=== PATIENT | male | born 1960 | race Caucasian/White ===

== ENCOUNTER → 2020-06-09 09:30 | Outpatient (BNV) | payer MEDICARE, OTHER, MEDICAID, SELFPAY | PROVIDERS: PCP Internal Medicine; Visit Provider Internal Medicine | DX: C18.0 Malignant neoplasm of cecum (principal); C78.7 Secondary malignant neoplasm of liver and intrahepatic bile duct; N17.9 Acute kidney failure, unspecified; E87.5 Hyperkalemia | CPT/HCPCS: 99212; 99213; 99214; 99215; G2211 ==

== ENCOUNTER → 2020-08-10 13:47 | Outpatient (BNVA) | payer OTHER, SELFPAY | PROVIDERS: PCP Internal Medicine; Visit Provider Hospitalist | DX: Z76.89 Persons encountering health services in other specified circumstances (principal) ==

== ENCOUNTER → 2020-11-08 13:27 | Outpatient (BNVA) | payer OTHER, SELFPAY | PROVIDERS: PCP Internal Medicine; Visit Provider Hospitalist | DX: J84.10 Pulmonary fibrosis, unspecified (principal); J84.9 Interstitial pulmonary disease, unspecified; J96.11 Chronic respiratory failure with hypoxia; C18.9 Malignant neoplasm of colon, unspecified; C78.7 Secondary malignant neoplasm of liver and intrahepatic bile duct; Z79.899 Other long term (current) drug therapy; Z87.891 Personal history of nicotine dependence | CPT/HCPCS: 99212 ==

== ENCOUNTER 2020-12-08 07:50 | Outpatient (REF) | payer OTHER, SELFPAY ==
--- NOTE | ~2020-12-08 | CT_ITS ---
EXAMINATION: CT CHEST WITHOUT IV CONTRAST AND ABDOMEN AND PELVIS WITH AND WITHOUT IV CONTRAST CLINICAL INFORMATION: Colon cancer. Worsening liver function tests. COMPARISON: Previous chest x-rays most recent April 2020, chest CT June [address] of the abdomen and pelvis September 2019 TECHNIQUE: Axial images through the chest without contrast. Axial images through the abdomen and pelvis with and without contrast. Sagittal and coronal reconstructions on the technologist workstation were performed. Patient dose 172+800 mg/cm. This CT examination was performed using dose optimization techniques as appropriate, variously including the following: *Automated exposure control *Adjustment of mA and/or kV according to patient size (this includes techniques or standardized protocols for targeted exams where dose is matched to indication/reason for exam; i.e. extremities or head) *Use of iterative reconstruction technique FINDINGS: Chest: There are increased peripheral interstitial markings with increased peripheral reticulation, traction bronchiolectasis and question of some honeycombing. This is seen diffusely throughout the lungs. This does not appear appreciably changed from June 2019 exam. There is a 5 mm peripheral or subpleural right upper lobe nodule adjacent to the mediastinal surface axial image 104 series 7 that is stable. There is a 3 mm peripheral or subpleural left upper lobe nodule adjacent to the central mediastinal surface axial image 98 series 7 that is stable. There is a new 7 mm left upper lobe nodule axial image 235 series 7. There is a new 4 mm left upper lobe nodule axial image 268 series 7. There is a new 4 mm left lower lobe nodule axial image 3/7. There is a new 4 mm left lower lobe nodule axial image 316 series 7. There is a new 4 x 5 mm left lower lobe nodule axial image 417 series 7. There is question of a a new peripheral or subpleural right lower lobe nodule that measures 7 x 8 mm axial image 275 series 7. There is a right jugular port with tip projecting over the SVC. The heart does not appear enlarged. There is mild coronary artery calcification. There is no pericardial effusion. The thoracic aorta is normal in caliber. There are no enlarged hilar or mediastinal lymph nodes. No chest wall mass or enlarged axillary lymph nodes are seen. There is no pleural or pericardial effusion. Review of bone windows demonstrates degenerative changes of the spine. ABDOMEN: The liver is low in attenuation suggestive of fatty infiltration. There are multiple slightly high attenuation liver lesions seen in both lobes of the liver. These do not demonstrate appreciable enhancement post contrast and appear decreased in size from prior CT September 2019. These may represent treated lesions. The largest lesion measures 1.5 x 2.5 cm in the left lobe axial image 19 compared to 2.3 x 2.8 cm axial image 17 series 09/15/2019 and 2.2 cm in the right lobe axial image 21 compared to 2.6 x 3.2 cm axial image 13 series 09/15/2019. No new liver lesion is seen. The gallbladder is unremarkable. There is no biliary duct dilatation. The spleen is unremarkable. The pancreas is unremarkable. The adrenal glands are unremarkable. There are small lateral renal cysts. The kidneys are otherwise unremarkable. The bladder is unremarkable. Prostate gland is upper normal in size. There is diverticulosis of the colon. There is diffuse wall thickening and low attenuation suggestive of a edema in the colon from the right colon and transverse colon and left colon and proximal sigmoid colon. Findings are questionable for colitis. Air is a left lower quadrant ileostomy. The appendix is unremarkable. The stomach is unremarkable. Definite colon mass is not appreciated. There is a stranding of the fat seen in the root of the small bowel mesentery. This does not appear appreciably changed. No adenopathy is seen. No evidence of peritoneal disease is seen. There is no ascites. No significant hernia is seen. There is evidence of atherosclerotic disease. No aneurysm is seen. The prostate gland is slightly enlarged. There are degenerative changes of the spine. No bone lesion is seen. CT/CT abdomen pelvis wo/w con IMPRESSION: Chest: Peripheral interstitial lung disease not appreciably changed from previous exam from 2019. New lobe pulmonary nodules, largest measuring 7 mm in the left upper lobe and question 7 x 8 mm in the right lower lobe. Abdomen and pelvis: Low-attenuation liver suggestive of fatty infiltration. Multiple partially calcified liver lesions that do not demonstrate evidence of enhancement and appear decreased in size compared to prior exams. This may represent a treated liver lesions. No new liver lesion seen. Diverticulosis of the colon. Wall thickening and edema of the right transverse and left colon questionable for mild colitis. Left lower quadrant ileostomy. No colon mass appreciated.
[2020-12-08] MEDS: iohexoL 350 MG/ML 100 ML INFUS..BTL IV (11:04)
== END 2020-12-08 07:51 | disposition home or self-care (01) ==
LOC: HO.CT 07:50
PROVIDERS: PCP Internal Medicine; Referring Provider Hospitalist; Visit Provider Internal Medicine
DX: C18.9 Malignant neoplasm of colon, unspecified (principal); C78.7 Secondary malignant neoplasm of liver and intrahepatic bile duct; J84.9 Interstitial pulmonary disease, unspecified; J84.10 Pulmonary fibrosis, unspecified
CPT/HCPCS: 71250; 74178; Q9967

== ENCOUNTER → 2021-02-04 13:30 | Outpatient (BNVA) | payer OTHER, SELFPAY | PROVIDERS: PCP Internal Medicine; Visit Provider Hospitalist | DX: R91.1 Solitary pulmonary nodule (principal); C18.9 Malignant neoplasm of colon, unspecified; C78.7 Secondary malignant neoplasm of liver and intrahepatic bile duct; J84.10 Pulmonary fibrosis, unspecified; J84.9 Interstitial pulmonary disease, unspecified; J96.11 Chronic respiratory failure with hypoxia | CPT/HCPCS: 99212 ==

== ENCOUNTER 2021-02-11 14:03 | Outpatient (REF) | payer OTHER, SELFPAY ==
--- NOTE | ~2021-02-11 | CT_ITS ---
EXAMINATION: CT CHEST WITHOUT CONTRAST CLINICAL INFORMATION: Follow-up pulmonary nodule COMPARISON: Previous chest CT most recent November 2020 TECHNIQUE: Multidetector volumetric CT imaging of the chest was done. Axial MIP volume rendering provided. Sagittal and coronal reformatted images were obtained. This CT examination was performed using dose optimization techniques as appropriate, variously including the following: *Automated exposure control *Adjustment of mA and/or kV according to patient size (this includes techniques or standardized protocols for targeted exams where dose is matched to indication/reason for exam; i.e. extremities or head) *Use of iterative reconstruction technique DLP: 156 mGy-cm FINDINGS: LUNGS: There are increased peripheral interstitial markings with increased peripheral reticulation and traction bronchiolectasis and question some honeycombing. This is seen diffusely throughout the lungs. Appearances are suggestive of interstitial lung disease. This does not appear appreciably changed from previous exams. There is a 5 mm peripheral right upper lobe nodule near the mediastinal surface, axial 120 series 7, that is stable. There is a 3 mm peripheral left upper lobe nodule near the mediastinal surface, axial image 115 series 7, that is stable. The previously identified new peripheral left upper lobe nodule measuring 7 mm, axial image 251 series 7, is unchanged. The previously identified 4 mm left upper lobe nodule, axial image 287 series 7, is stable. The questioned new peripheral or subpleural 7 mm right lower lobe nodule, axial image 292 series 7, is stable. The new 4 mm left lower lobe nodule, axial image 329 series 4, is stable. The 4 mm peripheral left lower lobe nodule, axial image 436 series 7, is stable. Some of these nodules may be related to progression of interstitial lung disease. MEDIASTINUM: There is a right jugular port tip projecting over the SVC. The visualized thyroid gland is unremarkable. The heart does not appear enlarged. There is mild coronary artery and aortic valve calcification. There is no pericardial effusion. The thoracic aorta is normal in caliber. PLEURA: There is no pleural effusion. No pleural mass or thickening. AXILLA: No lymphadenopathy. UPPER ABDOMEN: There are multiple high attenuation lesions seen throughout the liver. These do not appear appreciably changed and may represent treated lesions. Images through the upper abdomen are otherwise unremarkable. OSSEOUS STRUCTURES: There are degenerative changes of the spine. CT/CT chest wo con IMPRESSION: Interstitial lung disease. Stable pulmonary nodules. Coronary artery and aortic valve calcification. Stable appearance to the liver.
== END 2021-02-11 14:04 | disposition home or self-care (01) ==
LOC: HO.CT 14:03
PROVIDERS: PCP Internal Medicine; Visit Provider Hospitalist
DX: R91.1 Solitary pulmonary nodule (principal)
CPT/HCPCS: 71250

== ENCOUNTER → 2021-04-07 13:51 | Outpatient (BNVA) | payer OTHER, SELFPAY | PROVIDERS: PCP Internal Medicine; Visit Provider Hospitalist | DX: R91.1 Solitary pulmonary nodule (principal); C18.9 Malignant neoplasm of colon, unspecified; C78.7 Secondary malignant neoplasm of liver and intrahepatic bile duct; J84.10 Pulmonary fibrosis, unspecified; J84.9 Interstitial pulmonary disease, unspecified; J96.11 Chronic respiratory failure with hypoxia; Z79.899 Other long term (current) drug therapy | CPT/HCPCS: 99212 ==

== ENCOUNTER 2021-07-13 13:56 | Outpatient (REF) | payer MEDICARE, MEDICAID, SELFPAY ==
--- NOTE | ~2021-07-13 | CT_ITS ---
EXAMINATION: CT ABDOMEN AND PELVIS WITH CONTRAST CLINICAL INFORMATION: Malignant neoplasm of colon. COMPARISON: CT abdomen and pelvis 12/08/2020. TECHNIQUE: Multidetector volumetric images were obtained from the superior aspect of the liver through the pubic symphysis following administration 85 mL of Omnipaque 350 intravenous contrast. Sagittal and coronal reformatted images were obtained on the technologist's workstation. Oral contrast: No This CT examination was performed using dose optimization techniques as appropriate, variously including the following: *Automated exposure control *Adjustment of mA and/or kV according to patient size (this includes techniques or standardized protocols for targeted exams where dose is matched to indication/reason for exam; i.e. extremities or head) *Use of iterative reconstruction technique DLP: 301 mGy-cm FINDINGS: LUNG BASES: There is patchy ground-glass attenuation seen in the lingula, right middle lobe and both lower lobes likely atelectasis or scarring. The heart size is normal. LIVER, GALLBLADDER, AND BILIARY TREE: The liver is normal in size, shape, and mildly attenuated. There are hypodense lesions with peripheral enhancement most prominent in the left hepatic lobe measuring 1.7 x 1.0 cm. Previously, the same lesion was slightly larger and showed more heterogeneous enhancement and measured 1.5 x 2.5 cm. There is a second larger lesion in the right hepatic lobe posterior segment. The gallbladder is unremarkable with no evidence of radiopaque gallstones, gallbladder wall thickening, or obvious pericholecystic inflammatory changes. PANCREAS: Unremarkable. SPLEEN: Unremarkable. ADRENAL GLANDS: Unremarkable. KIDNEYS AND URETERS: The kidneys are normal in size, shape, and attenuation. No hydronephrosis, hydroureter, or calculi seen. No perinephric stranding. There is a 1.2 cm nonenhancing lesion midpole left kidney, likely a cyst. It is unchanged to previous study. BLADDER: The bladder is undistended with mild bladder wall thickening. GASTROINTESTINAL TRACT: A left ileostomy is noted in the midabdomen. There is diffuse colonic diverticulosis without mural thickening or diverticulitis. The small-bowel loops are well opacified with oral contrast and are normal caliber. No free air or free fluid seen. ABDOMINAL WALL: A small umbilical hernia containing fat is noted. There is left lower quadrant ileostomy. LYMPH NODES: There are small iliac shotty lymph nodes. VASCULAR: Mild atherosclerotic changes of abdominal aorta and common iliac arteries are noted without aneurysmal dilatation. PELVIC VISCERA: Previously visualized mural thickening involving the colon has significantly improved. There is nondistended colon, especially sigmoid and descending colon. OSSEOUS STRUCTURES: There are degenerative disc changes L5-S1 disc level with ventral and posterior spondylosis. No lytic or sclerotic process seen. CT/CT abdomen pelvis w con IMPRESSION: Colonic diverticulosis without any acute diverticulitis. There is a left lower quadrant ileostomy noted. The small-bowel loops are unremarkable. Mild hepatic steatosis. Multiple hepatic lesions seen previously show improvement in size as well as improved heterogeneity. No new lesions visualized. Moderate degenerative changes with spondylosis L5-S1 disc level. Fleischner guidelines were followed.
[2021-07-13] MEDS: iohexoL 350 MG/ML 100 ML INFUS..BTL IV (14:27)
== END 2021-07-13 13:57 | disposition home or self-care (01) ==
LOC: HO.CT 13:56
PROVIDERS: PCP Internal Medicine; Visit Provider Surgery
DX: C18.9 Malignant neoplasm of colon, unspecified (principal); C78.7 Secondary malignant neoplasm of liver and intrahepatic bile duct
CPT/HCPCS: 74177; Q9967

== ENCOUNTER → 2021-07-27 12:54 | Outpatient (BNVA) | payer MEDICARE, MEDICAID, SELFPAY | PROVIDERS: PCP Internal Medicine; Referring Provider Internal Medicine; Visit Provider Surgery | DX: C18.9 Malignant neoplasm of colon, unspecified (principal); C78.7 Secondary malignant neoplasm of liver and intrahepatic bile duct; Z93.2 Ileostomy status | CPT/HCPCS: 99212 ==

== ENCOUNTER 2022-03-06 13:54 | Outpatient (REF) | payer MEDICARE, MEDICAID, SELFPAY ==
--- NOTE | ~2022-03-06 | CT_ITS ---
EXAMINATION: CT ABDOMEN AND PELVIS WITH CONTRAST CLINICAL INFORMATION: Right upper quadrant pain. COMPARISON: 07/13/2021 TECHNIQUE: Multidetector volumetric images were obtained from the superior aspect of the liver through the pubic symphysis following administration 85 mL of Omnipaque 350 intravenous contrast. Sagittal and coronal reformatted images were obtained on the technologist's workstation. Oral contrast: Yes This CT examination was performed using dose optimization techniques as appropriate, variously including the following: *Automated exposure control *Adjustment of mA and/or kV according to patient size (this includes techniques or standardized protocols for targeted exams where dose is matched to indication/reason for exam; i.e. extremities or head) *Use of iterative reconstruction technique DLP: 426 mGy-cm FINDINGS: LUNG BASES: There are changes of chronic interstitial lung disease bilaterally. No pleural or pericardial effusion identified. LIVER, GALLBLADDER, AND BILIARY TREE: There are a few scattered calcified densities present as well as less than 5 mm low-density lesions. No evidence of hepatic laceration or subcapsular fluid collection. There is either a rim-enhancing or partially rim calcified lesion within segment IVb measuring approximately 2.4 x 2.1 x 2.2 cm in size and which previously measured 2.5 x 2.0 x 2.5 cm in size on study of 07/13/2021. Within segment VIII of the liver, there is a 2.3 x 1.9 x 2.6 cm lesion which either has rim calcification or some rim enhancement. Previously, on the most recent study, it was approximately 2.2 x 1.6 x 1.9 cm in size. Within segment VII, there is a rim calcified and rim-enhancing lesion measuring 2.1 x 1.8 x 1.6 cm in size which previously measured approximately 1.6 x 1.6 cm. There appear to be a few other poorly seen lesions with question of one in segment VII measuring 2.7 x 2.3 cm measuring by what appears to be vessel displacement. All of these lesions are significantly smaller compared to study of 02/12/2019. This is difficult to compare to study of 07/13/2021 due to being very faint and appears to measure approximately 2.5 x 2.1 cm in size. The gallbladder is unremarkable with no evidence of radiopaque gallstones, gallbladder wall thickening, or obvious pericholecystic inflammatory changes. PANCREAS: Unremarkable. SPLEEN: There is mild splenomegaly present with vertical span of 13 cm. ADRENAL GLANDS: Unremarkable. KIDNEYS AND URETERS: There are bilateral renal cysts present without definite abnormal solid mass. The kidneys are normal in size, shape, and attenuation. No hydronephrosis, hydroureter, or calculi seen. No perinephric stranding. BLADDER: There appears to be some bladder wall thickening present. GASTROINTESTINAL TRACT: No dilated loops of large or small bowel are evident. No free air or free fluid is seen. There is diverticulosis of the sigmoid colon without evidence of acute diverticulitis. No significant pericolonic inflammatory change is seen. The appendix appears unremarkable. Ileostomy in place. ABDOMINAL WALL: Left lower quadrant ileostomy without parastomal hernia. LYMPH NODES: No lymphadenopathy appreciated. VASCULAR: Mild aortoiliac calcified plaque present. PELVIC VISCERA: Unremarkable. 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 No suspicious destructive bony lesion identified. There appears be osteopenia. There is loss of the L5-S1 disc space. CT/CT abdomen pelvis w con IMPRESSION: Mild splenomegaly. No evidence of significant progression of hepatic disease as described. Patent ileostomy without evidence of parastomal hernia. No evidence of acute cholecystitis. Fleischner guidelines were followed.
[2022-03-06] MEDS: iohexoL 350 MG/ML 100 ML INFUS..BTL IV (17:15)
[2022-03-06] MEDS: Barium Sulfate Oral (Mocha) 450 ML ORAL.SUSP 900 ML PO (17:58)
== END 2022-03-06 13:55 | disposition home or self-care (01) ==
LOC: HO.CT 13:54
PROVIDERS: PCP Internal Medicine; Visit Provider Internal Medicine
DX: C18.9 Malignant neoplasm of colon, unspecified (principal); C78.7 Secondary malignant neoplasm of liver and intrahepatic bile duct
CPT/HCPCS: 74177; Q9967

== ENCOUNTER 2022-07-18 13:50 | Outpatient (REF) | payer MEDICARE, MEDICAID, SELFPAY ==
--- NOTE | ~2022-07-18 | CT_ITS ---
EXAMINATION: CT CHEST, ABDOMEN AND PELVIS WITH IV CONTRAST CLINICAL INFORMATION: Response to treatment. COMPARISON: CT chest 01/12/[address] abdomen and pelvis 03/06/2022. TECHNIQUE: 5 mm thin axial and reformatted 3 mm thin sagittal and coronal images of chest, abdomen and pelvis were obtained with IV 85 mL Omnipaque 350. This CT examination was performed using dose optimization technique as appropriate, variously including the following: Automated exposure control Adjustment of MA and/or KV according to patient size(this includes techniques or standardized protocols for targeted exams where dose is matched to indication/reason for exam; extremities or head. Use of iterative reconstruction techniques. DLP: 379 mGy-cm FINDINGS: CHEST: Lungs: There is diffuse centrilobular emphysema with prominent bilateral intralobular and interlobular interstitial thickening. There is subpleural reticular stranding and ground-glass opacity in both upper lobes. There is honeycombing visualized in both upper lobes anterior segments. There is a 2 mm nodule left upper lobe axial image 175/7; ill-defined opacity subpleural measuring 5 mm axial image 175/7; 4 mm nodule left upper lobe image 183/7; 1.1 cm x 0.9 cm nodule left upper lobe with mild tenting of the fissure and strands extending to the pleural surface, highly suspicious on axial image 206/7; 7 mm nodule right lower lobe axial image 207/7; ill-defined patchy linear opacity in the lingula pleural-based likely scarring or a nodule measuring 2.0 x 0.7 cm on sagittal image 35/6; and posterior basal segment ill-defined density measuring 0.72 cm on axial image 366/7. Mediastinum: The thyroid lobes are symmetric and normal. The central trachea and the bronchi are widely patent. The heart size is normal. There is a 4-vessel branching of the arch with normal caliber arch. There are mild coronary artery calcifications present. No pericardial effusion seen. No abnormal size mediastinal or hilar lymph nodes seen. There is a right central venous port with its tip in mid SVC. Pleura: There is focal posterior pleural thickening seen in both lower lobes. There is mild fissural thickening involving the inferior right major fissure with some of it fatty tissue. Axilla: There are no abnormal axillary lymph nodes. There is a port along the right upper anterior chest wall. Rest of the chest wall is unremarkable. Osseous Structures: No aggressive lytic or sclerotic process seen. Moderate ventral spondylosis seen in mid and lower dorsal spine. ABDOMEN AND PELVIS: Liver, Ducts and Gallbladder: The liver is normal size, contour and density. There is ill-defined hypodensity right hepatic lobe measuring 2.12 x 1.90 cm. Rest of the liver is unremarkable. There is no intrahepatic ductal dilatation. No radiopaque gallstones or wall thickening seen. Spleen: Unremarkable. Pancreas: Unremarkable. Adrenal Glands: Unremarkable. Kidneys and Ureters: Both kidneys are normal size, shape and position. There is a nonenhancing 1.2 cm hypodense lesion measuring 9 Hounsfield units likely simple cyst in mid to lower pole left kidney. Partially exophytic 9 mm lesion seen along the posterior cortex mid to lower pole right kidney. Lymphovascular Structures: Abdominal aorta is normal caliber except for mild atherosclerotic changes. No abnormal size lymph nodes visualized. GI Tract: There is scattered stool, diverticuli and gas seen throughout the colon without significant distention. There is no evidence of diverticulitis. Oral contrast opacified small-bowel loops are normal caliber. Nonspecific mild mural thickening seen involving the ascending colon on coronal image 43/4. There is a left lower quadrant ileostomy, patent. No free air, free fluid or inflammatory process in the peritoneum. Anterior Abdominal Wall: Besides a left lower quadrant ileostomy and a small umbilical hernia containing fat, rest of the abdominal ultrasound is unremarkable. Pelvis: There is minimal thickening of the bladder wall but nondistended. No pelvic mass seen. The prostate gland is mildly enlarged. Osseous Structures: Mild degenerative disc changes with ventral spondylosis L5-S1 disc level. No aggressive lytic or sclerotic process seen. CT/CT abdomen pelvis w IV con IMPRESSION: 1. Diffuse emphysema with chronic interstitial changes in both upper lobes. There are multiple pulmonary nodules, the largest in the left upper lobe measuring 1.1 cm. 2. No abnormal mediastinal or axillary lymphadenopathy seen. 3. Ill-defined hypodensity right hepatic lobe, indeterminate. 4. Bilateral renal cysts. 5. Colonic diverticulosis without diverticulitis. 6. Left lower quadrant ileostomy is patent. Small umbilical hernia containing fat. 7. Mild prostate enlargement. 8. Right central venous port with its tip in mid SVC.
[2022-07-18] MEDS: iohexoL 350 MG/ML 100 ML INFUS..BTL IV (16:45)
[2022-07-18] MEDS: Barium Sulfate Oral (Mocha) 450 ML ORAL.SUSP 900 ML PO (16:45)
== END 2022-07-18 13:51 | disposition home or self-care (01) ==
LOC: HO.CT 13:50
PROVIDERS: PCP Internal Medicine; Visit Provider Internal Medicine
DX: C18.9 Malignant neoplasm of colon, unspecified (principal); C78.7 Secondary malignant neoplasm of liver and intrahepatic bile duct
CPT/HCPCS: 71260; 74177; Q9967

== ENCOUNTER 2022-08-04 14:48 | Observation (INO) | payer MEDICARE, MEDICAID, SELFPAY ==
[2022-08-04 15:21] VITALS: BP 103/60; PULSE 85; RESP 18; TEMP 36.8; O2SAT 92; BMI 20.9
--- NOTE | 2022-08-04 15:22 | ED.GENADULT ---
HPI - General Adult General Chief complaint: Nausea/Vomiting/Diarrhea <SANDRO Hargrove - Last Filed: 08/04/22 15:24> Stated complaint: fever, vomiting <SANDRO Hargrove - Last Filed: 08/04/22 15:24> Time Seen by Provider: 08/04/22 18:14 <SANDRO Hargrove - Last Filed: 08/04/22 15:24> Source: patient <Reina Lopez NP - Last Filed: 08/04/22 23:21> Mode of arrival: ambulatory <Reina Lopez NP - Last Filed: 08/04/22 23:21> Limitations: no limitations <Reina Lopez NP - Last Filed: 08/04/22 23:21> History of Present Illness HPI narrative: 62-year-old male with stage IV colon cancer metastatic to his liver and lung, has a colostomy bag, presents for nausea, vomiting, and fever for the past few days. States that he cannot take his meds, he feels like he is he is on morphine 30 mg with breakthrough oxycodone. He noted that his meds were whole in his colostomy bag this morning. He is a patient of Dr. Mckee. <Reina Lopez NP - Last Filed: 08/04/22 23:21> Onset (ago): day(s) (2) <Reina Lopez NP - Last Filed: 08/04/22 23:21> Location: abdomen <Reina Lopez NP - Last Filed: 08/04/22 23:21> Radiation: non-radiation <Reina Lopez NP - Last Filed: 08/04/22 23:21> Severity: moderate <Reina Lopez NP - Last Filed: 08/04/22 23:21> Severity scale (1-10): 7 <Reina Lopez NP - Last Filed: 08/04/22 23:21> Quality: aching and constant <Reina Lopez NP - Last Filed: 08/04/22 23:21> Pain Consistency: constant <Reina Lopez NP - Last Filed: 08/04/22 23:21> Relieving factors: none <Reina Lopez NP - Last Filed: 08/04/22 23:21> Associated symptoms: fever/chills, loss of appetite, malaise, nausea/vomiting and weakness <Reina Lopez NP - Last Filed: 08/04/22 23:21> Treatments prior to arrival: none <Reina Lopez NP - Last Filed: 08/04/22 23:21> Related Data Home medications: Home Medications Medication Instructions Recorded Confirmed loperamide 2 mg capsule 2 mg PO BID PRN Diarrhea 05/19/20 08/04/22 acetaminophen 650 mg 650 mg PO Q6H PRN Pain 08/04/22 08/04/22 tablet,extended release omeprazole 40 mg capsule,delayed 40 mg PO DAILY@0630 08/04/22 08/04/22 release Previous Rx's Medication Instructions Recorded albuterol sulfate 90 mcg/actuation 2 puff inhalation Q6H PRN 11/08/20 aerosol inhaler (ProAir HFA) shortness of breath or wheezing 30 days colostomy bag, non-sterile 1 / #10 ea 03/29/21 (12 ) (Natura Drainable Pouch) ferrous sulfate 325 mg (65 mg 325 mg PO BID #60 tabs 10/12/21 iron) tablet (iron) ondansetron HCl 8 mg tablet 8 mg PO Q6-8H PRN Nausea And 01/16/22 Vomiting #60 tabs cholestyramine (with sugar) 4 gram 1 ea PO BID #60 ea 05/02/22 powder for susp in a packet (Questran) amoxicillin 500 mg-potassium 1 tab PO Q12H #20 tabs 06/29/22 clavulanate 125 mg tablet (Augmentin) oxycodone 5 mg tablet 5 mg PO Q8H PRN Pain #60 tabs 07/27/22 morphine 30 mg tablet,extended 30 mg PO BID #60 tabs 07/31/22 release (MS Contin) <SANDRO Hargrove - Last Filed: 08/04/22 15:24> Allergies/adverse reactions: Allergies Allergy/AdvReac Type Severity Reaction Status Date / Time prednisone [PREDNISONE] AdvReac Intermediate Psychosis Verified 07/26/22 10:39 <SANDRO Hargrove - Last Filed: 08/04/22 15:24> Review of Systems Review of Systems: Constitutional: positive Fever, positive Chills, positive fatigue, positive Malaise ENT/Mouth: No sore throat, no runny nose Eyes: No Discharge Cardiovascular: No Chest Pain, No SOB Respiratory: Positive Cough, No Sputum, No Wheezing, No Dyspnea Gastrointestinal: Positive Nausea, positive Vomiting, positive Diarrhea Musculoskeletal: positive Myalgia Skin: No rash Neuro: No Headache <Reina Lopez NP - Last Filed: 08/04/22 23:21> Yes all other systems are reviewed and are negative <Reina Lopez NP - Last Filed: 08/04/22 23:21> FOR[facility]LY [facility] Past Medical History Attestation statement: The following information was validated with the patient. <Reina Lopez NP - Last Filed: 08/04/22 23:21> Source: old records reviewed <Reina Lopez NP - Last Filed: 08/04/22 23:21> Medical History: Medical History Chronic respiratory failure ILD (interstitial lung disease) Pulmonary fibrosis Pulmonary nodule Tubular adenoma <SANDRO Hargrove - Last Filed: 08/04/22 15:24> Surgical History: Surgical History H/O knee surgery <SANDRO Hargrove - Last Filed: 08/04/22 15:24> Family History Family History: Family History Son Cystic fibrosis Brother Esophageal cancer Maternal Aunt Lung cancer <SANDRO Hargrove - Last Filed: 08/04/22 15:24> Social History Social History: Social History Household Members: Spouse and Children Advance Directives: Yes Advance Directives on File: Yes Advance Directives Date on File: 10/25/21 service: No Current occupational status: employed Current occupation: [employer] <SANDRO Hargrove - Last Filed: 08/04/22 15:24> Physical Exam ED Vital Signs: Vital Signs - 24 hr 08/04/22 15:21 08/04/22 19:23 Temperature 98.2 F 98.1 F Pulse Rate 85 70 Respiratory Rate 18 18 Blood Pressure 103/60 114/51 L Pulse Oximetry 92 95 Oxygen Delivery Method Room Air Room Air BMI result Body Mass Index 20.9 <SANDRO Hargrove - Last Filed: 08/04/22 15:24> Vital Signs - 24 hr 08/04/22 15:21 08/04/22 19:23 Temperature 98.2 F 98.1 F Pulse Rate 85 70 Respiratory Rate 18 18 Blood Pressure 103/60 114/51 L Pulse Oximetry 92 95 Oxygen Delivery Method Room Air Room Air BMI result Body Mass Index 20.9 <Reina Lopez NP - Last Filed: 08/04/22 23:21> Appearance: Alert. Oriented X3. Moderate distress. Thin. Eyes: Pupils equal, round and reactive to light. Sclera nonicteric. ENT: Pharynx normal. Dry mucous membranes. Neck: Normal inspection. Neck supple. CVS: Normal heart rate and rhythm. Pulses normal. Respiratory: No respiratory distress. Breath sounds normal. Abdomen: Soft and nontender. Colostomy bag in place. Patent. Skin: Skin warm and dry. Normal skin color. Normal skin turgor. Extremities: No lower extremity edema. Gait balanced and coordinated. Neuro: No motor deficit. No sensory deficit. Cranial nerves 2-12 intact. <Reina Lopez NP - Last Filed: 08/04/22 23:21> Course Course Course Narrative: RME - 62 yo male with history of metastatic colon cancer on chemo with Dr. Mckee, chronic pain on chronic pain meds who presents to the ER with 2-3 days of vomiting and unable to keep anything down. Last got chemo on 07/26. Unable to keep his meds down including his morphine and he feels like he is going through withdrawals. He has had low grade fevers along with increased ostomy output. Feels dehydrated. Dr. Mckee told him to come to ER. <SANDRO Hargrove - Last Filed: 08/04/22 15:24> RME - 62 yo male with history of metastatic colon cancer on chemo with Dr. Mckee, chronic pain on chronic pain meds who presents to the ER with 2-3 days of vomiting and unable to keep anything down. Last got chemo on 07/26. Unable to keep his meds down including his morphine and he feels like he is going through withdrawals. He has had low grade fevers along with increased ostomy output. Feels dehydrated. Dr. Mckee told him to come to ER. 62-year-old male presents for nausea, vomiting, fevers, chills, and a suspicion of withdrawal. Patient has been unable to take his pain medications for stage IV colon cancer with metastatic disease to the liver. Patient has been vomiting, and noted that his pills were whole in his colostomy bag. Patient appears dry, will order L of fluids. Labs are pending. Labs indicated white count of 2.4 slightly lower than his prior values, H&H 12.5/37.8 which is consistent with his prior values. I did discuss his plan with Dr. Mckee, patient is influenza positive, plan is to admit for supportive measures, IV fluids, and pain management. 19:30 discussion with hospitalist, plan is for CT abdomen pelvis to rule out obstruction. Patient will be admitted for influenza, nausea, vomiting, and uncontrolled pain. <Reina Lopez NP - Last Filed: 08/04/22 23:21> Consultations Consultation #1: Dr. Mckee <Reina Lopez NP - Last Filed: 08/04/22 23:21> Time: 18:56 <Reina Lopez NP - Last Filed: 08/04/22 23:21> Consultation #2: Dr Hill <Reina Lopez NP - Last Filed: 08/04/22 23:21> Time: 19:30 <Reina Lopez SAFE DEPOSIT CLERK - Last Filed: 08/04/22 23:21> Medications Administered Generic Name Dose Route Start Last Admin Trade Name Jerq PRN Reason Stop Dose Admin Amoxicillin/Clavulanate Potassium 500 mg 08/04/22 21:00 08/04/22 22:29 Amoxicillin/Potassium Clav 500 Mg Tablet PO 500 mg BID PINEDA Administration Cholestyramine Resin 4 gm 08/04/22 21:00 08/04/22 22:29 Cholestyramine (With Sugar) 4 Gm Powd.Pack PO 4 gm BID PINEDA Administration Sodium Chloride 1,000 mls @ 125 mls/hr 08/04/22 20:30 08/04/22 21:30 Ns IVCONT 125 mls/hr .Q8H PINEDA Administration Oseltamivir Phosphate 75 mg 08/04/22 20:30 08/04/22 22:29 Oseltamivir Phosphate 75 Mg Capsule PO 08/09/22 08:31 75 mg Q12H PINEDA Administration Discontinued Medications Generic Name Dose Route Start Last Admin Trade Name Jerq PRN Reason Stop Dose Admin Hydromorphone HCl 2 mg 08/04/22 18:26 08/04/22 19:01 Hydromorphone Hcl 2 Mg/Ml Vial IVPUSH 08/04/22 18:27 2 mg ONCE ONE Administration Protocol Sodium Chloride 1,000 mls @ 999 mls/hr 08/04/22 18:30 08/04/22 21:36 Ns IVCONT 08/04/22 19:30 Infused .Q1H1M PINEDA Infusion Ondansetron HCl 4 mg 08/04/22 18:26 08/04/22 19:02 Ondansetron Hcl 4 Mg/2 Ml Vial IVPUSH 08/04/22 18:27 4 mg ONCE ONE Administration Prochlorperazine Edisylate 10 mg 08/04/22 21:52 08/04/22 22:06 Prochlorperazine Edisylate 10 Mg/2 Ml Vial IVPUSH 08/04/22 21:53 10 mg ONCE ONE Administration <SANDRO Hargrove - Last Filed: 08/04/22 15:24> Medications Administered Generic Name Dose Route Start Last Admin Trade Name Eusebio PRN Reason Stop Dose Admin Amoxicillin/Clavulanate Potassium 500 mg 08/04/22 21:00 08/04/22 22:29 Amoxicillin/Potassium Clav 500 Mg Tablet PO 500 mg BID PINEDA Administration Cholestyramine Resin 4 gm 08/04/22 21:00 08/04/22 22:29 Cholestyramine (With Sugar) 4 Gm Powd.Pack PO 4 gm BID PINEDA Administration Sodium Chloride 1,000 mls @ 125 mls/hr 08/04/22 20:30 08/04/22 21:30 Ns IVCONT 125 mls/hr .Q8H PINEDA Administration Oseltamivir Phosphate 75 mg 08/04/22 20:30 08/04/22 22:29 Oseltamivir Phosphate 75 Mg Capsule PO 08/09/22 08:31 75 mg Q12H PINEDA Administration Discontinued Medications Generic Name Dose Route Start Last Admin Trade Name Eusebio PRN Reason Stop Dose Admin Hydromorphone HCl 2 mg 08/04/22 18:26 08/04/22 19:01 Hydromorphone Hcl 2 Mg/Ml Vial IVPUSH 08/04/22 18:27 2 mg ONCE ONE Administration Protocol Sodium Chloride 1,000 mls @ 999 mls/hr 08/04/22 18:30 08/04/22 21:36 Ns IVCONT 08/04/22 19:30 Infused .Q1H1M PINEDA Infusion Ondansetron HCl 4 mg 08/04/22 18:26 08/04/22 19:02 Ondansetron Hcl 4 Mg/2 Ml Vial IVPUSH 08/04/22 18:27 4 mg ONCE ONE Administration Prochlorperazine Edisylate 10 mg 08/04/22 21:52 08/04/22 22:06 Prochlorperazine Edisylate 10 Mg/2 Ml Vial IVPUSH 08/04/22 21:53 10 mg ONCE ONE Administration <Reina Lopez NP - Last Filed: 08/04/22 23:21> Medical Decision Making Differential Diagnosis Differential Diagnoses: The differential diagnosis associated with the presentation includes <Reina Lopez NP - Last Filed: 08/04/22 23:21> Obstruction, COVID, influenza, RSV <Reina Lopez NP - Last Filed: 08/04/22 23:21> Admission/Observation Consideration of admission/observation: Escalation of care including admission/observation considered <Reina Lopez NP - Last Filed: 08/04/22 23:21> Admission considered, patient admitted to the hospitalist service <Reina Lopez NP - Last Filed: 08/04/22 23:21> Consult Healthcare Provider Management of the patient was discussed with: Hospitalist and Animal Husbandman <Reina Lopez NP - Last Filed: 08/04/22 23:21> Lab Data MDM Lab Attestation statement: I reviewed the patient's lab results. <Reina Lopez NP - Last Filed: 08/04/22 23:21> Result Diagrams: : 08/04/22 15:39 08/04/22 15:39 <SANDRO Hargrove - Last Filed: 08/04/22 15:24> Labs: Lab Results 08/04/22 08/04/22 08/04/22 Range/Units 15:39 15:39 18:07 WBC 2.4 L (4.8-10.8) X10*3/uL RBC 4.03 L (4.60-5.80) X10*6/uL Hgb 12.5 L (14.0-18.0) g/dl Hct 37.8 L (42.0-52.0) % MCV 93.8 (80.0-98.0) fL MCH 31.0 (27.0-33.0) pg MCHC 33.1 (31.0-36.0) g/dl RDW 15.9 (11.0-16.0) % Plt Count 120 L (160-400) X10*3/uL MPV 11.9 (9.4-12.4) fL Immature Gran % (Auto) 0.0 (0.0-0.4) % Neut % (Auto) 71.6 (45-73) % Lymph % (Auto) 14.8 L (20-40) % [place] % (Auto) 13.2 H (2-11) % Eos % (Auto) 0.4 (0-4) % Baso % (Auto) 0.0 (0-2) % Lymph # (Auto) 0.4 L (1.2-4.9) X10*3/uL [place] # (Auto) 0.3 (0.1-1.2) X10*3/uL Eos # (Auto) 0.0 (0.0-0.4) X10*3/uL Baso # (Auto) 0.0 (0.0-0.2) X10*3/uL Abs Immat Gran (auto) 0.00 (0.00-0.03) X10*3/uL Absolute Neuts (auto) 1.7 L (2.0-8.3) x10*3/uL Absolute Nucleated RBC 0.000 (0.0-0.012) X10*3/uL Nucleated RBC % (auto) 0.0 (0.0-0.2) /100WBC Smear Tech's Comments VERIFIED Sodium 133 L (135-145) mmol/L Potassium 4.3 (3.3-5.1) mmol/L Chloride 97 (96-108) mmol/L Carbon Dioxide 26 (22-29) mmol/L Anion Gap 14 (12-20) BUN 17 H (9-16) mg/dL Creatinine 0.90 (0.5-1.4) mg/dL Estim Creat Clear Calc 79.7 Estimated GFR > 60 Random Glucose 107 (60-115) mg/dL Lactic Acid (0.5-2.0) mmol/L Calcium 9.0 (8.4-10.2) mg/dL Magnesium 1.8 (1.6-2.6) mg/dL Total Bilirubin 1.6 H (0.0-1.0) mg/dL Direct Bilirubin 0.5 (0.0-0.5) mg/dL AST 37 (5-37) U/L ALT 25 (0-40) U/L Alkaline Phosphatase 89 (39-117) U/L Total Protein 6.8 (6.5-8.0) g/dL Albumin 4.0 (3.5-5.0) g/dL Lipase 8 (8-78) U/L Influenza Type A (PCR) POSITIVE A (Negative) Influenza Type B (PCR) NEGATIVE (Negative) RSV RNA Qual (PCR) NEGATIVE (Negative) SARS-CoV-2 RNA (RT-PCR) NEGATIVE (Negative) 08/04/22 Range/Units 18:50 WBC (4.8-10.8) X10*3/uL RBC (4.60-5.80) X10*6/uL Hgb (14.0-18.0) g/dl Hct (42.0-52.0) % MCV (80.0-98.0) fL MCH (27.0-33.0) pg MCHC (31.0-36.0) g/dl RDW (11.0-16.0) % Plt Count (160-400) X10*3/uL MPV (9.4-12.4) fL Immature Gran % (Auto) (0.0-0.4) % Neut % (Auto) (45-73) % Lymph % (Auto) (20-40) % [place] % (Auto) (2-11) % Eos % (Auto) (0-4) % Baso % (Auto) (0-2) % Lymph # (Auto) (1.2-4.9) X10*3/uL [place] # (Auto) (0.1-1.2) X10*3/uL Eos # (Auto) (0.0-0.4) X10*3/uL Baso # (Auto) (0.0-0.2) X10*3/uL Abs Immat Gran (auto) (0.00-0.03) X10*3/uL Absolute Neuts (auto) (2.0-8.3) x10*3/uL Absolute Nucleated RBC (0.0-0.012) X10*3/uL Nucleated RBC % (auto) (0.0-0.2) /100WBC Smear Tech's Comments Sodium (135-145) mmol/L Potassium (3.3-5.1) mmol/L Chloride (96-108) mmol/L Carbon Dioxide (22-29) mmol/L Anion Gap (12-20) BUN (9-16) mg/dL Creatinine (0.5-1.4) mg/dL Estim Creat Clear Calc Estimated GFR Random Glucose (60-115) mg/dL Lactic Acid 1.2 (0.5-2.0) mmol/L Calcium (8.4-10.2) mg/dL Magnesium (1.6-2.6) mg/dL Total Bilirubin (0.0-1.0) mg/dL Direct Bilirubin (0.0-0.5) mg/dL AST (5-37) U/L ALT (0-40) U/L Alkaline Phosphatase (39-117) U/L Total Protein (6.5-8.0) g/dL Albumin (3.5-5.0) g/dL Lipase (8-78) U/L Influenza Type A (PCR) (Negative) Influenza Type B (PCR) (Negative) RSV RNA Qual (PCR) (Negative) SARS-CoV-2 RNA (RT-PCR) (Negative) <SANDRO Hargrove - Last Filed: 08/04/22 15:24> Lab Results 08/04/22 08/04/22 08/04/22 Range/Units 15:39 15:39 18:07 WBC 2.4 L (4.8-10.8) X10*3/uL RBC 4.03 L (4.60-5.80) X10*6/uL Hgb 12.5 L (14.0-18.0) g/dl Hct 37.8 L (42.0-52.0) % MCV 93.8 (80.0-98.0) fL MCH 31.0 (27.0-33.0) pg MCHC 33.1 (31.0-36.0) g/dl RDW 15.9 (11.0-16.0) % Plt Count 120 L (160-400) X10*3/uL MPV 11.9 (9.4-12.4) fL Immature Gran % (Auto) 0.0 (0.0-0.4) % Neut % (Auto) 71.6 (45-73) % Lymph % (Auto) 14.8 L (20-40) % [place] % (Auto) 13.2 H (2-11) % Eos % (Auto) 0.4 (0-4) % Baso % (Auto) 0.0 (0-2) % Lymph # (Auto) 0.4 L (1.2-4.9) X10*3/uL [place] # (Auto) 0.3 (0.1-1.2) X10*3/uL Eos # (Auto) 0.0 (0.0-0.4) X10*3/uL Baso # (Auto) 0.0 (0.0-0.2) X10*3/uL Abs Immat Gran (auto) 0.00 (0.00-0.03) X10*3/uL Absolute Neuts (auto) 1.7 L (2.0-8.3) x10*3/uL Absolute Nucleated RBC 0.000 (0.0-0.012) X10*3/uL Nucleated RBC % (auto) 0.0 (0.0-0.2) /100WBC Smear Tech's Comments VERIFIED Sodium 133 L (135-145) mmol/L Potassium 4.3 (3.3-5.1) mmol/L Chloride 97 (96-108) mmol/L Carbon Dioxide 26 (22-29) mmol/L Anion Gap 14 (12-20) BUN 17 H (9-16) mg/dL Creatinine 0.90 (0.5-1.4) mg/dL Estim Creat Clear Calc 79.7 Estimated GFR > 60 Random Glucose 107 (60-115) mg/dL Lactic Acid (0.5-2.0) mmol/L Calcium 9.0 (8.4-10.2) mg/dL Magnesium 1.8 (1.6-2.6) mg/dL Total Bilirubin 1.6 H (0.0-1.0) mg/dL Direct Bilirubin 0.5 (0.0-0.5) mg/dL AST 37 (5-37) U/L ALT 25 (0-40) U/L Alkaline Phosphatase 89 (39-117) U/L Total Protein 6.8 (6.5-8.0) g/dL Albumin 4.0 (3.5-5.0) g/dL Lipase 8 (8-78) U/L Influenza Type A (PCR) POSITIVE A (Negative) Influenza Type B (PCR) NEGATIVE (Negative) RSV RNA Qual (PCR) NEGATIVE (Negative) SARS-CoV-2 RNA (RT-PCR) NEGATIVE (Negative) 08/04/22 Range/Units 18:50 WBC (4.8-10.8) X10*3/uL RBC (4.60-5.80) X10*6/uL Hgb (14.0-18.0) g/dl Hct (42.0-52.0) % MCV (80.0-98.0) fL MCH (27.0-33.0) pg MCHC (31.0-36.0) g/dl RDW (11.0-16.0) % Plt Count (160-400) X10*3/uL MPV (9.4-12.4) fL Immature Gran % (Auto) (0.0-0.4) % Neut % (Auto) (45-73) % Lymph % (Auto) (20-40) % [place] % (Auto) (2-11) % Eos % (Auto) (0-4) % Baso % (Auto) (0-2) % Lymph # (Auto) (1.2-4.9) X10*3/uL [place] # (Auto) (0.1-1.2) X10*3/uL Eos # (Auto) (0.0-0.4) X10*3/uL Baso # (Auto) (0.0-0.2) X10*3/uL Abs Immat Gran (auto) (0.00-0.03) X10*3/uL Absolute Neuts (auto) (2.0-8.3) x10*3/uL Absolute Nucleated RBC (0.0-0.012) X10*3/uL Nucleated RBC % (auto) (0.0-0.2) /100WBC Smear Tech's Comments Sodium (135-145) mmol/L Potassium (3.3-5.1) mmol/L Chloride (96-108) mmol/L Carbon Dioxide (22-29) mmol/L Anion Gap (12-20) BUN (9-16) mg/dL Creatinine (0.5-1.4) mg/dL Estim Creat Clear Calc Estimated GFR Random Glucose (60-115) mg/dL Lactic Acid 1.2 (0.5-2.0) mmol/L Calcium (8.4-10.2) mg/dL Magnesium (1.6-2.6) mg/dL Total Bilirubin (0.0-1.0) mg/dL Direct Bilirubin (0.0-0.5) mg/dL AST (5-37) U/L ALT (0-40) U/L Alkaline Phosphatase (39-117) U/L Total Protein (6.5-8.0) g/dL Albumin (3.5-5.0) g/dL Lipase (8-78) U/L Influenza Type A (PCR) (Negative) Influenza Type B (PCR) (Negative) RSV RNA Qual (PCR) (Negative) SARS-CoV-2 RNA (RT-PCR) (Negative) <Reina Lopez SAFE DEPOSIT CLERK - Last Filed: 08/04/22 23:21> Radiology Impression Discussion of test interpretation with radiology: I have reviewed the radiologist's reading. <Reina Lopez NP - Last Filed: 08/04/22 23:21> Radiologist Impression: FINDINGS: LUNG BASES: There is chronic interstitial lung disease with some peripheral regions of honeycombing and left lower lobe bronchiectasis. There are a few subpleural densities present within the left lower lobe likely related to scarring. No pleural or pericardial effusion. Coronary artery calcification present. LIVER, GALLBLADDER, AND BILIARY TREE: There are multiple high density lesions seen within the liver deep to largest being within segment 4A measuring 2.2 x 1.7 cm in size and within segment 7 measuring 1.8 x 2.0 cm in size. No intrahepatic bile duct dilatation is seen. The gallbladder is unremarkable with no evidence of radiopaque gallstones, gallbladder wall thickening, or obvious pericholecystic inflammatory changes.? PANCREAS: Unremarkable.? SPLEEN: Upper limits of normal in size. No focal mass.? ADRENAL GLANDS: Unremarkable.? KIDNEYS AND URETERS: The kidneys are normal in size, shape, and attenuation. No hydronephrosis, hydroureter, or calculi seen. There is prominent left perinephric stranding. There is a 1.3 cm left renal cyst. BLADDER: The bladder wall is thickened. No bladder calculi identified. GASTROINTESTINAL TRACT: No dilated loops of large or small bowel. No free air or free fluid. Sigmoid diverticulosis is present without evidence of acute diverticulitis. No evidence of acute appendicitis. Ileostomy seen left anterior abdominal wall. ABDOMINAL WALL: Left lower quadrant ileostomy without evidence of parastomal hernia.? LYMPH NODES: No lymphadenopathy appreciated. VASCULAR: No abdominal aortic aneurysm. Mild calcified aortoiliac plaque. PELVIC VISCERA: Unremarkable.? OSSEOUS STRUCTURES: There is osteopenia present. There is ankylosis of the right sacroiliac joint. L5-S1 degenerative disc disease. No suspicious destructive bony lesion identified.? CT/CT abdomen pelvis wo IV con IMPRESSION: Multiple hepatic lesions without significant change from July 18, 2022. ? No evidence of obstructive uropathy. ? No evidence of bowel ileus or obstruction. ? ? ? Fleischner guidelines were followed. EXAMINATION: XR CHEST CLINICAL INFORMATION: Port confirmation. COMPARISON: CT chest 07/18/2022. TECHNIQUE: Frontal view of the chest was obtained. FINDINGS: CT compatible right-sided chest port terminates at the level of the cavoatrial junction. Normal appearance of the cardiomediastinal silhouette. Redemonstration of background of chronic interstitial thickening with multifocal architectural distortion. Pulmonary nodules, including a dominant 1.1 cm left upper lobe nodule best visualized on recent CT from 07/18/2022. No new focal airspace opacity. No pleural effusion or pneumothorax. A linear radiolucency vertically oriented along the lateral left lung, favors to represent an artifact from an overlying skinfold. No acute osseous abnormalities. XR/XR chest 1V IMPRESSION: 1.? CT compatible right-sided chest port terminates at the level of the cavoatrial junction. 2.? No acute cardiopulmonary findings. 3.? Pulmonary nodules and architectural distortion are best visualized on recent CT from 07/18/2022. ? <Reina Lopez NP - Last Filed: 08/04/22 23:21> Independent Historian Clinical information obtained from an independent historian. History obtained from or confirmed by: Spouse <Reina Lopez NP - Last Filed: 08/04/22 23:21> External Record Review External record reviewed: Inpatient record, Office record, Outpatient record, Prior outpatient labs and Prior outpatient radiology <Reina Lopez NP - Last Filed: 08/04/22 23:21> Prescription Management I considered prescription management with: Pain Medication <Reina Lopez NP - Last Filed: 08/04/22 23:21> Chronic Conditions Patient?s care impacted by: Cancer <Reina Lopez NP - Last Filed: 08/04/22 23:21> Discharge Plan Discharge Clinical Impression: Dehydration, Colon cancer metastasized to liver, Influenza A <SANDRO Hargrove - Last Filed: 08/04/22 15:24> Patient Disposition: Admitted As Inpatient <SANDRO Hargrove - Last Filed: 08/04/22 15:24>
[2022-08-04 15:48] LABS: Eosinophils Percent Auto 0.4 % (0-4); Hematocrit 37.8 % (42.0-52.0); Hemoglobin 12.5 g/dl (14.0-18.0); Lymphocytes Absolute Auto 0.4 X10*3/uL (1.2-4.9); Lymphocytes Percent Auto 14.8 % (20-40); MANUAL DIFF FLAG SCAN; Mean Corpuscular HGB Conc 33.1 g/dl (31.0-36.0); Mean Corpuscular Volume 93.8 fL (80.0-98.0); Mean Platelet Volume 11.9 fL (9.4-12.4); Monocytes Absolute Auto 0.3 X10*3/uL (0.1-1.2); Monocytes Percent Auto 13.2 % (2-11); Neutrophils Absolute Auto 1.7 x10*3/uL (2.0-8.3); Neutrophils Percent Auto 71.6 % (45-73); Platelet Count 120 X10*3/uL (160-400); Red Blood Count 4.03 X10*6/uL (4.60-5.80); Red Cell Distribution Width 15.9 % (11.0-16.0); SCAN SMEAR FLAG 1
[2022-08-04 15:54] LABS: White Blood Count 2.4 X10*3/uL (4.8-10.8)
[2022-08-04 16:07] LABS: Alanine Aminotransferase 25 U/L (0-40); Alkaline Phosphatase 89 U/L (39-117); Anion Gap 14 (12-20); Aspartate Amino Transferase 37 U/L (5-37); Bilirubin Direct 0.5 mg/dL (0.0-0.5); Bilirubin Total 1.6 mg/dL (0.0-1.0); Blood Urea Nitrogen 17 mg/dL (9-16); Carbon Dioxide 26 mmol/L (22-29); Chloride 97 mmol/L (96-108); Creatinine Clr Calc Pharmacy 79.7; Estimated Glomerular Filt Rate > 60; Glucose Random 107 mg/dL (60-115); Lipase 8 U/L (8-78); Magnesium 1.8 mg/dL (1.6-2.6); Potassium 4.3 mmol/L (3.3-5.1); Sodium 133 mmol/L (135-145); Total Protein 6.8 g/dL (6.5-8.0)
[2022-08-04 16:18] LABS: SLIDE REVIEW VERIFIED
--- NOTE | 2022-08-04 18:28 | ECG_ITS ---
Test Reason : NAUSEA Blood Pressure : / mmHG Vent. Rate : 065 BPM Atrial Rate : 065 BPM P-R Int : 184 ms QRS Dur : 080 ms QT Int : 404 ms P-R-T Axes : 017 046 025 degrees QTc Int : 420 ms Normal sinus rhythm Normal ECG When compared with ECG of 07-JUN-2019 15:08, No significant change was found Referred By: Reina Lopez Electronically Signed By:Anthony Toth
[2022-08-04 18:50] LABS: Influenza A PCR POSITIVE (Negative); Influenza B PCR NEGATIVE (Negative); Resp Syncy Virus RNA Qual PCR NEGATIVE (Negative); SARS COV2 PCR INHOUSE NEGATIVE (Negative)
--- NOTE | 2022-08-04 19:06 | PC.NURSE ---
pt a&ox3, vss, power port accessed via sterile technique, pt tolerated well, labs drawn, medicated per provider order, ivf running. pt reporting 10/10 pain. no new orders at this time.
[2022-08-04 19:16] LABS: Lactic Acid 1.2 mmol/L (0.5-2.0)
[2022-08-04 19:23] VITALS: BP 114/51; PULSE 70; RESP 18; TEMP 36.7; O2SAT 95
--- NOTE | 2022-08-04 19:45 | PC.NURSE ---
spoke w , updated w plan of care.
--- NOTE | 2022-08-04 20:32 | PHA.MEDREC ---
Pharmacy Consult ? Medication Reconciliation Pharmacy has completed the medication reconciliation. Spoke to patient and patient's spouse to confirm meds.
--- NOTE | 2022-08-04 20:42 | P.HPHOSP_ITS ---
History of Present Illness Date of Service: 08/04/22 Attending physician on admission: Anthony Hill Chief Complaint: Intractable N/V, diarrhea Patient is a 62-year-old male with a past medical history significant for metastatic colon cancer on chemo with Dr. Mckee, ostomy, and recent new metastases to the lungs who presents today with 2-3 days of intractable nausea, vomiting, and diarrhea. Patient states that on Sunday he began to feel unwell, with fever, chills, body aches, and dry heaving. By morning he was coughing and could tolerate nothing by mouth; everything kept coming back up whether it be meds, food, or liquids. Patient states that his whole body started to hurt, which he surmises was due to not being able to tolerate his home morphine and oxycodone. Patient states that he felt dehydrated. Patient's last round of chemo was on 07/26, which patient notes was only a partial dose due to him being in the process of having dental work done. Patient also endorses some lightheadedness and dizziness especially with standing up quickly. Patient denies any chest pain/pressure, shortness of breath. Patient denies any hematochezia or hematemesis. In the ED the patient's labs were significant for low WBC of 2.4, mild hyponatremia of 133, in testing positive for influenza A. Chest x-ray was clear for acute cardiopulmonary findings. CT of abdomen and pelvis pending. Patient readmitted to the hospital for observation and treatment for dehydration and influenza A. Review of Systems Review of Systems: Nausea, vomiting, diarrhea x3 days Fever, chills, body aches x3 days Productive cough Denies chest pain/pressure, palpitations No shortness of breath Yes all other systems are reviewed and are negative [facility] Medical History Chronic respiratory failure ILD (interstitial lung disease) Pulmonary fibrosis Pulmonary nodule Tubular adenoma Family History Son Cystic fibrosis Brother Esophageal cancer Maternal Aunt Lung cancer Surgical History H/O knee surgery Social History Household Members: Spouse and Children Advance Directives Date on File: 10/25/21 service: No Current occupational status: employed Current occupation: [employer] Allergies Allergy/AdvReac Type Severity Reaction Status Date / Time prednisone [PREDNISONE] AdvReac Intermediate Psychosis Verified 07/26/22 10:39 Active Medications: Current Medications Acetaminophen (Acetaminophen 325 Mg Tablet) 650 mg PO Q6H PRN PRN Reason: Pain, Mild (Pain Scale 1-3) Sodium Chloride (Ns) 1,000 mls @ 125 mls/hr IVCONT .Q8H PINEDA Morphine Sulfate (Morphine Sulfate 4 Mg/Ml Cartridge) 4 mg IVPUSH Q4H PRN; Protocol PRN Reason: Pain, Severe (Pain Scale 7-10) Ondansetron HCl (Ondansetron Hcl 4 Mg/2 Ml Vial) 4 mg IVPUSH Q4H PRN PRN Reason: Nausea Oseltamivir Phosphate (Oseltamivir Phosphate 75 Mg Capsule) 75 mg PO Q12H PINEDA Stop: 08/09/22 08:31 Sodium Chloride (0.9 % Sodium Chloride Flush 3 Ml Syringe) 3 ml IVFLUSH QSHIFT [facility] Home Medications Medication Instructions Recorded Confirmed Last Taken Type loperamide 2 mg capsule 2 mg PO BID PRN Diarrhea 05/19/20 08/04/22 08/01/22 History acetaminophen 650 mg 650 mg PO Q6H PRN Pain 08/04/22 08/04/22 Unknown History tablet,extended release omeprazole 40 mg capsule,delayed 40 mg PO DAILY@0630 08/04/22 08/04/22 08/01/22 History release Physical Exam Vital Signs and Narrative: Vital Signs: Last Vital Signs Temp 98.1 F 08/04/22 19:23 Pulse 70 08/04/22 19:23 Resp 18 08/04/22 19:23 BP 114/51 L 08/04/22 19:23 Pulse Ox 95 08/04/22 19:23 O2 Del Method 08/04/22 19:23 BMI result Body Mass Index 20.9 Constitutional: Alert, in no acute distress. Mental Status: Oriented to person, place and time. Eyes: Pupils are equal, round, and reactive to light. Ear, Nose, and Throat: Oropharynx clear, dry mucous membranes. Ears and nose w ithout deformities. Trachea midline. Respiratory: Clear to auscultation bilaterally. No wheezing, rales, or rhonchi. Cardiovascular: S1, S2 regular. No murmurs, rubs, or gallops. Gastrointestinal: Abdomen soft, non-tender, non-distended. Normal bowel sounds. Ostomy in place, leaking a bit. Neurologic: Cranial nerves II-XI are grossly intact. NO focal neurological deficits. Moves all extremities spontaneously. Skin: No rashes of lesions. Musculoskeletal: No cyanosis or clubbing. Extremities: No edema. Psychiatric: Normal mood and affect. Results Labs CBC and Chem 7: 08/05/22 05:45 08/05/22 05:45 Labs: Laboratory Results - last 24 hr 08/04/22 08/04/22 08/04/22 15:39 15:39 18:07 MCV 93.8 MCH 31.0 MCHC 33.1 RDW 15.9 Plt Count 120 L MPV 11.9 Immature Gran % (Auto) 0.0 Neut % (Auto) 71.6 Lymph % (Auto) 14.8 L [place] % (Auto) 13.2 H Eos % (Auto) 0.4 Baso % (Auto) 0.0 Lymph # (Auto) 0.4 L [place] # (Auto) 0.3 Eos # (Auto) 0.0 Baso # (Auto) 0.0 Abs Immat Gran (auto) 0.00 Absolute Neuts (auto) 1.7 L Absolute Nucleated RBC 0.000 Nucleated RBC % (auto) 0.0 Smear Tech's Comments VERIFIED Anion Gap 14 Estim Creat Clear Calc 79.7 Estimated GFR > 60 Random Glucose 107 Lactic Acid Calcium 9.0 Magnesium 1.8 Total Bilirubin 1.6 H Direct Bilirubin 0.5 AST 37 ALT 25 Alkaline Phosphatase 89 Total Protein 6.8 Albumin 4.0 Lipase 8 Influenza Type A (PCR) POSITIVE A Influenza Type B (PCR) NEGATIVE RSV RNA Qual (PCR) NEGATIVE SARS-CoV-2 RNA (RT-PCR) NEGATIVE 08/04/22 18:50 MCV MCH MCHC RDW Plt Count MPV Immature Gran % (Auto) Neut % (Auto) Lymph % (Auto) [place] % (Auto) Eos % (Auto) Baso % (Auto) Lymph # (Auto) [place] # (Auto) Eos # (Auto) Baso # (Auto) Abs Immat Gran (auto) Absolute Neuts (auto) Absolute Nucleated RBC Nucleated RBC % (auto) Smear Tech's Comments Anion Gap Estim Creat Clear Calc Estimated GFR Random Glucose Lactic Acid 1.2 Calcium Magnesium Total Bilirubin Direct Bilirubin AST ALT Alkaline Phosphatase Total Protein Albumin Lipase Influenza Type A (PCR) Influenza Type B (PCR) RSV RNA Qual (PCR) SARS-CoV-2 RNA (RT-PCR) Imaging Radiologist's Impressions: Impressions Chest X-Ray 08/04/22 18:36 IMPRESSION: 1. CT compatible right-sided chest port terminates at the level of the cavoatrial junction. 2. No acute cardiopulmonary findings. 3. Pulmonary nodules and architectural distortion are best visualized on recent CT from 07/18/2022. Assessment and Plan (1) Dehydration: Status: Acute (2) Influenza A: Status: Acute (3) Colon cancer metastasized to liver: Status: Chronic Plan Patient is a 62-year-old male with a past medical history significant for metastatic colon cancer on chemo with Dr. Mckee, ostomy, and recent new metastases to the lungs who presents today with 2-3 days of intractable nausea, vomiting, and diarrhea. Was found to be positive for influenza A. Patient will be admitted to observation for treatment of dehydration and influenza A. # influenza A -- tamiflu 75mg po x5 days -- IVF, supportive care # dehydration -- IVF -- check labs, correct as necessary # nausea, vomiting, diarrhea -- etiology unclear, possibly from concomitant gastroenteritis secondary to immunocompromised state, less likely from influenza A -- CT of abdomen and pelvis pending, to r/o acute GI cause -- IVF -- IV antiemetics -- clear liquid diet, advance as tolerated -- follow lytes # body pain -- pt with metastatic colon cancer on chronic pain meds, unable to tolerate for 3 days -- morphine IV prn, switch to po home meds as tolerated # metastatic colon cancer -- under the care of Dr. Mckee Full code Attending: Dr. Hill DVT Prophylaxis: pt is ambulatory Patient is admitted to observation. If patient's lytes are WNL and he is capable of tolerating solids, will likely be discharged tomorrow. Time Spent With Patient Time: Total time managing care of this patient today ____ minutes. Quality Stroke Does the patient have a stroke diagnosis?: No VTE Prior VTE?: No VTE Risk Level:: Medical - low VTE Device Contraindication: Treatment Not Indicated VTE Drug Contraindication: Treatment Not Indicated
--- NOTE | 2022-08-04 21:36 | PC.NURSE ---
pt reporting increased nausea, provider contacted, PO medications held until nausea resolves. NS running at 125ml/hr.
--- NOTE | 2022-08-04 22:06 | PC.NURSE ---
pt medicated for nausea, po meds held.
--- NOTE | 2022-08-04 22:34 | PC.NURSE ---
pt medicated per provider order, denies any nausea at this time.
[2022-08-05] VITALS (7 sets, daily range): BP systolic 95–128; BP diastolic 42–60; PULSE 61–70; RESP 16–18; TEMP 36.9–37.8; O2SAT 92–95
--- NOTE | 2022-08-05 01:32 | PC.NURSE ---
pt reports increased pain, per PCT AJ. This RN assessed pts pain to be 8/10 in the back. Morphine administered per OCT PRNS. Tylenol also administered per OCT for increased temperature at this time
--- NOTE | 2022-08-05 03:13 | PC.NURSE ---
Pt sleeping respirations regular.
--- NOTE | 2022-08-05 06:14 | PC.NURSE ---
Pt reprots pain PRN meds given. No other needs expressed.
[2022-08-05 06:27] LABS: Hematocrit 30.6 % (42.0-52.0); Mean Corpuscular HGB Conc 32.7 g/dl (31.0-36.0); Mean Corpuscular Hemoglobin 30.8 pg (27.0-33.0); Mean Corpuscular Volume 94.2 fL (80.0-98.0); Red Blood Count 3.25 X10*6/uL (4.60-5.80); Red Cell Distribution Width 15.6 % (11.0-16.0)
[2022-08-05 06:30] LABS: Platelet Count 74 X10*3/uL (160-400); White Blood Count 1.8 X10*3/uL (4.8-10.8)
[2022-08-05 06:49] LABS: Anion Gap 11 (12-20); Blood Urea Nitrogen 16 mg/dL (9-16); Carbon Dioxide 25 mmol/L (22-29); Chloride 100 mmol/L (96-108); Creatinine Clr Calc Pharmacy 95.7; Estimated Glomerular Filt Rate > 60; Glucose Random 84 mg/dL (60-115); Potassium 3.6 mmol/L (3.3-5.1); Sodium 132 mmol/L (135-145)
--- NOTE | 2022-08-05 08:57 | PC.NURSE ---
pt arrives to overflow. pharmacy called for pt meds. aox3, vss, aware of plan of care. denied having any questions.
--- NOTE | 2022-08-05 11:37 | PC.NURSE ---
pt ate lunch. able to keep it down. md aware, plan for dc home.
--- NOTE | 2022-08-05 11:42 | PM.DS ---
DS: Providers Provider Date of Service: 08/05/22 Date of admission: 08/04/22 20:17 Primary care physician: Jono Headley MD DS: Diagnosis Discharge Diagnosis (1) Dehydration: Status: Acute (2) Influenza A: Status: Acute (3) Colon cancer metastasized to liver: Status: Chronic DS: Summary Hospital Course Hospital Course: admission note HPI Patient is a 62-year-old male with a past medical history significant for metastatic colon cancer on chemo with Dr. Mckee, ostomy, and recent new metastases to the lungs? who presents today with 2-3 days of intractable nausea, vomiting, and diarrhea.? Patient states that on Sunday he began to feel unwell, with fever, chills, body aches, and dry heaving.? By morning he was coughing and could tolerate nothing by mouth; everything kept coming back up whether it be meds, food, or liquids.? Patient states that his whole body started to hurt, which he surmises was due to not being able to tolerate his home morphine and oxycodone.? Patient states that he felt dehydrated.? Patient's last round of chemo was on 07/26, which patient notes was only a partial dose due to him being in the process of having dental work done.? Patient also endorses some lightheadedness and dizziness especially with standing up quickly.? Patient denies any chest pain/pressure, shortness of breath.? Patient denies any hematochezia or hematemesis.? In the ED the patient's labs were significant for low WBC of 2.4, mild hyponatremia of 133, in testing positive for influenza A.? Chest x-ray was clear for acute cardiopulmonary findings.? CT of abdomen and pelvis pending.? Patient readmitted to the hospital for observation and treatment for dehydration and influenza A. Hospital course The patient was admitted to the hospital for evaluation of nausea and vomiting associated with evidence of dehydration. Tested positive for influenza A. Treated with IV fluid and Tamiflu with good response over the course of hospital stay as he was able to tolerate diet well as it was advanced to regular. Denies any respiratory symptoms and was able to ambulate with no reported dizziness or instability. Asked to discontinue Augmentin at time of discharge. Continue Tamiflu as prescribed Advance your diet slowly at home Increase fluid intake Discontinue Augmentin Time Spent with Patient Time attestation: Total time managing care of this patient today ____ minutes. Discharge coordination time: Less than 30 minutes Quality: Safe Use of Opioids Does Pt have an Active Cancer Diagnosis on the Problem List?: No Quality: Stroke Does the patient have a stroke diagnosis?: No Physical Exam Vital Signs: Vital Signs: Last Vital Signs Temp 98.6 F 08/05/22 09:50 Pulse 66 08/05/22 09:50 Resp 16 08/05/22 09:50 BP 118/60 08/05/22 09:50 Pulse Ox 93 08/05/22 09:50 O2 Del Method 08/05/22 09:50 BMI result Body Mass Index 20.9 Const: Other: Constitutional : Awake, interactive, not in distress Neck : Normal inspection, Supple Cardiovascular : RRR, no JVP, no lower extremity edema Respiratory : good bilateral air entry, no crackles, wheezes or rhonchi Gastrointestinal: soft, lax, Normal bowel sounds, Non tender Skin : Warm, Dry Neurological : Alert & oriented x3, No focal deficit , CN 2-12 within normal DS: Data Data Completed and Pending Labs on day of discharge: Laboratory Results - last 24 hr 08/04/22 08/04/22 08/04/22 15:39 15:39 18:07 WBC 2.4 L RBC 4.03 L Hgb 12.5 L Hct 37.8 L MCV 93.8 MCH 31.0 MCHC 33.1 RDW 15.9 Plt Count 120 L MPV 11.9 Immature Gran % (Auto) 0.0 Neut % (Auto) 71.6 Lymph % (Auto) 14.8 L [place] % (Auto) 13.2 H Eos % (Auto) 0.4 Baso % (Auto) 0.0 Lymph # (Auto) 0.4 L [place] # (Auto) 0.3 Eos # (Auto) 0.0 Baso # (Auto) 0.0 Abs Immat Gran (auto) 0.00 Absolute Neuts (auto) 1.7 L Absolute Nucleated RBC 0.000 Nucleated RBC % (auto) 0.0 Smear Tech's Comments VERIFIED Smear Path Review Cancelled Sodium 133 L Potassium 4.3 Chloride 97 Carbon Dioxide 26 Anion Gap 14 BUN 17 H Creatinine 0.90 Estim Creat Clear Calc 79.7 Estimated GFR > 60 Random Glucose 107 Lactic Acid Calcium 9.0 Magnesium 1.8 Total Bilirubin 1.6 H Direct Bilirubin 0.5 AST 37 ALT 25 Alkaline Phosphatase 89 Total Protein 6.8 Albumin 4.0 Lipase 8 Influenza Type A (PCR) POSITIVE A Influenza Type B (PCR) NEGATIVE RSV RNA Qual (PCR) NEGATIVE SARS-CoV-2 RNA (RT-PCR) NEGATIVE 08/04/22 08/05/22 08/05/22 18:50 05:45 05:45 WBC 1.8 L RBC 3.25 L Hgb 10.0 L Hct 30.6 L MCV 94.2 MCH 30.8 MCHC 32.7 RDW 15.6 Plt Count 74 L D MPV 12.0 Immature Gran % (Auto) Neut % (Auto) Lymph % (Auto) [place] % (Auto) Eos % (Auto) Baso % (Auto) Lymph # (Auto) [place] # (Auto) Eos # (Auto) Baso # (Auto) Abs Immat Gran (auto) Absolute Neuts (auto) Absolute Nucleated RBC 0.000 Nucleated RBC % (auto) 0.0 Smear Tech's Comments Smear Path Review Sodium 132 L Potassium 3.6 Chloride 100 Carbon Dioxide 25 Anion Gap 11 L BUN 16 Creatinine 0.75 Estim Creat Clear Calc 95.7 Estimated GFR > 60 Random Glucose 84 Lactic Acid 1.2 Calcium 8.0 L D Magnesium Total Bilirubin Direct Bilirubin AST ALT Alkaline Phosphatase Total Protein Albumin Lipase Influenza Type A (PCR) Influenza Type B (PCR) RSV RNA Qual (PCR) SARS-CoV-2 RNA (RT-PCR) Imaging Chest x-ray: Radiologist's impression: ITS Impressions Chest X-Ray 08/04/22 18:36 IMPRESSION: 1. CT compatible right-sided chest port terminates at the level of the cavoatrial junction. 2. No acute cardiopulmonary findings. 3. Pulmonary nodules and architectural distortion are best visualized on recent CT from 07/18/2022. Abdomen/Pelvis CT 08/04/22 20:02 IMPRESSION: Multiple hepatic lesions without significant change from July 18, 2022. No evidence of obstructive uropathy. No evidence of bowel ileus or obstruction. Fleischner guidelines were followed. Discharge Plan Discharge Patient Disposition: Home, Self-Care Discharge Diagnosis: influenza A Dehydration Referrals: Po,Jono Kaur MD [Primary Care Provider] - 1 Week Discharge Medications: New oseltamivir [Tamiflu] 75 mg Capsule 75 mg PO Q12H Qty: 8 0RF Continued albuterol sulfate [ProAir HFA] 90 mcg/actuation HFA aerosol inhaler 2 puff inhalation Q6H PRN (Reason: shortness of breath or wheezing) 30 Days 11RF loperamide 2 mg Capsule 2 mg PO BID PRN (Reason: Diarrhea) (DME) Natura Drainable Pouch 1 1/2 (12 ) Misc Qty: 10 6RF Rx Instructions: As Directed ferrous sulfate [iron] 325 mg (65 mg iron) Tablet 325 mg PO BID Qty: 60 2RF ondansetron HCl 8 mg tablet 8 mg PO Q6-8H PRN (Reason: Nausea And Vomiting) Qty: 60 0RF cholestyramine (with sugar) [Questran] 4 gram powder in packet 1 ea PO BID Qty: 60 1RF oxycodone 5 mg Tablet 5 mg PO Q8H PRN (Reason: Pain) Qty: 60 0RF Rx Instructions: Partial Fill upon patient request. morphine [MS Contin] 30 mg tablet extended release 30 mg PO BID Qty: 60 0RF omeprazole 40 mg capsule,delayed release(DR/EC) 40 mg PO DAILY@0630 acetaminophen 650 mg tablet extended release 650 mg PO Q6H PRN (Reason: Pain) Discontinued amoxicillin-pot clavulanate [Augmentin] 500-125 mg Tablet 1 tab PO Q12H Qty: 20 1RF Discharge Orders: Discharge Order (Routine); Ordered 08/05/22 Ordered By: Pema Steele Diet: Advance to usual diet Activity on Discharge: As tolerated Stand Alone Forms: Patient Portal Discharge page Care Plan Goals: Read below Health Concerns: Read below Plan of Treatment: Read below Assessment: you were admitted to the hospital for evaluation of increased weakness, nausea and vomiting. Found to have influenza a infection treated with Tamiflu and IV fluid with good response over the course of hospital stay as you were able to tolerate diet well. Continue Tamiflu as prescribed Advance your diet slowly at home Increase fluid intake Discontinue Augmentin
== END 2022-08-05 12:45 | disposition home or self-care (01) ==
LOC: HO.ED 19:42 → HO.EDOVER 21:02
PROVIDERS: Nurse Practitioner Family; Physician Assistant; Admitting Provider Student in an Organized Health Care Education/Training Program; Emergency Provider Emergency Medicine; PCP Internal Medicine; Visit Provider Student in an Organized Health Care Education/Training Program
DX: J10.1 Influenza due to other identified influenza virus with other respiratory manifestations (principal); E86.0 Dehydration; C18.9 Malignant neoplasm of colon, unspecified; C78.7 Secondary malignant neoplasm of liver and intrahepatic bile duct; C78.00 Secondary malignant neoplasm of unspecified lung; Z20.822 Contact with and (suspected) exposure to COVID-19; J96.10 Chronic respiratory failure, unspecified whether with hypoxia or hypercapnia; G89.4 Chronic pain syndrome; Z93.3 Colostomy status; Z79.891 Long term (current) use of opiate analgesic; Z92.21 Personal history of antineoplastic chemotherapy
CPT/HCPCS: 0241U; 36415; 71045; 74176; 80048; 80076; 83605; 83690; 83735; 85025; 85027; 87040; 93005; 96361; 96374; 96375; 96376; 99218; 99285; J1170; J1642; J2270; J2405

== ENCOUNTER 2023-03-14 13:44 | Outpatient (REF) | payer MEDICARE, MEDICAID, SELFPAY ==
--- NOTE | ~2023-03-14 | CT_ITS ---
EXAMINATION: CT CHEST, ABDOMEN AND PELVIS WITH CONTRAST CLINICAL INFORMATION: Patient with history of colon cancer. Response to treatment. COMPARISON: CT scan of the abdomen dated 08/04/2022. CT scan of the chest, abdomen and pelvis dated 07/18/2022. TECHNIQUE: Multidetector CT helical images of the chest, abdomen and pelvis were performed following the administration of oral contrast and 85 mL of intravenous Omnipaque 350. The data set was reformatted in the coronal and sagittal planes and reviewed on an independent workstation. This CT examination was performed using dose optimization techniques as appropriate, variously including the following: *Automated exposure control *Adjustment of mA and/or kV according to patient size (this includes techniques or standardized protocols for targeted exams where dose is matched to indication/reason for exam; i.e. extremities or head) *Use of iterative reconstruction technique DLP: 357 mGy-cm. FINDINGS: CHEST: LUNGS: Moderate centrilobular and mild paraseptal emphysema. Prominent subpleural reticulation and interlobular septal thickening is again seen diffusely involving all lobes without specific zonal predominance. There are superimposed regions of small honeycomb cyst formation seen anteriorly in the right upper lobe and lingula and and in both lower lobes and to a lesser extent in the anterior right middle lobe, consistent with peripheral fibrosis. There is associated mild traction bronchiolectasis in these regions of fibrosis. This background of pulmonary disease limits the sensitivity of the exam. There are innumerable bilateral scattered irregular and variably sized pulmonary nodular densities seen, similar to the previous exam. Some of the dominant nodules/masses seen include the following as seen on series 7: -Posterior left upper lobe, based on the left major fissure and the left lateral pleural surface, image 181 through 204, irregular lobulated mass, measuring approximately 1.7 cm in diameter as compared to 1.6 cm (07/18/2022). There is as noted previously, associated focal pleural thickening and fissural tenting. Surrounding spiculations and subtle regions of patchy groundglass opacity noted. There is now also some internal cavitation noted along the inferior margin of this mass. -Posterior pleural-based left lower lobe, image 193, measuring 1.5 x 0.8 cm as compared to 1.3 x 0.7 cm (07/18/2022). -Inferolateral right upper lobe, image 194 pleural-based 0.8 x 0.4 cm nodule, new from prior exam. -Posterior lateral right lower lobe, image 235, peripheral 0.9 x 0.6 cm nodule, previously measuring 0.8 x 0.4 cm. No effusion or pneumothorax is seen. Central airways are patent. LYMPHOVASCULAR STRUCTURES: Aortic and heart size are normal. Four-vessel arch again seen. No pericardial effusion is seen. Small volume of fluid is seen in the inferior pericardium recess in the subcarinal region. Right IJ Port-A-Cath is in place with tip in the distal SVC. Mild to moderate coronary artery calcifications are noted. No significant mediastinal, hilar or axillary adenopathy is seen. THYROID GLAND: There is a 0.3 cm nodule in the posterior left lobe of the thyroid gland (series 3, image 358) BONES: Diffuse vertebral spondylosis seen in the mid and lower thoracic spine. No suspicious focal finding. ABDOMEN AND PELVIS: LIVER, GALLBLADDER, BILIARY TREE: Liver normal size and diffusely lower in attenuation compared to the spleen, consistent with hepatic steatosis. Again visualized are several variably sized hepatic masses with multiple punctate and amorphous calcific densities scattered in the right and left lobes of the liver, similar to the recent prior exam from 08/04/2022 and similar to slightly smaller compared to older exam dated 12/08/2020. Findings most likely reflect treated metastases. In hepatic segment 8 of the liver, a irregular hypoenhancing mass is seen, measuring approximately 2.5 x 3 cm (series 3, image 11), poorly appreciated on most recent prior noncontrast enhanced CT of the abdomen from 08/04/2022 and more prominent compared to 2 x 2.8 cm (07/18/2022). There are some eccentric regions of punctate calcifications seen within this ill-defined hypoenhancing mass. Finding is suspicious for reactivation of disease within a previously partially treated liver metastasis. No intra-or extrahepatic ductal dilatation. Hepatic and portal veins patent. The gallbladder is completely decompressed and not adequately assessed, but grossly unremarkable. PANCREAS: Mild diffuse pancreatic parenchymal atrophy noted. No focal pancreatic mass, ductal dilatation or peripancreatic fat stranding or edema. SPLEEN: Enlarged, measuring 13 cm longitudinally. Spleen otherwise normal in appearance. Splenic vein patent. ADRENAL GLANDS AND KIDNEYS: Adrenal glands normal. Kidneys bilaterally symmetric in size and function. No focal mass, hydronephrosis, nephrolithiasis or perinephric stranding. URETERS AND BLADDER: Ureters decompressed and within normal limits. Bladder partially distended with diffuse mild bladder wall thickening, likely related to bladder wall hypertrophy from chronic outlet obstruction.. PELVIC VISCERA: Prostate gland is enlarged and heterogeneous. Seminal vesicles are symmetric. BOWEL LOOPS: Moderate sigmoid colonic diverticulosis with no evidence of acute diverticulitis. Mild descending colonic diverticulosis. Appendix in right lower quadrant normal. There is a left lower quadrant ileostomy again noted. Small bowel loops are decompressed. Trace mesenteric edema is noted. ABDOMINAL WALL: Unremarkable. LYMPHOVASCULAR STRUCTURES: Abdominal aorta normal in caliber with dense atherosclerotic calcification seen. No periaortic collections.. No periaortic collections. There are multiple small perigastric and perisplenic varices seen and there is recanalization of the umbilical vein. Findings are suggestive of portal venous hypertension. No abdominal or pelvic adenopathy or free fluid collection. BONES: There is severe degenerative disc disease at the lumbosacral junction. Mild upper lumbar and moderate lower thoracic vertebral spondylosis seen. No suspicious bone. CT/CT abdomen pelvis w IV con IMPRESSION: CT scan of the chest: 1. Multiple bilateral pulmonary nodules are seen, similar to the recent prior exam. Some of the dominant nodules/masses appear slightly larger compared to the most recent prior exam and there is now some internal cavitation noted along the inferior margin of the dominant mass in the left upper lobe. 2. No adenopathy in the chest. 3. Moderate emphysema. CT scan of the abdomen and pelvis: 1. There is an irregular hypoenhancing mass in hepatic segment 8 of the liver, increased in size compared to 08/04/2022. Findings [address] suspicion for reactivation of disease within a previously partially treated liver metastasis. Other treated metastases are similar to slightly smaller compared to remote older studies. 2. No adenopathy in the abdomen or pelvis. 3. Hepatic steatosis with findings of portal venous hypertension, including upper abdominal varices, splenomegaly.. 4. Moderate sigmoid colonic diverticulosis. 5. Enlarged heterogeneous prostate gland. 6. Dense atherosclerotic vascular disease, including coronary arteries. 7. Tiny 0.3 cm nodule in the left lobe of the thyroid gland.
[2023-03-14] MEDS: iohexoL 350 MG/ML 100 ML INFUS..BTL IV (14:15)
== END 2023-03-14 13:45 | disposition home or self-care (01) ==
LOC: HO.CT 13:44
PROVIDERS: PCP Internal Medicine; Visit Provider Internal Medicine
DX: C18.9 Malignant neoplasm of colon, unspecified (principal); C78.7 Secondary malignant neoplasm of liver and intrahepatic bile duct
CPT/HCPCS: 71260; 74177; Q9967

== ENCOUNTER 2023-07-14 02:15 | Emergency (ER) | payer MEDICARE, OTHER, SELFPAY ==
--- NOTE | ~2023-07-14 | CT_ITS ---
EXAMINATION: CT HEAD WITHOUT CONTRAST CLINICAL INFORMATION: Severe headache, history of metastatic cancer COMPARISON: None available. TECHNIQUE: Contiguous axial imaging was performed from the skull base to vertex without intravenous administration of contrast. This CT examination was performed using dose optimization techniques as appropriate, variously including the following: *Automated exposure control *Adjustment of mA and/or kV according to patient size (this includes techniques or standardized protocols for targeted exams where dose is matched to indication/reason for exam; i.e. extremities or head) *Use of iterative reconstruction technique DLP: 664 mGy-cm FINDINGS: There is no evidence of acute intracranial hemorrhage or territorial infarction. No abnormal mass-effect or midline shift is seen. [place] to white matter differentiation is well preserved. No extra-axial fluid collections are identified. The ventricles are normal in size. There is no abnormal attenuation within the brain parenchyma. The osseous structures and soft tissues are normal. Mild mucosal thickening of the ethmoid air cells. Mild aerosolization of the right maxillary sinus. Age-indeterminate nasal bone fracture, favored to be chronic in the absence of surrounding soft tissue swelling. CT/CT head/brain wo IV con IMPRESSION: 1. No acute intracranial pathology. If clinically warranted, MRI without and with contrast would be a more sensitive examination for detecting intracranial masses. 2. Age-indeterminate nasal bone fracture, favored to be chronic in the absence of surrounding soft tissue swelling.
--- NOTE | ~2023-07-14 | XR_ITS ---
EXAMINATION: XR CHEST CLINICAL INFORMATION: Shortness of breath COMPARISON: 03/14/2023 TECHNIQUE: Frontal view of the chest was obtained. FINDINGS: Right IJ port catheter tip lies in the region of the cavoatrial junction. Lung volumes are symmetric. Mildly coarsened appearance of the interstitium favors a component of underlying chronic lung disease. There is suggestion of mild superimposed patchy opacity in the mid to lower left lung. No evidence of pneumothorax or significant pleural effusion. The cardiomediastinal contour is unremarkable. No acute osseous findings are seen. XR/XR chest 1V IMPRESSION: Suggestion of mild patchy opacity in the mid to lower left lung, which could reflect developing consolidation in the proper clinical setting.
[2023-07-14 02:20] VITALS: BP 118/61; PULSE 81; RESP 22; TEMP 37.5; O2SAT 94
--- NOTE | 2023-07-14 02:53 | ED.SOB ---
HPI - SOB/Dyspnea General Chief Complaint: Dyspnea Stated Complaint: Diff breathing Time Seen by Provider: 07/14/23 02:38 Source: patient Mode of arrival: wheelchair Limitations: no limitations History of Present Illness HPI Narrative: 63-year-old gentleman, with metastatic colon carcinoma, with liver and lung metastases on chemotherapy status post ileostomy comes in for body aches headache chills shortness of breath saturating 94% room air COVID was done which was negative no fever Related Data Home Medications Medication Instructions Recorded Confirmed loperamide 2 mg capsule 2 mg PO BID PRN Diarrhea 05/19/20 07/09/23 acetaminophen 650 mg 650 mg PO Q6H PRN Pain 08/04/22 07/09/23 tablet,extended release omeprazole 40 mg capsule,delayed 40 mg PO DAILY@0630 08/04/22 07/09/23 release Previous Rx's Medication Instructions Recorded albuterol sulfate 90 mcg/actuation 2 puff inhalation Q6H PRN 11/08/20 aerosol inhaler (ProAir HFA) shortness of breath or wheezing 30 days colostomy bag, non-sterile 1 / #10 ea 03/29/21 (12 ) (Natura Drainable Pouch) dexamethasone 4 mg tablet 4 mg PO BID #60 tabs 08/15/22 dietary supplement (Scandishake 1 packet PO TID #90 ea 08/16/22 packet) food supplemt, lactose-reduced See Rx Instructions .Route 08/21/22 0.04 gram-1 kcal/mL oral liquid .COMPLEX #100 mL (Boost) ferrous sulfate 325 mg (65 mg 325 mg PO BID #60 tabs 01/20/23 iron) tablet (iron) cholestyramine (with sugar) 4 gram 1 ea PO BID #60 ea 04/23/23 powder for susp in a packet (Questran) morphine 30 mg tablet,extended 30 mg PO BID #60 tabs 06/22/23 release (MS Contin) ondansetron HCl 8 mg tablet 8 mg PO Q6-8H PRN Nausea And 06/22/23 Vomiting #60 tabs oxycodone 5 mg tablet 5 mg PO Q8H PRN Pain #60 tabs 06/22/23 benzonatate 200 mg capsule 200 mg PO TID PRN cough #30 caps 07/14/23 dexamethasone 4 mg tablet 4 mg PO DAILY #5 tabs 07/14/23 Allergies Allergy/AdvReac Type Severity Reaction Status Date / Time prednisone [PREDNISONE] AdvReac Intermediate Psychosis Verified 03/05/23 08:51 Review of Systems Review of Systems: Yes all other systems are reviewed and are negative [facility] Past Medical History Medical History (Updated 07/14/23 @ 07:33 by Andre Lyons MD) Pulmonary nodule Colon cancer metastasized to liver Pulmonary fibrosis ILD (interstitial lung disease) Chronic respiratory failure Tubular adenoma Colon cancer metastasized to liver Surgical History H/O knee surgery Family History Family History Son Cystic fibrosis Brother Esophageal cancer Maternal Aunt Lung cancer Social History Social History Household Members: Spouse and Children Smoked in Last 30 Days: No Substance Use Type: Marijuana Substance Use Frequency: Occasionally Any prior treatment program specific to substance use: No Advance Directives: Yes Advance Directives on File: Yes Advance Directives Date on File: 12/12/22 service: No Current occupational status: employed Current occupation: [employer] Physical Exam Vital Signs: Vital Signs: Last Vital Signs Temp 99.5 F 07/14/23 02:20 Pulse 81 07/14/23 07:22 Resp 19 07/14/23 07:22 BP 133/76 07/14/23 07:22 Pulse Ox 98 07/14/23 07:22 O2 Del Method Nasal Cannula 07/14/23 07:22 O2 Flow Rate 2 07/14/23 07:22 BMI result Body Mass Index 20.0 Appearance: Alert. Oriented X3. No acute distress. Eyes: PERRLA, No Nystagmus ENT: Pharynx normal. Oral Mucosa moist Neck: Normal inspection. Neck supple. CVS: Normal heart rate and rhythm. Pulses normal. Respiratory: No respiratory distress. Equal air entry bilateral, bilateral few rales with wheezing Abdomen: Soft and nontender. Bowel sounds are present, no mass palpable, no CVA tenderness Skin: Skin warm and dry. Normal skin color. Normal skin turgor. Extremities: No lower extremity edema. No calf tenderness Neuro: Oriented X 3. No motor deficit. No sensory deficit.No cerebellar signs , cranial nerves II-XII intact Medications Administered Discontinued Medications Generic Name Dose Route Start Last Admin Trade Name Eusebio PRN Reason Stop Dose Admin Hydromorphone HCl 2 mg 07/14/23 04:14 07/14/23 04:18 Hydromorphone Hcl 2 Mg/Ml Vial IVPUSH 07/14/23 04:15 2 mg ONCE ONE Administration Protocol Hydromorphone HCl 2 mg 07/14/23 06:43 07/14/23 07:06 Hydromorphone Hcl 2 Mg/Ml Vial IVPUSH 07/14/23 06:44 2 mg ONCE ONE Administration Protocol Sodium Chloride 1,000 mls @ 999 mls/hr 07/14/23 03:01 07/14/23 03:27 Ns IV 07/14/23 04:01 999 mls/hr .Q1H1M ONE Administration Morphine Sulfate 4 mg 07/14/23 03:01 07/14/23 03:16 Morphine Sulfate 4 Mg/Ml Cartridge IVPUSH 07/14/23 03:02 4 mg ONCE ONE Administration Protocol Ondansetron HCl 4 mg 07/14/23 03:01 07/14/23 03:16 Ondansetron Hcl 4 Mg/2 Ml Vial IVPUSH 07/14/23 03:02 4 mg ONCE ONE Administration Medical Decision Making Medical Decision Making [facility] Narrative: Patient workup showed RSV with bronchitis wbc normal patient improved after IV hydration feeling much better at this time will discharge patient home on steroid advised to continue use his nebulizing treatment. Patient is saturating 94% at room air Differential Diagnosis Differential Diagnoses: The differential diagnosis associated with the presentation includes Pneumonia/CHF/bronchitis Admission/Observation Consideration of admission/observation: Escalation of care including admission/observation considered Lab Data [facility] Lab Attestation statement: I reviewed the patient's lab results. 07/14/23 03:24 07/14/23 03:55 Labs: Lab Results 07/14/23 07/14/23 07/14/23 Range/Units 03:24 03:25 03:55 WBC 4.5 L (4.8-10.8) X10*3/uL RBC 4.11 L (4.60-5.80) X10*6/uL Hgb 12.7 L (14.0-18.0) g/dl Hct 37.8 L (42.0-52.0) % MCV 92.0 (80.0-98.0) fL MCH 30.9 (27.0-33.0) pg MCHC 33.6 (31.0-36.0) g/dl RDW 17.7 H (11.0-16.0) % Plt Count 66 L (160-400) X10*3/uL MPV Not Reportable Absolute Nucleated RBC 0.000 (0.0-0.012) X10*3/uL Nucleated RBC % (auto) 0.0 (0.0-0.2) /100WBC Sodium 134 L (135-145) mmol/L Potassium 3.7 (3.3-5.1) mmol/L Chloride 103 (96-108) mmol/L Carbon Dioxide 23 (22-29) mmol/L Anion Gap 12 (12-20) BUN 17 H (9-16) mg/dL Creatinine 0.71 (0.5-1.4) mg/dL Estim Creat Clear Calc 95.3 Estimated GFR > 60 Random Glucose 115 (60-115) mg/dL Calcium 8.2 L (8.4-10.2) mg/dL Total Bilirubin 2.9 H (0.0-1.0) mg/dL AST 42 H (5-37) U/L ALT 32 (0-40) U/L Alkaline Phosphatase 74 (39-117) U/L Total Protein 5.4 L (6.5-8.0) g/dL Albumin 3.0 L (3.5-5.0) g/dL Influenza Type A (PCR) NEGATIVE (Negative) Influenza Type B (PCR) NEGATIVE (Negative) RSV RNA Qual (PCR) POSITIVE A (Negative) SARS-CoV-2 RNA (RT-PCR) NEGATIVE (Negative) Independent Interpretation I performed an independent interpretation of an: Plain X-Ray and CT Scan Radiology Impression Discussion of test interpretation with radiology: I have reviewed the radiologist's reading. Discharge Plan Discharge Clinical Impression: Chronic pain, Colon cancer metastasized to liver, Respiratory syncytial virus (RSV) bronchiolitis Patient Disposition: Home, Self-Care Instructions: Respiratory Syncytial Virus (ED), Chronic Pain (ED) Additional Instructions: Drink plenty of fluids Take pain medication as prescribed Humidified air Cough drops as prescribed Decadron 4 mg daily for 5 days Report to the ER if worsening of shortness of breath Prescriptions: New dexamethasone 4 mg tablet 4 mg PO DAILY Qty: 5 0RF benzonatate 200 mg capsule 200 mg PO TID PRN (Reason: cough) Qty: 30 0RF No Action albuterol sulfate [ProAir HFA] 90 mcg/actuation HFA aerosol inhaler 2 puff inhalation Q6H PRN (Reason: shortness of breath or wheezing) 30 Days 11RF loperamide 2 mg Capsule 2 mg PO BID PRN (Reason: Diarrhea) (DME) Natura Drainable Pouch 1 /2 (12 ) Misc Qty: 10 6RF Rx Instructions: As Directed dexamethasone 4 mg Tablet 4 mg PO BID Qty: 60 3RF Rx Instructions: Take 4 mg b.i.d. on day 2 and day 3 of chemotherapy every 2 weeks. Scandishake Packet 1 packet PO TID Qty: 90 1RF Boost 0.04 gram- 1 kcal/mL Liquid See Rx Instructions .ROUTE .COMPLEX Qty: 100 3RF Rx Instructions: as written ferrous sulfate [iron] 325 mg (65 mg iron) Tablet 325 mg PO BID Qty: 60 2RF cholestyramine (with sugar) [Questran] 4 gram powder in packet 1 ea PO BID Qty: 60 1RF morphine [MS Contin] 30 mg tablet extended release 30 mg PO BID Qty: 60 0RF oxycodone 5 mg Tablet 5 mg PO Q8H PRN (Reason: Pain) Qty: 60 0RF Rx Instructions: Partial Fill upon patient request. ondansetron HCl 8 mg tablet 8 mg PO Q6-8H PRN (Reason: Nausea And Vomiting) Qty: 60 0RF omeprazole 40 mg capsule,delayed release(DR/EC) 40 mg PO DAILY@0630 acetaminophen 650 mg tablet extended release 650 mg PO Q6H PRN (Reason: Pain)
[2023-07-14] MEDS: Morphine Sulfate 4 MG/ML CARTRIDGE IVPUSH (03:16)
[2023-07-14] MEDS: ondansetron HCL 4 MG/2 ML VIAL IVPUSH (03:16)
[2023-07-14] MEDS: 0.9 % Sodium Chloride 1,000 ML 999 ML IV (03:27)
[2023-07-14 03:29] LABS: Hematocrit 37.8 % (42.0-52.0); PLT ABN DIST 1; Red Cell Distribution Width 17.7 % (11.0-16.0)
[2023-07-14 03:31] LABS: Hemoglobin 12.7 g/dl (14.0-18.0); Mean Corpuscular HGB Conc 33.6 g/dl (31.0-36.0); Mean Corpuscular Hemoglobin 30.9 pg (27.0-33.0); Platelet Count 66 X10*3/uL (160-400); Red Blood Count 4.11 X10*6/uL (4.60-5.80); White Blood Count 4.5 X10*3/uL (4.8-10.8)
[2023-07-14 04:11] LABS: Alanine Aminotransferase 32 U/L (0-40); Alkaline Phosphatase 74 U/L (39-117); Anion Gap 12 (12-20); Aspartate Amino Transferase 42 U/L (5-37); Bilirubin Total 2.9 mg/dL (0.0-1.0); Blood Urea Nitrogen 17 mg/dL (9-16); Calcium 8.2 mg/dL (8.4-10.2); Carbon Dioxide 23 mmol/L (22-29); Chloride 103 mmol/L (96-108); Creatinine Clr Calc Pharmacy 95.3; Estimated Glomerular Filt Rate > 60; Glucose Random 115 mg/dL (60-115); Potassium 3.7 mmol/L (3.3-5.1); Sodium 134 mmol/L (135-145); Total Protein 5.4 g/dL (6.5-8.0)
[2023-07-14 04:12] LABS: Influenza A PCR NEGATIVE (Negative); Influenza B PCR NEGATIVE (Negative); Resp Syncy Virus RNA Qual PCR POSITIVE (Negative); SARS COV2 PCR INHOUSE NEGATIVE (Negative)
[2023-07-14] MEDS: HYDROmorphone HCl 2 MG/ML VIAL IVPUSH ×2 (04:18→07:06)
[2023-07-14 07:07] VITALS: BP 120/62; PULSE 60; RESP 19; O2SAT 94
[2023-07-14 07:22] VITALS: BP 133/76; PULSE 81; RESP 19; O2SAT 98
[2023-07-14] MEDS: Albuterol Sulfate 2.5 MG, Albuterol/Iprat 2.5/0.5MG 3 ML 3 ML INHALE (08:03)
[2023-07-14 08:05] VITALS: PULSE 56; RESP 16; O2SAT 98
[2023-07-14] MEDS: Benzonatate 100 MG CAPSULE 200 MG PO (09:18)
[2023-07-14] MEDS: dexAMETHasone sod phosphate 4 MG/ML VIAL IVPUSH (09:22)
[2023-07-14] MEDS: Heparin Sodium,Porcine Flush 500 UNIT/5 ML SYRINGE IVFLUSH (10:08)
--- NOTE | 2023-07-14 10:16 | PC.NURSE ---
port flushed with hep-lock and de-accessed.
== END 2023-07-14 10:18 | disposition home or self-care (01) ==
PROVIDERS: Emergency Provider Internal Medicine; PCP Internal Medicine
DX: J21.0 Acute bronchiolitis due to respiratory syncytial virus (principal); G89.29 Other chronic pain; C18.9 Malignant neoplasm of colon, unspecified; Z20.822 Contact with and (suspected) exposure to COVID-19; Z20.828 Contact with and (suspected) exposure to other viral communicable diseases; Z79.899 Other long term (current) drug therapy
CPT/HCPCS: 0241U; 70450; 71045; 80053; 85027; 94640; 96361; 96374; 96375; 96376; 99284; J1100; J1170; J1642; J2270; J2405

== ENCOUNTER 2023-07-31 10:40 | Inpatient (IN) | payer MEDICARE, OTHER, SELFPAY ==
[2023-07-31] VITALS (9 sets, daily range): BP systolic 118–142; BP diastolic 53–75; PULSE 61–86; RESP 12–20; TEMP 36.8–37; O2SAT 96–99; BMI 20.2
--- NOTE | ~2023-07-31 | XR_ITS ---
EXAMINATION: XR CHEST CLINICAL INFORMATION: Shortness of breath and cough COMPARISON: Chest radiograph 07/14/2023 TECHNIQUE: Frontal view of the chest was obtained. FINDINGS: The heart and pulmonary vessels appear normal. A right chest port is present with its tip in the SVC. At the time of the prior study some coarsened interstitial markings were present and a mid to lower left lung developing opacity was seen. At this time, opacities have progressed with patchy density seen in both lungs, left greater than right most marked in the retrocardiac region. No pleural effusions. Degenerative changes are present in the spine. XR/XR chest 1V IMPRESSION: Worsening of pulmonary opacities, left greater than right, as described above. Findings are suggestive of multifocal pneumonia.
--- NOTE | ~2023-07-31 | CT_ITS ---
EXAMINATION: CT CHEST WITHOUT CONTRAST CLINICAL INFORMATION: Abnormal chest x-ray. COMPARISON: None available. TECHNIQUE: Multidetector volumetric CT imaging of the chest was done. Axial MIP volume rendering provided. Sagittal and coronal reformatted images were obtained. This CT examination was performed using dose optimization techniques as appropriate, variously including the following: *Automated exposure control *Adjustment of mA and/or kV according to patient size (this includes techniques or standardized protocols for targeted exams where dose is matched to indication/reason for exam; i.e. extremities or head) *Use of iterative reconstruction technique DLP: 213 mGy-cm FINDINGS: SCRUB WHEEL OPERATOR: Well-inflated lungs. LUNGS: There is centrilobular emphysema with chronic interstitial lung changes in both lungs. There are large ill-defined masses within both lungs. The largest lobulated mass left upper lobe pleural-based measures 2.5 x 2.3 cm axial image 184/9. There are additional pleural-based masses measuring 2 cm in posterior segment left lower lobe axial image 189/9 which could represent consolidation/infiltrate. Small subpleural nodules or masses posterior segment right lower lobe axial image 168/9, image 209/9. MEDIASTINUM: The heart size and great vessels are normal caliber. There is coronary artery calcifications present. There is no pericardial effusion. Central trachea and bronchi are widely patent. Thyroid lobes are symmetrical and normal. There is a right central venous port with its tip in proximal to mid SVC. CORONARY ARTERY CALCIFICATION: There is mild coronary artery calcifications present. No pericardial effusion seen. PLEURA: There is no pleural effusion. No pleural mass or thickening. AXILLA: No lymphadenopathy. UPPER ABDOMEN: There is scattered calcified nodules in the liver, indeterminate. No radiographic gallstone seen. The spleen and adrenal glands unremarkable. OSSEOUS STRUCTURES: No aggressive lytic or sclerotic process seen. No compression fracture. There is mild ventral spondylosis throughout dorsal spine. CT/CT chest wo IV con IMPRESSION: Diffuse emphysema with chronic interstitial fibrosis. There are multiple bilateral subpleural masses and or consolidation. The left upper lobe subpleural mass lateral segment is very suspicious for underlying lesion or mass. All these larger nodules have increased in size from 8-22 CT exams and are suspicious. Recommend PET/CT exam. There is no pleural effusion or calcification. There are several calcified masses in the liver and small calcifications lobe which appears stable compared to last CT abdomen exam. Fleischner guidelines were followed.
--- NOTE | ~2023-07-31 | CT_ITS ---
EXAMINATION: CT ABDOMEN AND PELVIS WITHOUT CONTRAST CLINICAL INFORMATION: Abdominal pain. Acute kidney insufficiency. COMPARISON: Previous renal ultrasound from earlier the same day and CT of the abdomen and pelvis March 2023 TECHNIQUE: Multidetector volumetric imaging was performed from the superior aspect of the liver through the pubic symphysis. Sagittal and coronal reformatted images were obtained on the technologist's workstation. This CT examination was performed using dose optimization techniques as appropriate, variously including the following: *Automated exposure control *Adjustment of mA and/or kV according to patient size (this includes techniques or standardized protocols for targeted exams where dose is matched to indication/reason for exam; i.e. extremities or head) *Use of iterative reconstruction technique DLP: 340 mGy-cm FINDINGS: LUNG BASES: Emphysematous changes at the lung bases. There is interval increase in peripheral multifocal nodular opacities. Largest is in the posterior left lower lobe proximally 2 cm. Infectious, inflammatory and neoplastic processes should be considered. LIVER, GALLBLADDER, AND BILIARY TREE: Multiple liver lesions not appreciably changed from prior exam. Some lesions appear partially high attenuation and some completely high attenuation questionable for treated metastasis versus calcification. Upper normal-size gallbladder. No gallstones. No biliary duct dilatation. PANCREAS: Unremarkable. SPLEEN: Slightly enlarged measuring 13.7 cm in length. ADRENAL GLANDS: Unremarkable. KIDNEYS AND URETERS: The kidneys are normal in size, shape, and attenuation. No hydronephrosis, hydroureter, or calculi seen. Mild Perinephric stranding. 1 cm low-attenuation lesion in the left kidney probably representing a cyst. No imaging follow-up recommended. BLADDER: Unremarkable. GASTROINTESTINAL TRACT: Left lower quadrant ileostomy. Diverticulosis of the colon. No evidence of diverticulitis. Normal appendix. Normal stomach.. ABDOMINAL WALL: No significant hernia is appreciated. LYMPH NODES: Normal. VASCULAR: Atherosclerotic disease. No hernia PELVIC VISCERA: The prostate gland is enlarged. OSSEOUS STRUCTURES: Degenerative changes of the spine CT/CT abdomen pelvis wo IV con IMPRESSION: Stable exam from March 2023 Severe emphysematous changes at the lung bases. Interval increase in multifocal bilateral peripheral nodular opacities at the lung bases. Infectious, inflammatory and neoplastic process should be considered. Fleischner guidelines were followed.
--- NOTE | ~2023-07-31 | US_ITS ---
EXAMINATION: US RETROPERITONEAL LIMITED (RENAL ONLY) CLINICAL INFORMATION: New renal failure and hyperkalemia COMPARISON: CT scan chest abdomen and pelvis 03/14/2023 TECHNIQUE: Real-time ultrasound of both kidneys was performed. FINDINGS: RIGHT KIDNEY: 10.2 x 5.6 x 5.5 cm (SAG x AP x TRV). The kidney is normal in size, contour, and echogenicity. Renal cortical thickness is normal. No calculi. No hydronephrosis. 0.7 x 0.7 x 0.8 cm exophytic simple cyst is seen extending off the mid to lower pole of the right kidney. No imaging follow-up is recommended. LEFT KIDNEY: 10.6 x 6.7 x 5.4 cm (SAG x AP x TRV). The kidney is normal in size, contour, and echogenicity. Renal cortical thickness is normal. No calculi. No hydronephrosis. 1.0 x 1.1 x 0.7 cm simple cyst is seen in the lower pole of the left kidney. No imaging follow-up is recommended. US/US renal BI IMPRESSION: No significant finding within the kidneys.
--- NOTE | 2023-07-31 10:42 | ECG_ITS ---
Test Reason : ABNORMAL LAB Blood Pressure : / mmHG Vent. Rate : 065 BPM Atrial Rate : 065 BPM P-R Int : 220 ms QRS Dur : 096 ms QT Int : 394 ms P-R-T Axes : 051 039 046 degrees QTc Int : 409 ms Sinus rhythm with 1st degree A-V block Otherwise normal ECG When compared with ECG of 04-AUG-2022 18:35, OK interval has increased Nonspecific T wave abnormality no longer evident in Anterior leads Referred By: Mj Alejo Electronically Signed By:AAYUSH STRAUSS MD
--- NOTE | 2023-07-31 10:49 | ED.WEAKNESS ---
HPI - Weakness General Chief complaint: Recheck/Abnormal Lab/Rx Stated complaint: elevated potassium Time Seen by Provider: 07/31/23 10:42 Source: patient Mode of arrival: ambulatory Limitations: no limitations History of Present Illness HPI Narrative: Weeks of worsening nutrition and hydration with diarrhea from his stoma. He went to see Dr. Friend for weakness and was sent to the ED for hyperkalemia and dehydration. MD Complaint: generalized weakness Onset (ago): month(s) Duration: constant Related Data Home Medications Medication Instructions Recorded Confirmed loperamide 2 mg capsule 2 mg PO BID PRN Diarrhea 05/19/20 07/09/23 acetaminophen 650 mg 650 mg PO Q6H PRN Pain 08/04/22 07/09/23 tablet,extended release omeprazole 40 mg capsule,delayed 40 mg PO DAILY@0630 08/04/22 07/09/23 release Previous Rx's Medication Instructions Recorded albuterol sulfate 90 mcg/actuation 2 puff inhalation Q6H PRN 11/08/20 aerosol inhaler (ProAir HFA) shortness of breath or wheezing 30 days colostomy bag, non-sterile 1 / #10 ea 03/29/21 (12 ) (Natura Drainable Pouch) dexamethasone 4 mg tablet 4 mg PO BID #60 tabs 08/15/22 dietary supplement (Scandishake 1 packet PO TID #90 ea 08/16/22 packet) food supplemt, lactose-reduced See Rx Instructions .Route 08/21/22 0.04 gram-1 kcal/mL oral liquid .COMPLEX #100 mL (Boost) ferrous sulfate 325 mg (65 mg 325 mg PO BID #60 tabs 01/20/23 iron) tablet (iron) cholestyramine (with sugar) 4 gram 1 ea PO BID #60 ea 04/23/23 powder for susp in a packet (Questran) ondansetron HCl 8 mg tablet 8 mg PO Q6-8H PRN Nausea And 06/22/23 Vomiting #60 tabs benzonatate 200 mg capsule 200 mg PO TID PRN cough #30 caps 07/14/23 dexamethasone 4 mg tablet 4 mg PO DAILY #5 tabs 07/14/23 morphine 30 mg tablet,extended 30 mg PO BID #60 tabs 07/19/23 release (MS Contin) azithromycin 250 mg tablet 250 mg PO DAILY #7 tabs 07/23/23 oxycodone 5 mg tablet 5 mg PO Q8H PRN Pain #60 tabs 07/23/23 Allergies Allergy/AdvReac Type Severity Reaction Status Date / Time prednisone [PREDNISONE] AdvReac Intermediate Psychosis Verified 03/05/23 08:51 Review of Systems Review of Systems: Yes all other systems are reviewed and are negative Neurologic: Denies Sensory deficit (Neuro) [facility] Past Medical History Medical History Pulmonary nodule Colon cancer metastasized to liver Pulmonary fibrosis ILD (interstitial lung disease) Chronic respiratory failure Tubular adenoma Colon cancer metastasized to liver Surgical History H/O knee surgery Family History Family History Son Cystic fibrosis Brother Esophageal cancer Maternal Aunt Lung cancer Social History Social History Household Members: Spouse and Children Substance Use Type: Marijuana Advance Directives: Yes Advance Directives on File: Yes Advance Directives Date on File: 12/12/22 service: No Current occupational status: employed Current occupation: [employer] Physical Exam Vital Signs: Vital Signs: Last Vital Signs Temp 98.3 F 07/31/23 14:10 Pulse 70 07/31/23 14:10 Resp 16 07/31/23 14:10 BP 137/70 07/31/23 14:10 Pulse Ox 97 07/31/23 14:10 O2 Del Method Room Air 07/31/23 14:10 BMI result Body Mass Index 20.2 Const: Other: cachectic male looking older than stated age Orientation/consciousness: oriented to person and patient oriented x3 Limitations: no limitations HEENT: Head: Yes normal to inspection Ears: external ears normal General nose exam: Normal external nose present Mouth: Normal oral and palatal mucosa present and oropharynx normal Throat: Yes posterior oropharynx normal Eyes: General: appearance normal, both eyes and all related structures Neck: Other: supple Neck: Yes normal visual inspection Chest: Chest palpation & inspection: normal inspection of the chest Resp: Auscultation: clear to auscultation bilaterally Cardio: Jugular venous distension: no JVD Rate: regular rate Rhythm: regular rhythm Heart sounds: S1 normal heart sound present and S2 normal heart sound present GI: Other: scaphoid abdomen, stoma putting out watery stool Auscultation: normal bowel sounds : General: Yes no CVA tenderness Back/Spine/Pelvis: Back: no CVA tenderness Skin: General skin exam: no rashes or lesions noted Neuro: General: oriented to person and patient oriented x3 Cranial nerves: Yes CN's II-XII intact bilaterally Motor exam (neuro): 5/5 motor strength present throughout Sensory Exam: No Sensory deficit (Neuro) Extrem: General: Yes normal to inspection Psych: Appearance: grossly normal Course Reevaluation(s) Reevaluation #1: Patients potassium increased to 7.4, wrote for Ca, bicarb, d50, insulin, and lokelma will admit Time: 13:35 Reevaluation #2: I spent 40 minutes of critical care, with interventions, assessments, speaking to patient, consultants, and family. Time: 13:35 Reevaluation #3: potassium down to 6.9 will admit to tele Time: 16:12 Medications Administered Generic Name Dose Route Start Last Admin Trade Name Freq PRN Reason Stop Dose Admin Sodium Bicarbonate 50 meq/ 1,000 mls @ 150 mls/hr 07/31/23 14:30 07/31/23 14:11 Dextrose IV 150 mls/hr .Q6H40M PINEDA Administration Discontinued Medications Generic Name Dose Route Start Last Admin Trade Name Freq PRN Reason Stop Dose Admin Calcium Chloride 1 gm 07/31/23 13:22 07/31/23 13:38 Calcium Chloride 1 Gm/10 Ml Syringe IVPUSH 07/31/23 13:23 1 gm STAT STA Administration Dextrose 25 gm 07/31/23 13:22 07/31/23 13:45 Dextrose 50 % 25 Gm/50 Ml Syringe IVPUSH 07/31/23 13:23 25 gm ONCE ONE Administration Sodium Chloride 1,000 mls @ 500 mls/hr 07/31/23 11:15 07/31/23 14:00 Ns IVCONT 07/31/23 13:14 Infused .Q2H PINEDA Infusion Insulin Human Regular 10 unit 07/31/23 13:22 07/31/23 13:48 Insulin Regular, Human 100 Unit/Ml 3 Ml Vial IVPUSH 07/31/23 13:23 10 unit ONCE ONE Administration Sodium Bicarbonate 50 meq 07/31/23 13:22 07/31/23 13:41 Sodium Bicarbonate 8.4% 50 Meq/50 Ml Syringe IVPUSH 07/31/23 13:23 50 meq ONCE ONE Administration Sodium Zirconium Cyclosilicate 10 gm 07/31/23 13:22 07/31/23 13:50 Sodium Zirconium Cyclosilicate 10 Gm Powd.Pack PO 07/31/23 13:23 10 gm ONCE ONE Administration Medical Decision Making Differential Diagnosis Differential Diagnoses: The differential diagnosis associated with the presentation includes (hyperkalemia, dehydration, renal failure were all considered) Admission/Observation Consideration of admission/observation: Escalation of care including admission/observation considered (upon arrival patient was considered for admission) Consult Healthcare Provider Management of the patient was discussed with: Hospitalist and Dental Hygiene Administrative Assistant (ICU attending Dr. Spears) Lab Data MDM Lab Attestation statement: I reviewed the patient's lab results. (improving renal function despite worseing K+) 07/31/23 15:47 Labs: Lab Results 07/31/23 07/31/23 07/31/23 Range/Units 12:41 13:39 14:05 Sodium 129 L (135-145) mmol/L Potassium 7.4 H* (3.3-5.1) mmol/L Chloride 112 H (96-108) mmol/L Carbon Dioxide 14 L (22-29) mmol/L Anion Gap 10 L (12-20) BUN 52 H (9-16) mg/dL Creatinine 1.76 H (0.5-1.4) mg/dL Estim Creat Clear Calc 38.9 Estimated GFR 39 POC Glucose 87 208 H (60-115) mg/dL Random Glucose 94 (60-115) mg/dL Calcium 8.5 D (8.4-10.2) mg/dL 07/31/23 Range/Units 15:47 Sodium 132 L (135-145) mmol/L Potassium 6.9 H* (3.3-5.1) mmol/L Chloride 112 H (96-108) mmol/L Carbon Dioxide 17 L (22-29) mmol/L Anion Gap 10 L (12-20) BUN 48 H (9-16) mg/dL Creatinine 1.64 H (0.5-1.4) mg/dL Estim Creat Clear Calc 41.7 Estimated GFR 42 POC Glucose (60-115) mg/dL Random Glucose 59 L* (60-115) mg/dL Calcium 10.3 H D (8.4-10.2) mg/dL Independent Interpretation I performed an independent interpretation of an: EKG (sinus 65 slight peaked ts, #2 sinus 61, no change from prior eKG) Independent Historian Clinical information obtained from an independent historian. History obtained from or confirmed by: Other (Dr. Friend) External Record Review External record reviewed: Outpatient record Chronic Conditions Patient?s care impacted by: Cancer Discharge Plan Discharge Clinical Impression: Colon cancer metastasized to liver, Acute dehydration, Acute hyperkalemia Patient Disposition: Admitted As Inpatient
[2023-07-31] MEDS: 0.9 % Sodium Chloride 1,000 ML 500 ML IVCONT (12:00)
[2023-07-31 13:19] LABS: Anion Gap 10 (12-20); Blood Urea Nitrogen 52 mg/dL (9-16); Calcium 8.5 mg/dL (8.4-10.2); Carbon Dioxide 14 mmol/L (22-29); Chloride 112 mmol/L (96-108); Creatinine Clr Calc Pharmacy 38.9; Estimated Glomerular Filt Rate 39; Glucose Random 94 mg/dL (60-115); Potassium 7.4 mmol/L (3.3-5.1); Sodium 129 mmol/L (135-145)
--- NOTE | 2023-07-31 13:22 | ECG_ITS ---
Test Reason : HYPERKALEMIA Blood Pressure : / mmHG Vent. Rate : 061 BPM Atrial Rate : 061 BPM P-R Int : 218 ms QRS Dur : 096 ms QT Int : 412 ms P-R-T Axes : 031 011 037 degrees QTc Int : 414 ms Sinus rhythm with 1st degree A-V block Otherwise normal ECG When compared with ECG of 31-JUL-2023 11:10, No significant change was found Referred By: Mj Alejo Electronically Signed By:AAYUSH STRAUSS MD
[2023-07-31] MEDS: Calcium Chloride 1 GM/10 ML SYRINGE IVPUSH (13:38)
[2023-07-31] MEDS: Sodium Bicarbonate 8.4% 50 MEQ/50 ML SYRINGE IVPUSH (13:41)
[2023-07-31 13:42] LABS: Glucose, Whole Blood 87 mg/dL (60-115)
--- NOTE | 2023-07-31 13:43 | MHC.EDTECH ---
POC obtained : 87 RN arelis Gottlieb
[2023-07-31] MEDS: Dextrose 50 % 25 GM/50 ML SYRINGE IVPUSH ×3 (13:45→19:46)
[2023-07-31] MEDS: Insulin Regular, Human 100 UNIT/ML 3 ML VIAL 10 UNIT IVPUSH ×2 (13:48→18:22)
[2023-07-31] MEDS: Sodium Zirconium Cyclosilicate 10 GM POWD.PACK PO ×2 (13:50→22:42)
--- NOTE | 2023-07-31 14:05 | MHC.EDTECH ---
[address] [facility] 208
[2023-07-31 14:08] LABS: Glucose, Whole Blood 208 mg/dL (60-115)
--- NOTE | 2023-07-31 14:08 | PM.EVENT ---
Event Note Date of Service: 07/31/23 Event Note: Patient is a 63 Y M with metastatic colon cancer to the liver, s/p colostomy, p/w few-day history increased ostomy output and decreased PO intake; in ED, found to have acute renal insufficiency, c/b hyperkalemia; no appreciable peaked T waves on EKG; upon assessment, patient awake, alert, in no acute distress; no appreciable rales, rhonchi, wheezing; S1, S2, no murmurs, rubs gallops; abdomen soft, non-distended; ostomy with brown, liquid output; no appreciable edema, cyanosis; patient reports urinating normally; case discussed with Dr. Alejo; given patient with urine output, and no appreciable signs of volume overload, reasonable to administer IVF with close monitoring of urine output, bicarbonate gtt, and repeat laboratories; of note, I discussed hemodialysis with Mr. Bustamante, which he is ammendable to, should he need it; if worsening renal indices, please reach out to ICU Time Spent With Patient Time: Total time managing care of this patient today ____ minutes.
[2023-07-31] MEDS: Sodium Bicarbonate 8.4% 50 MEQ in Dextrose 5 % 950 ML 150 MEQ IV ×2 (14:11→21:20)
[2023-07-31 16:07] LABS: Anion Gap 10 (12-20); Blood Urea Nitrogen 48 mg/dL (9-16); Calcium 10.3 mg/dL (8.4-10.2); Carbon Dioxide 17 mmol/L (22-29); Chloride 112 mmol/L (96-108); Creatinine Clr Calc Pharmacy 41.7; Estimated Glomerular Filt Rate 42; Glucose Random 59 mg/dL (60-115); Potassium 6.9 mmol/L (3.3-5.1); Sodium 132 mmol/L (135-145)
[2023-07-31 17:11] LABS: Glucose, Whole Blood 90 mg/dL (60-115)
--- NOTE | 2023-07-31 17:20 | P.HPHOSP_ITS ---
<Statement entered by Pema Steele MD - 08/08/23 11:34> The patient was seen and evaluated with SANDRO Lowe. I agree with her note, assessment and plan with the following. In summary, A 63-year-old male with history of ILD and metastatic colon cancer with liver and lung metastasis on FOLFIRI Avastin s/p colostomy admitted for management of BETTYE with hyperkalemia. #Acute kidney injury w Hyperkalemia and Acidosis prerenal due to hypovolemia Treat with IVF and avoid avoid nephrotoxins nephrology consult CT abd/pelvis ordered Tx with regular insulin, continue sodium bicarb/D5 drip, albuterol 2 puffs, Kayexalate 30 g Repeat BMP Rest of evaluations by SANDRO note. History of Present Illness Date of Service: 07/31/23 Attending physician on admission: Pema Steele Chief Complaint: weakness, diarrhea 63-year-old male with history of ILD/pulmonary fibrosis and metastatic colon cancer with liver and lung metastasis on FOLFIRI Avastin following with Dr. Mckee s/p colostomy presents to the ED earlier today from oncology office due to progressive weakness in severe lower abdominal discomfort ongoing for several weeks. He has not been eating and drinking much and has little appetite. He feels like he is dehydrated though is making urine and has watery stool via his ostomy bag. Labs were performed revealing acute renal failure with hyperkalemia and case was discussed with ED by oncology provider for management of hyperkalemia, BETTYE and for CT of the abdomen/pelvis. While in the ED, vital signs were stable. Initial labs revealed a leukocytosis of 17.7, normocytic anemia. Initial creatinine 1.91 (baseline 0.93), BUN 56. Initial sodium 128, potassium 7.1, chloride 110, CO2 12. Initial EKG did not reveal peaked T waves. He was given 1 L IVF with limited improvement in renal function and electrolyte levels with creatinine 1.76, BUN 52, sodium 129, worsening potassium of 7.4, CO2 14. ICU provider was then consulted who did not feel patient warranted ICU level of care. He was then treated with 10 units regular insulin, 1 amp of sodium bicarb, sodium bicarb/D5 drip, and lokelma. On admission, renal function improved with creatinine 1.64, BUN 48. Electrolyte levels improved with sodium 132, potassium 6.9, CO2 17. POC glucose was low at 59, given 1 amp d50. He is currently reporting severe pain in the lower abd and low back. No sob, lightheadedness, palpitations, or chest pain. No n/v. Review of Systems 2 Review of Systems: General: No fevers, malaise, unintentional weight loss HEENT: No blurred vision, diplopia. No sore throat, nasal congestion, rhinorrhea, sinus pain, ear pain Cardiovascular: No chest pain, palpitations, or leg edema Respiratory: No shortness of breath, wheezing, cough GI: +abd pain, +diarrhea, +anorexia. No nausea, vomiting, constipation, melena, hematochezia : No dysuria, hematuria, increased urinary frequency, decreased urinary output MSK: No myalgia. +back pain Neuro: No headaches, weakness, paresthesias Skin: No rashes or lesions [facility] Medical History Pulmonary nodule Colon cancer metastasized to liver Pulmonary fibrosis ILD (interstitial lung disease) Chronic respiratory failure Tubular adenoma Colon cancer metastasized to liver Family History Son Cystic fibrosis Brother Esophageal cancer Maternal Aunt Lung cancer Surgical History H/O knee surgery Social History Household Members: Spouse and Children Substance Use Type: Marijuana Advance Directives: Yes Advance Directives on File: Yes Advance Directives Date on File: 12/12/22 service: No Current occupational status: employed Current occupation: [employer] Allergies Allergy/AdvReac Type Severity Reaction Status Date / Time prednisone [PREDNISONE] AdvReac Intermediate Psychosis Verified 03/05/23 08:51 Active Medications: Current Medications Acetaminophen (Acetaminophen 325 Mg Tablet) 650 mg PO Q6H PRN PRN Reason: Pain, Mild (Pain Scale 1-3) Heparin Sodium (Porcine) (Heparin Sodium,Porcine 5,000 Unit/Ml Vial) 5,000 unit SUBCUT Q12H PINEDA Sodium Bicarbonate 50 meq/ (Dextrose) 1,000 mls @ 150 mls/hr IV .Q6H40M PINEDA Last Admin: 07/31/23 14:11 Dose: 150 mls/hr Ondansetron HCl (Ondansetron Hcl 4 Mg/2 Ml Vial) 4 mg IVPUSH Q8H PRN PRN Reason: Nausea and Vomiting Senna (Sennosides 8.6 Mg Tablet) 17.2 mg PO BEDTIME PRN PRN Reason: Constipation Sodium Chloride (0.9 % Sodium Chloride Flush 3 Ml Syringe) 3 ml IVFLUSH QSHIFT [facility] Home Medications Medication Instructions Recorded Confirmed Last Taken Type loperamide 2 mg capsule 2 mg PO BID PRN Diarrhea 05/19/20 07/09/23 08/01/22 History acetaminophen 650 mg 650 mg PO Q6H PRN Pain 08/04/22 07/09/23 Unknown History tablet,extended release omeprazole 40 mg capsule,delayed 40 mg PO DAILY@0630 08/04/22 07/09/23 08/01/22 History release Physical Exam 2 Vital Signs and Narrative: Vital Signs: Last Vital Signs Temp 98.3 F 07/31/23 14:10 Pulse 76 07/31/23 16:51 Resp 12 07/31/23 16:51 BP 140/75 H 07/31/23 16:51 Pulse Ox 98 07/31/23 16:51 O2 Del Method Room Air 07/31/23 16:51 BMI result Body Mass Index 20.2 Constitutional - Awake and Alert, No apparent distress Eyes - PERRLA, EOMI Cardiovascular - S1S2, RRR, No edema Respiratory - Normal lung expansion, Normal respiratory effort, No respiratory distress, rhonchi bilaterally Gastrointestinal - NT / ND; +BS; No rebound or guarding, ostomy with watery brown/yellow output Extremities - no calf tenderness bilaterally, no swelling Skin - Warm/Dry Neurological - Alert & oriented x3 Psychological - Appropriate affect Results Labs 07/31/23 15:47 Labs: Laboratory Results - last 24 hr 07/31/23 07/31/23 07/31/23 12:41 13:39 14:05 Anion Gap 10 L Estim Creat Clear Calc 38.9 Estimated GFR 39 POC Glucose 87 208 H Random Glucose 94 Calcium 8.5 D 07/31/23 07/31/23 15:47 16:50 Anion Gap 10 L Estim Creat Clear Calc 41.7 Estimated GFR 42 POC Glucose 90 Random Glucose 59 L* Calcium 10.3 H D Imaging Radiologist's Impressions: Impressions Renal Ultrasound 07/31/23 11:32 IMPRESSION: No significant finding within the kidneys. Assessment and Plan (1) Acute hyperkalemia: Status: Acute (2) Acute dehydration: Status: Acute (3) Acute kidney injury: Status: Acute (4) Diarrhea: Status: Acute (5) Colon cancer metastasized to liver: Status: Chronic Plan [id number] male with history of ILD/pulmonary fibrosis and metastatic colon cancer with liver and lung metastasis on FOLFIRI Avastin following with Dr. Mckee s/p colostomy admitted for further management of BETTYE with hyperkalemia #Acute kidney injury- likely prerenal due to hypovolemia from poor PO intake -Creat 1.64 on admission (baseline 0.9), BUN 48 -Continue IVF -avoid nephrotoxins -strict I&O -nephrology consult -CT abd/pelvis ordered per oncology #Acute hyperkalemia -K 7.1--> 7.4 -->6.9 on admission -EKG without peaked T waves -Give addl 10 units regular insulin, continue sodium bicarb/D5 drip, albuterol 2 puffs, Kayexalate 30 g -Continue IVF -Monitor on telemetry -Repeat BMP @8pm, follow am #Acute metabolic acidosis -2/2 to above -continue sodium bicarb drip -follow bmp #Acute diarrhea -recent abx use -check cdiff pcr and GI panel #Anorexia with moderate malnutrition with protein deficiency -likely 2/2 malignancy -oncology consult -add ensure #Metastatic colon cancer with mets to liver and lungs -oncology consult -pain management #ILD/pulmonary fibrosis- 2/2 chemo -stable, no hypoxia DVt prophalaxis- heparin Full code Patient will likely require inpatient stay at least 2 midnights for management of severe hyperkalemia with acute kidney injury requiring aggressive management of potassium levels, IV fluid resuscitation, expert consultation, close monitoring of renal function electrolyte levels, as well as cardiac monitoring Quality Stroke Does the patient have a stroke diagnosis?: No VTE Prior VTE?: No VTE Risk Level:: Medical - moderate - high VTE Device Contraindication: Treatment Not Indicated VTE Drug Contraindication: N/A - Med Ordered
[2023-07-31] MEDS: Albuterol Sulfate 90 MCG 8 GM INHALER 2 PUFF INHALE (17:29)
[2023-07-31] MEDS: HYDROmorphone HCl 0.5 MG/0.5 ML SYRINGE IVPUSH ×2 (18:06→22:23)
[2023-07-31] MEDS: Sodium Polystyrene Sulfon/Sorb 15 GM/60 ML ORAL.SUSP 30 GM PO (18:23)
[2023-07-31] MEDS: Heparin Sodium,Porcine 5,000 UNIT/ML VIAL 5000 UNIT SUBCUT (18:24)
[2023-07-31 18:32] LABS: Glucose, Whole Blood 176 mg/dL (60-115)
--- NOTE | 2023-07-31 18:51 | PHA.MEDREC ---
Pharmacy Consult ? Medication Reconciliation Pharmacy has completed the medication reconciliation. Spoke to patient and confirmed medication list.
[2023-07-31 19:30] LABS: Glucose, Whole Blood 63 mg/dL (60-115)
--- NOTE | 2023-07-31 19:30 | MHC.EDTECH ---
Pt offered juice, Pt refused.
[2023-07-31] MEDS: ondansetron HCL 4 MG/2 ML VIAL IVPUSH (19:46)
--- NOTE | 2023-07-31 19:55 | PC.NURSE ---
assumed care of pt 191; poc 63 Dr. Chen notified hypoglycemia protocol entered. pt medicated per mar also feeling nauseous episode of vomiting. pt reports feeling better with meds. pt changed into hospital gown. report given to Lesli GRECO RN. pt to be transported by Alfonso Coretta.
[2023-07-31 20:00] LABS: Anion Gap 10 (12-20); Blood Urea Nitrogen 46 mg/dL (9-16); Calcium 10.1 mg/dL (8.4-10.2); Carbon Dioxide 18 mmol/L (22-29); Chloride 110 mmol/L (96-108); Creatinine Clr Calc Pharmacy 43.6; Estimated Glomerular Filt Rate 45; Glucose Random 50 mg/dL (60-115); Sodium 132 mmol/L (135-145)
[2023-07-31 20:23] LABS: Glucose, Whole Blood 140 mg/dL (60-115)
[2023-07-31] MEDS: 0.9 % Sodium Chloride 1,000 ML 100 ML IVCONT (21:02)
[2023-07-31] MEDS: Morphine Sulfate ER 30 MG TABLET.ER PO (21:13)
--- NOTE | 2023-07-31 22:22 | PM.EVENT ---
Event Note Date of Service: 07/31/23 Event Note: Chart reviewed 63 y r old man with Ca Colon on chemo ,admitted with kyaw/Hyperkalemia/Acidosis Agree with IVF and current management Add Lokelma 10 gm PO x1 dose Full consult to follow Thanks Time Spent With Patient Time: Total time managing care of this patient today ____ minutes.
[2023-08-01] VITALS (9 sets, daily range): BP systolic 102–144; BP diastolic 56–70; PULSE 59–78; RESP 16–20; TEMP 36.1–36.7; O2SAT 94–99
[2023-08-01] MEDS: HYDROmorphone HCl 0.5 MG/0.5 ML SYRINGE IVPUSH ×5 (02:44→22:19)
[2023-08-01] MEDS: Sodium Bicarbonate 8.4% 50 MEQ in Dextrose 5 % 950 ML 150 MEQ IV (04:07)
[2023-08-01] MEDS: Heparin Sodium,Porcine 5,000 UNIT/ML VIAL 5000 UNIT SUBCUT ×2 (06:10→17:36)
[2023-08-01] MEDS: 0.9 % Sodium Chloride 1,000 ML 100 ML IVCONT (06:12)
[2023-08-01] MEDS: Acetaminophen 325 MG TABLET 650 MG PO (06:16)
[2023-08-01 07:16] LABS: MANUAL DIFF FLAG NO
[2023-08-01 07:19] LABS: Basophils Percent Auto 0.4 % (0-2); Eosinophils Absolute Auto 0.1 X10*3/uL (0.0-0.4); Eosinophils Percent Auto 1.2 % (0-4); Hemoglobin 9.2 g/dl (14.0-18.0); Imm Gran Abs Auto 0.06 X10*3/uL (0.00-0.03); Imm Gran Pct Auto 0.6 % (0.0-0.4); Lymphocytes Absolute Auto 0.9 X10*3/uL (1.2-4.9); Lymphocytes Percent Auto 8.7 % (20-40); Mean Corpuscular HGB Conc 32.9 g/dl (31.0-36.0); Mean Corpuscular Hemoglobin 30.3 pg (27.0-33.0); Mean Corpuscular Volume 92.1 fL (80.0-98.0); Mean Platelet Volume 11.3 fL (9.4-12.4); Monocytes Absolute Auto 0.7 X10*3/uL (0.1-1.2); Neutrophils Absolute Auto 8.2 x10*3/uL (2.0-8.3); Neutrophils Percent Auto 82.1 % (45-73); Platelet Count 188 X10*3/uL (160-400); Red Blood Count 3.04 X10*6/uL (4.60-5.80); Red Cell Distribution Width 15.9 % (11.0-16.0)
[2023-08-01 07:30] LABS: Anion Gap 10 (12-20); Blood Urea Nitrogen 36 mg/dL (9-16); Calcium 8.4 mg/dL (8.4-10.2); Carbon Dioxide 17 mmol/L (22-29); Chloride 106 mmol/L (96-108); Creatinine Clr Calc Pharmacy 50.7; Estimated Glomerular Filt Rate 53; Glucose Random 136 mg/dL (60-115); Potassium 5.3 mmol/L (3.3-5.1); Sodium 128 mmol/L (135-145)
[2023-08-01] MEDS: Morphine Sulfate ER 30 MG TABLET.ER PO ×2 (08:04→21:45)
--- NOTE | 2023-08-01 08:06 | PM.HEMONCCN ---
Subjective - Subjective Chief complaint: Weakness, left lower quadrant pain Patient: known to practice within the last 3 years Consult date: 08/01/23 Requesting Physician: Luciana Weiss Primary Care Provider: Jono Headley MD Medical Summary: Metastatic colon cancer diagnosed in October 2018. Presented with abdominal pain, 30 pound weight loss and severe pain. He had abnormal colonoscopy in 2009. He was told he needed a repeat colonoscopy in 5 years but he did not go for testing. CT abdomen/pelvis with IV contrast shows multiple areas of wall thickening in the sigmoid colon as well as thickening and enhancement of cecum, terminal ileum. Long segment of wall thickening of the distal transverse colon and left colon. Enlarged mesenteric and retroperitoneal lymph nodes, multiple liver metastasis and lung metastasis, all of these worrisome for metastatic colorectal malignancy. 11/01/18-Core biopsy of the right liver mass, moderately differentiated adenocarcinoma consistent with colorectal primary. KRAS mutation not detected BRAF mutation not detected. NRAS negative, MSI proficient or MSI stable. He developed bowel obstruction, palliative bypass ileostomy has been performed in November 2018. He started on mFOLFOX/Avastin regimen from 11/27/2018. His last treatment cycle 13 was on 05/14/2019. 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 Repeat CT abdomen/pelvis on 09/18/2019 showed further decrease in size of liver metastasis. He was on maintenance Xeloda 1500 mg p.o. b.i.d. 2 weeks on/1 week off, along with bevacizumab Q 3 weeks starting 10/22/2019 until 12/13/2020. Rising CEA as well as imaging in November 2020 showed evidence of progressive disease. He started irinotecan with bevacizumab from December 2020. HPI - Consult Narrative Reason for consult: Metastatic colon cancer Narrative: Milind Bustamante Jr is a 63 year old male who is well known to me with a history of metastatic colon cancer. He has been receiving chemotherapy in the palliative setting since 2019. Most recent chemotherapy has been FOLFIRI/Avastin. In the last 2-3 weeks he has not been feeling well, presented with upper respiratory in symptoms in the beginning of July. He received supportive care for RSV infection. He reports ongoing cough but no fever or chills. He also has pain in left lower quadrant of his abdomen and back when he coughs. He has been taking Tylenol for the pain but not NSAIDs. His appetite has been down and he has not been eating or drinking much. He also reports loose stools in the ostomy bag. Patient was seen urgently in the oncology clinic because of symptoms of weakness and abdominal pain. Blood work revealed acute renal insufficiency and hyperkalemia. He was therefore referred to the emergency department. Review of Systems - Constitutional Reports as per HPI, Reports lack of energy, Reports malaise - Neurologic Denies sensory deficit [facility] Medical History: Medical History (Last Reviewed 08/01/23 @ 10:46 by Daya Paula, PT) Chronic respiratory failure Colon cancer metastasized to liver Colon cancer metastasized to liver ILD (interstitial lung disease) Pulmonary fibrosis Pulmonary nodule Tubular adenoma Family History: Family History (Last Reviewed 07/31/23 @ 17:57 by SANDRO Lowe) Son Cystic fibrosis Brother Esophageal cancer Maternal Aunt Lung cancer Surgical History: Surgical History (Last Reviewed 08/01/23 @ 10:46 by Daya Paula PT) H/O knee surgery Social History: Social History (Last Reviewed 07/31/23 @ 17:57 by SANDRO Lowe) Living Situation History: Household Members: Family Housing: House Do you presently have visiting nurse or other home services: Yes Do you presently have visiting nurse or other home services comment: son s girlfriend is GREY [employer]CHER. Alcohol History Details: 1. How often do you have a drink containing alcohol?: b. Monthly or less 2. How many drinks containing alcohol do you have on a typical day when you are drinking?: a. 1 or 2 3. How often do you have six or more drinks on one occasion?: b. Less than monthly AUDIT-C Alcohol total score: 2 Last drink: Days (ago) Last Drank Other:: over 1 month ago Currently Displaying Signs/Symptoms of Alcohol Withdrawal: No Tobacco History: Patient Tobacco Use Status: Former Tobacco user Tobacco use type: Cigarette Smoked in Last 30 Days: No e-Cigarette/Vaping Use: Former Use Patient Interested in Nicotine Replacement: No Patient Given Instructions on How to Stop Smoking: No Second Hand Smoke Exposure: No Substance Use History: Use of substances other than those prescribed or required for medical reasons: Yes Substance Use Type: Marijuana Substance Use Frequency: Occasionally Last Used Substance: Days (ago) Last Used Substance Other:: stopped marijuana months ago Currently Displaying Signs/Symptoms of Drug Intoxication Withdrawal: No Any prior treatment program specific to substance use: No Domestic Abuse History: Have you been hit, kicked, punched, or otherwise hurt by someone within the past year? If so, by whom?: No Do you feel safe in your current relationship?: Yes Is there a partner from a previous relationship who is making you feel unsafe now?: No Are you made to feel afraid or neglected: No Advance Directives: Advance Directives: Yes Advance Directives Information Provided: No Advance Directives on File: Yes Advance Directives Date on File: 12/12/22 Homicidal Assessment: Do you have thoughts of harming others: None Do you have a plan to hurt others: No Plan Nutrition Assessment: Recently lost weight without trying: Yes How much weight loss: 14-23 pounds Nutrition Risks: Poor intake 0-25% >4 days Occupation Assessmet: service: No Current occupational status: employed Current occupation: [employer] Medications and Allergies Current Medications: Current Medications Acetaminophen (Acetaminophen 325 Mg Tablet) 650 mg PO Q6H PRN PRN Reason: Pain, Mild (Pain Scale 1-3) Last Admin: 08/01/23 06:16 Dose: 650 mg Dextrose (Dextrose 50 % 25 Gm/50 Ml Syringe) 25 gm IVPUSH Q15M PRN; Protocol PRN Reason: per Hypoglycemia Standing Ord. Last Admin: 07/31/23 19:46 Dose: 25 gm Heparin Sodium (Porcine) (Heparin Sodium,Porcine 5,000 Unit/Ml Vial) 5,000 unit SUBCUT Q12H [facility] Last Admin: 08/01/23 06:10 Dose: 5,000 unit Hydromorphone HCl (Hydromorphone Hcl 0.5 Mg/0.5 Ml Syringe) 0.5 mg IVPUSH Q4H PRN; Protocol PRN Reason: Pain, Severe (Pain Scale 7-10) Last Admin: 08/01/23 08:03 Dose: 0.5 mg Sodium Bicarbonate 50 meq/ (Dextrose) 1,000 mls @ 150 mls/hr IV .Q6H40M [facility] Last Admin: 08/01/23 04:07 Dose: 150 mls/hr Sodium Chloride (Ns) 1,000 mls @ 100 mls/hr IVCONT .Q10H [facility] Last Admin: 08/01/23 06:12 Dose: 100 mls/hr Morphine Sulfate (Morphine Sulfate Er 30 Mg Tablet.Er) 30 mg PO Q12H [facility] Last Admin: 08/01/23 08:04 Dose: 30 mg Ondansetron HCl (Ondansetron Hcl 4 Mg/2 Ml Vial) 4 mg IVPUSH Q8H PRN PRN Reason: Nausea and Vomiting Last Admin: 07/31/23 19:46 Dose: 4 mg Oxycodone HCl (Oxycodone Hcl Immed Release 5 Mg Tablet) 5 mg PO Q6H PRN PRN Reason: Pain, Moderate(Pain Scale 4-6) Senna (Sennosides 8.6 Mg Tablet) 17.2 mg PO BEDTIME PRN PRN Reason: Constipation Sodium Chloride (0.9 % Sodium Chloride Flush 3 Ml Syringe) 3 ml IVFLUSH QSHIFT [facility] Last Admin: 08/01/23 07:59 Dose: Not Given Home Medications Medication Instructions Recorded Confirmed Type acetaminophen 650 mg 650 mg PO Q6H PRN Pain 08/04/22 07/31/23 History tablet,extended release omeprazole 40 mg capsule,delayed 40 mg PO DAILY@0630 08/04/22 07/31/23 History release Allergies Allergy/AdvReac Type Severity Reaction Status Date / Time prednisone [PREDNISONE] AdvReac Intermediate Psychosis Verified 03/05/23 08:51 Physical Exam Vital signs: Vital Signs Temp 96.9 F 08/01/23 07:12 Pulse 68 08/01/23 07:12 Resp 16 08/01/23 08:03 BP 102/60 08/01/23 07:12 Pulse Ox 97 08/01/23 07:12 O2 Del Method Room Air 08/01/23 07:12 Intake & Output 07/31/23 08/01/23 08/01/23 18:59 06:59 18:59 Intake Total 1000 / 4516.667 3516.667 / 4516.667 Output Total 1000 / 1000 Balance 1000 / 3516.667 2516.667 / 3516.667 Intake: Intake, Oral Amount 600 / 600 Intake, IV Amount 1000 / 3916.667 2916.667 / 3916.667 Sodium Bicarbonate 8.4% 50 meq 1999 / 1999 In Dextrose 5 % 950 ml @ 150 mls/hr IV .Q6H40M [facility] Rx#: [id number] 0.9 % Sodium Chloride 1,000 ml 1000 / 1916.667 916.667 / 1916.667 @ 100 mls/hr IVCONT .Q10H [facility] Rx#:[id number] Output: Output, Stool Amount 1000 / 1000 Other: Dinner % Eaten 0% Number of Unmeasured Voids 2 Weight 65.771 kg Weight 65.771 kg - Constitutional Present: no acute distress, cachectic, chronically ill appearing - Routine HEENT Exam Eye: Present: normal appearance, conjunctivae pale - Routine Neck Exam Absent: lymphadenopathy - Routine Respiratory Exam Present: rhonchi. Absent: accessory muscle use - Routine Cardiovascular Exam Cardiovascular: Present: S1, S2 - Routine Abdominal Exam Absent: mass Hem/Onc Consult Result - Labs CBC & Chem 7: 08/01/23 06:49 08/01/23 06:49 Labs: Short CBC 08/01/23 Range/Units 06:49 WBC 10.0 (4.8-10.8) X10*3/uL Hgb 9.2 L D (14.0-18.0) g/dl Hct 28.0 L D (42.0-52.0) % Plt Count 188 D (160-400) X10*3/uL BMP 07/31/23 07/31/23 07/31/23 12:41 15:47 19:33 Sodium 129 L 132 L 132 L Potassium 7.4 H* 6.9 H* 6.0 H* Chloride 112 H 112 H 110 H Carbon Dioxide 14 L 17 L 18 L BUN 52 H 48 H 46 H Creatinine 1.76 H 1.64 H 1.57 H Calcium 8.5 D 10.3 H D 10.1 08/01/23 06:49 Sodium 128 L Potassium 5.3 H Chloride 106 Carbon Dioxide 17 L BUN 36 H Creatinine 1.35 Calcium 8.4 D Assessment and Plan Patient Active problem list reviewed?: Yes (1) Colon cancer metastasized to liver Status: Chronic Assessment and plan: 1. This is a 63-year-old gentleman, with metastatic colon carcinoma, with liver and lung metastases. Biopsy of the liver lesion, Moderately differentiated adenocarcinoma. He developed bowel obstruction, palliative bypass ileostomy has been performed in November 2018. He has been receiving second-line palliative chemotherapy with FOLFIRI/Avastin since August 2022. He was doing well until he presented with URI symptoms that was diagnosed as RSV infection in the beginning of July 2023. Since then, he has been declining with poor appetite, decreased oral intake and weight loss. Blood work in the office yesterday revealed acute kidney injury and hyperkalemia with potassium level of 7.4. A stat CT abdomen did not reveal renal obstruction or progressive malignancy. He seems to be responding with IV hydration. Potassium level has come down with hydration and potassium binders. His renal function is also improving and he feels better. CT abdomen/pelvis comments on increase bilateral peripheral nodular opacities at lung bases. Recommend chest x-ray. Appreciate hospitalist's and Nephrology input. Thank you for the consult, will follow. - Time Spent With Patient Time Spent with Patient (in minutes): 20
--- NOTE | 2023-08-01 09:31 | P.CONNP_ITS ---
History of Present Illness Reason for Consult Consult date: 08/02/23 Chief Complaint Chief complaint: hyperkalemia,kyaw History of Present Illness Narrative: 63-year-old man with history of ILD/pulmonary fibrosis and metastatic colon cancer with liver and lung metastasis on FOLFIRI Avastin following with Dr. Mckee s/p colostomy presents to the ED from oncology office due to progressive weakness in severe lower abdominal discomfort ongoing for several weeks. He has not been eating and drinking much and has little appetite. He feels like he is dehydrated though is making urine and has watery stool via his ostomy bag. Labs were performed revealing acute renal failure with hyperkalemia While in the ED, vital signs were stable. Initial labs revealed a leukocytosis of 17.7, normocytic anemia. Initial creatinine 1.91 (baseline 0.93), BUN 56. Initial sodium 128, potassium 7.1, chloride 110, CO2 12. Initial EKG did not reveal peaked T waves. He was given 1 L IVF with limited improvement in renal function and electrolyte levels with creatinine 1.76, BUN 52, sodium 129, worsening potassium of 7.4, CO2 14. . He was then treated with 10 units regular insulin, 1 amp of sodium bicarb, sodium bicarb/D5 drip, and lokelma. On admission, renal function improved with creatinine 1.64, BUN 48. Electrolyte levels improved with sodium 132, potassium 6.9, CO2 17. POC glucose was low at 59, given 1 amp d50. He is currently reporting severe pain in the lower abd and low back. No sob, lightheadedness, palpitations, or chest pain. No n/v. Review of Systems Constitutional: Denies fever(s) and Denies weight loss Cardiovascular: Denies chest pain Respiratory: Denies cough and Denies hemoptysis Gastrointestinal: Denies diarrhea and Denies nausea Musculoskeletal: Denies back pain Denies focal weakness PMFSH Past Medical History Medical History Pulmonary nodule Colon cancer metastasized to liver Pulmonary fibrosis ILD (interstitial lung disease) Chronic respiratory failure Tubular adenoma Colon cancer metastasized to liver Family History Family History Son Cystic fibrosis Brother Esophageal cancer Maternal Aunt Lung cancer Surgical History Surgical History H/O knee surgery Social History Social History Household Members: Family Housing: House Do you presently have visiting nurse or other home services: Yes (son s girlfriend is [employer].) Patient Tobacco Use Status: Former Tobacco user Tobacco use type: Cigarette Smoked in Last 30 Days: No e-Cigarette/Vaping Use: Former Use Patient Interested in Nicotine Replacement: No Patient Given Instructions on How to Stop Smoking: No Second Hand Smoke Exposure: No Use of substances other than those prescribed or required for medical reasons: Yes Substance Use Type: Marijuana Substance Use Frequency: Occasionally Last Used Substance: Days (ago) Last Used Substance Other:: stopped marijuana months ago Currently Displaying Signs/Symptoms of Drug Intoxication Withdrawal: No Any prior treatment program specific to substance use: No Have you been hit, kicked, punched, or otherwise hurt by someone within the past year? If so, by whom?: No Do you feel safe in your current relationship?: Yes Is there a partner from a previous relationship who is making you feel unsafe now?: No Are you made to feel afraid or neglected: No Advance Directives: Yes Advance Directives Information Provided: No Advance Directives on File: Yes Advance Directives Date on File: 12/12/22 Do you have thoughts of harming others: None Do you have a plan to hurt others: No Plan Recently lost weight without trying: Yes How much weight loss: 14-23 pounds Nutrition Risks: Poor intake 0-25% >4 days service: No Current occupational status: employed Current occupation: [employer] Allergies Allergy/AdvReac Type Severity Reaction Status Date / Time prednisone [PREDNISONE] AdvReac Intermediate Psychosis Verified 03/05/23 08:51 Active Medications: Current Medications Acetaminophen (Acetaminophen 325 Mg Tablet) 650 mg PO Q6H PRN PRN Reason: Pain, Mild (Pain Scale 1-3) Last Admin: 08/01/23 06:16 Dose: 650 mg Dextrose (Dextrose 50 % 25 Gm/50 Ml Syringe) 25 gm IVPUSH Q15M PRN; Protocol PRN Reason: per Hypoglycemia Standing Ord. Last Admin: 07/31/23 19:46 Dose: 25 gm Heparin Sodium (Porcine) (Heparin Sodium,Porcine 5,000 Unit/Ml Vial) 5,000 unit SUBCUT Q12H [facility] Last Admin: 08/01/23 06:10 Dose: 5,000 unit Hydromorphone HCl (Hydromorphone Hcl 0.5 Mg/0.5 Ml Syringe) 0.5 mg IVPUSH Q4H PRN; Protocol PRN Reason: Pain, Severe (Pain Scale 7-10) Last Admin: 08/01/23 08:03 Dose: 0.5 mg Sodium Bicarbonate 50 meq/ (Dextrose) 1,000 mls @ 150 mls/hr IV .Q6H40M [facility] Last Admin: 08/01/23 04:07 Dose: 150 mls/hr Sodium Chloride (Ns) 1,000 mls @ 100 mls/hr IVCONT .Q10H [facility] Last Admin: 08/01/23 06:12 Dose: 100 mls/hr Morphine Sulfate (Morphine Sulfate Er 30 Mg Tablet.Er) 30 mg PO Q12H [facility] Last Admin: 08/01/23 08:04 Dose: 30 mg Ondansetron HCl (Ondansetron Hcl 4 Mg/2 Ml Vial) 4 mg IVPUSH Q8H PRN PRN Reason: Nausea and Vomiting Last Admin: 07/31/23 19:46 Dose: 4 mg Oxycodone HCl (Oxycodone Hcl Immed Release 5 Mg Tablet) 5 mg PO Q6H PRN PRN Reason: Pain, Moderate(Pain Scale 4-6) Senna (Sennosides 8.6 Mg Tablet) 17.2 mg PO BEDTIME PRN PRN Reason: Constipation Sodium Chloride (0.9 % Sodium Chloride Flush 3 Ml Syringe) 3 ml IVFLUSH QSHIFT [facility] Last Admin: 08/01/23 07:59 Dose: Not Given Home Medications Medication Instructions Recorded Confirmed Last Taken Type acetaminophen 650 mg 650 mg PO Q6H PRN Pain 08/04/22 07/31/23 Unknown History tablet,extended release omeprazole 40 mg capsule,delayed 40 mg PO DAILY@0630 08/04/22 07/31/23 07/31/23 History release Physical Exam Vital Signs: Last Vital Signs Temp 96.9 F 08/01/23 07:12 Pulse 68 08/01/23 07:12 Resp 16 08/01/23 08:03 BP 102/60 08/01/23 07:12 Pulse Ox 97 08/01/23 07:12 O2 Del Method Room Air 08/01/23 07:12 BMI result Body Mass Index 20.2 Const General: comfortable Nutritional Appearance: well nourished Orientation/consciousness: patient oriented x3 HEENT Head: No normal to inspection Mouth: moist mucous membranes Neck Neck: Yes supple and Yes no JVD Resp Auscultation: clear to auscultation bilaterally, no rales and rub present Cardio Jugular venous distension: no JVD Palpation: no palpable S3 and no palpable S4 Heart sounds: no rubs GI Inspection: Yes other (Colostomy bag in place) Palpation (GI): Soft to palpation and nontender Percussion: No Fluid wave present General: Yes no CVA tenderness Back/Spine/Pelvis Back: no CVA tenderness Skin General skin exam: no rashes or lesions noted Neuro General: patient oriented x3 Extrem General: Yes no pedal edema and No clubbing Results Lab Results 08/02/23 06:52 08/02/23 06:52 Lab results: Chemistry 07/31/23 07/31/23 07/31/23 12:41 15:47 19:33 Sodium 129 L 132 L 132 L Potassium 7.4 H* 6.9 H* 6.0 H* Carbon Dioxide 14 L 17 L 18 L BUN 52 H 48 H 46 H Creatinine 1.76 H 1.64 H 1.57 H Calcium 8.5 D 10.3 H D 10.1 08/01/23 06:49 Sodium 128 L Potassium 5.3 H Carbon Dioxide 17 L BUN 36 H Creatinine 1.35 Calcium 8.4 D Hematology 08/01/23 06:49 WBC 10.0 Hgb 9.2 L D Plt Count 188 D Assessment and Plan (1) Acute kidney injury: Status: Acute (2) Acute hyperkalemia: Status: Acute (3) Hyponatremia: Status: Acute (4) Metabolic acidosis: Status: Acute Plan 62-year-old man with acute kidney injury most likely due to hypoperfusion from poor p.o. intake in the setting of chemotherapy. CT scan did not reveal any evidence of obstructive uropathy. Based on the clinical picture and urinary findings I do not believe he has any active glomerulonephritis or interstitial disease at this time. Hyponatremia is due to the infusion of hypotonic fluids. He has been getting D5W with 1 amp of sodium bicarbonate which is clearly hypotonic. Severe metabolic acidosis with hyperkalemia both due to underlying acute kidney injury. Metabolic acidosis contributed to further hyperkalemia due to translocation of intracellular potassium. Recommendations IV hydration. I would use isotonic fluids. Since he is still acidotic I would change IV fluids to D5W with 3 ampules of sodium bicarbonate and keep the rate at 100 cc/hour. Check serum electrolytes every 12 hours. Goal is to correct serum sodium at a rate of 0.5-1 millimole per L/hr and not exceed more than 10 millimoles in a 24 hour. Serum potassium is normalizing. With the correction of acidosis serum potassium should improve further. No need for Lokelma today. Renal function should return to baseline once he is euvolemic. She will follow along with the team. Thank you Procedures Date of Service Date of Service: 08/02/23
--- NOTE | 2023-08-01 09:53 | MHC.CM.PN ---
IMM 08/01/23, EMR REVIEWED, CM MET W/PT WHO REPORTS HE LIVES W//SON &GF AND GF'S SON, PT REPORTS HE HAS OSTOMY SUPPLIES FOR DME HOWEVER REPORTS MEDICARE DROPPED HIM AND WOULDNT PAY FOR HIS OSTOMY SUPPLIES, PT REPORTS HIS HAS BEEN ON THE PHONE WORKING W/SOMEONE TO GET PT REINSTATED, PT DENIES HAVING SERVICES AT HOME HOWEVER HIS SON'S GF'S ASSISTS HIM W/NEEDS AND BRINGS HIM TO APPT'S. GOAL FOR DC IS HOME PCP AND HCP ON FILE VERIFIED AND PT FULLY COVID VAXED.
[2023-08-01 11:42] LABS: CDiff Gene PCR NEGATIVE (Negative)
[2023-08-01] MEDS: Sodium Bicarbonate 8.4% 150 MEQ in Dextrose 5 % 850 ML 100 MEQ IV ×2 (11:53→22:19)
[2023-08-01 12:32] LABS: Adenovirus F 40/41 Not Detected (Not Detect.); Astrovirus Not Detected (Not Detect.); Campylobacter Not Detected (Not Detect.); Cryptosporidium Not Detected (Not Detect.); Cyclospora cayetanensis Not Detected (Not Detect.); E. coli EAEC Not Detected (Not Detect.); E. coli EPEC Not Detected (Not Detect.); E. coli ETEC Not Detected (Not Detect.); E. coli STEC Not Detected (Not Detect.); Entamoeba histolytica Not Detected (Not Detect.); Giardia lamblia Not Detected (Not Detect.); Norovirus GI/GII Not Detected (Not Detect.); Plesiomonas shigelloides Not Detected (Not Detect.); Rotavirus A Not Detected (Not Detect.); Salmonella Not Detected (Not Detect.); Sapovirus Not Detected (Not Detect.); Shigella sp./EIEC Not Detected (Not Detect.); Vibrio Not Detected (Not Detect.); Vibrio Cholerae Not Detected (Not Detect.); Yersinia enterocolitica Not Detected (Not Detect.)
--- NOTE | 2023-08-01 16:15 | HO.WOUND ---
Ostomy Consult: Initial 63yr old male admitted to [facility] on 07/31/23 17:10? - See progress notes and H&P for detailed history. Ostomy consult placed for burning around stoma and frequent loose stooling from stoma. Arrival to bedside this morning - pt was agreeable to assessment and consultation. He reports he is independent in his ostomy care. he reports he has had the ostomy for approximately 4 years. he denies frequent leaking and on average changes his pouch every 3 days. Recently with the increased loose stools and burning around the stoma he has increased changes to ever 2 days. He reports he empties the pouch when it is a 1/3 - 1/2 full and again is independent. He reports he does have some minor break down around the stoma currently and used stomahesive powder but does not use barrier spray to seal it in place. The pouch was assessed - no leaking noted. There does appear to be a macerated ring around the stoma and the stool is pale yellow clear fluid - direct care nurse Hanh notified. I recommend we change his pouch and apply a barrier ring to aid in protecting the tissue around the stoma- he requests change later in the day. Upon return this early evening he reports he does not want it changed tonight - he reports he is due tomorrow for a change and would prefer to wait until then. Agreeable to this plan as he is not leaking at this time. I provided the patient with a barrier ring and educated him on the benefits of the ring he is agreeable to try tomorrow at time of change. Will follow up with patient tomorrow. Routine Pouching Instructions: 1. Remove pouch every 3-4 days. Change sooner if you notice any leaking. ?Do not reinforce with tape. 2. Clean skin around stoma with warm water and soft cloth. ?Avoid using soaps or lotions. ?Discontinue Adhesive remover if used. *Soaps can contain aloes/lanolins/extracts which leave film on skin that will interfere with pouch adherence 3. Pat skin dry. 4. For the red and irritated skin dust with Stomahesive powder, dust off all excess powder, then seal with no sting wipe, allow to dry. 5. Prepare products; Cut ostomy pouch. 6. Apply Barrier Ring at this time. 7. Remove adhesive paper backing from back of pouch wafer apply Gentle Warm pressure to seal the wafer to his skin. ?
--- NOTE | 2023-08-01 16:58 | P.PNIM_ITS ---
Subjective Subjective Date of Service: 08/01/23 Interval History: Seen in follow up for BETTYE, hyperkalemia, anorexia Interval history: pt reports headache, low back pain. afebrile, VSS. Creat/potassium improving Review of Systems Review of Systems: Yes all other systems are reviewed and are negative Physical Exam 2 Vital Signs: Vital Signs: Last Vital Signs Temp 97.6 F 08/01/23 15:35 Pulse 66 08/01/23 15:35 Resp 18 08/01/23 15:35 BP 144/70 H 08/01/23 15:35 Pulse Ox 99 08/01/23 15:35 O2 Del Method Room Air 08/01/23 15:35 BMI result Body Mass Index 20.2 Constitutional - Awake and Alert, No apparent distress Eyes - PERRLA, EOMI Cardiovascular - S1S2, RRR, No edema Respiratory - Normal lung expansion, Normal respiratory effort, No respiratory distress, rhonchi bll Gastrointestinal - NT / ND; +BS; No rebound or guarding. ostomy with watery brown/yellow output Extremities - no calf tenderness bilaterally, no swelling Skin - Warm/Dry Neurological - Alert & oriented x3 Psychological - Appropriate affect Objective Data Active Medications Acetaminophen (Acetaminophen 325 Mg Tablet) 650 mg PO Q6H PRN PRN Reason: Pain, Mild (Pain Scale 1-3) Last Admin: 08/01/23 06:16 Dose: 650 mg Documented By: INOCENCIO Dextrose (Dextrose 50 % 25 Gm/50 Ml Syringe) 25 gm IVPUSH Q15M PRN; Protocol PRN Reason: per Hypoglycemia Standing Ord. Last Admin: 07/31/23 19:46 Dose: 25 gm Documented By: ARIELLE Heparin Sodium (Porcine) (Heparin Sodium,Porcine 5,000 Unit/Ml Vial) 5,000 unit SUBCUT Q12H [facility] Last Admin: 08/01/23 06:10 Dose: 5,000 unit Documented By: INOCENCIO Hydromorphone HCl (Hydromorphone Hcl 0.5 Mg/0.5 Ml Syringe) 0.5 mg IVPUSH Q4H PRN; Protocol PRN Reason: Pain, Severe (Pain Scale 7-10) Last Admin: 08/01/23 12:00 Dose: 0.5 mg Documented By: IVONNE Sodium Bicarbonate 150 meq/ (Dextrose) 1,000 mls @ 100 mls/hr IV .Q10H [facility] Last Admin: 08/01/23 11:53 Dose: 100 mls/hr Documented By: IVONNE Morphine Sulfate (Morphine Sulfate Er 30 Mg Tablet.Er) 30 mg PO Q12H [facility] Last Admin: 08/01/23 08:04 Dose: 30 mg Documented By: IVONNE Ondansetron HCl (Ondansetron Hcl 4 Mg/2 Ml Vial) 4 mg IVPUSH Q8H PRN PRN Reason: Nausea and Vomiting Last Admin: 07/31/23 19:46 Dose: 4 mg Documented By: ARIELLE Oxycodone HCl (Oxycodone Hcl Immed Release 5 Mg Tablet) 5 mg PO Q6H PRN PRN Reason: Pain, Moderate(Pain Scale 4-6) Senna (Sennosides 8.6 Mg Tablet) 17.2 mg PO BEDTIME PRN PRN Reason: Constipation Sodium Chloride (0.9 % Sodium Chloride Flush 3 Ml Syringe) 3 ml IVFLUSH QSHIFT [facility] Last Admin: 08/01/23 16:42 Dose: Not Given Documented By: IVONNE Non-Admin Reason: IV Running Labs 08/01/23 06:49 08/01/23 06:49 Labs: Laboratory Results - last 24 hr 07/31/23 07/31/23 07/31/23 16:50 18:20 19:25 MCV MCH MCHC RDW Plt Count MPV Immature Gran % (Auto) Neut % (Auto) Lymph % (Auto) [place] % (Auto) Eos % (Auto) Baso % (Auto) Lymph # (Auto) [place] # (Auto) Eos # (Auto) Baso # (Auto) Abs Immat Gran (auto) Absolute Neuts (auto) Absolute Nucleated RBC Nucleated RBC % (auto) Anion Gap Estim Creat Clear Calc Estimated GFR POC Glucose 90 176 H 63 Random Glucose Calcium Stl C. cayetanensis PCR Stool Rotavirus A PCR Stl Adenov F 40/41 PCR Stool Astrovirus (PCR) Stool Campylobacter PCR Stool Cryptosporidium PCR Stl Sh Tox Pr E STEC PCR Stool E coli O157 PCR Stl Enterotoxigenic E PCR Stool EPEC (PCR) Stool EAEC (PCR) Stl E. histolytica PCR Stool Giardia Lamblia PCR Stl P. shigelloides PCR Stool Salmonella PCR Stool Sapovirus (PCR) Stl Shigella/EIEC PCR St Y.enterocolitica PCR Stool Vibrio (PCR) Stl Vibrio cholerae PCR Stl Norovirus GI/GII PCR C. difficile Tox B Gene 07/31/23 07/31/23 08/01/23 19:33 20:20 06:49 MCV 92.1 MCH 30.3 MCHC 32.9 RDW 15.9 Plt Count 188 D MPV 11.3 Immature Gran % (Auto) 0.6 H Neut % (Auto) 82.1 H Lymph % (Auto) 8.7 L [place] % (Auto) 7.0 Eos % (Auto) 1.2 Baso % (Auto) 0.4 Lymph # (Auto) 0.9 L [place] # (Auto) 0.7 Eos # (Auto) 0.1 Baso # (Auto) 0.0 Abs Immat Gran (auto) 0.06 H Absolute Neuts (auto) 8.2 Absolute Nucleated RBC 0.000 Nucleated RBC % (auto) 0.0 Anion Gap 10 L 10 L Estim Creat Clear Calc 43.6 50.7 Estimated GFR 45 53 POC Glucose 140 H Random Glucose 50 L* 136 H Calcium 10.1 8.4 D Stl C. cayetanensis PCR Stool Rotavirus A PCR Stl Adenov F 40/41 PCR Stool Astrovirus (PCR) Stool Campylobacter PCR Stool Cryptosporidium PCR Stl Sh Tox Pr E STEC PCR Stool E coli O157 PCR Stl Enterotoxigenic E PCR Stool EPEC (PCR) Stool EAEC (PCR) Stl E. histolytica PCR Stool Giardia Lamblia PCR Stl P. shigelloides PCR Stool Salmonella PCR Stool Sapovirus (PCR) Stl Shigella/EIEC PCR St Y.enterocolitica PCR Stool Vibrio (PCR) Stl Vibrio cholerae PCR Stl Norovirus GI/GII PCR C. difficile Tox B Gene 08/01/23 10:45 MCV MCH MCHC RDW Plt Count MPV Immature Gran % (Auto) Neut % (Auto) Lymph % (Auto) [place] % (Auto) Eos % (Auto) Baso % (Auto) Lymph # (Auto) [place] # (Auto) Eos # (Auto) Baso # (Auto) Abs Immat Gran (auto) Absolute Neuts (auto) Absolute Nucleated RBC Nucleated RBC % (auto) Anion Gap Estim Creat Clear Calc Estimated GFR POC Glucose Random Glucose Calcium Stl C. cayetanensis PCR Not Detected Stool Rotavirus A PCR Not Detected Stl Adenov F 40/41 PCR Not Detected Stool Astrovirus (PCR) Not Detected Stool Campylobacter PCR Not Detected Stool Cryptosporidium PCR Not Detected Stl Sh Tox Pr E STEC PCR Not Detected Stool E coli O157 PCR Not applicable Stl Enterotoxigenic E PCR Not Detected Stool EPEC (PCR) Not Detected Stool EAEC (PCR) Not Detected Stl E. histolytica PCR Not Detected Stool Giardia Lamblia PCR Not Detected Stl P. shigelloides PCR Not Detected Stool Salmonella PCR Not Detected Stool Sapovirus (PCR) Not Detected Stl Shigella/EIEC PCR Not Detected St Y.enterocolitica PCR Not Detected Stool Vibrio (PCR) Not Detected Stl Vibrio cholerae PCR Not Detected Stl Norovirus GI/GII PCR Not Detected C. difficile Tox B Gene NEGATIVE Assessment and Plan (1) Metabolic acidosis: Status: Acute (2) Hyponatremia: Status: Acute (3) Acute kidney injury: Status: Acute (4) Diarrhea: Status: Acute (5) Acute hyperkalemia: Status: Acute (6) Acute dehydration: Status: Acute (7) Multifocal pneumonia: Status: Acute Plan [id number] male with history of ILD/pulmonary fibrosis and metastatic colon cancer with liver and lung metastasis on FOLFIRI Avastin following with Dr. Mckee s/p colostomy admitted for further management of BETTYE with hyperkalemia #Acute kidney injury- likely prerenal due to hypovolemia from poor PO intake- improving -Creat 1.64 --> 1.35 (baseline 0.9) -Continue IVF -avoid nephrotoxins -strict I&O -nephro input appreciated #Acute hyperkalemia- 2/2 bettye -K 7.1--> 7.4 -->6.9--> 5.3 -EKG without peaked T waves -hold on addl lokelma per nephro -Continue isotonic fluids per nephro -Monitor on telemetry -Monitor lytes #Acute hyponatremia -due to hypotonic fluid administration -Change fluids wot D5W with 3 amps sodium bicarb -monitor lytes q12h per nephro. Goal is to correct serum sodium at a rate of 0.5-1 millimole per L/hr and not exceed more than 10 millimoles in a 24 hour. -nephro input appreciated #Acute metabolic acidosis -2/2 to bettye -change to isotonic fluids with D5W with 3 amps sodium bicarb at 100ml/hr -follow bmp #Multifocal pneumonia -incidental finding on ct abd pelvis, confirmed with cxr -asymptomatic but given immunocompromised state treat with ceftriaxone and doxy (initiated 08/01) #Acute diarrhea s/p colostomy -cdiff pcr and GI panel negative -ostomy care #Anorexia with moderate malnutrition with protein deficiency -likely 2/2 malignancy -oncology consult. consider megace -add ensure #Metastatic colon cancer with mets to liver and lungs -oncology consult -pain management #ILD/pulmonary fibrosis- 2/2 chemo -stable, no hypoxia DVt prophalaxis- heparin Full code Patient will likely require inpatient stay at least 2 midnights for management of severe hyperkalemia with acute kidney injury requiring aggressive management of potassium levels, IV fluid resuscitation, expert consultation, close monitoring of renal function electrolyte levels, as well as cardiac monitoring Quality Stroke Does the patient have a stroke diagnosis?: No VTE Prior VTE?: No VTE Risk Level:: Medical - moderate - high VTE Device Contraindication: Treatment Not Indicated VTE Drug Contraindication: N/A - Med Ordered
--- NOTE | 2023-08-01 17:13 | P.CDIM_ITS ---
PROVIDER RESPONSE TEXT: To clarify, the appropriate diagnosis supported by the clinical indicators: Hyponatremia QUERY TEXT: PHYSICIAN'S DOCUMENTATION REQUEST Date of Query: 08/01/2023 07:57 AM EST Patient Name: Milind Bustamante Admit Date: 07/31/2023 Dear Luciana Weiss, A review of the medical record indicates additional documentation may be needed. Please review below and update the documentation accordingly. Clinical Indicators: LAB FINDINGS: sodium 128 L H&P: Initial sodium 128, 1 amp of sodium bicarb/D5 drip Based on the above, is there a diagnosis that correlates with these lab findings: Hyponatremia Other Other (explain) Clinically unable to determine (explain) Thank you, Katlin Clement, CCS, CDIS Use of terms such as suspected, likely, concern for, or probable (associated with a specific diagnosi s that is being evaluated, monitored, or treated as if it exists) are acceptable and can be coded in the inpatient se tting, when documented at the time of discharge. Please use your independent medical judgment in providing your response. THIS QUERY IS PART OF THE PERMANENT MEDICAL RECORD
--- NOTE | 2023-08-01 17:15 | P.CDIM_ITS ---
PROVIDER RESPONSE TEXT: To clarify, the appropriate diagnosis supported by the clinical indicators: Hypoglycemia QUERY TEXT: PHYSICIAN'S DOCUMENTATION REQUEST Date of Query: 08/01/2023 08:02 AM EST Patient Name: Milind Bustamante Admit Date: 07/31/2023 Dear Luciana Weiss, A review of the medical record indicates additional documentation may be needed. Please review below and update the documentation accordingly. Clinical Indicators: LAB FINDINGS: H&P - POC glucose was low at 59 given 1 amp d50 Insulin Based on the above, is there a diagnosis that correlates with these lab findings: Hypoglycemia Labs indicate a diagnosis of (please specify) Other (explain) Clinically unable to determine (explain) Thank you, Katlin Clement, CCS, CDIS Use of terms such as suspected, likely, concern for, or probable (associated with a specific diagnosi s that is being evaluated, monitored, or treated as if it exists) are acceptable and can be coded in the inpatient se tting, when documented at the time of discharge. Please use your independent medical judgment in providing your response. THIS QUERY IS PART OF THE PERMANENT MEDICAL RECORD
[2023-08-01] MEDS: cefTRIAXone sodium 1 GM in 0.9 % Sodium Chloride 50 ML IV (17:35)
[2023-08-01] MEDS: Doxycycline Hyclate 100 MG in 0.9 % Sodium Chloride 250 ML 166.67 MG IV (17:48)
[2023-08-01] MEDS: oxyCODONE HCl Immed Release 5 MG TABLET PO (19:58)
[2023-08-01] MEDS: ondansetron HCL 4 MG/2 ML VIAL IVPUSH (22:18)
[2023-08-02 01:00] LABS: Anion Gap 11 (12-20); Blood Urea Nitrogen 28 mg/dL (9-16); Calcium 8.4 mg/dL (8.4-10.2); Carbon Dioxide 25 mmol/L (22-29); Chloride 101 mmol/L (96-108); Estimated Glomerular Filt Rate > 60; Glucose Random 116 mg/dL (60-115); Potassium 6.2 mmol/L (3.3-5.1); Sodium 131 mmol/L (135-145)
[2023-08-02] MEDS: Calcium Gluconate/NaCl,Iso-Osm 2 GM/100 ML PLAST..BAG IV (01:47)
[2023-08-02] MEDS: Insulin Regular, Human 100 UNIT/ML 3 ML VIAL IVPUSH (01:48)
[2023-08-02] MEDS: HYDROmorphone HCl 0.5 MG/0.5 ML SYRINGE IVPUSH ×3 (02:22→14:53)
[2023-08-02 03:16] VITALS: BP 109/52; PULSE 63; RESP 20; TEMP 36.2; O2SAT 96
[2023-08-02] MEDS: Heparin Sodium,Porcine 5,000 UNIT/ML VIAL 5000 UNIT SUBCUT ×2 (06:23→16:54)
[2023-08-02] MEDS: Doxycycline Hyclate 100 MG in 0.9 % Sodium Chloride 250 ML 166.67 MG IV ×2 (06:23→16:54)
[2023-08-02 07:30] LABS: MANUAL DIFF FLAG NO
[2023-08-02 07:40] LABS: Basophils Percent Auto 0.3 % (0-2); Eosinophils Percent Auto 0.2 % (0-4); Hematocrit 29.1 % (42.0-52.0); Hemoglobin 9.7 g/dl (14.0-18.0); Imm Gran Abs Auto 0.08 X10*3/uL (0.00-0.03); Imm Gran Pct Auto 0.7 % (0.0-0.4); Lymphocytes Absolute Auto 0.8 X10*3/uL (1.2-4.9); Lymphocytes Percent Auto 6.9 % (20-40); Mean Corpuscular HGB Conc 33.3 g/dl (31.0-36.0); Mean Corpuscular Hemoglobin 30.7 pg (27.0-33.0); Mean Corpuscular Volume 92.1 fL (80.0-98.0); Mean Platelet Volume 11.7 fL (9.4-12.4); Monocytes Absolute Auto 0.9 X10*3/uL (0.1-1.2); Monocytes Percent Auto 7.7 % (2-11); Neutrophils Absolute Auto 10.2 x10*3/uL (2.0-8.3); Neutrophils Percent Auto 84.2 % (45-73); Platelet Count 192 X10*3/uL (160-400); Red Blood Count 3.16 X10*6/uL (4.60-5.80); Red Cell Distribution Width 15.5 % (11.0-16.0); White Blood Count 12.2 X10*3/uL (4.8-10.8)
[2023-08-02 07:52] LABS: Anion Gap 11 (12-20); Blood Urea Nitrogen 26 mg/dL (9-16); Calcium 8.8 mg/dL (8.4-10.2); Carbon Dioxide 28 mmol/L (22-29); Chloride 97 mmol/L (96-108); Creatinine Clr Calc Pharmacy 57.5; Estimated Glomerular Filt Rate > 60; Glucose Random 110 mg/dL (60-115); Potassium 5.3 mmol/L (3.3-5.1); Sodium 131 mmol/L (135-145)
[2023-08-02 08:00] VITALS: BP 131/65; PULSE 60; RESP 18; TEMP 36.3; O2SAT 98
--- NOTE | 2023-08-02 08:15 | PM.HEMONCPN ---
Medical Summary - Medical Summary Date of Service: 08/02/23 Chief complaint: Headache Primary Care Provider: Jono Headley MD Medical Summary: Metastatic colon cancer diagnosed in October 2018. Presented with abdominal pain, 30 pound weight loss and severe pain. He had abnormal colonoscopy in 2009. He was told he needed a repeat colonoscopy in 5 years but he did not go for testing. CT abdomen/pelvis with IV contrast shows multiple areas of wall thickening in the sigmoid colon as well as thickening and enhancement of cecum, terminal ileum. Long segment of wall thickening of the distal transverse colon and left colon. Enlarged mesenteric and retroperitoneal lymph nodes, multiple liver metastasis and lung metastasis, all of these worrisome for metastatic colorectal malignancy. 11/01/18-Core biopsy of the right liver mass, moderately differentiated adenocarcinoma consistent with colorectal primary. KRAS mutation not detected BRAF mutation not detected. NRAS negative, MSI proficient or MSI stable. He developed bowel obstruction, palliative bypass ileostomy has been performed in November 2018. He started on mFOLFOX/Avastin regimen from 11/27/2018. His last treatment cycle 13 was on 05/14/2019. 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 Repeat CT abdomen/pelvis on 09/18/2019 showed further decrease in size of liver metastasis. He was on maintenance Xeloda 1500 mg p.o. b.i.d. 2 weeks on/1 week off, along with bevacizumab Q 3 weeks starting 10/22/2019 until 12/13/2020. Rising CEA as well as imaging in November 2020 showed evidence of progressive disease. He started irinotecan with bevacizumab from December 2020. Interval History Interval history: Milind still feels rather poorly. He is also complaining of headache and is very upset about the care he is receiving at [facility]. His nurse has not been able to shut off an IV that has been beeping for over an hour. He is not able to rest. He had cough in the past although it is not too bad at this time. No chest pain, nausea, his abdominal pain is better. Review of Systems - Neurologic Denies focal weakness, Denies sensory deficit [facility] Medical History: Medical History (Last Reviewed 08/01/23 @ 10:46 by Daya Paula, PT) Chronic respiratory failure Colon cancer metastasized to liver Colon cancer metastasized to liver ILD (interstitial lung disease) Pulmonary fibrosis Pulmonary nodule Tubular adenoma Family History: Family History (Last Reviewed 07/31/23 @ 17:57 by SANDRO Lowe) Son Cystic fibrosis Brother Esophageal cancer Maternal Aunt Lung cancer Surgical History: Surgical History (Last Reviewed 08/01/23 @ 10:46 by Daya Paula PT) H/O knee surgery Social History: Social History (Last Reviewed 07/31/23 @ 17:57 by SANDRO Lowe) Living Situation History: Household Members: Family Housing: House Do you presently have visiting nurse or other home services: Yes Do you presently have visiting nurse or other home services comment: son s girlfriend is [employer]. Alcohol History Details: 1. How often do you have a drink containing alcohol?: b. Monthly or less 2. How many drinks containing alcohol do you have on a typical day when you are drinking?: a. 1 or 2 3. How often do you have six or more drinks on one occasion?: b. Less than monthly AUDIT-C Alcohol total score: 2 Last drink: Days (ago) Last Drank Other:: over 1 month ago Currently Displaying Signs/Symptoms of Alcohol Withdrawal: No Tobacco History: Patient Tobacco Use Status: Former Tobacco user Tobacco use type: Cigarette Smoked in Last 30 Days: No e-Cigarette/Vaping Use: Former Use Patient Interested in Nicotine Replacement: No Patient Given Instructions on How to Stop Smoking: No Second Hand Smoke Exposure: No Substance Use History: Use of substances other than those prescribed or required for medical reasons: Yes Substance Use Type: Marijuana Substance Use Frequency: Occasionally Last Used Substance: Days (ago) Last Used Substance Other:: stopped marijuana months ago Currently Displaying Signs/Symptoms of Drug Intoxication Withdrawal: No Any prior treatment program specific to substance use: No Domestic Abuse History: Have you been hit, kicked, punched, or otherwise hurt by someone within the past year? If so, by whom?: No Do you feel safe in your current relationship?: Yes Is there a partner from a previous relationship who is making you feel unsafe now?: No Are you made to feel afraid or neglected: No Advance Directives: Advance Directives: Yes Advance Directives Information Provided: No Advance Directives on File: Yes Advance Directives Date on File: 12/12/22 Homicidal Assessment: Do you have thoughts of harming others: None Do you have a plan to hurt others: No Plan Nutrition Assessment: Recently lost weight without trying: Yes How much weight loss: 14-23 pounds Nutrition Risks: Poor intake 0-25% >4 days Occupation Assessmet: service: No Current occupational status: employed Current occupation: [employer] Medications and Allergies Current Medications: Current Medications Acetaminophen (Acetaminophen 325 Mg Tablet) 650 mg PO Q6H PRN PRN Reason: Pain, Mild (Pain Scale 1-3) Last Admin: 08/01/23 06:16 Dose: 650 mg Dextrose (Dextrose 50 % 25 Gm/50 Ml Syringe) 25 gm IVPUSH Q15M PRN; Protocol PRN Reason: per Hypoglycemia Standing Ord. Last Admin: 07/31/23 19:46 Dose: 25 gm Heparin Sodium (Porcine) (Heparin Sodium,Porcine 5,000 Unit/Ml Vial) 5,000 unit SUBCUT Q12H [facility] Last Admin: 08/02/23 06:23 Dose: 5,000 unit Hydromorphone HCl (Hydromorphone Hcl 0.5 Mg/0.5 Ml Syringe) 0.5 mg IVPUSH Q4H PRN; Protocol PRN Reason: Pain, Severe (Pain Scale 7-10) Last Admin: 08/02/23 02:22 Dose: 0.5 mg Sodium Bicarbonate 150 meq/ (Dextrose) 1,000 mls @ 100 mls/hr IV .Q10H [facility] Last Admin: 08/01/23 22:19 Dose: 100 mls/hr Ceftriaxone Sodium 1 gm/ (Sodium Chloride) 50 mls @ 100 mls/hr IV Q24H [facility] Last Infusion: 08/01/23 18:05 Dose: Infused Doxycycline Hyclate 100 mg/ (Sodium Chloride) 250 mls @ 166.67 mls/hr IV Q12H [facility] Last Admin: 08/02/23 06:23 Dose: 166.67 mls/hr Morphine Sulfate (Morphine Sulfate Er 30 Mg Tablet.Er) 30 mg PO Q12H [facility] Last Admin: 08/01/23 21:45 Dose: 30 mg Ondansetron HCl (Ondansetron Hcl 4 Mg/2 Ml Vial) 4 mg IVPUSH Q8H PRN PRN Reason: Nausea and Vomiting Last Admin: 08/01/23 22:18 Dose: 4 mg Oxycodone HCl (Oxycodone Hcl Immed Release 5 Mg Tablet) 5 mg PO Q6H PRN PRN Reason: Pain, Moderate(Pain Scale 4-6) Last Admin: 08/01/23 19:58 Dose: 5 mg Senna (Sennosides 8.6 Mg Tablet) 17.2 mg PO BEDTIME PRN PRN Reason: Constipation Sodium Chloride (0.9 % Sodium Chloride Flush 3 Ml Syringe) 3 ml IVFLUSH QSHIFT [facility] Last Admin: 08/01/23 23:19 Dose: Not Given Home Medications Medication Instructions Recorded Confirmed Type acetaminophen 650 mg 650 mg PO Q6H PRN Pain 08/04/22 07/31/23 History tablet,extended release omeprazole 40 mg capsule,delayed 40 mg PO DAILY@0630 08/04/22 07/31/23 History release Allergies Allergy/AdvReac Type Severity Reaction Status Date / Time prednisone [PREDNISONE] AdvReac Intermediate Psychosis Verified 03/05/23 08:51 Exam Vital signs: Vital Signs Temp 97.4 F 08/02/23 08:00 Pulse 60 08/02/23 08:00 Resp 18 08/02/23 08:00 BP 131/65 08/02/23 08:00 Pulse Ox 98 08/02/23 08:00 O2 Del Method Room Air 08/02/23 08:00 Intake & Output 08/01/23 08/02/23 08/02/23 18:59 06:59 18:59 Intake Total 2335 / 3685 1350 / 3685 Output Total 300 / 300 Balance 2035 / 3385 1350 / 3385 Intake: Intake, Oral Amount 820 / 820 Intake, IV Amount 1515 / 2865 1350 / 2865 Calcium Gluconate/NaCl,Iso-Osm 100 / 100 2 gm In 100 ml @ 50 mls/hr IV ONCE ONE Rx#:[id number] Doxycycline Hyclate 100 mg In 0 250 / 250 .9 % Sodium Chloride 250 ml @ 166.67 mls/hr IV Q12H [facility] Rx#: [id number] Sodium Bicarbonate 8.4% 150 meq 1000 / 2000 1000 / 2000 In Dextrose 5 % 850 ml @ 100 mls/hr IV .Q10H [facility] Rx#: [id number] cefTRIAXone sodium 1 gm In 0.9 50 / 50 % Sodium Chloride 50 ml @ 100 mls/hr IV Q24H [facility] Rx#: [id number] 0.9 % Sodium Chloride 1,000 ml 465 / 465 @ 100 mls/hr IVCONT .Q10H [facility] Rx#:[id number] Output: Output, Stool Amount 300 / 300 Other: Breakfast % Eaten 75% Lunch % Eaten 100% Number of Unmeasured Voids 2 Number of Bowel Movements 1 Urine Bathroom Bathroom Urine Color Yellow Last Bowel Movement 08/01/23 08/02/23 Stool Ostomy Weight 65.771 kg BMI result Body Mass Index 20.2 - Constitutional Present: no acute distress, cachectic, chronically ill appearing - Routine Respiratory Exam Present: rhonchi. Absent: accessory muscle use - Routine Cardiovascular Exam Cardiovascular: Present: S1, S2 - Routine Abdominal Exam Absent: mass Data - Labs CBC & Chem 7: 08/02/23 06:52 08/02/23 06:52 Labs: Laboratory Last Values WBC 12.2 X10*3/uL (4.8-10.8) H 08/02/23 06:52 RBC 3.16 X10*6/uL (4.60-5.80) L 08/02/23 06:52 Hgb 9.7 g/dl (14.0-18.0) L 08/02/23 06:52 Hct 29.1 % (42.0-52.0) L 08/02/23 06:52 MCV 92.1 fL (80.0-98.0) 08/02/23 06:52 MCH 30.7 pg (27.0-33.0) 08/02/23 06:52 MCHC 33.3 g/dl (31.0-36.0) 08/02/23 06:52 RDW 15.5 % (11.0-16.0) 08/02/23 06:52 Plt Count 192 X10*3/uL (160-400) 08/02/23 06:52 MPV 11.7 fL (9.4-12.4) 08/02/23 06:52 Immature Gran % (Auto) 0.7 % (0.0-0.4) H 08/02/23 06:52 Neut % (Auto) 84.2 % (45-73) H 08/02/23 06:52 Lymph % (Auto) 6.9 % (20-40) L 08/02/23 06:52 [place] % (Auto) 7.7 % (2-11) 08/02/23 06:52 Eos % (Auto) 0.2 % (0-4) 08/02/23 06:52 Baso % (Auto) 0.3 % (0-2) 08/02/23 06:52 Lymph # (Auto) 0.8 X10*3/uL (1.2-4.9) L 08/02/23 06:52 [place] # (Auto) 0.9 X10*3/uL (0.1-1.2) 08/02/23 06:52 Eos # (Auto) 0.0 X10*3/uL (0.0-0.4) 08/02/23 06:52 Baso # (Auto) 0.0 X10*3/uL (0.0-0.2) 08/02/23 06:52 Abs Immat Gran (auto) 0.08 X10*3/uL (0.00-0.03) H 08/02/23 06:52 Absolute Neuts (auto) 10.2 x10*3/uL (2.0-8.3) H 08/02/23 06:52 Absolute Nucleated RBC 0.000 X10*3/uL (0.0-0.012) 08/02/23 06:52 Nucleated RBC % (auto) 0.0 /100WBC (0.0-0.2) 08/02/23 06:52 Sodium 131 mmol/L (135-145) L 08/02/23 06:52 Potassium 5.3 mmol/L (3.3-5.1) H 08/02/23 06:52 Chloride 97 mmol/L (96-108) 08/02/23 06:52 Carbon Dioxide 28 mmol/L (22-29) 08/02/23 06:52 Anion Gap 11 (12-20) L 08/02/23 06:52 BUN 26 mg/dL (9-16) H 08/02/23 06:52 Creatinine 1.19 mg/dL (0.5-1.4) 08/02/23 06:52 Estim Creat Clear Calc 57.5 08/02/23 06:52 Estimated GFR > 60 08/02/23 06:52 POC Glucose 140 mg/dL (60-115) H 07/31/23 20:20 Random Glucose 110 mg/dL (60-115) 08/02/23 06:52 Calcium 8.8 mg/dL (8.4-10.2) 08/02/23 06:52 Stl C. cayetanensis PCR Not Detected (Not Detect.) 08/01/23 10:45 Stool Rotavirus A PCR Not Detected (Not Detect.) 08/01/23 10:45 Stl Adenov F 40/41 PCR Not Detected (Not Detect.) 08/01/23 10:45 Stool Astrovirus (PCR) Not Detected (Not Detect.) 12 10:45 Stool Campylobacter PCR Not Detected (Not Detect.) 08/01/23 10:45 Stool Cryptosporidium PCR Not Detected (Not Detect.) 08/01/23 10:45 Stl Sh Tox Pr E STEC PCR Not Detected (Not Detect.) 08/01/23 10:45 Stool E coli O157 PCR Not applicable (Not Detect.) 08/01/23 10:45 Stl Enterotoxigenic E PCR Not Detected (Not Detect.) 08/01/23 10:45 Stool EPEC (PCR) Not Detected (Not Detect.) 08/01/23 10:45 Stool EAEC (PCR) Not Detected (Not Detect.) 08/01/23 10:45 Stl E. histolytica PCR Not Detected (Not Detect.) 08/01/23 10:45 Stool Giardia Lamblia PCR Not Detected (Not Detect.) 08/01/23 10:45 Stl P. shigelloides PCR Not Detected (Not Detect.) 08/01/23 10:45 Stool Salmonella PCR Not Detected (Not Detect.) 08/01/23 10:45 Stool Sapovirus (PCR) Not Detected (Not Detect.) 08/01/23 10:45 Stl Shigella/EIEC PCR Not Detected (Not Detect.) 08/01/23 10:45 St Y.enterocolitica PCR Not Detected (Not Detect.) 08/01/23 10:45 Stool Vibrio (PCR) Not Detected (Not Detect.) 08/01/23 10:45 Stl Vibrio cholerae PCR Not Detected (Not Detect.) 08/01/23 10:45 Stl Norovirus GI/GII PCR Not Detected (Not Detect.) 08/01/23 10:45 C. difficile Tox B Gene NEGATIVE (Negative) 08/01/23 10:45 - Imaging Radiologist's impression: ITS Impressions Renal Ultrasound 07/31/23 11:32 IMPRESSION: No significant finding within the kidneys. Abdomen/Pelvis CT 07/31/23 18:16 IMPRESSION: Stable exam from March 2023 Severe emphysematous changes at the lung bases. Interval increase in multifocal bilateral peripheral nodular opacities at the lung bases. Infectious, inflammatory and neoplastic process should be considered. Fleischner guidelines were followed. Chest X-Ray 08/01/23 13:38 IMPRESSION: Worsening of pulmonary opacities, left greater than right, as described above. Findings are suggestive of multifocal pneumonia. Assessment and Plan Patient Active problem list reviewed?: Yes (1) Colon cancer metastasized to liver Status: Chronic Assessment and plan: 1. This is a 63-year-old gentleman, with metastatic colon carcinoma, with liver and lung metastases. Biopsy of the liver lesion, Moderately differentiated adenocarcinoma. He developed bowel obstruction, palliative bypass ileostomy has been performed in November 2018. He has been receiving second-line palliative chemotherapy with FOLFIRI/Avastin since August 2022. He was doing well until he presented with URI symptoms that was diagnosed as RSV infection in the beginning of July 2023. Since then, he has been declining with poor appetite, decreased oral intake and weight loss. Blood work in the office yesterday revealed acute kidney injury and hyperkalemia with potassium level of 7.4. A stat CT abdomen did not reveal renal obstruction or progressive malignancy. He seems to be responding with IV hydration. Potassium level has come down with hydration and potassium binders. His renal function is also improving and he feels better. CT abdomen/pelvis comments on increase bilateral peripheral nodular opacities at lung bases. Recommend chest x-ray. 2. Chest x-ray shows multifocal pneumonia. He was diagnosed with RSV beginning of the month. He is now on antibiotics, ceftriaxone. - Time Spent With Patient Time Spent with Patient (in minutes): 10
[2023-08-02] MEDS: Morphine Sulfate ER 30 MG TABLET.ER PO ×2 (09:20→22:45)
[2023-08-02] MEDS: ondansetron HCL 4 MG/2 ML VIAL IVPUSH (09:20)
[2023-08-02] MEDS: 0.9 % Sodium Chloride Flush 3 ML SYRINGE IVFLUSH ×2 (09:21→16:55)
[2023-08-02] MEDS: Sodium Bicarbonate 8.4% 150 MEQ in Dextrose 5 % 850 ML 100 MEQ IV (09:22)
--- NOTE | 2023-08-02 10:18 | PM.PNNEP ---
Subjective Subjective Date of Service: 08/03/23 Interval history: Seen in follow up for BETTYE, hyperkalemia, anorexia Interval history: pt reports headache, low back pain. afebrile, VSS. Creat/potassium improving Physical Exam Vital Signs: Vital Signs: Last Vital Signs Temp 97.4 F 08/02/23 08:00 Pulse 60 08/02/23 08:00 Resp 18 08/02/23 08:00 BP 131/65 08/02/23 08:00 Pulse Ox 98 08/02/23 08:00 O2 Del Method Room Air 08/02/23 08:00 BMI result Body Mass Index 20.2 Const: General: comfortable Nutritional Appearance: well nourished Orientation/consciousness: patient oriented x3 HEENT: Head: No normal to inspection Mouth: moist mucous membranes Neck: Neck: Yes supple and Yes no JVD Resp: Auscultation: clear to auscultation bilaterally, no rales and rub present Cardio: Jugular venous distension: no JVD Palpation: no palpable S3 and no palpable S4 Heart sounds: no rubs GI: Inspection: Yes other (Colostomy bag in place) Palpation (GI): Soft to palpation and nontender Percussion: No Fluid wave present : General: Yes no CVA tenderness Back/Spine/Pelvis: Back: no CVA tenderness Skin: General skin exam: no rashes or lesions noted Neuro: General: patient oriented x3 Extrem: General: Yes no pedal edema and No clubbing Objective Data Labs 08/03/23 07:39 08/03/23 07:39 Labs: Laboratory Results - last 24 hr 08/01/23 08/02/23 08/02/23 10:45 00:27 06:52 WBC 12.2 H RBC 3.16 L Hgb 9.7 L Hct 29.1 L MCV 92.1 MCH 30.7 MCHC 33.3 RDW 15.5 Plt Count 192 MPV 11.7 Immature Gran % (Auto) 0.7 H Neut % (Auto) 84.2 H Lymph % (Auto) 6.9 L [place] % (Auto) 7.7 Eos % (Auto) 0.2 Baso % (Auto) 0.3 Lymph # (Auto) 0.8 L [place] # (Auto) 0.9 Eos # (Auto) 0.0 Baso # (Auto) 0.0 Abs Immat Gran (auto) 0.08 H Absolute Neuts (auto) 10.2 H Absolute Nucleated RBC 0.000 Nucleated RBC % (auto) 0.0 Sodium 131 L 131 L Potassium 6.2 H* 5.3 H Chloride 101 97 Carbon Dioxide 25 28 Anion Gap 11 L 11 L BUN 28 H 26 H Creatinine 1.20 1.19 Estim Creat Clear Calc 57.0 57.5 Estimated GFR > 60 > 60 Random Glucose 116 H 110 Calcium 8.4 8.8 Stl C. cayetanensis PCR Not Detected Stool Rotavirus A PCR Not Detected Stl Adenov F 40/41 PCR Not Detected Stool Astrovirus (PCR) Not Detected Stool Campylobacter PCR Not Detected Stool Cryptosporidium PCR Not Detected Stl Sh Tox Pr E STEC PCR Not Detected Stool E coli O157 PCR Not applicable Stl Enterotoxigenic E PCR Not Detected Stool EPEC (PCR) Not Detected Stool EAEC (PCR) Not Detected Stl E. histolytica PCR Not Detected Stool Giardia Lamblia PCR Not Detected Stl P. shigelloides PCR Not Detected Stool Salmonella PCR Not Detected Stool Sapovirus (PCR) Not Detected Stl Shigella/EIEC PCR Not Detected St Y.enterocolitica PCR Not Detected Stool Vibrio (PCR) Not Detected Stl Vibrio cholerae PCR Not Detected Stl Norovirus GI/GII PCR Not Detected C. difficile Tox B Gene NEGATIVE Procedures Date of Service Date of Service: 08/03/23 Assessment & Plan Assessment and plan (1) Acute kidney injury: Status: Acute (2) Acute hyperkalemia: Status: Acute (3) Hyponatremia: Status: Acute (4) Metabolic acidosis: Status: Acute Plan 62-year-old man with acute kidney injury most likely due to hypoperfusion from poor p.o. intake in the setting of chemotherapy. CT scan did not reveal any evidence of obstructive uropathy. Based on the clinical picture and urinary findings I do not believe he has any active glomerulonephritis or interstitial disease at this time. Hyponatremia is due to the infusion of hypotonic fluids. Resolving Rate of correction acceptable Severe metabolic acidosis with hyperkalemia both due to underlying acute kidney injury. Metabolic acidosis stands corrected Recommendations IV hydration for 1 more day I would use isotonic fluids. Change to NS Check serum electrolytes every 24 hours. Low K diet Terrenceva PRN if K > 5.3 She will follow along with the team. Thank you Time Spent With Patient Time: Total time managing care of this patient today ____ minutes. Progress Note: Quality Stroke Does the patient have a stroke diagnosis?: No
[2023-08-02] MEDS: Sodium Zirconium Cyclosilicate 10 GM POWD.PACK PO (11:33)
[2023-08-02] MEDS: oxyCODONE HCl Immed Release 5 MG TABLET PO ×2 (11:34→19:26)
[2023-08-02 11:35] VITALS: BP 134/64; PULSE 83; RESP 18; TEMP 36.2; O2SAT 96
--- NOTE | 2023-08-02 11:57 | HO.OSTOMY ---
Ostomy Consult: Follow up 63yr old male admitted to [facility] on?07/31/23 17:10 - See progress notes and H&P for detailed history. Ostomy consult placed for peristomal irritation and pt reported burning. Arrival to bedside patient is agreeable to assessment and pouch change. Pouch removed with out complication - peristomal tissue is noted for well defined purple pigmentation - mild tenderness noted and scattered areaa of partial thickness tissue loss secondary to MASD. We discussed his current steps with ostomy pouch change. He reports he changes approximately every 3 days and more frequently when needed. He reports he washes his skin with warm water and barrier wipes. He applies barriers wipes followed by powder and then pouch application. We discussed the benefits of powder and the purpose of powder and being in contact with the wounds. The powder absorbs excess moisture and aids in autolytic healing - the barrier sprays is used to seal in the powder to allow for better adherence of the pouch. He reports understanding and is willing to try powder followed by barrier going forward. We discussed the purple pigmentation and he reports he has had this for sometime and he has mild tenderness at times but he feels that is related to MASD. The purple pigmentation is a suspected sign of [employer] which does not need topical intervention but does indicate underlying condition changes such as liver cirrhosis or portal hypertension. TT to SANDRO Lowe of findings and to determine if further investigation is needed at this time. Todays pouch change included adding a barrier ring to aid in moisture absorption since pt still remains with liquid stool. Routine Pouching Instructions: 1. Remove pouch every 3-4 days. Change sooner if you notice any leaking. ?Do not reinforce with tape. 2. Clean skin around stoma with warm water and soft cloth. ?Avoid using soaps or lotions. ?Discontinue Adhesive remover if used. *Soaps can contain aloes/lanolins/extracts which leave film on skin that will interfere with pouch adherence 3. Pat skin dry. 4. For the red and irritated skin dust with Stomahesive powder, dust off all excess powder, then seal with no sting barrier wipe, allow to dry. 5. Prepare products; Cut ostomy pouch - Template left at bedside. 6. Apply Barrier Ring at this time. 7. Remove adhesive paper backing from back of pouch wafer apply Gentle Warm pressure to seal the wafer to his skin. ? Re-consult wound care Nurse for pouching concerns or difficulties.
--- NOTE | 2023-08-02 14:32 | HO.PM.IMPN ---
Subjective Subjective Date of Service: 08/02/23 Interval History: Seen in follow up for BETTYE, hyperkalemia, anorexia Interval history: pt reports headache, uncontrolled abd and low back pain. afebrile, VSS. Creat improving. Developed worsening hyperkalemia last night, improved to 5.3 this morning Review of Systems Review of Systems: Yes all other systems are reviewed and are negative Physical Exam Vital Signs: Vital Signs: Last Vital Signs Temp 97.2 F 08/02/23 11:35 Pulse 83 08/02/23 11:35 Resp 18 08/02/23 11:35 BP 134/64 08/02/23 11:35 Pulse Ox 96 08/02/23 11:35 O2 Del Method Room Air 08/02/23 11:35 BMI result Body Mass Index 20.2 Constitutional - Awake and Alert, No apparent distress Eyes - PERRLA, EOMI Cardiovascular - S1S2, RRR, No edema Respiratory - Normal lung expansion, Normal respiratory effort, No respiratory distress, CTA bilaterally Gastrointestinal - mild diffuse ttp without guarding, ostomy draining yellow/brown watery output with caput medusae stoma noted when bag removed. ND; +BS; No rebound or guarding Extremities - no calf tenderness bilaterally, no swelling Skin - Warm/Dry Neurological - Alert & oriented x3 Psychological - Appropriate affect Objective Data Active Medications Acetaminophen (Acetaminophen 325 Mg Tablet) 650 mg PO Q6H PRN PRN Reason: Pain, Mild (Pain Scale 1-3) Last Admin: 08/01/23 06:16 Dose: 650 mg Documented By: INOCENCIO Dextrose (Dextrose 50 % 25 Gm/50 Ml Syringe) 25 gm IVPUSH Q15M PRN; Protocol PRN Reason: per Hypoglycemia Standing Ord. Last Admin: 07/31/23 19:46 Dose: 25 gm Documented By: ARIELLE Heparin Sodium (Porcine) (Heparin Sodium,Porcine 5,000 Unit/Ml Vial) 5,000 unit SUBCUT Q12H [facility] Last Admin: 08/02/23 06:23 Dose: 5,000 unit Documented By: INOCENCIO Hydromorphone HCl (Hydromorphone Hcl 0.5 Mg/0.5 Ml Syringe) 0.5 mg IVPUSH Q3H PRN; Protocol PRN Reason: Pain, Severe (Pain Scale 7-10) Ceftriaxone Sodium 1 gm/ (Sodium Chloride) 50 mls @ 100 mls/hr IV Q24H [facility] Last Infusion: 08/01/23 18:05 Dose: Infused Documented By: IVONNE Doxycycline Hyclate 100 mg/ (Sodium Chloride) 250 mls @ 166.67 mls/hr IV Q12H [facility] Last Infusion: 08/02/23 11:19 Dose: Infused Documented By: ANGELIQUE Morphine Sulfate (Morphine Sulfate Er 30 Mg Tablet.Er) 30 mg PO Q12H [facility] Last Admin: 08/02/23 09:20 Dose: 30 mg Documented By: ANGELIQUE Ondansetron HCl (Ondansetron Hcl 4 Mg/2 Ml Vial) 4 mg IVPUSH Q8H PRN PRN Reason: Nausea and Vomiting Last Admin: 08/02/23 09:20 Dose: 4 mg Documented By: ANGELIQUE Oxycodone HCl (Oxycodone Hcl Immed Release 5 Mg Tablet) 5 mg PO Q6H PRN PRN Reason: Pain, Moderate(Pain Scale 4-6) Last Admin: 08/02/23 11:34 Dose: 5 mg Documented By: ANGELIQUE Senna (Sennosides 8.6 Mg Tablet) 17.2 mg PO BEDTIME PRN PRN Reason: Constipation Sodium Chloride (0.9 % Sodium Chloride Flush 3 Ml Syringe) 3 ml IVFLUSH QSHIFT [facility] Last Admin: 08/02/23 09:21 Dose: 3 ml Documented By: ANGELIQUE Labs 08/02/23 06:52 08/02/23 06:52 Labs: Laboratory Results - last 24 hr 08/02/23 08/02/23 00:27 06:52 MCV 92.1 MCH 30.7 MCHC 33.3 RDW 15.5 Plt Count 192 MPV 11.7 Immature Gran % (Auto) 0.7 H Neut % (Auto) 84.2 H Lymph % (Auto) 6.9 L [place] % (Auto) 7.7 Eos % (Auto) 0.2 Baso % (Auto) 0.3 Lymph # (Auto) 0.8 L [place] # (Auto) 0.9 Eos # (Auto) 0.0 Baso # (Auto) 0.0 Abs Immat Gran (auto) 0.08 H Absolute Neuts (auto) 10.2 H Absolute Nucleated RBC 0.000 Nucleated RBC % (auto) 0.0 Anion Gap 11 L 11 L Estim Creat Clear Calc 57.0 57.5 Estimated GFR > 60 > 60 Random Glucose 116 H 110 Calcium 8.4 8.8 Assessment and Plan (1) Metabolic acidosis: Status: Acute (2) Hyponatremia: Status: Acute (3) Acute kidney injury: Status: Acute (4) Diarrhea: Status: Acute (5) Acute hyperkalemia: Status: Acute (6) Acute dehydration: Status: Acute (7) Multifocal pneumonia: Status: Acute Plan [id number] male with history of ILD/pulmonary fibrosis and metastatic colon cancer with liver and lung metastasis on FOLFIRI Avastin following with Dr. Mckee s/p colostomy admitted for further management of BETTYE with hyperkalemia #Acute kidney injury- likely prerenal due to hypovolemia from poor PO intake- resolved -Creat 1.19 -Continue IVF x 24 hours per nephrology -avoid nephrotoxins -strict I&O -nephro input appreciated #Acute hyperkalemia- 2/2 bettye -K 7.1--> 7.4 -->6.9--> 5.3 -EKG without peaked T waves -Arakelma prn if K.5.3 -Continue ivf x24 hours -Monitor on telemetry -Monitor lytes #Acute hyponatremia -due to hypotonic fluid administration -DC sodium bicarb/d5w. Continue NS x24 hours -nephro input appreciated #Acute metabolic acidosis -2/2 to bettye -change to isotonic fluids with D5W with 3 amps sodium bicarb at 100ml/hr -follow bmp #?Multifocal pneumonia -incidental finding on ct abd pelvis with question of infiltrates being neoplastic, inflammatory, or infectious. -CXR showed multi focal pneumonia and pt initiated on ceftriaxone and doxy (initiated 08/01), though asymptomatic, afebrile -confirm dx with ct chest #Acute diarrhea s/p colostomy -cdiff pcr and GI panel negative, likely 2/2 to lack of solid food -ostomy care- -ostomy site- caput medusae stoma- general surgery consult #Anorexia with moderate malnutrition with protein deficiency -likely 2/2 malignancy -oncology consult. consider megace -add ensure #Metastatic colon cancer with mets to liver and lungs -oncology consult -pain management- pain uncontrolled. INcrease dilaudid to 1mg q3h. COntinue ms contin and oxycodine #ILD/pulmonary fibrosis- 2/2 chemo -stable, no hypoxia DVt prophalaxis- heparin Full code Patient will likely require ongoing inpatient stay at least 2 midnights for management of hyperkalemia with acute kidney injury requiring aggressive management of potassium levels, IV fluid resuscitation, expert consultation, close monitoring of renal function electrolyte levels, as well as cardiac monitoring. Pt also continues to have uncontrolled pain secondary to metastatic cancer requiring IV narcotics and is not tolerating much orally. Quality Stroke Does the patient have a stroke diagnosis?: No VTE Prior VTE?: No VTE Risk Level:: Medical - moderate - high VTE Device Contraindication: Treatment Not Indicated VTE Drug Contraindication: N/A - Med Ordered
[2023-08-02 15:42] VITALS: BP 126/66; PULSE 66; RESP 15; TEMP 37.1; O2SAT 97
[2023-08-02] MEDS: HYDROmorphone HCl 0.5 MG/0.5 ML SYRINGE 1 MG IVPUSH ×2 (16:44→21:15)
[2023-08-02] MEDS: cefTRIAXone sodium 1 GM in 0.9 % Sodium Chloride 50 ML IV (16:50)
[2023-08-02] MEDS: 0.9 % Sodium Chloride 1,000 ML 100 ML IVCONT (16:55)
[2023-08-02 20:00] VITALS: BP 120/83; PULSE 72; RESP 20; TEMP 36.2; O2SAT 95
[2023-08-02 23:29] VITALS: BP 108/59; PULSE 67; RESP 20; TEMP 36.5; O2SAT 67
[2023-08-03] MEDS: HYDROmorphone HCl 0.5 MG/0.5 ML SYRINGE 1 MG IVPUSH ×5 (00:47→13:40)
[2023-08-03] MEDS: 0.9 % Sodium Chloride 1,000 ML 100 ML IVCONT (02:50)
[2023-08-03 03:31] VITALS: BP 110/55; PULSE 65; RESP 20; TEMP 36.1; O2SAT 96
[2023-08-03] MEDS: ondansetron HCL 4 MG/2 ML VIAL IVPUSH ×2 (04:09→11:51)
[2023-08-03] MEDS: Heparin Sodium,Porcine 5,000 UNIT/ML VIAL 5000 UNIT SUBCUT (06:43)
[2023-08-03] MEDS: Doxycycline Hyclate 100 MG in 0.9 % Sodium Chloride 250 ML 166.67 MG IV (06:43)
[2023-08-03] MEDS: oxyCODONE HCl Immed Release 5 MG TABLET PO ×2 (06:50→11:49)
[2023-08-03] MEDS: Morphine Sulfate ER 30 MG TABLET.ER PO (07:37)
[2023-08-03 07:40] VITALS: BP 133/70; PULSE 69; RESP 16; TEMP 36.5; O2SAT 95
[2023-08-03 08:08] LABS: MANUAL DIFF FLAG NO
[2023-08-03 08:10] LABS: Basophils Percent Auto 0.6 % (0-2); Eosinophils Absolute Auto 0.1 X10*3/uL (0.0-0.4); Eosinophils Percent Auto 1.2 % (0-4); Hematocrit 29.2 % (42.0-52.0); Hemoglobin 9.5 g/dl (14.0-18.0); Imm Gran Abs Auto 0.03 X10*3/uL (0.00-0.03); Imm Gran Pct Auto 0.5 % (0.0-0.4); Lymphocytes Absolute Auto 0.8 X10*3/uL (1.2-4.9); Lymphocytes Percent Auto 11.9 % (20-40); Mean Corpuscular HGB Conc 32.5 g/dl (31.0-36.0); Mean Corpuscular Hemoglobin 30.4 pg (27.0-33.0); Mean Corpuscular Volume 93.3 fL (80.0-98.0); Mean Platelet Volume 11.9 fL (9.4-12.4); Monocytes Absolute Auto 0.7 X10*3/uL (0.1-1.2); Neutrophils Absolute Auto 4.9 x10*3/uL (2.0-8.3); Neutrophils Percent Auto 75.8 % (45-73); Platelet Count 173 X10*3/uL (160-400); Red Blood Count 3.13 X10*6/uL (4.60-5.80); Red Cell Distribution Width 15.8 % (11.0-16.0); White Blood Count 6.5 X10*3/uL (4.8-10.8)
[2023-08-03 08:23] LABS: Anion Gap 11 (12-20); Blood Urea Nitrogen 20 mg/dL (9-16); Calcium 8.5 mg/dL (8.4-10.2); Carbon Dioxide 25 mmol/L (22-29); Chloride 100 mmol/L (96-108); Creatinine Clr Calc Pharmacy 70.6; Estimated Glomerular Filt Rate > 60; Glucose Random 86 mg/dL (60-115); Potassium 4.5 mmol/L (3.3-5.1); Sodium 131 mmol/L (135-145)
--- NOTE | 2023-08-03 10:07 | P.PNNP_ITS ---
Subjective Subjective Date of Service: 08/03/23 Interval history: Seen in follow up for BETTYE, hyperkalemia, anorexia Interval history: pt reports headache, uncontrolled abd and low back pain. afebrile, VSS. Creat improving. Developed worsening hyperkalemia last night, improved to 5.3 this morning Physical Exam 2 Vital Signs: Vital Signs: Last Vital Signs Temp 97.7 F 08/03/23 07:40 Pulse 69 08/03/23 07:40 Resp 16 08/03/23 07:40 BP 133/70 08/03/23 07:40 Pulse Ox 95 08/03/23 07:40 O2 Del Method Room Air 08/03/23 07:40 O2 Flow Rate 98 08/02/23 23:29 BMI result Body Mass Index 20.2 Const: General: comfortable Nutritional Appearance: well nourished O rientation/consciousness: patient oriented x3 HEENT: Head: No normal to inspection Mouth: moist mucous membranes Neck: Neck: Yes supple and Yes no JVD Resp: Auscultation: clear to auscultation bilaterally, no rales and rub present Cardio: Jugular venous distension: no JVD Palpation: no palpable S3 and no palpable S4 Heart sounds: no rubs GI: Inspection: Yes other (Colostomy bag in place) Palpation (GI): Soft to palpation and nontender Percussion: No Fluid wave present : General: Yes no CVA tenderness Back/Spine/Pelvis: Back: no CVA tenderness Skin: General skin exam: no rashes or lesions noted Neuro: General: patient oriented x3 Extrem: General: Yes no pedal edema and No clubbing Objective Data Labs 08/03/23 07:39 08/03/23 07:39 Labs: Laboratory Results - last 24 hr 08/03/23 07:39 WBC 6.5 RBC 3.13 L Hgb 9.5 L Hct 29.2 L MCV 93.3 MCH 30.4 MCHC 32.5 RDW 15.8 Plt Count 173 MPV 11.9 Immature Gran % (Auto) 0.5 H Neut % (Auto) 75.8 H Lymph % (Auto) 11.9 L [place] % (Auto) 10.0 Eos % (Auto) 1.2 Baso % (Auto) 0.6 Lymph # (Auto) 0.8 L [place] # (Auto) 0.7 Eos # (Auto) 0.1 Baso # (Auto) 0.0 Abs Immat Gran (auto) 0.03 Absolute Neuts (auto) 4.9 Absolute Nucleated RBC 0.000 Nucleated RBC % (auto) 0.0 Sodium 131 L Potassium 4.5 Chloride 100 Carbon Dioxide 25 Anion Gap 11 L BUN 20 H Creatinine 0.97 Estim Creat Clear Calc 70.6 Estimated GFR > 60 Random Glucose 86 Calcium 8.5 Microbiology Microbiology Results: Microbiology 08/02/23 14:06 Sputum - Expectorated Gram Stain - Final 08/02/23 14:06 Sputum - Expectorated Sputum Culture - Final 08/02/23 00:27 Blood - Venous Blood Culture - Preliminary No growth after 24 hours. 08/02/23 00:27 Blood - Venous Blood Culture - Preliminary No growth after 24 hours. Procedures Date of Service Date of Service: 08/03/23 Assessment & Plan Assessment and plan (1) Acute kidney injury: Status: Acute (2) Acute hyperkalemia: Status: Acute (3) Hyponatremia: Status: Acute (4) Metabolic acidosis: Status: Acute Plan 62-year-old man with acute kidney injury most likely due to hypoperfusion from poor p.o. intake in the setting of chemotherapy. CT scan did not reveal any evidence of obstructive uropathy. Based on the clinical picture and urinary findings I do not believe he has any active glomerulonephritis or interstitial disease at this time. Hyponatremia is due to the infusion of hypotonic fluids. Resolving Rate of correction acceptable Severe metabolic acidosis with hyperkalemia both due to underlying acute kidney injury. Metabolic acidosis stands corrected Recommendations Can discontinue IV fluids Low K diet Lokelma PRN if K > 5.3 DC plan She will follow along with the team as needed. Thank Time Spent With Patient Time: Total time managing care of this patient today ____ minutes. Progress Note: Quality Stroke Does the patient have a stroke diagnosis?: No
--- NOTE | 2023-08-03 10:33 | P.CONGS_ITS ---
History of Present Illness Consult details Consult date: 08/03/23 Narrative: Patient is an unfortunate 63-year-old male with advanced metastatic colon cancer. Surgical consult for ostomy appliance issues. Patient was seen by ostomy nurse to has given patient instructions and appropriately fitted his ostomy appliance. . Patient is tolerating his diet and having ostomy output. [facility] Past Medical History Medical History Pulmonary nodule Colon cancer metastasized to liver Pulmonary fibrosis ILD (interstitial lung disease) Chronic respiratory failure Tubular adenoma Colon cancer metastasized to liver Family History Family History Son Cystic fibrosis Brother Esophageal cancer Maternal Aunt Lung cancer Surgical History Surgical History H/O knee surgery Social History Social History Household Members: Family Housing: House Do you presently have visiting nurse or other home services: Yes (son s girlfriend is [employer].) Patient Tobacco Use Status: Former Tobacco user Tobacco use type: Cigarette Smoked in Last 30 Days: No e-Cigarette/Vaping Use: Former Use Patient Interested in Nicotine Replacement: No Patient Given Instructions on How to Stop Smoking: No Second Hand Smoke Exposure: No Use of substances other than those prescribed or required for medical reasons: Yes Substance Use Type: Marijuana Substance Use Frequency: Occasionally Last Used Substance: Days (ago) Last Used Substance Other:: stopped marijuana months ago Currently Displaying Signs/Symptoms of Drug Intoxication Withdrawal: No Any prior treatment program specific to substance use: No Have you been hit, kicked, punched, or otherwise hurt by someone within the past year? If so, by whom?: No Do you feel safe in your current relationship?: Yes Is there a partner from a previous relationship who is making you feel unsafe now?: No Are you made to feel afraid or neglected: No Advance Directives: Yes Advance Directives Information Provided: No Advance Directives on File: Yes Advance Directives Date on File: 12/12/22 Do you have thoughts of harming others: None Do you have a plan to hurt others: No Plan Recently lost weight without trying: Yes How much weight loss: 14-23 pounds Nutrition Risks: Poor intake 0-25% >4 days service: No Current occupational status: employed Current occupation: [employer] Allergies Allergy/AdvReac Type Severity Reaction Status Date / Time prednisone [PREDNISONE] AdvReac Intermediate Psychosis Verified 03/05/23 08:51 Active Medications: Current Medications Acetaminophen (Acetaminophen 325 Mg Tablet) 650 mg PO Q6H PRN PRN Reason: Pain, Mild (Pain Scale 1-3) Last Admin: 08/01/23 06:16 Dose: 650 mg Dextrose (Dextrose 50 % 25 Gm/50 Ml Syringe) 25 gm IVPUSH Q15M PRN; Protocol PRN Reason: per Hypoglycemia Standing Ord. Last Admin: 07/31/23 19:46 Dose: 25 gm Heparin Sodium (Porcine) (Heparin Sodium,Porcine 5,000 Unit/Ml Vial) 5,000 unit SUBCUT Q12H [facility] Last Admin: 08/03/23 06:43 Dose: 5,000 unit Hydromorphone HCl (Hydromorphone Hcl 0.5 Mg/0.5 Ml Syringe) 1 mg IVPUSH Q3H PRN; Protocol PRN Reason: Pain, Severe (Pain Scale 7-10) Last Admin: 08/03/23 10:26 Dose: 1 mg Ceftriaxone Sodium 1 gm/ (Sodium Chloride) 50 mls @ 100 mls/hr IV Q24H [facility] Last Infusion: 08/02/23 17:52 Dose: Infused Doxycycline Hyclate 100 mg/ (Sodium Chloride) 250 mls @ 166.67 mls/hr IV Q12H [facility] Last Infusion: 08/03/23 10:22 Dose: Infused Morphine Sulfate (Morphine Sulfate Er 30 Mg Tablet.Er) 30 mg PO Q12H [facility] Last Admin: 08/03/23 07:37 Dose: 30 mg Ondansetron HCl (Ondansetron Hcl 4 Mg/2 Ml Vial) 4 mg IVPUSH Q8H PRN PRN Reason: Nausea and Vomiting Last Admin: 08/03/23 04:09 Dose: 4 mg Oxycodone HCl (Oxycodone Hcl Immed Release 5 Mg Tablet) 5 mg PO Q6H PRN PRN Reason: Pain, Moderate(Pain Scale 4-6) Last Admin: 08/03/23 06:50 Dose: 5 mg Senna (Sennosides 8.6 Mg Tablet) 17.2 mg PO BEDTIME PRN PRN Reason: Constipation Sodium Chloride (0.9 % Sodium Chloride Flush 3 Ml Syringe) 3 ml IVFLUSH QSHIFT [facility] Last Admin: 08/03/23 10:22 Dose: Not Given Home Medications Medication Instructions Recorded Confirmed Last Taken Type acetaminophen 650 mg 650 mg PO Q6H PRN Pain 08/04/22 07/31/23 Unknown History tablet,extended release omeprazole 40 mg capsule,delayed 40 mg PO DAILY@0630 08/04/22 07/31/23 07/31/23 History release Physical Exam 2 Vital Signs: Vital Signs: Last Vital Signs Temp 97.7 F 08/03/23 07:40 Pulse 69 08/03/23 07:40 Resp 16 08/03/23 07:40 BP 133/70 08/03/23 07:40 Pulse Ox 95 08/03/23 07:40 O2 Del Method Room Air 08/03/23 07:40 O2 Flow Rate 98 08/02/23 23:29 BMI result Body Mass Index 20.2 Const: Other: Very thin cachectic appearing male. GI: Other: Abdomen scaphoid, soft. Left lower quadrant ostomy functioning well. No obvious leak or skin issues. Results Labs 08/03/23 07:39 08/03/23 07:39 Labs: Abnormal lab results 08/03/23 Range/Units 07:39 RBC 3.13 L (4.60-5.80) X10*6/uL Hgb 9.5 L (14.0-18.0) g/dl Hct 29.2 L (42.0-52.0) % Immature Gran % (Auto) 0.5 H (0.0-0.4) % Neut % (Auto) 75.8 H (45-73) % Lymph % (Auto) 11.9 L (20-40) % Lymph # (Auto) 0.8 L (1.2-4.9) X10*3/uL Sodium 131 L (135-145) mmol/L Anion Gap 11 L (12-20) BUN 20 H (9-16) mg/dL Short CBC 08/03/23 Range/Units 07:39 WBC 6.5 (4.8-10.8) X10*3/uL Hgb 9.5 L (14.0-18.0) g/dl Hct 29.2 L (42.0-52.0) % Plt Count 173 (160-400) X10*3/uL BMP 08/03/23 07:39 Sodium 131 L Potassium 4.5 Chloride 100 Carbon Dioxide 25 BUN 20 H Creatinine 0.97 Calcium 8.5 All other labs normal. Assessment and Plan (1) Encounter for ostomy care education: Status: Acute Plan a present, no acute surgical or ostomy issues. Nursing ostomy care and input much appreciated. Will follow-up p.r.n.. Procedures Date of Service Date of Service: 08/03/23
[2023-08-03 11:12] VITALS: BP 127/64; PULSE 78; RESP 16; TEMP 36.2; O2SAT 94
--- NOTE | 2023-08-03 12:16 | P.DS_ITS ---
DS: Providers Provider Date of Service: 08/03/23 <SANDRO Bravo - Last Filed: 08/03/23 12:52> Date of admission: 07/31/23 17:10 <SANDRO Bravo - Last Filed: 08/03/23 12:52> Date of discharge: 08/03/23 <SANDRO Bravo - Last Filed: 08/03/23 12:52> Primary care physician: Jono Headley MD <SANDRO Bravo - Last Filed: 08/03/23 12:52> Consults: 07/31/23 17:18 Consult to Hematology / Oncology Routine Consulting Provider: Sheree Mckee Reason for consultation: colon ca, anorexia Consult to Nephrology Routine Consulting Provider: [facility] [place] [facility] Reason for consultation: bettye, hyperkalemia 07/31/23 17:40 Consult to Ostomy Care Routine 08/02/23 16:32 Consult to General Surgery Routine Consulting Provider: [facility] [place] [facility] Reason for consultation: caput medusae stoma <SANDRO Bravo - Last Filed: 08/03/23 12:52> Attending physician on discharge: Fahad Farley <SANDRO Bravo - Last Filed: 08/03/23 12:52> Discharging clinician: Dara Cai <SANDRO Bravo - Last Filed: 08/03/23 12:52> DS: Diagnosis Discharge Diagnosis (1) Acute kidney injury: Status: Resolved <SANDRO Bravo - Last Filed: 08/03/23 12:52> (2) Acute hyperkalemia: Status: Resolved <SANDRO Bravo - Last Filed: 08/03/23 12:52> (3) Metabolic acidosis: Status: Resolved <SANDRO Bravo - Last Filed: 08/03/23 12:52> (4) Encounter for ostomy care education: Status: Acute <SANDRO Bravo - Last Filed: 08/03/23 12:52> (5) Multifocal pneumonia: Status: Acute <SANDRO Bravo - Last Filed: 08/03/23 12:52> (6) Hyponatremia: Status: Acute <SANDRO Bravo - Last Filed: 08/03/23 12:52> DS: Summary Hospital Course Hospital Course: From H&P on the day of admission 63-year-old male with history of ILD/pulmonary fibrosis and metastatic colon cancer with liver and lung metastasis on FOLFIRI Avastin following with Dr. Mckee s/p colostomy presents to the ED earlier today from oncology office due to progressive weakness in severe lower abdominal discomfort ongoing for several weeks. He has not been eating and drinking much and has little appetite. He feels like he is dehydrated though is making urine and has watery stool via his ostomy bag. Labs were performed revealing acute renal failure with hyperkalemia and case was discussed with ED by oncology provider for management of hyperkalemia, BETTYE and for CT of the abdomen/pelvis. While in the ED, vital signs were stable. Initi al labs revealed a leukocytosis of 17.7, normocytic anemia. Initial creatinine 1.91 (baseline 0.93), BUN 56. Initial sodium 128, potassium 7.1, chloride 110, CO2 12. Initial EKG did not reveal peaked T waves. He was given 1 L IVF with limited improvement in renal function and electrolyte levels with creatinine 1.76, BUN 52, sodium 129, worsening potassium of 7.4, CO2 14. ICU provider was then consulted who did not feel patient warranted ICU level of care. He was then treated with 10 units regular insulin, 1 amp of sodium bicarb, sodium bicarb/D5 drip, and lokelma. On admission, renal function improved with creatinine 1.64, BUN 48. Electrolyte levels improved with sodium 132, potassium 6.9, CO2 17. POC glucose was low at 59, given 1 amp d50. He is currently reporting severe pain in the lower abd and low back. No sob, lightheadedness, palpitations, or chest pain. No n/v. Acute kidney injury/hyperkalemia, mentabolic acidosis- BETTYE likely prerenal due to hypovolemia from poor PO intake- resolved with IVF. Hyperalemia and metabolic acidosis related to BETTYE and also resolved with IVF and improvement in renal function. Patient currently tolerating diet and is feeling better. Hyponatremia, acute on chronic. Improved to 131. Multifocal pneumonia. incidental finding on ct abd pelvis with question of infiltrates being neoplastic, inflammatory, or infectious. CXR showed multi foc al pneumonia and pt initiated on ceftriaxone and doxy. Chest CT was obtained which showed diffuse emphysema with chronic interstitial fibrosis and multiple bilateral subpleural masses and or consolidation all larger nodules have increased in size from April 03 CT exam and are suspicious. Will complete course of antibiotics for possible post obstructive pneumonia. will need outpatient follow up imaging. Blood cultures have remained negative for 24 hours, he is afebrile and leukocytosis resolved. He has had no episodes of hypoxia and is able to ambulate without shortness of breath. Diarrhea. cdif PCR and GI panel negative. likely due to lack of solid food. Tolerating a diet now. Seen by wound are nurse and provided ostomy care. No further burning around ostomy site. Metastatic colon cancer. able to ambulate. will continue home pain meds. outpatient follow up with oncology <SANDRO Bravo - Last Filed: 08/03/23 12:52> Time Attestation Discharge coordination time: Greater than 30 minutes <SANDRO Bravo - Last Filed: 08/03/23 12:52> Quality: Safe Use of Opioids Does Pt have an Active Cancer Diagnosis on the Problem List?: Yes <SANDRO Bravo - Last Filed: 08/03/23 12:52> Opioid Measure Date for CMS Report: 07/04/23 <SANDRO Bravo - Last Filed: 08/03/23 12:52> 07/15/23 <Fahad Farley MD - Last Filed: 08/14/23 13:22> Opioid Measure Time for CMS Report: 12:48 <SANDRO Bravo - Last Filed: 08/03/23 12:52> 13:22 <Fahad Farley MD - Last Filed: 08/14/23 13:22> Quality: Stroke Does the patient have a stroke diagnosis?: No <SANDRO Bravo - Last Filed: 08/03/23 12:52> Physical Exam Vital Signs: Vital Signs: Last Vital Signs Temp 97.2 F 08/03/23 11:12 Pulse 78 08/03/23 11:12 Resp 16 08/03/23 11:12 BP 127/64 08/03/23 11:12 Pulse Ox 94 08/03/23 11:12 O2 Del Method Room Air 08/03/23 11:12 O2 Flow Rate 98 08/02/23 23:29 BMI result Body Mass Index 20.2 <SANDRO Bravo - Last Filed: 08/03/23 12:52> Const: Other: chronically ill appearing <SANDRO Bravo - Last Filed: 08/03/23 12:52> General: cooperative, comfortable, alert and awake <SANDRO Bravo - Last Filed: 08/03/23 12:52> Nutritional Appearance: thin <SANDRO Bravo - Last Filed: 08/03/23 12:52> Orientation/consciousness: patient oriented x3 <SANDRO Bravo - Last Filed: 08/03/23 12:52> Resp: Effort & Inspection: normal respiratory effort, able to speak in complete sentences, no respiratory distress and no use of accessory muscles <SANDRO Bravo - Last Filed: 08/03/23 12:52> Cardio: Rate: regular rate <SANDRO Bravo - Last Filed: 08/03/23 12:52> GI: Other: ostomy present; abdomen soft, non-distended <SANDRO Bravo - Last Filed: 08/03/23 12:52> Neuro: Other: grossly nonfocal <SANDRO Bravo - Last Filed: 08/03/23 12:52> General: patient oriented x3 <SANDRO Bravo - Last Filed: 08/03/23 12:52> DS: Data Data Completed and Pending Labs on day of discharge: Laboratory Results - last 24 hr 08/03/23 07:39 WBC 6.5 RBC 3.13 L Hgb 9.5 L Hct 29.2 L MCV 93.3 MCH 30.4 MCHC 32.5 RDW 15.8 Plt Count 173 MPV 11.9 Immature Gran % (Auto) 0.5 H Neut % (Auto) 75.8 H Lymph % (Auto) 11.9 L Stafford % (Auto) 10.0 Eos % (Auto) 1.2 Baso % (Auto) 0.6 Lymph # (Auto) 0.8 L Stafford # (Auto) 0.7 Eos # (Auto) 0.1 Baso # (Auto) 0.0 Abs Immat Gran (auto) 0.03 Absolute Neuts (auto) 4.9 Absolute Nucleated RBC 0.000 Nucleated RBC % (auto) 0.0 Sodium 131 L Potassium 4.5 Chloride 100 Carbon Dioxide 25 Anion Gap 11 L BUN 20 H Creatinine 0.97 Estim Creat Clear Calc 70.6 Estimated GFR > 60 Random Glucose 86 Calcium 8.5 Preliminary micro results at discharge 08/02/23 00:27 Blood Culture - Preliminary Blood - Venous No growth after 24 hours. 08/02/23 00:27 Blood Culture - Preliminary Blood - Venous No growth after 24 hours. <SANDRO Bravo - Last Filed: 08/03/23 12:52> Discharge Plan Discharge Anticipated Discharge Date/Time: 08/03/23 12:52 <SANDRO Bravo - Last Filed: 08/03/23 12:52> Patient Disposition: Home, Self-Care <SANDRO Bravo - Last Filed: 08/03/23 12:52> Discharge Diagnosis: BETTYE hyperkalemia metabolic acidosis <SANDRO Bravo - Last Filed: 08/03/23 12:52> BETTYE hyperkalemia metabolic acidosis <Fahad Farley MD - Last Filed: 08/14/23 13:22> Referrals: Po,Jono Kaur MD [Primary Care Provider] - 1 Week <SANDRO Bravo - Last Filed: 08/03/23 12:52> Discharge Medications: New cefuroxime axetil 500 mg tablet 500 mg PO BID 5 Days Qty: 10 0RF doxycycline hyclate 100 mg tablet 100 mg PO BID 5 Days Qty: 10 0RF Continued ferrous sulfate [iron] 325 mg (65 mg iron) Tablet 325 mg PO BID Qty: 60 2RF cholestyramine (with sugar) [Questran] 4 gram powder in packet 1 ea PO BID Qty: 60 1RF ondansetron HCl 8 mg tablet 8 mg PO Q6-8H PRN (Reason: Nausea And Vomiting) Qty: 60 0RF morphine [MS Contin] 30 mg tablet extended release 30 mg PO BID Qty: 60 0RF oxycodone 5 mg Tablet 5 mg PO Q8H PRN (Reason: Pain) Qty: 60 0RF Rx Instructions: Partial Fill upon patient request. omeprazole 40 mg capsule,delayed release(DR/EC) 40 mg PO DAILY@0630 acetaminophen 650 mg tablet extended release 650 mg PO Q6H PRN (Reason: Pain) dexamethasone 4 mg tablet 4 mg PO DAILY Qty: 5 0RF No Action (DME) Natura Drainable Pouch 1 08/14 (12 ) [facility] [place] Qty: 10 6RF Rx Instructions: As Directed <SANDRO Bravo - Last Filed: 08/03/23 12:52> Discharge Orders: Discharge Order (Routine); Ordered 08/03/23 Ordered By: Dara Cai <SANDRO Bravo - Last Filed: 08/03/23 12:52> Activity on Discharge: As tolerated <SANDRO Bravo - Last Filed: 08/03/23 12:52> As tolerated <Fahad Farley MD - Last Filed: 08/14/23 13:22> Stand Alone Forms: Patient Portal Discharge page <SANDRO Bravo - Last Filed: 08/03/23 12:52> Activity Restrictions/Additional Instructions: Routine Pouching Instructions: 1. Remove pouch every 3-4 days. Change sooner if you notice any leaking. ?Do not reinforce with tape. 2. Clean skin around stoma with warm water and soft cloth. ?Avoid using soaps or lotions. ?Discontinue Adhesive remover if used. *Soaps can contain aloes/lanolins/extracts which leave film on skin that will interfere with pouch adherence 3. Pat skin dry. 4. For the red and irritated skin dust with Stomahesive powder, dust off all excess powder, then seal with no sting barrier wipe, allow to dry. 5. Prepare products; Cut ostomy pouch - Template left at bedside. 6. Apply Barrier Ring at this time. 7. Remove adhesive paper backing from back of pouch wafer apply Gentle Warm pressure to seal the wafer to his skin. ? Initiated [employer] [facility] program for barrier ring sample - per pt request. <SANDRO Bravo Last Filed: 08/03/23 12:52> Care Plan Goals: see below <SANDRO Bravo Last Filed: 08/03/23 12:52> Health Concerns: acute kidney injury elevated potassium levels metabolic acidosis pneumonia hyponatremia <SANDRO Bravo - Last Filed: 08/03/23 12:52> Plan of Treatment: outpatient follow up with oncology for management of cancer kidney function, potassium levels have returned to normal continue ostomy care as per wound nurse instructions call to schedule follow up appointment with PCP as needed complete course of antibiotics for pneumonia <SANDRO Bravo - Last Filed: 08/03/23 12:52> Assessment: see discharge summary <SANDRO Bravo - Last Filed: 08/03/23 12:52> Discharge Date/Time: 08/03/23 14:19 <SANDRO Bravo - Last Filed: 08/03/23 12:52>
--- NOTE | 2023-08-03 13:05 | MHC.CM.PN ---
PT MEDICALLY CLEARED FOR DC HOME SELF CARE, CHRISTIANO SPOKE W/PT'S /HCP RUCHI WHO REPORTS PT LOST HIS MH NOT HIS MEDICARE THUS HE HAD RUN OUT OF OSTOMY SUPPLIES, [facility]IANO WILL SEND SOME HOME W/PT HIS MH HAS YET TO BE REINSTATED, RUCHI FOR TRANPORT
[2023-08-06 21:34] LABS: Strep Pneumo Ag urine Detected (Not Detected)
[2023-08-08 05:29] LABS: Legionella Ag Urine Not Detected (Not Detected)
== END 2023-08-03 14:19 | disposition home or self-care (01) | DRG 682 ==
LOC: HO.ED 13:42 → HO.EDOVER 18:37 → HO.IMC 19:15
PROVIDERS: Student in an Organized Health Care Education/Training Program; Admitting Provider Physician Assistant; Emergency Provider Emergency Medicine; PCP Internal Medicine; Visit Provider Physician Assistant Medical
DX: N17.9 Acute kidney failure, unspecified (principal); J18.9 Pneumonia, unspecified organism; C18.9 Malignant neoplasm of colon, unspecified; E87.20 Acidosis, unspecified; E44.0 Moderate protein-calorie malnutrition; C78.7 Secondary malignant neoplasm of liver and intrahepatic bile duct; C78.02 Secondary malignant neoplasm of left lung; C78.01 Secondary malignant neoplasm of right lung; E87.1 Hypo-osmolality and hyponatremia; D84.9 Immunodeficiency, unspecified; Z43.3 Encounter for attention to colostomy; E16.2 Hypoglycemia, unspecified; E88.A Wasting disease (syndrome) due to underlying condition; R63.0 Anorexia; Z68.20 Body mass index [BMI] 20.0-20.9, adult; J43.9 Emphysema, unspecified; J70.4 Drug-induced interstitial lung disorders, unspecified; T45.1X5A Adverse effect of antineoplastic and immunosuppressive drugs, initial encounter; E87.5 Hyperkalemia; E86.0 Dehydration; E86.1 Hypovolemia; Z79.899 Other long term (current) drug therapy
CPT/HCPCS: 36415; 71045; 71250; 74176; 76775; 80048; 82947; 85025; 87040; 87070; 87205; 87449; 87493; 87507; 87899; 93005; 97162; 99285; J0613; J0696; J1170; J1644; J2405

== ENCOUNTER → 2023-07-31 10:42 | Outpatient (BNV) | payer MEDICARE, SELFPAY | PROVIDERS: Emergency Provider Emergency Medicine; PCP Internal Medicine; Visit Provider Internal Medicine Cardiovascular Disease | DX: I44.0 Atrioventricular block, first degree (principal) | CPT/HCPCS: 93010 ==

== ENCOUNTER → 2023-07-31 17:10 | Outpatient (BNV) | payer MEDICARE, MEDICAID, SELFPAY | PROVIDERS: Admitting Provider Physician Assistant; Emergency Provider Emergency Medicine; PCP Internal Medicine; Visit Provider Internal Medicine | DX: C18.9 Malignant neoplasm of colon, unspecified (principal); C78.7 Secondary malignant neoplasm of liver and intrahepatic bile duct; C78.00 Secondary malignant neoplasm of unspecified lung; E87.5 Hyperkalemia | CPT/HCPCS: 99222; 99231 ==

== ENCOUNTER → 2023-07-31 17:10 | Outpatient (BNV) | payer MEDICARE, SELFPAY | PROVIDERS: Admitting Provider Physician Assistant; Emergency Provider Emergency Medicine; PCP Internal Medicine; Visit Provider Surgery | DX: Z93.3 Colostomy status (principal); Z71.89 Other specified counseling | CPT/HCPCS: 99221 ==

== ENCOUNTER → 2023-07-31 17:10 | Outpatient (BNV) | payer MEDICARE, SELFPAY | PROVIDERS: Admitting Provider Physician Assistant; Emergency Provider Emergency Medicine; PCP Internal Medicine; Visit Provider Internal Medicine Hypertension Specialist | DX: N17.9 Acute kidney failure, unspecified (principal); E87.5 Hyperkalemia; E87.1 Hypo-osmolality and hyponatremia; E87.21 Acute metabolic acidosis | CPT/HCPCS: 99223; 99232; 99499 ==

== ENCOUNTER → 2023-07-31 17:10 | Outpatient (BNV) | payer MEDICARE, MEDICAID, SELFPAY | PROVIDERS: Admitting Provider Physician Assistant; Emergency Provider Emergency Medicine; PCP Internal Medicine; Visit Provider Physician Assistant | DX: N17.9 Acute kidney failure, unspecified (principal); E87.5 Hyperkalemia; E87.20 Acidosis, unspecified; Z71.89 Other specified counseling; J18.9 Pneumonia, unspecified organism; E87.1 Hypo-osmolality and hyponatremia | CPT/HCPCS: 99223; 99232; 99239 ==

== ENCOUNTER 2023-08-14 11:02 | Outpatient (REF) | payer MEDICARE, OTHER, SELFPAY ==
--- NOTE | ~2023-08-14 | PE_ITS ---
EXAMINATION: FLUORINE-18 FDG PET/CT SCAN CLINICAL INFORMATION: Subsequent treatment management. Malignant neoplasm of colon. Restaging. TECHNIQUE: 60 minutes following the intravenous administration of 16.3 mCi of fluorine 18 FDG, images from the base of skull to mid-thigh were obtained using a combined PET/CT scanner with CT scan based attenuation correction. No intravenous contrast was administered. Transverse, coronal, sagittal, and volume reconstruction projections were obtained. The patient's blood glucose as determined by a finger stick, was 75 mg/dL immediately prior to injection. The radiotracer was injected intravenously through left antecubital superficial vein, without any complications. Total CT exam dose-length product 518.51 mGy-cm. * These CT images were obtained using dose optimization techniques as appropriate, variously including the following: Automated exposure control * Adjustment of mA and/or kV according to patient size (this includes techniques or standardized protocols for targeted exams where dose is matched to indication/reason for exam; i.e. extremities or head) * Use of iterative reconstruction technique COMPARISON: CT of the chest done on 08/02/[address] of the abdomen and pelvis done on 07/31/2023. FINDINGS: SUV max REFERENCE: Blood: 1.49 (164/267). Liver: 1.76 (143/267). HEAD AND NECK: No abnormal radiotracer uptake. No large intracranial hemorrhage, acute territorial infarct or significant shift of midline structures. CHEST: Ports and Devices: Right-sided Port-A-Cath is noted with its tip seen at the cavoatrial junction Lungs: Previously documented clinically known pleural-based 2.2 x 1.6 cm left upper lobar lung nodule seen at mid lateral left hemithorax shows significant tracer avidity with SUV max of 6.8 (179/267), suspicious for primary or metastatic neoplasm. Image guided biopsy may be considered for definitive tissue diagnosis, if clinically appropriate. Ill-defined pleural-based airspace opacity associated with mild bronchial dilatation at left lower lobe of the lung abutting the overlying pleural surface also shows moderate tracer avidity max of 5.1 (167/267). Similar-appearing peripheral pleural-based curvilinear airspace opacity at right mid posterolateral hemithorax overlying the right lower lobe of the lung also shows mild tracer avidity with SUV max of 3.4 (177/267). Both these 2 tracer avid disease may represent infectious, inflammatory process and less likely to be malignancy. Pleura: No significant pleural effusion. Lymph Nodes: No tracer-avid mediastinal, hilar or internal mammary or axillary lymphadenopathy. Mediastinum: There is no significant pericardial effusion/thickening. Breasts/Chest Wall: No abnormal radiotracer uptake. ABDOMEN/PELVIS: Liver/Biliary System: There are multiple calcified as well as hypodense and mixed hypodense and calcified lesions identified throughout both lobes of the liver. There are 3 superimposed tracer avid disease identified involving the right lobe of the liver. The largest seen along the subdiaphragmatic surface posterosuperiorly, measures approximately 5.3 x 2.7 cm with SUV max of 5.3 (146/267). The second smaller anteriorly located subdiaphragmatically lesion seen in the same plane measures approximately 2.0 x 1.0 cm with SUV max of 4.3 (144/267). The third lesion is seen at segment 7 of right lobe of the liver in the subcapsular region with SUV max of 4.1, measures approximately 2.3 x 1.2 cm (140/267). All these 3 tracer avid foci are suspicious for residual and/or recurrent hepatic metastases. Completely calcified lesions do not show any tracer avidity and are consistent with healed lesions. The gallbladder appear unremarkable. Pancreas: Normal. Spleen: No abnormal radiotracer uptake. No evidence of splenomegaly. Adrenal Glands: No abnormal radiotracer uptake. Kidneys: No hydronephrosis, hydroureter or renal calculi bilaterally. Bowel: There is no significant bowel dilatation to suggest obstruction. Left lower quadrant ostomy is present without evidence of any hernia. Specific note is made of presence of a 2.9 x 1.7 cm linear focal tracer avid soft tissue disease with SUV max of 5.5 (58/267) inseparable from adjacent bowel loops. Differential diagnosis would include primary bowel malignancy versus serosal metastases and unlikely to be mesenteric lymphadenopathy. Note is also made of presence of residual within the large bowel and colonic diverticulosis of the sigmoid colon. Lymph Nodes: No definite tracer avid retroperitoneal, mesenteric or pelvic and/or groin lymphadenopathy. Pelvic Organs: The urinary bladder is underdistended. Abnormally enlarged prostate. MUSCULOSKELETAL: No suspicious tracer avid focal osseous disease to suspect metastasis. VASCULAR: Calcific atherosclerotic disease of the aorta including coronary artery calcifications as well as carotid artery calcifications. No evidence of aneurysm. THE SITE(S) OF MOST INTENSE FDG AVIDITY AND SUV MAX: The left lateral mid hemithoracic pleural-based 2.2 x 1.6 cm nodule with SUV max of 6.8. PET/PET CT fusion skull to thigh IMPRESSION: 1. Previously documented clinically known 2.2 cm maximum dimension pleural-based solid-appearing nodule seen at mid left lateral hemithorax shows moderate tracer avidity with SUV max of 6.8, suspicious for either primary or metastatic lung neoplasm. Image guided biopsy may be considered for the tissue diagnosis. 2. Nonspecific tracer avid airspace opacities (left greater than right) at left lower and right lower lobe of the lung, may represent infectious, inflammatory processes and less likely to be neoplasm. Follow-up to document resolution with proper medical treatment as appropriate is recommended. 3. There are 3 tracer avid foci seen within the right lobe of the liver highly suspicious for residual and/or recurrent disease in the background of multifocal additional non tracer avid liver lesions with posttreatment changes. Please note that there are no prior PET CT study available for direct comparison. 4. Solitary tracer avid soft tissue disease seen at right mid pelvis inseparable from the adjacent bowel loops with SUV max of 5.5.Differential diagnosis would include primary bowel malignancy versus serosal metastases and unlikely to be mesenteric lymphadenopathy. 5. Calcific atherosclerotic disease of the aorta including coronary and carotid arterial calcifications and no evidence of aneurysm.
== END 2023-08-14 11:03 | disposition home or self-care (01) ==
LOC: HO.PET 11:02
PROVIDERS: PCP Internal Medicine; Visit Provider Internal Medicine
DX: Z13.89 Encounter for screening for other disorder (principal)

== ENCOUNTER 2023-09-28 13:22 | Inpatient (IN) | payer OTHER, SELFPAY ==
[2023-09-28] VITALS (13 sets, daily range): BP systolic 104–122; BP diastolic 50–68; PULSE 77–87; RESP 14–20; TEMP 36.8–37.4; O2SAT 96–100; BMI 18.7
--- NOTE | ~2023-09-28 | XR_ITS ---
EXAMINATION: XR CHEST CLINICAL INFORMATION: Neutropenic. Fever. COMPARISON: Chest radiograph dated 08/01/2023. TECHNIQUE: Frontal view of the chest was obtained. FINDINGS: The right side chest port is unchanged in position. The trachea is in normal anatomic position. Heart size is normal. There are patchy left lower lobe opacities, similar to what was seen on the 08/01/2023 chest radiograph. Right lower lobe opacities are also stable. No pneumothorax or pleural effusion. No acute osseous abnormality. XR/XR chest 1V IMPRESSION: Left greater than right lower lobe opacities concerning for multifocal infectious process.
--- NOTE | ~2023-09-28 | CT_ITS ---
EXAMINATION: CT ABDOMEN AND PELVIS WITH CONTRAST CLINICAL INFORMATION: Pain. History of colon metastatic cancer COMPARISON: Previous CT of the abdomen and pelvis most recent July 2023 TECHNIQUE: Multidetector volumetric images were obtained from the superior aspect of the liver through the pubic symphysis following administration 85 mL of Omnipaque 350 intravenous contrast. Sagittal and coronal reformatted images were obtained on the technologist's workstation. Oral contrast: Yes This CT examination was performed using dose optimization techniques as appropriate, variously including the following: *Automated exposure control *Adjustment of mA and/or kV according to patient size (this includes techniques or standardized protocols for targeted exams where dose is matched to indication/reason for exam; i.e. extremities or head) *Use of iterative reconstruction technique DLP: 346 mGy-cm FINDINGS: LUNG BASES: Increased reticular markings at the lung bases questionable for mild interstitial lung disease. Improving atelectasis or small infiltrates at the lung bases compared to July LIVER, GALLBLADDER, AND BILIARY TREE: Difficult colon to compare liver lesions with noncontrast July 2023. There are partially calcified or treated lesion seen in both lobes of the liver. Largest lesion measures 3 x 4.2 cm in the right lobe compared to approximately 2.6 cm July 2023 and may be increased in size. Partially calcified 2 cm lesion in inferior posterior segment of the right lobe compared to 1.5 cm Tano exam.. PANCREAS: Unremarkable. SPLEEN: The spleen is enlarged measuring 13.5 cm ADRENAL GLANDS: Unremarkable. KIDNEYS AND URETERS: The kidneys are normal in size, shape, and attenuation. No hydronephrosis, hydroureter, or calculi seen. Small bilateral renal cysts. No imaging follow-up recommended. No perinephric stranding. BLADDER: Unremarkable. GASTROINTESTINAL TRACT: Left lower quadrant ileostomy. Diverticulosis of the colon. Diffuse wall thickening and edema of the colon more suggestive of pancolitis diverticulitis. Slightly distended fluid-filled loops of small bowel. Normal appendix. Trace ascites adjacent to the stomach and small bowel mesentery. ABDOMINAL WALL: No significant hernia is appreciated. LYMPH NODES: Normal. VASCULAR: Atherosclerotic disease. No aneurysm. PELVIC VISCERA: Unremarkable. OSSEOUS STRUCTURES: Degenerative changes of the spine. CT/CT abdomen pelvis w IV con IMPRESSION: 1. Diffuse wall thickening and edema of the colon suggestive of pancolitis. Diverticulosis of the colon. Left lower quadrant ileostomy. 2. Difficult to compare liver lesions with noncontrast exam July 2023. There are partially calcified or treated lesion seen in both lobes of the liver. Question slightly in size, larger lesions in the right lobe. 3. Enlarged spleen. Fleischner guidelines were followed.
--- NOTE | 2023-09-28 13:33 | PC.NURSE ---
pt coming from chemo for abnormal lab, pt had fever and neutropenic blood count. pt has port accessed in right chest, NS fluids running from chemo center. pt is alert and oriented, breathing even and unlabored, skin pale and dry. pt reports generalized abd pain, 5/10, otherwise reports he is comfortable. vss.
--- NOTE | 2023-09-28 14:12 | ED_ITS ---
HPI - Recheck/Abnormal Lab/Rx General Chief Complaint: Recheck/Abnormal Lab/Rx Stated Complaint: gen med Time Seen by Provider: 09/28/23 13:36 Source: patient and family Mode of arrival: wheelchair Limitations: no limitations History of Present Illness HPI narrative: Patient comes to the emergency room because he was asked by the oncology team to come to get checked out. Patient states that yesterday he had a fever of 102.0 in the evening, took Tylenol, and in the morning he woke up with the fever, not improved, 102.0 F, confirmed with the patient and his family that this was not 100.2, it was actually 102.0F. Patient states that he has gradually had worsening abdominal pain. Patient known to have colon cancer with liver metastasis, diagnosed in 2019. Over last week, seem to the pain got worse. Patient denies nausea vomiting or diarrhea. Patient states that he is continuously in pain, takes OxyContin b.i.d. and oxycodone for breakthrough pain. Related Data Home Medications Medication Instructions Recorded Confirmed acetaminophen 650 mg 650 mg PO Q6H PRN Pain 08/04/22 08/08/23 tablet,extended release Previous Rx's Medication Instructions Recorded colostomy bag, non-sterile 1 08/14 #10 ea 03/29/21 (12 ) (Natura Drainable Pouch) ferrous sulfate 325 mg (65 mg 325 mg PO BID #60 tabs 01/20/23 iron) tablet (iron) ondansetron HCl 8 mg tablet 8 mg PO Q6-8H PRN Nausea And 06/22/23 Vomiting #60 tabs dexamethasone 4 mg tablet 4 mg PO DAILY #5 tabs 07/14/23 cefuroxime axetil 500 mg tablet 500 mg PO BID 5 days #10 tabs 08/03/23 doxycycline hyclate 100 mg tablet 100 mg PO BID 5 days #10 tabs 08/03/23 trifluridine 20 mg-tipiracil 8.19 3 tab PO BID #60 tabs 08/21/23 mg tablet (Lonsurf) cholestyramine (with sugar) 4 gram 1 ea PO BID #60 ea 09/07/23 powder for susp in a packet (Questran) omeprazole 40 mg capsule,delayed 40 mg PO DAILY@0630 09/07/23 release morphine 30 mg tablet,extended 30 mg PO BID #60 tabs 09/13/23 release (MS Contin) oxycodone 5 mg tablet 5 mg PO Q8H PRN Pain #60 tabs 09/13/23 Allergies Allergy/AdvReac Type Severity Reaction Status Date / Time prednisone [PREDNISONE] AdvReac Intermediate Psychosis Verified 08/08/23 14:38 Review of Systems Review of Systems: Constitutional : No Weight loss, No Fever, No Chills, No Night Sweats, complaining of chronic fatigue ENT/Mouth : No Hearing loss, No Ear Pain, No Nasal Congestion, No Sinus Pain, No Hoarseness, No sore throat, No Rhinorrhea, No Swallowing Difficulty Eyes: No Eye Pain, No Swelling, No Redness, No Foreign Body, No Discharge, No Vision Changes Cardiovascular : No Chest Pain, No SOB, No Dyspnea on Exertion, No Orthopnea, No Edema, No Palpitations Respiratory : No Cough, No Sputum, No Wheezing, No Smoke Exposure, No Dyspnea Gastrointestinal : No Nausea, No Vomiting, No Diarrhea, No Constipation, complaining of acute on chronic abdominal pain Genitourinary : no irregular bleeding, No Dysuria, No Urinary Frequency, No Hematuria, No Urinary Incontinence, No Urgency, No Flank Pain, No Urinary Flow Changes, No Hesitancy Musculoskeletal : Complaining of chronic throughout pain Skin : No Skin Lesions, No rash Neuro : No Weakness, No Numbness, No Paresthesias, No Loss of Consciousness, No Dizziness, No Headache Psych : No Anxiety/Panic, No Depression, No SI/HI/AH/VH, No Social Issues, Heme/Lymph: No Bruising, No Bleeding,No Lymphadenopathy Endocrine : No Polyuria, No Polydipsia, No Temperature Intolerance [facility] Past Medical History Medical History Encounter for ostomy care education Multifocal pneumonia Hyponatremia Colon cancer metastasized to liver Pulmonary nodule Colon cancer metastasized to liver Pulmonary fibrosis ILD (interstitial lung disease) Chronic respiratory failure Tubular adenoma Colon cancer metastasized to liver Surgical History H/O knee surgery Family History Family History Son Cystic fibrosis Brother Esophageal cancer Maternal Aunt Lung cancer Social History Social History Household Members: Family Housing: House Do you presently have visiting nurse or other home services: Yes (son s girlfriend is [employer].) Patient Tobacco Use Status: Former Tobacco user Tobacco use type: Cigarette Smoked in Last 30 Days: No e-Cigarette/Vaping Use: Former Use Second Hand Smoke Exposure: No Use of substances other than those prescribed or required for medical reasons: No Substance Use Type: Marijuana Advance Directives: Yes Advance Directives on File: Yes Advance Directives Date on File: 12/12/22 service: No Current occupational status: employed Current occupation: [employer] Physical Exam Vital Signs: Vital Signs: Last Vital Signs Temp 98.3 F 09/28/23 18:05 Pulse 87 09/28/23 19:37 Resp 14 09/28/23 19:37 BP 122/63 09/28/23 19:37 Pulse Ox 99 09/28/23 19:37 O2 Del Method Room Air 09/28/23 19:37 BMI result Body Mass Index 18.7 Const: Other: Appearance: Alert. Oriented X3. No acute distress. Cachectic Eyes: Pupils equal, round and reactive to light. ENT: Pharynx normal. Neck: Normal inspection. Neck supple. No lymph nodes noted. No crepitus CVS: Normal heart rate and rhythm. Pulses normal. Normal S1 and S2 Respiratory: No respiratory distress. Breath sounds normal. No Wheezing. No rales Abdomen: Soft , nondistended, tenderness to palpation eating in the epigastric area, colostomy bag in place Skin: Skin warm and dry. Normal skin color. Normal skin turgor. Extremities: No lower extremity edema. No Lacerations. No Rash Neuro: Oriented X 3. No motor deficit. No sensory deficit. Moving all extremities. No slurred speech. CN 2 through 12 grossly intact Psych: calm, cooperative, normal affect Medications Administered Generic Name Dose Route Start Last Admin Trade Name Freq PRN Reason Stop Dose Admin Morphine Sulfate 100 mg in 100 mls @ 0 mls/hr 09/28/23 14:15 09/28/23 16:49 Morphine Sulfate/Ns IVCONT 2 mg/hr .Q0M PINEDA 2 mls/hr Administration Protocol Per Protocol Discontinued Medications Generic Name Dose Route Start Last Admin Trade Name Freq PRN Reason Stop Dose Admin Sodium Chloride 100 mls @ 100 mls/hr 09/28/23 13:54 09/28/23 16:28 Ns IV 09/28/23 14:53 Infused ONCE ONE Infusion Sodium Chloride 100 mls @ 100 mls/hr 09/28/23 13:54 09/28/23 17:55 Ns IV 09/28/23 14:53 100 mls/hr ONCE ONE Administration Cefepime HCl 2 gm/ Sodium 50 mls @ 100 mls/hr 09/28/23 13:55 09/28/23 15:26 Chloride IV 09/28/23 14:24 Infused ONCE ONE Infusion Sodium Chloride 2,000 mls @ 999 mls/hr 09/28/23 13:55 09/28/23 14:49 Ns IVCONT 09/28/23 15:55 999 mls/hr .Q2H1M ONE Administration Iohexol 85 ml 09/28/23 18:47 09/28/23 18:48 Iohexol 350 Mg/Ml 100 Ml Infus..Btl IV 09/28/23 18:48 85 ml ONCE ONE Administration Morphine Sulfate 3 mg 09/28/23 16:16 09/28/23 16:27 Morphine Sulfate 4 Mg/Ml Cartridge IVPUSH 09/28/23 16:17 3 mg ONCE ONE Administration Protocol Ondansetron HCl 4 mg 09/28/23 16:06 09/28/23 16:15 Ondansetron Hcl 4 Mg/2 Ml Vial IVPUSH 09/28/23 16:07 4 mg ONCE ONE Administration Tbo-Filgrastim 300 mcg 09/28/23 14:25 09/28/23 14:53 Tbo-Filgrastim 300 Mcg/0.5 Ml Syringe SUBCUT 09/28/23 14:26 300 mcg ONCE ONE Administration Medical Decision Making Medical Decision Making MDM Narrative: -patient had labs drawn earlier today -my interpretation of labs, patient has pancytopenia, calculated ANC is 198, patient is severely neutropenic. Patient's LFTs are a bit elevated -patient had a fever yesterday and earlier today of 102.0 F. -patient being treated empirically with antibiotics, cefepime 2 g. -also, patient has hemoglobin is 5.9. Patient states he has never had a blood transfusion in the past. I thoroughly discussed with the patient and his family the benefits versus adverse effects and possible complications a blood transfusion. Patient and family decided to go ahead with a blood transfusion. Patient signed a consent -patient has severe neutropenia, -occult blood test is heme positive, patient known to have colon cancer -at this time, patient does not have a molds form. Patient informed me that the oncology team will be sending shortly 1 of the nurses to go over the molds form. Patient states that at this time, he needs to discuss with his family resuscitation status. However, patient states that other than resuscitation, patient wants to continue with full treatment for cancer including chemotherapy. -patient complaining of acute on chronic severe pain throughout the body. Patient states that his p.o. medications at home are not touching the pain anymore. Patient is now on a morphine [employer] pump. -at this time, 16:12, x-ray became available, possible bilateral pneumonia. Patient has already been given IV fluids and cefepime. Patient's vitals stable, no episodes of hypotension, normal oxygen saturation, no fever at this time. -oncology nurse came to talk to the patient about his code status and filled out the molds forearm, per patient's wishes, he is a full code -CT scan of the abdomen/pelvis pending. -patient states that he is much more comfortable now that he has a [employer] pump. -I discussed the patient with Dr. Chen, pt being admitted Differential Diagnosis Differential Diagnoses: The differential diagnosis associated with the pre sentation includes (Viral syndrome, pneumonia, UTI, cholecystitis) Admission/Observation Consideration of admission/observation: Escalation of care including admission/observation considered Consult Healthcare Provider Management of the patient was discussed with: Hospitalist Lab Data MDM Lab Attestation statement: I reviewed the patient's lab results. Labs: Lab Results 09/28/23 09/28/23 09/28/23 Range/Units 11:17 17:32 19:42 Stool Occult Blood POSITIVE (NEGATIVE) COVID-19 (VANDA) Negative (Negative) COVID-19 Clin Com See Note Influenza Type A (RACHEL) Negative (Negative) Influenza Type B (RACHEL) Negative (Negative) Influenza A & B Note See Note Blood Type A Positive Antibody Screen NEGATIVE Crossmatch See Detail Independent Interpretation I performed an independent interpretation of an: Plain X-Ray Radiology Impression Discussion of test interpretation with radiology: I have reviewed the radiologist's reading. Radiologist Impression: FINDINGS: The right side chest port is unchanged in position. The trachea is in normal anatomic position. Heart size is normal. There are patchy left lower lobe opacities, similar to what was seen on the 08/01/2023 chest radiograph. Right lower lobe opacities are also stable. No pneumothorax or pleural effusion. No acute osseous abnormality. XR/XR chest 1V IMPRESSION: Left greater than right lower lobe opacities concerning for multifocal infectious process Independent Historian Clinical information obtained from an independent historian. History obtained fr om or confirmed by: Spouse External Record Review External record reviewed: Outpatient record Chronic Conditions Patient?s care impacted by: Cancer Critical Care Time Critical Care Time Critical Care Time: Yes Total Critical Care Time: 90 Attestation: I have personally provided critical care time. Time includes review of lab data, radiology results, discussion with consultants, and monitoring for potential decompensation. Intervention performed as documented. Discharge Plan Discharge Clinical Impression: Anemia, Acute hyponatremia, Elevated LFTs, GI bleed Patient Disposition: Admitted As Inpatient
[2023-09-28] MEDS: 0.9 % Sodium Chloride 2,000 ML 999 ML IVCONT (14:49)
[2023-09-28] MEDS: cefEPime HCl 2 GM in 0.9 % Sodium Chloride 50 ML IV (14:49)
[2023-09-28] MEDS: Tbo-Filgrastim 300 MCG/0.5 ML SYRINGE SUBCUT (14:53)
--- NOTE | 2023-09-28 15:35 | PC.NURSE ---
Currently infusing first unit of RBCs, pt is alert and oriented, breathing even and unlabored. pt tolerating infusion well, has no new complaints and vss.
[2023-09-28] MEDS: ondansetron HCL 4 MG/2 ML VIAL IVPUSH (16:15)
[2023-09-28] MEDS: Morphine Sulfate 4 MG/ML CARTRIDGE 3 MG IVPUSH (16:27)
--- NOTE | 2023-09-28 16:30 | PC.NURSE ---
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 Pt given Morphine 3mg IVP to help increasing pain 03/22. Blood continues to infuse without incident
--- NOTE | 2023-09-28 16:35 | PM.HEMONCCN ---
Subjective - Subjective Chief complaint: Consult for: Febrile neutropenia. Metastatic colon cancer. Patient: known to practice within the last 3 years Consult date: 09/28/23 Requesting Physician: Amaury. Primary Care Provider: Jono Headley MD Family Provider: Kayode. Medical Summary: DIAGNOSIS: NAUSEA VOMITING DIARRHEA. FEBRILE NEUTROPENIA. COLON CANCER WITH LIVER AND LUNG METASTASES ON CHEMOTHERAPY. HPI - Consult Narrative Reason for consult: Consult for: 1. Febrile neutropenia. 2. Nausea and diarrhea. 3. Colon carcinoma with metastases Narrative: Milind Bustamante Jr is a 63 year old gentleman with a history of metastatic colon carcinoma. HPI: He mentions that he started with a temp of 102.0 yesterday evening, he took Tylenol. This morning he woke up with the fever, again 102.0 F. He has gradually had worsening abdominal pain. Over last week, seem to the pain got worse. Patient denies nausea vomiting or diarrhea. Patient states that he is continuously in pain, takes OxyContin b.i.d. and oxycodone for breakthrough pain. On 08/15/2023 year PET scan which revealed: 1. Previously documented clinically known 2.2 cm maximum dimension pleural-based solid-appearing nodule seen at mid left lateral hemithorax shows moderate tracer avidity with SUV max of 6.8, suspicious for either primary or metastatic lung neoplasm. Image guided biopsy may be considered for the tissue diagnosis. 2. Nonspecific tracer avid airspace opacities (left greater than right) at left lower and right lower lobe of the lung, may represent infectious, inflammatory processes and less likely to be neoplasm. Follow-up to document resolution with proper medical treatment as appropriate is recommended. 3. There are 3 tracer avid foci seen within the right lobe of the liver highly suspicious for residual and/or recurrent disease in the background of multifocal additional non tracer avid liver lesions with posttreatment changes. Please note that there are no prior PET CT study available for direct comparison. 4. Solitary tracer avid soft tissue disease seen at right mid pelvis inseparable from the adjacent bowel loops with SUV max of 5.5.Differential diagnosis would include primary bowel malignancy versus serosal metastases and unlikely to be mesenteric lymphadenopathy. 09/03/23: His treatment was switched over to Lonsurf and bevacizumab. Medical History: Chronic respiratory failure Colon cancer metastasized to liver Colon cancer metastasized to liver Colon cancer metastasized to liver Encounter for ostomy care education Hyponatremia ILD (interstitial lung disease) Multifocal pneumonia Pulmonary fibrosis Pulmonary nodule Tubular adenoma Family History: Family History: Son Cystic fibrosis Brother Esophageal cancer Maternal Aunt Lung cancer Surgical History: H/O knee surgery Social History: Living Situation History: Lives with . Household Members: Family Housing: House Review of Systems - Constitutional Reports system reviewed and no additional complaints, except as documented, Reports chills, Reports fatigue, Reports fever(s), Reports headache(s), Reports lack of energy, Reports malaise, Reports weakness, Reports weight loss - Eyes Reports system reviewed and no additional complaints, except as documented - ENT Reports system reviewed and no additional complaints, except as documented - Cardiovascular Reports system reviewed and no additional complaints, except as documented - Respiratory Reports no additional respiratory complaints - Gastrointestinal Reports system reviewed and no additional complaints, except as documented, Reports abdominal pain, Reports diarrhea, Reports nausea - Genitourinary Genitourinary: Reports no additional male genitourinary complaints - Musculoskeletal Reports system reviewed and no additional complaints, except as documented - Integumentary/Breasts Skin/Breast: Reports no additional skin complaints - Neurologic Reports system reviewed and no additional complaints, except as documented - Psychiatric Reports system reviewed and no additional complaints, except as documented - Endocrine Reports no additional endocrine complaints - Hematologic/Lymphatic Reports system reviewed and no additional complaints, except as documented - Allergic/Immunologic Reports system reviewed and no additional complaints, except as documented PMFSH Medical History: Medical History (Last Reviewed 09/29/23 @ 02:30 by Milka Reis RN) Chronic respiratory failure Colon cancer metastasized to liver Colon cancer metastasized to liver Colon cancer metastasized to liver Encounter for ostomy care education Hyponatremia ILD (interstitial lung disease) Multifocal pneumonia Pulmonary fibrosis Pulmonary nodule Tubular adenoma Functional capacity: uses cane/walker Patient : No Family History: Family History (Last Reviewed 09/28/23 @ 21:21 by SANDRO Rob) Son Cystic fibrosis Brother Esophageal cancer Maternal Aunt Lung cancer Surgical History: Surgical History (Last Reviewed 09/29/23 @ 02:30 by Milka Reis RN) H/O knee surgery Social History: Social History (Last Reviewed 09/28/23 @ 21:21 by SANDRO Rob) Living Situation History: Household Members: Spouse Housing: House Do you presently have visiting nurse or other home services: Yes Tobacco History: Patient Tobacco Use Status: Former Tobacco user Tobacco use type: Cigarette Smoke Quit Date: quit 20 years ago e-Cigarette/Vaping Use: Former Use Second Hand Smoke Exposure: No Substance Use History: Substance Use Type: Marijuana Advance Directives: Advance Directives Date on File: 12/12/22 Occupation Assessmet: service: No Current occupational status: employed Current occupation: [employer] Home Medications and Allergies Current Medications: Current Medications Morphine Sulfate (Morphine Sulfate/Ns) 100 mg in 100 mls @ 0 mls/hr IVCONT .Q0M PINEDA; Protocol Naloxone HCl (Naloxone Hcl 0.4 Mg/Ml Vial) 0.2 mg IVPUSH Q2M PRN PRN Reason: Excessive sedation or RR < 8 Home Medications Medication Instructions Recorded Confirmed Type acetaminophen 650 mg 650 mg PO Q6H PRN Pain 08/04/22 09/28/23 History tablet,extended release Allergies Allergy/AdvReac Type Severity Reaction Status Date / Time prednisone [PREDNISONE] AdvReac Intermediate Psychosis Verified 08/08/23 14:38 Physical Exam Vital signs: Vital Signs Temp 98.7 F 09/28/23 15:35 Pulse 78 09/28/23 16:16 Resp 16 09/28/23 16:16 BP 111/61 09/28/23 16:16 Pulse Ox 98 09/28/23 16:16 O2 Del Method Room Air 09/28/23 16:16 Intake & Output 09/27/23 09/28/23 09/28/23 18:59 06:59 18:59 Intake Total 150 / 150 Balance 150 / 150 Intake: Intake (Blood Product) Amount 0 / 0 Red Blood Cells (E0382) Unit 0 / 0 [id number] Intake, IV Amount 150 / 150 0.9 % Sodium Chloride 100 ml @ 100 / 100 100 mls/hr IV ONCE ONE Rx#: [id number] cefEPime HCl 2 gm In 0.9 % 50 / 50 Sodium Chloride 50 ml @ 100 mls /hr IV ONCE ONE Rx#:[id number] Other: Weight 60.8 kg Weight 60.8 kg - Constitutional Present: moderate distress - Routine HEENT Exam Head: Present: normal inspection, normocephalic Eye: Present: normal appearance ENT: Present: mucous membranes dry. Absent: mucous membranes moist - Routine Neck Exam Present: supple - Routine Respiratory Exam Present: CTAB - Routine Abdominal Exam Present: hypoactive bowel sounds, tenderness - Routine Skin Exam Present: intact, normal turgor Hem/Onc Consult Result - Labs CBC & Chem 7: 09/30/23 07:34 09/30/23 07:34 Assessment and Plan Patient Active problem list reviewed?: Yes (1) Colon cancer Status: Acute Assessment and plan: This is a 63-year-old gentleman, with metastatic colon carcinoma, ? cecal/rt colon primary with liver and lung metastases. Biopsy of the liver lesion, Moderately differentiated adenocarcinoma. KRAS and BRAF negative. NRAS negative, MSI proficient or MSI stable. HER2 and panTRK negative. Initial CEA elevated at 91. He developed bowel obstruction, palliative bypass ileostomy has been performed in November 2018. He started on mFOLFOX/Avastin regimen from 11/27/2018. His last treatment cycle 13 was on 05/14/2019. He was on maintenance Xeloda 1500 mg p.o. b.i.d. 2 weeks on/1 week off, along with bevacizumab Q 3 weeks starting 10/22/2019 until 12/13/2020. Rising CEA as well as imaging in November 2020 showed evidence of progressive disease. He started irinotecan with bevacizumab from December 2020 until 07/2022. CT chest/ abdomen and pelvis in July 2022 showed progression in lung nodules. CEA penelope to 18.8 NG/mL. Treatment was changed to FOLFIRI Avastin. 2. 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 He has been tapered off prednisone and CellCept. He is also off the oxygen. He has right-sided low back pain, probably muscular. He is on oxycodone 5 mg for breakthrough pain 2 to 3 times a day. 3. Intermittent elevation of bilirubin, indirect bilirubinemia, probable Gilbert's syndrome. 4. Acute renal failure with hyperkalemia. He was admitted to the hospital earlier, nephrology consult was obtained. Imaging did not reveal hydronephrosis or obstructive uropathy. His acute kidney injury was related to prerenal azotemia secondary to poor intake and pneumonia. He was treated with IV hydration and antibiotics for pneumonia. His kidney function normalized. CT chest has shown disease progression with increase in size of bilateral pulmonary nodules. CEA level now above 50. PET-CT performed 08/14/2023 showed left upper lobe lung nodule measuring 2.2 cm with SUV 6.8, multiple lesions throughout both lobes of liver largest measuring 5.3 x 2.7 cm with SUV is 5.3. Because of disease progression, he was switched to Lonsurf (trifluridine and tipiracil) with Avastin in the 3rd line setting from 09/03/2023. Dose of Lonsurf is 60 mg b.i.d. day 1-5 and day 8-12 Q 28 day cycle. Avastin will be administered D1 and 15. He needs to be monitored closely for myelosuppression. DATABASE: 09/28/2023: CBC: WBC 0.9, HGB 5.9, HCT 16.4, PLT 49. CMP: Sodium 13,K 4.5, BUN 32, PAINTING INSTRUCTOR 1.18. LFTs: 3.7/126/. Chest x-ray: Left greater than right lower lobe opacities concerning for multifocal infectious process. Patient called complaining of abdominal pain nausea and diarrhea. He has had high fever of 102 degrees. He was advised to come in for labs and hydration. Here he was noted to have shaking chills. He has pancytopenia. He was referred to the ED, Dr. Aquino graciously accepted him. PLAN: Panculture. Cover with broad-spectrum antibiotics to cover for enteric Gram-negative bacteria/pneumonia. Can use G-CSF to expedite neutrophil recovery. (Granix 300 mcg subQ daily.) Blood transfusion to bring H and H above 7.5. Platelet transfusion in case count falls to less than 10 or for bleeding. May need to get morphine via FOOD BEVERAGE MANAGER, for acute pain control. Can then be transitioned over to oral once acute symptoms subside. Thank you for the consult, CC: Dr. Headley. - Time Spent With Patient Time Spent with Patient (in minutes): 30
[2023-09-28] MEDS: Morphine Sulfate/NS 100 MG/100 ML PLAST..BAG IVCONT (16:49)
--- NOTE | 2023-09-28 17:00 | PC.NURSE ---
VISUAL AND STOCK ASSOCIATE pump initiated with Lalit ICU educator with ordered settings. Awaiting paper flosheet documentation. Pt appears more comfortable at this time.
[2023-09-28 18:01] LABS: COVID-19 Test Negative (Negative); IDNOW Serial# 9DB6401D
--- NOTE | 2023-09-28 18:05 | PC.NURSE ---
second unit of RBCs infusing, pt tolerating well, vss
[2023-09-28 18:11] LABS: IDNOW Serial# 08D9AD1C; Influenza A Negative (Negative); Influenza B2 Negative (Negative)
[2023-09-28] MEDS: iohexoL 350 MG/ML 100 ML INFUS..BTL 85 ML IV (18:48)
--- NOTE | 2023-09-28 19:22 | PC.NURSE ---
assumed care of pt at this time. electrical controls designer pump and ivf infusing via peripheral iv. blood infusing per tar via port L. chest. pt axox4 resp even and unlabored. pain level currently 4/10. pt return from ct to room. nad. call elam within reach.
[2023-09-28 19:52] LABS: OBS Int Ctl Valid YES; OBS1 POSITIVE (NEGATIVE)
--- NOTE | 2023-09-28 20:03 | PM.IMHP ---
History of Present Illness Date of Service: 09/28/23 Attending physician on admission: Lazarus Chen Chief Complaint: Fever Pt is a 63-year-old male with a PMH significant for?ILD/pulmonary fibrosis and metastatic colon cancer with metastasis to liver and lung, currently on Lonsurf with Avastin following with Dr. Mckee s/p colostomy who presents to the ED for evaluation of fever and abdominal pain. Patient reports having increased SOB, fatigue, and cough for the past 2 weeks. Yesterday patient stated that he did not ?feel right? and knew that ?something was wrong?. Reports overall body pain; says ?even my hair hurt . However, patient reports the most pain in his abdomen. Earlier this morning patient called Oncology who directed patient to the emergency room for further evaluation and workup. Complains of chronic nausea and vomiting around baseline. Stomach has been so painful that he has not been eating much, but has been drinking plenty of fluids. Denies chest pain/pressure, palpitations. Denies any blood in his stool, but notes it has been more liquid than normal and darker than normal, almost black. ? In the ED pt was febrile up to 102.1 with variable BP mostly soft as low as 104/50. Labs were significant for WBC of 0.9, H&H 5.9/16.4, platelets 49, sodium 130, bilirubin 3.7, and alk-phos 126. Stool positive for occult blood. Patient tested negative for COVID and influenza type a and B. UA negative for UTI. CXR showed left greater than right lower lobe opacities concerning for multifocal infectious process. CT?of abdomen and pelvis found diffuse wall thickening and edema of the colon suggestive of pancolitis. Pt was treated with cefepime, IVF, ondansetron, morphine, and Granix, and was transfused 3 units of PRBCs. Pt will be admitted to the hospital for treatment and further evaluation of neutropenic fever in the setting of pneumonia, pancolitis, and pancytopenia. Review of Systems Review of Systems: Abdominal pain Diarrhea Increased SOB and fatigue Chronic cough around baseline Chronic nausea and vomiting around baseline Anorexia Denies chest pain/pressure, palpitations PMFSH Medical History Encounter for ostomy care education Multifocal pneumonia Hyponatremia Colon cancer metastasized to liver Pulmonary nodule Colon cancer metastasized to liver Pulmonary fibrosis ILD (interstitial lung disease) Chronic respiratory failure Tubular adenoma Colon cancer metastasized to liver Functional capacity: uses cane/walker Family History Son Cystic fibrosis Brother Esophageal cancer Maternal Aunt Lung cancer Surgical History H/O knee surgery Social History Household Members: Family Housing: House Do you presently have visiting nurse or other home services: Yes (son s girlfriend is DIE FITTER.) Patient Tobacco Use Status: Former Tobacco user Tobacco use type: Cigarette Smoked in Last 30 Days: No e-Cigarette/Vaping Use: Former Use Second Hand Smoke Exposure: No Use of substances other than those prescribed or required for medical reasons: No Substance Use Type: Marijuana Advance Directives: Yes Advance Directives on File: Yes Advance Directives Date on File: 12/12/22 service: No Current occupational status: employed Current occupation: [employer] Allergies Allergy/AdvReac Type Severity Reaction Status Date / Time prednisone [PREDNISONE] AdvReac Intermediate Psychosis Verified 08/08/23 14:38 Active Medications: Current Medications Acetaminophen (Acetaminophen 325 Mg Tablet) 650 mg PO Q6H PRN PRN Reason: Pain, Mild (Pain Scale 1-3) Acetaminophen (Acetaminophen Supp 650 Mg Supp.Rect) 650 mg LA Q6H PRN PRN Reason: Pain, Mild (Pain Scale 1-3) Morphine Sulfate (Morphine Sulfate/Ns) 100 mg in 100 mls @ 0 mls/hr IVCONT .Q0M PINEDA; Protocol Last Admin: 09/28/23 16:49 Dose: 2 mg/hr, 2 mls/hr Cefepime HCl 2 gm/ Sodium (Chloride) 50 mls @ 100 mls/hr IV Q8H PINEDA Vancomycin HCl 1,500 mg/ (Sodium Chloride) 500 mls @ 333.333 mls/hr IV ONCE ONE Stop: 09/28/23 21:29 Vancomycin HCl 750 mg/ Sodium (Chloride) 265 mls @ 265 mls/hr IV Q12H PINEDA Melatonin (Melatonin 3 Mg Tablet) 6 mg PO BEDTIME PRN PRN Reason: Insomnia Naloxone HCl (Naloxone Hcl 0.4 Mg/Ml Vial) 0.2 mg IVPUSH Q2M PRN PRN Reason: Excessive sedation or RR < 8 Ondansetron HCl (Ondansetron Hcl 4 Mg/2 Ml Vial) 4 mg IVPUSH Q8H PRN PRN Reason: Nausea and Vomiting Pantoprazole Sodium (Pantoprazole Sodium 40 Mg/10 Ml Vial) 40 mg IVPUSH BID@0630,1630 [facility] Pharmacy Consult (Consult Rx Vancomycin Dosing) 1 each MISCELLANE DAILY PRN PRN Reason: Consult order Sodium Chloride (0.9 % Sodium Chloride Flush 3 Ml Syringe) 3 ml IVFLUSH QSHIFT [facility] Home Medications Medication Instructions Recorded Confirmed Last Taken Type acetaminophen 650 mg 650 mg PO Q6H PRN Pain 08/04/22 09/28/23 Unknown History tablet,extended release Physical Exam Vital Signs and Narrative: Vital Signs: Last Vital Signs Temp 98.3 F 09/28/23 18:05 Pulse 87 09/28/23 19:37 Resp 14 09/28/23 19:37 BP 122/63 09/28/23 19:37 Pulse Ox 99 09/28/23 19:37 O2 Del Method Room Air 09/28/23 19:37 BMI result Body Mass Index 18.7 Constitutional: Alert, frail-looking. In no acute distress. Mental Status: Oriented to person, place and time. Eyes: Pupils are equal, round, and reactive to light. Ear, Nose, and Throat: Oropharynx clear, mucous membranes moist. Ears and nose without deformities. Trachea midline. Respiratory: Clear to auscultation bilaterally. No wheezing, rales, or rhonchi. Cardiovascular: S1, S2 regular. No murmurs, rubs, or gallops. Gastrointestinal: Abdomen soft, diffusely tender. Ostomy in place with black/dark green liquid output. Normal bowel sounds. Neurologic: Cranial nerves II-XII are grossly intact bilaterally. No focal neurological deficits. Moves all extremities spontaneously. Skin: Warm, dry. Musculoskeletal: No cyanosis or clubbing. Extremities: No edema. Psychiatric: Normal mood and affect. Results Labs Labs: Laboratory Results - last 24 hr 09/28/23 09/28/23 09/28/23 11:17 17:32 19:42 Stool Occult Blood POSITIVE COVID-19 (VANDA) Negative COVID-19 Clin Com See Note Influenza Type A (RACHEL) Negative Influenza Type B (RACHEL) Negative Influenza A & B Note See Note Blood Type A Positive Antibody Screen NEGATIVE Crossmatch See Detail Imaging Radiologist's Impressions: Impressions Chest X-Ray 09/28/23 14:40 IMPRESSION: Left greater than right lower lobe opacities concerning for multifocal infectious process. Abdomen/Pelvis CT 09/28/23 18:56 IMPRESSION: 1. Diffuse wall thickening and edema of the colon suggestive of pancolitis. Diverticulosis of the colon. Left lower quadrant ileostomy. 2. Difficult to compare liver lesions with noncontrast exam July 2023. There are partially calcified or treated lesion seen in both lobes of the liver. Question slightly in size, larger lesions in the right lobe. 3. Enlarged spleen. Fleischner guidelines were followed. Assessment and Plan (1) Anemia: Status: Acute (2) Neutropenic fever: Status: Acute (3) Pancolitis: Status: Acute (4) Pneumonia: Status: Acute Plan Pt is a 63-year-old male with a PMH significant for?ILD/pulmonary fibrosis and metastatic colon cancer with metastasis to liver and lung, currently on Lonsurf with Avastin following with Dr. Mckee s/p colostomy who presents to the ED for evaluation of fever and abdominal pain. Pt will be admitted to the hospital for treatment and further evaluation of neutropenic fever in the setting of pneumonia, pancolitis, and pancytopenia. Neutropenic fever Patient's temperature 102.1 degrees at time of presentation Absolute neutrophils 0.2 In the setting of pancolitis and pneumonia Patient meets sepsis criteria: Fever, leukopenia Patient received IVF and started on broad-spectrum antibiotics in the ED Will check lactic acid Will treat with cefepime and vanco, started 09/28/2023 Neutropenic fever precautions Follow CBC Oncology consult Pancolitis In the setting of colon cancer and immunosuppression from chemotherapy Treat as above cefepime and vanco GI panle and CDiff negative Pneumonia In the setting of colon cancer and immunosuppression from chemotherapy Treat as above with cefepime and vanco Pancytopenia WBC 0.9, H and H 5.7/16.4, platelets 49 Stool positive for occult blood Possibly multifactorial: Immunosuppression from chemotherapy, as well as pancolitis and hx of colon cancer Received 3 units PRBC in ED Will treat with Protonix Will give Granix 300 mcg subQ daily, per oncology Platelet transfusion if platelets fall below 10 or if bleeding noted, per Oncology GI consult for possible GI bleed NPO after midnight for possible GI procedure tomorrow Pneumatic boots for DVT prophylaxis Colon cancer with metastasis to liver and lungs Oncology consult Continue Lonsurf Continue home analgesics: Patient on morphine pump as well as p.o. morphine and oxycodone Hyponatrenia Sodium levels 130 at time of presentation Pt received IVF in the ED Follow BMP Full Code Attending:?Dr. Chen DVT Prophylaxis: Pneumatic boots Pt will require a hospitalization of at least two nights for treatment of?neutropenic fever in the setting of pneumonia and pancolitis. Given patient's significant comorbidities including metastatic cancer currently immunocompromised on chemotherapy, patient will require hospitalization for the administration of broad-spectrum IV antibiotics and close monitoring of labs and RBC and WBC levels. Quality Stroke Does the patient have a stroke diagnosis?: No VTE Prior VTE?: No VTE Risk Level:: Medical - moderate - high VTE Device Contraindication: N/A - Device Ordered VTE Drug Contraindication: Treatment Not Indicated
[2023-09-28] MEDS: Pantoprazole Sodium 40 MG/10 ML VIAL 80 MG IVPUSH (20:13)
[2023-09-28] MEDS: vancomycin HCL 1,500 MG in 0.9 % Sodium Chloride 500 ML 333.33 MG IV (20:13)
--- NOTE | 2023-09-28 20:14 | PHA.MEDREC ---
Pharmacy Consult ? Medication Reconciliation Pharmacy has completed the medication reconciliation through claims hx and patient, patient about to recall most meds and doses/frequency, patient states he only takes dexamethasone as instructed by oncology and is not currently taking it (taken off home medications as he is not currently taken), patient states he also takes something over the counter but unable to recall name or dose, Lonsurf (instructions: must take within 1 hr after completion of meal; administer days 1-5 and 8 -12 of 28-day cycle).
[2023-09-28 20:15] LABS: Appearance Urine Clear; Color Urine Orange; Glucose Urine UA Negative (Negative); Leukocyte Esterase Urine Negative (Negative); Nitrite Urine Negative (Negative); PH 5.5 (5.0-9.0); Specific Gravity - Urine >= 1.030 (1.005-1.025); Urine Blood Negative (Negative); Urine Ketones Negative (Negative); Urine Protein Negative (Neg-Trace)
--- NOTE | 2023-09-28 21:39 | PC.NURSE ---
2107 - blood infused. lung sounds clear to auscultation. will obtain 3rd bag rbc. vss. afebrile.
--- NOTE | 2023-09-28 22:07 | PC.NURSE ---
blood infusing per tar. vss. afebrile. nad.
--- NOTE | 2023-09-28 22:12 | PC.NURSE ---
redness noted around forehead pt denies itching/diff breathing. lung sounds cta. Dr. Chen aware - to slow vanco infusion next order. no other redness/rash noted.
[2023-09-28 22:19] LABS: Lactic Acid 1.1 mmol/L (0.5-2.0)
[2023-09-29] VITALS (11 sets, daily range): BP systolic 96–131; BP diastolic 51–60; PULSE 78–95; RESP 16–20; TEMP 36.3–37.3; O2SAT 95–99; BMI 20.1
--- NOTE | 2023-09-29 01:02 | PC.NURSE ---
blood infused. iv abx hung. lung sounds cta. no reactions noted. vss afebrile. report given to [facility] rn kendra.
[2023-09-29] MEDS: cefEPime HCl 2 GM in 0.9 % Sodium Chloride 50 ML IV ×4 (01:09→22:01)
--- NOTE | 2023-09-29 01:57 | PC.NURSE ---
pt transported [place] [facility] [place] to kendra rn. die maintenance pump paperwork given to rn both verified die maintenance pump settings at bedside.
[2023-09-29] MEDS: Pantoprazole Sodium 40 MG/10 ML VIAL IVPUSH ×2 (06:03→16:15)
[2023-09-29 07:36] LABS: Eosinophils Percent Auto 4.7 % (0-4); Hemoglobin 7.2 g/dl (14.0-18.0); Imm Gran Abs Auto 0.01 X10*3/uL (0.00-0.03); Imm Gran Pct Auto 2.3 % (0.0-0.4); Lymphocytes Absolute Auto 0.3 X10*3/uL (1.2-4.9); Lymphocytes Percent Auto 79.1 % (20-40); MANUAL DIFF FLAG SCAN; Mean Corpuscular HGB Conc 35.1 g/dl (31.0-36.0); Mean Corpuscular Hemoglobin 31.7 pg (27.0-33.0); Mean Corpuscular Volume 90.3 fL (80.0-98.0); Monocytes Percent Auto 4.7 % (2-11); Neutrophils Percent Auto 9.2 % (45-73); Red Blood Count 2.27 X10*6/uL (4.60-5.80); SCAN SMEAR FLAG 1
[2023-09-29 07:47] LABS: Creatinine Clr Calc Pharmacy 88.6; Estimated Glomerular Filt Rate > 60
[2023-09-29 07:50] LABS: Alanine Aminotransferase 9 U/L (0-40); Albumin Level 2.6 g/dL (3.5-5.0); Alkaline Phosphatase 95 U/L (39-117); Anion Gap 8 (12-20); Aspartate Amino Transferase 20 U/L (5-37); Bilirubin Total 8.9 mg/dL (0.0-1.0); Blood Urea Nitrogen 26 mg/dL (9-16); Calcium 8.2 mg/dL (8.4-10.2); Carbon Dioxide 21 mmol/L (22-29); Chloride 105 mmol/L (96-108); Creatinine Clr Calc Pharmacy 94.7; Estimated Glomerular Filt Rate > 60; Glucose Random 85 mg/dL (60-115); Potassium 4.6 mmol/L (3.3-5.1); Sodium 129 mmol/L (135-145); Total Protein 5.5 g/dL (6.5-8.0)
[2023-09-29 07:54] LABS: Hematocrit 20.5 % (42.0-52.0); White Blood Count 0.4 X10*3/uL (4.8-10.8)
[2023-09-29 07:55] LABS: Platelet Count 20 X10*3/uL (160-400)
[2023-09-29 08:07] LABS: SLIDE REVIEW VERIFIED
[2023-09-29] MEDS: vancomycin HCL 750 MG in 0.9 % Sodium Chloride 250 ML 265 MG IV ×2 (08:24→20:51)
[2023-09-29] MEDS: 0.9 % Sodium Chloride Flush 3 ML SYRINGE IVFLUSH ×3 (08:32→20:57)
--- NOTE | 2023-09-29 09:58 | MHC.CM.PN ---
IMM 09/29/23 pt lives with , and son and dtr in law. His and dtr in law help take care of him. He used to have O2 concentrator at home, but did not need, so does not have it now, feels he may need it again. HCP on file and confirmed: Selena and son Tera. PCP: Jono Headley, he has an upcoming appt with him, he has not seen him for 4 years, has seen oncology regularly. Has a nurse who visits, likely from [facility]. Family to transport upon DC. CM to follow and assist with DC plan.
--- NOTE | 2023-09-29 10:38 | PM.EVENT ---
Event Note Date of Service: 09/29/23 Event Note: GI consult dictated Anemia is likely due to chemotherapy as there is no active GI bleeding. Colitis see on ct scan may reflect infectious process secondary to low wbc, and should improve with present rx. Colonoscopy not recommended at this time. Time Spent With Patient Time: Total time managing care of this patient today ____ minutes.
--- NOTE | 2023-09-29 11:50 | CONS_ITS ---
DATE OF SERVICE: 09/29/2023 REFERRING PHYSICIAN: Dr. Chen REASON FOR CONSULTATION: Question of GI bleed with anemia and occult blood in the stools. HISTORY OF PRESENT ILLNESS: Mr. Bustamante is a pleasant 63-year-old man with metastatic colon cancer, currently undergoing chemotherapy with Lonsurf and bevacizumab. This was started on September 03. He presented to the Oncology Clinic with fevers and abdominal pain despite narcotic pain medications. Laboratory studies documented neutropenia and acute anemia with a drop in his hematocrit from 25.3 on September 17 to 16.4 on September 28. He denies any bleeding from his ostomy. He does have occasional nonbloody discharge from the rectum and had used am enema the day before admission for rectal irrigation. He was sent to the emergency department where CT scanning was obtained, which is reviewed. This is interpreted as showing diffuse wall thickening and edema of the colon suggestive of pancolitis in addition to his previously known colon cancer and metastatic disease. He was admitted to the hospital and transfused. He has had no bleeding overnight. Laboratory studies showed worsening of his white blood cell count and platelet count. His hematocrit did improve with transfusion. He has been treated with broad-spectrum antibiotics. He denies any history of peptic ulcer disease or GI bleeding. He has not had a recent colonoscopy. He has no history of colitis and does not take large amounts of NSAIDs or alcohol. PAST MEDICAL HISTORY: 1. Metastatic colon cancer requiring diverting ileostomy. 2. Interstitial lung disease with pulmonary fibrosis and lung and pulmonary nodule. 3. Colon polyps. 4. Hyponatremia. CURRENT MEDICATIONS: His current medication list is reviewed in the chart. ALLERGIES: THE PREDNISONE IS LISTED AN ALLERGY, BUT HE HAD NO ANAPHYLACTIC REACTION TO THIS. FAMILY HISTORY: A sister had polyps. A brother had esophageal cancer. SOCIAL HISTORY: There is no current tobacco, alcohol, or substance abuse currently. PAST SURGICAL HISTORY: Includes knee surgery and his diverting ileostomy. REVIEW OF SYSTEMS: SKIN: No pruritus. HEENT: Negative. CARDIOPULMONARY: He denies any change in his baseline breathing. GASTROINTESTINAL: As above. GENITOURINARY: Negative. NEUROPSYCHIATRIC: Negative. PHYSICAL EXAMINATION: GENERAL: Shows a pleasant male, lying comfortably in bed. VITAL SIGNS: Stable. SKIN: Anicteric. He appears mildly cachectic. HEENT: Shows no scleral icterus. NECK: Without lymphadenopathy or thyromegaly. LUNGS: Clear. HEART: Shows a regular rate and rhythm. S1, S2. No murmur. ABDOMEN: Soft. Without focal masses or tenderness. There is an ileostomy present in the left lower quadrant draining greenish yellow liquid. Bowel sounds are present. No organomegaly is noted extremities are without edema. DIAGNOSTIC DATA: Laboratory data and imaging studies are reviewed. IMPRESSION: 1. Metastatic colon cancer. 2. Pancytopenia. 3. CT scan showing wall thickening consistent with colitis. It appears most likely that his acute anemia is related to the chemotherapy regimen he has been on as opposed to GI blood loss as he has no active bleeding from the ileostomy or from the rectum and has not shown any bleeding since admission. I agree with supporting his hematocrit with blood transfusions as needed. He is on prophylactic PPI coverage, but has no history of ulcer disease. His CT scanning showing thickening, may represent an acute infectious colitis given his neutropenia. This will likely respond to supportive therapy with antibiotic treatment and improve as his white count does. Colonoscopy is contraindicated because of his thrombocytopenia and febrile neutropenia and would likely not place change roof bolter at this time. Thanks for asking me to see him. I will follow him in the hospital with you. MD KYLIE Londono/NICOLE / [phone]
[2023-09-29] MEDS: Tbo-Filgrastim 300 MCG/0.5 ML SYRINGE SUBCUT (12:21)
--- NOTE | 2023-09-29 14:58 | HO.PM.IMPN ---
Subjective Subjective Date of Service: 09/29/23 Interval History: Being followed for neutropenic fever with pancolitis and pneumonia Patient feeling better abdominal pain has improved significantly, is NPO, colostomy output with clear fluid no dark stools, denies fever, no chills, shortness of breath and cough has improved since admission. Review of Systems All other system reviewed and negative Physical Exam Vital Signs: Vital Signs: Last Vital Signs Temp 97.9 F 09/29/23 07:30 Pulse 86 09/29/23 07:30 Resp 18 09/29/23 07:30 BP 96/53 L 09/29/23 07:30 Pulse Ox 97 09/29/23 07:30 O2 Del Method Room Air 09/29/23 07:30 BMI result Body Mass Index 20.1 Const: Other: General awake alert x3, resting comfortably in no acute distress. Neck supple no JVD. CVS regular rate rhythm, Respiratory lungs clear to auscultation, no respiratory distress, no wheeze, no rhonchi. Gastrointestinal abdomen soft, non tender, bowel sounds audible, colostomy bag with clear liquid and small green stools Extremities no edema. Neuro nonfocal Skin no rash Psych appropriate affect Objective Data Active Medications Acetaminophen (Acetaminophen 325 Mg Tablet) 650 mg PO Q6H PRN PRN Reason: Pain, Mild (Pain Scale 1-3) Acetaminophen (Acetaminophen Supp 650 Mg Supp.Rect) 650 mg [place] Q6H PRN PRN Reason: Pain, Mild (Pain Scale 1-3) Morphine Sulfate (Morphine Sulfate/Ns) 100 mg in 100 mls @ 0 mls/hr IVCONT .Q0M [facility]; Protocol Last Admin: 09/28/23 16:49 Dose: 2 mg/hr, 2 mls/hr Documented By: LINDA Cefepime HCl 2 gm/ Sodium (Chloride) 50 mls @ 100 mls/hr IV Q8H [facility] Last Infusion: 09/29/23 09:29 Dose: Infused Documented By: CHACE Vancomycin HCl 750 mg/ Sodium (Chloride) 265 mls @ 265 mls/hr IV Q12H [facility] Last Infusion: 09/29/23 13:17 Dose: Infused Documented By: CHACE Melatonin (Melatonin 3 Mg Tablet) 6 mg PO BEDTIME PRN PRN Reason: Insomnia Naloxone HCl (Naloxone Hcl 0.4 Mg/Ml Vial) 0.2 mg IVPUSH Q2M PRN PRN Reason: Excessive sedation or RR < 8 Ondansetron HCl (Ondansetron Hcl 4 Mg/2 Ml Vial) 4 mg IVPUSH Q8H PRN PRN Reason: Nausea and Vomiting Pantoprazole Sodium (Pantoprazole Sodium 40 Mg/10 Ml Vial) 40 mg IVPUSH BID@0630,1630 [facility] Last Admin: 09/29/23 06:03 Dose: 40 mg Documented By: JADE Pharmacy Consult (Consult Rx Vancomycin Dosing) 1 each MISCELLANE DAILY PRN PRN Reason: Consult order Sodium Chloride (0.9 % Sodium Chloride Flush 3 Ml Syringe) 3 ml IVFLUSH QSHIFT [facility] Last Admin: 09/29/23 08:32 Dose: 3 ml Documented By: MICHAEL Labs 09/29/23 07:23 09/29/23 07:23 Labs: Laboratory Results - last 24 hr 09/28/23 09/28/23 09/28/23 11:17 17:32 19:42 MCV MCH MCHC RDW Plt Count MPV Immature Gran % (Auto) Neut % (Auto) Lymph % (Auto) [place] % (Auto) Eos % (Auto) Baso % (Auto) Lymph # (Auto) [place] # (Auto) Eos # (Auto) Baso # (Auto) Abs Immat Gran (auto) Absolute Neuts (auto) Absolute Nucleated RBC Nucleated RBC % (auto) Smear Tech's Comments Anion Gap Estim Creat Clear Calc Estimated GFR Random Glucose Lactic Acid Calcium Total Bilirubin AST ALT Alkaline Phosphatase Total Protein Albumin Urine Color [place] A Urine Appearance Clear Urine pH 5.5 Ur Specific [place] >= 1.030 H Urine Protein Negative Urine Glucose (UA) Negative Urine Ketones Negative Urine Blood Negative Urine Nitrite Negative Ur Leukocyte Esterase Negative Stool Occult Blood POSITIVE COVID-19 (VANDA) Negative COVID-19 Clin Com See Note Influenza Type A (RACHEL) Negative Influenza Type B (RACHEL) Negative Influenza A & B Note See Note Blood Type A Positive Antibody Screen NEGATIVE Crossmatch See Detail 09/28/23 09/29/23 09/29/23 22:03 07:23 07:23 MCV 90.3 MCH 31.7 MCHC 35.1 RDW 16.0 Plt Count 20 L* D MPV Not Reportable Immature Gran % (Auto) 2.3 H Neut % (Auto) 9.2 L Lymph % (Auto) 79.1 H [place] % (Auto) 4.7 Eos % (Auto) 4.7 H Baso % (Auto) 0.0 Lymph # (Auto) 0.3 L [place] # (Auto) 0.0 L Eos # (Auto) 0.0 Baso # (Auto) 0.0 Abs Immat Gran (auto) 0.01 Absolute Neuts (auto) 0.0 L Absolute Nucleated RBC 0.000 Nucleated RBC % (auto) 0.0 Smear Tech's Comments VERIFIED Anion Gap 8 L Estim Creat Clear Calc 94.7 88.6 Estimated GFR > 60 Random Glucose Lactic Acid 1.1 Calcium Total Bilirubin AST ALT Alkaline Phosphatase Total Protein Albumin Urine Color Urine Appearance Urine pH Ur Specific [place] Urine Protein Urine Glucose (UA) Urine Ketones Urine Blood Urine Nitrite Ur Leukocyte Esterase Stool Occult Blood COVID-19 (VANDA) COVID-19 Clin Com Influenza Type A (RACHEL) Influenza Type B (RACHEL) Influenza A & B Note Blood Type Antibody Screen Crossmatch 09/29/23 07:23 MCV MCH MCHC RDW Plt Count MPV Immature Gran % (Auto) Neut % (Auto) Lymph % (Auto) [place] % (Auto) Eos % (Auto) Baso % (Auto) Lymph # (Auto) [place] # (Auto) Eos # (Auto) Baso # (Auto) Abs Immat Gran (auto) Absolute Neuts (auto) Absolute Nucleated RBC Nucleated RBC % (auto) Smear Tech's Comments Anion Gap Estim Creat Clear Calc Estimated GFR > 60 Random Glucose 85 Lactic Acid Calcium 8.2 L D Total Bilirubin 8.9 H AST 20 ALT 9 Alkaline Phosphatase 95 Total Protein 5.5 L Albumin 2.6 L Urine Color Urine Appearance Urine pH Ur Specific [place] Urine Protein Urine Glucose (UA) Urine Ketones Urine Blood Urine Nitrite Ur Leukocyte Esterase Stool Occult Blood COVID-19 (VANDA) COVID-19 Clin Com Influenza Type A (RACHEL) Influenza Type B (RACHEL) Influenza A & B Note Blood Type Antibody Screen Crossmatch Assessment and Plan (1) Pancolitis: Status: Acute (2) Neutropenic fever: Status: Acute (3) Pneumonia: Status: Acute Plan 63-year-old male with a PMH significant for?ILD/pulmonary fibrosis and metastatic colon cancer with metastasis to liver and lung, currently on Lonsurf with Avastin following with Dr. Dulala s/p colostomy who presents to the ED for evaluation of fever and abdominal pain. Pt will be admitted to the hospital for treatment and further evaluation of neutropenic fever in the setting of pneumonia, pancolitis, and pancytopenia. Neutropenic fever with pancolitis and multifocal pneumonia No recurrent fever since presentation WBC improved to 0.4 Abdominal pain improved Patient meets sepsis criteria: Fever, leukopenia Status post IV fluids, normal lactic acid Continue iv cefepime and vanco, started 09/28/2023 Neutropenic fever precautions Follow CBC Oncology consult Pancytopenia WBC 0.9, H and H 5.7/16.4, platelets 49 Hematocrit improved but remains low at 20 will give additional 1 unit of packed RBC, Stool positive for occult blood Possibly multifactorial: Immunosuppression from chemotherapy, pancytopenia by immunosuppression chemotherapy Continue Granix 300 mcg subQ daily , Platelet transfusion if platelets fall below 10 or if bleeding noted Seen by gastroenterology no indication for endoscopy placed on regular diet Colon cancer with metastasis to liver and lungs Oncology consult hold Lonsurf Continue home analgesics: Patient on morphine pump as well as p.o. morphine and oxycodone Hyponatremia NA 129 Likely due to dehydration, continue IV fluids,Follow BMP Full Code DVT Prophylaxis: Pneumatic boots Pt will require continued inpatient hospitalization for neutropenic fever receiving IV antibiotics treatment can not be provided in less acute setting. Quality Stroke Does the patient have a stroke diagnosis?: No VTE Prior VTE?: No VTE Risk Level:: Medical - moderate - high VTE Device Contraindication: N/A - Device Ordered VTE Drug Contraindication: Treatment Not Indicated
[2023-09-29] MEDS: Morphine Sulfate/NS 100 MG/100 ML PLAST..BAG IVCONT (16:03)
[2023-09-29 19:26] LABS: Vancomycin Random 12.7 mcg/mL (15-20)
--- NOTE | 2023-09-29 19:41 | HE.PHANOTE ---
vancomycin addendum: after load and 1 additional dose, trough is 12.7. Predicted AUC of 455 will keep same regimen and repeat a new level after 2 more doses
[2023-09-30] VITALS (8 sets, daily range): BP systolic 96–129; BP diastolic 50–62; PULSE 71–89; RESP 16–20; TEMP 36.3–37.3; O2SAT 96–99
[2023-09-30] MEDS: Pantoprazole Sodium 40 MG/10 ML VIAL IVPUSH (06:11)
[2023-09-30] MEDS: cefEPime HCl 2 GM in 0.9 % Sodium Chloride 50 ML IV ×3 (06:31→23:59)
[2023-09-30 07:59] LABS: Hematocrit 21.3 % (42.0-52.0); Hemoglobin 7.5 g/dl (14.0-18.0); Mean Corpuscular HGB Conc 35.2 g/dl (31.0-36.0); Mean Corpuscular Hemoglobin 31.8 pg (27.0-33.0); Mean Corpuscular Volume 90.3 fL (80.0-98.0); Red Blood Count 2.36 X10*6/uL (4.60-5.80); Red Cell Distribution Width 16.2 % (11.0-16.0)
[2023-09-30] MEDS: vancomycin HCL 750 MG in 0.9 % Sodium Chloride 250 ML 265 MG IV (08:02)
[2023-09-30] MEDS: 0.9 % Sodium Chloride Flush 3 ML SYRINGE IVFLUSH ×3 (08:02→22:19)
[2023-09-30] MEDS: Cholestyramine (With Sugar) 4 GM POWD.PACK PO ×2 (08:02→22:31)
[2023-09-30 08:08] LABS: PLT ABN DIST 1; Platelet Count 15 X10*3/uL (160-400)
[2023-09-30 08:10] LABS: Anion Gap 9 (12-20); Blood Urea Nitrogen 20 mg/dL (9-16); Calcium 8.2 mg/dL (8.4-10.2); Carbon Dioxide 19 mmol/L (22-29); Chloride 106 mmol/L (96-108); Creatinine Clr Calc Pharmacy 94.7; Estimated Glomerular Filt Rate > 60; Glucose Random 95 mg/dL (60-115); Potassium 3.9 mmol/L (3.3-5.1); Sodium 130 mmol/L (135-145)
--- NOTE | 2023-09-30 11:29 | P.PNGI_ITS ---
Subjective Subjective Date of Service: 09/30/23 Interval History: feels better pain control is adequate Critical Care Time (minutes): 0 Physical Exam 2 Vital Signs: Vital Signs: Last Vital Signs Temp 99.2 F 09/30/23 08:00 Pulse 83 09/30/23 08:00 Resp 16 09/30/23 08:00 BP 96/51 L 09/30/23 08:00 Pulse Ox 97 09/30/23 08:00 O2 Del Method Room Air 09/30/23 08:00 BMI result Body Mass Index 20.1 GI: Other: abdomen is soft and nontender ileostomy output nonbloody no rectal discharge reported Objective Data Labs 09/30/23 07:34 09/30/23 07:34 Labs: Laboratory Results - last 24 hr 09/28/23 09/29/23 09/30/23 11:17 18:56 07:34 WBC 0.4 L* RBC 2.36 L Hgb 7.5 L Hct 21.3 L MCV 90.3 MCH 31.8 MCHC 35.2 RDW 16.2 H Plt Count 15 L* MPV Not Reportable Absolute Nucleated RBC 0.000 Nucleated RBC % (auto) 0.0 Sodium 130 L Potassium 3.9 Chloride 106 Carbon Dioxide 19 L Anion Gap 9 L BUN 20 H Creatinine 0.72 Estim Creat Clear Calc 94.7 Estimated GFR > 60 Random Glucose 95 Calcium 8.2 L Random Vancomycin 12.7 L Blood Type A Positive Antibody Screen NEGATIVE Crossmatch See Detail Procedures Date of Service Date of Service: 09/30/23 Progress Note: A&P Assessment and plan (1) Pancolitis: Status: Acute Plan remains pancytopenic due to chemotherapy no gi bleeding continue supportive care. Time Spent With Patient Time: Total time managing care of this patient today ____ minutes. Quality Stroke Does the patient have a stroke diagnosis?: No VTE Prior VTE?: No VTE Risk Level:: Medical - moderate - high VTE Device Contraindication: N/A - Device Ordered VTE Drug Contraindication: Treatment Not Indicated
[2023-09-30 12:23] LABS: White Blood Count 0.4 X10*3/uL (4.8-10.8)
--- NOTE | 2023-09-30 13:28 | HO.PM.IMPN ---
Subjective Subjective Date of Service: 09/30/23 Interval History: Feeling significantly better, good pain control with PLANISHER morphine, tolerating diet no nausea, no vomiting, denies shortness of breath ,no cough, concern about transitioning back to by mouth morphine since feels not absorbing MS Contin tablets, no acute events overnight. Review of Systems All other system reviewed and negative. Physical Exam Vital Signs: Vital Signs: Last Vital Signs Temp 99.2 F 09/30/23 08:00 Pulse 83 09/30/23 08:00 Resp 16 09/30/23 08:00 BP 96/51 L 09/30/23 08:00 Pulse Ox 97 09/30/23 08:00 O2 Del Method Room Air 09/30/23 08:00 BMI result Body Mass Index 20.1 Const: Other: General awake alert x3, resting comfortably in no acute distress. Neck supple no JVD. CVS regular rate rhythm, Respiratory lungs clear to auscultation, no respiratory distress, no wheeze, no rhonchi. Gastrointestinal abdomen soft, non tender, bowel sounds audible, colostomy bag with small green stools Extremities no edema. Neuro non focal Skin no rash Psych appropriate affect Objective Data Active Medications Acetaminophen (Acetaminophen 325 Mg Tablet) 650 mg PO Q6H PRN PRN Reason: Pain, Mild (Pain Scale 1-3) Acetaminophen (Acetaminophen Supp 650 Mg Supp.Rect) 650 mg [place] Q6H PRN PRN Reason: Pain, Mild (Pain Scale 1-3) Cholestyramine Resin (Cholestyramine (With Sugar) 4 Gm Powd.Pack) 4 gm PO BID [facility] Last Admin: 09/30/23 08:02 Dose: 4 gm Documented By: CHACE Fentanyl (Fentanyl 25 Mcg Patch.Td72) 25 mcg TRANSDERMA Q72H [facility] Morphine Sulfate (Morphine Sulfate/Ns) 100 mg in 100 mls @ 0 mls/hr IVCONT .Q0M [facility]; Protocol Last Admin: 09/29/23 16:03 Dose: 2 mg/hr, 2 mls/hr Documented By: MICHAEL Cefepime HCl 2 gm/ Sodium (Chloride) 50 mls @ 100 mls/hr IV Q8H [facility] Last Infusion: 09/30/23 07:22 Dose: Infused Documented By: CHACE Vancomycin HCl 750 mg/ Sodium (Chloride) 265 mls @ 265 mls/hr IV Q12H [facility] Last Infusion: 09/30/23 09:24 Dose: Infused Documented By: CHACE Melatonin (Melatonin 3 Mg Tablet) 6 mg PO BEDTIME PRN PRN Reason: Insomnia Naloxone HCl (Naloxone Hcl 0.4 Mg/Ml Vial) 0.2 mg IVPUSH Q2M PRN PRN Reason: Excessive sedation or RR < 8 Ondansetron HCl (Ondansetron Hcl 4 Mg/2 Ml Vial) 4 mg IVPUSH Q8H PRN PRN Reason: Nausea and Vomiting Pantoprazole Sodium (Pantoprazole Sodium 40 Mg/10 Ml Vial) 40 mg IVPUSH BID@0630,1630 [facility] Last Admin: 09/30/23 06:11 Dose: 40 mg Documented By: JADE Pharmacy Consult (Consult Rx Vancomycin Dosing) 1 each MISCELLANE DAILY PRN PRN Reason: Consult order Sodium Chloride (0.9 % Sodium Chloride Flush 3 Ml Syringe) 3 ml IVFLUSH QSHIFT [facility] Last Admin: 09/30/23 08:03 Dose: 3 ml Documented By: CHACE Labs 09/30/23 07:34 09/30/23 07:34 Labs: Laboratory Results - last 24 hr 09/28/23 09/29/23 09/30/23 11:17 18:56 07:34 MCV 90.3 MCH 31.8 MCHC 35.2 RDW 16.2 H Plt Count 15 L* MPV Not Reportable Absolute Nucleated RBC 0.000 Nucleated RBC % (auto) 0.0 Anion Gap 9 L Estim Creat Clear Calc 94.7 Estimated GFR > 60 Random Glucose 95 Calcium 8.2 L Random Vancomycin 12.7 L Blood Type A Positive Antibody Screen NEGATIVE Crossmatch See Detail Assessment and Plan (1) Pancolitis: Status: Acute (2) Neutropenic fever: Status: Acute (3) Pneumonia: Status: Acute Plan 63-year-old male with a PMH significant for?ILD/pulmonary fibrosis and metastatic colon cancer with metastasis to liver and lung, currently on Lonsurf with Avastin following with Dr. Mckee s/p colostomy who presents to the ED for evaluation of fever and abdominal pain. Pt will be admitted to the hospital for treatment and further evaluation of neutropenic fever in the setting of pneumonia, pancolitis, and pancytopenia. Neutropenic fever with pancolitis and multifocal pneumonia No recurrent fever since presentation WBC remains low at 0.4 Abdominal pain improved sepsis criteria: With Fever, leukopenia Status post IV fluids, normal lactic acid Continue iv cefepime and vanco, started 09/28/2023 Neutropenic fever precautions, blood cultures x2 negative Follow CBC Oncology consult Pancytopenia WBC 0.9, H and H 5.7/16.4, platelets 49 Hematocrit improved but remains low at 21 s/p 4 unit of packed RBC, Stool positive for occult blood, will hold further blood transfusion Possibly multifactorial: Immunosuppression from chemotherapy, pancytopenia by immunosuppression chemotherapy Continue Granix 300 mcg subQ daily d3 , Platelet transfusion if platelets fall below 10 or if bleeding noted Seen by gastroenterology no indication for endoscopy placed on regular diet Will DC IV Protonix and transition to by mouth PPI, follow CBC. Colon cancer with metastasis to liver and lungs hold Lonsurf on morphine pump , 2 mg q.1 hour hours with good pain control patient is concerned about resuming home medication MS Contin 30 b.i.d. and as needed oxycodone since noted Morphine tabs in colostomy bag , will wean morphine PLANISHER and place patient on fentanyl patch. Hyponatremia Sodium improved to 130 Likely due to dehydration, s/p IV fluids,Follow BMP Full Code DVT Prophylaxis: Pneumatic boots Pt will require continued inpatient hospitalization for neutropenic fever receiving IV antibiotics treatment can not be provided in less acute setting. Quality Stroke Does the patient have a stroke diagnosis?: No VTE Prior VTE?: No VTE Risk Level:: Medical - moderate - high VTE Device Contraindication: N/A - Device Ordered VTE Drug Contraindication: Treatment Not Indicated
[2023-09-30] MEDS: Tbo-Filgrastim 300 MCG/0.5 ML SYRINGE SUBCUT (14:31)
[2023-09-30] MEDS: Omeprazole 20 MG CAPSULE.DR PO (15:33)
[2023-09-30] MEDS: Morphine Sulfate/NS 100 MG/100 ML PLAST..BAG IVCONT (15:35)
[2023-09-30] MEDS: fentaNYL 25 MCG PATCH.TD72 TRANSDERMA (17:02)
[2023-09-30 19:30] LABS: Vancomycin Trough 11.2 mcg/mL (10.0-20.0)
--- NOTE | 2023-09-30 19:38 | HE.PHANOTE ---
RE: VANCO DOSING Trough came back as 11.2 mg/L. Due to indication of respiratory infection, dose was increased to 1000 mg q12h starting @2100 09/30/23 with predicted AUC of 519 mg/L.hr and trough of 15 mg/L. Next random is scheduled @1900 on 10/01/23.
[2023-09-30] MEDS: vancomycin HCL 1,000 MG in 0.9 % Sodium Chloride 250 ML 270 MG IV (22:19)
[2023-10-01 02:48] VITALS: BP 101/54; PULSE 80; RESP 18; TEMP 36.6; O2SAT 96
[2023-10-01 06:26] LABS: Hematocrit 22.6 % (42.0-52.0); Hemoglobin 8.1 g/dl (14.0-18.0); Mean Corpuscular HGB Conc 35.8 g/dl (31.0-36.0); Mean Corpuscular Hemoglobin 31.6 pg (27.0-33.0); Mean Corpuscular Volume 88.3 fL (80.0-98.0); Red Blood Count 2.56 X10*6/uL (4.60-5.80); Red Cell Distribution Width 15.9 % (11.0-16.0)
[2023-10-01] MEDS: cefEPime HCl 2 GM in 0.9 % Sodium Chloride 50 ML IV ×3 (06:33→22:41)
[2023-10-01] MEDS: Omeprazole 20 MG CAPSULE.DR PO ×2 (06:34→17:26)
[2023-10-01 06:43] LABS: Anion Gap 9 (12-20); Blood Urea Nitrogen 16 mg/dL (9-16); Calcium 8.3 mg/dL (8.4-10.2); Carbon Dioxide 17 mmol/L (22-29); Chloride 107 mmol/L (96-108); Creatinine Clr Calc Pharmacy 92.2; Estimated Glomerular Filt Rate > 60; Glucose Random 124 mg/dL (60-115); Potassium 3.5 mmol/L (3.3-5.1); Sodium 129 mmol/L (135-145)
[2023-10-01 07:07] VITALS: BP 102/56; PULSE 80; RESP 18; TEMP 37.6; O2SAT 99
[2023-10-01 07:40] LABS: WBC ABN SCTR FOR CBC 1
[2023-10-01 07:41] LABS: Platelet Count 15 X10*3/uL (160-400); White Blood Count 0.5 X10*3/uL (4.8-10.8)
[2023-10-01] MEDS: 0.9 % Sodium Chloride Flush 3 ML SYRINGE IVFLUSH ×3 (09:53→23:45)
--- NOTE | 2023-10-01 11:15 | P.PNGI_ITS ---
Subjective Subjective Date of Service: 10/01/23 Interval History: no gi bleeding Critical Care Time (minutes): 0 Physical Exam 2 Vital Signs: Vital Signs: Last Vital Signs Temp 99.6 F 10/01/23 07:07 Pulse 80 10/01/23 07:07 Resp 18 10/01/23 07:07 BP 102/56 L 10/01/23 07:07 Pulse Ox 99 10/01/23 07:07 O2 Del Method Room Air 10/01/23 07:07 BMI result Body Mass Index 20.1 GI: Other: abdomen is soft ostomy without blood Objective Data Labs 10/03/23 05:45 10/03/23 05:45 Labs: Laboratory Results - last 24 hr 09/30/23 09/30/23 10/01/23 07:34 18:57 06:08 WBC 0.4 L* 0.5 L* RBC 2.56 L Hgb 8.1 L Hct 22.6 L MCV 88.3 MCH 31.6 MCHC 35.8 RDW 15.9 Plt Count 15 L* MPV Not Reportable Absolute Nucleated RBC 0.000 Nucleated RBC % (auto) 0.0 Sodium 129 L Potassium 3.5 Chloride 107 Carbon Dioxide 17 L Anion Gap 9 L BUN 16 Creatinine 0.74 Estim Creat Clear Calc 92.2 Estimated GFR > 60 Random Glucose 124 H Calcium 8.3 L Vancomycin Trough 11.2 Procedures Date of Service Date of Service: 10/03/23 Progress Note: A&P Assessment and plan (1) Pancolitis: Status: Acute Assessment and Plan: appears stable continue present rx Time Spent With Patient Time: Total time managing care of this patient today ____ minutes. Quality Stroke Does the patient have a stroke diagnosis?: No VTE Prior VTE?: No VTE Risk Level:: Medical - moderate - high VTE Device Contraindication: N/A - Device Ordered VTE Drug Contraindication: Treatment Not Indicated
[2023-10-01 12:49] VITALS: BMI 20.1
[2023-10-01 14:12] VITALS: BP 118/58; PULSE 74; RESP 16; TEMP 36.8; O2SAT 98
[2023-10-01 15:18] VITALS: BP 99/57; PULSE 73; RESP 16; TEMP 36.6; O2SAT 98
--- NOTE | 2023-10-01 15:25 | P.PNIM_ITS ---
Subjective Subjective Date of Service: 10/01/23 Interval History: Being followed for neutropenic fever and pancolitis, feeling better complain of abdominal pain that is chronic but better control current IV morphine and Fentanyl patch, no nausea no vomiting has been drinking lot of fluids noted to have liquidy stool in colostomy. Review of Systems All other system reviewed and negative. Physical Exam 2 Vital Signs: Vital Signs: Last Vital Signs Temp 97.8 F 10/01/23 15:18 Pulse 73 10/01/23 15:18 Resp 16 10/01/23 15:18 BP 99/57 L 10/01/23 15:18 Pulse Ox 98 10/01/23 15:18 O2 Del Method Room Air 10/01/23 15:18 BMI result Body Mass Index 20.1 Const: Other: General awake alert x3, resting comfortably in no acute distress. Neck supple no JVD. CVS regular rate rhythm, Respiratory lungs clear to auscultation, no respiratory distress, no wheeze, no rhonchi. Gastrointestinal abdomen soft, lower abdominal tenderness, bowel sounds audible, colostomy bag with watery stool Extremities no edema. Neuro non focal Skin macular papular rash both elbows Psych appropriate affect Objective Data Active Medications Acetaminophen (Acetaminophen 325 Mg Tablet) 650 mg PO Q6H PRN PRN Reason: Pain, Mild (Pain Scale 1-3) Acetaminophen (Acetaminophen Supp 650 Mg Supp.Rect) [address] Q6H PRN PRN Reason: Pain, Mild (Pain Scale 1-3) Cholestyramine Resin (Cholestyramine (With Sugar) 4 Gm Powd.Pack) 4 gm PO BID [facility] Last Admin: 10/01/23 09:53 Dose: Not Given Documented By: COURTNEY Non-Admin Reason: Patient took own Fentanyl (Fentanyl 25 Mcg Patch.Td72) 25 mcg TRANSDERMA Q72H [facility] Last Admin: 09/30/23 17:02 Dose: 25 mcg Documented By: N-RIVLA Cefepime HCl 2 gm/ Sodium (Chloride) 50 mls @ 100 mls/hr IV Q8H [facility] Last Infusion: 10/01/23 15:15 Dose: Infused Documented By: COURTNEY Melatonin (Melatonin 3 Mg Tablet) 6 mg PO BEDTIME PRN PRN Reason: Insomnia Morphine Sulfate (Morphine Sulfate 2 Mg/Ml Cartridge) 2 mg IVPUSH Q3H PRN; Protocol PRN Reason: Pain, Severe (Pain Scale 7-10) Omeprazole (Omeprazole 20 Mg Sera.) 20 mg PO BID@0630,1630 [facility] Last Admin: 10/01/23 06:34 Dose: 20 mg Documented By: FRANNIE Ondansetron HCl (Ondansetron Hcl 4 Mg/2 Ml Vial) 4 mg IVPUSH Q8H PRN PRN Reason: Nausea and Vomiting Oxycodone HCl (Oxycodone Hcl Immed Release 5 Mg Tablet) 5 mg PO Q4H PRN PRN Reason: Pain, Moderate(Pain Scale 4-6) Pharmacy Consult (Consult Rx Vancomycin Dosing) 1 each MISCELLANE DAILY PRN PRN Reason: Consult order Sodium Chloride (0.9 % Sodium Chloride Flush 3 Ml Syringe) 3 ml IVFLUSH QSHIFT [facility] Last Admin: 10/01/23 09:53 Dose: 3 ml Documented By: COURTNEY Labs 10/01/23 06:08 10/01/23 06:08 Labs: Laboratory Results - last 24 hr 09/30/23 10/01/23 18:57 06:08 MCV 88.3 MCH 31.6 MCHC 35.8 RDW 15.9 Plt Count 15 L* MPV Not Reportable Absolute Nucleated RBC 0.000 Nucleated RBC % (auto) 0.0 Anion Gap 9 L Estim Creat Clear Calc 92.2 Estimated GFR > 60 Random Glucose 124 H Calcium 8.3 L Vancomycin Trough 11.2 Assessment and Plan (1) Pancolitis: Status: Acute (2) Neutropenic fever: Status: Acute (3) Pneumonia: Status: Acute Plan 63-year-old male with a PMH significant for?ILD/pulmonary fibrosis and metastatic colon cancer with metastasis to liver and lung, currently on Lonsurf with Avastin following with Dr. Mckee s/p colostomy who presents to the ED for evaluation of fever and abdominal pain. Pt will be admitted to the hospital for treatment and further evaluation of neutropenic fever in the setting of pneumonia, pancolitis, and pancytopenia. Neutropenic fever with pancolitis and multifocal pneumonia No recurrent fever since presentation WBC remains low at 0.5 Abdominal pain improved but has chronic pain sepsis criteria: With Fever, leukopenia Status post IV fluids, normal lactic acid Continue iv cefepime started 09/28/2023, will DC IV vanco Neutropenic fever precautions, blood cultures x2 negative Follow CBC Seen by Oncology follow recommendations Pancytopenia WBC 0.9, H and H 5.9/16.4, platelets 49 on admission Hematocrit improved but remains low at 22.6 s/p 4 unit of packed RBC, Stool positive for occult blood, will hold further blood transfusion Possibly multifactorial: Immunosuppression from chemotherapy s/p Granix 300 mcg subQ daily x3 days Platelet transfusion if platelets fall below 10 or if bleeding noted Seen by gastroenterology no indication for endoscopy tolerating regular diet Continue by mouth PPI, follow CBC. 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 and as needed oxycodone but patient not absorbing home medication. Mild acute Hyponatremia Sodium fluctuating 129 to 130 Appears euvolemic follow serum osmolality Full Code DVT Prophylaxis: Pneumatic boots Pt will require continued inpatient hospitalization for neutropenic fever receiving IV antibiotics treatment can not be provided in less acute setting. Quality Stroke Does the patient have a stroke diagnosis?: No VTE Prior VTE?: No VTE Risk Level:: Medical - moderate - high VTE Device Contraindication: N/A - Device Ordered VTE Drug Contraindication: Treatment Not Indicated
[2023-10-01] MEDS: Cholestyramine (With Sugar) 4 GM POWD.PACK PO (17:48)
[2023-10-01] MEDS: Morphine Sulfate 2 MG/ML CARTRIDGE IVPUSH ×2 (18:20→23:53)
[2023-10-01 23:33] VITALS: BP 101/59; PULSE 79; RESP 20; TEMP 36.9; O2SAT 98
[2023-10-02 04:47] VITALS: BP 154/80
[2023-10-02] MEDS: Omeprazole 20 MG CAPSULE.DR PO ×2 (05:03→16:27)
[2023-10-02] MEDS: oxyCODONE HCl Immed Release 5 MG TABLET PO ×4 (05:03→23:30)
[2023-10-02 07:03] LABS: Hematocrit 23.6 % (42.0-52.0); Hemoglobin 8.2 g/dl (14.0-18.0); Mean Corpuscular HGB Conc 34.7 g/dl (31.0-36.0); Mean Corpuscular Hemoglobin 30.8 pg (27.0-33.0); Mean Corpuscular Volume 88.7 fL (80.0-98.0); Red Blood Count 2.66 X10*6/uL (4.60-5.80); Red Cell Distribution Width 16.1 % (11.0-16.0)
[2023-10-02 07:14] VITALS: BP 104/63; PULSE 85; RESP 18; TEMP 37.3; O2SAT 98
[2023-10-02 07:20] LABS: Blood Urea Nitrogen 21 mg/dL (9-16); Calcium 8.7 mg/dL (8.4-10.2); Creatinine Clr Calc Pharmacy 79.3; Estimated Glomerular Filt Rate > 60; Glucose Random 135 mg/dL (60-115)
[2023-10-02 07:25] LABS: Platelet Count 16 X10*3/uL (160-400); White Blood Count 0.5 X10*3/uL (4.8-10.8)
[2023-10-02 07:32] LABS: Osmolality, Serum 272 mosm/kg (281-305)
[2023-10-02 07:39] LABS: Anion Gap 11 (12-20); Carbon Dioxide 14 mmol/L (22-29); Chloride 109 mmol/L (96-108); Potassium 3.7 mmol/L (3.3-5.1); Sodium 130 mmol/L (135-145)
[2023-10-02] MEDS: Morphine Sulfate 2 MG/ML CARTRIDGE IVPUSH ×4 (07:46→21:12)
[2023-10-02] MEDS: cefEPime HCl 2 GM in 0.9 % Sodium Chloride 50 ML IV ×3 (07:50→23:22)
[2023-10-02] MEDS: Cholestyramine (With Sugar) 4 GM POWD.PACK PO ×2 (07:51→21:11)
[2023-10-02] MEDS: Tbo-Filgrastim 300 MCG/0.5 ML SYRINGE SUBCUT (10:24)
--- NOTE | 2023-10-02 11:58 | P.PNIM_ITS ---
Subjective Subjective Date of Service: 10/02/23 Interval History: Complaining of abdominal pain that is chronic localized to lower abdomen, tolerating diet no nausea, no vomiting, drinking fluids, denies fever, no chills, no shortness of breath, liquidy stool in colostomy. Physical Exam 2 Vital Signs: Vital Signs: Last Vital Signs Temp 99.1 F 10/02/23 07:14 Pulse 85 10/02/23 07:14 Resp 18 10/02/23 07:14 BP 104/63 10/02/23 07:14 Pulse Ox 98 10/02/23 07:14 O2 Del Method Room Air 10/02/23 07:14 BMI result Body Mass Index 20.1 Const: Other: General awake alert x3, resting comfortably in no acute distress. Neck supple no JVD. CVS regular rate rhythm, Respiratory lungs clear to auscultation, no respiratory distress, no wheeze, no rhonchi. Gastrointestinal abdomen soft, lower abdominal tenderness, bowel sounds audible, colostomy bag with watery stool brown-colored, no blood Extremities no edema. Neuro non focal Skin stable rash both elbows Psych appropriate affect Objective Data Active Medications Acetaminophen (Acetaminophen 325 Mg Tablet) 650 mg PO Q6H PRN PRN Reason: Pain, Mild (Pain Scale 1-3) Acetaminophen (Acetaminophen Supp 650 Mg Supp.Rect) 650 mg [place] Q6H PRN PRN Reason: Pain, Mild (Pain Scale 1-3) Cholestyramine Resin (Cholestyramine (With Sugar) 4 Gm Powd.Pack) 4 gm PO BID [facility] Last Admin: 10/02/23 07:51 Dose: 4 gm Documented By: MARIUM Fentanyl (Fentanyl 25 Mcg Patch.Td72) 25 mcg TRANSDERMA Q72H [facility] Last Admin: 09/30/23 17:02 Dose: 25 mcg Documented By: SCHUYLER-NASRALA Cefepime HCl 2 gm/ Sodium (Chloride) 50 mls @ 100 mls/hr IV Q8H [facility] Last Infusion: 10/02/23 08:20 Dose: Infused Documented By: MARIUM Melatonin (Melatonin 3 Mg Tablet) 6 mg PO BEDTIME PRN PRN Reason: Insomnia Morphine Sulfate (Morphine Sulfate 2 Mg/Ml Cartridge) 2 mg IVPUSH Q2H PRN; Protocol PRN Reason: Pain, Severe (Pain Scale 7-10) Omeprazole (Omeprazole 20 Mg Capsule.) 20 mg PO BID@0630,1630 [facility] Last Admin: 10/02/23 05:03 Dose: 20 mg Documented By: NURYS Ondansetron HCl (Ondansetron Hcl 4 Mg/2 Ml Vial) 4 mg IVPUSH Q8H PRN PRN Reason: Nausea and Vomiting Oxycodone HCl (Oxycodone Hcl Immed Release 5 Mg Tablet) 5 mg PO Q4H PRN PRN Reason: Pain, Moderate(Pain Scale 4-6) Last Admin: 10/02/23 09:19 Dose: 5 mg Documented By: MARIUM Pharmacy Consult (Consult Rx Vancomycin Dosing) 1 each MISCELLANE DAILY PRN PRN Reason: Consult order Sodium Chloride (0.9 % Sodium Chloride Flush 3 Ml Syringe) 3 ml IVFLUSH QSHIFT [facility] Last Admin: 10/02/23 07:11 Dose: Not Given Documented By: MARIUM Non-Admin Reason: See Note Labs 10/02/23 06:27 10/02/23 06:27 Labs: Laboratory Results - last 24 hr 10/02/23 06:27 MCV 88.7 MCH 30.8 MCHC 34.7 RDW 16.1 H Plt Count 16 L* MPV Not Reportable Absolute Nucleated RBC 0.000 Nucleated RBC % (auto) 0.0 Anion Gap 11 L Estim Creat Clear Calc 79.3 Estimated GFR > 60 Random Glucose 135 H Osmolality 272 L Calcium 8.7 Assessment and Plan (1) Pancolitis: Status: Acute (2) Neutropenic fever: Status: Acute (3) Pneumonia: Status: Acute Plan 63-year-old male with a PMH significant for?ILD/pulmonary fibrosis and metastatic colon cancer with metastasis to liver and lung, currently on Lonsurf with Avastin following with Dr. Mckee s/p colostomy who presents to the ED for evaluation of fever and abdominal pain. Pt will be admitted to the hospital for treatment and further evaluation of neutropenic fever in the setting of pneumonia, pancolitis, and pancytopenia. 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 Status post IV fluids, normal lactic acid Continue iv cefepime started 09/28/2023, Continue Neutropenic fever precautions, blood cultures x2 negative Follow CBC Seen by Oncology follow recommendations Pancytopenia WBC 0.9, H and H 5.9/16.4, platelets 49 on admission Hematocrit improved but remains low at 22.6 s/p 4 unit of packed RBC, Stool positive for occult blood, will hold further blood transfusion Possibly multifactorial: Immunosuppression from chemotherapy s/p Granix 300 mcg subQ daily x3 days, will repeat dose today Platelet transfusion if platelets fall below 10 or if bleeding noted Seen by gastroenterology no indication for endoscopy tolerating regular diet Continue by mouth PPI, follow CBC. Colon cancer with metastasis to liver and lungs hold Lonsurf morphine pump discontinued on 10/01, started on fentanyl patch 25 mcg 09/30 Continue IV morphine 2mg q2h and oxycodone as needed home medication MS Contin 30 b.i.d. and as needed oxycodone but patient not absorbing home medication since noted tablets in colostomy bag. Mild acute Hyponatremia Sodium fluctuating 129 to 130 low serum osmolality, restrict fluid intake to 1500 mL follow BMP Acute metabolic acidosis likely due to diarrhea will place on bicarb and follow labs. Full Code DVT Prophylaxis: Pneumatic boots Pt will require continued inpatient hospitalization for neutropenic fever receiving IV antibiotics treatment can not be provided in less acute setting. Quality Stroke Does the patient have a stroke diagnosis?: No VTE Prior VTE?: No VTE Risk Level:: Medical - moderate - high VTE Device Contraindication: N/A - Device Ordered VTE Drug Contraindication: Treatment Not Indicated
[2023-10-02 15:06] VITALS: BP 98/50; PULSE 80; RESP 18; TEMP 36.3; O2SAT 98
[2023-10-02] MEDS: Sodium Bicarbonate 650 MG TABLET PO ×2 (16:27→21:11)
--- NOTE | 2023-10-02 16:31 | PC.NURSE ---
md adjusted pt's diet and educated pt to restrict water intake d/t low Na level
[2023-10-02 19:25] VITALS: BP 101/56; PULSE 84; RESP 20; TEMP 36.6; O2SAT 98
[2023-10-02] MEDS: 0.9 % Sodium Chloride Flush 3 ML SYRINGE IVFLUSH (23:23)
[2023-10-02 23:41] VITALS: BP 111/58; PULSE 89; RESP 20; TEMP 36.9; O2SAT 99
[2023-10-03] MEDS: ondansetron HCL 4 MG/2 ML VIAL IVPUSH ×2 (00:49→08:04)
[2023-10-03] MEDS: Morphine Sulfate 2 MG/ML CARTRIDGE IVPUSH ×6 (02:44→20:54)
[2023-10-03 03:35] VITALS: BP 133/69; PULSE 93; RESP 20; TEMP 37.3; O2SAT 99
[2023-10-03] MEDS: Omeprazole 20 MG CAPSULE.DR PO ×2 (05:37→17:07)
[2023-10-03 05:56] LABS: Mean Corpuscular Hemoglobin 31.4 pg (27.0-33.0); PLT ABN DIST 1; Red Blood Count 2.87 X10*6/uL (4.60-5.80)
[2023-10-03 05:57] LABS: Hematocrit 25.5 % (42.0-52.0); Mean Corpuscular HGB Conc 35.3 g/dl (31.0-36.0); Mean Corpuscular Volume 88.9 fL (80.0-98.0); Red Cell Distribution Width 16.2 % (11.0-16.0)
[2023-10-03 05:58] LABS: Platelet Count 22 X10*3/uL (160-400)
[2023-10-03 06:04] LABS: White Blood Count 0.8 X10*3/uL (4.8-10.8)
[2023-10-03 06:09] LABS: Anion Gap 11 (12-20); Blood Urea Nitrogen 29 mg/dL (9-16); Calcium 9.5 mg/dL (8.4-10.2); Carbon Dioxide 13 mmol/L (22-29); Chloride 110 mmol/L (96-108); Creatinine Clr Calc Pharmacy 57.3; Estimated Glomerular Filt Rate > 60; Glucose Random 136 mg/dL (60-115); Potassium 4.1 mmol/L (3.3-5.1); Sodium 130 mmol/L (135-145)
[2023-10-03] MEDS: cefEPime HCl 2 GM in 0.9 % Sodium Chloride 50 ML IV (07:00)
[2023-10-03 07:28] VITALS: BP 116/66; PULSE 93; RESP 18; TEMP 37; O2SAT 99
[2023-10-03] MEDS: Sodium Bicarbonate 650 MG TABLET PO (07:57)
[2023-10-03] MEDS: 0.9 % Sodium Chloride Flush 3 ML SYRINGE IVFLUSH ×2 (07:57→20:56)
[2023-10-03] MEDS: Cholestyramine (With Sugar) 4 GM POWD.PACK PO ×2 (07:57→20:55)
--- NOTE | 2023-10-03 10:05 | MHC.CLN ---
F/U NEUTROPENIC DIET WITH 1800 ML FLUID RESTRICTION. FR DUE TO LOW SODIUM (CJ=993 ON 10/03). INTAKE USUALLY GOOD, 50-100%. UNDERWEIGHT WITH WEIGHT 845 OF IBW. ENSURE SUPPLEMENT BID PROVIDES 700 KCALS, 40 G PROTEIN. FOLLOW FOR INTAKE AND SODIUM.
--- NOTE | 2023-10-03 10:31 | MHC.CM.PN ---
Per ROUNDS discussion, Patient is not yet medically cleared for dc (IV Morphine today); home is the goal and CM will continue to follow.
[2023-10-03] MEDS: Sodium Bicarbonate 8.4% 100 MEQ in Dextrose 5 % 900 ML 70 MEQ IV (10:39)
[2023-10-03] MEDS: metroNIDAZOLE 500 MG TABLET PO ×2 (10:39→20:54)
[2023-10-03] MEDS: cefuroxime axetiL 500 MG TABLET PO ×2 (10:39→20:54)
--- NOTE | 2023-10-03 11:16 | HO.PM.IMPN ---
Subjective Subjective Date of Service: 10/03/23 Interval History: Drinking plenty of fluids and milk noted to have watery output in colostomy, has poor appetite complaining of persistent lower abdominal pain that is chronic and not worsening, no nausea, no vomiting, no fevers, no chills. Review of Systems All other system reviewed and negative Physical Exam Vital Signs: Vital Signs: Last Vital Signs Temp 98.6 F 10/03/23 07:28 Pulse 93 10/03/23 07:28 Resp 18 10/03/23 07:28 BP 116/66 10/03/23 07:28 Pulse Ox 99 10/03/23 07:28 O2 Del Method Room Air 10/03/23 07:28 BMI result Body Mass Index 20.1 Const: Other: General awake alert x3, frail , chronically sick-looking, resting comfortably in no acute distress. Neck supple no JVD. CVS regular rate rhythm, Respiratory lungs clear to auscultation, no respiratory distress, no wheeze, no rhonchi. Gastrointestinal abdomen soft, lower abdominal tenderness, bowel sounds audible, colostomy bag with watery stool brown-colored, no blood Extremities no edema. Neuro non focal Skin stable rash both elbows fading Psych appropriate affect Objective Data Active Medications Acetaminophen (Acetaminophen 325 Mg Tablet) 650 mg PO Q6H PRN PRN Reason: Pain, Mild (Pain Scale 1-3) Acetaminophen (Acetaminophen Supp 650 Mg Supp.Rect) 650 mg [place] Q6H PRN PRN Reason: Pain, Mild (Pain Scale 1-3) Cefuroxime Axetil (Cefuroxime Axetil 500 Mg Tablet) 500 mg PO Q12H [facility] Last Admin: 10/03/23 10:39 Dose: 500 mg Documented By: DADA Cholestyramine Resin (Cholestyramine (With Sugar) 4 Gm Powd.Pack) 4 gm PO BID [facility] Last Admin: 10/03/23 07:57 Dose: 4 gm Documented By: DADA Fentanyl (Fentanyl 50 Mcg Patch.Td72) 50 mcg TRANSDERMA Q72H [facility] Sodium Bicarbonate 150 meq/ (Dextrose) 1,000 mls @ 125 mls/hr IV .Q8H [facility] Melatonin (Melatonin 3 Mg Tablet) 6 mg PO BEDTIME PRN PRN Reason: Insomnia Metronidazole (Metronidazole 500 Mg Tablet) 500 mg PO Q12H [facility] Last Admin: 10/03/23 10:39 Dose: 500 mg Documented By: DADA Morphine Sulfate (Morphine Sulfate 2 Mg/Ml Cartridge) 2 mg IVPUSH Q2H PRN; Protocol PRN Reason: Pain, Severe (Pain Scale 7-10) Last Admin: 10/03/23 11:14 Dose: 2 mg Documented By: DADA Omeprazole (Omeprazole 20 Mg Capsule.) 20 mg PO BID@0630,1630 [facility] Last Admin: 10/03/23 05:37 Dose: 20 mg Documented By: GALLO Ondansetron HCl (Ondansetron Hcl 4 Mg/2 Ml Vial) 4 mg IVPUSH Q8H PRN PRN Reason: Nausea and Vomiting Last Admin: 10/03/23 08:04 Dose: 4 mg Documented By: DADA Oxycodone HCl (Oxycodone Hcl Immed Release 5 Mg Tablet) 5 mg PO Q4H PRN PRN Reason: Pain, Moderate(Pain Scale 4-6) Last Admin: 10/02/23 23:30 Dose: 5 mg Documented By: GALLO Sodium Chloride (0.9 % Sodium Chloride Flush 3 Ml Syringe) 3 ml IVFLUSH QSHIFT [facility] Last Admin: 10/03/23 07:57 Dose: 3 ml Documented By: DADA Labs 10/03/23 05:45 10/03/23 05:45 Labs: Laboratory Results - last 24 hr 10/03/23 05:45 MCV 88.9 MCH 31.4 MCHC 35.3 RDW 16.2 H Plt Count 22 L D MPV Not Reportable Absolute Nucleated RBC 0.000 Nucleated RBC % (auto) 0.0 Anion Gap 11 L Estim Creat Clear Calc 57.3 Estimated GFR > 60 Random Glucose 136 H Calcium 9.5 D Assessment and Plan (1) Pancolitis: Status: Acute (2) Neutropenic fever: Status: Acute (3) Pneumonia: Status: Acute Plan 63-year-old male with a PMH significant for?ILD/pulmonary fibrosis and metastatic colon cancer with metastasis to liver and lung, currently on Lonsurf with Avastin following with Dr. Mckee s/p colostomy who presents to the ED for evaluation of fever and abdominal pain. Pt will be admitted to the hospital for treatment and further evaluation of neutropenic fever in the setting of pneumonia, pancolitis, and pancytopenia. 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) normal lactic acid on iv cefepime started 09/28/2023, will DC IV cefepime and transition to by mouth Ceftin and Flagyl Continue Neutropenic fever precautions, blood cultures x2 negative Follow CBC Seen by Oncology follow recommendations Pancytopenia likely from chemotherapy WBC 0.9, H and H 5.9/16.4, platelets 49 on admission but WBC and platelets subsequently dropped Hematocrit improved to 25, s/p 4 unit of packed RBC, Stool positive for occult blood, will hold further blood transfusion s/p Granix 300 mcg subQ daily x4 days, WBC dropped to 0.5 and improved to 0.8 Platelet improved from 15 to 22 Platelet transfusion if platelets fall below 10 or if bleeding noted Seen by gastroenterology no indication for endoscopy tolerating regular diet Continue by mouth PPI, follow CBC. Colon cancer with metastasis to liver and lungs hold [facility], follows with Dr. Mckee at Oncology morphine pump discontinued on 10/01, started on fentanyl patch 25 mcg 09/30 increased patch to 50 mcg 10/03 on IV morphine 2mg q2h and oxycodone as needed, will gradually wean IV morphine home medication MS Contin 30 b.i.d. and as needed oxycodone but patient not absorbing home medication since noted tablets in colostomy bag. Mild acute Hyponatremia Sodium fluctuating 129 to 130 low serum osmolality, restrict fluid intake to 1800 mL drinks more than 2 L at home, follow BMP Acute metabolic acidosis likely due to diarrhea Will place on IV bicarb drip, recommended bland diet, low-fiber , clear ensure Full Code DVT Prophylaxis: Pneumatic boots Pt will require continued inpatient hospitalization for neutropenic fever receiving antibiotics treatment and on IV bicarb drip for acute metabolic acidosis Quality Stroke Does the patient have a stroke diagnosis?: No VTE Prior VTE?: No VTE Risk Level:: Medical - moderate - high VTE Device Contraindication: N/A - Device Ordered VTE Drug Contraindication: Treatment Not Indicated
[2023-10-03] MEDS: fentaNYL 50 MCG PATCH.TD72 TRANSDERMA (12:27)
[2023-10-03] MEDS: oxyCODONE HCl Immed Release 5 MG TABLET PO (12:32)
[2023-10-03] MEDS: Sodium Bicarbonate 8.4% 150 MEQ in Dextrose 5 % 850 ML 125 MEQ IV ×2 (13:41→22:02)
[2023-10-03 15:34] VITALS: BP 147/64; PULSE 81; RESP 18; TEMP 36.6; O2SAT 100
[2023-10-04] VITALS (9 sets, daily range): BP systolic 80–103; BP diastolic 40–61; PULSE 77–89; RESP 16–20; TEMP 36.2–37.2; O2SAT 98–100
[2023-10-04] MEDS: Morphine Sulfate 2 MG/ML CARTRIDGE IVPUSH ×2 (02:04→08:00)
[2023-10-04 07:08] LABS: Hematocrit 22.1 % (42.0-52.0); Hemoglobin 7.9 g/dl (14.0-18.0); Mean Corpuscular HGB Conc 35.7 g/dl (31.0-36.0); Mean Corpuscular Volume 86.7 fL (80.0-98.0); Red Blood Count 2.55 X10*6/uL (4.60-5.80); Red Cell Distribution Width 15.7 % (11.0-16.0)
[2023-10-04 07:09] LABS: Platelet Count 25 X10*3/uL (160-400); White Blood Count 1.2 X10*3/uL (4.8-10.8)
[2023-10-04 07:39] LABS: Anion Gap 13 (12-20); Blood Urea Nitrogen 33 mg/dL (9-16); Calcium 8.6 mg/dL (8.4-10.2); Carbon Dioxide 26 mmol/L (22-29); Chloride 96 mmol/L (96-108); Creatinine Clr Calc Pharmacy 66.8; Estimated Glomerular Filt Rate > 60; Glucose Random 121 mg/dL (60-115); Potassium 3.5 mmol/L (3.3-5.1); Sodium 131 mmol/L (135-145)
[2023-10-04] MEDS: Omeprazole 20 MG CAPSULE.DR PO ×2 (07:52→16:45)
[2023-10-04] MEDS: Cholestyramine (With Sugar) 4 GM POWD.PACK PO ×2 (07:52→19:56)
[2023-10-04] MEDS: cefuroxime axetiL 500 MG TABLET PO ×2 (07:52→19:55)
[2023-10-04] MEDS: metroNIDAZOLE 500 MG TABLET PO ×2 (07:52→19:55)
[2023-10-04] MEDS: 0.9 % Sodium Chloride Flush 3 ML SYRINGE IVFLUSH ×3 (07:53→19:56)
[2023-10-04] MEDS: Albumin Human 25 % 100 ML IV ×2 (11:52→12:58)
[2023-10-04] MEDS: oxyCODONE HCl Immed Release 5 MG TABLET PO ×3 (11:54→22:02)
--- NOTE | 2023-10-04 13:50 | HO.PM.IMPN ---
Subjective Subjective Date of Service: 10/04/23 Interval History: seen and examined this moring follow up for neutropenic fever, pneumonia, colitis feeling better today, pain under better control still with liquid output in colostomy but improving Review of Systems Review of Systems: Yes all other systems are reviewed and are negative Constitutional Constitutional: Reports chills and Denies fever(s) Cardiovascular Cardiovascular: Denies chest pain and Denies dyspnea Respiratory Respiratory: Denies dyspnea Physical Exam Vital Signs: Vital Signs: Last Vital Signs Temp 97.2 F 10/04/23 07:33 Pulse 87 10/04/23 07:33 Resp 16 10/04/23 07:33 BP 93/58 L 10/04/23 07:33 Pulse Ox 98 10/04/23 07:33 O2 Del Method Room Air 10/04/23 07:33 BMI result Body Mass Index 20.1 Const: Other: Chronically ill-appearing, thin General: alert and awake Orientation/consciousness: patient oriented x3 Resp: Effort & Inspection: normal respiratory effort, able to speak in complete sentences, no respiratory distress and no use of accessory muscles Cardio: Rate: regular rate GI: Other: colostomy with mostly liquid output Inspection: No distended Palpation (GI): Soft to palpation Neuro: General: patient oriented x3, moves all extremities and CN's II-XI intact bilaterally Extrem: General: Yes no pedal edema Objective Data Active Medications Acetaminophen (Acetaminophen 325 Mg Tablet) 650 mg PO Q6H PRN PRN Reason: Pain, Mild (Pain Scale 1-3) Acetaminophen (Acetaminophen Supp 650 Mg Supp.Rect) 650 mg [place] Q6H PRN PRN Reason: Pain, Mild (Pain Scale 1-3) Al Hydroxide/Mg Hydroxide (Magnesium Hydrox/Alum Hydrox 30 Ml Oral.Susp) 15 ml PO Q4H PRN PRN Reason: dyspepsia Cefuroxime Axetil (Cefuroxime Axetil 500 Mg Tablet) 500 mg PO Q12H [facility] Last Admin: 10/04/23 07:52 Dose: 500 mg Documented By: TOD Cholestyramine Resin (Cholestyramine (With Sugar) 4 Gm Powd.Pack) 4 gm PO BID [facility] Last Admin: 10/04/23 07:52 Dose: 4 gm Documented By: TOD Fentanyl (Fentanyl 50 Mcg Patch.Td72) 50 mcg TRANSDERMA Q72H [facility] Last Admin: 10/03/23 12:27 Dose: 50 mcg Documented By: DADA Melatonin (Melatonin 3 Mg Tablet) 6 mg PO BEDTIME PRN PRN Reason: Insomnia Metronidazole (Metronidazole 500 Mg Tablet) 500 mg PO Q12H [facility] Last Admin: 10/04/23 07:52 Dose: 500 mg Documented By: TOD Omeprazole (Omeprazole 20 Mg Sera.) 20 mg PO BID@0630,1630 [facility] Last Admin: 10/04/23 07:52 Dose: 20 mg Documented By: TOD Ondansetron HCl (Ondansetron Hcl 4 Mg/2 Ml Vial) 4 mg IVPUSH Q8H PRN PRN Reason: Nausea and Vomiting Last Admin: 10/03/23 08:04 Dose: 4 mg Documented By: DADA Oxycodone HCl (Oxycodone Hcl Immed Release 5 Mg Tablet) 5 mg PO Q4H PRN PRN Reason: Pain, Moderate(Pain Scale 4-6) Last Admin: 10/04/23 11:54 Dose: 5 mg Documented By: TOD Sodium Chloride (0.9 % Sodium Chloride Flush 3 Ml Syringe) 3 ml IVFLUSH QSHIFT [facility] Last Admin: 10/04/23 07:53 Dose: 3 ml Documented By: TOD Labs 10/04/23 06:34 10/04/23 06:46 Labs: Laboratory Results - last 24 hr 10/04/23 10/04/23 10/04/23 06:34 06:46 11:24 MCV 86.7 MCH 31.0 MCHC 35.7 RDW 15.7 Plt Count 25 L MPV Not Reportable Absolute Nucleated RBC 0.000 Nucleated RBC % (auto) 0.0 Anion Gap 13 Estim Creat Clear Calc 66.8 Estimated GFR > 60 Random Glucose 121 H Calcium 8.6 D Blood Type A Positive Antibody Screen NEGATIVE Crossmatch See Detail Assessment and Plan (1) Pneumonia: Status: Acute (2) Pancolitis: Status: Acute (3) Neutropenic fever: Status: Acute Plan This is a 63-year-old male with a PMH significant for?ILD/pulmonary fibrosis and metastatic colon cancer with metastasis to liver and lung, currently on Lonsurf with Avastin following with Dr. Mckee s/p colostomy who presents to the ED for evaluation of fever and abdominal pain admitted for neutropenic fever in the setting of pneumonia, pancolitis, and pancytopenia. Neutropenic fever with sepsis due to pancolitis and multifocal pneumonia No recurrent fever since presentation WBC improving Sepsis resolved Persistent lower abdominal pain and loose watery stool - starting to improve Complaining of lower abdominal pain. 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) - pain now better controlled with increase in fentanyl patch normal lactic acid on iv cefepime started 09/28/2023, transitioned to by mouth Ceftin and Flagyl Continue Neutropenic fever precautions blood cultures x2 negative Follow CBC Seen by Oncology follow recommendations Pancytopenia likely from chemotherapy WBC 0.9, H and H 5.9/16.4, platelets 49 on admission but WBC and platelets subsequently dropped Stool positive for occult blood but not noted to have any overt bleeding Hematocrit initially improved to 25, s/p 4 unit of packed RBC, trending down again 10/04- will transfuse 1 unit RBCs s/p Granix 300 mcg subQ daily x4 days, WBC improving Platelet improved from 15 to 25 Platelet transfusion if platelets fall below 10 or if bleeding noted Seen by gastroenterology no indication for endoscopy Continue by mouth PPI follow CBC Colon cancer with metastasis to liver and lungs hold [facility], follows with Dr. Mckee at Oncology morphine pump discontinued on 10/01, started on fentanyl patch 25 mcg 09/30 increased patch to 50 mcg 10/03 continue oxycodone as needed, d/c IV morphine home medication MS Contin 30 b.i.d. and as needed oxycodone but patient not absorbing home medication since noted tablets in colostomy bag. Mild acute Hyponatremia Sodium fluctuating 129 to 130, up to 131 low serum osmolality, restrict fluid intake to 1800 mL drinks more than 2 L at home, follow BMP Acute metabolic acidosis likely due to diarrhea s/p IV bicarb drip, bicarb improved recommended bland diet, low-fiber , clear ensure Full Code DVT Prophylaxis: Pneumatic boots Pt will require continued inpatient hospitalization for neutropenic fever receiving antibiotics treatment Quality Stroke Does the patient have a stroke diagnosis?: No VTE Prior VTE?: No VTE Risk Level:: Medical - moderate - high VTE Device Contraindication: N/A - Device Ordered VTE Drug Contraindication: Treatment Not Indicated
[2023-10-04] MEDS: ondansetron HCL 4 MG/2 ML VIAL IVPUSH (15:47)
[2023-10-05] VITALS: BP 88/53; PULSE 77; RESP 20; TEMP 36.3; O2SAT 97
[2023-10-05] MEDS: oxyCODONE HCl Immed Release 5 MG TABLET PO ×3 (02:22→11:04)
[2023-10-05 02:25] VITALS: BP 92/48; PULSE 76; RESP 18
[2023-10-05 03:29] VITALS: BP 119/66; PULSE 78; RESP 20; TEMP 36.2; O2SAT 98
[2023-10-05] MEDS: Omeprazole 20 MG CAPSULE.DR PO (06:24)
[2023-10-05 07:18] LABS: Hematocrit 26.4 % (42.0-52.0); Hemoglobin 9.5 g/dl (14.0-18.0); Mean Corpuscular Hemoglobin 31.6 pg (27.0-33.0); Mean Corpuscular Volume 87.7 fL (80.0-98.0); Platelet Count 39 X10*3/uL (160-400); Red Blood Count 3.01 X10*6/uL (4.60-5.80); Red Cell Distribution Width 15.7 % (11.0-16.0); WBC ABN SCTR FOR CBC 1
[2023-10-05 07:23] VITALS: BP 91/54; PULSE 78; RESP 16; TEMP 36.3; O2SAT 97
[2023-10-05 07:27] LABS: Anion Gap 14 (12-20); Blood Urea Nitrogen 39 mg/dL (9-16); Calcium 9.2 mg/dL (8.4-10.2); Carbon Dioxide 24 mmol/L (22-29); Chloride 97 mmol/L (96-108); Creatinine Clr Calc Pharmacy 55.9; Estimated Glomerular Filt Rate 60; Glucose Random 102 mg/dL (60-115); Potassium 3.6 mmol/L (3.3-5.1); Sodium 131 mmol/L (135-145)
[2023-10-05 08:31] LABS: Atypical Lymph Absolute Manual 0.1 x10*3/uL; Atypical Lymphs Percent Manual 3 % (0-6); Band Neutrophils Percent 2 % (3-5); Lymphocytes Absolute Manual 0.6 X10*3/uL (1.2-4.9); Lymphocytes Percent Manual 32 % (20-40); Monocytes Absolute Manual 0.3 X10*3/uL (0.1-1.2); Monocytes Percent Manual 14 % (2-11); Neutrophils Percent Manual 49 % (45-73)
[2023-10-05 08:32] LABS: RBC Morphology NOTED; Tear Drop Cells 1+ (0-2) /OIF
[2023-10-05 08:33] LABS: Platelet Estimate DECREASED (NORMAL); Platelet Morphology Comment NORMAL
[2023-10-05] MEDS: Cholestyramine (With Sugar) 4 GM POWD.PACK PO (09:01)
[2023-10-05] MEDS: metroNIDAZOLE 500 MG TABLET PO (09:02)
[2023-10-05] MEDS: 0.9 % Sodium Chloride Flush 3 ML SYRINGE IVFLUSH (09:03)
--- NOTE | 2023-10-05 09:55 | MHC.CLN ---
F/U NEUTROPENIC, BLAND DIET WITH 1800 ML FLUID RESTRICTION. MOST RECENT INTAKE APPROX 50%. PER REC, ENSURE CLEAR TID. PROVIDES 720 KCAL, 24 G PROTEIN. PER CARTON HAS 199 ML FREE WATER. CONTINUE TO MONITOR PO INTAKE.
--- NOTE | 2023-10-05 11:40 | PM.DS ---
DS: Providers Provider Date of Service: 10/05/23 Date of admission: 09/28/23 19:24 Date of discharge: 10/05/23 Primary care physician: Jono Headley MD Consults: 09/28/23 19:57 Consult to Gastroenterology Routine Consulting Provider: Pratik Tam Reason for consultation: ?GI bleed 09/28/23 21:10 Consult to Hematology / Oncology Routine Consulting Provider: Brennan Friend Reason for consultation: Neutropenic fever, pancolitis, pneumonia Has provider been notified: Yes Attending physician on discharge: Fahad Farley Discharging clinician: Dara Cai DS: Diagnosis Discharge Diagnosis (1) Pneumonia: Status: Acute (2) Pancolitis: Status: Acute (3) Neutropenic fever: Status: Acute (4) Acute hyponatremia: Status: Acute DS: Summary Hospital Course Hospital Course: From H&P on the day of admission Pt is a 63-year-old male with a PMH significant for?ILD/pulmonary fibrosis and metastatic colon cancer with metastasis to liver and lung, currently on Lonsurf with Avastin following with Dr. Mckee s/p colostomy who presents to the ED for evaluation of fever and abdominal pain. Patient reports having increased SOB, fatigue, and cough for the past 2 weeks. Yesterday patient stated that he did not ?feel right? and knew that ?something was wrong?. Reports overall body pain; says ?even my hair hurt . However, patient reports the most pain in his abdomen. Earlier this morning patient called Oncology who directed patient to the emergency room for further evaluation and workup. Complains of chronic nausea and vomiting around baseline. Stomach has been so painful that he has not been eating much, but has been drinking plenty of fluids. Denies chest pain/pressure, palpitations. Denies any blood in his stool, but notes it has been more liquid than normal and darker than normal, almost black. ? In the ED pt was febrile up to 102.1 with variable BP mostly soft as low as 104/50. Labs were significant for WBC of 0.9, H&H 5.9/16.4, platelets 49, sodium 130, bilirubin 3.7, and alk-phos 126. Stool positive for occult blood. Patient tested negative for COVID and influenza type a and B. UA negative for UTI. CXR showed left greater than right lower lobe opacities concerning for multifocal infectious process. CT?of abdomen and pelvis found diffuse wall thickening and edema of the colon suggestive of pancolitis. Pt was treated with cefepime, IVF, ondansetron, morphine, and Granix, and was transfused 3 units of PRBCs. Pt will be admitted to the hospital for treatment and further evaluation of neutropenic fever in the setting of pneumonia, pancolitis, and pancytopenia. Neutropenic fever with sepsis due to pancolitis and multifocal pneumonia No recurrent fever since presentation WBC improving. Sepsis resolved. abdominal pain and loose watery stool improving. 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 Treated with IV cefepime started 09/28/2023, and then transitioned to by mouth Ceftin and Flagyl to complete 10 day course of antibiotics. Blood cultures x2 have remained negative to date. Blood pressure has been soft, patient reports this is normal baseline. He has remained asymptomatic and is eager to return home. Pancytopenia likely from chemotherapy Required a total of 4 units of blood during hospitalization. Was also treated with Granix 300 mcg subQ daily x4 days. White cells, platelets and H/H improving. Noted to have Stool positive for occult blood but no overt bleeding. He was seen by gastroenterology and no indication for endoscopy. Colon cancer with metastasis to liver and lungs with uncontrolled pain. morphine pump discontinued on 10/01, started on fentanyl patch 25 mcg 09/30 increased patch to 50 mcg 10/03. continue oxycodone as needed home medication MS Contin 30 b.i.d. stopped patient not absorbing home medication since noted tablets in colostomy bag. plan to hold lonsurg and repeat labs with oncology on Sunday Mild acute Hyponatremia Sodium fluctuating 129 to 130, up to 131. low serum osmolality, restrict fluid intake to 1800 mL drinks more than 2 L at home. Acute metabolic acidosis likely due to diarrhea s/p IV bicarb drip, bicarb improved. resolved with IVF Time Attestation Total time managing care of this patient today: 40 mintues. Discharge coordination time: Greater than 30 minutes Quality: Safe Use of Opioids Does Pt have an Active Cancer Diagnosis on the Problem List?: No Quality: Stroke Does the patient have a stroke diagnosis?: No Physical Exam Vital Signs: Vital Signs: Last Vital Signs Temp 97.4 F 10/05/23 07:23 Pulse 78 10/05/23 07:23 Resp 16 10/05/23 07:23 BP 91/54 L 10/05/23 07:23 Pulse Ox 97 10/05/23 07:23 O2 Del Method Room Air 10/05/23 07:23 BMI result Body Mass Index 20.1 Const: Other: Chronically ill-appearing, thin General: alert and awake Orientation/consciousness: patient oriented x3 Resp: Effort & Inspection: normal respiratory effort, able to speak in complete sentences, no respiratory distress and no use of accessory muscles Cardio: Rate: regular rate GI: Inspection: No distended Palpation (GI): Soft to palpation Neuro: General: patient oriented x3, moves all extremities and CN's II-XI intact bilaterally Extrem: General: Yes no pedal edema DS: Data Data Completed and Pending Labs on day of discharge: Laboratory Results - last 24 hr 10/04/23 10/05/23 11:24 06:44 WBC 2.0 L RBC 3.01 L Hgb 9.5 L D Hct 26.4 L MCV 87.7 MCH 31.6 MCHC 36.0 RDW 15.7 Plt Count 39 L D MPV Not Reportable Immature Gran % (Auto) Cancelled Neut % (Auto) Cancelled Lymph % (Auto) Cancelled Winkler % (Auto) Cancelled Eos % (Auto) Cancelled Baso % (Auto) Cancelled Lymph # (Auto) Cancelled Winkler # (Auto) Cancelled Eos # (Auto) Cancelled Baso # (Auto) Cancelled Abs Immat Gran (auto) Cancelled Absolute Neuts (auto) Cancelled Absolute Nucleated RBC 0.000 Nucleated RBC % (auto) 0.0 Neutrophils % (Manual) 49 Band Neutrophils % 2 L Lymphocytes % (Manual) 32 Atypical Lymphs % (Man) 3 Monocytes % (Manual) 14 H Abs Neuts (Manual) 1.0 L Lymphocytes # (Manual) 0.6 L Atyp Lymphs # (Manual) 0.1 Monocytes # (Manual) 0.3 Platelet Estimate DECREASED Plt Morphology Comment NORMAL RBC Morphology NOTED Tear Drop Cells 1+ (0-2) Sodium 131 L Potassium 3.6 Chloride 97 Carbon Dioxide 24 Anion Gap 14 BUN 39 H Creatinine 1.22 Estim Creat Clear Calc 55.9 Estimated GFR 60 Random Glucose 102 Calcium 9.2 D Blood Type A Positive Antibody Screen NEGATIVE Crossmatch See Detail Discharge Plan Discharge Anticipated Discharge Date/Time: 10/05/23 11:52 Patient Disposition: Home, Self-Care Discharge Diagnosis: neutropenic fever pneumonia colitis Referrals: Brennan Friend MD [Physician] - 1 Week Po,Jono Kaur MD [Primary Care Provider] - 1 Week Discharge Medications: New fentanyl 50 mcg/hr Patch 72 Hour 50 mcg transdermal Q72H Qty: 5 0RF Rx Instructions: Partial Fill upon patient request. cefuroxime axetil 500 mg Tablet 500 mg PO Q12H 3 Days Qty: 6 0RF metronidazole 500 mg Tablet 500 mg PO Q12H 3 Days Qty: 6 0RF Continued omeprazole 40 mg capsule,delayed release(DR/EC) 40 mg PO DAILY@0630 10RF cholestyramine (with sugar) [Questran] 4 gram powder in packet 1 ea PO BID Qty: 60 1RF ferrous sulfate [iron] 325 mg (65 mg iron) Tablet 325 mg PO BID Qty: 60 2RF ondansetron HCl 8 mg tablet 8 mg PO Q6-8H PRN (Reason: Nausea And Vomiting) Qty: 60 0RF oxycodone 5 mg Tablet 5 mg PO Q8H PRN (Reason: Pain) Qty: 60 0RF Rx Instructions: Partial Fill upon patient request. acetaminophen 650 mg tablet extended release 650 mg PO Q6H PRN (Reason: Pain) Held Lonsurf 20-8.19 mg Tablet 3 tab PO BID Qty: 60 3RF Hold Instructions: hold until follow up labs are completed on Sunday and discussed with oncology Rx Instructions: must take within 1 hr after completion of meal; administer days 1-5 and 8 -12 of 28-day cycle Discontinued morphine [MS Contin] 30 mg tablet extended release 30 mg PO BID Qty: 60 0RF No Action (DME) Natura Drainable Pouch 1 08/14 (12 ) Misc Qty: 10 6RF Rx Instructions: As Directed Discharge Orders: Discharge Order (Routine); Ordered 10/05/23 Ordered By: Dara Cai Activity on Discharge: As tolerated Stand Alone Forms: Patient Portal Discharge page Care Plan Goals: see below Health Concerns: neutropenic fever and sepsis due to colitis and multifocal pneumonia pancytopenia metastatic colon cancer hyponatremia heme + stools Plan of Treatment: complete course of antibiotics as prescribed outpatient follow up with oncology - repeat labs scheduled for Sunday 10/08 MS contin has been stopped and replaced with fentanyl patch, stop taking MS contin. can use as needed oxycodone don't take Lonsurf until follow up labs are completed on Sunday Assessment: see discharge summary
[2023-10-05 11:49] VITALS: BP 106/57; PULSE 78; RESP 16; TEMP 36.1; O2SAT 98
--- NOTE | 2023-10-05 12:09 | MHC.CM.PN ---
Patient has been medically cleared for dc to home today, self care. CM met with Patient at bedside and addressed IMM with him, providing Patient with the original and a copy has been placed on te chart. Patient's will provide transportation to home.
== END 2023-10-05 13:08 | disposition home or self-care (01) | DRG 871 ==
LOC: HO.ED 19:30 → HO.EDOVER 19:57 → HO.IMC 09-29 00:18
PROVIDERS: Hospitalist; Student in an Organized Health Care Education/Training Program; Admitting Provider Student in an Organized Health Care Education/Training Program; Emergency Provider Emergency Medicine; PCP Internal Medicine; Visit Provider Physician Assistant Medical
DX: A41.9 Sepsis, unspecified organism (principal); D61.810 Antineoplastic chemotherapy induced pancytopenia; J18.9 Pneumonia, unspecified organism; C18.2 Malignant neoplasm of ascending colon; C78.7 Secondary malignant neoplasm of liver and intrahepatic bile duct; C78.02 Secondary malignant neoplasm of left lung; C78.01 Secondary malignant neoplasm of right lung; D84.821 Immunodeficiency due to drugs; E87.1 Hypo-osmolality and hyponatremia; K52.9 Noninfective gastroenteritis and colitis, unspecified; D70.3 Neutropenia due to infection; E86.0 Dehydration; T45.1X5A Adverse effect of antineoplastic and immunosuppressive drugs, initial encounter; R50.81 Fever presenting with conditions classified elsewhere; Z93.3 Colostomy status; Z20.822 Contact with and (suspected) exposure to COVID-19; Z87.891 Personal history of nicotine dependence; Z79.899 Other long term (current) drug therapy
CPT/HCPCS: 36415; 71045; 74177; 80048; 80053; 80202; 81003; 82272; 82565; 83605; 83930; 85007; 85025; 85027; 86850; 86900; 86901; 86923; 87502; 87635; 99285; C9113; J0692; J1447; J1642; J2270; J2405; J3370; J3371; P9016; P9047; Q9967

== ENCOUNTER → 2023-09-28 19:24 | Outpatient (BNV) | payer OTHER, SELFPAY | PROVIDERS: Admitting Provider Student in an Organized Health Care Education/Training Program; Emergency Provider Emergency Medicine; PCP Internal Medicine; Visit Provider Internal Medicine Medical Oncology | DX: C18.9 Malignant neoplasm of colon, unspecified (principal); C78.7 Secondary malignant neoplasm of liver and intrahepatic bile duct; C78.02 Secondary malignant neoplasm of left lung; J18.9 Pneumonia, unspecified organism | CPT/HCPCS: 99222 ==

== ENCOUNTER → 2023-09-28 19:24 | Outpatient (BNV) | payer OTHER, SELFPAY | PROVIDERS: Admitting Provider Student in an Organized Health Care Education/Training Program; Emergency Provider Emergency Medicine; PCP Internal Medicine; Visit Provider Student in an Organized Health Care Education/Training Program | DX: K51.00 Ulcerative (chronic) pancolitis without complications (principal); D70.9 Neutropenia, unspecified; J18.9 Pneumonia, unspecified organism; R50.81 Fever presenting with conditions classified elsewhere; E87.1 Hypo-osmolality and hyponatremia | CPT/HCPCS: 99223; 99233; 99239 ==

== ENCOUNTER 2023-10-11 12:55 | Outpatient (AMB) | payer OTHER, SELFPAY ==
--- NOTE | 2023-10-11 12:56 | A.OFFPC_ITS ---
Vital Signs 10/11/23 12:58 Height 5 ft 11 in Weight 133 lb 0.6 oz BMI 18.6 BP 90/52 L Blood Pressure Location Lt brachial Position Sitting Pulse 80 Pulse Source Pulse Oximeter Pulse Oximetry (%) 98 Oxygen Delivery Method Room Air Intake Visit Reasons: Re establish care/ Colon cancer follow up Intake Note: Patient is a new patient here to establish care Product Safety Expert Required: No Allergies prednisone [PREDNISONE] Adverse Reaction (Intermediate, Verified 10/11/23 13:29) Psychosis Tobacco use date assessed: 10/11/23 Fall risk assessment: No Falls in past year Last assessed Fall Risk: 10/11/23 Dental Screening Dental Screen Date: 10/11/23 Did you have a dental visit in the last 12 months?: Yes Did you have a dental problem in the last 6 months where you did not have access to dental care?: No Was dental information given to patient?: Patient has dentist HPI Re establish care/ Colon cancer follow up HPI Details 63-year-old male with a history of inter stitial lung disease colon cancer coming in for reestablishing care. 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 Was in the hospital also earlier this month for pneumonia, pancolitis neutropenic fever hyponatremia antibiotic IV given and had transfusion of 3 units of packed RBC. Stool is positive for presently on morphine pump and fentanyl patch discharge on fentanyl patch as needed oxycodone. Presently patient has been doing fine with no nausea no vomiting no chest pains no shortness a breath does have the colostomy bag on the left lower quadrant of the abdomen [facility] Medical History Encounter for ostomy care education Multifocal pneumonia Hyponatremia Colon cancer metastasized to liver Pulmonary nodule Colon cancer metastasized to liver Pulmonary fibrosis ILD (interstitial lung disease) Chronic respiratory failure Tubular adenoma Colon cancer metastasized to liver Surgical History H/O knee surgery Family History Son Cystic fibrosis Brother Esophageal cancer Maternal Aunt Lung cancer Social History Household Members: Spouse Housing: House Do you presently have visiting nurse or other home services: Yes Patient Tobacco Use Status: Former Tobacco user Quit Date: quit 20 years ago Tobacco use type: Cigarette e-Cigarette/Vaping Use: Former Use Second Hand Smoke Exposure: No Substance Use Type: Marijuana Advance Directives Date on File: 12/12/22 service: No Current occupational status: employed Current occupation: [employer] Cognitive needs: No Hearing needs: No Vision needs: No Questionnaire PHQ-9 Over the last 2 weeks, how often have you been bothered by any of the following problems? 1. Little interest or pleasure in doing things: not at all 2. Feeling down, depressed, or hopeless: not at all 3. Trouble falling or staying asleep, or sleeping too much: not at all 4. Feeling tired or having little energy: not at all 5. Poor appetite or overeating: not at all 6. Feeling bad about yourself - or that you are a failure or have let yourself or your family down: not at all 7. Trouble concentrating on things, such as reading the newspaper or watching television: not at all 8. Moving or speaking so slowly that other people could have noticed. Or the opposite - being so fidgety or restless that you have been moving around a lot more than usual: not at all 9. Thoughts that you would be better off or of hurting yourself in some way: not at all Total score: 0 Depression Screening Interpretation: Negative Depression Screening Done: Yes Source: Developed by Drs. Homero Ferrari, Sarah Espinosa, Raymon Sheikh and colleagues, with an educational farooq from [employer]. Thrive Questionnaire Date Thrive assessed: 10/11/23 I am a: Patient What is your living situation today?: I have a steady place to live Within the past 12 months, did the food you bought not last and you didn't have the money to get more?: Never true Within the past 12 months, did you worry whether your food would run out before you got money to buy more?: Never true Do you have trouble paying for medicines?: No Do you have trouble getting transportation to medical appointments?: No Do you have trouble paying your heating and electricity bill?: No Do you have trouble taking care of your child, family member or friend?: No Do you have trouble with day-to-day activities such as bathing, preparing meals, shopping, managing finances, etc.?: No Are you currently unemployed and looking for a job?: No Are you interested in more education?: No Please select the resources that you would like help with: None THRIVE Score: 0 AUDIT C Alcohol Use Questionnaire (AUDIT-C) 1. How often do you have a drink containing alcohol?: Never 3. How often do you have six or more drinks on one occasion?: Never Total Score: 0 AME-7 AMB Questionnaire AME-7 Date AME - 7 assessed: 10/11/23 Feeling nervous, anxious, or on edge: 0 = Not at all Not being able to stop or control worryin = Not at all Worrying too much about different things: 0 = Not at all Trouble relaxin = Not at all Being so restless that it is hard to sit still: 0 = Not at all Becoming easily annoyed or irritable: 0 = Not at all Feeling afraid as if something awful might happen: 0 = Not at all Total AME-7 score (0-4 normal; 5-9 mild; 10-14 moderate; 15-21 severe): 0 Source: Developed by Drs. Homero Ferrari, Sarah Espinosa, Raymon Sheikh and colleagues, with an educational farooq from [employer]. Physical exam (Primary Care) Vital Signs: Last Vital Signs Pulse 80 10/11/23 12:58 BP 90/52 L 10/11/23 12:58 Pulse Ox 98 10/11/23 12:58 Oxygen Delivery Method Room Air 10/11/23 12:58 BMI result Body Mass Index 18.6 Tobacco/Smoking Status: Tobacco use Status Tobacco use date assessed 10/11/23 10/11/23 12:58 Patient Tobacco Use Status Former Tobacco user 10/11/23 12:58 Tobacco use type Cigarette 10/11/23 12:58 e-Cigarette/Vaping Use Former Use 10/11/23 12:58 PHQ-9: PHQ-9 Score PHQ-9: Total score 0 10/11/23 13:35 Depression Screening Interpretation: Negative Thrive Assessment: Date of Thrive Assessment Date Thrive assessed 10/11/23 10/11/23 12:58 Const General: alert; No acute distress Eyes Conjunctivae: conjunctivae normal Resp Auscultation: clear to auscultation bilaterally Cardio Rate: regular rate Rhythm: regular rhythm GI Other: Left lower quadrant colostomy bag Extrem General: Yes normal to inspection and No edema Assessment and Plan Assessment & Plan (1) Pulmonary fibrosis: Code(s): J84.10 - Pulmonary fibrosis, unspecified Plan: Patient has continued to be monitored (2) Colon cancer: Code(s): C18.9 - Malignant neoplasm of colon, unspecified Plan: Follows up with Hematology-Oncology on chemotherapy (3) GI bleed: Code(s): K92.2 - Gastrointestinal hemorrhage, unspecified Plan: Has had transfusion in the hospital continuing to monitor blood count (4) Neutropenic fever: Code(s): D70.9 - Neutropenia, unspecified; R50.81 - Fever presenting with conditions classified elsewhere Plan: Resolved (5) Pneumonia: Code(s): J18.9 - Pneumonia, unspecified organism Plan: Resolved Coding Level of Care Code Est Pt Level 4 (36045) Diagnoses Pulmonary fibrosis J84.10 Colon cancer C18.9 GI bleed K92.2 Neutropenic fever D70.9; R50.81 Pneumonia J18.9
[2023-10-11 12:58] VITALS: BP 90/52; PULSE 80; O2SAT 98; BMI 18.6
== END 2023-10-11 14:12 | disposition home or self-care (01) ==
PROVIDERS: PCP Internal Medicine; Visit Provider Internal Medicine
DX: J84.10 Pulmonary fibrosis, unspecified (principal); C18.9 Malignant neoplasm of colon, unspecified; K92.2 Gastrointestinal hemorrhage, unspecified; D70.9 Neutropenia, unspecified; R50.81 Fever presenting with conditions classified elsewhere; J18.9 Pneumonia, unspecified organism
CPT/HCPCS: 99214

== ENCOUNTER 2024-04-09 10:38 | Emergency (ER) | payer OTHER, SELFPAY ==
--- NOTE | ~2024-04-09 | CT_ITS ---
EXAMINATION: CT HEAD WITHOUT AND WITH CONTRAST CLINICAL INFORMATION: Metastatic colon cancer. Rule out brain metastases. COMPARISON: None. TECHNIQUE: Contiguous axial imaging was performed from the skullbase to vertex before and after the intravenous administration of 85 mL Omnipaque 350. Significantly limited study with motion artifacts. This CT examination was performed using dose optimization techniques as appropriate, variously including the following: *Automated exposure control *Adjustment of mA and/or kV according to patient size (this includes techniques or standardized protocols for targeted exams where dose is matched to indication/reason for exam; i.e. extremities or head) *Use of iterative reconstruction technique DLP: 2582 mGy-cm. FINDINGS: There is no evidence of acute intracranial hemorrhage or territorial infarction. No abnormal mass effect or midline shift is seen. [place] to white matter differentiation is well preserved. No extra-axial fluid collections are identified. There is no abnormal enhancement. No evidence of hydrocephalus. There is no abnormal attenuation within the brain parenchyma. The soft tissues are normal. A nonspecific, mixed lytic and sclerotic lesion in the left maxillary bone is without significant change as compared to prior imaging. The mastoid air cells and visualized portions of the paranasal sinuses are well aerated. CT/CT head/brain wo/w IV con IMPRESSION: No acute intracranial pathology. No CT evidence of intracranial metastatic disease. Electronically signed by: Grayson Hanley MD 04/09/2024 06:31 PM EDT
[2024-04-09 10:42] VITALS: BP 154/68; PULSE 100; RESP 22; TEMP 36.5; O2SAT 94; BMI 18.2
--- NOTE | 2024-04-09 10:45 | ED.AMS ---
HPI - Altered Mental Status General Chief Complaint: General Medical Stated Complaint: Anxiety Time Seen by Provider: 04/09/24 10:44 Source: other (Dr. Mckee) Mode of arrival: wheelchair Limitations: altered mental status History of Present Illness ED Provider: Dr. Saran Stauffer HPI narrative: 63-year-old male with a history of hyponatremia, interstitial lung disease, pulmonary fibrosis, colon cancer since 2018 with metastasis to use to the liver and lungs with progression of disease with PET scan 03/2020 which revealed increased size and number of multiple liver lesions, who was sent to the emergency department by his oncologist, Dr. Mckee for evaluation of altered mental status with symptoms including unable to sleep, pacing, agitation and being nonverbal. Dr. Mckee was concerned that the patient may have a psychiatric condition verses brain metastases from his colon cancer therefore she sent the patient to the emergency department for evaluation. According to Dr. Mckee the patient may have had a similar episode in the past secondary to psychiatric illness. The patient is treated with fentanyl and oxycodone but he has been on these medications for years. He does smoke marijuana. Dr. Mckee did do blood work on this patient prior to sending the patient to the emergency department for evaluation. Related Data Home Medications ?Medication ?Instructions ?Recorded ?Confirmed acetaminophen 650 mg 650 mg PO Q6H PRN Pain 08/04/22 03/03/24 tablet,extended release Previous Rx's ?Medication ?Instructions ?Recorded colostomy bag, non-sterile 1 08/14 #10 ea 03/29/21 (12 ) (Natura Drainable Pouch) omeprazole 40 mg capsule,delayed 40 mg PO DAILY@0630 09/07/23 release ondansetron HCl 8 mg tablet 8 mg PO Q6-8H PRN Nausea And 10/22/23 Vomiting #60 tabs ferrous sulfate 325 mg (65 mg 325 mg PO BID #60 tabs 11/30/23 iron) tablet (iron) dronabinol 10 mg capsule (Marinol) 10 mg PO BEDTIME #30 caps 03/03/24 oxycodone 5 mg tablet 5 mg PO Q8H PRN Pain #60 tabs 03/10/24 minocycline 100 mg tablet 100 mg PO DAILY #30 tabs 03/19/24 fentanyl 75 mcg/hr transdermal 1 patch transdermal Q72H #10 ea 03/28/24 patch cholestyramine (with sugar) 4 gram 1 ea PO BID #60 ea 03/29/24 powder for susp in a packet (Questran) Allergies Allergy/AdvReac Type Severity Reaction Status Date / Time prednisone [PREDNISONE] AdvReac Intermediate Psychosis Verified 04/09/24 10:45 Review of Systems Review of Systems: Yes Unobtainable due to mental status PMFSH Past Medical History Medical History Encounter for ostomy care education Multifocal pneumonia Hyponatremia Colon cancer metastasized to liver Pulmonary nodule Colon cancer metastasized to liver Pulmonary fibrosis ILD (interstitial lung disease) Chronic respiratory failure Tubular adenoma Colon cancer metastasized to liver Surgical History H/O knee surgery Family History Family History Son Cystic fibrosis Brother Esophageal cancer Maternal Aunt Lung cancer Social History Social History Household Members: Spouse Housing: House Do you presently have visiting nurse or other home services: Yes Patient Tobacco Use Status: Former Tobacco user Tobacco use type: Cigarette e-Cigarette/Vaping Use: Former Use Second Hand Smoke Exposure: No Substance Use Type: Marijuana Advance Directives: Yes Advance Directives on File: Yes Advance Directives Date on File: 12/12/22 service: No Current occupational status: employed Current occupation: [employer] Cognitive needs: No Hearing needs: No Vision needs: No Physical Exam ED Vital Signs: Vital Signs - 24 hr 04/09/24 10:42 04/09/24 15:04 Temperature 97.7 F Pulse Rate 100 116 H Respiratory Rate 22 H 20 Blood Pressure 154/68 H 136/42 L Pulse Oximetry 94 96 Oxygen Delivery Method Room Air Room Air BMI result Body Mass Index 18.2 Vital signs revealed elevated respiratory rate 22 and elevated blood pressure 154/68 Exam: General: Patient was awake he was agitated, he is shaking, he was wandering around in the room, he is nonverbal, he does not follow simple commands Head: Normocephalic, atraumatic EENT: Pupils were equal round reactive light sclera and conjunctiva are normal mouth revealed dry mucous membranes Lung: breath sounds symmetric, no wheezing, rales or rhonchi Heart: regular rate and rhythm, normal S1, S2 no murmurs or rubs Abdomen: soft, non-tender, nondistended, normal bowel sounds Neuro: Awake, agitated, nonverbal, uncooperative with exam Medications Administered Discontinued Medications Generic Name Dose Route Start Last Admin Trade Name Freq PRN Reason Stop Dose Admin Chlorpromazine HCl 25 mg 04/09/24 15:00 04/09/24 15:08 Chlorpromazine Hcl 25 Mg/Ml Ampul IM 04/09/24 15:01 25 mg ONCE ONE Administration Diphenhydramine HCl 25 mg 04/09/24 11:16 04/09/24 11:22 Diphenhydramine Hcl 50 Mg/Ml Vial IVPUSH 04/09/24 11:17 25 mg ONCE ONE Administration Diphenhydramine HCl 25 mg 04/09/24 11:51 04/09/24 11:55 Diphenhydramine Hcl 50 Mg/Ml Vial IVPUSH 04/09/24 11:52 25 mg ONCE ONE Administration Haloperidol Lactate 5 mg 04/09/24 11:16 04/09/24 11:23 Haloperidol Lactate 5 Mg/Ml Vial IVPUSH 04/09/24 11:17 5 mg STAT STA Administration Haloperidol Lactate 5 mg 04/09/24 11:51 04/09/24 11:55 Haloperidol Lactate 5 Mg/Ml Vial IVPUSH 04/09/24 11:52 5 mg STAT STA Administration Haloperidol Lactate 10 mg 04/09/24 13:21 04/09/24 13:33 Haloperidol Lactate 5 Mg/Ml Vial IVPUSH 04/09/24 13:22 10 mg ONCE ONE Administration Sodium Chloride 1,000 mls @ 999 mls/hr 04/09/24 11:18 04/09/24 11:23 Ns IV 04/09/24 12:18 999 mls/hr .Q1H1M STA Administration Lorazepam 2 mg 04/09/24 11:16 04/09/24 11:23 Lorazepam 2 Mg/Ml Vial IVPUSH 04/09/24 11:17 2 mg ONCE ONE Administration Olanzapine 10 mg 04/09/24 14:17 04/09/24 14:23 Olanzapine 10 Mg Vial IM 04/09/24 14:18 Not Given STAT STA Olanzapine 20 mg 04/09/24 14:19 04/09/24 14:25 Olanzapine 10 Mg Vial IM 04/09/24 14:20 20 mg STAT STA Administration Medical Decision Making Medical Decision Making [facility] Narrative: 63-year-old male with a history of hyponatremia, interstitial lung disease, pulmonary fibrosis, colon cancer since 2019 with metastasis to use to the liver and lungs with progression of disease with PET scan 03/2020 which revealed increased size and number of multiple liver lesions, who was sent to the emergency department by his oncologist, Dr. Mckee for evaluation of altered mental status with symptoms including unable to sleep, pacing, agitation and being nonverbal. Dr. Mckee was concerned that the patient may have a psychiatric condition verses brain metastases from his colon cance. Patient was vital signs were normal. Physical examination revealed that he was agitated, pacing in the room, nonverbal, not following commands. Differential diagnosis: ?Includes but is not limited to metastatic brain lesions, metabolic encephalopathy, psychiatric illness, electrolyte abnormalities, anemia Course: 16:19 The patient's laboratory evaluation was consistent with his baseline without any significant changes. Unfortunately the patient has been very agitated and difficult to sedate despite giving him multiple medications including Haldol IV, Zyprexa IM, Thorazine IM. At this point, the patient will need IV ketamine sedate him in order to obtain the CT scan of his brain. I also ordered ammonia level .At the end of my shift the patient's care was turned over to my colleague, Dr. Sallie Aquino. Admission/Observation Consideration of admission/observation: Escalation of care including admission/observation considered Consult Healthcare Provider Management of the patient was discussed with: Record Press Operator (Expect from phone call from hematology oncologist, Dr. Mckee) Lab Data [facility] Lab Attestation statement: I reviewed the patient's lab results. My independent interpretation patient's laboratory evaluation as follows: CBC revealed chronic changes with leukopenia with a 4700 macrocytic anemia with an H&H of 11.3 and 33.3 with an MCV of 104, CMP revealed a low chloride of 109 elevated glucose of 127 creatinine elevated 2.3. AST elevated 60. Alk-phos elevated 145 Chronic Conditions Patient?s care impacted by: Other (Metastatic colon cancer) Discharge Plan Discharge Clinical Impression: Acute alteration in mental status Patient Disposition: Still a Patient Prescriptions: No Action omeprazole 40 mg capsule,delayed release(DR/EC) 40 mg PO DAILY@0630 10RF cholestyramine (with sugar) [Questran] 4 gram powder in packet 1 ea PO BID Qty: 60 1RF (DME) Natura Drainable Pouch 1 / (12 ) Misc Qty: 10 6RF Rx Instructions: As Directed ondansetron HCl 8 mg tablet 8 mg PO Q6-8H PRN (Reason: Nausea And Vomiting) Qty: 60 0RF ferrous sulfate [iron] 325 mg (65 mg iron) Tablet 325 mg PO BID Qty: 60 2RF dronabinol [Marinol] 10 mg Capsule 10 mg PO BEDTIME Qty: 30 0RF oxycodone 5 mg Tablet 5 mg PO Q8H PRN (Reason: Pain) Qty: 60 0RF Rx Instructions: Partial Fill upon patient request. minocycline 100 mg Tablet 100 mg PO DAILY Qty: 30 3RF fentanyl 75 mcg/hr Patch 72 Hour 1 patch TRANSDERMAL Q72H Qty: 10 0RF Rx Instructions: Partial Fill upon patient request. acetaminophen 650 mg tablet extended release 650 mg PO Q6H PRN (Reason: Pain) Print Language: Wolof
--- NOTE | 2024-04-09 10:47 | PC.NURSE ---
Pt presents to ED from oncology, pt was given ativan via port at oncology due to anxiety and restlessness. Port accessed, pt has cancer w/ met. Pt is alert and oriented, breathing elevated, pale skin. Pt is very restless, cannot sit still. Denies any pain when asked, reports he is anxious and doesn't feel right. Also endorses feelings of vague SI due to his current state. Pt is on bedside singe winder. Changed into green safety clothing, pv installer tech aware
--- NOTE | 2024-04-09 10:53 | PC.NURSE ---
Belongings secured by tech, 1:1 sitter
[2024-04-09] MEDS: diphenhydrAMINE HCL 50 MG/ML VIAL 25 MG IVPUSH ×2 (11:22→11:55)
[2024-04-09] MEDS: Haloperidol Lactate 5 MG/ML VIAL IVPUSH ×2 (11:23→11:55)
[2024-04-09] MEDS: LORazepam 2 MG/ML VIAL IVPUSH (11:23)
--- NOTE | 2024-04-09 11:43 | PC.NURSE ---
this RN resumed care of pt at 1100. pt seemingly agitated, restless, fidgety, thrashing body throughout the room, unable to stay still/remain on bed w/o interfering w/ hospital equipment. provider notified/aware. pt verbalizing port on right side of chest accessed 1 [address] IN[address] in [address]. hay. port redressed by this RN. access flushes w/o complications - patent/intact. chemical restraint placed by MD. medication administered per provider order. effectiveness pending. delay in NS infusion as pt remains restless and this check writer salesperson does not want port to be removed by patient d/t pt's involuntary movements. pt waiting to go to CT at this time. respirations even/labored as pt seems to be seemingly anxious. pt educated on importance of slowing down breathing. lights dimmed to prevent stimuli. 1:1 sitter present. plan of care ongoing. call elam placed within reach.
--- NOTE | 2024-04-09 11:57 | PC.NURSE ---
CT came to take pt to obtain imaging but did not take pt as pt remains extremely agitated/restless and having involuntary movements of his body. MD notified aware. medication administered per provider order. effectiveness pending. 1:1 sitter remains bedside for safety precautions.
--- NOTE | 2024-04-09 12:30 | PC.NURSE ---
pt remains severely uncooperative/agitated/restless. pt continuously attempting to get out of bed w/ unsteady gait. pt not easy to redirect. pt placed in 4 point soft physical restraint per MD order as previous medication administrations were ineffective. respirations remain even/slightly labored. plan of care ongoing.
[2024-04-09] MEDS: Haloperidol Lactate 5 MG/ML VIAL 10 MG IVPUSH (13:33)
--- NOTE | 2024-04-09 13:38 | PC.NURSE ---
pt remains in 4 point soft restraints. pt continues to be restless/uncooperative/agitated/disoriented/attempting to remove hospital equipment. provider notified/aware. pt remedicated per provider order. effectiveness pending.
[2024-04-09] MEDS: OLANZapine 10 MG VIAL 20 MG IM (14:25)
--- NOTE | 2024-04-09 14:30 | PC.NURSE ---
pt continues to remain in 4 point soft restraints in all extremities. pt continues to be agitated/restless/combative/uncooperative despite previous interventions. medication administered per provider order. effectiveness pending. 1:1 sitter remains present. plan of care ongoing.
[2024-04-09 15:04] VITALS: BP 136/42; PULSE 116; RESP 20; O2SAT 96
[2024-04-09] MEDS: chlorproMAZINE HCl 25 MG/ML AMPUL IM (15:08)
--- NOTE | 2024-04-09 15:16 | PC.NURSE ---
pt still unable to have CT completed as he remains uncooperative/agitated/restless. continues to thrash body throughout despite being in soft 4 point restraints. provider notified/aware. medication administered per provider order. effectiveness pending.
[2024-04-09] MEDS: Ketamine HCl/NS 50 MG/5 ML SYRINGE 59.1 MG IVPUSH ×2 (17:02→17:28)
[2024-04-09 17:40] VITALS: BP 127/70; PULSE 94; RESP 18; O2SAT 95
[2024-04-09] MEDS: iohexoL 350 MG/ML 100 ML INFUS..BTL 85 ML IV (17:45)
--- NOTE | 2024-04-09 17:46 | PC.NURSE ---
This RN monitored while pt undergoing Ketamine for CT scan, RT as well. Pt remained alert, less agitated and less movement. Respiratory drive remained intact, SPO2 >94% and pt monitored on end tidal. airway patent. RN and RT accompanied pt to CT, remained on montior, no incidences. Pt now remains restless and agitated, VSS, sinus tach on monitor tech.
[2024-04-09 17:54] LABS: Ammonia 33 umol/L (13-55)
[2024-04-09] MEDS: ondansetron HCL 4 MG/2 ML VIAL IVPUSH (18:01)
--- NOTE | 2024-04-09 19:00 | PC.NURSE ---
bilateral soft restraints on ankles removed at this time as pt is sleeping/in no apparent distress. effectiveness pending. plan of care ongoing.
--- NOTE | 2024-04-09 19:15 | PC.NURSE ---
soft restraints also removed on wrists bilaterally as pt is tolerating no restraints on bilateral LE w/o complications. pt continues to rest in no apparent distress. effectiveness pending.
--- NOTE | 2024-04-09 19:58 | PC.NURSE ---
pt continues to remain free from soft restraints at this time. pt tolerating transition well. no sob/wob noted. respirations even/unlabored. lights dimmed to prevent stimuli. 1:1 sitter remains present.
[2024-04-09 22:20] VITALS: BP 126/70; PULSE 84; RESP 14; O2SAT 98
--- NOTE | 2024-04-09 22:42 | PC.NURSE ---
straight catheterization performed. 3:1 assist needed to complete intervention. 300ml of dark yellow/foul smelling urine noted immediately post output. urine obtained/sent to lab. 1:1 sitter remains present.
[2024-04-09 22:50] LABS: Appearance Urine Clear; Color Urine Yellow; Glucose Urine UA Negative (Negative); Leukocyte Esterase Urine Negative (Negative); Nitrite Urine Negative (Negative); PH 5.5 (5.0-9.0); Specific Gravity - Urine >= 1.030 (1.005-1.025); Urine Blood Negative (Negative); Urine Ketones Trace mg/dL (Negative); Urine Protein Trace mg/dL (Neg-Trace)
[2024-04-09 23:16] LABS: Amphetamine Screen Urine Not Detected (Not Detect); Barbiturates, Urine Not Detected (Not Detect); Benzodiazepines Screen Urine Not Detected (Not Detect); Buprenorphine Scr Not Detected (Not Detect); Cannabinoid Screen Urine POSITIVE (Not Detect); Cocaine Screen Urine Not Detected (Not Detect); Fentanyl, urine POSITIVE (Not Detect); Methadone Screen, Urine Not Detected (Not Detect); Opiate Screen Urine Not Detected (Not Detect); Oxycodone Screen Urine Positive (Not Detect); Phencyclidine Screen Urine Not Detected (Not Detect)
[2024-04-09 23:25] VITALS: BP 115/57; PULSE 74; RESP 16; TEMP 36.5; O2SAT 100
--- NOTE | 2024-04-09 23:49 | MHC.EDTECH ---
This tech took over care of patient at 2300,vitals taken,patient was repositioned with Snehal CARRILLO patient is very restless,this tech will be the 1:1 sitter at this time for safety.
[2024-04-10] VITALS (9 sets, daily range): BP systolic 92–129; BP diastolic 53–64; PULSE 56–82; RESP 12–18; TEMP 36.4–36.8; O2SAT 95–100
--- NOTE | 2024-04-10 00:58 | MHC.EDTECH ---
Vitals taken at this time,patient is very restless tried to get out of bed,patient was re directed,patient is confused and grabbing at the air,RN aware
[2024-04-10] MEDS: fentaNYL citrate/PF 100 MCG/2 ML VIAL 50 MCG IVPUSH (01:42)
--- NOTE | 2024-04-10 06:45 | MHC.EDTECH ---
pt struck this tech 5 times over the course of 1:1 observation. vital signs obtained. pt restless but phases in and out of comfort. temperature not obtained due to pt refusing
--- NOTE | 2024-04-10 12:08 | PC.NURSE ---
colostomy was emptied, dark brown liquid noted.
--- NOTE | 2024-04-10 13:46 | P.CNPS_ITS ---
History of Present Illness Date of Service: 04/10/24 Chief Complaint: Anxiety Requesting physician: Cherri Mcleod Discussed with referring provider: Yes Sources of Information: patient interviewed, chart reviewed and crisis/core team assessment reviewed HPI Narrative: Patient is a 63-year-old male with history of colon cancer metastasized to liver/long, on 72 hour fentanyl patch 75 mcg, who presents for dysregulated, delirious behavior. Patient's Selena is also present. Both report no history of psychiatric illness other than patient having a panic attack 1 time several years ago. Patient's reports that he was his regular self until this past Sunday/Sunday when he started appearing restless, pacing around the house, not sleeping quite as much; he slept during the day on Sunday but again was restles s which continued into Sunday. On Sunday patient was due to have his fentanyl patch replaced with a new 1 but he was too restless for her to do so; his behaviors made Selena thought that perhaps he was in withdrawal. That same Sunday they went to the oncologist and while at her office, patient presented even more delirious, not knowing where was and patient was sent to the emergency room. In the ED, his son visited and patient did not know son was, did know who his was, did know where he was. On morning 01:42 patient was given fentanyl 50 mcg IV. This morning contract writer meeting with patient and his Selena who says that he is now doing much better and seems that he is headed back towards his regular self, though not there yet. Patient alert and oriented and presents overall with organized in speech and behavior; though he does not really remember what happened the past couple days but he understands his illness and is able to discuss this event reasonably. Patient does not want to go to the inpatient unit and would like to avoid taking more medication if possible. Discussed with both patient and that this 1st time incident of dysregulation seems to correlate with waning effective a fentanyl patch and missing replacement with a new 1; patient symptoms improved once he got even partial dose of fentanyl, making this most likely a case of delirium secondary to withdrawal. Past Psychiatric History: One panic attack years ago; otherwise no psych history Medical Evaluation Reviewed: Yes [facility] Medical History Encounter for ostomy care education Multifocal pneumonia Hyponatremia Colon cancer metastasized to liver Pulmonary nodule Colon cancer metastasized to liver Pulmonary fibrosis ILD (interstitial lung disease) Chronic respiratory failure Tubular adenoma Colon cancer metastasized to liver Surgical History H/O knee surgery Diagnostics Vital Signs (24Hr): Vital Signs - 24 hr 04/09/24 15:04 04/09/24 17:40 04/09/24 22:20 Temperature Pulse Rate 116 H 94 84 Respiratory Rate 20 18 14 Blood Pressure 136/42 L 127/70 126/70 Pulse Oximetry 96 95 98 Oxygen Delivery Method Room Air Room Air Room Air 04/09/24 23:25 04/10/24 00:57 04/10/24 01:54 Temperature 97.7 F Pulse Rate 74 82 62 Respiratory Rate 16 18 14 Blood Pressure 115/57 L 129/64 97/54 L Pulse Oximetry 100 100 100 Oxygen Delivery Method Room Air Room Air Room Air 04/10/24 01:59 04/10/24 02:03 04/10/24 02:07 Temperature 97.8 F Pulse Rate 66 73 66 Respiratory Rate 16 18 18 Blood Pressure 94/53 L 107/62 97/59 L Pulse Oximetry 100 100 100 Oxygen Delivery Method Room Air Room Air Room Air 04/10/24 04:18 04/10/24 06:43 04/10/24 09:54 Temperature 97.5 F Pulse Rate 79 61 56 Respiratory Rate 16 12 16 Blood Pressure 104/56 L 92/62 Pulse Oximetry 98 95 96 Oxygen Delivery Method Room Air Room Air Room Air BMI result Body Mass Index 18.2 Labs Labs: Laboratory Results - last 48 hr 04/09/24 04/09/24 17:45 22:41 Ammonia 33 Urine Color Yellow Urine Appearance Clear Urine pH 5.5 Ur Specific Mcgregor >= 1.030 H Urine Protein Trace Urine Glucose (UA) Negative Urine Ketones Trace Urine Blood Negative Urine Nitrite Negative Ur Leukocyte Esterase Negative Urine Opiates Screen Not Detected Ur Buprenorphine Scrn Not Detected Ur Oxycodone Screen Positive H Urine Methadone Screen Not Detected Urine Fentanyl Screen POSITIVE H Ur Barbiturates Screen Not Detected Ur Phencyclidine Scrn Not Detected Ur Amphetamines Screen Not Detected U Benzodiazepines Scrn Not Detected Urine Cocaine Screen Not Detected U Marijuana (THC) Screen POSITIVE H Imaging Radiology Impressions: ITS Impressions Head CT 04/09/24 17:15 IMPRESSION: No acute intracranial pathology. No CT evidence of intracranial metastatic disease. Electronically signed by: Grayson Hanley MD 04/09/2024 06:31 PM EDT RP Mental Status Exam Mental Status Exam Narrative: Alert and oriented; speech spontaneous and organized; thought process logical and linear; behaviors appropriate. Insight and judgment intact; no SI/HI/AVH. Medications Allergies Allergies Allergy/AdvReac Type Severity Reaction Status Date / Time prednisone [PREDNISONE] AdvReac Intermediate Psychosis Verified 04/09/24 10:45 Assessment & Plan Assessment & Plan (1) Acute drug withdrawal syndrome with delirium: Status: Acute Code(s): F19.931 - Other psychoactive substance use, unspecified with withdrawal delirium Assessment and Plan: Resolving (2) Opiate withdrawal: Status: Acute Code(s): F11.93 - Opioid use, unspecified with withdrawal (3) Colon cancer: Status: Acute Code(s): C18.9 - Malignant neoplasm of colon, unspecified (4) ILD (interstitial lung disease): Status: Acute Code(s): J84.9 - Interstitial pulmonary disease, unspecified Plan Patient is a 63-year-old male with history of colon cancer metastasized to liver/long, on 72 hour fentanyl patch 75 mcg, who presents for dysregulated, delirious behavior. Patient's Selena is also present. Both report no history of psychiatric illness other than patient having a panic attack 1 time several years ago. Patient's reports that he was his regular self until this past Sunday/Sunday when he started appearing restless, pacing around the house, not sleeping quite as much; he slept during the day on Sunday but again was restless which continued into Sunday. On Sunday patient was due to have his fentanyl patch replaced with a new 1 but he was too restless for her to do so; his behaviors made Selena thought that perhaps he was in withdrawal. That same Sunday they went to the oncologist and while at her office, patient presented even more delirious, not knowing where was and patient was sent to the emergency room. In the ED, his son visited and patient did not know son was, did know who his was, did know where he was. On morning 01:42 patient was given fentanyl 50 mcg IV. This morning contract writer meeting with patient and his Selena who says that he is now doing much better and seems that he is headed back towards his regular self, though not there yet. Patient alert and oriented and presents overall with organized in speech and behavior; though he does not really remember what happened the past couple days but he understands his illness and is able to discuss this event reasonably. Patient does not want to go to the inpatient unit and would like to avoid taking more medication if possible. Discussed with both patient and that this 1st time incident of dysregulation seems to correlate with waning effective a fentanyl patch and missing replacement with a new 1; patient symptoms improved once he got even partial dose of fentanyl, making this most likely a case of delirium secondary to withdrawal. Impression: Patient does not meet inpatient level of care and does not need psychiatric admission. Whatever caused his dysregulation seems to be resolving. Patient very minimal psychiatric history (briefly depressed when he got cancer diagnosis; had a 1 time panic attack years ago) and no history of manic or psychotic behaviors. Head CT performed and currently no concern for brain metastasis. This is the 1st time any such event has ever happened and patient is already returning back to his regular self. As mentioned above, this bout of dysregulation/delirium seems most likely due to opiate withdrawal as his dysregulation started with opiate withdrawal and has been resolving once he got opioids replaced. Patient is not want to go on inpatient unit or start on mood stabilizing medications. He says if it happens again then OK. Technician Anatomic Pathology agrees that it is premature to start patient on psychotropic medications and Patient's agrees. Patient is not in imminent risk for harm to self or others. -recommend consider giving patient p.o. opioids for withdrawal symptoms in- between patches Total time managing care of this patient today ____ minutes. Patient educated on: diagnosis, medication risk/benefits, substance abuse and medical condition Informed Consent: understands
--- NOTE | 2024-04-10 14:02 | PHA.MEDREC ---
Addendum entered by Sedrick Lawrence [facility] 04/10/24 15:13: MED REC CHECKED BY [facility] Original Note: Pharmacy Consult ? Medication Reconciliation Pharmacy has completed the medication reconciliation. Spoke to patient's to confirm med list. states patient takes Fentanyl 75 mcg Q72H . last put on Sunday04-06-24 new patch is for sun04-09-24
[2024-04-10] MEDS: fentaNYL 75 MCG PATCH.TD72 TRANSDERMA (15:04)
--- NOTE | 2024-04-10 15:39 | MHC.CARE ---
Pt seen by hospital psychiatry team, CARE team assessment not warranted, pt to discharge home.
== END 2024-04-10 15:37 | disposition home or self-care (01) ==
PROVIDERS: Emergency Medicine Emergency Medical Services; Emergency Provider Emergency Medicine
DX: F19.931 Other psychoactive substance use, unspecified with withdrawal delirium (principal); F11.93 Opioid use, unspecified with withdrawal; R41.82 Altered mental status, unspecified; R45.1 Restlessness and agitation; F41.9 Anxiety disorder, unspecified; C18.9 Malignant neoplasm of colon, unspecified; C78.7 Secondary malignant neoplasm of liver and intrahepatic bile duct; C78.00 Secondary malignant neoplasm of unspecified lung; Z79.899 Other long term (current) drug therapy
CPT/HCPCS: 36415; 70470; 80307; 81003; 82140; 96372; 96374; 96375; 96376; 99285; J1200; J1630; J1642; J2060; J2359; J2405; J3010; J3230; Q9967

== ENCOUNTER → 2024-04-09 10:47 | Outpatient (BNV) | payer OTHER, SELFPAY | PROVIDERS: Emergency Provider Emergency Medicine; Visit Provider Psychiatry & Neurology Psychiatry | DX: F19.931 Other psychoactive substance use, unspecified with withdrawal delirium (principal); F11.93 Opioid use, unspecified with withdrawal; C18.9 Malignant neoplasm of colon, unspecified; J84.9 Interstitial pulmonary disease, unspecified | CPT/HCPCS: 99283 ==

== ENCOUNTER 2024-04-27 21:43 | Emergency (ER) | payer OTHER, SELFPAY ==
[2024-04-27 21:53] VITALS: BP 124/76; PULSE 76; RESP 18; TEMP 36.8; O2SAT 95; BMI 16.9
--- NOTE | 2024-04-27 22:17 | ED.ANXIETY ---
HPI - Anxiety General Chief Complaint: Anxiety Stated Complaint: anxiety Time Seen by Provider: 04/27/24 22:06 Source: patient Mode of arrival: ambulatory Limitations: no limitations History of Present Illness HPI narrative: 63-year-old male with a PMH significant for ILD/pulmonary fibrosis and metastatic colon cancer with metastasis to liver and lung who was brought to emergency department for evaluation of anxiety, pacing, feelings like he was jumping out of his skin. Patient was seen on 04/09/2024 with similar symptoms. That time was felt that his symptoms may be caused by withdrawal from fentanyl or secondary to anxiety. Patient's states that they do have an appointment on , 05/08/2024 to see a prescribing provider. Related Data Home Medications ?Medication ?Instructions ?Recorded ?Confirmed acetaminophen 650 mg 650 mg PO Q6H PRN Pain 08/04/22 04/10/24 tablet,extended release loperamide 2 mg tablet (Imodium 4 mg PO DAILY PRN Loose Stool 04/10/24 04/10/24 A-D) Previous Rx's ?Medication ?Instructions ?Recorded colostomy bag, non-sterile 1 08/14 #10 ea 03/29/21 (12 ) (Natura Drainable Pouch) omeprazole 40 mg capsule,delayed 40 mg PO DAILY@0630 09/07/23 release ondansetron HCl 8 mg tablet 8 mg PO Q6-8H PRN Nausea And 10/22/23 Vomiting #60 tabs ferrous sulfate 325 mg (65 mg 325 mg PO BID #60 tabs 11/30/23 iron) tablet (iron) cholestyramine (with sugar) 4 gram 1 ea PO BID #60 ea 03/29/24 powder for susp in a packet (Questran) oxycodone 5 mg tablet 5 mg PO Q8H PRN Pain #60 tabs 04/11/24 Magic Mouthwash 10 ml PO TID #240 mL 04/16/24 Diphen/Lido/Antacid 1:1:1 240 mL suspension doxycycline hyclate 100 mg tablet 100 mg PO BID #20 tabs 04/16/24 fentanyl 75 mcg/hr transdermal 1 patch transdermal Q72H #10 ea 04/25/24 patch lorazepam 1 mg tablet (Ativan) 1 mg PO TID PRN anxiety #20 tabs 04/28/24 quetiapine 25 mg tablet (Seroquel) 25 mg PO BEDTIME #30 tabs 04/28/24 Allergies Allergy/AdvReac Type Severity Reaction Status Date / Time prednisone [PREDNISONE] AdvReac Intermediate Psychosis Verified 04/27/24 21:53 [facility] Past Medical History Medical History Encounter for ostomy care education Multifocal pneumonia Hyponatremia Colon cancer metastasized to liver Pulmonary nodule Colon cancer metastasized to liver Pulmonary fibrosis ILD (interstitial lung disease) Chronic respiratory failure Tubular adenoma Colon cancer metastasized to liver Surgical History H/O knee surgery Family History Family History Son Cystic fibrosis Brother Esophageal cancer Maternal Aunt Lung cancer Social History Social History Household Members: Spouse Housing: House Do you presently have visiting nurse or other home services: Yes Alcohol intake: former Year quit: 2019 Patient Tobacco Use Status: Former Tobacco user Tobacco use type: Cigarette Smoked in Last 30 Days: No e-Cigarette/Vaping Use: Former Use Second Hand Smoke Exposure: No Use of substances other than those prescribed or required for medical reasons: Yes Substance Use Type: Marijuana Substance Use Frequency: Occasionally Advance Directives: Yes Advance Directives on File: Yes Advance Directives Date on File: 12/12/22 Do you have a plan to hurt others: No Plan service: No Current occupational status: employed Current occupation: [employer] Cognitive needs: No Hearing needs: No Vision needs: No Physical Exam Vital Signs: Vital Signs: Last Vital Signs Temp 98.4 F 04/28/24 00:21 Pulse 76 04/28/24 00:21 Resp 14 04/28/24 00:21 BP 109/47 L 04/28/24 00:21 Pulse Ox 98 04/28/24 00:21 O2 Del Method Room Air 04/28/24 00:21 BMI result Body Mass Index 16.9 Vital signs were normal Exam: General: Patient appears very anxious, he was crying, he was tremulous, he was very thin and cachectic appearing Heart: regular rate and rhythm, normal S1, S2 no murmurs or rubs Abdomen: soft, non-tender, nondistended, normal bowel sounds Neuro: Awake, alert, oriented, normal speech, Psych: Anxious, pleasant, cooperative Medications Administered Discontinued Medications Generic Name Dose Route Start Last Admin Trade Name Eusebio TANNER Reason Stop Dose Admin Lorazepam 1 mg 04/27/24 22:32 04/27/24 22:42 Lorazepam 1 Mg Tablet PO 04/27/24 22:33 1 mg ONCE ONE Administration Quetiapine Fumarate 25 mg 04/27/24 22:17 04/27/24 22:42 Quetiapine Fumarate 25 Mg Tablet PO 04/27/24 22:18 25 mg ONCE ONE Administration Medical Decision Making Medical Decision Making MDM Narrative: 63-year-old male with a PMH significant for ILD/pulmonary fibrosis and metastatic colon cancer with metastasis to liver and lung who was brought to emergency department for evaluation of anxiety, pacing, feelings like he was jumping out of his skin. Patient was seen on 04/09/2024 with similar symptoms. Patient was CT scan of the brain which was negative for metastatic disease. It was felt that the patient's symptoms may have been caused by fentanyl withdrawal and by anxiety. Patient's vital signs were normal. Patient's exam is consistent with severe anxiety. Differential diagnosis: ?Includes but is not limited to anxiety, depression, stress secondary to end-stage cancer Patient was initially treated with the following:Seroquel 25 mg orally and Ativan 1 mg orally Course: The patient did have significant improvement of his anxiety with the above treatment patient was given another dose of Seroquel 25 mg orally then discharged home. Patient was prescribed Seroquel 25 mg and Ativan 1 mg, 1 pill 3 times a day as needed for anxiety. He was given printed and verbal instructions and discharged home Admission/Observation Consideration of admission/observation: Escalation of care including admission/observation considered (No) Independent Historian Clinical information obtained from an independent historian. History obtained from or confirmed by: Spouse Prescription Management I considered prescription management with: Other (Stage IV metastatic colon cancer) Discharge Plan Discharge Clinical Impression: Anxiety Patient Disposition: Home, Self-Care Additional Instructions: Take Seroquel (quetiapine) 25 mg pills, 1 pill at night for sleep and anxiety Take Ativan (lorazepam) he was 1 mg pills, 1 pill 3 times a day as needed for anxiety Continue your other medications as prescribed by your providers Follow-up with your [facility] prescribing provider as scheduled Please return to the emergency department if your symptoms get worse or if you develop any symptoms that are concerning to you. Prescriptions: New quetiapine [Seroquel] 25 mg tablet 25 mg PO BEDTIME Qty: 30 0RF lorazepam [Ativan] 1 mg tablet 1 mg PO TID PRN (Reason: anxiety) Qty: 20 0RF Rx Instructions: Patient may request partial fill No Action omeprazole 40 mg capsule,delayed release(DR/EC) 40 mg PO DAILY@0630 10RF cholestyramine (with sugar) [Questran] 4 gram powder in packet 1 ea PO BID Qty: 60 1RF (DME) Natura Drainable Pouch 1 /2 (12 ) Misc Qty: 10 6RF Rx Instructions: As Directed ondansetron HCl 8 mg tablet 8 mg PO Q6-8H PRN (Reason: Nausea And Vomiting) Qty: 60 0RF ferrous sulfate [iron] 325 mg (65 mg iron) Tablet 325 mg PO BID Qty: 60 2RF oxycodone 5 mg Tablet 5 mg PO Q8H PRN (Reason: Pain) Qty: 60 0RF Rx Instructions: Partial Fill upon patient request. doxycycline hyclate 100 mg Tablet 100 mg PO BID Qty: 20 0RF Magic Mouthwash Diphen/Lido/Antacid 1:1:1 240 mL Suspension 10 ml PO TID Qty: 240 0RF Rx Instructions: Lidocaine Viscous 2 % 80mL; diphenhydramine 12.5 mg/5 mL 80mL; aluminum-mag hydrox-simeth [id number]/5mL 80mL fentanyl 75 mcg/hr Patch 72 Hour 1 patch TRANSDERMAL Q72H Qty: 10 0RF Rx Instructions: Partial Fill upon patient request. acetaminophen 650 mg tablet extended release 650 mg PO Q6H PRN (Reason: Pain) loperamide [Imodium A-D] 2 mg Tablet 4 mg PO DAILY PRN (Reason: Loose Stool) Print Language: Danish
[2024-04-27] MEDS: QUEtiapine Fumarate 25 MG TABLET PO (22:42)
[2024-04-27] MEDS: LORazepam 1 MG TABLET PO (22:42)
[2024-04-28 00:21] VITALS: BP 109/47; PULSE 76; RESP 14; TEMP 36.9; O2SAT 98
[2024-04-28] MEDS: QUEtiapine Fumarate 25 MG TABLET PO (00:52)
[2024-04-28 01:06] VITALS: BP 109/47; PULSE 76; RESP 14; TEMP 36.9; O2SAT 98
== END 2024-04-28 01:07 | disposition home or self-care (01) ==
PROVIDERS: Emergency Provider Emergency Medicine Emergency Medical Services; PCP Internal Medicine
DX: F41.1 Generalized anxiety disorder (principal); F43.0 Acute stress reaction; Z79.899 Other long term (current) drug therapy; Z87.891 Personal history of nicotine dependence
CPT/HCPCS: 96374; 99284

== ENCOUNTER 2024-05-13 21:50 | Emergency (ER) | payer OTHER, SELFPAY ==
--- NOTE | 2024-05-13 | ECG_ITS ---
Test Reason : chest pain Blood Pressure : / mmHG Vent. Rate : 086 BPM Atrial Rate : 086 BPM P-R Int : 160 ms QRS Dur : 076 ms QT Int : 364 ms P-R-T Axes : 024 044 000 degrees QTc Int : 435 ms Sinus rhythm with occasional Premature ventricular complexes Otherwise normal ECG When compared with ECG of 31-JUL-2023 13:31, Premature ventricular complexes are now Present CA interval has decreased QRS duration has decreased T wave inversion now evident in Inferior leads Referred By: Generic ED Physician Electronically Signed By:TALIA GUALLPA
--- NOTE | ~2024-05-13 | XR_ITS ---
EXAMINATION: XR CHEST CLINICAL INFORMATION: Cough. COMPARISON: Chest radiograph 09/28/2023. PET/CT 08/14/2023. CT chest 08/02/2023. Chest radiograph 08/01/2023. No dense pulmonary consolidation visualized. The cardiac silhouette is normal in size. Mild aortic calcific atherosclerosis. TECHNIQUE: Frontal view of the chest was obtained. FINDINGS: The right pectoral tunneled internal jugular catheter terminates in the region of the cavoatrial junction. Low lung volumes are present. No effusions or pneumothoraces noted. Multifocal coarse and medium pulmonary reticular opacities are present throughout the lungs. Findings are similar to findings noted on the comparison chest radiograph of 08/01/2023. XR/XR chest 1V IMPRESSION: *No definitive acute cardiopulmonary abnormalities noted. *Multifocal chronic interstitial disease of the lungs unchanged compared with chest radiograph 08/01/2023. Electronically signed by: Sunil Ovalles MD 05/14/2024 01:18 AM EDT
[2024-05-13 22:07] VITALS: BP 103/64; PULSE 94; RESP 18; TEMP 36.6; O2SAT 95; BMI 16.5
[2024-05-13 22:37] LABS: Hematocrit 34.5 % (42.0-52.0); Hemoglobin 11.6 g/dl (14.0-18.0); Mean Corpuscular HGB Conc 33.6 g/dl (31.0-36.0); Mean Corpuscular Hemoglobin 34.8 pg (27.0-33.0); Mean Corpuscular Volume 103.6 fL (80.0-98.0); Mean Platelet Volume 12.4 fL (9.4-12.4); Red Blood Count 3.33 X10*6/uL (4.60-5.80); Red Cell Distribution Width 14.9 % (11.0-16.0)
[2024-05-13 22:47] LABS: Platelet Count 80 X10*3/uL (160-400)
[2024-05-13 22:53] LABS: Alanine Aminotransferase 35 U/L (0-40); Albumin Level 3.2 g/dL (3.5-5.0); Alkaline Phosphatase 145 U/L (39-117); Anion Gap 13 (12-20); Aspartate Amino Transferase 39 U/L (5-37); Bilirubin Total 2.3 mg/dL (0.0-1.0); Blood Urea Nitrogen 15 mg/dL (9-16); Calcium 9.2 mg/dL (8.4-10.2); Carbon Dioxide 21 mmol/L (22-29); Chloride 103 mmol/L (96-108); Creatinine Clr Calc Pharmacy 71.5; Estimated Glomerular Filt Rate > 60; Glucose Random 123 mg/dL (60-115); Potassium 4.5 mmol/L (3.3-5.1); Sodium 132 mmol/L (135-145); Total Protein 7.9 g/dL (6.5-8.0)
[2024-05-13 23:12] LABS: Influenza A PCR NEGATIVE (Negative); Influenza B PCR NEGATIVE (Negative); Resp Syncy Virus RNA Qual PCR NEGATIVE (Negative); SARS COV2 PCR INHOUSE NEGATIVE (Negative)
--- NOTE | 2024-05-14 00:01 | ED.GENADULT ---
HPI - General Adult General Chief complaint: General Medical Stated complaint: flu like symptoms, stage 4 colon cancer Time Seen by Provider: 05/13/24 23:35 Source: patient Mode of arrival: ambulatory Limitations: no limitations History of Present Illness ED Provider: nelson SCHUMACHER narrative: Patient has stage IV colon cancer with metastases to liver and lung comes here as since yesterday been coughing with chest pain vomiting after cough and having diffuse pain patient's use her fentanyl patch and feeling much better after arrival no fever no chills patient has a COVID and flu vaccine last week Related Data Home Medications ?Medication ?Instructions ?Recorded ?Confirmed acetaminophen 650 mg 650 mg PO Q6H PRN Pain 08/04/22 04/10/24 tablet,extended release loperamide 2 mg tablet (Imodium 4 mg PO DAILY PRN Loose Stool 04/10/24 04/10/24 A-D) Previous Rx's ?Medication ?Instructions ?Recorded colostomy bag, non-sterile 1 08/14 #10 ea 03/29/21 (12 ) (Natura Drainable Pouch) omeprazole 40 mg capsule,delayed 40 mg PO DAILY@0630 09/07/23 release ondansetron HCl 8 mg tablet 8 mg PO Q6-8H PRN Nausea And 10/22/23 Vomiting #60 tabs ferrous sulfate 325 mg (65 mg 325 mg PO BID #60 tabs 11/30/23 iron) tablet (iron) cholestyramine (with sugar) 4 gram 1 ea PO BID #60 ea 03/29/24 powder for susp in a packet (Questran) oxycodone 5 mg tablet 5 mg PO Q8H PRN Pain #60 tabs 04/11/24 Magic Mouthwash 10 ml PO TID #240 mL 04/16/24 Diphen/Lido/Antacid 1:1:1 240 mL suspension doxycycline hyclate 100 mg tablet 100 mg PO BID #20 tabs 04/16/24 fentanyl 75 mcg/hr transdermal 1 patch transdermal Q72H #10 ea 04/25/24 patch lorazepam 1 mg tablet (Ativan) 1 mg PO TID PRN anxiety #20 tabs 04/28/24 quetiapine 25 mg tablet (Seroquel) 25 mg PO BEDTIME #30 tabs 04/28/24 Allergies Allergy/AdvReac Type Severity Reaction Status Date / Time prednisone [PREDNISONE] AdvReac Intermediate Psychosis Verified 05/13/24 22:12 Review of Systems Review of Systems: Yes all other systems are reviewed and are negative [facility] Past Medical History Medical History Encounter for ostomy care education Multifocal pneumonia Hyponatremia Colon cancer metastasized to liver Pulmonary nodule Colon cancer metastasized to liver Pulmonary fibrosis ILD (interstitial lung disease) Chronic respiratory failure Tubular adenoma Colon cancer metastasized to liver Surgical History H/O knee surgery Family History Family History Son Cystic fibrosis Brother Esophageal cancer Maternal Aunt Lung cancer Social History Social History Household Members: Spouse Housing: House Do you presently have visiting nurse or other home services: Yes Alcohol intake: former Year quit: 2019 Patient Tobacco Use Status: Former Tobacco user Tobacco use type: Cigarette e-Cigarette/Vaping Use: Former Use Second Hand Smoke Exposure: No Substance Use Type: Marijuana Advance Directives: Yes Advance Directives on File: Yes Advance Directives Date on File: 12/12/22 service: No Current occupational status: employed Current occupation: [employer] Cognitive needs: No Hearing needs: No Vision needs: No Physical Exam ED Vital Signs: Vital Signs - 24 hr 05/13/24 22:07 Temperature 97.9 F Pulse Rate 94 Respiratory Rate 18 Blood Pressure 103/64 Pulse Oximetry 95 Oxygen Delivery Method Room Air BMI result Body Mass Index 16.5 Appearance: Alert. Oriented X3. No acute distress. Thin emaciated Eyes: PERRLA, No Nystagmus ENT: Pharynx normal. Oral Mucosa moist Neck: Normal inspection. Neck supple. CVS: Normal heart rate and rhythm. Pulses normal. Respiratory: No respiratory distress. Equal air entry bilateral, prolonged expiration occasional crackles Abdomen: Soft and nontender. Bowel sounds are present, no mass palpable, no CVA tenderness Skin: Skin warm and dry. Normal skin color. Normal skin turgor. Extremities: No lower extremity edema. No calf tenderness Neuro: Oriented X 3. No motor deficit. No sensory deficit.No cerebellar signs , cranial nerves II-XII intact Medical Decision Making Medical Decision Making MDM Narrative: Patient with stage IV colon cancer comes here for pain all over the body with cough vomiting patient has got better off its own after coughing in the ER mucous got clear chest x-ray without any significant infiltrate will discharge patient back to [facility] Differential Diagnosis Differential Diagnoses: The differential diagnosis associated with the presentation includes Pneumonia/CHF/bronchitis Admission/Observation Consideration of admission/observation: Escalation of care including admission/observation considered Lab Data [facility] Lab Attestation statement: I reviewed the patient's lab results. 05/13/24 22:28 05/13/24 22:28 Labs: Lab Results 05/13/24 Range/Units 22:28 WBC 6.0 (4.8-10.8) X10*3/uL RBC 3.33 L (4.60-5.80) X10*6/uL Hgb 11.6 L (14.0-18.0) g/dl Hct 34.5 L (42.0-52.0) % MCV 103.6 H (80.0-98.0) fL MCH 34.8 H (27.0-33.0) pg MCHC 33.6 (31.0-36.0) g/dl RDW 14.9 (11.0-16.0) % Plt Count 80 L D (160-400) X10*3/uL MPV 12.4 (9.4-12.4) fL Absolute Nucleated RBC 0.000 (0.0-0.012) X10*3/uL Nucleated RBC % (auto) 0.0 (0.0-0.2) /100WBC Sodium 132 L (135-145) mmol/L Potassium 4.5 (3.3-5.1) mmol/L Chloride 103 (96-108) mmol/L Carbon Dioxide 21 L (22-29) mmol/L Anion Gap 13 (12-20) BUN 15 (9-16) mg/dL Creatinine 0.78 (0.5-1.4) mg/dL Estim Creat Clear Calc 71.5 Estimated GFR > 60 Random Glucose 123 H (60-115) mg/dL Calcium 9.2 (8.4-10.2) mg/dL Total Bilirubin 2.3 H (0.0-1.0) mg/dL AST 39 H (5-37) U/L ALT 35 (0-40) U/L Alkaline Phosphatase 145 H (39-117) U/L Total Protein 7.9 (6.5-8.0) g/dL Albumin 3.2 L (3.5-5.0) g/dL Influenza Type A (PCR) NEGATIVE (Negative) Influenza Type B (PCR) NEGATIVE (Negative) RSV RNA Qual (PCR) NEGATIVE (Negative) SARS-CoV-2 RNA (RT-PCR) NEGATIVE (Negative) Independent Interpretation I performed an independent interpretation of an: EKG Interpretation: Normal sinus rhythm with premature ventricular complexes heart rate 86 beats per minute occasional PVC no acute ST-T changes Discharge Plan Discharge Clinical Impression: Chronic pain, Bronchitis Patient Disposition: Home, Self-Care Instructions: Chronic Pain (ED), Chronic Bronchitis (DC) Additional Instructions: Continue treatment and pain management as advised by your oncologist See oncologist tomorrow as scheduled for therapy Prescriptions: No Action omeprazole 40 mg capsule,delayed release(DR/EC) 40 mg PO DAILY@0630 10RF cholestyramine (with sugar) [Questran] 4 gram powder in packet 1 ea PO BID Qty: 60 1RF (DME) Natura Drainable Pouch 1 / (12 ) Misc Qty: 10 6RF Rx Instructions: As Directed ondansetron HCl 8 mg tablet 8 mg PO Q6-8H PRN (Reason: Nausea And Vomiting) Qty: 60 0RF ferrous sulfate [iron] 325 mg (65 mg iron) Tablet 325 mg PO BID Qty: 60 2RF oxycodone 5 mg Tablet 5 mg PO Q8H PRN (Reason: Pain) Qty: 60 0RF Rx Instructions: Partial Fill upon patient request. doxycycline hyclate 100 mg Tablet 100 mg PO BID Qty: 20 0RF Magic Mouthwash Diphen/Lido/Antacid 1:1:1 240 mL Suspension 10 ml PO TID Qty: 240 0RF Rx Instructions: Lidocaine Viscous 2 % 80mL; diphenhydramine 12.5 mg/5 mL 80mL; aluminum-mag hydrox-simeth [id number]/5mL 80mL fentanyl 75 mcg/hr Patch 72 Hour 1 patch TRANSDERMAL Q72H Qty: 10 0RF Rx Instructions: Partial Fill upon patient request. acetaminophen 650 mg tablet extended release 650 mg PO Q6H PRN (Reason: Pain) quetiapine [Seroquel] 25 mg tablet 25 mg PO BEDTIME Qty: 30 0RF lorazepam [Ativan] 1 mg tablet 1 mg PO TID PRN (Reason: anxiety) Qty: 20 0RF Rx Instructions: Patient may request partial fill loperamide [Imodium A-D] 2 mg Tablet 4 mg PO DAILY PRN (Reason: Loose Stool) Print Language: Korean
[2024-05-14 01:02] VITALS: BP 108/61; PULSE 79; RESP 16; TEMP 36.8; O2SAT 97
[2024-05-14 01:10] VITALS: BP 108/61; PULSE 79; RESP 16; TEMP 36.8; O2SAT 97
[2024-05-14 11:50] LABS: Neutrophils Absolute Auto 4.9 x10*3/uL (2.0-8.3)
== END 2024-05-14 01:10 | disposition home or self-care (01) ==
PROVIDERS: Internal Medicine; Emergency Provider Internal Medicine; PCP Internal Medicine
DX: G89.29 Other chronic pain (principal); J40 Bronchitis, not specified as acute or chronic; Z03.818 Encounter for observation for suspected exposure to other biological agents ruled out; R05.9 Cough, unspecified; C18.9 Malignant neoplasm of colon, unspecified; Z79.899 Other long term (current) drug therapy
CPT/HCPCS: 0241U; 36415; 71045; 80053; 82378; 85027; 93005; 99283

== ENCOUNTER 2024-07-29 13:20 | Outpatient (RCR) | payer MEDICARE, OTHER, MEDICAID, SELFPAY ==
[2020-05-19 10:37] VITALS: BP 119/58; PULSE 71; RESP 18; TEMP 36.3; O2SAT 92; BMI 23.0
[2020-05-19 11:03] LABS: MANUAL DIFF FLAG NO
[2020-05-19 11:05] LABS: Basophils Percent Auto 0.3 % (0-2); Eosinophils Absolute Auto 0.2 X10*3/uL (0.0-0.4); Eosinophils Percent Auto 3.6 % (0-4); Hematocrit 37.5 % (42-52); Hemoglobin 12.8 g/dl (14.0-18.0); Imm Gran Abs Auto 0.01 X10*3/uL (0.00-0.03); Imm Gran Pct Auto 0.2 % (0.0-0.4); Lymphocytes Absolute Auto 1.3 X10*3/uL (1.2-4.9); Lymphocytes Percent Auto 20.5 % (20-40); Mean Corpuscular HGB Conc 34.1 g/dl (31.0-36.0); Mean Corpuscular Volume 108.4 fL (80-98); Mean Platelet Volume 11.2 fL (9.4-12.4); Monocytes Absolute Auto 0.6 X10*3/uL (0.1-1.2); Monocytes Percent Auto 10.5 % (2-11); Neutrophils Percent Auto 64.9 % (45-73); Platelet Count 154 X10*3/uL (160-400); Red Blood Count 3.46 X10*6/uL (4.60-5.80); Red Cell Distribution Width 18.3 % (11.0-16.0); White Blood Count 6.1 X10*3/uL (4.8-10.8)
[2020-05-19 11:36] LABS: Alanine Aminotransferase 27 U/L (0-40); Alkaline Phosphatase 82 U/L (39-117); Anion Gap 11 (12-20); Aspartate Amino Transferase 45 U/L (5-37); Bilirubin Total 2.4 mg/dL (0.0-1.0); Blood Urea Nitrogen 11 mg/dL (9-16); Calcium 8.9 mg/dL (8.4-10.2); Carbon Dioxide 23 mmol/L (22-29); Chloride 105 mmol/L (96-108); Creatinine Clr Calc Pharmacy 103.9; Estimated Glomerular Filt Rate > 60; Glucose Random 95 mg/dL (60-115); Potassium 4.1 mmol/l (3.3-5.1); Sodium 135 mmol/L (135-145); Total Protein 6.6 g/dL (6.5-8.0)
[2020-05-19 11:55] LABS: Glucose Urine UA NEG (NEG); Leukocyte Esterase Urine NEG (NEG); Nitrite Urine NEG (NEG); Specific Gravity - Urine 1.015 (1.005-1.025); Urine Blood NEG (NEG); Urine Ketones NEG (NEG); Urine Protein NEG (NEG-TRACE)
[2020-05-19 11:59] LABS: Appearance Urine CLEAR; Color Urine YELLOW
[2020-05-19 12:04] LABS: Creatinine Urine 117.39 mg/dL
[2020-05-19] MEDS: SODIUM CHLORIDE 0.9% IV (12:43)
[2020-05-19] MEDS: BEVACIZUMAB IV (12:43)
--- NOTE | 2020-05-19 13:07 | MHC.HEMONC ---
Addendum entered by Simona Alanis RN 05/19/20 13:22: Follow up and chemotherapy in 3 weeks. Original Note: Patient here for Avastin today. Labs drawn, reviewed by MD. Tolerated infusion well. Scheduled for treatment in 2 weeks.
[2020-05-19] MEDS: Heparin Sodium,Porcine Flush 500 UNIT/5 ML SYRINGE IVFLUSH (13:26)
--- NOTE | 2020-05-19 13:54 | MHC.HEMONCSW ---
PT CONTINUES CHEMOTHERAPY EVERY 2 WEEKS. REMAINS INDEPENDENT. REPORTS EXPERIENCING BAD DAYS BUT MORE GOOD ONES. SLEEPY TODAY SO DID NOT MEET AT LENGTH. DENIES STRESSORS. EDUCATION AND SUPPORT WILL CONTINUE TO BE PROVIDED.
--- NOTE | 2020-06-09 09:37 | PM.HEMONCPN ---
Medical Summary - Medical Summary Chief complaint: Follow-up and scheduled treatment Medical Summary: Metastatic colon cancer diagnosed in October 2018. Presented with abdominal pain, 30 pound weight loss and severe pain. He had abnormal colonoscopy in 2009. He was told he needed a repeat colonoscopy in 5 years but he did not go for testing. CT abdomen/pelvis with IV contrast shows multiple areas of wall thickening in the sigmoid colon as well as thickening and enhancement of cecum, terminal ileum. Long segment of wall thickening of the distal transverse colon and left colon. Enlarged mesenteric and retroperitoneal lymph nodes, multiple liver metastasis and lung metastasis, all of these worrisome for metastatic colorectal malignancy. 11/01/18-Core biopsy of the right liver mass, moderately differentiated adenocarcinoma consistent with colorectal primary. KRAS mutation not detected BRAF mutation not detected. NRAS negative, MSI proficient or MSI stable. He developed bowel obstruction, palliative bypass ileostomy has been performed in November 2018. He started on mFOLFOX/Avastin regimen from 11/27/2018. His last treatment cycle 13 was on 05/14/2019. 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 Repeat CT abdomen/pelvis on 09/18/2019 showed further decrease in size of liver metastasis. Started maintenance treatment with Xeloda and bevacizumab in October 2019. Interval History Interval history: Patient is here for scheduled follow-up and treatment. He is doing quite well but does report arthralgias when he is a week in to Xeloda. He has shoulder pain and stiffness of his fingers and toes. He is taking oxycodone but wants to cut back. He also reports a cracked tooth, he is going to schedule an appointment with the dentist in the following weeks. He denies any fever, chills, cough, shortness of breath, diarrhea or constipation. He denies any significant nausea. He does have dryness of the skin of his hands and feet, no open sores. No mouth sores. Review of Systems - Constitutional Reports as per HPI, Reports no additional constitutional complaints - ENT Reports no additional ear, nose, mouth, and throat complaints - Cardiovascular Reports no additional cardiovascular complaints - Respiratory Reports no additional respiratory complaints - Gastrointestinal Reports no additional gastrointestinal complaints [facility] Medical History: Medical History (Last Updated 05/19/20 @ 16:24 by Simona Alanis RN) Tubular adenoma Family History: Family History (Last Updated 05/19/20 @ 16:28 by Simona Alanis RN) Son Cystic fibrosis Brother Esophageal cancer Maternal Aunt Lung cancer Surgical History: Surgical History (Last Updated 05/19/20 @ 16:24 by Simona Alanis RN) H/O knee surgery Smoking status: Former smoker Oncology 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 Performance Status ECOG Performance Status: 1 Home Medications and Allergies Current Medications: Current Medications Generic Name Dose Route Start Last Admin Trade Name Freq PRN Reason Stop Dose Admin Heparin Sodium (Porcine) 500 unit 06/09/20 00:00 Heparin Sodium,Porcine Flush 500 Unit/5 Ml Syringe IVFLUSH 06/09/20 23:59 ONCE PINEDA Ondansetron HCl 8 mg 06/09/20 00:00 Ondansetron Odt 8 Mg Tab.Rapdis PO 06/09/20 23:59 ONCE PINEDA Home Medications Medication Instructions Recorded Confirmed Type capecitabine [Xeloda] 1,500 mg PO BID 05/19/20 05/19/20 History cholestyramine (with sugar) 1 ea PO BID 05/19/20 05/19/20 History [Questran] loperamide [Imodium] 2 mg PO QID PRN 05/19/20 05/19/20 History omeprazole 40 mg PO DAILY 05/19/20 05/19/20 History Allergies Allergy/AdvReac Type Severity Reaction Status Date / Time prednisone [PREDNISONE] AdvReac Intermediate Psychosis Verified 05/19/20 11:43 Exam Vital signs: Vital Signs Temp 97.4 F 05/19/20 10:37 Pulse 71 05/19/20 10:37 Resp 18 05/19/20 10:37 BP 119/58 L 05/19/20 10:37 Pulse Ox 92 05/19/20 10:37 Intake & Output 06/08/20 06/09/20 06/09/20 18:59 06:59 18:59 Other: Weight 74.843 kg Weight 74.843 kg Body Mass Index 23.0 - Constitutional Present: no acute distress - Routine HEENT Exam Head: Present: normal inspection Eye: Present: EOMI - Routine Neck Exam Present: full ROM. Absent: lymphadenopathy - Routine Respiratory Exam Present: CTAB - Routine Cardiovascular Exam Cardiovascular: Present: RRR, S1, S2 - Routine Abdominal Exam Present: normal bowel sounds, soft. Absent: mass, organomegaly - Routine Extremities Exam Present: full ROM. Absent: calf tenderness, pedal edema - Routine Skin Exam Present: intact. Absent: cyanosis, erythema - Routine Neurological Exam Present: alert, oriented X3 Data - Labs CBC & Chem 7: 06/09/20 09:40 05/19/20 10:55 Progress Note: A/P (1) Colon cancer metastasized to liver Status: Acute Assessment and plan: 1. This is a 59-year-old gentleman, with metastatic colon carcinoma, with liver and lung metastases. Biopsy of the liver lesion, Moderately differentiated adenocarcinoma. KRAS and BRAF negative. NRAS negative, MSI proficient or MSI stable. HER2 and panTRK negative. He developed bowel obstruction, palliative bypass ileostomy has been performed in November 2018. He started on mFOLFOX/Avastin regimen from 11/27/2018. His last treatment cycle 13 was on 05/14/2019. Now on maintenance Xeloda 1500 mg p.o. b.i.d. 2 weeks on/1 week off, along with bevacizumab Q 3 weeks starting 10/22/2019. He is tolerating treatment well. CEA level below 2. 2. 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 He has been tapered off prednisone and CellCept. He is also off the oxygen. 3. Chronic arthralgias. He is on MSContin 30 mg b.i.d. he is on oxycodone 5 mg for breakthrough pain 2 to 3 times a day. He reports increased joint aches when he is on Xeloda for 2 weeks. 4. Intermittent elevation of bilirubin, indirect bilirubinemia, probable Gilbert's syndrome. 5. Dental problems. I have asked him to let me know when he is going to be scheduled for tooth extractions. Bevacizumab will be avoided during that time. Follow-up in 6 weeks. - Time Spent With Patient Total time spent is greater than 50% in coordination of care (as documented) at patient's floor/unit and/or counseling patient: 15 - 24 minutes
[2020-06-09 09:53] VITALS: BP 140/63; PULSE 88; RESP 18; TEMP 37.1; O2SAT 94
[2020-06-09 10:00] LABS: MANUAL DIFF FLAG NO
[2020-06-09 10:04] LABS: Basophils Percent Auto 0.5 % (0-2); Eosinophils Absolute Auto 0.3 X10*3/uL (0.0-0.4); Eosinophils Percent Auto 4.3 % (0-4); Hematocrit 38.8 % (42-52); Imm Gran Abs Auto 0.02 X10*3/uL (0.00-0.03); Imm Gran Pct Auto 0.3 % (0.0-0.4); Lymphocytes Absolute Auto 1.3 X10*3/uL (1.2-4.9); Lymphocytes Percent Auto 23.2 % (20-40); Mean Corpuscular HGB Conc 33.5 g/dl (31.0-36.0); Mean Corpuscular Hemoglobin 36.4 pg (27.0-33.0); Mean Corpuscular Volume 108.7 fL (80-98); Mean Platelet Volume 11.2 fL (9.4-12.4); Monocytes Absolute Auto 0.7 X10*3/uL (0.1-1.2); Monocytes Percent Auto 11.2 % (2-11); Neutrophils Absolute Auto 3.5 X10*3/uL (2.0-8.3); Neutrophils Percent Auto 60.5 % (45-73); Platelet Count 141 X10*3/uL (160-400); Red Blood Count 3.57 X10*6/uL (4.60-5.80); Red Cell Distribution Width 17.9 % (11.0-16.0); White Blood Count 5.8 X10*3/uL (4.8-10.8)
[2020-06-09 10:09] LABS: Glucose Urine UA NEG (NEG); Leukocyte Esterase Urine NEG (NEG); Nitrite Urine NEG (NEG); PH 5.5 (5.0-8.0); Specific Gravity - Urine 1.025 (1.005-1.025); Urine Blood NEG (NEG); Urine Ketones NEG (NEG); Urine Protein NEG (NEG-TRACE)
[2020-06-09 10:10] LABS: Appearance Urine HAZY; Color Urine YELLOW
[2020-06-09 10:34] LABS: Creatinine Urine 197.51 mg/dL
[2020-06-09 10:35] LABS: Alanine Aminotransferase 24 U/L (0-40); Albumin Level 4.1 g/dL (3.5-5.0); Alkaline Phosphatase 81 U/L (39-117); Anion Gap 13 (12-20); Aspartate Amino Transferase 43 U/L (5-37); Bilirubin Total 2.7 mg/dL (0.0-1.0); Blood Urea Nitrogen 9 mg/dL (9-16); Calcium 8.7 mg/dL (8.4-10.2); Carbon Dioxide 22 mmol/L (22-29); Chloride 101 mmol/L (96-108); Creatinine Clr Calc Pharmacy 100.1; Estimated Glomerular Filt Rate > 60; Glucose Random 130 mg/dL (60-115); Potassium 3.9 mmol/l (3.3-5.1); Sodium 132 mmol/L (135-145); Total Protein 6.7 g/dL (6.5-8.0)
[2020-06-09] MEDS: Acetaminophen 325 MG TABLET 650 MG PO (10:55)
[2020-06-09] MEDS: Heparin Sodium,Porcine Flush 500 UNIT/5 ML SYRINGE IVFLUSH (10:56)
[2020-06-09] MEDS: SODIUM CHLORIDE 0.9% IV (11:49)
[2020-06-09] MEDS: BEVACIZUMAB IV (11:49)
--- NOTE | 2020-06-09 13:14 | MHC.HEMONCSW ---
pt here for treatment. denies stressors or c/o of anything. reports coping well and his family is also. education and support provided. he is aware of my availability.
[2020-07-05 09:50] VITALS: BMI 23.5
[2020-07-05 09:51] VITALS: BP 155/72; PULSE 90; RESP 18; TEMP 36.9; O2SAT 92
[2020-07-05 10:16] LABS: MANUAL DIFF FLAG NO
[2020-07-05 10:23] LABS: Basophils Percent Auto 0.5 % (0-2); Eosinophils Absolute Auto 0.2 X10*3/uL (0.0-0.4); Eosinophils Percent Auto 3.7 % (0-4); Hematocrit 34.8 % (42-52); Hemoglobin 11.9 g/dl (14.0-18.0); Imm Gran Abs Auto 0.05 X10*3/uL (0.00-0.03); Imm Gran Pct Auto 0.8 % (0.0-0.4); Lymphocytes Absolute Auto 1.7 X10*3/uL (1.2-4.9); Lymphocytes Percent Auto 25.4 % (20-40); Mean Corpuscular HGB Conc 34.2 g/dl (31.0-36.0); Mean Corpuscular Hemoglobin 36.7 pg (27.0-33.0); Mean Corpuscular Volume 107.4 fL (80-98); Mean Platelet Volume 11.4 fL (9.4-12.4); Monocytes Absolute Auto 0.8 X10*3/uL (0.1-1.2); Monocytes Percent Auto 12.1 % (2-11); Neutrophils Absolute Auto 3.8 X10*3/uL (2.0-8.3); Neutrophils Percent Auto 57.5 % (45-73); Platelet Count 112 X10*3/uL (160-400); Red Blood Count 3.24 X10*6/uL (4.60-5.80); Red Cell Distribution Width 17.5 % (11.0-16.0); White Blood Count 6.5 X10*3/uL (4.8-10.8)
[2020-07-05 10:36] LABS: Glucose Urine UA NEG (NEG); Leukocyte Esterase Urine NEG (NEG); Nitrite Urine NEG (NEG); PH 5.5 (5.0-8.0); Specific Gravity - Urine <= 1.005 (1.005-1.025); Urine Blood NEG (NEG); Urine Ketones NEG (NEG); Urine Protein NEG (NEG-TRACE)
[2020-07-05 10:38] LABS: Appearance Urine CLEAR; Color Urine YELLOW
[2020-07-05 10:54] LABS: Alanine Aminotransferase 22 U/L (0-40); Albumin Level 3.8 g/dL (3.5-5.0); Alkaline Phosphatase 77 U/L (39-117); Anion Gap 14 (12-20); Aspartate Amino Transferase 37 U/L (5-37); Bilirubin Total 2.2 mg/dL (0.0-1.0); Blood Urea Nitrogen 10 mg/dL (9-16); Calcium 8.7 mg/dL (8.4-10.2); Carbon Dioxide 20 mmol/L (22-29); Chloride 104 mmol/L (96-108); Creatinine Clr Calc Pharmacy 103.2; Estimated Glomerular Filt Rate > 60; Glucose Random 104 mg/dL (60-115); Magnesium 1.9 mg/dL (1.6-2.6); Potassium 3.8 mmol/l (3.3-5.1); Sodium 134 mmol/L (135-145); Total Protein 6.4 g/dL (6.5-8.0)
--- NOTE | 2020-07-05 11:28 | PM.HEMONCPN ---
Medical Summary - Medical Summary Chief complaint: Follow-up and scheduled treatment Medical Summary: Metastatic colon cancer diagnosed in October 2018. Presented with abdominal pain, 30 pound weight loss and severe pain. He had abnormal colonoscopy in 2009. He was told he needed a repeat colonoscopy in 5 years but he did not go for testing. CT abdomen/pelvis with IV contrast shows multiple areas of wall thickening in the sigmoid colon as well as thickening and enhancement of cecum, terminal ileum. Long segment of wall thickening of the distal transverse colon and left colon. Enlarged mesenteric and retroperitoneal lymph nodes, multiple liver metastasis and lung metastasis, all of these worrisome for metastatic colorectal malignancy. 11/01/18-Core biopsy of the right liver mass, moderately differentiated adenocarcinoma consistent with colorectal primary. KRAS mutation not detected BRAF mutation not detected. NRAS negative, MSI proficient or MSI stable. He developed bowel obstruction, palliative bypass ileostomy has been performed in November 2018. He started on mFOLFOX/Avastin regimen from 11/27/2018. His last treatment cycle 13 was on 05/14/2019. 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 Repeat CT abdomen/pelvis on 09/18/2019 showed further decrease in size of liver metastasis. Started maintenance treatment with Xeloda and bevacizumab in October 2019. Interval History Interval history: Patient is here for scheduled follow-up and treatment. He is doing quite well but does report arthralgias when he is a week in to Xeloda. He does have dryness of the skin of his hands and feet, no open sores. No mouth sores. He is doing lot better in terms of arthralgias today because his treatment was postponed from last week. He would prefer to be on every 4 week schedule rather than 3 week schedule. He denies any nausea or emesis. No loss of appetite or weight loss. No fever, chills, cough or shortness of breath. Review of Systems - Constitutional Reports no additional constitutional complaints - Cardiovascular Reports no additional cardiovascular complaints [facility] Medical History: Medical History (Last Updated 05/19/20 @ 16:24 by Simona Alanis RN) Tubular adenoma Family History: Family History (Last Updated 05/19/20 @ 16:28 by Simona Alanis RN) Son Cystic fibrosis Brother Esophageal cancer Maternal Aunt Lung cancer Surgical History: Surgical History (Last Updated 05/19/20 @ 16:24 by Simona Alanis RN) H/O knee surgery Smoking status: Former smoker Oncology 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 Performance Status ECOG Performance Status: 1 Home Medications and Allergies Current Medications: Current Medications Generic Name Dose Route Start Last Admin Trade Name Freq PRN Reason Stop Dose Admin Heparin Sodium (Porcine) 500 unit 07/05/20 00:00 Heparin Sodium,Porcine Flush 500 Unit/5 Ml Syringe IVFLUSH 07/05/20 23:59 ONCE PINEDA Bevacizumab 400 mg/ 100 mls @ 66.667 mls/hr 07/05/20 00:00 Bevacizumab 150 mg/ Sodium IV 07/05/20 23:59 Chloride ONCE PINEDA Ondansetron HCl 8 mg 07/05/20 00:00 07/05/20 11:20 Ondansetron Odt 8 Mg Tab.Rapdis TRANSLINGU 07/05/20 23:59 8 mg ONCE PINEDA Administration Home Medications Medication Instructions Recorded Confirmed Type capecitabine [Xeloda] 1,500 mg PO BID 05/19/20 05/19/20 History cholestyramine (with sugar) 1 ea PO BID 05/19/20 05/19/20 History [Questran] loperamide [Imodium] 2 mg PO QID PRN 05/19/20 05/19/20 History omeprazole 40 mg PO DAILY 05/19/20 05/19/20 History Allergies Allergy/AdvReac Type Severity Reaction Status Date / Time prednisone [PREDNISONE] AdvReac Intermediate Psychosis Verified 05/19/20 11:43 Exam Vital signs: Vital Signs Temp 98.5 F 07/05/20 09:51 Pulse 90 07/05/20 09:51 Resp 18 07/05/20 09:51 BP 155/72 H 07/05/20 09:51 Pulse Ox 92 07/05/20 09:51 Intake & Output 07/04/20 07/05/20 07/05/20 18:59 06:59 18:59 Other: Weight 76.5 kg Weight 76.5 kg Body Mass Index 23.5 - Constitutional Present: no acute distress - Routine HEENT Exam Head: Present: normal inspection - Routine Neck Exam Present: full ROM. Absent: lymphadenopathy - Routine Respiratory Exam Present: CTAB - Routine Cardiovascular Exam Cardiovascular: Present: RRR, S1, S2 - Routine Abdominal Exam Present: normal bowel sounds, soft. Absent: mass, organomegaly - Routine Extremities Exam Present: full ROM. Absent: calf tenderness, pedal edema - Routine Skin Exam Present: intact. Absent: cyanosis, erythema - Routine Neurological Exam Present: alert, oriented X3 Data - Labs CBC & Chem 7: 07/05/20 10:00 07/05/20 10:00 Labs: 05/19/20 00:00 Bevacizumab [Avastin] 400 mg Bevacizumab [Avastin] 150 mg 0.9 % Sodium Chloride [Ns] 78 ml IV ONCE Heparin Sodium,Porcine Flush 500 unit IVFLUSH ONCE ondansetron ODT [Zofran ODT] 8 mg TRANSLINGU ONCE 05/19/20 10:55 Complete Blood Count Auto Diff Routine Comprehensive Met. Panel Routine Magnesium Routine 05/19/20 11:00 Creatinine Urine Routine UA and rflx microscopic Routine 06/09/20 00:00 Bevacizumab [Avastin] 400 mg Bevacizumab [Avastin] 150 mg 0.9 % Sodium Chloride [Ns] 78 ml IV ONCE Heparin Sodium,Porcine Flush 500 unit IVFLUSH ONCE ondansetron ODT [Zofran ODT] 8 mg PO ONCE 06/09/20 09:40 Complete Blood Count Auto Diff Routine Comprehensive Met. Panel Routine Creatinine Urine Routine Magnesium Routine UA and rflx microscopic Routine 06/09/20 09:59 Acetaminophen [Tylenol] 650 mg PO ONCE ONE 07/05/20 10:00 Complete Blood Count Auto Diff Routine Comprehensive Met. Panel Routine Creatinine Urine Routine Magnesium Routine UA and rflx microscopic Routine Laboratory Last Values WBC 6.5 X10*3/uL (4.8-10.8) 07/05/20 10:00 RBC 3.24 X10*6/uL (4.60-5.80) L 07/05/20 10:00 Hgb 11.9 g/dl (14.0-18.0) L 07/05/20 10:00 Hct 34.8 % (42-52) L 07/05/20 10:00 MCV 107.4 fL (80-98) H 07/05/20 10:00 MCH 36.7 pg (27.0-33.0) H 07/05/20 10:00 MCHC 34.2 g/dl (31.0-36.0) 07/05/20 10:00 RDW 17.5 % (11.0-16.0) H 07/05/20 10:00 Plt Count 112 X10*3/uL (160-400) L 07/05/20 10:00 MPV 11.4 fL (9.4-12.4) 07/05/20 10:00 Immature Gran % (Auto) 0.8 % (0.0-0.4) H 07/05/20 10:00 Neut % (Auto) 57.5 % (45-73) 07/05/20 10:00 Lymph % (Auto) 25.4 % (20-40) 07/05/20 10:00 [place] % (Auto) 12.1 % (2-11) H 07/05/20 10:00 Eos % (Auto) 3.7 % (0-4) 07/05/20 10:00 Baso % (Auto) 0.5 % (0-2) 07/05/20 10:00 Neut # (Auto) 4.0 X10*3/uL (2.0-8.3) 05/19/20 10:55 Lymph # (Auto) 1.7 X10*3/uL (1.2-4.9) 07/05/20 10:00 [place] # (Auto) 0.8 X10*3/uL (0.1-1.2) 07/05/20 10:00 Eos # (Auto) 0.2 X10*3/uL (0.0-0.4) 07/05/20 10:00 Baso # (Auto) 0.0 X10*3/uL (0.0-0.2) 07/05/20 10:00 Abs Immat Gran (auto) 0.05 X10*3/uL (0.00-0.03) H 07/05/20 10:00 Absolute Neuts (auto) 3.8 X10*3/uL (2.0-8.3) 07/05/20 10:00 Absolute Nucleated RBC 0.000 X10*3/uL (0.0-0.012) 07/05/20 10:00 Nucleated RBC % (auto) 0.0 /100WBC (0.0-0.2) 07/05/20 10:00 Sodium 134 mmol/L (135-145) L 07/05/20 10:00 Potassium 3.8 mmol/l (3.3-5.1) 07/05/20 10:00 Chloride 104 mmol/L (96-108) 07/05/20 10:00 Carbon Dioxide 20 mmol/L (22-29) L 07/05/20 10:00 Anion Gap 14 (12-20) 07/05/20 10:00 BUN 10 mg/dL (9-16) 07/05/20 10:00 Creatinine 0.79 mg/dL (0.5-1.4) 07/05/20 10:00 Estim Creat Clear Calc 103.2 07/05/20 10:00 Estimated GFR > 60 07/05/20 10:00 Random Glucose 104 mg/dL (60-115) 07/05/20 10:00 Calcium 8.7 mg/dL (8.4-10.2) 07/05/20 10:00 Magnesium 1.9 mg/dL (1.6-2.6) 07/05/20 10:00 Total Bilirubin 2.2 mg/dL (0.0-1.0) H 07/05/20 10:00 AST 37 U/L (5-37) 07/05/20 10:00 ALT 22 U/L (0-40) 07/05/20 10:00 Alkaline Phosphatase 77 U/L (39-117) 07/05/20 10:00 Total Protein 6.4 g/dL (6.5-8.0) L 07/05/20 10:00 Albumin 3.8 g/dL (3.5-5.0) 07/05/20 10:00 Urine Color YELLOW 07/05/20 10:00 Urine Appearance CLEAR 07/05/20 10:00 Urine pH 5.5 (5.0-8.0) 07/05/20 10:00 Ur Specific [place] <= 1.005 (1.005-1.025) 07/05/20 10:00 Urine Protein NEG MG/DL (NEG-TRACE) 07/05/20 10:00 Urine Glucose (UA) NEG MG/DL (NEG) 07/05/20 10:00 Urine Ketones NEG MG/DL (NEG) 07/05/20 10:00 Urine Blood NEG (NEG) 07/05/20 10:00 Urine Nitrite NEG (NEG) 07/05/20 10:00 Ur Leukocyte Esterase NEG (NEG) 07/05/20 10:00 Urine Creatinine 33.10 mg/dL 07/05/20 10:00 Progress Note: A/P (1) Colon cancer metastasized to liver Status: Chronic Assessment and plan: 1. This is a 59-year-old gentleman, with metastatic colon carcinoma, with liver and lung metastases. Biopsy of the liver lesion, Moderately differentiated adenocarcinoma. KRAS and BRAF negative. NRAS negative, MSI proficient or MSI stable. HER2 and panTRK negative. He developed bowel obstruction, palliative bypass ileostomy has been performed in November 2018. He started on mFOLFOX/Avastin regimen from 11/27/2018. His last treatment cycle 13 was on 05/14/2019. Now on maintenance Xeloda 1500 mg p.o. b.i.d. 2 weeks on/1 week off, along with bevacizumab Q 3 weeks starting 10/22/2019. He is tolerating treatment well. CEA level below 2. 2. 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 He has been tapered off prednisone and CellCept. He is also off the oxygen. 3. Chronic arthralgias. He is on MSContin 30 mg b.i.d. he is on oxycodone 5 mg for breakthrough pain 2 to 3 times a day. He reports increased joint aches when he is on Xeloda for 2 weeks. 4. Intermittent elevation of bilirubin, indirect bilirubinemia, probable Gilbert's syndrome. 5. Dental problems. I have asked him to let me know when he is going to be scheduled for tooth extractions. Bevacizumab will be avoided during that time. Next treatment will be scheduled in 4 weeks. - Time Spent With Patient Total time spent is greater than 50% in coordination of care (as documented) at patient's floor/unit and/or counseling patient: 15 - 24 minutes
[2020-07-05] MEDS: Acetaminophen 325 MG TABLET 650 MG PO (12:11)
[2020-07-05] MEDS: BEVACIZUMAB IV (12:33)
[2020-07-05] MEDS: SODIUM CHLORIDE 0.9% IV (12:33)
--- NOTE | 2020-07-05 12:49 | MHC.HEMONC ---
Exam with Dr. Mckee. C13 DAY 1: AVASTIN well tolerated. No compliants at this time. VSS. Per Dr Mckee, treatment can be given [id number] versus 3 weeks. Patient aware and booked for 08/02/20.
[2020-07-05] MEDS: Heparin Sodium,Porcine Flush 500 UNIT/5 ML SYRINGE IVFLUSH (13:14)
[2020-08-02 10:16] VITALS: BP 116/59; PULSE 88; RESP 18; TEMP 36.4; O2SAT 92; BMI 23.2
[2020-08-02 10:42] LABS: MANUAL DIFF FLAG NO
[2020-08-02 10:50] LABS: Basophils Percent Auto 0.5 % (0-2); Eosinophils Absolute Auto 0.3 X10*3/uL (0.0-0.4); Eosinophils Percent Auto 3.2 % (0-4); Glucose Urine UA NEG (NEG); Hematocrit 40.6 % (42-52); Hemoglobin 13.8 g/dl (14.0-18.0); Imm Gran Abs Auto 0.03 X10*3/uL (0.00-0.03); Imm Gran Pct Auto 0.3 % (0.0-0.4); Leukocyte Esterase Urine NEG (NEG); Lymphocytes Absolute Auto 1.4 X10*3/uL (1.2-4.9); Lymphocytes Percent Auto 15.5 % (20-40); Mean Corpuscular Volume 108.8 fL (80-98); Mean Platelet Volume 11.5 fL (9.4-12.4); Monocytes Absolute Auto 0.8 X10*3/uL (0.1-1.2); Monocytes Percent Auto 9.6 % (2-11); Neutrophils Absolute Auto 6.2 X10*3/uL (2.0-8.3); Neutrophils Percent Auto 70.9 % (45-73); Nitrite Urine NEG (NEG); PH 5.5 (5.0-8.0); Platelet Count 137 X10*3/uL (160-400); Red Blood Count 3.73 X10*6/uL (4.60-5.80); Specific Gravity - Urine 1.025 (1.005-1.025); Urine Blood NEG (NEG); Urine Ketones NEG (NEG); Urine Protein NEG (NEG-TRACE); White Blood Count 8.8 X10*3/uL (4.8-10.8)
[2020-08-02 10:52] LABS: Appearance Urine CLEAR; Color Urine YELLOW
[2020-08-02 11:13] LABS: Alanine Aminotransferase 24 U/L (0-40); Albumin Level 4.2 g/dL (3.5-5.0); Alkaline Phosphatase 78 U/L (39-117); Anion Gap 14 (12-20); Aspartate Amino Transferase 39 U/L (5-37); Bilirubin Total 3.8 mg/dL (0.0-1.0); Blood Urea Nitrogen 11 mg/dL (9-16); Calcium 9.1 mg/dL (8.4-10.2); Carbon Dioxide 23 mmol/L (22-29); Chloride 103 mmol/L (96-108); Creatinine Clr Calc Pharmacy 101.9; Estimated Glomerular Filt Rate > 60; Glucose Random 93 mg/dL (60-115); Potassium 3.9 mmol/l (3.3-5.1); Sodium 136 mmol/L (135-145); Total Protein 7.2 g/dL (6.5-8.0)
[2020-08-02] MEDS: Heparin Sodium,Porcine Flush 500 UNIT/5 ML SYRINGE IVFLUSH (12:15)
[2020-08-02] MEDS: Acetaminophen 325 MG TABLET 650 MG PO (12:15)
[2020-08-02] MEDS: BEVACIZUMAB IV (12:25)
[2020-08-02] MEDS: SODIUM CHLORIDE 0.9% IV (12:25)
[2020-08-02 16:31] LABS: Creatinine Urine 217.97 mg/dL
[2020-08-30 09:02] VITALS: BP 119/59; PULSE 70; RESP 20; TEMP 37.2; O2SAT 92; BMI 23.8
[2020-08-30 09:26] LABS: MANUAL DIFF FLAG NO
[2020-08-30 09:29] LABS: Basophils Percent Auto 0.4 % (0-2); Eosinophils Absolute Auto 0.2 X10*3/uL (0.0-0.4); Eosinophils Percent Auto 3.7 % (0-4); Hematocrit 36.5 % (42-52); Hemoglobin 12.3 g/dl (14.0-18.0); Imm Gran Abs Auto 0.02 X10*3/uL (0.00-0.03); Imm Gran Pct Auto 0.4 % (0.0-0.4); Mean Corpuscular HGB Conc 33.7 g/dl (31.0-36.0); Mean Corpuscular Hemoglobin 36.7 pg (27.0-33.0); Mean Platelet Volume 11.5 fL (9.4-12.4); Monocytes Absolute Auto 0.7 X10*3/uL (0.1-1.2); Monocytes Percent Auto 11.8 % (2-11); Neutrophils Absolute Auto 3.7 X10*3/uL (2.0-8.3); Neutrophils Percent Auto 65.7 % (45-73); Platelet Count 106 X10*3/uL (160-400); Red Blood Count 3.35 X10*6/uL (4.60-5.80); Red Cell Distribution Width 17.3 % (11.0-16.0); White Blood Count 5.7 X10*3/uL (4.8-10.8)
[2020-08-30 09:30] LABS: Glucose Urine UA NEG (NEG); Leukocyte Esterase Urine NEG (NEG); Nitrite Urine NEG (NEG); PH 5.5 (5.0-8.0); Specific Gravity - Urine 1.025 (1.005-1.025); Urine Blood NEG (NEG); Urine Ketones NEG (NEG); Urine Protein NEG (NEG-TRACE)
[2020-08-30 09:32] LABS: Appearance Urine CLEAR; Color Urine YELLOW
[2020-08-30 10:03] LABS: Alanine Aminotransferase 25 U/L (0-40); Alkaline Phosphatase 76 U/L (39-117); Anion Gap 13 (12-20); Aspartate Amino Transferase 38 U/L (5-37); Bilirubin Total 2.6 mg/dL (0.0-1.0); Blood Urea Nitrogen 12 mg/dL (9-16); Calcium 8.8 mg/dL (8.4-10.2); Carbon Dioxide 23 mmol/L (22-29); Chloride 104 mmol/L (96-108); Creatinine Clr Calc Pharmacy 103.2; Estimated Glomerular Filt Rate > 60; Glucose Random 95 mg/dL (60-115); Magnesium 2.1 mg/dL (1.6-2.6); Potassium 4.1 mmol/l (3.3-5.1); Sodium 136 mmol/L (135-145); Total Protein 6.6 g/dL (6.5-8.0)
[2020-08-30] MEDS: SODIUM CHLORIDE 0.9% IV (11:19)
[2020-08-30] MEDS: BEVACIZUMAB IV (11:19)
--- NOTE | 2020-08-30 11:28 | PM.HEMONCPN ---
Medical Summary - Medical Summary Date of Service: 08/30/20 Chief complaint: Follow-up Medical Summary: Metastatic colon cancer diagnosed in October 2018. Presented with abdominal pain, 30 pound weight loss and severe pain. He had abnormal colonoscopy in 2009. He was told he needed a repeat colonoscopy in 5 years but he did not go for testing. CT abdomen/pelvis with IV contrast shows multiple areas of wall thickening in the sigmoid colon as well as thickening and enhancement of cecum, terminal ileum. Long segment of wall thickening of the distal transverse colon and left colon. Enlarged mesenteric and retroperitoneal lymph nodes, multiple liver metastasis and lung metastasis, all of these worrisome for metastatic colorectal malignancy. 11/01/18-Core biopsy of the right liver mass, moderately differentiated adenocarcinoma consistent with colorectal primary. KRAS mutation not detected BRAF mutation not detected. NRAS negative, MSI proficient or MSI stable. He developed bowel obstruction, palliative bypass ileostomy has been performed in November 2018. He started on mFOLFOX/Avastin regimen from 11/27/2018. His last treatment cycle 13 was on 05/14/2019. 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 Repeat CT abdomen/pelvis on 09/18/2019 showed further decrease in size of liver metastasis. Started maintenance treatment with Xeloda and bevacizumab in October 2019. Interval History Interval history: Patient is here for follow-up and scheduled treatment. He is doing well and has no new complaints today. He is requesting refill of his long-acting morphine. He denies any abdominal pain, nausea, diarrhea, fever or chills. No exertional chest pain or shortness of breath. Review of Systems - Constitutional Reports as per HPI, Reports no additional constitutional complaints [facility] Medical History: Medical History (Last Updated 08/10/20 @ 21:47 by Shravan Mcginnis MD) Chronic respiratory failure ILD (interstitial lung disease) Pulmonary fibrosis Tubular adenoma Family History: Family History (Last Updated 05/19/20 @ 16:28 by Simona Alanis RN) Son Cystic fibrosis Brother Esophageal cancer Maternal Aunt Lung cancer Surgical History: Surgical History (Last Updated 05/19/20 @ 16:24 by Simona Alanis RN) H/O knee surgery Smoking status: Former smoker Oncology 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 Performance Status ECOG Performance Status: 1 Home Medications and Allergies Current Medications: Current Medications Generic Name Dose Route Start Last Admin Trade Name Freq PRN Reason Stop Dose Admin Heparin Sodium (Porcine) 500 unit 08/30/20 00:00 Heparin Sodium,Porcine Flush 500 Unit/5 Ml Syringe IVFLUSH 08/30/20 23:59 ONCE PINEDA Bevacizumab 400 mg/ 100 mls @ 200 mls/hr 08/30/20 00:00 08/30/20 11:19 Bevacizumab 175 mg/ Sodium IV 08/30/20 23:59 200 mls/hr Chloride ONCE PINEDA Administration Ondansetron HCl 8 mg 08/30/20 00:00 08/30/20 11:05 Ondansetron Odt 8 Mg Tab.Rapdis TRANSLINGU 08/30/20 23:59 8 mg ONCE PINEDA Administration Home Medications Medication Instructions Recorded Confirmed Type capecitabine [Xeloda] 1,500 mg PO BID 05/19/20 08/10/20 History cholestyramine (with sugar) 1 ea PO BID 05/19/20 08/10/20 History [Questran] loperamide [Imodium] 2 mg PO QID PRN 05/19/20 08/10/20 History Allergies Allergy/AdvReac Type Severity Reaction Status Date / Time prednisone [PREDNISONE] AdvReac Intermediate Psychosis Verified 08/10/20 13:51 Exam Vital signs: Vital Signs Temp 98.9 F 08/30/20 09:02 Pulse 70 08/30/20 09:02 Resp 20 08/30/20 09:02 BP 119/59 L 08/30/20 09:02 Pulse Ox 92 08/30/20 09:02 Intake & Output 08/29/20 08/30/20 08/30/20 18:59 06:59 18:59 Other: Weight 77.4 kg Weight 77.4 kg Body Mass Index 23.8 - Constitutional Present: no acute distress - Routine HEENT Exam Head: Present: normal inspection - Routine Neck Exam Present: full ROM. Absent: lymphadenopathy - Routine Respiratory Exam Present: CTAB - Routine Cardiovascular Exam Cardiovascular: Present: RRR, S1, S2 - Routine Abdominal Exam Present: normal bowel sounds, soft. Absent: mass, organomegaly - Routine Extremities Exam Present: full ROM. Absent: calf tenderness, pedal edema - Routine Skin Exam Present: intact. Absent: cyanosis, erythema - Routine Neurological Exam Present: alert, oriented X3 Data - Labs CBC & Chem 7: 08/30/20 09:15 08/30/20 09:15 Labs: 05/19/20 00:00 Bevacizumab [Avastin] 400 mg Bevacizumab [Avastin] 150 mg 0.9 % Sodium Chloride [Ns] 78 ml IV ONCE Heparin Sodium,Porcine Flush 500 unit IVFLUSH ONCE ondansetron ODT [Zofran ODT] 8 mg TRANSLINGU ONCE 05/19/20 10:55 Complete Blood Count Auto Diff Routine Comprehensive Met. Panel Routine Magnesium Routine 05/19/20 11:00 Creatinine Urine Routine UA and rflx microscopic Routine 06/09/20 00:00 Bevacizumab [Avastin] 400 mg Bevacizumab [Avastin] 150 mg 0.9 % Sodium Chloride [Ns] 78 ml IV ONCE Heparin Sodium,Porcine Flush 500 unit IVFLUSH ONCE ondansetron ODT [Zofran ODT] 8 mg PO ONCE 06/09/20 09:40 Complete Blood Count Auto Diff Routine Comprehensive Met. Panel Routine Creatinine Urine Routine Magnesium Routine UA and rflx microscopic Routine 06/09/20 09:59 Acetaminophen [Tylenol] 650 mg PO ONCE ONE 07/05/20 00:00 Bevacizumab [Avastin] 400 mg Bevacizumab [Avastin] 150 mg 0.9 % Sodium Chloride [Ns] 78 ml IV ONCE Heparin Sodium,Porcine Flush 500 unit IVFLUSH ONCE ondansetron ODT [Zofran ODT] 8 mg TRANSLINGU ONCE 07/05/20 10:00 Carcinoembryonic Antigen Routine Complete Blood Count Auto Diff Routine Comprehensive Met. Panel Routine Creatinine Urine Routine Magnesium Routine UA and rflx microscopic Routine 07/05/20 11:38 Acetaminophen [Tylenol] 650 mg PO ONCE ONE 08/02/20 00:00 Bevacizumab [Avastin] 400 mg Bevacizumab [Avastin] 175 mg 0.9 % Sodium Chloride [Ns] 77 ml IV ONCE Heparin Sodium,Porcine Flush 500 unit IVFLUSH ONCE ondansetron ODT [Zofran ODT] 8 mg TRANSLINGU ONCE 08/02/20 10:20 CEA [Carcinoembryonic Antigen] Routine Complete Blood Count Auto Diff Routine Comprehensive Met. Panel Routine Creatinine Urine Routine Magnesium Routine UA and rflx microscopic Routine 08/02/20 11:37 Acetaminophen [Tylenol] 650 mg PO ONCE ONE 08/30/20 09:15 Complete Blood Count Auto Diff Routine Comprehensive Met. Panel Routine Magnesium Routine UA and rflx microscopic Routine Laboratory Last Values WBC 5.7 X10*3/uL (4.8-10.8) 08/30/20 09:15 RBC 3.35 X10*6/uL (4.60-5.80) L 08/30/20 09:15 Hgb 12.3 g/dl (14.0-18.0) L 08/30/20 09:15 Hct 36.5 % (42-52) L 08/30/20 09:15 MCV 109.0 fL (80-98) H 08/30/20 09:15 MCH 36.7 pg (27.0-33.0) H 08/30/20 09:15 MCHC 33.7 g/dl (31.0-36.0) 08/30/20 09:15 RDW 17.3 % (11.0-16.0) H 08/30/20 09:15 Plt Count 106 X10*3/uL (160-400) L 08/30/20 09:15 MPV 11.5 fL (9.4-12.4) 08/30/20 09:15 Immature Gran % (Auto) 0.4 % (0.0-0.4) 08/30/20 09:15 Neut % (Auto) 65.7 % (45-73) 08/30/20 09:15 Lymph % (Auto) 18.0 % (20-40) L 08/30/20 09:15 [place] % (Auto) 11.8 % (2-11) H 08/30/20 09:15 Eos % (Auto) 3.7 % (0-4) 08/30/20 09:15 Baso % (Auto) 0.4 % (0-2) 08/30/20 09:15 Neut # (Auto) 4.0 X10*3/uL (2.0-8.3) 05/19/20 10:55 Lymph # (Auto) 1.0 X10*3/uL (1.2-4.9) L 08/30/20 09:15 [place] # (Auto) 0.7 X10*3/uL (0.1-1.2) 08/30/20 09:15 Eos # (Auto) 0.2 X10*3/uL (0.0-0.4) 08/30/20 09:15 Baso # (Auto) 0.0 X10*3/uL (0.0-0.2) 08/30/20 09:15 Abs Immat Gran (auto) 0.02 X10*3/uL (0.00-0.03) 08/30/20 09:15 Absolute Neuts (auto) 3.7 X10*3/uL (2.0-8.3) 08/30/20 09:15 Absolute Nucleated RBC 0.000 X10*3/uL (0.0-0.012) 08/30/20 09:15 Nucleated RBC % (auto) 0.0 /100WBC (0.0-0.2) 08/30/20 09:15 Sodium 136 mmol/L (135-145) 08/30/20 09:15 Potassium 4.1 mmol/l (3.3-5.1) 08/30/20 09:15 Chloride 104 mmol/L (96-108) 08/30/20 09:15 Carbon Dioxide 23 mmol/L (22-29) 08/30/20 09:15 Anion Gap 13 (12-20) 08/30/20 09:15 BUN 12 mg/dL (9-16) 08/30/20 09:15 Creatinine 0.79 mg/dL (0.5-1.4) 08/30/20 09:15 Estim Creat Clear Calc 103.2 08/30/20 09:15 Estimated GFR > 60 08/30/20 09:15 Random Glucose 95 mg/dL (60-115) 08/30/20 09:15 Calcium 8.8 mg/dL (8.4-10.2) 08/30/20 09:15 Magnesium 2.1 mg/dL (1.6-2.6) 08/30/20 09:15 Total Bilirubin 2.6 mg/dL (0.0-1.0) H 08/30/20 09:15 AST 38 U/L (5-37) H 08/30/20 09:15 ALT 25 U/L (0-40) 08/30/20 09:15 Alkaline Phosphatase 76 U/L (39-117) 08/30/20 09:15 Total Protein 6.6 g/dL (6.5-8.0) 08/30/20 09:15 Albumin 4.0 g/dL (3.5-5.0) 08/30/20 09:15 Carcinoembryonic Ag 2.50 mg/mL D 08/02/20 10:20 Urine Color YELLOW 08/30/20 09:15 Urine Appearance CLEAR 08/30/20 09:15 Urine pH 5.5 (5.0-8.0) 08/30/20 09:15 Ur Specific [place] 1.025 (1.005-1.025) 08/30/20 09:15 Urine Protein NEG MG/DL (NEG-TRACE) 08/30/20 09:15 Urine Glucose (UA) NEG MG/DL (NEG) 08/30/20 09:15 Urine Ketones NEG MG/DL (NEG) 08/30/20 09:15 Urine Blood NEG (NEG) 08/30/20 09:15 Urine Nitrite NEG (NEG) 08/30/20 09:15 Ur Leukocyte Esterase NEG (NEG) 08/30/20 09:15 Urine Creatinine 217.97 mg/dL 08/02/20 10:20 Progress Note: A/P (1) Colon cancer metastasized to liver Status: Chronic Assessment and plan: 1. This is a 60-year-old gentleman, with metastatic colon carcinoma, with liver and lung metastases. Biopsy of the liver lesion, Moderately differentiated adenocarcinoma. KRAS and BRAF negative. NRAS negative, MSI proficient or MSI stable. HER2 and panTRK negative. He developed bowel obstruction, palliative bypass ileostomy has been performed in November 2018. He started on mFOLFOX/Avastin regimen from 11/27/2018. His last treatment cycle 13 was on 05/14/2019. Now on maintenance Xeloda 1500 mg p.o. b.i.d. 2 weeks on/1 week off, along with bevacizumab Q 3 weeks starting 10/22/2019. He is tolerating treatment well. CEA level below 2. 2. 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 He has been tapered off prednisone and CellCept. He is also off the oxygen. 3. Chronic arthralgias. He is on MSContin 30 mg b.i.d. he is on oxycodone 5 mg for breakthrough pain 2 to 3 times a day. He reports increased joint aches when he is on Xeloda for 2 weeks. 4. Intermittent elevation of bilirubin, indirect bilirubinemia, probable Gilbert's syndrome. CEA is slightly trending upward, this will be continue to be monitored. Proceed with treatment today, labs look good. - Time Spent With Patient Total time spent is greater than 50% in coordination of care (as documented) at patient's floor/unit and/or counseling patient: 15 - 24 minutes
[2020-08-30] MEDS: Heparin Sodium,Porcine Flush 500 UNIT/5 ML SYRINGE IVFLUSH (12:04)
[2020-08-30 14:09] LABS: Creatinine Urine 116.28 mg/dL
--- NOTE | 2020-08-30 15:11 | MHC.HEMONC ---
Addendum entered by Susan Olmedo RN 08/30/20 16:10: Dr Mckee in to see pt today for follow up. Original Note: Pt here for his chemo infusion. States feeling well since last treatment. Port accessed, labs drawn and reviewed. Treatment done and pt tolerated well. Scheduled to return for next treatment in 3 weeks.
[2020-09-20 09:19] VITALS: BP 107/61; PULSE 82; RESP 18; TEMP 36.6; O2SAT 93; BMI 23.8
[2020-09-20 10:05] LABS: MANUAL DIFF FLAG NO
[2020-09-20 10:11] LABS: Basophils Percent Auto 0.1 % (0-2); Eosinophils Absolute Auto 0.1 X10*3/uL (0.0-0.4); Eosinophils Percent Auto 0.7 % (0-4); Hematocrit 38.6 % (42-52); Hemoglobin 13.1 g/dl (14.0-18.0); Imm Gran Abs Auto 0.03 X10*3/uL (0.00-0.03); Imm Gran Pct Auto 0.4 % (0.0-0.4); Lymphocytes Absolute Auto 1.2 X10*3/uL (1.2-4.9); Lymphocytes Percent Auto 13.6 % (20-40); Mean Corpuscular HGB Conc 33.9 g/dl (31.0-36.0); Mean Corpuscular Hemoglobin 36.8 pg (27.0-33.0); Mean Corpuscular Volume 108.4 fL (80-98); Mean Platelet Volume 11.4 fL (9.4-12.4); Monocytes Percent Auto 12.2 % (2-11); Neutrophils Absolute Auto 6.2 X10*3/uL (2.0-8.3); Platelet Count 131 X10*3/uL (160-400); Red Blood Count 3.56 X10*6/uL (4.60-5.80); Red Cell Distribution Width 17.7 % (11.0-16.0); White Blood Count 8.5 X10*3/uL (4.8-10.8)
[2020-09-20 10:29] LABS: Glucose Urine UA NEG (NEG); Leukocyte Esterase Urine NEG (NEG); Nitrite Urine NEG (NEG); Specific Gravity - Urine 1.015 (1.005-1.025); Urine Blood NEG (NEG); Urine Ketones NEG (NEG); Urine Protein NEG (NEG-TRACE)
[2020-09-20 10:33] LABS: Appearance Urine CLEAR; Color Urine YELLOW
[2020-09-20 10:58] LABS: Mucus Urine 3+ /LPF; RBC Urine 0 /HPF (0); Renal Epithelial Cells Urine 1+ /LPF
[2020-09-20 11:31] LABS: Alanine Aminotransferase 38 U/L (0-40); Albumin Level 3.9 g/dL (3.5-5.0); Alkaline Phosphatase 82 U/L (39-117); Anion Gap 11 (12-20); Aspartate Amino Transferase 58 U/L (5-37); Bilirubin Total 4.6 mg/dL (0.0-1.0); Blood Urea Nitrogen 9 mg/dL (9-16); Calcium 8.7 mg/dL (8.4-10.2); Carbon Dioxide 25 mmol/L (22-29); Chloride 103 mmol/L (96-108); Creatinine Clr Calc Pharmacy 103.2; Estimated Glomerular Filt Rate > 60; Glucose Random 122 mg/dL (60-115); Sodium 135 mmol/L (135-145); Total Protein 6.7 g/dL (6.5-8.0)
[2020-09-20] MEDS: Heparin Sodium,Porcine Flush 500 UNIT/5 ML SYRINGE IVFLUSH (12:19)
[2020-09-20] MEDS: SODIUM CHLORIDE 0.9% IV (13:01)
[2020-09-20] MEDS: BEVACIZUMAB IV (13:01)
--- NOTE | 2020-10-04 13:17 | P.PNHO_ITS ---
[facility] Telehealth - Telehealth Location of Provider rendering services: Oncology department Telehealth Method: this method is used by telephone Medical Summary - Medical Summary Date of Service: 10/04/20 Medical Summary: Metastatic colon cancer diagnosed in October 2018. Presented with abdominal pain, 30 pound weight loss and severe pain. He had abnormal colonoscopy in 2009. He was told he needed a repeat colonoscopy in 5 years but he did not go for testing. CT abdomen/pelvis with IV contrast shows multiple areas of wall thickening in the sigmoid colon as well as thickening and enhancement of cecum, terminal ileum. Long segment of wall thickening of the distal transverse colon and left colon. Enlarged mesenteric and retroperitoneal lymph nodes, multiple liver metastasis and lung metastasis, all of these worrisome for metastatic colorectal malignancy. 11/01/18-Core biopsy of the right liver mass, moderately differentiated adenocarcinoma consistent with colorectal primary. KRAS mutation not detected BRAF mutation not detected. NRAS negative, MSI proficient or MSI stable. He developed bowel obstruction, palliative bypass ileostomy has been performed in November 2018. He started on mFOLFOX/Avastin regimen from 11/27/2018. His last treatment cycle 13 was on 05/14/2019. 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 Repeat CT abdomen/pelvis on 09/18/2019 showed further decrease in size of liver metastasis. Started maintenance treatment with Xeloda and bevacizumab in October 2019. Home Medications and Allergies Home Medications Medication Instructions Recorded Confirmed Type capecitabine [Xeloda] 1,500 mg PO BID 05/19/20 09/20/20 History cholestyramine (with sugar) 1 ea PO BID 05/19/20 09/20/20 History [Questran] loperamide [Imodium] 2 mg PO QID PRN 05/19/20 09/20/20 History Allergies Allergy/AdvReac Type Severity Reaction Status Date / Time prednisone [PREDNISONE] AdvReac Intermediate Psychosis Verified 08/10/20 13:51 Exam Vital signs: Vital Signs Temp 97.8 F 09/20/20 09:19 Pulse 82 09/20/20 09:19 Resp 18 09/20/20 09:19 BP 107/61 09/20/20 09:19 Pulse Ox 93 09/20/20 09:19 Weight 77.4 kg Body Mass Index 23.8 - Constitutional Present: no acute distress - Routine HEENT Exam Head: Present: normal inspection - Routine Neck Exam Present: full ROM. Absent: lymphadenopathy - Routine Respiratory Exam Present: CTAB - Routine Cardiovascular Exam Cardiovascular: Present: RRR, S1, S2 - Routine Abdominal Exam Present: normal bowel sounds, soft. Absent: mass, organomegaly - Routine Extremities Exam Present: full ROM. Absent: calf tenderness, pedal edema - Routine Skin Exam Present: intact. Absent: cyanosis, erythema - Routine Neurological Exam Present: alert, oriented X3 Data - Labs CBC & Chem 7: 09/20/20 09:44 09/20/20 09:44 Labs: 05/19/20 00:00 Bevacizumab [Avastin] 400 mg Bevacizumab [Avastin] 150 mg 0.9 % Sodium Chloride [Ns] 78 ml IV ONCE Heparin Sodium,Porcine Flush 500 unit IVFLUSH ONCE ondansetron ODT [Zofran ODT] 8 mg TRANSLINGU ONCE 05/19/20 10:55 Complete Blood Count Auto Diff Routine Comprehensive Met. Panel Routine Magnesium Routine 05/19/20 11:00 Creatinine Urine Routine UA and rflx microscopic Routine 06/09/20 00:00 Bevacizumab [Avastin] 400 mg Bevacizumab [Avastin] 150 mg 0.9 % Sodium Chloride [Ns] 78 ml IV ONCE Heparin Sodium,Porcine Flush 500 unit IVFLUSH ONCE ondansetron ODT [Zofran ODT] 8 mg PO ONCE 06/09/20 09:40 Complete Blood Count Auto Diff Routine Comprehensive Met. Panel Routine Creatinine Urine Routine Magnesium Routine UA and rflx microscopic Routine 06/09/20 09:59 Acetaminophen [Tylenol] 650 mg PO ONCE ONE 07/05/20 00:00 Bevacizumab [Avastin] 400 mg Bevacizumab [Avastin] 150 mg 0.9 % Sodium Chlor derek [Ns] 78 ml IV ONCE Heparin Sodium,Porcine Flush 500 unit IVFLUSH ONCE ondansetron ODT [Zofran ODT] 8 mg TRANSLINGU ONCE 07/05/20 10:00 Carcinoembryonic Antigen Routine Complete Blood Count Auto Diff Routine Comprehensive Met. Panel Routine Creatinine Urine Routine Magnesium Routine UA and rflx microscopic Routine 07/05/20 11:38 Acetaminophen [Tylenol] 650 mg PO ONCE ONE 08/02/20 00:00 Bevacizumab [Avastin] 400 mg Bevacizumab [Avastin] 175 mg 0.9 % Sodium Chloride [Ns] 77 ml IV ONCE Heparin Sodium,Porcine Flush 500 unit IVFLUSH ONCE ondansetron ODT [Zofran ODT] 8 mg TRANSLINGU ONCE 08/02/20 10:20 CEA [Carcinoembryonic Antigen] Routine Complete Blood Count Auto Diff Routine Comprehensive Met. Panel Routine Creatinine Urine Routine Magnesium Routine UA and rflx microscopic Routine 08/02/20 11:37 Acetaminophen [Tylenol] 650 mg PO ONCE ONE 08/30/20 09:15 Complete Blood Count Auto Diff Routine Comprehensive Met. Panel Routine Magnesium Routine UA and rflx microscopic Routine Laboratory Last Values WBC 5.7 X10*3/uL (4.8-10.8) 08/30/20 09:15 RBC 3.35 X10*6/uL (4.60-5.80) L 08/30/20 09:15 Hgb 12.3 g/dl (14.0-18.0) L 08/30/20 09:15 Hct 36.5 % (42-52) L 08/30/20 09:15 MCV 109.0 fL (80-98) H 08/30/20 09:15 MCH 36.7 pg (27.0-33.0) H 08/30/20 09:15 MCHC 33.7 g/dl (31.0-36.0) 08/30/20 09:15 RDW 17.3 % (11.0-16.0) H 08/30/20 09:15 Plt Count 106 X10*3/uL (160-400) L 08/30/20 09:15 MPV 11.5 fL (9.4-12.4) 08/30/20 09:15 Immature Gran % (Auto) 0.4 % (0.0-0.4) 08/30/20 09:15 Neut % (Auto) 65.7 % (45-73) 08/30/20 09:15 Lymph % (Auto) 18.0 % (20-40) L 08/30/20 09:15 [place] % (Auto) 11.8 % (2-11) H 08/30/20 09:15 Eos % (Auto) 3.7 % (0-4) 08/30/20 09:15 Baso % (Auto) 0.4 % (0-2) 08/30/20 09:15 Neut # (Auto) 4.0 X10*3/uL (2.0-8.3) 10/07/20 10:55 Lymph # (Auto) 1.0 X10*3/uL (1.2-4.9) L 08/30/20 09:15 [place] # (Auto) 0.7 X10*3/uL (0.1-1.2) 08/30/20 09:15 Eos # (Auto) 0.2 X10*3/uL (0.0-0.4) 08/30/20 09:15 Baso # (Auto) 0.0 X10*3/uL (0.0-0.2) 08/30/20 09:15 Abs Immat Gran (auto) 0.02 X10*3/uL (0.00-0.03) 08/30/20 09:15 Absolute Neuts (auto) 3.7 X10*3/uL (2.0-8.3) 08/30/20 09:15 Absolute Nucleated RBC 0.000 X10*3/uL (0.0-0.012) 08/30/20 09:15 Nucleated RBC % (auto) 0.0 /100WBC (0.0-0.2) 08/30/20 09:15 Sodium 136 mmol/L (135-145) 08/30/20 09:15 Potassium 4.1 mmol/l (3.3-5.1) 08/30/20 09:15 Chloride 104 mmol/L (96-108) 08/30/20 09:15 Carbon Dioxide 23 mmol/L (22-29) 08/30/20 09:15 Anion Gap 13 (12-20) 08/30/20 09:15 BUN 12 mg/dL (9-16) 08/30/20 09:15 Creatinine 0.79 mg/dL (0.5-1.4) 08/30/20 09:15 Estim Creat Clear Calc 103.2 08/30/20 09:15 Estimated GFR > 60 08/30/20 09:15 Random Glucose 95 mg/dL (60-115) 08/30/20 09:15 Calcium 8.8 mg/dL (8.4-10.2) 08/30/20 09:15 Magnesium 2.1 mg/dL (1.6-2.6) 08/30/20 09:15 Total Bilirubin 2.6 mg/dL (0.0-1.0) H 08/30/20 09:15 AST 38 U/L (5-37) H 08/30/20 09:15 ALT 25 U/L (0-40) 08/30/20 09:15 Alkaline Phosphatase 76 U/L (39-117) 08/30/20 09:15 Total Protein 6.6 g/dL (6.5-8.0) 08/30/20 09:15 Albumin 4.0 g/dL (3.5-5.0) 08/30/20 09:15 Carcinoembryonic Ag 2.50 mg/mL D 08/02/20 10:20 Urine Color YELLOW 08/30/20 09:15 Urine Appearance CLEAR 08/30/20 09:15 Urine pH 5.5 (5.0-8.0) 08/30/20 09:15 Ur Specific [place] 1.025 (1.005-1.025) 08/30/20 09:15 Urine Protein NEG MG/DL (NEG-TRACE) 08/30/20 09:15 Urine Glucose (UA) NEG MG/DL (NEG) 08/30/20 09:15 Urine Ketones NEG MG/DL (NEG) 08/30/20 09:15 Urine Blood NEG (NEG) 08/30/20 09:15 Urine Nitrite NEG (NEG) 08/30/20 09:15 Ur Leukocyte Esterase NEG (NEG) 08/30/20 09:15 Urine Creatinine 217.97 mg/dL 08/02/20 10:20 Progress Note: A/P (1) Colon cancer metastasized to liver Status: Chronic Assessment and plan: 1. This is a 60-year-old gentleman, with metastatic colon carcinoma, with liver and lung metastases. Biopsy of the liver lesion, Moderately differentiated adenocarcinoma. KRAS and BRAF negative. NRAS negative, MSI proficient or MSI stable. HER2 and panTRK negative. He developed bowel obstruction, palliative bypass ileostomy has been performed in November 2018. He started on mFOLFOX/Avastin regimen from 11/27/2018. His last treatment cycle 13 was on 05/14/2019. Now on maintenance Xeloda 1500 mg p.o. b.i.d. 2 weeks on/1 week off, along with bevacizumab Q 3 weeks starting 10/22/2019. He is tolerating treatment well. CEA level below 2. 2. 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 He has been tapered off prednisone and CellCept. He is also off the oxygen. 3. Chronic arthralgias. He is on MSContin 30 mg b.i.d. he is on oxycodone 5 mg for breakthrough pain 2 to 3 times a day. He reports increased joint aches when he is on Xeloda for 2 weeks. 4. Intermittent elevation of bilirubin, indirect bilirubinemia, probable Gilbert's syndrome. CEA is slightly trending upward, this will be continue to be monitored. Proceed with treatment today, labs look good. - Time Spent With Patient Total time spent is greater than 50% in coordination of care (as documented) at patient's floor/unit and/or counseling patient:
[2020-10-11 08:59] VITALS: BP 126/72; PULSE 81; RESP 18; TEMP 37; O2SAT 91; BMI 23.8
[2020-10-11 09:42] LABS: MANUAL DIFF FLAG NO
[2020-10-11 10:09] LABS: Basophils Percent Auto 0.2 % (0-2); Eosinophils Absolute Auto 0.2 X10*3/uL (0.0-0.4); Eosinophils Percent Auto 4.2 % (0-4); Hematocrit 40.8 % (42-52); Hemoglobin 13.6 g/dl (14.0-18.0); Imm Gran Abs Auto 0.02 X10*3/uL (0.00-0.03); Imm Gran Pct Auto 0.4 % (0.0-0.4); Lymphocytes Percent Auto 18.2 % (20-40); Mean Corpuscular HGB Conc 33.3 g/dl (31.0-36.0); Mean Corpuscular Hemoglobin 36.2 pg (27.0-33.0); Mean Corpuscular Volume 108.5 fL (80-98); Mean Platelet Volume 11.6 fL (9.4-12.4); Monocytes Absolute Auto 0.6 X10*3/uL (0.1-1.2); Monocytes Percent Auto 11.4 % (2-11); Neutrophils Absolute Auto 3.6 X10*3/uL (2.0-8.3); Neutrophils Percent Auto 65.6 % (45-73); Platelet Count 145 X10*3/uL (160-400); Red Blood Count 3.76 X10*6/uL (4.60-5.80); Red Cell Distribution Width 18.7 % (11.0-16.0); White Blood Count 5.5 X10*3/uL (4.8-10.8)
[2020-10-11 10:41] LABS: Glucose Urine UA NEG (NEG); Leukocyte Esterase Urine NEG (NEG); Nitrite Urine NEG (NEG); PH 5.5 (5.0-8.0); Specific Gravity - Urine 1.025 (1.005-1.025); Urine Blood NEG (NEG); Urine Ketones NEG (NEG); Urine Protein NEG (NEG-TRACE)
[2020-10-11 10:45] LABS: Appearance Urine CLEAR; Color Urine YELLOW
[2020-10-11 10:47] LABS: Alanine Aminotransferase 27 U/L (0-40); Albumin Level 4.1 g/dL (3.5-5.0); Alkaline Phosphatase 81 U/L (39-117); Anion Gap 13 (12-20); Aspartate Amino Transferase 43 U/L (5-37); Bilirubin Total 3.1 mg/dL (0.0-1.0); Blood Urea Nitrogen 10 mg/dL (9-16); Calcium 8.9 mg/dL (8.4-10.2); Carbon Dioxide 24 mmol/L (22-29); Chloride 104 mmol/L (96-108); Creatinine Clr Calc Pharmacy 107.3; Estimated Glomerular Filt Rate > 60; Glucose Fasting 98 mg/dL (60-99); Potassium 3.9 mmol/L (3.3-5.1); Sodium 137 mmol/L (135-145)
[2020-10-11 10:48] LABS: RBC Urine 0 /HPF (0); WBC Urine 0 /HPF (0-4)
[2020-10-11] MEDS: Heparin Sodium,Porcine Flush 500 UNIT/5 ML SYRINGE IVFLUSH (12:08)
[2020-10-11] MEDS: SODIUM CHLORIDE 0.9% IV (12:13)
[2020-10-11] MEDS: BEVACIZUMAB IV (12:13)
--- NOTE | 2020-10-11 12:54 | P.PNHO_ITS ---
Medical Summary - Medical Summary Date of Service: 10/11/20 Chief complaint: Scheduled follow-up and treatment Medical Summary: Metastatic colon cancer diagnosed in October 2018. Presented with abdominal pain, 30 pound weight loss and severe pain. He had abnormal colonoscopy in 2009. He was told he needed a repeat colonoscopy in 5 years but he did not go for testing. CT abdomen/pelvis with IV contrast shows multiple areas of wall thickening in the sigmoid colon as well as thickening and enhancement of cecum, terminal ileum. Long segment of wall thickening of the di stal transverse colon and left colon. Enlarged mesenteric and retroperitoneal lymph nodes, multiple liver metastasis and lung metastasis, all of these worrisome for metastatic colorectal malignancy. 11/01/18-Core biopsy of the right liver mass, moderately differentiated adenocarcinoma consistent with colorectal primary. KRAS mutation not detected BRAF mutation not detected. NRAS negative, MSI proficient or MSI stable. He developed bowel obstruction, palliative bypass ileostomy has been performed in November 2018. He started on mFOLFOX/Avastin regimen from 11/27/2018. His last treatment cycle 13 was on 05/14/2019. 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 Repeat CT abdomen/pelvis on 09/18/2019 showed further decrease in size of liver metastasis. Started maintenance treatment with Xeloda and bevacizumab in October 2019. Interval History Interval history: Patient is here for follow-up and scheduled treatment. He is doing well and has no new complaints today. He denies any abdominal pain, nausea, diarrhea, fever or chills. No exertional chest pain or shortness of breath. He is trying to cut back on his narcotic pain medications. Review of Systems - Constitutional Reports no additional constitutional complaints, Denies chills, Denies fever(s) - Cardiovascular Denies chest pain with activity, Denies leg swelling - Respiratory Denies cough, Denies dyspnea - Gastrointestinal Denies abdominal pain, Denies change in bowel habits [facility] Medical History: Medical History (Last Updated 08/10/20 @ 21:47 by Shravan Mcginnis MD) Chronic respiratory failure ILD (interstitial lung disease) Pulmonary fibrosis Tubular adenoma Family History: Family History (Last Updated 05/19/20 @ 16:28 by Simona Alanis RN) Son Cystic fibrosis Brother Esophageal cancer Maternal Aunt Lung cancer Surgical History: Surgical History (Last Updated 05/19/20 @ 16:24 by Simona Alanis RN) H/O knee surgery Social History: Social History (Last Updated 05/19/20 @ 16:27 by Simona Alanis RN) Living Situation History: Household Members: Spouse Household Members: Children Alcohol History Quit Date: Year quit: 2019 Alcohol History Details: Alcohol intake frequency: former alcohol drinker Tobacco History: Smoking Status: Former smoker Tobacco Type: Cigarette Substance Use History: Use of substances other than those prescribed or required for medical reasons : No Advance Directives: Advance Directives: Yes Advance Directives Information Provided: No Advance Directives on File: Yes Advance Directives Date on File: 10/31/18 Nutrition Assessment: Recently lost weight without trying: No Occupation Assessmet: service: No Current occupational status: employed Current occupation: [employer] Smoking status: Former smoker Oncology 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 Performance Status ECOG Performance Status: 1 Home Medications and Allergies Current Medications: Current Medications Generic Name Dose Route Start Last Admin Trade Name Freq PRN Reason Stop Dose Admin Heparin Sodium (Porcine) 500 unit 10/11/20 00:00 10/11/20 12:08 Heparin Sodium,Porcine Flush 500 Unit/5 Ml Syringe IVFLUSH 10/11/20 23:59 500 unit ONCE PINEDA Administration Bevacizumab 400 mg/ 100 mls @ 66.667 mls/hr 10/11/20 00:00 10/11/20 12:13 Bevacizumab 175 mg/ Sodium IV 10/11/20 23:59 200 mls/hr Chloride ONCE PINEDA Administration Ondansetron HCl 8 mg 10/11/20 00:00 10/11/20 12:07 Ondansetron Odt 8 Mg Tab.Rapdis PO 10/11/20 23:59 8 mg ONCE PINEDA Administration Home Medications Medication Instructions Recorded Confirmed Type capecitabine [Xeloda] 1,500 mg PO BID 05/19/20 10/11/20 History cholestyramine (with sugar) 1 ea PO BID 05/19/20 10/11/20 History [Questran] loperamide [Imodium] 2 mg PO QID PRN 05/19/20 10/11/20 History Allergies Allergy/AdvReac Type Severity Reaction Status Date / Time prednisone [PREDNISONE] AdvReac Intermediate Psychosis Verified 08/10/20 13:51 Exam Vital signs: Vital Signs Temp 98.6 F 10/11/20 08:59 Pulse 81 10/11/20 08:59 Resp 18 10/11/20 08:59 BP 126/72 10/11/20 08:59 Pulse Ox 91 L 10/11/20 08:59 Intake & Output 10/10/20 10/11/20 10/11/20 18:59 06:59 18:59 Other: Weight 77.3 kg [place] Weight in Grams [id number] Weight 77.3 kg Body Mass Index 23.8 - Constitutional Present: no acute distress - Routine HEENT Exam Head: Present: normal inspection - Routine Neck Exam Present: full ROM. Absent: lymphadenopathy - Routine Respiratory Exam Present: CTAB - Routine Cardiovascular Exam Cardiovascular: Present: RRR, S1, S2 - Routine Abdominal Exam Present: normal bowel sounds, soft. Absent: mass, organomegaly - Routine Extremities Exam Present: full ROM. Absent: calf tenderness, pedal edema - Routine Skin Exam Present: intact. Absent: cyanosis, erythema - Routine Neurological Exam Present: alert, oriented X3 Data - Labs CBC & Chem 7: 10/11/20 09:25 10/11/20 09:25 Labs: 05/19/20 00:00 Bevacizumab [Avastin] 400 mg Bevacizumab [Avastin] 150 mg 0.9 % Sodium Chloride [Ns] 78 ml IV ONCE Heparin Sodium,Porcine Flush 500 unit IVFLUSH ONCE ondansetron ODT [Zofran ODT] 8 mg TRANSLINGU ONCE 05/19/20 10:55 Complete Blood Count Auto Diff Routine Comprehensive Met. Panel Routine Magnesium Routine 05/19/20 11:00 Creatinine Urine Routine UA and rflx microscopic Routine 06/09/20 00:00 Bevacizumab [Avastin] 400 mg Bevacizumab [Avastin] 150 mg 0.9 % Sodium Chloride [Ns] 78 ml IV ONCE Heparin Sodium,Porcine Flush 500 unit IVFLUSH ONCE ondansetron ODT [Zofran ODT] 8 mg PO ONCE 06/09/20 09:40 Complete Blood Count Auto Diff Routine Comprehensive Met. Panel Routine Creatinine Urine Routine Magnesium Routine UA and rflx microscopic Routine 06/09/20 09:59 Acetaminophen [Tylenol] 650 mg PO ONCE ONE 07/05/20 00:00 Bevacizumab [Avastin] 400 mg Bevacizumab [Avastin] 150 mg 0.9 % Sodium Chloride [Ns] 78 ml IV ONCE Heparin Sodium,Porcine Flush 500 unit IVFLUSH ONCE ondansetron ODT [Zofran ODT] 8 mg TRANSLINGU ONCE 07/05/20 10:00 Carcinoembryonic Antigen Routine Complete Blood Count Auto Diff Routine Comprehensive Met. Panel Routine Creatinine Urine Routine Magnesium Routine UA and rflx microscopic Routine 07/05/20 11:38 Acetaminophen [Tylenol] 650 mg PO ONCE ONE 08/02/20 00:00 Bevacizumab [Avastin] 400 mg Bevacizumab [Avastin] 175 mg 0.9 % Sodium Chloride [Ns] 77 ml IV ONCE Heparin Sodium,Porcine Flush 500 unit IVFLUSH ONCE ondansetron ODT [Zofran ODT] 8 mg TRANSLINGU ONCE 08/02/20 10:20 CEA [Carcinoembryonic Antigen] Routine Complete Blood Count Auto Diff Routine Comprehensive Met. Panel Routine Creatinine Urine Routine Magnesium Routine UA and rflx microscopic Routine 08/02/20 11:37 Acetaminophen [Tylenol] 650 mg PO ONCE ONE 08/30/20 00:00 Bevacizumab [Avastin] 400 mg Bevacizumab [Avastin] 175 mg 0.9 % Sodium Chloride [Ns] 77 ml IV ONCE Heparin Sodium,Porcine Flush 500 unit IVFLUSH ONCE ondansetron ODT [Zofran ODT] 8 mg TRANSLINGU ONCE 08/30/20 09:15 Carcinoembryonic Antigen Routine Complete Blood Count Auto Diff Routine Comprehensive Met. Panel Routine Magnesium Routine UA and rflx microscopic Routine 08/30/20 11:52 Creatinine Urine Routine 09/20/20 00:00 Bevacizumab [Avastin] 400 mg Bevacizumab [Avastin] 175 mg 0.9 % Sodium Chloride [Ns] 77 ml IV ONCE Heparin Sodium,Porcine Flush 500 unit IVFLUSH ONCE ondansetron ODT [Zofran ODT] 8 mg TRANSLINGU ONCE 09/20/20 09:44 Complete Blood Count Auto Diff Routine Comprehensive Met. Panel Routine 09/20/20 09:55 UA w Microscopic Stat 10/11/20 09:25 CBC W/AUTO DIFF [Complete Blood Count Auto Diff] Routine CMP [Comprehensive [place]. Panel Fast] Routine 10/11/20 09:38 UA w Microscopic Routine Laboratory Last Values WBC 5.5 X10*3/uL (4.8-10.8) 10/11/20 09:25 RBC 3.76 X10*6/uL (4.60-5.80) L 10/11/20 09:25 Hgb 13.6 g/dl (14.0-18.0) L 10/11/20 09:25 Hct 40.8 % (42-52) L 10/11/20 09:25 MCV 108.5 fL (80-98) H 10/11/20 09:25 MCH 36.2 pg (27.0-33.0) H 10/11/20 09:25 MCHC 33.3 g/dl (31.0-36.0) 10/11/20 09:25 RDW 18.7 % (11.0-16.0) H 10/11/20 09:25 Plt Count 145 X10*3/uL (160-400) L 10/11/20 09:25 MPV 11.6 fL (9.4-12.4) 10/11/20 09:25 Immature Gran % (Auto) 0.4 % (0.0-0.4) 10/11/20 09:25 Neut % (Auto) 65.6 % (45-73) 10/11/20 09:25 Lymph % (Auto) 18.2 % (20-40) L 10/11/20 09:25 [place] % (Auto) 11.4 % (2-11) H 10/11/20 09:25 Eos % (Auto) 4.2 % (0-4) H 10/11/20 09:25 Baso % (Auto) 0.2 % (0-2) 10/11/20 09:25 Neut # (Auto) 4.0 X10*3/uL (2.0-8.3) 05/19/20 10:55 Lymph # (Auto) 1.0 X10*3/uL (1.2-4.9) L 10/11/20 09:25 [place] # (Auto) 0.6 X10*3/uL (0.1-1.2) 10/11/20 09:25 Eos # (Auto) 0.2 X10*3/uL (0.0-0.4) 10/11/20 09:25 Baso # (Auto) 0.0 X10*3/uL (0.0-0.2) 10/11/20 09:25 Abs Immat Gran (auto) 0.02 X10*3/uL (0.00-0.03) 10/11/20 09:25 Absolute Neuts (auto) 3.6 X10*3/uL (2.0-8.3) 10/11/20 09:25 Absolute Nucleated RBC 0.000 X10*3/uL (0.0-0.012) 10/11/20 09:25 Nucleated RBC % (auto) 0.0 /100WBC (0.0-0.2) 10/11/20 09:25 Sodium 137 mmol/L (135-145) 10/11/20 09:25 Potassium 3.9 mmol/L (3.3-5.1) 10/11/20 09:25 Chloride 104 mmol/L (96-108) 10/11/20 09:25 Carbon Dioxide 24 mmol/L (22-29) 10/11/20 09:25 Anion Gap 13 (12-20) 10/11/20 09:25 BUN 10 mg/dL (9-16) 10/11/20 09:25 Creatinine 0.76 mg/dL (0.5-1.4) 10/11/20 09:25 Estim Creat Clear Calc 107.3 10/11/20 09:25 Estimated GFR > 60 10/11/20 09:25 Random Glucose 122 mg/dL (60-115) H 09/20/20 09:44 Fasting Glucose 98 mg/dL (60-99) 10/11/20 09:25 Calcium 8.9 mg/dL (8.4-10.2) 10/11/20 09:25 Magnesium 2.1 mg/dL (1.6-2.6) 08/30/20 09:15 Total Bilirubin 3.1 mg/dL (0.0-1.0) H 10/11/20 09:25 AST 43 U/L (5-37) H 10/11/20 09:25 ALT 27 U/L (0-40) 10/11/20 09:25 Alkaline Phosphatase 81 U/L (39-117) 10/11/20 09:25 Total Protein 7.0 g/dL (6.5-8.0) 10/11/20 09:25 Albumin 4.1 g/dL (3.5-5.0) 10/11/20 09:25 Carcinoembryonic Ag 2.70 mg/mL 08/30/20 09:15 Urine Color YELLOW 10/11/20 09:38 Urine Appearance CLEAR 10/11/20 09:38 Urine pH 5.5 (5.0-8.0) 10/11/20 09:38 Ur Specific [place] 1.025 (1.005-1.025) 10/11/20 09:38 Urine Protein NEG MG/DL (NEG-TRACE) 10/11/20 09:38 Urine Glucose (UA) NEG MG/DL (NEG) 10/11/20 09:38 Urine Ketones NEG MG/DL (NEG) 10/11/20 09:38 Urine Blood NEG (NEG) 10/11/20 09:38 Urine Nitrite NEG (NEG) 10/11/20 09:38 Ur Leukocyte Esterase NEG (NEG) 10/11/20 09:38 Urine RBC 0 /HPF (0) 10/11/20 09:38 Urine WBC 0 /HPF (0-4) 10/11/20 09:38 Ur Squamous Epith Cells NONE /LPF 10/11/20 09:38 Ur Renal Epithelial Cell 1+ /LPF 09/20/20 09:55 Urine Bacteria NONE /LPF 10/11/20 09:38 Urine Mucus 3+ /LPF 09/20/20 09:55 Urine Creatinine 116.28 mg/dL 08/30/20 11:52 Progress Note: A/P (1) Colon cancer metastasized to liver Status: Chronic Assessment and plan: 1. This is a 60-year-old gentleman, with metastatic colon carcinoma, with liver and lung metastases. Biopsy of the liver lesion, Moderately differentiated adenocarcinoma. KRAS and BRAF negative. NRAS negative, MSI proficient or MSI stable. HER2 and panTRK negative. Initial CEA elevated at 91. He developed bowel obstruction, palliative bypass ileostomy has been performed in November 2018. He started on mFOLFOX/Avastin regimen from 11/27/2018. His last treatment cycle 13 was on 05/14/2019. Now on maintenance Xeloda 1500 mg p.o. b.i.d. 2 weeks on/1 week off, along with bevacizumab Q 3 weeks starting 10/22/2019. He is tolerating treatment well. CEA level below 2. 2. 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 He has been tapered off prednisone and CellCept. He is also off the oxygen. 3. Chronic arthralgias. He is on MSContin 30 mg b.i.d. he is on oxycodone 5 mg for breakthrough pain 2 to 3 times a day. He reports increased joint aches when he is on Xeloda for 2 weeks. 4. Intermittent elevation of bilirubin, indirect bilirubinemia, probable Gilbert's syndrome. CEA level from today is pending. He is doing well, proceed with treatment today. - Time Spent With Patient Total time spent is greater than 50% in coordination of care (as documented) at patient's floor/unit and/or counseling patient: 15 - 24 minutes
--- NOTE | 2020-10-11 15:37 | MHC.HEMONCSW ---
PATIENT OFFERS NO COMPLAINTS, DENIES ANY STRESS. BRIEF SUPPORTIVE COUNSELING PROVIDED.
[2020-11-01 08:56] VITALS: BMI 23.8
[2020-11-01 08:57] VITALS: BP 108/62; PULSE 78; RESP 18; TEMP 36.7; O2SAT 93
[2020-11-01 09:17] LABS: MANUAL DIFF FLAG NO
[2020-11-01 09:20] LABS: Basophils Percent Auto 0.3 % (0-2); Eosinophils Absolute Auto 0.3 X10*3/uL (0.0-0.4); Eosinophils Percent Auto 3.6 % (0-4); Hematocrit 36.8 % (42-52); Hemoglobin 12.5 g/dl (14.0-18.0); Imm Gran Abs Auto 0.02 X10*3/uL (0.00-0.03); Imm Gran Pct Auto 0.3 % (0.0-0.4); Lymphocytes Percent Auto 12.9 % (20-40); Mean Corpuscular Hemoglobin 37.2 pg (27.0-33.0); Mean Corpuscular Volume 109.5 fL (80-98); Monocytes Absolute Auto 0.9 X10*3/uL (0.1-1.2); Monocytes Percent Auto 11.8 % (2-11); Neutrophils Absolute Auto 5.3 X10*3/uL (2.0-8.3); Neutrophils Percent Auto 71.1 % (45-73); Platelet Count 122 X10*3/uL (160-400); Red Blood Count 3.36 X10*6/uL (4.60-5.80); Red Cell Distribution Width 19.2 % (11.0-16.0); White Blood Count 7.5 X10*3/uL (4.8-10.8)
[2020-11-01 09:23] LABS: Glucose Urine UA NEG (NEG); Leukocyte Esterase Urine NEG (NEG); Nitrite Urine NEG (NEG); Specific Gravity - Urine 1.025 (1.005-1.025); Urine Blood NEG (NEG); Urine Ketones NEG (NEG); Urine Protein NEG (NEG-TRACE)
[2020-11-01 09:24] LABS: Appearance Urine CLEAR; Color Urine YELLOW
[2020-11-01 09:43] LABS: Mucus Urine TRACE /LPF; RBC Urine 0 /HPF (0); WBC Urine 0-2 /HPF (0-4)
[2020-11-01 10:00] LABS: Alanine Aminotransferase 18 U/L (0-40); Alkaline Phosphatase 72 U/L (39-117); Anion Gap 14 (12-20); Aspartate Amino Transferase 37 U/L (5-37); Bilirubin Total 3.6 mg/dL (0.0-1.0); Blood Urea Nitrogen 10 mg/dL (9-16); Calcium 8.7 mg/dL (8.4-10.2); Carbon Dioxide 22 mmol/L (22-29); Chloride 104 mmol/L (96-108); Creatinine Clr Calc Pharmacy 100.7; Estimated Glomerular Filt Rate > 60; Glucose Random 109 mg/dL (60-115); Potassium 4.2 mmol/L (3.3-5.1); Sodium 136 mmol/L (135-145); Total Protein 6.7 g/dL (6.5-8.0)
[2020-11-01] MEDS: BEVACIZUMAB IV (11:01)
[2020-11-01] MEDS: SODIUM CHLORIDE 0.9% IV (11:01)
[2020-11-01] MEDS: Heparin Sodium,Porcine Flush 500 UNIT/5 ML SYRINGE IVFLUSH (11:45)
--- NOTE | 2020-11-01 16:08 | MHC.HEMONC ---
Pt here for Cycle 18 day 1 of Bevacizumab IV. Port accessed without difficulty. Labs drawn from port, urine specimen obtained and sent to lab. 0.9% NS infusing via port. Lab results reviewed. Pre mediated with zofran 8mg orally. Bevacizumab IV given as ordered. Port flushes with heparin and de accessed. Follow up appointment made, discharge instructions given.
[2020-11-22 08:58] VITALS: BP 135/63; PULSE 86; RESP 18; TEMP 36.3; O2SAT 92; BMI 23.7
[2020-11-22 09:23] LABS: MANUAL DIFF FLAG NO
[2020-11-22 09:29] LABS: Basophils Percent Auto 0.2 % (0-2); Eosinophils Absolute Auto 0.2 X10*3/uL (0.0-0.4); Eosinophils Percent Auto 3.4 % (0-4); Hematocrit 41.7 % (42-52); Hemoglobin 14.3 g/dl (14.0-18.0); Imm Gran Abs Auto 0.01 X10*3/uL (0.00-0.03); Imm Gran Pct Auto 0.2 % (0.0-0.4); Lymphocytes Absolute Auto 0.9 X10*3/uL (1.2-4.9); Lymphocytes Percent Auto 18.5 % (20-40); Mean Corpuscular HGB Conc 34.3 g/dl (31.0-36.0); Mean Corpuscular Hemoglobin 37.9 pg (27.0-33.0); Mean Platelet Volume 11.4 fL (9.4-12.4); Monocytes Absolute Auto 0.6 X10*3/uL (0.1-1.2); Monocytes Percent Auto 11.3 % (2-11); Neutrophils Absolute Auto 3.4 X10*3/uL (2.0-8.3); Neutrophils Percent Auto 66.4 % (45-73); Platelet Count 132 X10*3/uL (160-400); Red Blood Count 3.77 X10*6/uL (4.60-5.80); Red Cell Distribution Width 20.1 % (11.0-16.0)
[2020-11-22 09:34] LABS: Mean Corpuscular Volume 110.6 fL (80-98)
[2020-11-22 10:05] LABS: Alanine Aminotransferase 46 U/L (0-40); Albumin Level 4.3 g/dL (3.5-5.0); Alkaline Phosphatase 76 U/L (39-117); Anion Gap 17 (12-20); Aspartate Amino Transferase 160 U/L (5-37); Bilirubin Total 4.4 mg/dL (0.0-1.0); Blood Urea Nitrogen 12 mg/dL (9-16); Calcium 9.4 mg/dL (8.4-10.2); Carbon Dioxide 22 mmol/L (22-29); Chloride 103 mmol/L (96-108); Creatinine Clr Calc Pharmacy 101.9; Estimated Glomerular Filt Rate > 60; Glucose Random 119 mg/dL (60-115); Potassium 3.9 mmol/L (3.3-5.1); Sodium 138 mmol/L (135-145); Total Protein 7.2 g/dL (6.5-8.0)
[2020-11-22 10:07] LABS: Glucose Urine UA NEG (NEG); Leukocyte Esterase Urine NEG (NEG); Nitrite Urine NEG (NEG); PH 5.5 (5.0-8.0); Specific Gravity - Urine >= 1.030 (1.005-1.025); Urine Blood NEG (NEG); Urine Ketones NEG (NEG); Urine Protein NEG (NEG-TRACE)
[2020-11-22 10:09] LABS: Appearance Urine CLEAR; Color Urine AMBER
[2020-11-22 10:53] LABS: Mucus Urine 3+ /LPF; RBC Urine 0-2 /HPF (0); WBC Urine 0-2 /HPF (0-4)
[2020-11-22] MEDS: BEVACIZUMAB IV (11:06)
[2020-11-22] MEDS: SODIUM CHLORIDE 0.9% IV (11:06)
[2020-11-22] MEDS: Heparin Sodium,Porcine Flush 500 UNIT/5 ML SYRINGE IVFLUSH (11:52)
--- NOTE | 2020-11-22 12:02 | MHC.HEMONC ---
Pt here for Cycle 19 day 1 Bevacizumab IV. Port accessed without difficulty, lab work drawn and sent to lab. 0.9% NS infusing. Pt states he feels well today. Lab results reviewed, Dr Mceke notified of elevated AST and GPT. Okay to treat today per Dr Mckee. Plan for CT scan of abdomen per Dr Mckee. Order printed and given to Maria Luisa Cardona. Pt instructed to call department if he doesn't hear from scheduling for CT scan appointment in one week. Pre medicated with 8mg of zofran orally. Bevacizumab IV given as ordered. Port flushed with heparin and de accessed. Declines discharge teaching education sheet, calendar given for next appointment.
--- NOTE | 2020-11-22 15:02 | MHC.HEMONCSW ---
PATIENT CONTINUES TREATMENT. REMAINS INDEPENDENT. SON IS NOW RESIDING WITH HIM AND DOES ALL LIFTING AND CARRYING ITEMS, HE IS A GREAT HELP. HAS NO CONCERNS, NO DISTRESS. SUPPORT PROVIDED.
--- NOTE | 2020-12-10 10:27 | HO.HEMONCPA ---
No PA required for Avastin per [facility] Formulary
[2020-12-13 08:46] VITALS: BP 133/62; PULSE 82; RESP 18; TEMP 36.6; O2SAT 92; BMI 23.8
--- NOTE | 2020-12-13 08:49 | PM.HEMONCPN ---
Medical Summary - Medical Summary Date of Service: 12/13/20 Chief complaint: Follow-up and treatment Medical Summary: Metastatic colon cancer diagnosed in October 2018. Presented with abdominal pain, 30 pound weight loss and severe pain. He had abnormal colonoscopy in 2009. He was told he needed a repeat colonoscopy in 5 years but he did not go for testing. CT abdomen/pelvis with IV contrast shows multiple areas of wall thickening in the sigmoid colon as well as thickening and enhancement of cecum, terminal ileum. Long segment of wall thickening of the distal transverse colon and left colon. Enlarged mesenteric and retroperitoneal lymph nodes, multiple liver metastasis and lung metastasis, all of these worrisome for metastatic colorectal malignancy. 11/01/18-Core biopsy of the right liver mass, moderately differentiated adenocarcinoma consistent with colorectal primary. KRAS mutation not detected BRAF mutation not detected. NRAS negative, MSI proficient or MSI stable. He developed bowel obstruction, palliative bypass ileostomy has been performed in November 2018. He started on mFOLFOX/Avastin regimen from 11/27/2018. His last treatment cycle 13 was on 05/14/2019. 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 Repeat CT abdomen/pelvis on 09/18/2019 showed further decrease in size of liver metastasis. Started maintenance treatment with Xeloda and bevacizumab in October 2019. Interval History Interval history: Patient is here for scheduled follow-up and treatment. Overall he is doing well, denies any abdominal discomfort, nausea or emesis. He takes 1-2 Imodium daily to solidify his stools but he denies diarrhea. He denies loss of appetite or weight loss. His health is good overall. He is not taking short-acting narcotic pain medication on a daily basis anymore. He does take the long-acting medication daily. Review of Systems - Constitutional Reports as per HPI, Reports no additional constitutional complaints - Cardiovascular Reports no additional cardiovascular complaints - Respiratory Reports no additional respiratory complaints - Gastrointestinal Reports no additional gastrointestinal complaints [facility] Medical History: Medical History (Last Updated 08/10/20 @ 21:47 by Shravan Mcginnis MD) Chronic respiratory failure ILD (interstitial lung disease) Pulmonary fibrosis Tubular adenoma Family History: Family History (Last Updated 05/19/20 @ 16:28 by Simona Alanis RN) Son Cystic fibrosis Brother Esophageal cancer Maternal Aunt Lung cancer Surgical History: Surgical History (Last Updated 05/19/20 @ 16:24 by Simona Alanis RN) H/O knee surgery Social History: Social History (Last Updated 05/19/20 @ 16:27 by Simona Alanis RN) Living Situation History: Household Members: Spouse Household Members: Children Alcohol History Quit Date: Year quit: 2019 Alcohol History Details: Alcohol intake frequency: former alcohol drinker Tobacco History: Smoking Status: Former smoker Tobacco Type: Cigarette Substance Use History: Use of substances other than those prescribed or required for medical reasons: No Advance Directives: Advance Directives: Yes Advance Directives Information Provided: No Advance Directives on File: Yes Advance Directives Date on File: 10/31/18 Nutrition Assessment: Recently lost weight without trying: No Occupation Assessmet: service: No Current occupational status: employed Current occupation: [employer] Smoking status: Former smoker Oncology 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 Performance Status ECOG Performance Status: 0 Home Medications and Allergies Home Medications Medication Instructions Recorded Confirmed Type loperamide [Imodium] 2 mg PO QID PRN 05/19/20 10/11/20 History Allergies Allergy/AdvReac Type Severity Reaction Status Date / Time prednisone [PREDNISONE] AdvReac Intermediate Psychosis Verified 11/08/20 13:48 Exam Vital signs: Vital Signs Temp 97.9 F 12/13/20 08:46 Pulse 82 12/13/20 08:46 Resp 18 12/13/20 08:46 BP 133/62 12/13/20 08:46 Pulse Ox 92 12/13/20 08:46 Intake & Output 12/12/20 12/13/20 12/13/20 18:59 06:59 18:59 Other: Weight 77.3 kg Weight in Grams [id number] Weight 77.3 kg Body Mass Index 23.8 - Constitutional Present: no acute distress - Routine HEENT Exam Head: Present: normal inspection - Routine Neck Exam Present: full ROM. Absent: lymphadenopathy - Routine Respiratory Exam Present: CTAB - Routine Cardiovascular Exam Cardiovascular: Present: RRR, S1, S2 - Routine Abdominal Exam Present: normal bowel sounds, soft. Absent: mass, organomegaly - Routine Extremities Exam Present: full ROM. Absent: calf tenderness, pedal edema - Routine Skin Exam Present: intact. Absent: cyanosis, erythema - Routine Neurological Exam Present: alert, oriented X3 Data - Labs CBC & Chem 7: 12/13/20 08:55 12/13/20 08:55 Labs: 05/19/20 00:00 Bevacizumab [Avastin] 400 mg Bevacizumab [Avastin] 150 mg 0.9 % Sodium Chloride [Ns] 78 ml IV ONCE Heparin Sodium,Porcine Flush 500 unit IVFLUSH ONCE ondansetron ODT [Zofran ODT] 8 mg TRANSLINGU ONCE 05/19/20 10:55 Complete Blood Count Auto Diff Routine Comprehensive Met. Panel Routine Magnesium Routine 05/19/20 11:00 Creatinine Urine Routine UA and rflx microscopic Routine 06/09/20 00:00 Bevacizumab [Avastin] 400 mg Bevacizumab [Avastin] 150 mg 0.9 % Sodium Chloride [Ns] 78 ml IV ONCE Heparin Sodium,Porcine Flush 500 unit IVFLUSH ONCE ondansetron ODT [Zofran ODT] 8 mg PO ONCE 06/09/20 09:40 Complete Blood Count Auto Diff Routine Comprehensive Met. Panel Routine Creatinine Urine Routine Magnesium Routine UA and rflx microscopic Routine 06/09/20 09:59 Acetaminophen [Tylenol] 650 mg PO ONCE ONE 07/05/20 00:00 Bevacizumab [Avastin] 400 mg Bevacizumab [Avastin] 150 mg 0.9 % Sodium Chloride [Ns] 78 ml IV ONCE Heparin Sodium,Porcine Flush 500 unit IVFLUSH ONCE ondansetron ODT [Zofran ODT] 8 mg TRANSLINGU ONCE 07/05/20 10:00 Carcinoembryonic Antigen Routine Complete Blood Count Auto Diff Routine Comprehensive Met. Panel Routine Creatinine Urine Routine Magnesium Routine UA and rflx microscopic Routine 07/05/20 11:38 Acetaminophen [Tylenol] 650 mg PO ONCE ONE 08/02/20 00:00 Bevacizumab [Avastin] 400 mg Bevacizumab [Avastin] 175 mg 0.9 % Sodium Chloride [Ns] 77 ml IV ONCE Heparin Sodium,Porcine Flush 500 unit IVFLUSH ONCE ondansetron ODT [Zofran ODT] 8 mg TRANSLINGU ONCE 08/02/20 10:20 CEA [Carcinoembryonic Antigen] Routine Complete Blood Count Auto Diff Routine Comprehensive Met. Panel Routine Creatinine Urine Routine Magnesium Routine UA and rflx microscopic Routine 08/02/20 11:37 Acetaminophen [Tylenol] 650 mg PO ONCE ONE 08/30/20 00:00 Bevacizumab [Avastin] 400 mg Bevacizumab [Avastin] 175 mg 0.9 % Sodium Chloride [Ns] 77 ml IV ONCE Heparin Sodium,Porcine Flush 500 unit IVFLUSH ONCE ondansetron ODT [Zofran ODT] 8 mg TRANSLINGU ONCE 08/30/20 09:15 Carcinoembryonic Antigen Routine Complete Blood Count Auto Diff Routine Comprehensive Met. Panel Routine Magnesium Routine UA and rflx microscopic Routine 08/30/20 11:52 Creatinine Urine Routine 09/20/20 00:00 Bevacizumab [Avastin] 400 mg Bevacizumab [Avastin] 175 mg 0.9 % Sodium Chloride [Ns] 77 ml IV ONCE Heparin Sodium,Porcine Flush 500 unit IVFLUSH ONCE ondansetron ODT [Zofran ODT] 8 mg TRANSLINGU ONCE 09/20/20 09:44 Complete Blood Count Auto Diff Routine Comprehensive Met. Panel Routine 09/20/20 09:55 UA w Microscopic Stat 10/11/20 09:25 CBC W/AUTO DIFF [Complete Blood Count Auto Diff] Routine CMP [Comprehensive [place]. Panel Fast] Routine 10/11/20 09:38 UA w Microscopic Routine Laboratory Last Values WBC 5.5 X10*3/uL (4.8-10.8) 10/11/20 09:25 RBC 3.76 X10*6/uL (4.60-5.80) L 10/11/20 09:25 Hgb 13.6 g/dl (14.0-18.0) L 10/11/20 09:25 Hct 40.8 % (42-52) L 10/11/20 09:25 MCV 108.5 fL (80-98) H 10/11/20 09:25 MCH 36.2 pg (27.0-33.0) H 10/11/20 09:25 MCHC 33.3 g/dl (31.0-36.0) 10/11/20 09:25 RDW 18.7 % (11.0-16.0) H 10/11/20 09:25 Plt Count 145 X10*3/uL (160-400) L 10/11/20 09:25 MPV 11.6 fL (9.4-12.4) 10/11/20 09:25 Immature Gran % (Auto) 0.4 % (0.0-0.4) 10/11/20 09:25 Neut % (Auto) 65.6 % (45-73) 10/11/20 09:25 Lymph % (Auto) 18.2 % (20-40) L 10/11/20 09:25 [place] % (Auto) 11.4 % (2-11) H 10/11/20 09:25 Eos % (Auto) 4.2 % (0-4) H 10/11/20 09:25 Baso % (Auto) 0.2 % (0-2) 10/11/20 09:25 Neut # (Auto) 4.0 X10*3/uL (2.0-8.3) 05/19/20 10:55 Lymph # (Auto) 1.0 X10*3/uL (1.2-4.9) L 10/11/20 09:25 [place] # (Auto) 0.6 X10*3/uL (0.1-1.2) 10/11/20 09:25 Eos # (Auto) 0.2 X10*3/uL (0.0-0.4) 10/11/20 09:25 Baso # (Auto) 0.0 X10*3/uL (0.0-0.2) 10/11/20 09:25 Abs Immat Gran (auto) 0.02 X10*3/uL (0.00-0.03) 10/11/20 09:25 Absolute Neuts (auto) 3.6 X10*3/uL (2.0-8.3) 10/11/20 09:25 Absolute Nucleated RBC 0.000 X10*3/uL (0.0-0.012) 10/11/20 09:25 Nucleated RBC % (auto) 0.0 /100WBC (0.0-0.2) 10/11/20 09:25 Sodium 137 mmol/L (135-145) 10/11/20 09:25 Potassium 3.9 mmol/L (3.3-5.1) 10/11/20 09:25 Chloride 104 mmol/L (96-108) 10/11/20 09:25 Carbon Dioxide 24 mmol/L (22-29) 10/11/20 09:25 Anion Gap 13 (12-20) 10/11/20 09:25 BUN 10 mg/dL (9-16) 10/11/20 09:25 Creatinine 0.76 mg/dL (0.5-1.4) 10/11/20 09:25 Estim Creat Clear Calc 107.3 10/11/20 09:25 Estimated GFR > 60 10/11/20 09:25 Random Glucose 122 mg/dL (60-115) H 09/20/20 09:44 Fasting Glucose 98 mg/dL (60-99) 10/11/20 09:25 Calcium 8.9 mg/dL (8.4-10.2) 10/11/20 09:25 Magnesium 2.1 mg/dL (1.6-2.6) 08/30/20 09:15 Total Bilirubin 3.1 mg/dL (0.0-1.0) H 10/11/20 09:25 AST 43 U/L (5-37) H 10/11/20 09:25 ALT 27 U/L (0-40) 10/11/20 09:25 Alkaline Phosphatase 81 U/L (39-117) 10/11/20 09:25 Total Protein 7.0 g/dL (6.5-8.0) 10/11/20 09:25 Albumin 4.1 g/dL (3.5-5.0) 10/11/20 09:25 Carcinoembryonic Ag 2.70 mg/mL 08/30/20 09:15 Urine Color YELLOW 10/11/20 09:38 Urine Appearance CLEAR 10/11/20 09:38 Urine pH 5.5 (5.0-8.0) 10/11/20 09:38 Ur Specific [place] 1.025 (1.005-1.025) 10/11/20 09:38 Urine Protein NEG MG/DL (NEG-TRACE) 10/11/20 09:38 Urine Glucose (UA) NEG MG/DL (NEG) 10/11/20 09:38 Urine Ketones NEG MG/DL (NEG) 10/11/20 09:38 Urine Blood NEG (NEG) 10/11/20 09:38 Urine Nitrite NEG (NEG) 10/11/20 09:38 Ur Leukocyte Esterase NEG (NEG) 10/11/20 09:38 Urine RBC 0 /HPF (0) 10/11/20 09:38 Urine WBC 0 /HPF (0-4) 10/11/20 09:38 Ur Squamous Epith Cells NONE /LPF 10/11/20 09:38 Ur Renal Epithelial Cell 1+ /LPF 09/20/20 09:55 Urine Bacteria NONE /LPF 10/11/20 09:38 Urine Mucus 3+ /LPF 09/20/20 09:55 Urine Creatinine 116.28 mg/dL 08/30/20 11:52 Progress Note: A/P (1) Colon cancer metastasized to liver Status: Chronic Assessment and plan: 1. This is a 60-year-old gentleman, with metastatic colon carcinoma, with liver and lung metastases. Biopsy of the liver lesion, Moderately differentiated adenocarcinoma. KRAS and BRAF negative. NRAS negative, MSI proficient or MSI stable. HER2 and panTRK negative. Initial CEA elevated at 91. He developed bowel obstruction, palliative bypass ileostomy has been performed in November 2018. He started on mFOLFOX/Avastin regimen from 11/27/2018. His last treatment cycle 13 was on 05/14/2019. Now on maintenance Xeloda 1500 mg p.o. b.i.d. 2 weeks on/1 week off, along with bevacizumab Q 3 weeks starting 10/22/2019. He is tolerating treatment well. CEA level is now 5. CT chest/abdomen and pelvis with contrast performed end of November 2020 showed new tiny subcentimeter pulmonary nodules. No disease progression in the liver. Changes of fatty liver as well as changes of colitis. However patient does not have symptoms of abdominal pain, he does have 1-2 loose bowel movements a day. If his tumor marker continues to go up, he will be switched to irinotecan with bevacizumab. 2. 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 He has been tapered off prednisone and CellCept. He is also off the oxygen. 3. Chronic arthralgias. He is on MSContin 30 mg b.i.d. he is on oxycodone 5 mg for breakthrough pain 2 to 3 times a day. 4. Intermittent elevation of bilirubin, indirect bilirubinemia, probable Gilbert's syndrome. Follow-up in 3 weeks. - Time Spent With Patient Total time spent is greater than 50% in coordination of care (as documented) at patient's floor/unit and/or counseling patient: 15 - 24 minutes
[2020-12-13 09:17] LABS: MANUAL DIFF FLAG NO
[2020-12-13 09:22] LABS: Basophils Percent Auto 0.3 % (0-2); Eosinophils Absolute Auto 0.2 X10*3/uL (0.0-0.4); Eosinophils Percent Auto 3.8 % (0-4); Hematocrit 37.6 % (42-52); Hemoglobin 12.8 g/dl (14.0-18.0); Imm Gran Abs Auto 0.02 X10*3/uL (0.00-0.03); Imm Gran Pct Auto 0.3 % (0.0-0.4); Lymphocytes Percent Auto 16.5 % (20-40); Mean Corpuscular Hemoglobin 37.3 pg (27.0-33.0); Mean Corpuscular Volume 109.6 fL (80-98); Mean Platelet Volume 10.8 fL (9.4-12.4); Monocytes Absolute Auto 0.6 X10*3/uL (0.1-1.2); Monocytes Percent Auto 9.8 % (2-11); Neutrophils Absolute Auto 4.2 X10*3/uL (2.0-8.3); Neutrophils Percent Auto 69.3 % (45-73); Platelet Count 125 X10*3/uL (160-400); Red Blood Count 3.43 X10*6/uL (4.60-5.80); Red Cell Distribution Width 19.3 % (11.0-16.0)
[2020-12-13 09:48] LABS: Alanine Aminotransferase 20 U/L (0-40); Albumin Level 4.1 g/dL (3.5-5.0); Alkaline Phosphatase 73 U/L (39-117); Anion Gap 13 (12-20); Aspartate Amino Transferase 39 U/L (5-37); Bilirubin Total 2.9 mg/dL (0.0-1.0); Blood Urea Nitrogen 9 mg/dL (9-16); Calcium 9.1 mg/dL (8.4-10.2); Carbon Dioxide 22 mmol/L (22-29); Chloride 104 mmol/L (96-108); Creatinine Clr Calc Pharmacy 98.2; Estimated Glomerular Filt Rate > 60; Glucose Random 93 mg/dL (60-115); Potassium 3.8 mmol/L (3.3-5.1); Sodium 135 mmol/L (135-145); Total Protein 6.8 g/dL (6.5-8.0)
[2020-12-13 09:50] LABS: Glucose Urine UA NEG (NEG); Leukocyte Esterase Urine NEG (NEG); Nitrite Urine NEG (NEG); Urine Blood NEG (NEG); Urine Ketones NEG (NEG); Urine Protein NEG (NEG-TRACE)
[2020-12-13 10:16] LABS: Appearance Urine CLEAR; Color Urine YELLOW; RBC Urine 0 /HPF (0); WBC Urine 0 /HPF (0-4)
[2020-12-13] MEDS: SODIUM CHLORIDE 0.9% IV (11:30)
[2020-12-13] MEDS: BEVACIZUMAB IV (11:30)
[2020-12-13] MEDS: Heparin Sodium,Porcine Flush 500 UNIT/5 ML SYRINGE IVFLUSH (12:05)
--- NOTE | 2020-12-13 13:45 | MHC.HEMONC ---
Pt here for Cycle 20 day 1 of Avastin IV. Port accessed with blood return. Blood work drawn from port and sent to lab. 0.9%NS infusing. Lab work reviewed. Pt states he feels good today. Dr Mckee into see pt. Pre medicated with Zofran orally. Avastin IV given as ordered. Port flushed with heparin and de accessed. Follow up appointment made and given to pt.
[2021-01-03 09:05] VITALS: BP 133/62; PULSE 63; RESP 17; TEMP 36.5; O2SAT 95; BMI 22.8
--- NOTE | 2021-01-03 09:12 | HO.HEMONCPA ---
PA FOR IRINOTECAN NOT REQUIRED. DRUG COVERED UNDER [facility] FORMULARY PER KATARINA.
[2021-01-03 09:47] LABS: MANUAL DIFF FLAG NO
[2021-01-03 09:53] LABS: Basophils Percent Auto 0.2 % (0-2); Eosinophils Absolute Auto 0.1 X10*3/uL (0.0-0.4); Eosinophils Percent Auto 2.5 % (0-4); Hematocrit 37.5 % (42-52); Hemoglobin 12.9 g/dl (14.0-18.0); Imm Gran Abs Auto 0.02 X10*3/uL (0.00-0.03); Imm Gran Pct Auto 0.4 % (0.0-0.4); Lymphocytes Absolute Auto 0.9 X10*3/uL (1.2-4.9); Lymphocytes Percent Auto 16.6 % (20-40); Mean Corpuscular HGB Conc 34.4 g/dl (31.0-36.0); Mean Corpuscular Hemoglobin 37.9 pg (27.0-33.0); Mean Platelet Volume 11.4 fL (9.4-12.4); Monocytes Absolute Auto 0.9 X10*3/uL (0.1-1.2); Monocytes Percent Auto 15.4 % (2-11); Neutrophils Absolute Auto 3.6 X10*3/uL (2.0-8.3); Neutrophils Percent Auto 64.9 % (45-73); Platelet Count 128 X10*3/uL (160-400); Red Cell Distribution Width 19.2 % (11.0-16.0); White Blood Count 5.6 X10*3/uL (4.8-10.8)
[2021-01-03 09:56] LABS: Mean Corpuscular Volume 110.3 fL (80-98)
[2021-01-03 09:57] LABS: Glucose Urine UA NEG (NEG); Leukocyte Esterase Urine NEG (NEG); Nitrite Urine NEG (NEG); Specific Gravity - Urine 1.015 (1.005-1.025); Urine Blood NEG (NEG); Urine Ketones NEG (NEG); Urine Protein NEG (NEG-TRACE)
[2021-01-03 09:58] LABS: Appearance Urine CLEAR; Color Urine YELLOW
[2021-01-03 10:08] LABS: Mucus Urine TRACE /LPF; RBC Urine 0-2 /HPF (0); WBC Urine 0 /HPF (0-4)
[2021-01-03] MEDS: Acetaminophen 325 MG TABLET 650 MG PO (10:20)
[2021-01-03] MEDS: Famotidine/PF 20 MG/2 ML VIAL IVPUSH (10:21)
[2021-01-03] MEDS: ondansetron HCL/NS 16 MG/50 ML PIGGYBACK 200 MG IV (10:21)
[2021-01-03 10:42] LABS: Alanine Aminotransferase 22 U/L (0-40); Albumin Level 3.9 g/dL (3.5-5.0); Alkaline Phosphatase 75 U/L (39-117); Anion Gap 14 (12-20); Aspartate Amino Transferase 44 U/L (5-37); Bilirubin Total 3.8 mg/dL (0.0-1.0); Blood Urea Nitrogen 14 mg/dL (9-16); Calcium 8.9 mg/dL (8.4-10.2); Carbon Dioxide 21 mmol/L (22-29); Chloride 104 mmol/L (96-108); Creatinine Clr Calc Pharmacy 103.3; Estimated Glomerular Filt Rate > 60; Glucose Random 137 mg/dL (60-115); Potassium 3.9 mmol/L (3.3-5.1); Sodium 135 mmol/L (135-145); Total Protein 6.8 g/dL (6.5-8.0)
[2021-01-03 11:31] LABS: Magnesium 2.1 mg/dL (1.6-2.6)
[2021-01-03] MEDS: diphenhydrAMINE HCL 25 MG TABLET PO (12:11)
[2021-01-03] MEDS: dexAMETHasone sod phosphate/NS 12 MG/50 ML PIGGYBACK 200 MG IV (12:12)
[2021-01-03] MEDS: Atropine Sulfate 1 MG/ML VIAL 0.5 MG SUBCUT (12:29)
[2021-01-03] MEDS: BEVACIZUMAB IV (12:32)
[2021-01-03] MEDS: SODIUM CHLORIDE 0.9% IV (12:32)
[2021-01-03] MEDS: DEXTROSE 5% IV (13:11)
[2021-01-03] MEDS: IRINOTECAN HCL IV (13:11)
--- NOTE | 2021-01-03 15:28 | MHC.HEMONC ---
Pt here for Cycle 1 day 1 of Avastin and Irin[address] IV. Dr Mckee into see pt to discuss new plan for chemotherapy with Irinotecan. Pt agreeable to plan. Consent obtained. Port accessed with blood return. Lab draw from port-specimen to lab. Urinalysis obtained and sent to lab. Pt states he has loose stools currently which he controls with immodium. Also states he has some nausea from time to time. Notified of side effects of Irinotecan. Educational literature on Irinotecan given to pt. 0.9 % NS infusing via port. Lab results reviewed. Pre medicated with acetaminophen 650mg orally, benadryl 25mg orally, pepcid 20mg IV, decadron 12mg IV,Zofran 16mg IV, Atropine 0.5mg SC in right upper arm per pt request. Avastin IV and Irinotecan IV given as ordered. Tolerated first treatment of Irinotecan well with no immediate complaints of nausea or diarrhea. Port flushed with heparin and de accessed. Follow up appointments made for 14 days. Post chemotherapy discharge instructions given to pt. Instructed to call office if he feels ill or experiences side effects. Instructed to stop oral chemo therapy per Dr Mckee. Understands information given. Discharged home.
[2021-01-17 08:55] VITALS: BP 106/68; PULSE 87; RESP 18; TEMP 36.8; O2SAT 92; BMI 22.4
[2021-01-17 09:38] LABS: Eosinophils Absolute Auto 0.1 X10*3/uL (0.0-0.4); Eosinophils Percent Auto 9.5 % (0-4); Hematocrit 34.7 % (42-52); Hemoglobin 11.6 g/dl (14.0-18.0); Lymphocytes Absolute Auto 0.9 X10*3/uL (1.2-4.9); Lymphocytes Percent Auto 58.5 % (20-40); MANUAL DIFF FLAG SCAN; Mean Corpuscular HGB Conc 33.4 g/dl (31.0-36.0); Mean Corpuscular Hemoglobin 36.3 pg (27.0-33.0); Mean Corpuscular Volume 108.4 fL (80-98); Mean Platelet Volume 11.1 fL (9.4-12.4); Monocytes Absolute Auto 0.3 X10*3/uL (0.1-1.2); Monocytes Percent Auto 21.8 % (2-11); Neutrophils Absolute Auto 0.2 X10*3/uL (2.0-8.3); Neutrophils Percent Auto 10.2 % (45-73); Platelet Count 158 X10*3/uL (160-400); Red Cell Distribution Width 17.9 % (11.0-16.0); SCAN SMEAR FLAG 1
[2021-01-17 09:39] LABS: Glucose Urine UA NEG (NEG); Leukocyte Esterase Urine NEG (NEG); Nitrite Urine NEG (NEG); Specific Gravity - Urine 1.025 (1.005-1.025); Urine Blood NEG (NEG); Urine Ketones NEG (NEG); Urine Protein NEG (NEG-TRACE)
[2021-01-17 09:40] LABS: White Blood Count 1.5 X10*3/uL (4.8-10.8)
[2021-01-17 09:40] LABS: Appearance Urine CLEAR; Color Urine YELLOW
[2021-01-17 09:56] LABS: SLIDE REVIEW VERIFIED
[2021-01-17 09:56] LABS: Creatinine Urine 211.73 mg/dL
[2021-01-17 09:59] LABS: Alanine Aminotransferase 18 U/L (0-40); Albumin Level 3.7 g/dL (3.5-5.0); Alkaline Phosphatase 85 U/L (39-117); Anion Gap 13 (12-20); Aspartate Amino Transferase 29 U/L (5-37); Bilirubin Total 1.9 mg/dL (0.0-1.0); Blood Urea Nitrogen 8 mg/dL (9-16); Calcium 8.9 mg/dL (8.4-10.2); Carbon Dioxide 21 mmol/L (22-29); Chloride 107 mmol/L (96-108); Creatinine Clr Calc Pharmacy 97.7; Estimated Glomerular Filt Rate > 60; Glucose Random 107 mg/dL (60-115); Potassium 3.8 mmol/L (3.3-5.1); Sodium 137 mmol/L (135-145); Total Protein 6.4 g/dL (6.5-8.0)
--- NOTE | 2021-01-17 10:15 | HE.PHANOTE ---
PATIENT LABS TODAY SHOW LOW ANC (0.2). RECOMMENDATION IS TO HOLD UNTIL ANC RECOVERS TO >1.5; THEN DECREASE DOSE BY 50 MG/M2. DISCUSSED WITH MD AND PATIENT WILL BE DELAYED UNTIL NEXT WEEK. [facility] THEN DECREASED DOSE FROM 180 MG/M2 TO 130 MG/M2 FOR NEXT TREATMENT.
--- NOTE | 2021-01-17 10:29 | MHC.HEMONC ---
Pt here for Cycle 2 day 1 Irinotecan and Bevacizumab. Port accessed with blood return. Lab draw from port sent to lab. Urine specimen obtained and sent to lab.0.9% NS infusing. Pt states he felt nauseated and cramping for a few days after last treatment. Feels well today. Lab results reviewed, WBC 1.5, ANC 0.2 Dr Mckee viewed lab results-plan to not treat today. Chemo re- scheduled for 01/24/21. Pt notified of lab results and Dr Mckee's plan to not treat today and re-schedule chemo til January 24 2021. Port flushed with heparin and de-accessed. Follow up appointment made and given to patient. Discharged home.
[2021-01-24 08:45] VITALS: BP 122/62; PULSE 75; RESP 18; TEMP 36.4; O2SAT 93; BMI 22.8
[2021-01-24 09:12] LABS: MANUAL DIFF FLAG NO
[2021-01-24 09:14] LABS: Basophils Percent Auto 0.4 % (0-2); Eosinophils Absolute Auto 0.1 X10*3/uL (0.0-0.4); Eosinophils Percent Auto 2.4 % (0-4); Hematocrit 37.2 % (42-52); Hemoglobin 12.4 g/dl (14.0-18.0); Imm Gran Abs Auto 0.05 X10*3/uL (0.00-0.03); Lymphocytes Absolute Auto 1.2 X10*3/uL (1.2-4.9); Lymphocytes Percent Auto 24.1 % (20-40); Mean Corpuscular HGB Conc 33.3 g/dl (31.0-36.0); Mean Corpuscular Hemoglobin 35.7 pg (27.0-33.0); Mean Corpuscular Volume 107.2 fL (80-98); Mean Platelet Volume 10.8 fL (9.4-12.4); Monocytes Absolute Auto 0.9 X10*3/uL (0.1-1.2); Monocytes Percent Auto 16.9 % (2-11); Neutrophils Absolute Auto 2.8 X10*3/uL (2.0-8.3); Neutrophils Percent Auto 55.2 % (45-73); Platelet Count 190 X10*3/uL (160-400); Red Blood Count 3.47 X10*6/uL (4.60-5.80); Red Cell Distribution Width 16.5 % (11.0-16.0)
[2021-01-24 09:25] LABS: Glucose Urine UA NEG (NEG); Leukocyte Esterase Urine NEG (NEG); Nitrite Urine NEG (NEG); Urine Blood NEG (NEG); Urine Ketones NEG (NEG); Urine Protein NEG (NEG-TRACE)
[2021-01-24 09:27] LABS: Appearance Urine CLEAR; Color Urine YELLOW
[2021-01-24 09:36] LABS: RBC Urine 0 /HPF (0); Squamous Epithelial Cell Urine TRACE /LPF; WBC Urine 0-2 /HPF (0-4)
[2021-01-24 09:49] LABS: Alanine Aminotransferase 16 U/L (0-40); Albumin Level 3.9 g/dL (3.5-5.0); Alkaline Phosphatase 98 U/L (39-117); Anion Gap 16 (12-20); Aspartate Amino Transferase 32 U/L (5-37); Bilirubin Total 1.4 mg/dL (0.0-1.0); Blood Urea Nitrogen 8 mg/dL (9-16); Calcium 8.9 mg/dL (8.4-10.2); Carbon Dioxide 21 mmol/L (22-29); Chloride 105 mmol/L (96-108); Creatinine Clr Calc Pharmacy 96.8; Estimated Glomerular Filt Rate > 60; Glucose Random 97 mg/dL (60-115); Potassium 4.2 mmol/L (3.3-5.1); Sodium 138 mmol/L (135-145); Total Protein 6.7 g/dL (6.5-8.0)
--- NOTE | 2021-01-24 09:59 | HE.PHANOTE ---
PATIENT'S BILIRUBIN SLIGHTLY ELEVATED TODAY (1.4). RECOMMENDATION IS TO REDUCE BY 1 DOSING LEVEL IF BILI IS GREATER THAN ULN; DOSE IS ALREADY REDUCED TODAY DUE TO LOW ANC LAST WEEK. NO OTHER ADJUSTMENTS NECESSARY FOR TODAY.
[2021-01-24] MEDS: diphenhydrAMINE HCL 25 MG TABLET PO (10:12)
[2021-01-24] MEDS: Acetaminophen 325 MG TABLET 650 MG PO (10:12)
[2021-01-24] MEDS: Famotidine/PF 20 MG/2 ML VIAL IVPUSH (10:13)
[2021-01-24] MEDS: dexAMETHasone sod phosphate/NS 12 MG/50 ML PIGGYBACK 200 MG IV (10:16)
[2021-01-24] MEDS: ondansetron HCL/NS 16 MG/50 ML PIGGYBACK 200 MG IV (10:43)
[2021-01-24] MEDS: Atropine Sulfate 1 MG/ML VIAL 0.5 MG SUBCUT (11:01)
[2021-01-24] MEDS: IRINOTECAN HCL IV (11:08)
[2021-01-24] MEDS: DEXTROSE 5% IV (11:08)
--- NOTE | 2021-01-24 16:22 | MHC.HEMONC ---
Pt here for Cycle 2 day 1 Irinotecan, Avastin on hold until pt has dental work completed. Port accessed with blood return. Lab draw from port sent to lab. 0.9% NS infusing. Pt states he feels well today, states his hair is falling out. Lab results reviewed. Pt pre medicated with zofran 16mg IV, Benadryl 25mg orally, Pepcid 20mg IV, Decadron 12mg IV, tylenol 650mg orally. Irinotecan IV given as ordered-tolerated well. Port flushed with heparin and de accessed. Follow up appointments booked and given to pt. Discharged home
[2021-02-07 09:17] LABS: MANUAL DIFF FLAG NO
[2021-02-07 09:18] VITALS: BP 116/68; PULSE 79; RESP 18; TEMP 36.4; O2SAT 94; BMI 22.5
[2021-02-07 09:19] LABS: Basophils Percent Auto 0.2 % (0-2); Eosinophils Absolute Auto 0.3 X10*3/uL (0.0-0.4); Eosinophils Percent Auto 5.6 % (0-4); Hematocrit 36.9 % (42-52); Hemoglobin 12.3 g/dl (14.0-18.0); Imm Gran Abs Auto 0.01 X10*3/uL (0.00-0.03); Imm Gran Pct Auto 0.2 % (0.0-0.4); Lymphocytes Percent Auto 21.6 % (20-40); Mean Corpuscular HGB Conc 33.3 g/dl (31.0-36.0); Mean Corpuscular Hemoglobin 35.4 pg (27.0-33.0); Mean Corpuscular Volume 106.3 fL (80-98); Monocytes Absolute Auto 0.4 X10*3/uL (0.1-1.2); Monocytes Percent Auto 9.1 % (2-11); Neutrophils Absolute Auto 2.9 X10*3/uL (2.0-8.3); Neutrophils Percent Auto 63.3 % (45-73); Platelet Count 135 X10*3/uL (160-400); Red Blood Count 3.47 X10*6/uL (4.60-5.80); White Blood Count 4.6 X10*3/uL (4.8-10.8)
[2021-02-07 10:09] LABS: Glucose Urine UA NEG (NEG); Leukocyte Esterase Urine NEG (NEG); Nitrite Urine NEG (NEG); PH 5.5 (5.0-8.0); Specific Gravity - Urine 1.015 (1.005-1.025); Urine Blood NEG (NEG); Urine Ketones NEG (NEG); Urine Protein NEG (NEG-TRACE)
[2021-02-07 10:15] LABS: Appearance Urine CLEAR; Color Urine YELLOW
[2021-02-07 10:29] LABS: Creatinine Urine 107.35 mg/dL
[2021-02-07 10:58] LABS: Alanine Aminotransferase 30 U/L (0-40); Albumin Level 3.7 g/dL (3.5-5.0); Alkaline Phosphatase 94 U/L (39-117); Anion Gap 10 (12-20); Aspartate Amino Transferase 34 U/L (5-37); Bilirubin Total 2.1 mg/dL (0.0-1.0); Blood Urea Nitrogen 7 mg/dL (9-16); Calcium 8.7 mg/dL (8.4-10.2); Carbon Dioxide 24 mmol/L (22-29); Chloride 107 mmol/L (96-108); Creatinine Clr Calc Pharmacy 105.8; Estimated Glomerular Filt Rate > 60; Glucose Random 132 mg/dL (60-115); Potassium 3.8 mmol/L (3.3-5.1); Sodium 137 mmol/L (135-145); Total Protein 6.4 g/dL (6.5-8.0)
[2021-02-07] MEDS: diphenhydrAMINE HCL 25 MG TABLET PO (11:30)
[2021-02-07] MEDS: Acetaminophen 325 MG TABLET 650 MG PO (11:31)
[2021-02-07] MEDS: Famotidine/PF 20 MG/2 ML VIAL IVPUSH (11:32)
[2021-02-07] MEDS: ondansetron HCL/NS 16 MG/50 ML PIGGYBACK 200 MG IV (11:35)
[2021-02-07] MEDS: dexAMETHasone sod phosphate/NS 12 MG/50 ML PIGGYBACK 200 MG IV (11:56)
[2021-02-07] MEDS: Atropine Sulfate 1 MG/ML VIAL 0.5 MG SUBCUT (12:15)
[2021-02-07] MEDS: BEVACIZUMAB IV (12:20)
[2021-02-07] MEDS: SODIUM CHLORIDE 0.9% IV (12:20)
[2021-02-07] MEDS: DEXTROSE 5% IV (13:02)
[2021-02-07] MEDS: IRINOTECAN HCL IV (13:02)
--- NOTE | 2021-02-07 14:59 | MHC.HEMONC ---
Pt here for Cycle 3 day 1 Avastin/Irinotecan. Port accessed with blood return, labs drawn from port-specimen to lab. 0.9% NS infusing. Pt states he has some fatigue which he manages with frequent rest periods. States he does not have a dentist appointment as yet-still waiting for appointment for tooth repair. Pre medicated with tylenol 650mg orally, zofran 16mg IV, benadryl 25mg orally, pepcid 20mg IV, and Decadron 12mg IV. Avastin and Irinotecan IV given as ordered-tolerated well. Port flushed with heparin and de accessed. Follow up appointment scheduled and given to pt. Discharge packet given. Discharged home
[2021-02-21 08:52] VITALS: BP 128/72; PULSE 78; RESP 18; TEMP 36.4; O2SAT 93; BMI 26.7
[2021-02-21 09:21] LABS: MANUAL DIFF FLAG NO
[2021-02-21 09:23] LABS: Basophils Percent Auto 0.4 % (0-2); Eosinophils Absolute Auto 0.2 X10*3/uL (0.0-0.4); Eosinophils Percent Auto 3.2 % (0-4); Hematocrit 37.2 % (42-52); Hemoglobin 12.2 g/dl (14.0-18.0); Imm Gran Abs Auto 0.01 X10*3/uL (0.00-0.03); Imm Gran Pct Auto 0.2 % (0.0-0.4); Lymphocytes Absolute Auto 0.9 X10*3/uL (1.2-4.9); Mean Corpuscular HGB Conc 32.8 g/dl (31.0-36.0); Mean Corpuscular Hemoglobin 34.1 pg (27.0-33.0); Mean Corpuscular Volume 103.9 fL (80-98); Mean Platelet Volume 10.9 fL (9.4-12.4); Monocytes Absolute Auto 0.6 X10*3/uL (0.1-1.2); Neutrophils Absolute Auto 3.3 X10*3/uL (2.0-8.3); Neutrophils Percent Auto 66.2 % (45-73); Platelet Count 168 X10*3/uL (160-400); Red Blood Count 3.58 X10*6/uL (4.60-5.80); Red Cell Distribution Width 15.6 % (11.0-16.0)
[2021-02-21 09:28] LABS: Glucose Urine UA NEG (NEG); Leukocyte Esterase Urine NEG (NEG); Nitrite Urine NEG (NEG); Specific Gravity - Urine 1.015 (1.005-1.025); Urine Blood NEG (NEG); Urine Ketones NEG (NEG); Urine Protein NEG (NEG-TRACE)
[2021-02-21 09:30] LABS: Appearance Urine CLEAR; Color Urine YELLOW
[2021-02-21 09:36] LABS: RBC Urine 0-2 /HPF (0); WBC Urine 0-2 /HPF (0-4)
[2021-02-21 09:51] LABS: Alanine Aminotransferase 27 U/L (0-40); Albumin Level 3.8 g/dL (3.5-5.0); Alkaline Phosphatase 91 U/L (39-117); Anion Gap 14 (12-20); Aspartate Amino Transferase 34 U/L (5-37); Bilirubin Total 1.4 mg/dL (0.0-1.0); Blood Urea Nitrogen 8 mg/dL (9-16); Calcium 9.1 mg/dL (8.4-10.2); Carbon Dioxide 22 mmol/L (22-29); Chloride 107 mmol/L (96-108); Creatinine Clr Calc Pharmacy 111.7; Estimated Glomerular Filt Rate > 60; Glucose Random 132 mg/dL (60-115); Sodium 139 mmol/L (135-145); Total Protein 6.7 g/dL (6.5-8.0)
[2021-02-21] MEDS: Acetaminophen 325 MG TABLET 650 MG PO (10:06)
[2021-02-21] MEDS: diphenhydrAMINE HCL 25 MG TABLET PO (10:06)
[2021-02-21] MEDS: Famotidine/PF 20 MG/2 ML VIAL IVPUSH (10:06)
[2021-02-21] MEDS: ondansetron HCL/NS 16 MG/50 ML PIGGYBACK 200 MG IV (10:10)
[2021-02-21] MEDS: dexAMETHasone sod phosphate/NS 12 MG/50 ML PIGGYBACK 200 MG IV (10:38)
[2021-02-21] MEDS: Atropine Sulfate 1 MG/ML VIAL 0.5 MG SUBCUT (10:52)
[2021-02-21] MEDS: BEVACIZUMAB IV (11:00)
[2021-02-21] MEDS: SODIUM CHLORIDE 0.9% IV (11:00)
--- NOTE | 2021-02-21 11:30 | P.PNHO_ITS ---
Medical Summary - Medical Summary Date of Service: 02/21/21 Chief complaint: Follow-up Medical Summary: Metastatic colon cancer diagnosed in October 2018. Presented with abdominal pain, 30 pound weight loss and severe pain. He had abnormal colonoscopy in 2009. He was told he needed a repeat colonoscopy in 5 years but he did not go for testing. CT abdomen/pelvis with IV contrast shows multiple areas of wall thickening in the sigmoid colon as well as thickening and enhancement of cecum, terminal ileum. Long segment of wall thickening of the distal transverse colon and left colon. Enlarged mesenteric and retroperitoneal lymph nodes, multiple liver metastasis and lung metastasis, all of these worrisome for metastatic colorectal malignancy. 11/01/18-Core biopsy of the right liver mass, moderately differentiated adenocarcinoma consistent with colorectal primary. KRAS mutation not detected BRAF mutation not detected. NRAS negative, MSI proficient or MSI stable. He developed bowel obstruction, palliative bypass ileostomy has been performed in November 2018. He started on mFOLFOX/Avastin regimen from 11/27/2018. His last treatment cycle 13 was on 05/14/2019. 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 Repeat CT abdomen/pelvis on 09/18/2019 showed further decrease in size of liver metastasis. Started maintenance treatment with Xeloda and bevacizumab in October 2019. Interval History Interval history: patient is here in follow-up as well as scheduled treatment. He is doing well and has no complaints today. He states that when he does not take the pain medication he has significant pain around the stoma. He denies any nausea or emesis. No fever or chills. For the 1st week after treatment he takes Imodium now and then for diarrhea. No hematochezia melena. Review of Systems - Constitutional Reports as per HPI, Reports no additional constitutional complaints - Cardiovascular Reports no additional cardiovascular complaints - Respiratory Reports no additional respiratory complaints - Gastrointestinal Reports no additional gastrointestinal complaints FOR[facility]LY [facility] Medical History: Medical History (Last Updated 02/04/21 @ 13:55 by Shravan Mcginnis MD) Chronic respiratory failure ILD (interstitial lung disease) Pulmonary fibrosis Pulmonary nodule Tubular adenoma Family History: Family History (Last Updated 05/19/20 @ 16:28 by Simona Alanis RN) Son Cystic fibrosis Brother Esophageal cancer Maternal Aunt Lung cancer Surgical History: Surgical History (Last Updated 05/19/20 @ 16:24 by Simona Alanis RN) H/O knee surgery Social History: Social History (Last Updated 05/19/20 @ 16:27 by Simona Alanis RN) Living Situation History: Household Members: Spouse Household Members: Children Alcohol History Quit Date: Year quit: 2019 Alcohol History Details: Alcohol intake frequency: former alcohol drinker Substance Use History: Use of substances other than those prescribed or required for medical reasons : No Advance Directives: Advance Directives: Yes Advance Directives Information Provided: No Advance Directives on File: Yes Advance Directives Date on File: 10/31/18 Nutrition Assessment: Recently lost weight without trying: No Occupation Assessmet: service: No Current occupational status: employed Current occupation: [employer] Oncology 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 Performance Status ECOG Performance Status: 1 Home Medications and Allergies Current Medications: Current Medications Generic Name Dose Route Start Last Admin Trade Name Freq PRN Reason Stop Dose Admin Acetaminophen 650 mg 02/21/21 00:00 02/21/21 10:06 Acetaminophen 325 Mg Tablet PO 02/21/21 23:59 650 mg ONCE PINEDA Administration Atropine Sulfate 0.5 mg 02/21/21 00:00 02/21/21 10:52 Atropine Sulfate 1 Mg/Ml Vial SUBCUT 02/21/21 23:59 0.5 mg ONCE PINEDA Administration Diphenhydramine HCl 25 mg 02/21/21 00:00 02/21/21 10:06 Diphenhydramine Hcl 25 Mg Tablet PO 02/21/21 23:59 25 mg ONCE PINEDA Administration Famotidine 20 mg 02/21/21 00:00 02/21/21 10:06 Famotidine/Pf 20 Mg/2 Ml Vial IVPUSH 02/21/21 23:59 20 mg ONCE PINEDA Administration Irinotecan HCl 250 mg/ 512.5 mls @ 341.667 mls/hr 02/07/21 00:00 02/07/21 14:32 Dextrose IV Infused ONCE PINEDA Infusion Dexamethasone Sodium Phosphate 12 mg in 50 mls @ 200 mls/hr 02/21/21 00:00 02/21/21 10:38 Decadron IV 02/21/21 23:59 200 mls/hr ONCE PINEDA Administration Ondansetron HCl 16 mg in 50 mls @ 200 mls/hr 02/21/21 00:00 02/21/21 10:25 Zofran IV 02/21/21 23:59 Infused ONCE PINEDA Infusion Bevacizumab 400 mg/ 100 mls @ 200 mls/hr 02/21/21 00:00 02/21/21 11:00 Bevacizumab 34.5 mg/ Sodium IV 02/21/21 23:59 200 mls/hr Chloride ONCE PINEDA Administration Irinotecan HCl 200 mg/ 512.5 mls @ 341.667 mls/hr 02/21/21 00:00 Irinotecan HCl 50 mg/ Dextrose IV 02/21/21 23:59 ONCE PINEDA Home Medications Medication Instructions Recorded Confirmed Type loperamide [Imodium] 2 mg PO QID PRN 05/19/20 02/07/21 History Allergies Allergy/AdvReac Type Severity Reaction Status Date / Time prednisone [PREDNISONE] AdvReac Intermediate Psychosis Verified 02/07/21 09:40 Exam Vital signs: Vital Signs Temp 97.6 F 02/21/21 08:52 Pulse 78 02/21/21 08:52 Resp 18 02/21/21 08:52 BP 128/72 02/21/21 08:52 Pulse Ox 93 02/21/21 08:52 Intake & Output 02/20/21 02/21/21 02/21/21 18:59 06:59 18:59 Intake Total 50 / 50 Balance 50 / 50 Intake: Intake, IV Amount 50 / 50 ondansetron HCL/NS 16 mg In 50 50 / 50 ml @ 200 mls/hr IV ONCE PINEDA Rx# :[id number] Other: Weight 86.9 kg [place] Weight in Grams 44751 Weight 86.9 kg Body Mass Index 26.7 - Constitutional Present: no acute distress - Routine HEENT Exam Head: Present: normal inspection - Routine Neck Exam Present: full ROM. Absent: lymphadenopathy - Routine Respiratory Exam Present: CTAB - Routine Cardiovascular Exam Cardiovascular: Present: RRR, S1, S2 - Routine Abdominal Exam Present: normal bowel sounds, soft. Absent: mass, organomegaly - Routine Extremities Exam Present: full ROM. Absent: calf tenderness, pedal edema - Routine Skin Exam Present: intact. Absent: cyanosis, erythema - Routine Neurological Exam Present: alert, oriented X3 Data - Labs CBC & Chem 7: 02/21/21 09:10 02/21/21 09:10 Labs: 05/19/20 00:00 Bevacizumab [Avastin] 400 mg Bevacizumab [Avastin] 150 mg 0.9 % Sodium Chloride [Ns] 78 ml IV ONCE Heparin Sodium,Porcine Flush 500 unit IVFLUSH ONCE ondansetron ODT [Zofran ODT] 8 mg TRANSLINGU ONCE 05/19/20 10:55 Complete Blood Count Auto Diff Routine Comprehensive Met. Panel Routine Magnesium Routine 05/19/20 11:00 Creatinine Urine Routine UA and rflx microscopic Routine 06/09/20 00:00 Bevacizumab [Avastin] 400 mg Bevacizumab [Avastin] 150 mg 0.9 % Sodium Chloride [Ns] 78 ml IV ONCE Heparin Sodium,Porcine Flush 500 unit IVFLUSH ONCE ondansetron ODT [Zofran ODT] 8 mg PO ONCE 06/09/20 09:40 Complete Blood Count Auto Diff Routine Comprehensive Met. Panel Routine Creatinine Urine Routine Magnesium Routine UA and rflx microscopic Routine 06/09/20 09:59 Acetaminophen [Tylenol] 650 mg PO ONCE ONE 07/05/20 00:00 Bevacizumab [Avastin] 400 mg Bevacizumab [Avastin] 150 mg 0.9 % Sodium Chloride [Ns] 78 ml IV ONCE Heparin Sodium,Porcine Flush 500 unit IVFLUSH ONCE ondansetron ODT [Zofran ODT] 8 mg TRANSLINGU ONCE 07/05/20 10:00 Carcinoembryonic Antigen Routine Complete Blood Count Auto Diff Routine Comprehensive Met. Panel Routine Creatinine Urine Routine Magnesium Routine UA and rflx microscopic Routine 07/05/20 11:38 Acetaminophen [Tylenol] 650 mg PO ONCE ONE 08/02/20 00:00 Bevacizumab [Avastin] 400 mg Bevacizumab [Avastin] 175 mg 0.9 % Sodium Chloride [Ns] 77 ml IV ONCE Heparin Sodium,Porcine Flush 500 unit IVFLUSH ONCE ondansetron ODT [Zofran ODT] 8 mg TRANSLINGU ONCE 08/02/20 10:20 CEA [Carcinoembryonic Antigen] Routine Complete Blood Count Auto Diff Routine Comprehensive Met. Panel Routine Creatinine Urine Routine Magnesium Routine UA and rflx microscopic Routine 08/02/20 11:37 Acetaminophen [Tylenol] 650 mg PO ONCE ONE 08/30/20 00:00 Bevacizumab [Avastin] 400 mg Bevacizumab [Avastin] 175 mg 0.9 % Sodium Chloride [Ns] 77 ml IV ONCE Heparin Sodium,Porcine Flush 500 unit IVFLUSH ONCE ondansetron ODT [Zofran ODT] 8 mg TRANSLINGU ONCE 08/30/20 09:15 Carcinoembryonic Antigen Routine Complete Blood Count Auto Diff Routine Comprehensive Met. Panel Routine Magnesium Routine UA and rflx microscopic Routine 08/30/20 11:52 Creatinine Urine Routine 09/20/20 00:00 Bevacizumab [Avastin] 400 mg Bevacizumab [Avastin] 175 mg 0.9 % Sodium Chloride [Ns] 77 ml IV ONCE Heparin Sodium,Porcine Flush 500 unit IVFLUSH ONCE ondansetron ODT [Zofran ODT] 8 mg TRANSLINGU ONCE 09/20/20 09:44 Complete Blood Count Auto Diff Routine Comprehensive Met. Panel Routine 09/20/20 09:55 UA w Microscopic Stat 10/11/20 09:25 CBC W/AUTO DIFF [Complete Blood Count Auto Diff] Routine CMP [Comprehensive [place]. Panel Fast] Routine 10/11/20 09:38 UA w Microscopic Routine Laboratory Last Values WBC 5.5 X10*3/uL (4.8-10.8) 10/11/20 09:25 RBC 3.76 X10*6/uL (4.60-5.80) L 10/11/20 09:25 Hgb 13.6 g/dl (14.0-18.0) L 10/11/20 09:25 Hct 40.8 % (42-52) L 10/11/20 09:25 MCV 108.5 fL (80-98) H 10/11/20 09:25 MCH 36.2 pg (27.0-33.0) H 10/11/20 09:25 MCHC 33.3 g/dl (31.0-36.0) 10/11/20 09:25 RDW 18.7 % (11.0-16.0) H 10/11/20 09:25 Plt Count 145 X10*3/uL (160-400) L 10/11/20 09:25 MPV 11.6 fL (9.4-12.4) 10/11/20 09:25 Immature Gran % (Auto) 0.4 % (0.0-0.4) 10/11/20 09:25 Neut % (Auto) 65.6 % (45-73) 10/11/20 09:25 Lymph % (Auto) 18.2 % (20-40) L 10/11/20 09:25 [place] % (Auto) 11.4 % (2-11) H 10/11/20 09:25 Eos % (Auto) 4.2 % (0-4) H 10/11/20 09:25 Baso % (Auto) 0.2 % (0-2) 10/11/20 09:25 Neut # (Auto) 4.0 X10*3/uL (2.0-8.3) 05/19/20 10:55 Lymph # (Auto) 1.0 X10*3/uL (1.2-4.9) L 10/11/20 09:25 [place] # (Auto) 0.6 X10*3/uL (0.1-1.2) 10/11/20 09:25 Eos # (Auto) 0.2 X10*3/uL (0.0-0.4) 10/11/20 09:25 Baso # (Auto) 0.0 X10*3/uL (0.0-0.2) 10/11/20 09:25 Abs Immat Gran (auto) 0.02 X10*3/uL (0.00-0.03) 10/11/20 09:25 Absolute Neuts (auto) 3.6 X10*3/uL (2.0-8.3) 10/11/20 09:25 Absolute Nucleated RBC 0.000 X10*3/uL (0.0-0.012) 10/11/20 09:25 Nucleated RBC % (auto) 0.0 /100WBC (0.0-0.2) 10/11/20 09:25 Sodium 137 mmol/L (135-145) 10/11/20 09:25 Potassium 3.9 mmol/L (3.3-5.1) 10/11/20 09:25 Chloride 104 mmol/L (96-108) 10/11/20 09:25 Carbon Dioxide 24 mmol/L (22-29) 10/11/20 09:25 Anion Gap 13 (12-20) 10/11/20 09:25 BUN 10 mg/dL (9-16) 10/11/20 09:25 Creatinine 0.76 mg/dL (0.5-1.4) 10/11/20 09:25 Estim Creat Clear Calc 107.3 10/11/20 09:25 Estimated GFR > 60 10/11/20 09:25 Random Glucose 122 mg/dL (60-115) H 09/20/20 09:44 Fasting Glucose 98 mg/dL (60-99) 10/11/20 09:25 Calcium 8.9 mg/dL (8.4-10.2) 10/11/20 09:25 Magnesium 2.1 mg/dL (1.6-2.6) 08/30/20 09:15 Total Bilirubin 3.1 mg/dL (0.0-1.0) H 10/11/20 09:25 AST 43 U/L (5-37) H 10/11/20 09:25 ALT 27 U/L (0-40) 10/11/20 09:25 Alkaline Phosphatase 81 U/L (39-117) 10/11/20 09:25 Total Protein 7.0 g/dL (6.5-8.0) 10/11/20 09:25 Albumin 4.1 g/dL (3.5-5.0) 10/11/20 09:25 Carcinoembryonic Ag 2.70 mg/mL 08/30/20 09:15 Urine Color YELLOW 10/11/20 09:38 Urine Appearance CLEAR 10/11/20 09:38 Urine pH 5.5 (5.0-8.0) 10/11/20 09:38 Ur Specific Boyd 1.025 (1.005-1.025) 10/11/20 09:38 Urine Protein NEG MG/DL (NEG-TRACE) 10/11/20 09:38 Urine Glucose (UA) NEG MG/DL (NEG) 10/11/20 09:38 Urine Ketones NEG MG/DL (NEG) 10/11/20 09:38 Urine Blood NEG (NEG) 10/11/20 09:38 Urine Nitrite NEG (NEG) 10/11/20 09:38 Ur Leukocyte Esterase NEG (NEG) 10/11/20 09:38 Urine RBC 0 /HPF (0) 10/11/20 09:38 Urine WBC 0 /HPF (0-4) 10/11/20 09:38 Ur Squamous Epith Cells NONE /LPF 10/11/20 09:38 Ur Renal Epithelial Cell 1+ /LPF 09/20/20 09:55 Urine Bacteria NONE /LPF 10/11/20 09:38 Urine Mucus 3+ /LPF 09/20/20 09:55 Urine Creatinine 116.28 mg/dL 08/30/20 11:52 Progress Note: A/P (1) Colon cancer metastasized to liver Status: Chronic Assessment and plan: 1. This is a 60-year-old gentleman, with metastatic colon carcinoma, with liver and lung metastases. Biopsy of the liver lesion, Moderately differentiated emma nocarcinoma. KRAS and BRAF negative. NRAS negative, MSI proficient or MSI stable. HER2 and panTRK negative. Initial CEA elevated at 91. He developed bowel obstruction, palliative bypass ileostomy has been performed in November 2018. He started on mFOLFOX/Avastin regimen from 11/27/2018. His last treatment cycle 13 was on 05/14/2019. He was on maintenance Xeloda 1500 mg p.o. b.i.d. 2 weeks on/1 week off, along with bevacizumab Q 3 weeks starting 10/22/2019 until 12/13/2020. Rising CEA as well as imaging in November 2020 showed evidence of progressive disease. He started irinotecan with bevacizumab from December 2020. He is tolerating treatment well. 2. 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 He has been tapered off prednisone and CellCept. He is also off the oxygen. 3. Chronic arthralgias. He is on MSContin 30 mg b.i.d. he is on oxycodone 5 mg for breakthrough pain 2 to 3 times a day. 4. Intermittent elevation of bilirubin, indirect bilirubinemia, probable Gilbert's syndrome. Follow-up in 3 weeks. - Time Spent With Patient Time Spent with Patient (in minutes): 15 Comment: I spent 10 minutes with patient [id number] encounter and an additional 5 minutes reviewing clinical data.
[2021-02-21] MEDS: DEXTROSE 5% IV (11:46)
[2021-02-21] MEDS: IRINOTECAN HCL IV (11:46)
--- NOTE | 2021-02-21 12:52 | HE.PHANOTE ---
SPOKE TO MD ABOUT ELEVATED BILIBUIN; SHE WOULD LIKE TO KEEP AT SAME DOSING LEVEL
--- NOTE | 2021-02-21 13:10 | MHC.HEMONC ---
Pt here for Cycle 4 Day 1 Avastin/Irinotecan IV and MD visit. Port accessed with blood return. Labs drawn from port-specimen to lab. 0.9% NS infusing. Pt states he has some fatigue and occasional diarrhea which he manages with prescribed medications. Dr Mckee into see pt. Lab results reviewed. Pre medicated with Zofran 16mg IV, Benadryl 25mg orally, Pepcid 20mg IV, Tylenol 650mg orally, Decadron 12mg IV, Atropine 0.5mg SC in right arm. Avastin and Irinotecan given as ordered-tolerated well. Port flushed with Heparin. Port de accessed. Follow up appointments scheduled. Discharge packet given. Discharged home
[2021-03-07 09:06] VITALS: BP 126/59; PULSE 86; RESP 17; TEMP 36.3; O2SAT 94; BMI 22.4
[2021-03-07 09:20] LABS: MANUAL DIFF FLAG NO
[2021-03-07 09:24] LABS: Basophils Percent Auto 0.6 % (0-2); Eosinophils Absolute Auto 0.1 X10*3/uL (0.0-0.4); Eosinophils Percent Auto 3.5 % (0-4); Hematocrit 37.6 % (42-52); Hemoglobin 11.9 g/dl (14.0-18.0); Imm Gran Abs Auto 0.01 X10*3/uL (0.00-0.03); Imm Gran Pct Auto 0.3 % (0.0-0.4); Lymphocytes Percent Auto 29.8 % (20-40); Mean Corpuscular HGB Conc 31.6 g/dl (31.0-36.0); Mean Corpuscular Hemoglobin 32.6 pg (27.0-33.0); Mean Platelet Volume 12.1 fL (9.4-12.4); Monocytes Absolute Auto 0.4 X10*3/uL (0.1-1.2); Monocytes Percent Auto 12.3 % (2-11); Neutrophils Absolute Auto 1.8 X10*3/uL (2.0-8.3); Neutrophils Percent Auto 53.5 % (45-73); Platelet Count 131 X10*3/uL (160-400); Red Blood Count 3.65 X10*6/uL (4.60-5.80); Red Cell Distribution Width 15.7 % (11.0-16.0); White Blood Count 3.4 X10*3/uL (4.8-10.8)
[2021-03-07 09:44] LABS: Glucose Urine UA NEG (NEG); Leukocyte Esterase Urine NEG (NEG); Nitrite Urine NEG (NEG); Urine Blood NEG (NEG); Urine Ketones NEG (NEG); Urine Protein NEG (NEG-TRACE)
[2021-03-07 09:48] LABS: Appearance Urine CLEAR; Color Urine YELLOW
[2021-03-07 09:52] LABS: Creatinine Urine 153.37 mg/dL
[2021-03-07 09:53] LABS: Alanine Aminotransferase 28 U/L (0-40); Albumin Level 3.8 g/dL (3.5-5.0); Alkaline Phosphatase 88 U/L (39-117); Anion Gap 13 (12-20); Aspartate Amino Transferase 34 U/L (5-37); Bilirubin Total 1.8 mg/dL (0.0-1.0); Blood Urea Nitrogen 11 mg/dL (9-16); Calcium 8.8 mg/dL (8.4-10.2); Carbon Dioxide 23 mmol/L (22-29); Chloride 108 mmol/L (96-108); Creatinine Clr Calc Pharmacy 96.3; Estimated Glomerular Filt Rate > 60; Glucose Random 132 mg/dL (60-115); Magnesium 1.8 mg/dL (1.6-2.6); Potassium 3.8 mmol/L (3.3-5.1); Sodium 140 mmol/L (135-145); Total Protein 6.5 g/dL (6.5-8.0)
[2021-03-07] MEDS: Acetaminophen 325 MG TABLET 650 MG PO (10:33)
[2021-03-07] MEDS: diphenhydrAMINE HCL 25 MG TABLET PO (10:33)
[2021-03-07] MEDS: Famotidine/PF 20 MG/2 ML VIAL IVPUSH (10:34)
[2021-03-07] MEDS: dexAMETHasone sod phosphate/NS 12 MG/50 ML PIGGYBACK 200 MG IV (11:09)
[2021-03-07] MEDS: Atropine Sulfate 1 MG/ML VIAL 0.5 MG SUBCUT (13:10)
[2021-03-07] MEDS: SODIUM CHLORIDE 0.9% IV (13:13)
[2021-03-07] MEDS: BEVACIZUMAB IV (13:13)
[2021-03-07] MEDS: DEXTROSE 5% IV (13:58)
[2021-03-07] MEDS: IRINOTECAN HCL IV (13:58)
--- NOTE | 2021-03-07 15:51 | MHC.HEMONC ---
Pt here for Cycle 5 day 1 Irinotecan/Bevacizumab. Port accessed with blood return, labs drawn from port-specimen and UA sent to lab. 0.9% NS infusing. Pt states he feels well today-states he has 2-3/10 pain. States he is taking oxycontin as needed for pain. Lab results reviewed. Pre medicated with Zofran 16 mg IV, Benadryl 25mg orally, Pepcid 20mg IV, Decadron 12mg IV,Tylenol 650mg orally, Atropine 0.5mg SC. Bevacizumab and Irinotecan IV given as ordered-tolerated well. Port flushed with heparin and de accessed. Follow up appointments scheduled. Discharge packet given. Discharged home.
--- NOTE | 2021-03-17 16:13 | MHC.HEMONC ---
Received call from pt's Selena requesting refill of MS Contin 30mg BID for her . states has pain in lower back and rib cage-states pt takes MS Contin twice a day.
[2021-03-21 09:12] VITALS: BP 99/61; PULSE 76; RESP 17; TEMP 36.2; O2SAT 94; BMI 22.7
[2021-03-21 09:35] LABS: MANUAL DIFF FLAG NO
[2021-03-21 09:38] LABS: Glucose Urine UA NEG (NEG); Leukocyte Esterase Urine NEG (NEG); Nitrite Urine NEG (NEG); Specific Gravity - Urine 1.015 (1.005-1.025); Urine Blood NEG (NEG); Urine Ketones NEG (NEG); Urine Protein NEG (NEG-TRACE)
[2021-03-21 09:40] LABS: Basophils Percent Auto 0.3 % (0-2); Eosinophils Absolute Auto 0.1 X10*3/uL (0.0-0.4); Eosinophils Percent Auto 3.1 % (0-4); Hematocrit 35.4 % (42-52); Hemoglobin 11.3 g/dl (14.0-18.0); Imm Gran Abs Auto 0.01 X10*3/uL (0.00-0.03); Imm Gran Pct Auto 0.3 % (0.0-0.4); Lymphocytes Absolute Auto 0.7 X10*3/uL (1.2-4.9); Lymphocytes Percent Auto 17.6 % (20-40); Mean Corpuscular HGB Conc 31.9 g/dl (31.0-36.0); Mean Corpuscular Volume 100.3 fL (80-98); Mean Platelet Volume 11.3 fL (9.4-12.4); Monocytes Absolute Auto 0.5 X10*3/uL (0.1-1.2); Monocytes Percent Auto 11.5 % (2-11); Neutrophils Absolute Auto 2.6 X10*3/uL (2.0-8.3); Neutrophils Percent Auto 67.2 % (45-73); Platelet Count 136 X10*3/uL (160-400); Red Blood Count 3.53 X10*6/uL (4.60-5.80); Red Cell Distribution Width 15.5 % (11.0-16.0); White Blood Count 3.9 X10*3/uL (4.8-10.8)
[2021-03-21 09:55] LABS: Appearance Urine CLEAR; Color Urine YELLOW
[2021-03-21 10:16] LABS: Creatinine Urine 107.31 mg/dL
[2021-03-21 10:18] LABS: Alanine Aminotransferase 29 U/L (0-40); Albumin Level 3.7 g/dL (3.5-5.0); Alkaline Phosphatase 105 U/L (39-117); Anion Gap 12 (12-20); Aspartate Amino Transferase 34 U/L (5-37); Bilirubin Total 1.8 mg/dL (0.0-1.0); Blood Urea Nitrogen 6 mg/dL (9-16); Calcium 8.7 mg/dL (8.4-10.2); Carbon Dioxide 23 mmol/L (22-29); Chloride 107 mmol/L (96-108); Creatinine Clr Calc Pharmacy 105.4; Estimated Glomerular Filt Rate > 60; Glucose Random 133 mg/dL (60-115); Magnesium 1.9 mg/dL (1.6-2.6); Potassium 3.7 mmol/L (3.3-5.1); Sodium 138 mmol/L (135-145); Total Protein 6.2 g/dL (6.5-8.0)
[2021-03-21] MEDS: Acetaminophen 325 MG TABLET 650 MG PO (10:34)
[2021-03-21] MEDS: diphenhydrAMINE HCL 25 MG TABLET PO (10:35)
[2021-03-21] MEDS: Famotidine/PF 20 MG/2 ML VIAL IVPUSH (10:36)
[2021-03-21] MEDS: dexAMETHasone sod phosphate/NS 12 MG/50 ML PIGGYBACK 200 MG IV (11:07)
[2021-03-21] MEDS: Atropine Sulfate 1 MG/ML VIAL 0.5 MG SUBCUT (11:26)
[2021-03-21] MEDS: SODIUM CHLORIDE 0.9% IV (11:29)
[2021-03-21] MEDS: BEVACIZUMAB IV (11:29)
[2021-03-21] MEDS: IRINOTECAN HCL IV (12:17)
[2021-03-21] MEDS: DEXTROSE 5% IV (12:17)
--- NOTE | 2021-03-21 14:06 | MHC.HEMONC ---
Pt here for Cycle 6 day 1 Avastin/Irinotecan IV. Port accessed with blood return-labs drawn from port. Specimen sent to lab. 0.9% NS infusing. Pt states he has numbness and tingling in fingers and feet- no change from previous weeks, States stools remain loose-has ostomy, continues with fatigue relieved with naps. Lab results reviewed. Pre medicated with Benadryl 25 mg orally, tylenol 650mg, Pepcid 20mg IV, Zofran 16mg IV, Decadron 12 mg IV. Avastin/Irinotecan IV given as ordered. Tolerated well. Port flushed with heparin and de accessed. Pt states he is working on getting dental appointment-states he will notify us when he has appointment. Follow up appointment scheduled, discharge packet given. Discharged home.
[2021-04-04 08:58] VITALS: BP 124/61; PULSE 72; RESP 18; TEMP 36.3; O2SAT 93; BMI 23.2
[2021-04-04 09:45] LABS: MANUAL DIFF FLAG NO
[2021-04-04 09:48] LABS: Basophils Percent Auto 0.5 % (0-2); Eosinophils Absolute Auto 0.1 X10*3/uL (0.0-0.4); Eosinophils Percent Auto 3.2 % (0-4); Hematocrit 34.9 % (42-52); Hemoglobin 11.3 g/dl (14.0-18.0); Imm Gran Abs Auto 0.02 X10*3/uL (0.00-0.03); Imm Gran Pct Auto 0.5 % (0.0-0.4); Lymphocytes Absolute Auto 0.8 X10*3/uL (1.2-4.9); Lymphocytes Percent Auto 18.5 % (20-40); Mean Corpuscular HGB Conc 32.4 g/dl (31.0-36.0); Mean Corpuscular Hemoglobin 31.8 pg (27.0-33.0); Mean Corpuscular Volume 98.3 fL (80-98); Mean Platelet Volume 12.4 fL (9.4-12.4); Monocytes Absolute Auto 0.5 X10*3/uL (0.1-1.2); Neutrophils Percent Auto 66.3 % (45-73); Platelet Count 133 X10*3/uL (160-400); Red Blood Count 3.55 X10*6/uL (4.60-5.80); Red Cell Distribution Width 15.3 % (11.0-16.0); White Blood Count 4.4 X10*3/uL (4.8-10.8)
[2021-04-04 10:21] LABS: Glucose Urine UA NEG (NEG); Leukocyte Esterase Urine NEG (NEG); Nitrite Urine NEG (NEG); Urine Blood NEG (NEG); Urine Ketones NEG (NEG); Urine Protein NEG (NEG-TRACE)
[2021-04-04 10:24] LABS: Appearance Urine CLEAR; Color Urine YELLOW
[2021-04-04 10:29] LABS: Alanine Aminotransferase 24 U/L (0-40); Albumin Level 3.5 g/dL (3.5-5.0); Alkaline Phosphatase 84 U/L (39-117); Anion Gap 10 (12-20); Aspartate Amino Transferase 30 U/L (5-37); Bilirubin Total 1.5 mg/dL (0.0-1.0); Blood Urea Nitrogen 9 mg/dL (9-16); Calcium 8.6 mg/dL (8.4-10.2); Carbon Dioxide 26 mmol/L (22-29); Chloride 106 mmol/L (96-108); Creatinine Clr Calc Pharmacy 111.7; Estimated Glomerular Filt Rate > 60; Glucose Random 97 mg/dL (60-115); Magnesium 1.9 mg/dL (1.6-2.6); Potassium 3.9 mmol/L (3.3-5.1); Sodium 138 mmol/L (135-145)
[2021-04-04] MEDS: Acetaminophen 325 MG TABLET 650 MG PO (11:21)
[2021-04-04] MEDS: diphenhydrAMINE HCL 25 MG TABLET PO (11:22)
[2021-04-04] MEDS: Famotidine/PF 20 MG/2 ML VIAL IVPUSH (11:24)
[2021-04-04] MEDS: dexAMETHasone sod phosphate/NS 12 MG/50 ML PIGGYBACK 200 MG IV (11:32)
[2021-04-04] MEDS: Atropine Sulfate 1 MG/ML VIAL 0.5 MG SUBCUT (11:35)
[2021-04-04] MEDS: SODIUM CHLORIDE 0.9% IV (12:19)
[2021-04-04] MEDS: BEVACIZUMAB IV (12:19)
[2021-04-04] MEDS: DEXTROSE 5% IV (13:24)
[2021-04-04] MEDS: IRINOTECAN HCL IV (13:24)
--- NOTE | 2021-04-04 15:06 | P.PNHO_ITS ---
Medical Summary - Medical Summary Date of Service: 04/04/21 Chief complaint: Follow-up and scheduled treatment Medical Summary: Metastatic colon cancer diagnosed in October 2018. Presented with abdominal pain, 30 pound weight loss and severe pain. He had abnormal colonoscopy in 2009. He was told he needed a repeat colonoscopy in 5 years but he did not go for testing. CT abdomen/pelvis with IV contrast shows multiple areas of wall thickening in the sigmoid colon as well as thickening and enhancement of cecum, terminal ileum. Long segment of wall thickening of the di stal transverse colon and left colon. Enlarged mesenteric and retroperitoneal lymph nodes, multiple liver metastasis and lung metastasis, all of these worrisome for metastatic colorectal malignancy. 11/01/18-Core biopsy of the right liver mass, moderately differentiated adenocarcinoma consistent with colorectal primary. KRAS mutation not detected BRAF mutation not detected. NRAS negative, MSI proficient or MSI stable. He developed bowel obstruction, palliative bypass ileostomy has been performed in November 2018. He started on mFOLFOX/Avastin regimen from 11/27/2018. His last treatment cycle 13 was on 05/14/2019. 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 Repeat CT abdomen/pelvis on 09/18/2019 showed further decrease in size of liver metastasis. Started maintenance treatment with Xeloda and bevacizumab in October 2019. Interval History Interval history: patient is here in follow-up as well as scheduled treatment. He is doing well and has no complaints today. He is still waiting to get his dental work done. He denies any nausea or emesis. No fever or chills. He has no new complaints today. Review of Systems - Constitutional Reports as per HPI, Reports no additional constitutional complaints - Cardiovascular Reports no additional cardiovascular complaints - Respiratory Reports no additional respiratory complaints - Gastrointestinal Reports no additional gastrointestinal complaints [facility] Medical History: Medical History (Last Updated 02/04/21 @ 13:55 by Shravan Mcginnis MD) Chronic respiratory failure ILD (interstitial lung disease) Pulmonary fibrosis Pulmonary nodule Tubular adenoma Family History: Family History (Last Updated 05/19/20 @ 16:28 by Simona Alanis RN) Son Cystic fibrosis Brother Esophageal cancer Maternal Aunt Lung cancer Surgical History: Surgical History (Last Updated 05/19/20 @ 16:24 by Simona Alanis RN) H/O knee surgery Social History: Social History (Last Updated 05/19/20 @ 16:27 by Simona Alanis RN) Living Situation History: Household Members: Spouse Household Members: Children Alcohol History Quit Date: Year quit: 2019 Alcohol History Details: Alcohol intake frequency: former alcohol drinker Substance Use History: Use of substances other than those prescribed or required for medical reasons : No Advance Directives: Advance Directives: Yes Advance Directives Information Provided: No Advance Directives on File: Yes Advance Directives Date on File: 10/31/18 Nutrition Assessment: Recently lost weight without trying: No Occupation Assessmet: service: No Current occupational status: employed Current occupation: [employer] Medications and Allergies Current Medications: Current Medications Generic Name Dose Route Start Last Admin Trade Name Freq PRN Reason Stop Dose Admin Acetaminophen 650 mg 04/04/21 00:00 04/04/21 11:21 Acetaminophen 325 Mg Tablet PO 04/04/21 23:59 650 mg ONCE PINEDA Administration Atropine Sulfate 0.5 mg 04/04/21 00:00 04/04/21 11:35 Atropine Sulfate 1 Mg/Ml Vial SUBCUT 04/04/21 23:59 0.5 mg ONCE PINEDA Administration Diphenhydramine HCl 25 mg 04/04/21 00:00 04/04/21 11:22 Diphenhydramine Hcl 25 Mg Tablet PO 04/04/21 23:59 25 mg ONCE PINEDA Administration Famotidine 20 mg 04/04/21 00:00 04/04/21 11:24 Famotidine/Pf 20 Mg/2 Ml Vial IVPUSH 04/04/21 23:59 20 mg ONCE PINEDA Administration Dexamethasone Sodium Phosphate 12 mg in 50 mls @ 200 mls/hr 04/04/21 00:00 11:50 Decadron IV 04/04/21 23:59 Infused ONCE PINEDA Infusion Ondansetron HCl 16 mg in 50 mls @ 200 mls/hr 04/04/21 00:00 04/04/21 12:07 Zofran IV 04/04/21 23:59 Infused ONCE PINEDA Infusion Bevacizumab 365 mg/ Sodium 100 mls @ 200 mls/hr 04/04/21 00:00 04/04/21 12:50 Chloride IV 04/04/21 23:59 Infused ONCE PINEAD Infusion Irinotecan HCl 200 mg/ 512.5 mls @ 341.667 mls/hr 04/04/21 00:00 04/04/21 13:24 Irinotecan HCl 50 mg/ Dextrose IV 04/04/21 23:59 341.67 mls/hr ONCE PINEDA Administration Home Medications Medication Instructions Recorded Confirmed Type loperamide 2 mg capsule 2 mg PO QID PRN 05/19/20 03/21/21 History Allergies Allergy/AdvReac Type Severity Reaction Status Date / Time prednisone [PREDNISONE] AdvReac Intermediate Psychosis Verified 02/07/21 09:40 Exam Vital signs: Vital Signs Temp 97.3 F 04/04/21 08:58 Pulse 72 04/04/21 08:58 Resp 18 04/04/21 08:58 BP 124/61 04/04/21 08:58 Pulse Ox 93 04/04/21 08:58 Intake & Output 04/03/21 04/04/21 04/04/21 18:59 06:59 18:59 Intake Total 200 / 200 Balance 200 / 200 Intake: Intake, IV Amount 200 / 200 Bevacizumab 365 mg In 0.9 % 100 / 100 Sodium Chloride 85.4 ml @ 200 mls/hr IV ONCE PINEDA Rx#: [id number] Ondansetron HCL/NS 16 mg In 50 50 / 50 ml @ 200 mls/hr IV ONCE PINEDA Rx# :[id number] dexAMETHasone sod phosphate/NS 50 / 50 12 mg In 50 ml @ 200 mls/hr IV ONCE PINEDA Rx#:[id number] Other: Weight 75.6 kg [place] Weight in Grams 39697 Weight 75.6 kg Body Mass Index 23.2 - Constitutional Present: no acute distress - Routine HEENT Exam Head: Present: normal inspection - Routine Neck Exam Present: full ROM. Absent: lymphadenopathy - Routine Respiratory Exam Present: CTAB - Routine Cardiovascular Exam Cardiovascular: Present: RRR, S1, S2 - Routine Abdominal Exam Present: normal bowel sounds, soft. Absent: mass, organomegaly - Routine Extremities Exam Present: full ROM. Absent: calf tenderness, pedal edema - Routine Skin Exam Present: intact. Absent: cyanosis, erythema - Routine Neurological Exam Present: alert, oriented X3 Data - Labs CBC & Chem 7: 04/04/21 09:35 04/04/21 09:35 Labs: 05/19/20 00:00 Bevacizumab [Avastin] 400 mg Bevacizumab [Avastin] 150 mg 0.9 % Sodium Chloride [Ns] 78 ml IV ONCE Heparin Sodium,Porcine Flush 500 unit IVFLUSH ONCE ondansetron ODT [Zofran ODT] 8 mg TRANSLINGU ONCE 05/19/20 10:55 Complete Blood Count Auto Diff Routine Comprehensive Met. Panel Routine Magnesium Routine 05/19/20 11:00 Creatinine Urine Routine UA and rflx microscopic Routine 06/09/20 00:00 Bevacizumab [Avastin] 400 mg Bevacizumab [Avastin] 150 mg 0.9 % Sodium Chloride [Ns] 78 ml IV ONCE Heparin Sodium,Porcine Flush 500 unit IVFLUSH ONCE ondansetron ODT [Zofran ODT] 8 mg PO ONCE 06/09/20 09:40 Complete Blood Count Auto Diff Routine Comprehensive Met. Panel Routine Creatinine Urine Routine Magnesium Routine UA and rflx microscopic Routine 06/09/20 09:59 Acetaminophen [Tylenol] 650 mg PO ONCE ONE 07/05/20 00:00 Bevacizumab [Avastin] 400 mg Bevacizumab [Avastin] 150 mg 0.9 % Sodium Chloride [Ns] 78 ml IV ONCE Heparin Sodium,Porcine Flush 500 unit IVFLUSH ONCE ondansetron ODT [Zofran ODT] 8 mg TRANSLINGU ONCE 07/05/20 10:00 Carcinoembryonic Antigen Routine Complete Blood Count Auto Diff Routine Comprehensive Met. Panel Routine Creatinine Urine Routine Magnesium Routine UA and rflx microscopic Routine 07/05/20 11:38 Acetaminophen [Tylenol] 650 mg PO ONCE ONE 08/02/20 00:00 Bevacizumab [Avastin] 400 mg Bevacizumab [Avastin] 175 mg 0.9 % Sodium Chloride [Ns] 77 ml IV ONCE Heparin Sodium,Porcine Flush 500 unit IVFLUSH ONCE ondansetron ODT [Zofran ODT] 8 mg TRANSLINGU ONCE 08/02/20 10:20 CEA [Carcinoembryonic Antigen] Routine Complete Blood Count Auto Diff Routine Comprehensive Met. Panel Routine Creatinine Urine Routine Magnesium Routine UA and rflx microscopic Routine 08/02/20 11:37 Acetaminophen [Tylenol] 650 mg PO ONCE ONE 08/30/20 00:00 Bevacizumab [Avastin] 400 mg Bevacizumab [Avastin] 175 mg 0.9 % Sodium Chloride [Ns] 77 ml IV ONCE Heparin Sodium,Porcine Flush 500 unit IVFLUSH ONCE ondansetron ODT [Zofran ODT] 8 mg TRANSLINGU ONCE 08/30/20 09:15 Carcinoembryonic Antigen Routine Complete Blood Count Auto Diff Routine Comprehensive Met. Panel Routine Magnesium Routine UA and rflx microscopic Routine 08/30/20 11:52 Creatinine Urine Routine 09/20/20 00:00 Bevacizumab [Avastin] 400 mg Bevacizumab [Avastin] 175 mg 0.9 % Sodium Chloride [Ns] 77 ml IV ONCE Heparin Sodium,Porcine Flush 500 unit IVFLUSH ONCE ondansetron ODT [Zofran ODT] 8 mg TRANSLINGU ONCE 09/20/20 09:44 Complete Blood Count Auto Diff Routine Comprehensive Met. Panel Routine 09/20/20 09:55 UA w Microscopic Stat 10/11/20 09:25 CBC W/AUTO DIFF [Complete Blood Count Auto Diff] Routine CMP [Comprehensive [place]. Panel Fast] Routine 10/11/20 09:38 UA w Microscopic Routine Laboratory Last Values WBC 5.5 X10*3/uL (4.8-10.8) 10/11/20 09:25 RBC 3.76 X10*6/uL (4.60-5.80) L 10/11/20 09:25 Hgb 13.6 g/dl (14.0-18.0) L 10/11/20 09:25 Hct 40.8 % (42-52) L 10/11/20 09:25 MCV 108.5 fL (80-98) H 10/11/20 09:25 MCH 36.2 pg (27.0-33.0) H 10/11/20 09:25 MCHC 33.3 g/dl (31.0-36.0) 10/11/20 09:25 RDW 18.7 % (11.0-16.0) H 10/11/20 09:25 Plt Count 145 X10*3/uL (160-400) L 10/11/20 09:25 MPV 11.6 fL (9.4-12.4) 10/11/20 09:25 Immature Gran % (Auto) 0.4 % (0.0-0.4) 10/11/20 09:25 Neut % (Auto) 65.6 % (45-73) 10/11/20 09:25 Lymph % (Auto) 18.2 % (20-40) L 10/11/20 09:25 [place] % (Auto) 11.4 % (2-11) H 10/11/20 09:25 Eos % (Auto) 4.2 % (0-4) H 10/11/20 09:25 Baso % (Auto) 0.2 % (0-2) 10/11/20 09:25 Neut # (Auto) 4.0 X10*3/uL (2.0-8.3) 05/19/20 10:55 Lymph # (Auto) 1.0 X10*3/uL (1.2-4.9) L 10/11/20 09:25 [place] # (Auto) 0.6 X10*3/uL (0.1-1.2) 10/11/20 09:25 Eos # (Auto) 0.2 X10*3/uL (0.0-0.4) 10/11/20 09:25 Baso # (Auto) 0.0 X10*3/uL (0.0-0.2) 10/11/20 09:25 Abs Immat Gran (auto) 0.02 X10*3/uL (0.00-0.03) 10/11/20 09:25 Absolute Neuts (auto) 3.6 X10*3/uL (2.0-8.3) 10/11/20 09:25 Absolute Nucleated RBC 0.000 X10*3/uL (0.0-0.012) 10/11/20 09:25 Nucleated RBC % (auto) 0.0 /100WBC (0.0-0.2) 10/11/20 09:25 Sodium 137 mmol/L (135-145) 10/11/20 09:25 Potassium 3.9 mmol/L (3.3-5.1) 10/11/20 09:25 Chloride 104 mmol/L (96-108) 10/11/20 09:25 Carbon Dioxide 24 mmol/L (22-29) 10/11/20 09:25 Anion Gap 13 (12-20) 10/11/20 09:25 BUN 10 mg/dL (9-16) 10/11/20 09:25 Creatinine 0.76 mg/dL (0.5-1.4) 10/11/20 09:25 Estim Creat Clear Calc 107.3 10/11/20 09:25 Estimated GFR > 60 10/11/20 09:25 Random Glucose 122 mg/dL (60-115) H 09/20/20 09:44 Fasting Glucose 98 mg/dL (60-99) 10/11/20 09:25 Calcium 8.9 mg/dL (8.4-10.2) 10/11/20 09:25 Magnesium 2.1 mg/dL (1.6-2.6) 08/30/20 09:15 Total Bilirubin 3.1 mg/dL (0.0-1.0) H 10/11/20 09:25 AST 43 U/L (5-37) H 10/11/20 09:25 ALT 27 U/L (0-40) 10/11/20 09:25 Alkaline Phosphatase 81 U/L (39-117) 10/11/20 09:25 Total Protein 7.0 g/dL (6.5-8.0) 10/11/20 09:25 Albumin 4.1 g/dL (3.5-5.0) 10/11/20 09:25 Carcinoembryonic Ag 2.70 mg/mL 08/30/20 09:15 Urine Color YELLOW 10/11/20 09:38 Urine Appearance CLEAR 10/11/20 09:38 Urine pH 5.5 (5.0-8.0) 10/11/20 09:38 Ur Specific [place] 1.025 (1.005-1.025) 10/11/20 09:38 Urine Protein NEG MG/DL (NEG-TRACE) 10/11/20 09:38 Urine Glucose (UA) NEG MG/DL (NEG) 10/11/20 09:38 Urine Ketones NEG MG/DL (NEG) 10/11/20 09:38 Urine Blood NEG (NEG) 10/11/20 09:38 Urine Nitrite NEG (NEG) 10/11/20 09:38 Ur Leukocyte Esterase NEG (NEG) 10/11/20 09:38 Urine RBC 0 /HPF (0) 10/11/20 09:38 Urine WBC 0 /HPF (0-4) 10/11/20 09:38 Ur Squamous Epith Cells NONE /LPF 10/11/20 09:38 Ur Renal Epithelial Cell 1+ /LPF 09/20/20 09:55 Urine Bacteria NONE /LPF 10/11/20 09:38 Urine Mucus 3+ /LPF 09/20/20 09:55 Urine Creatinine 116.28 mg/dL 08/30/20 11:52 Progress Note: A/P (1) Colon cancer metastasized to liver Status: Chronic Assessment and plan: 1. This is a 60-year-old gentleman, with metastatic colon carcinoma, with liver and lung metastases. Biopsy of the liver lesion, Moderately differentiated kelli ocarcinoma. KRAS and BRAF negative. NRAS negative, MSI proficient or MSI stable. HER2 and panTRK negative. Initial CEA elevated at 91. He developed bowel obstruction, palliative bypass ileostomy has been performed in November 2018. He started on mFOLFOX/Avastin regimen from 11/27/2018. His last treatment cycle 13 was on 05/14/2019. He was on maintenance Xeloda 1500 mg p.o. b.i.d. 2 weeks on/1 week off, along with bevacizumab Q 3 weeks starting 10/22/2019 until 12/13/2020. Rising CEA as well as imaging in November 2020 showed evidence of progressive disease. He started irinotecan with bevacizumab from December 2020. He is tolerating treatment well. CEA level is pending. Proceed with treatment today. 2. 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 He has been tapered off prednisone and CellCept. He is also off the oxygen. 3. Chronic arthralgias. He is on MSContin 30 mg b.i.d. he is on oxycodone 5 mg for breakthrough pain 2 to 3 times a day. 4. Intermittent elevation of bilirubin, indirect bilirubinemia, probable Gilbert's syndrome. Follow-up in 3 weeks. - Time Spent With Patient Time Spent with Patient (in minutes): 15
[2021-04-04 15:57] LABS: Creatinine Urine 187.98 mg/dL
--- NOTE | 2021-04-04 16:48 | MHC.HEMONC ---
Patient arrived for chemotherapy infusion. Right port accessed with positive blood return. Labs drawn and reviewed. Patient received chemotherapy infusions with positive blood return present between medications. Port de-accessed at the conclusion of the infusions. Next infusion scheduled for 04/19/2021.
[2021-04-20 08:55] VITALS: BP 111/57; PULSE 69; RESP 18; TEMP 36.3; O2SAT 95; BMI 22.8
[2021-04-20 10:11] LABS: MANUAL DIFF FLAG NO
[2021-04-20 10:14] LABS: Basophils Percent Auto 0.4 % (0-2); Eosinophils Absolute Auto 0.2 X10*3/uL (0.0-0.4); Eosinophils Percent Auto 5.3 % (0-4); Hemoglobin 10.8 g/dl (14.0-18.0); Imm Gran Abs Auto 0.01 X10*3/uL (0.00-0.03); Imm Gran Pct Auto 0.4 % (0.0-0.4); Lymphocytes Absolute Auto 0.8 X10*3/uL (1.2-4.9); Lymphocytes Percent Auto 28.6 % (20-40); Mean Corpuscular HGB Conc 31.8 g/dl (31.0-36.0); Mean Corpuscular Hemoglobin 30.9 pg (27.0-33.0); Mean Corpuscular Volume 97.4 fL (80-98); Mean Platelet Volume 12.6 fL (9.4-12.4); Monocytes Absolute Auto 0.5 X10*3/uL (0.1-1.2); Monocytes Percent Auto 17.3 % (2-11); Neutrophils Absolute Auto 1.4 X10*3/uL (2.0-8.3); Platelet Count 150 X10*3/uL (160-400); Red Blood Count 3.49 X10*6/uL (4.60-5.80); Red Cell Distribution Width 15.9 % (11.0-16.0); White Blood Count 2.8 X10*3/uL (4.8-10.8)
[2021-04-20 10:32] LABS: Alanine Aminotransferase 17 U/L (0-40); Albumin Level 3.5 g/dL (3.5-5.0); Alkaline Phosphatase 96 U/L (39-117); Anion Gap 15 (12-20); Aspartate Amino Transferase 29 U/L (5-37); Blood Urea Nitrogen 7 mg/dL (9-16); Calcium 8.8 mg/dL (8.4-10.2); Carbon Dioxide 22 mmol/L (22-29); Chloride 106 mmol/L (96-108); Creatinine Clr Calc Pharmacy 106.1; Estimated Glomerular Filt Rate > 60; Glucose Random 123 mg/dL (60-115); Potassium 3.9 mmol/L (3.3-5.1); Sodium 139 mmol/L (135-145)
[2021-04-20 10:52] LABS: Appearance Urine CLEAR; Color Urine YELLOW; Glucose Urine UA NEG (NEG); Leukocyte Esterase Urine NEG (NEG); Nitrite Urine NEG (NEG); Urine Blood NEG (NEG); Urine Ketones NEG (NEG); Urine Protein NEG (NEG-TRACE)
[2021-04-20] MEDS: dexAMETHasone sod phosphate/NS 12 MG/50 ML PIGGYBACK 200 MG IV (11:07)
[2021-04-20] MEDS: diphenhydrAMINE HCL 25 MG TABLET PO (11:07)
[2021-04-20] MEDS: Acetaminophen 325 MG TABLET 650 MG PO (11:08)
[2021-04-20] MEDS: Famotidine/PF 20 MG/2 ML VIAL IVPUSH (11:08)
[2021-04-20] MEDS: Atropine Sulfate 1 MG/ML VIAL 0.5 MG SUBCUT (11:08)
[2021-04-20 11:10] LABS: Opiate Screen Urine POSITIVE (Not Detect)
[2021-04-20] MEDS: SODIUM CHLORIDE 0.9% IV (12:00)
[2021-04-20] MEDS: BEVACIZUMAB IV (12:00)
[2021-04-20] MEDS: DEXTROSE 5% IV (12:55)
[2021-04-20] MEDS: IRINOTECAN HCL IV (12:55)
--- NOTE | 2021-04-20 16:06 | MHC.HEMONC ---
Agreement for Chronic Opioid Therapy signed by pt and Dr Mckee today.
--- NOTE | 2021-04-27 12:40 | MHC.HEMONC ---
Patient rescheduled chemotherapy appt to 05/09/21 at 0900
[2021-05-09 09:01] VITALS: BP 138/82; PULSE 103; RESP 18; TEMP 36.1; O2SAT 92
[2021-05-09 09:02] VITALS: BMI 22.8
[2021-05-09 09:55] LABS: MANUAL DIFF FLAG NO
[2021-05-09 10:00] LABS: Basophils Percent Auto 0.3 % (0-2); Eosinophils Absolute Auto 0.2 X10*3/uL (0.0-0.4); Eosinophils Percent Auto 5.6 % (0-4); Hematocrit 34.4 % (42-52); Hemoglobin 11.1 g/dl (14.0-18.0); Imm Gran Abs Auto 0.01 X10*3/uL (0.00-0.03); Imm Gran Pct Auto 0.3 % (0.0-0.4); Lymphocytes Absolute Auto 0.9 X10*3/uL (1.2-4.9); Lymphocytes Percent Auto 23.4 % (20-40); Mean Corpuscular HGB Conc 32.3 g/dl (31.0-36.0); Mean Corpuscular Hemoglobin 31.3 pg (27.0-33.0); Mean Corpuscular Volume 96.9 fL (80-98); Monocytes Absolute Auto 0.4 X10*3/uL (0.1-1.2); Monocytes Percent Auto 10.6 % (2-11); Neutrophils Absolute Auto 2.3 X10*3/uL (2.0-8.3); Neutrophils Percent Auto 59.8 % (45-73); Platelet Count 102 X10*3/uL (160-400); Red Blood Count 3.55 X10*6/uL (4.60-5.80); Red Cell Distribution Width 15.7 % (11.0-16.0); White Blood Count 3.8 X10*3/uL (4.8-10.8)
[2021-05-09 10:22] LABS: Alanine Aminotransferase 29 U/L (0-40); Albumin Level 3.6 g/dL (3.5-5.0); Alkaline Phosphatase 94 U/L (39-117); Anion Gap 12 (12-20); Aspartate Amino Transferase 38 U/L (5-37); Bilirubin Total 1.4 mg/dL (0.0-1.0); Blood Urea Nitrogen 10 mg/dL (9-16); Calcium 8.6 mg/dL (8.4-10.2); Carbon Dioxide 22 mmol/L (22-29); Chloride 106 mmol/L (96-108); Creatinine Clr Calc Pharmacy 100.6; Estimated Glomerular Filt Rate > 60; Glucose Random 115 mg/dL (60-115); Magnesium 1.9 mg/dL (1.6-2.6); Potassium 3.8 mmol/L (3.3-5.1); Sodium 136 mmol/L (135-145); Total Protein 6.3 g/dL (6.5-8.0)
[2021-05-09 10:59] LABS: Appearance Urine CLEAR; Color Urine YELLOW; Glucose Urine UA NEG (NEG); Leukocyte Esterase Urine NEG (NEG); Nitrite Urine NEG (NEG); PH 5.5 (5.0-8.0); Specific Gravity - Urine <= 1.005 (1.005-1.025); Urine Blood NEG (NEG); Urine Ketones NEG (NEG); Urine Protein NEG (NEG-TRACE)
[2021-05-09 11:24] LABS: RBC Urine 0-2 /HPF (0); WBC Urine 0-2 /HPF (0-4)
[2021-05-09] MEDS: Acetaminophen 325 MG TABLET 650 MG PO (11:24)
[2021-05-09] MEDS: Famotidine/PF 20 MG/2 ML VIAL IVPUSH (11:25)
[2021-05-09] MEDS: diphenhydrAMINE HCL 25 MG TABLET PO (11:25)
[2021-05-09] MEDS: Atropine Sulfate 1 MG/ML VIAL 0.5 MG SUBCUT (11:25)
[2021-05-09] MEDS: dexAMETHasone sod phosphate/NS 12 MG/50 ML PIGGYBACK 200 MG IV (11:26)
[2021-05-09 11:38] LABS: Creatinine Urine 78.46 mg/dL
[2021-05-09] MEDS: SODIUM CHLORIDE 0.9% IV (12:29)
[2021-05-09] MEDS: BEVACIZUMAB IV (12:29)
--- NOTE | 2021-05-09 13:13 | P.PNHO_ITS ---
Medical Summary - Medical Summary Medical Summary: Metastatic colon cancer diagnosed in October 2018. Presented with abdominal pain, 30 pound weight loss and severe pain. He had abnormal colonoscopy in 2009. He was told he needed a repeat colonoscopy in 5 years but he did not go for testing. CT abdomen/pelvis with IV contrast shows multiple areas of wall thickening in the sigmoid colon as well as thickening and enhancement of cecum, terminal ileum. Long segment of wall thickening of the distal transverse colon and left colon. Enlarged mesenteric and retroperitoneal lymph nodes, multiple liver metastasis and lung metastasis, all of these worrisome for metastatic colorectal malignancy. 11/01/18-Core biopsy of the right liver mass, moderately differentiated adenocarcinoma consistent with colorectal primary. KRAS mutation not detected BRAF mutation not detected. NRAS negative, MSI proficient or MSI stable. He developed bowel obstruction, palliative bypass ileostomy has been performed in November 2018. He started on mFOLFOX/Avastin regimen from 11/27/2018. His last treatment cycle 13 was on 05/14/2019. 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 Repeat CT abdomen/pelvis on 09/18/2019 showed further decrease in size of liver metastasis. Started maintenance treatment with Xeloda and bevacizumab in October 2019. Interval History Interval history: patient is here in follow-up as well as scheduled treatment. He is doing well and has no complaints today. He is still waiting to get his dental work done. He denies any nausea or emesis. No fever or chills. He has no new complaints today. [facility] Medical History: Medical History (Last Updated 02/04/21 @ 13:55 by Shravan Mcginnis MD) Chronic respiratory failure ILD (interstitial lung disease) Pulmonary fibrosis Pulmonary nodule Tubular adenoma Family History: Family History (Last Updated 05/19/20 @ 16:28 by Simona Alanis RN) Son Cystic fibrosis Brother Esophageal cancer Maternal Aunt Lung cancer Surgical History: Surgical History (Last Updated 05/19/20 @ 16:24 by Simona Alanis RN) H/O knee surgery Social History: Social History (Last Updated 05/19/20 @ 16:27 by Simona Alanis RN) Living Situation History: Household Members: Spouse Household Members: Children Alcohol History Quit Date: Year quit: 2019 Alcohol History Details: Alcohol intake frequency: former alcohol drinker Substance Use History: Use of substances other than those prescribed or required for medical reasons : No Advance Directives: Advance Directives: Yes Advance Directives Information Provided: No Advance Directives on File: Yes Advance Directives Date on File: 10/31/18 Nutrition Assessment: Recently lost weight without trying: No Occupation Assessmet: service: No Current occupational status: employed Current occupation: [employer] Medications and Allergies Current Medications: Current Medications Acetaminophen (Acetaminophen 325 Mg Tablet) 650 mg PO ONCE PINEDA Stop: 05/09/21 23:59 Last Admin: 05/09/21 11:24 Dose: 650 mg Documented by: Atropine Sulfate (Atropine Sulfate 1 Mg/Ml Vial) 0.5 mg SUBCUT ONCE PINEDA Stop: 05/09/21 23:59 Last Admin: 05/09/21 11:25 Dose: 0.5 mg Documented by: Diphenhydramine HCl (Diphenhydramine Hcl 25 Mg Tablet) 25 mg PO ONCE PINEDA Stop: 05/09/21 23:59 Last Admin: 05/09/21 11:25 Dose: 25 mg Documented by: Famotidine (Famotidine/Pf 20 Mg/2 Ml Vial) 20 mg IVPUSH ONCE PINEDA Stop: 05/09/21 23:59 Last Admin: 05/09/21 11:25 Dose: 20 mg Documented by: Dexamethasone Sodium Phosphate (Decadron) 12 mg in 50 mls @ 200 mls/hr IV ONCE PINEDA Stop: 05/09/21 23:59 Last Infusion: 05/09/21 11:45 Dose: Infused Documented by: Ondansetron HCl (Zofran) 16 mg in 50 mls @ 200 mls/hr IV ONCE PINEDA Stop: 05/09/21 23:59 Last Infusion: 05/09/21 12:12 Dose: Infused Documented by: Irinotecan HCl 200 mg/ (Irinotecan HCl 50 mg/ Dextrose) 512.5 mls @ 341.667 mls/hr IV ONCE PINEDA Stop: 05/09/21 23:59 Bevacizumab 365 mg/ Sodium (Chloride) 100 mls @ 200 mls/hr IV ONCE PINEDA Stop: 05/09/21 23:59 Last Admin: 05/09/21 12:29 Dose: 200 mls/hr Documented by: Home Medications Medication Instructions Recorded Confirmed Type loperamide 2 mg capsule 2 mg PO QID PRN 05/19/20 05/09/21 History Allergies Allergy/AdvReac Type Severity Reaction Status Date / Time prednisone [PREDNISONE] AdvReac Intermediate Psychosis Verified 04/07/21 14:19 Exam Vital signs: Vital Signs Temp 97.0 F 05/09/21 09:01 Pulse 103 H 05/09/21 09:01 Resp 18 05/09/21 09:01 BP 138/82 05/09/21 09:01 Pulse Ox 92 05/09/21 09:01 Intake & Output 05/08/21 05/09/21 05/09/21 18:59 06:59 18:59 Intake Total 100 / 100 Balance 100 / 100 Intake: Intake, IV Amount 100 / 100 Ondansetron HCL/NS 16 mg In 50 50 / 50 ml @ 200 mls/hr IV ONCE PINEDA Rx# :[id number] dexAMETHasone sod phosphate/NS 50 / 50 12 mg In 50 ml @ 200 mls/hr IV ONCE PINEDA Rx#:[id number] Other: Weight 74.3 kg [place] Weight in Grams [address]656 Weight 74.3 kg Body Mass Index 22.8 - Constitutional Present: no acute distress - Routine HEENT Exam Head: Present: normal inspection - Routine Neck Exam Present: full ROM. Absent: lymphadenopathy - Routine Respiratory Exam Present: CTAB - Routine Cardiovascular Exam Cardiovascular: Present: RRR, S1, S2 - Routine Abdominal Exam Present: normal bowel sounds, soft. Absent: mass, organomegaly - Routine Extremities Exam Present: full ROM. Absent: calf tenderness, pedal edema - Routine Skin Exam Present: intact. Absent: cyanosis, erythema - Routine Neurological Exam Present: alert, oriented X3 Data - Labs CBC & Chem 7: 05/09/21 09:35 05/09/21 09:35 Labs: 05/19/20 00:00 Bevacizumab [Avastin] 400 mg Bevacizumab [Avastin] 150 mg 0.9 % Sodium Chloride [Ns] 78 ml IV ONCE Heparin Sodium,Porcine Flush 500 unit IVFLUSH ONCE ondansetron ODT [Zofran ODT] 8 mg TRANSLINGU ONCE 05/19/20 10:55 Complete Blood Count Auto Diff Routine Comprehensive Met. Panel Routine Magnesium Routine 05/19/20 11:00 Creatinine Urine Routine UA and rflx microscopic Routine 06/09/20 00:00 Bevacizumab [Avastin] 400 mg Bevacizumab [Avastin] 150 mg 0.9 % Sodium Chloride [Ns] 78 ml IV ONCE Heparin Sodium,Porcine Flush 500 unit IVFLUSH ONCE ondansetron ODT [Zofran ODT] 8 mg PO ONCE 06/09/20 09:40 Complete Blood Count Auto Diff Routine Comprehensive Met. Panel Routine Creatinine Urine Routine Magnesium Routine UA and rflx microscopic Routine 06/09/20 09:59 Acetaminophen [Tylenol] 650 mg PO ONCE ONE 07/05/20 00:00 Bevacizumab [Avastin] 400 mg Bevacizumab [Avastin] 150 mg 0.9 % Sodium Chloride [Ns] 78 ml IV ONCE Heparin Sodium,Porcine Flush 500 unit IVFLUSH ONCE ondansetron ODT [Zofran ODT] 8 mg TRANSLINGU ONCE 07/05/20 10:00 Carcinoembryonic Antigen Routine Complete Blood Count Auto Diff Routine Comprehensive Met. Panel Routine Creatinine Urine Routine Magnesium Routine UA and rflx microscopic Routine 07/05/20 11:38 Acetaminophen [Tylenol] 650 mg PO ONCE ONE 08/02/20 00:00 Bevacizumab [Avastin] 400 mg Bevacizumab [Avastin] 175 mg 0.9 % Sodium Chloride [Ns] 77 ml IV ONCE Heparin Sodium,Porcine Flush 500 unit IVFLUSH ONCE ondansetron ODT [Zofran ODT] 8 mg TRANSLINGU ONCE 08/02/20 10:20 CEA [Carcinoembryonic Antigen] Routine Complete Blood Count Auto Diff Routine Comprehensive Met. Panel Routine Creatinine Urine Routine Magnesium Routine UA and rflx microscopic Routine 08/02/20 11:37 Acetaminophen [Tylenol] 650 mg PO ONCE ONE 08/30/20 00:00 Bevacizumab [Avastin] 400 mg Bevacizumab [Avastin] 175 mg 0.9 % Sodium Chloride [Ns] 77 ml IV ONCE Heparin Sodium,Porcine Flush 500 unit IVFLUSH ONCE ondansetron ODT [Zofran ODT] 8 mg TRANSLINGU ONCE 08/30/20 09:15 Carcinoembryonic Antigen Routine Complete Blood Count Auto Diff Routine Comprehensive Met. Panel Routine Magnesium Routine UA and rflx microscopic Routine 08/30/20 11:52 Creatinine Urine Routine 09/20/20 00:00 Bevacizumab [Avastin] 400 mg Bevacizumab [Avastin] 175 mg 0.9 % Sodium Chloride [Ns] 77 ml IV ONCE Heparin Sodium,Porcine Flush 500 unit IVFLUSH ONCE ondansetron ODT [Zofran ODT] 8 mg TRANSLINGU ONCE 09/20/20 09:44 Complete Blood Count Auto Diff Routine Comprehensive Met. Panel Routine 09/20/20 09:55 UA w Microscopic Stat 10/11/20 09:25 CBC W/AUTO DIFF [Complete Blood Count Auto Diff] Routine CMP [Comprehensive [place]. Panel Fast] Routine 10/11/20 09:38 UA w Microscopic Routine Laboratory Last Values WBC 5.5 X10*3/uL (4.8-10.8) 10/11/20 09:25 RBC 3.76 X10*6/uL (4.60-5.80) L 10/11/20 09:25 Hgb 13.6 g/dl (14.0-18.0) L 10/11/20 09:25 Hct 40.8 % (42-52) L 10/11/20 09:25 MCV 108.5 fL (80-98) H 10/11/20 09:25 MCH 36.2 pg (27.0-33.0) H 10/11/20 09:25 MCHC 33.3 g/dl (31.0-36.0) 10/11/20 09:25 RDW 18.7 % (11.0-16.0) H 10/11/20 09:25 Plt Count 145 X10*3/uL (160-400) L 10/11/20 09:25 MPV 11.6 fL (9.4-12.4) 10/11/20 09:25 Immature Gran % (Auto) 0.4 % (0.0-0.4) 10/11/20 09:25 Neut % (Auto) 65.6 % (45-73) 10/11/20 09:25 Lymph % (Auto) 18.2 % (20-40) L 10/11/20 09:25 [place] % (Auto) 11.4 % (2-11) H 10/11/20 09:25 Eos % (Auto) 4.2 % (0-4) H 10/11/20 09:25 Baso % (Auto) 0.2 % (0-2) 10/11/20 09:25 Neut # (Auto) 4.0 X10*3/uL (2.0-8.3) 05/19/20 10:55 Lymph # (Auto) 1.0 X10*3/uL (1.2-4.9) L 10/11/20 09:25 [place] # (Auto) 0.6 X10*3/uL (0.1-1.2) 10/11/20 09:25 Eos # (Auto) 0.2 X10*3/uL (0.0-0.4) 10/11/20 09:25 Baso # (Auto) 0.0 X10*3/uL (0.0-0.2) 10/11/20 09:25 Abs Immat Gran (auto) 0.02 X10*3/uL (0.00-0.03) 10/11/20 09:25 Absolute Neuts (auto) 3.6 X10*3/uL (2.0-8.3) 10/11/20 09:25 Absolute Nucleated RBC 0.000 X10*3/uL (0.0-0.012) 10/11/20 09:25 Nucleated RBC % (auto) 0.0 /100WBC (0.0-0.2) 10/11/20 09:25 Sodium 137 mmol/L (135-145) 10/11/20 09:25 Potassium 3.9 mmol/L (3.3-5.1) 10/11/20 09:25 Chloride 104 mmol/L (96-108) 10/11/20 09:25 Carbon Dioxide 24 mmol/L (22-29) 10/11/20 09:25 Anion Gap 13 (12-20) 10/11/20 09:25 BUN 10 mg/dL (9-16) 10/11/20 09:25 Creatinine 0.76 mg/dL (0.5-1.4) 10/11/20 09:25 Estim Creat Clear Calc 107.3 10/11/20 09:25 Estimated GFR > 60 10/11/20 09:25 Random Glucose 122 mg/dL (60-115) H 09/20/20 09:44 Fasting Glucose 98 mg/dL (60-99) 10/11/20 09:25 Calcium 8.9 mg/dL (8.4-10.2) 10/11/20 09:25 Magnesium 2.1 mg/dL (1.6-2.6) 08/30/20 09:15 Total Bilirubin 3.1 mg/dL (0.0-1.0) H 10/11/20 09:25 AST 43 U/L (5-37) H 10/11/20 09:25 ALT 27 U/L (0-40) 10/11/20 09:25 Alkaline Phosphatase 81 U/L (39-117) 10/11/20 09:25 Total Protein 7.0 g/dL (6.5-8.0) 10/11/20 09:25 Albumin 4.1 g/dL (3.5-5.0) 10/11/20 09:25 Carcinoembryonic Ag 2.70 mg/mL 08/30/20 09:15 Urine Color YELLOW 10/11/20 09:38 Urine Appearance CLEAR 10/11/20 09:38 Urine pH 5.5 (5.0-8.0) 10/11/20 09:38 Ur Specific [place] 1.025 (1.005-1.025) 10/11/20 09:38 Urine Protein NEG MG/DL (NEG-TRACE) 10/11/20 09:38 Urine Glucose (UA) NEG MG/DL (NEG) 10/11/20 09:38 Urine Ketones NEG MG/DL (NEG) 10/11/20 09:38 Urine Blood NEG (NEG) 10/11/20 09:38 Urine Nitrite NEG (NEG) 10/11/20 09:38 Ur Leukocyte Esterase NEG (NEG) 10/11/20 09:38 Urine RBC 0 /HPF (0) 10/11/20 09:38 Urine WBC 0 /HPF (0-4) 10/11/20 09:38 Ur Squamous Epith Cells NONE /LPF 10/11/20 09:38 Ur Renal Epithelial Cell 1+ /LPF 09/20/20 09:55 Urine Bacteria NONE /LPF 10/11/20 09:38 Urine Mucus 3+ /LPF 09/20/20 09:55 Urine Creatinine 116.28 mg/dL 08/30/20 11:52 Assessment and Plan (1) Colon cancer metastasized to liver Status: Chronic Assessment and plan: 1. This is a 60-year-old gentleman, with metastatic colon carcinoma, with liver and lung metastases. Biopsy of the liver lesion, Moderately differentiated adenocarcinoma. KRAS and BRAF negative. NRAS negative, MSI proficient or MSI stable. HER2 and panTRK negative. Initial CEA elevated at 91. He developed bowel obstruction, palliative bypass ileostomy has been performed in November 2018. He started on mFOLFOX/Avastin regimen from 11/27/2018. His last treatment cycle 13 was on 05/14/2019. He was on maintenance Xeloda 1500 mg p.o. b.i.d. 2 weeks on/1 week off, along with bevacizumab Q 3 weeks starting 10/22/2019 until 12/13/2020. Rising CEA as well as imaging in November 2020 showed evidence of progressive disease. He started irinotecan with bevacizumab from December 2020. He is tolerating treatment well. CEA level is pending. Proceed with treatment today. 2. 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 He has been tapered off prednisone and CellCept. He is also off the oxygen. 3. Chronic arthralgias. He is on MSContin 30 mg b.i.d. he is on oxycodone 5 mg for breakthrough pain 2 to 3 times a day. 4. Intermittent elevation of bilirubin, indirect bilirubinemia, probable Gilbert's syndrome. Follow-up in 3 weeks.
[2021-05-09] MEDS: IRINOTECAN HCL IV (13:15)
[2021-05-09] MEDS: DEXTROSE 5% IV (13:15)
--- NOTE | 2021-05-09 15:57 | MHC.HEMONC ---
Patient here for Cycle 9 Day 1 Irinotecan/Bevacizumab. Right chest port accessed with blood positive return noted. Lab reviewed - okay to receive treatment today. Patient pre-medicated with Tylenol and Benadryl PO, and Pepcid, Dexamethasone and Zofran IV and Atropine SC. Irinotecan/Bevacizumab given as ordered and patient tolerated it well. Patient requested refills of Oxycodone 5mg and Odanestron 8mg, Dr Mckee aware. Positive blood return in port both pre and post chemotherapy infusion. Next infusion and follow up with Dr Mckee scheduled for 05/25/2021. Discharge packet given. Patient departed the unit.
--- NOTE | 2021-05-16 12:01 | MHC.HEMONC ---
Received call from Selena for request of Morphine refill. Dr. Mckee sent prescription to [facility] per patient request. Selena updated.
[2021-05-25 09:17] VITALS: BP 142/72; PULSE 98; RESP 15; TEMP 36.1; O2SAT 86; BMI 22.3
[2021-05-25 09:53] LABS: Appearance Urine CLEAR; Color Urine YELLOW; Glucose Urine UA NEG (NEG); Leukocyte Esterase Urine NEG (NEG); Nitrite Urine NEG (NEG); Urine Blood NEG (NEG); Urine Ketones NEG (NEG); Urine Protein NEG (NEG-TRACE)
[2021-05-25 09:53] LABS: MANUAL DIFF FLAG NO
[2021-05-25 09:59] LABS: Basophils Percent Auto 0.4 % (0-2); Eosinophils Absolute Auto 0.2 X10*3/uL (0.0-0.4); Eosinophils Percent Auto 5.9 % (0-4); Hematocrit 35.7 % (42-52); Hemoglobin 11.5 g/dl (14.0-18.0); Lymphocytes Absolute Auto 0.7 X10*3/uL (1.2-4.9); Lymphocytes Percent Auto 28.5 % (20-40); Mean Corpuscular HGB Conc 32.2 g/dl (31.0-36.0); Mean Corpuscular Volume 96.2 fL (80-98); Mean Platelet Volume 11.4 fL (9.4-12.4); Monocytes Absolute Auto 0.4 X10*3/uL (0.1-1.2); Monocytes Percent Auto 14.1 % (2-11); Neutrophils Absolute Auto 1.3 X10*3/uL (2.0-8.3); Neutrophils Percent Auto 51.1 % (45-73); Platelet Count 125 X10*3/uL (160-400); Red Blood Count 3.71 X10*6/uL (4.60-5.80); Red Cell Distribution Width 15.9 % (11.0-16.0); White Blood Count 2.6 X10*3/uL (4.8-10.8)
[2021-05-25 10:14] LABS: Creatinine Urine 152.71 mg/dL
[2021-05-25 10:15] LABS: Alanine Aminotransferase 39 U/L (0-40); Albumin Level 3.6 g/dL (3.5-5.0); Alkaline Phosphatase 118 U/L (39-117); Anion Gap 11 (12-20); Aspartate Amino Transferase 45 U/L (5-37); Bilirubin Total 1.8 mg/dL (0.0-1.0); Blood Urea Nitrogen 11 mg/dL (9-16); Calcium 8.5 mg/dL (8.4-10.2); Carbon Dioxide 23 mmol/L (22-29); Chloride 106 mmol/L (96-108); Creatinine Clr Calc Pharmacy 103.4; Estimated Glomerular Filt Rate > 60; Glucose Random 147 mg/dL (60-115); Magnesium 1.9 mg/dL (1.6-2.6); Potassium 3.5 mmol/L (3.3-5.1); Sodium 136 mmol/L (135-145); Total Protein 6.4 g/dL (6.5-8.0)
[2021-05-25] MEDS: Acetaminophen 325 MG TABLET 650 MG PO (10:30)
[2021-05-25] MEDS: diphenhydrAMINE HCL 25 MG TABLET PO (10:30)
[2021-05-25] MEDS: Famotidine/PF 20 MG/2 ML VIAL IVPUSH (10:30)
[2021-05-25] MEDS: dexAMETHasone sod phosphate/NS 12 MG/50 ML PIGGYBACK 200 MG IV (10:56)
[2021-05-25] MEDS: Atropine Sulfate 1 MG/ML VIAL 0.5 MG SUBCUT (11:21)
[2021-05-25] MEDS: BEVACIZUMAB IV (11:22)
[2021-05-25] MEDS: SODIUM CHLORIDE 0.9% IV (11:22)
[2021-05-25] MEDS: IRINOTECAN HCL IV (12:02)
[2021-05-25] MEDS: DEXTROSE 5% IV (12:02)
[2021-06-08 09:54] VITALS: BP 107/65; PULSE 90; RESP 18; TEMP 36.9; O2SAT 92; BMI 23.0
[2021-06-08 10:22] LABS: MANUAL DIFF FLAG NO
[2021-06-08 10:26] LABS: Basophils Percent Auto 0.3 % (0-2); Eosinophils Absolute Auto 0.1 X10*3/uL (0.0-0.4); Eosinophils Percent Auto 3.4 % (0-4); Hematocrit 35.9 % (42-52); Hemoglobin 11.5 g/dl (14.0-18.0); Imm Gran Abs Auto 0.01 X10*3/uL (0.00-0.03); Imm Gran Pct Auto 0.3 % (0.0-0.4); Lymphocytes Percent Auto 27.7 % (20-40); Mean Corpuscular Hemoglobin 30.7 pg (27.0-33.0); Mean Platelet Volume 12.3 fL (9.4-12.4); Monocytes Absolute Auto 0.4 X10*3/uL (0.1-1.2); Monocytes Percent Auto 11.1 % (2-11); Neutrophils Percent Auto 57.2 % (45-73); Platelet Count 148 X10*3/uL (160-400); Red Blood Count 3.74 X10*6/uL (4.60-5.80); Red Cell Distribution Width 16.2 % (11.0-16.0); White Blood Count 3.5 X10*3/uL (4.8-10.8)
[2021-06-08 10:29] LABS: Appearance Urine CLEAR; Color Urine YELLOW; Glucose Urine UA NEG (NEG); Leukocyte Esterase Urine NEG (NEG); Nitrite Urine NEG (NEG); PH 5.5 (5.0-8.0); Specific Gravity - Urine >= 1.030 (1.005-1.025); Urine Blood NEG (NEG); Urine Ketones NEG (NEG); Urine Protein NEG (NEG-TRACE)
[2021-06-08 10:39] LABS: Creatinine Urine 265.84 mg/dL
[2021-06-08 10:41] LABS: Alanine Aminotransferase 36 U/L (0-40); Albumin Level 3.7 g/dL (3.5-5.0); Alkaline Phosphatase 102 U/L (39-117); Anion Gap 13 (12-20); Aspartate Amino Transferase 43 U/L (5-37); Bilirubin Total 1.7 mg/dL (0.0-1.0); Blood Urea Nitrogen 11 mg/dL (9-16); Calcium 8.8 mg/dL (8.4-10.2); Carbon Dioxide 23 mmol/L (22-29); Chloride 106 mmol/L (96-108); Creatinine Clr Calc Pharmacy 98.8; Estimated Glomerular Filt Rate > 60; Glucose Random 104 mg/dL (60-115); Magnesium 1.9 mg/dL (1.6-2.6); Sodium 138 mmol/L (135-145); Total Protein 6.5 g/dL (6.5-8.0)
[2021-06-08] MEDS: Acetaminophen 325 MG TABLET 650 MG PO (11:06)
[2021-06-08] MEDS: diphenhydrAMINE HCL 25 MG TABLET PO (11:07)
[2021-06-08] MEDS: Famotidine/PF 20 MG/2 ML VIAL IVPUSH (11:07)
[2021-06-08] MEDS: Atropine Sulfate 1 MG/ML VIAL 0.5 MG SUBCUT (11:15)
[2021-06-08] MEDS: dexAMETHasone sod phosphate/NS 12 MG/50 ML PIGGYBACK 200 MG IV (11:32)
[2021-06-08] MEDS: SODIUM CHLORIDE 0.9% IV (11:53)
[2021-06-08] MEDS: BEVACIZUMAB IV (11:53)
[2021-06-08] MEDS: IRINOTECAN HCL IV (12:33)
[2021-06-08] MEDS: DEXTROSE 5% IV (12:33)
--- NOTE | 2021-06-08 15:23 | MHC.HEMONC ---
Irinotecan/avastin patient valerie. well follow up in 14 days.
[2021-06-20 08:52] VITALS: BP 146/63; PULSE 73; RESP 17; TEMP 36.1; O2SAT 94; BMI 22.7
[2021-06-20 09:20] LABS: MANUAL DIFF FLAG NO
[2021-06-20 09:22] LABS: Basophils Percent Auto 0.4 % (0-2); Eosinophils Absolute Auto 0.1 X10*3/uL (0.0-0.4); Eosinophils Percent Auto 4.7 % (0-4); Hematocrit 32.6 % (42.0-52.0); Hemoglobin 10.5 g/dl (14.0-18.0); Lymphocytes Absolute Auto 0.7 X10*3/uL (1.2-4.9); Lymphocytes Percent Auto 25.5 % (20-40); Mean Corpuscular HGB Conc 32.2 g/dl (31.0-36.0); Mean Corpuscular Hemoglobin 30.9 pg (27.0-33.0); Mean Corpuscular Volume 95.9 fL (80.0-98.0); Monocytes Absolute Auto 0.3 X10*3/uL (0.1-1.2); Neutrophils Absolute Auto 1.6 x10*3/uL (2.0-8.3); Neutrophils Percent Auto 57.4 % (45-73); Platelet Count 147 X10*3/uL (160-400); Red Cell Distribution Width 16.2 % (11.0-16.0); White Blood Count 2.7 X10*3/uL (4.8-10.8)
[2021-06-20 09:25] LABS: Appearance Urine CLEAR; Color Urine YELLOW; Glucose Urine UA NEG (NEG); Leukocyte Esterase Urine NEG (NEG); Nitrite Urine NEG (NEG); Specific Gravity - Urine >= 1.030 (1.005-1.025); Urine Blood NEG (NEG); Urine Ketones NEG (NEG); Urine Protein NEG (NEG-TRACE)
[2021-06-20 09:36] LABS: RBC Urine 0 /HPF (0); WBC Urine 0-2 /HPF (0-4)
[2021-06-20 09:44] LABS: Alanine Aminotransferase 27 U/L (0-40); Albumin Level 3.5 g/dL (3.5-5.0); Alkaline Phosphatase 96 U/L (39-117); Anion Gap 10 (12-20); Aspartate Amino Transferase 34 U/L (5-37); Bilirubin Total 0.8 mg/dL (0.0-1.0); Blood Urea Nitrogen 10 mg/dL (9-16); Calcium 8.1 mg/dL (8.4-10.2); Carbon Dioxide 23 mmol/L (22-29); Chloride 107 mmol/L (96-108); Creatinine Clr Calc Pharmacy 101.4; Estimated Glomerular Filt Rate > 60; Glucose Random 110 mg/dL (60-115); Sodium 136 mmol/L (135-145); Total Protein 6.1 g/dL (6.5-8.0)
[2021-06-20] MEDS: Acetaminophen 325 MG TABLET 650 MG PO (10:19)
[2021-06-20] MEDS: diphenhydrAMINE HCL 25 MG TABLET PO (10:19)
[2021-06-20] MEDS: dexAMETHasone sod phosphate/NS 12 MG/50 ML PIGGYBACK 200 MG IV (10:20)
[2021-06-20] MEDS: Famotidine/PF 20 MG/2 ML VIAL IVPUSH (10:20)
[2021-06-20] MEDS: Atropine Sulfate 1 MG/ML VIAL 0.5 MG SUBCUT (10:20)
[2021-06-20] MEDS: SODIUM CHLORIDE 0.9% IV (11:46)
[2021-06-20] MEDS: BEVACIZUMAB IV (11:46)
[2021-06-20] MEDS: IRINOTECAN HCL IV (12:25)
[2021-06-20] MEDS: DEXTROSE 5% IV (12:25)
--- NOTE | 2021-06-20 13:58 | P.PNHO_ITS ---
Medical Summary - Medical Summary Date of Service: 06/20/21 Chief complaint: Follow-up Medical Summary: Metastatic colon cancer diagnosed in October 2018. Presented with abdominal pain, 30 pound weight loss and severe pain. He had abnormal colonoscopy in 2009. He was told he needed a repeat colonoscopy in 5 years but he did not go for testing. CT abdomen/pelvis with IV contrast shows multiple areas of wall thickening in the sigmoid colon as well as thickening and enhancement of cecum, terminal ileum. Long segment of wall thickening of the distal transverse colon and left colon. Enlarged mesenteric and retroperitoneal lymph nodes, multiple liver metastasis and lung metastasis, all of these worrisome for metastatic colorectal malignancy. 11/01/18-Core biopsy of the right liver mass, moderately differentiated adenocarcinoma consistent with colorectal primary. KRAS mutation not detected BRAF mutation not detected. NRAS negative, MSI proficient or MSI stable. He developed bowel obstruction, palliative bypass ileostomy has been performed in November 2018. He started on mFOLFOX/Avastin regimen from 11/27/2018. His last treatment cycle 13 was on 05/14/2019. 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 Repeat CT abdomen/pelvis on 09/18/2019 showed further decrease in size of liver metastasis. He was on maintenance Xeloda 1500 mg p.o. b.i.d. 2 weeks on/1 week off, along with bevacizumab Q 3 weeks starting 10/22/2019 until 12/13/2020. Rising CEA as well as imaging in November 2020 showed evidence of progressive disease. He started irinotecan with bevacizumab from December 2020. Interval History Interval history: Patient is here in follow-up and scheduled treatment. He is tolerating irinotecan quite well overall. He does report some loose stools, he is taking Imodium. Sometimes he notices some stinging and burning sensation around the ostomy site. There has been no blood or dark colored stools. He denies any fever or chills. No abdominal pain. No nausea or emesis. Review of Systems - Constitutional Reports as per HPI, Reports no additional constitutional complaints - Cardiovascular Reports no additional cardiovascular complaints - Respiratory Reports no additional respiratory complaints - Gastrointestinal Reports no additional gastrointestinal complaints [facility] Medical History: Medical History (Last Updated 02/04/21 @ 13:55 by Shravan Mcginnis MD) Chronic respiratory failure ILD (interstitial lung disease) Pulmonary fibrosis Pulmonary nodule Tubular adenoma Family History: Family History (Last Updated 05/19/20 @ 16:28 by Simona Alanis RN) Son Cystic fibrosis Brother Esophageal cancer Maternal Aunt Lung cancer Surgical History: Surgical History (Last Updated 05/19/20 @ 16:24 by Simona Alanis RN) H/O knee surgery Social History: Social History (Last Updated 05/19/20 @ 16:27 by Simona Alanis RN) Living Situation History: Household Members: Spouse Household Members: Children Alcohol History Quit Date: Year quit: 2019 Alcohol History Details: Alcohol intake frequency: former alcohol drinker Substance Use History: Use of substances other than those prescribed or required for medical reasons : No Advance Directives: Advance Directives: Yes Advance Directives Information Provided: No Advance Directives on File: Yes Advance Directives Date on File: 10/31/18 Nutrition Assessment: Recently lost weight without trying: No Occupation Assessmet: service: No Current occupational status: employed Current occupation: [employer] Medications and Allergies Current Medications: Current Medications Acetaminophen (Acetaminophen 325 Mg Tablet) 650 mg PO ONCE PINEDA Stop: 06/20/21 23:59 Last Admin: 06/20/21 10:19 Dose: 650 mg Documented by: Atropine Sulfate (Atropine Sulfate 1 Mg/Ml Vial) 0.5 mg SUBCUT ONCE PINEDA Stop: 06/20/21 23:59 Last Admin: 06/20/21 10:20 Dose: 0.5 mg Documented by: Diphenhydramine HCl (Diphenhydramine Hcl 25 Mg Tablet) 25 mg PO ONCE PINEDA Stop: 06/20/21 23:59 Last Admin: 06/20/21 10:19 Dose: 25 mg Documented by: Famotidine (Famotidine/Pf 20 Mg/2 Ml Vial) 20 mg IVPUSH ONCE PINEDA Stop: 06/20/21 23:59 Last Admin: 06/20/21 10:20 Dose: 20 mg Documented by: Dexamethasone Sodium Phosphate (Decadron) 12 mg in 50 mls @ 200 mls/hr IV ONCE PINEDA Stop: 06/20/21 23:59 Last Infusion: 06/20/21 10:35 Dose: Infused Documented by: Ondansetron HCl (Zofran) 16 mg in 50 mls @ 200 mls/hr IV ONCE PINEDA Stop: 06/20/21 23:59 Last Infusion: 06/20/21 10:35 Dose: Infused Documented by: Bevacizumab 365 mg/ Sodium (Chloride) 100 mls @ 200 mls/hr IV ONCE PINEDA Stop: 06/20/21 23:59 Last Infusion: 06/20/21 12:16 Dose: Infused Documented by: Irinotecan HCl 200 mg/ (Irinotecan HCl 50 mg/ Dextrose) 512.5 mls @ 341.667 mls/hr IV ONCE PINEDA Stop: 06/20/21 23:59 Last Admin: 06/20/21 12:25 Dose: 341.67 mls/hr Documented by: Home Medications Medication Instructions Recorded Confirmed Type loperamide 2 mg capsule 2 mg PO QID PRN 05/19/20 06/20/21 History Allergies Allergy/AdvReac Type Severity Reaction Status Date / Time prednisone [PREDNISONE] AdvReac Intermediate Psychosis Verified 06/20/21 09:58 Exam Vital signs: Vital Signs Temp 97.0 F 06/20/21 08:52 Pulse 73 06/20/21 08:52 Resp 17 06/20/21 08:52 BP 146/63 H 06/20/21 08:52 Pulse Ox 94 06/20/21 08:52 Intake & Output 06/19/21 06/20/21 06/20/21 18:59 06:59 18:59 Intake Total 200 / 200 Balance 200 / 200 Intake: Intake, IV Amount 200 / 200 Bevacizumab 365 mg In 0.9 % 100 / 100 Sodium Chloride 85.4 ml @ 200 mls/hr IV ONCE PINEDA Rx#: [id number] Ondansetron HCL/NS 16 mg In 50 50 / 50 ml @ 200 mls/hr IV ONCE PINEDA Rx# :[id number] dexAMETHasone sod phosphate/NS 50 / 50 12 mg In 50 ml @ 200 mls/hr IV ONCE PINEDA Rx#:[id number] Other: Weight 74 kg Weight in Grams 01505 Weight 74 kg Body Mass Index 22.7 - Constitutional Present: no acute distress - Routine HEENT Exam Head: Present: normal inspection - Routine Neck Exam Present: full ROM. Absent: lymphadenopathy - Routine Respiratory Exam Present: CTAB - Routine Cardiovascular Exam Cardiovascular: Present: RRR, S1, S2 - Routine Abdominal Exam Present: normal bowel sounds, soft. Absent: mass, organomegaly - Routine Extremities Exam Present: full ROM. Absent: calf tenderness, pedal edema - Routine Skin Exam Present: intact. Absent: cyanosis, erythema - Routine Neurological Exam Present: alert, oriented X3 Data - Labs CBC & Chem 7: 06/20/21 09:00 06/20/21 09:00 Labs: 05/19/20 00:00 Bevacizumab [Avastin] 400 mg Bevacizumab [Avastin] 150 mg 0.9 % Sodium Chloride [Ns] 78 ml IV ONCE Heparin Sodium,Porcine Flush 500 unit IVFLUSH ONCE Ondansetron ODT [Zofran ODT] 8 mg TRANSLINGU ONCE 05/19/20 10:55 Complete Blood Count Auto Diff Routine Comprehensive Met. Panel Routine Magnesium Routine 05/19/20 11:00 Creatinine Urine Routine UA and rflx microscopic Routine 06/09/20 00:00 Bevacizumab [Avastin] 400 mg Bevacizumab [Avastin] 150 mg 0.9 % Sodium Chloride [Ns] 78 ml IV ONCE Heparin Sodium,Porcine Flush 500 unit IVFLUSH ONCE Ondansetron ODT [Zofran ODT] 8 mg PO ONCE 06/09/20 09:40 Complete Blood Count Auto Diff Routine Comprehensive Met. Panel Routine Creatinine Urine Routine Magnesium Routine UA and rflx microscopic Routine 06/09/20 09:59 Acetaminophen [Tylenol] 650 mg PO ONCE ONE 07/05/20 00:00 Bevacizumab [Avastin] 400 mg Bevacizumab [Avastin] 150 mg 0.9 % Sodium Chloride [Ns] 78 ml IV ONCE Heparin Sodium,Porcine Flush 500 unit IVFLUSH ONCE Ondansetron ODT [Zofran ODT] 8 mg TRANSLINGU ONCE 07/05/20 10:00 Carcinoembryonic Antigen Routine Complete Blood Count Auto Diff Routine Comprehensive Met. Panel Routine Creatinine Urine Routine Magnesium Routine UA and rflx microscopic Routine 07/05/20 11:38 Acetaminophen [Tylenol] 650 mg PO ONCE ONE 08/02/20 00:00 Bevacizumab [Avastin] 400 mg Bevacizumab [Avastin] 175 mg 0.9 % Sodium Chloride [Ns] 77 ml IV ONCE Heparin Sodium,Porcine Flush 500 unit IVFLUSH ONCE Ondansetron ODT [Zofran ODT] 8 mg TRANSLINGU ONCE 08/02/20 10:20 CEA [Carcinoembryonic Antigen] Routine Complete Blood Count Auto Diff Routine Comprehensive Met. Panel Routine Creatinine Urine Routine Magnesium Routine UA and rflx microscopic Routine 08/02/20 11:37 Acetaminophen [Tylenol] 650 mg PO ONCE ONE 08/30/20 00:00 Bevacizumab [Avastin] 400 mg Bevacizumab [Avastin] 175 mg 0.9 % Sodium Chloride [Ns] 77 ml IV ONCE Heparin Sodium,Porcine Flush 500 unit IVFLUSH ONCE Ondansetron ODT [Zofran ODT] 8 mg TRANSLINGU ONCE 08/30/20 09:15 Carcinoembryonic Antigen Routine Complete Blood Count Auto Diff Routine Comprehensive Met. Panel Routine Magnesium Routine UA and rflx microscopic Routine 08/30/20 11:52 Creatinine Urine Routine 09/20/20 00:00 Bevacizumab [Avastin] 400 mg Bevacizumab [Avastin] 175 mg 0.9 % Sodium Chloride [Ns] 77 ml IV ONCE Heparin Sodium,Porcine Flush 500 unit IVFLUSH ONCE Ondansetron ODT [Zofran ODT] 8 mg TRANSLINGU ONCE 09/20/20 09:44 Complete Blood Count Auto Diff Routine Comprehensive Met. Panel Routine 09/20/20 09:55 UA w Microscopic Stat 10/11/20 00:00 Bevacizumab [Avastin] 400 mg Bevacizumab [Avastin] 175 mg 0.9 % Sodium Chloride [Ns] 77 ml IV ONCE Heparin Sodium,Porcine Flush 500 unit IVFLUSH ONCE Ondansetron ODT [Zofran ODT] 8 mg PO ONCE 10/11/20 09:25 CBC W/AUTO DIFF [Complete Blood Count Auto Diff] Routine CMP [Comprehensive [place]. Panel Fast] Routine Carcinoembryonic Antigen Routine 10/11/20 09:38 UA w Microscopic Routine 11/01/20 00:00 Bevacizumab [Avastin] 400 mg Bevacizumab [Avastin] 175 mg 0.9 % Sodium Chloride [Ns] 77 ml IV ONCE Heparin Sodium,Porcine Flush 500 unit IVFLUSH ONCE Ondansetron ODT [Zofran ODT] 8 mg TRANSLINGU ONCE 11/01/20 09:10 CMP [Comprehensive Met. Panel] Routine Complete Blood Count Auto Diff Routine UA w Microscopic Routine 11/22/20 00:00 Bevacizumab [Avastin] 400 mg Bevacizumab [Avastin] 175 mg 0.9 % Sodium Chloride [Ns] 77 ml IV ONCE Heparin Sodium,Porcine Flush 500 unit IVFLUSH ONCE Ondansetron ODT [Zofran ODT] 8 mg TRANSLINGU ONCE 11/22/20 09:10 CMP [Comprehensive Met. Panel] Routine Complete Blood Count Auto Diff Routine 11/22/20 09:20 UA w Microscopic Routine 12/13/20 00:00 Bevacizumab [Avastin] 400 mg Bevacizumab [Avastin] 175 mg 0.9 % Sodium Chloride [Ns] 77 ml IV ONCE Heparin Sodium,Porcine Flush 500 unit IVFLUSH ONCE Ondansetron ODT [Zofran ODT] 8 mg TRANSLINGU ONCE 12/13/20 08:55 CEA [Carcinoembryonic Antigen] Routine CMP [Comprehensive Met. Panel] Routine Complete Blood Count Auto Diff Routine 12/13/20 09:15 UA w Microscopic Routine 01/03/21 00:00 Acetaminophen [Tylenol] 650 mg PO ONCE Atropine Sulfate 0.5 mg SUBCUT ONCE Bevacizumab [Avastin] 386.5 mg 0.9 % Sodium Chloride [Ns] 84.54 ml IV ONCE Famotidine/PF [Pepcid/PF] 20 mg IVPUSH ONCE Irinotecan HCl [Camptosar] 350 mg Dextrose 5 % [D5w] 500 ml IV ONCE Ondansetron HCL/NS [Zofran] 16 mg in 50 ml IV ONCE dexAMETHasone sod phosphate/NS [Decadron] 12 mg in 50 ml IV ONCE diphenhydrAMINE HCL [Benadryl] 25 mg PO ONCE 01/03/21 09:00 Complete Blood Count Auto Diff Routine Comprehensive Met. Panel Routine Magnesium Routine UA w Microscopic Stat 01/03/21 13:46 Heparin Sodium,Porcine Flush 500 unit 0.9 % Sodium Chloride Flush [NS Flush] 5 ml IVFLUSH ONCE 01/03/21 14:56 Heparin Sodium,Porcine Flush 500 unit IVFLUSH .[facility]-MED ONE 01/17/21 00:00 Acetaminophen [Tylenol] 650 mg PO ONCE Atropine Sulfate 0.5 mg SUBCUT ONCE Famotidine/PF [Pepcid/PF] 20 mg IVPUSH ONCE Ondansetron HCL/NS [Zofran] 16 mg in 50 ml IV ONCE dexAMETHasone sod phosphate/NS [Decadron] 12 mg in 50 ml IV ONCE diphenhydrAMINE HCL [Benadryl] 25 mg PO ONCE 01/17/21 09:05 CBC W/AUTO DIFF [Complete Blood Count Auto Diff] Routine Comprehensive Met. Panel Routine Magnesium Routine SLIDE REVIEW Routine 01/17/21 09:20 Creatinine Urine Routine UA and rflx microscopic Routine 01/17/21 10:10 Heparin Sodium,Porcine Flush 500 unit 0.9 % Sodium Chloride Flush [NS Flush] 5 ml IVFLUSH ONCE 01/17/21 10:18 Heparin Sodium,Porcine Flush 500 unit IVFLUSH .STK-MED ONE 01/24/21 00:00 Acetaminophen [Tylenol] 650 mg PO ONCE Atropine Sulfate 0.5 mg SUBCUT ONCE Famotidine/PF [Pepcid/PF] 20 mg IVPUSH ONCE Irinotecan HCl [Camptosar] 250 mg Dextrose 5 % [D5w] 500 ml IV ONCE Ondansetron HCL/NS [Zofran] 16 mg in 50 ml IV ONCE dexAMETHasone sod phosphate/NS [Decadron] 12 mg in 50 ml IV ONCE diphenhydrAMINE HCL [Benadryl] 25 mg PO ONCE 01/24/21 08:50 UA w Microscopic Stat 01/24/21 09:00 Complete Blood Count Auto Diff Routine Comprehensive Met. Panel Routine 01/24/21 10:26 Heparin Sodium,Porcine Flush 500 unit 0.9 % Sodium Chloride Flush [NS Flush] 5 ml IVFLUSH ONCE 01/24/21 12:49 Heparin Sodium,Porcine Flush [address] ONE 02/07/21 00:00 Acetaminophen [Tylenol] 650 mg PO ONCE Atropine Sulfate 0.5 mg SUBCUT ONCE Bevacizumab [Avastin] 366.5 mg 0.9 % Sodium Chloride [Ns] 85.34 ml IV ONCE Famotidine/PF [Pepcid/PF] 20 mg IVPUSH ONCE Irinotecan HCl [Camptosar] 250 mg Dextrose 5 % [D5w] 500 ml IV ONCE Ondansetron HCL/NS [Zofran] 16 mg in 50 ml IV ONCE dexAMETHasone sod phosphate/NS [Decadron] 12 mg in 50 ml IV ONCE diphenhydrAMINE HCL [Benadryl] 25 mg PO ONCE 02/07/21 09:05 Carcinoembryonic Antigen Routine Complete Blood Count Auto Diff Routine Comprehensive Met. Panel Routine Magnesium Routine 02/07/21 09:40 Creatinine Urine Stat UA and rflx microscopic Stat 02/07/21 10:19 Add Laboratory Test Routine 02/07/21 11:27 Heparin Sodium,Porcine Flush 500 unit 0.9 % Sodium Chloride Flush [NS Flush] 5 ml IVFLUSH ONCE 02/07/21 13:06 Heparin Sodium,Porcine Flush 500 unit IVFLUSH .STK-MED ONE 02/21/21 00:00 Acetaminophen [Tylenol] 650 mg PO ONCE Atropine Sulfate 0.5 mg SUBCUT ONCE Bevacizumab [Avastin] 400 mg Bevacizumab [Avastin] 34.5 mg 0.9 % Sodium Chloride [Ns] 82.62 ml IV ONCE Famotidine/PF [Pepcid/PF] 20 mg IVPUSH ONCE Irinotecan HCl [Camptosar] 200 mg Irinotecan HCl [Camptosar] 50 mg Dextrose 5 % [D5w] 500 ml IV ONCE Ondansetron HCL/NS [Zofran] 16 mg in 50 ml IV ONCE dexAMETHasone sod phosphate/NS [Decadron] 12 mg in 50 ml IV ONCE diphenhydrAMINE HCL [Benadryl] 25 mg PO ONCE 02/21/21 09:10 CMP [Comprehensive Met. Panel] Routine Complete Blood Count Auto Diff Routine UA w Microscopic Stat 02/21/21 10:20 Heparin Sodium,Porcine Flush 500 unit 0.9 % Sodium Chloride Flush [NS Flush] 5 ml IVFLUSH ONCE 02/21/21 12:13 Heparin Sodium,Porcine Flush 500 unit IVFLUSH .[facility] ONE 03/07/21 00:00 Acetaminophen [Tylenol] 650 mg PO ONCE Atropine Sulfate 0.5 mg SUBCUT ONCE Bevacizumab [Avastin] 365 mg 0.9 % Sodium Chloride [Ns] 85.4 ml IV ONCE Famotidine/PF [Pepcid/PF] 20 mg IVPUSH ONCE Irinotecan HCl [Camptosar] 250 mg Dextrose 5 % [D5w] 500 ml IV ONCE Ondansetron HCL/NS [Zofran] 16 mg in 50 ml IV ONCE dexAMETHasone sod phosphate/NS [Decadron] 12 mg in 50 ml IV ONCE diphenhydrAMINE HCL [Benadryl] 25 mg PO ONCE 03/07/21 08:55 Creatinine Urine Routine UA and rflx microscopic Routine 03/07/21 09:10 Complete Blood Count Auto Diff Routine Comprehensive Met. Panel Routine Magnesium Routine 03/07/21 10:40 Heparin Sodium,Porcine Flush 500 unit 0.9 % Sodium Chloride Flush [NS Flush] 5 ml IVFLUSH ONCE 03/07/21 14:02 Heparin Sodium,Porcine Flush 500 unit IVFLUSH .ST[facility]-MED ONE 03/21/21 00:00 Acetaminophen [Tylenol] 650 mg PO ONCE Atropine Sulfate 0.5 mg SUBCUT ONCE Bevacizumab [Avastin] 365 mg 0.9 % Sodium Chloride [Ns] 85.4 ml IV ONCE Famotidine/PF [Pepcid/PF] 20 mg IVPUSH ONCE Irinotecan HCl [Camptosar] 200 mg Irinotecan HCl [Camptosar] 50 mg Dextrose 5 % [D5w] 500 ml IV ONCE Ondansetron HCL/NS [Zofran] 16 mg in 50 ml IV ONCE dexAMETHasone sod phosphate/NS [Decadron] 12 mg in 50 ml IV ONCE diphenhydrAMINE HCL [Benadryl] 25 mg PO ONCE 03/21/21 09:15 Complete Blood Count Auto Diff Routine Comprehensive Met. Panel Routine Creatinine Urine Routine Magnesium Routine UA and rflx microscopic Routine 03/21/21 13:17 Heparin Sodium,Porcine Flush 500 unit 0.9 % Sodium Chloride Flush [NS Flush] 5 ml IVFLUSH ONCE 03/21/21 13:50 Heparin Sodium,Porcine Flush 500 unit IVFLUSH .[facility] ONE 04/04/21 00:00 Acetaminophen [Tylenol] 650 mg PO ONCE Atropine Sulfate 0.5 mg SUBCUT ONCE Bevacizumab [Avastin] 365 mg 0.9 % Sodium Chloride [Ns] 85.4 ml IV ONCE Famotidine/PF [Pepcid/PF] 20 mg IVPUSH ONCE Irinotecan HCl [Camptosar] 200 mg Irinotecan HCl [Camptosar] 50 mg Dextrose 5 % [D5w] 500 ml IV ONCE Ondansetron HCL/NS [Zofran] 16 mg in 50 ml IV ONCE dexAMETHasone sod phosphate/NS [Decadron] 12 mg in 50 ml IV ONCE diphenhydrAMINE HCL [Benadryl] 25 mg PO ONCE 04/04/21 09:35 Carcinoembryonic Antigen Routine Complete Blood Count Auto Diff Routine Comprehensive Met. Panel Routine Magnesium Routine 04/04/21 10:10 Creatinine Urine Routine UA and rflx microscopic Routine 04/04/21 12:24 Heparin Sodium,Porcine Flush 500 unit 0.9 % Sodium Chloride Flush [NS Flush] 5 ml IVFLUSH ONCE 04/04/21 14:47 Heparin Sodium,Porcine Flush 500 unit IVFLUSH .[facility] ONE 04/20/21 00:00 Acetaminophen [Tylenol] 650 mg PO ONCE Atropine Sulfate 0.5 mg SUBCUT ONCE Bevacizumab [Avastin] 365 mg 0.9 % Sodium Chloride [Ns] 85.4 ml IV ONCE Famotidine/PF [Pepcid/PF] 20 mg IVPUSH ONCE Irinotecan HCl [Camptosar] 200 mg Irinotecan HCl [Camptosar] 50 mg Dextrose 5 % [D5w] 500 ml IV ONCE Ondansetron HCL/NS [Zofran] 16 mg in 50 ml IV ONCE dexAMETHasone sod phosphate/NS [Decadron] 12 mg in 50 ml IV ONCE diphenhydrAMINE HCL [Benadryl] 25 mg PO ONCE 04/20/21 09:30 Complete Blood Count Auto Diff Routine Comprehensive Met. Panel Routine 04/20/21 10:32 Opiate Screen Urine Stat UA and rflx microscopic Stat 04/20/21 12:55 Heparin Sodium,Porcine Flush 500 unit 0.9 % Sodium Chloride Flush [NS Flush] 5 ml IVFLUSH ONCE 04/20/21 13:07 Heparin Sodium,Porcine Flush 500 unit IVFLUSH .[facility] ONE 05/09/21 00:00 Acetaminophen [Tylenol] 650 mg PO ONCE Atropine Sulfate 0.5 mg SUBCUT ONCE Bevacizumab [Avastin] 365 mg 0.9 % Sodium Chloride [Ns] 85.4 ml IV ONCE Famotidine/PF [Pepcid/PF] 20 mg IVPUSH ONCE Irinotecan HCl [Camptosar] 200 mg Irinotecan HCl [Camptosar] 50 mg Dextrose 5 % [D5w] 500 ml IV ONCE Ondansetron HCL/NS [Zofran] 16 mg in 50 ml IV ONCE dexAMETHasone sod phosphate/NS [Decadron] 12 mg in 50 ml IV ONCE diphenhydrAMINE HCL [Benadryl] 25 mg PO ONCE 05/09/21 09:35 Complete Blood Count Auto Diff Routine Comprehensive Met. Panel Routine Creatinine Urine Stat Magnesium Routine UA w Microscopic Stat 05/09/21 14:42 Heparin Sodium,Porcine Flush 500 unit 0.9 % Sodium Chloride Flush [NS Flush] 5 ml IVFLUSH ONCE 05/09/21 14:52 Heparin Sodium,Porcine Flush 500 unit IVFLUSH .[facility] ONE 05/23/21 00:00 Acetaminophen [Tylenol] 650 mg PO ONCE Atropine Sulfate 0.5 mg SUBCUT ONCE Famotidine/PF [Pepcid/PF] 20 mg IVPUSH ONCE Ondansetron HCL/NS [Zofran] 16 mg in 50 ml IV ONCE dexAMETHasone sod phosphate/NS [Decadron] 12 mg in 50 ml IV ONCE diphenhydrAMINE HCL [Benadryl] 25 mg PO ONCE 05/25/21 00:00 Acetaminophen [Tylenol] 650 mg PO ONCE Atropine Sulfate 0.5 mg SUBCUT ONCE Bevacizumab [Avastin] 365 mg 0.9 % Sodium Chloride [Ns] 85.4 ml IV ONCE Famotidine/PF [Pepcid/PF] 20 mg IVPUSH ONCE Irinotecan HCl [Camptosar] 200 mg Irinotecan HCl [Camptosar] 50 mg Dextrose 5 % [D5w] 500 ml IV ONCE Ondansetron HCL/NS [Zofran] 16 mg in 50 ml IV ONCE dexAMETHasone sod phosphate/NS [Decadron] 12 mg in 50 ml IV ONCE diphenhydrAMINE HCL [Benadryl] 25 mg PO ONCE 05/25/21 09:25 Complete Blood Count Auto Diff Routine Comprehensive Met. Panel Routine Magnesium Routine 05/25/21 09:30 Creatinine Urine Routine UA and rflx microscopic Routine 05/25/21 13:38 Heparin Sodium,Porcine Flush 500 unit 0.9 % Sodium Chloride Flush [NS Flush] 5 ml IVFLUSH ONCE 05/25/21 13:47 Heparin Sodium,Porcine Flush 500 unit IVFLUSH .[facility] ONE 06/08/21 00:00 Acetaminophen [Tylenol] 650 mg PO ONCE Atropine Sulfate 0.5 mg SUBCUT ONCE Bevacizumab [Avastin] 365 mg 0.9 % Sodium Chloride [Ns] 85.4 ml IV ONCE Famotidine/PF [Pepcid/PF] 20 mg IVPUSH ONCE Irinotecan HCl [Camptosar] 200 mg Irinotecan HCl [Camptosar] 50 mg Dextrose 5 % [D5w] 500 ml IV ONCE Ondansetron HCL/NS [Zofran] 16 mg in 50 ml IV ONCE dexAMETHasone sod phosphate/NS [Decadron] 12 mg in 50 ml IV ONCE diphenhydrAMINE HCL [Benadryl] 25 mg PO ONCE 06/08/21 10:00 Complete Blood Count Auto Diff Routine Comprehensive Met. Panel Routine Magnesium Routine 06/08/21 10:11 Creatinine Urine Routine UA and rflx microscopic Routine 06/08/21 14:06 Heparin Sodium,Porcine Flush 500 unit 0.9 % Sodium Chloride Flush [NS Flush] 5 ml IVFLUSH ONCE 06/08/21 14:11 Heparin Sodium,Porcine Flush 500 unit IVFLUSH .[facility]-MED ONE 06/20/21 08:45 UA w Microscopic Stat 06/20/21 09:00 CBC W/AUTO DIFF [Complete Blood Count Auto Diff] Stat Carcinoembryonic Antigen Stat Comprehensive Met. Panel Stat 06/20/21 10:41 Heparin Sodium,Porcine Flush 500 unit 0.9 % Sodium Chloride Flush [NS Flush] 5 ml IVFLUSH ONCE 06/20/21 12:13 Heparin Sodium,Porcine Flush 500 unit IVFLUSH .[facility]-MED ONE 06/20/21 12:14 Add Laboratory Test Routine Laboratory Last Values WBC 2.7 X10*3/uL (4.8-10.8) L 06/20/21 09:00 RBC 3.40 X10*6/uL (4.60-5.80) L 06/20/21 09:00 Hgb 10.5 g/dl (14.0-18.0) L 06/20/21 09:00 Hct 32.6 % (42.0-52.0) L 06/20/21 09:00 MCV 95.9 fL (80.0-98.0) 06/20/21 09:00 MCH 30.9 pg (27.0-33.0) 06/20/21 09:00 MCHC 32.2 g/dl (31.0-36.0) 06/20/21 09:00 RDW 16.2 % (11.0-16.0) H 06/20/21 09:00 Plt Count 147 X10*3/uL (160-400) L 06/20/21 09:00 MPV 12.0 fL (9.4-12.4) 06/20/21 09:00 Immature Gran % (Auto) 0.0 % (0.0-0.4) 06/20/21 09:00 Neut % (Auto) 57.4 % (45-73) 06/20/21 09:00 Lymph % (Auto) 25.5 % (20-40) 06/20/21 09:00 Leake % (Auto) 12.0 % (2-11) H 06/20/21 09:00 Eos % (Auto) 4.7 % (0-4) H 06/20/21 09:00 Baso % (Auto) 0.4 % (0-2) 06/20/21 09:00 Neut # (Auto) 4.0 X10*3/uL (2.0-8.3) 05/19/20 10:55 Lymph # (Auto) 0.7 X10*3/uL (1.2-4.9) L 06/20/21 09:00 Leake # (Auto) 0.3 X10*3/uL (0.1-1.2) 06/20/21 09:00 Eos # (Auto) 0.1 X10*3/uL (0.0-0.4) 06/20/21 09:00 Baso # (Auto) 0.0 X10*3/uL (0.0-0.2) 06/20/21 09:00 Abs Immat Gran (auto) 0.00 X10*3/uL (0.00-0.03) 06/20/21 09:00 Absolute Neuts (auto) 1.6 x10*3/uL (2.0-8.3) L 06/20/21 09:00 Absolute Nucleated RBC 0.000 X10*3/uL (0.0-0.012) 06/20/21 09:00 Nucleated RBC % (auto) 0.0 /100WBC (0.0-0.2) 06/20/21 09:00 Smear Path Review SEE NOTE 11/22/20 09:10 Smear Tech's Comments VERIFIED 01/17/21 09:05 Sodium 136 mmol/L (135-145) 06/20/21 09:00 Potassium 4.0 mmol/L (3.3-5.1) 06/20/21 09:00 Chloride 107 mmol/L (96-108) 06/20/21 09:00 Carbon Dioxide 23 mmol/L (22-29) 06/20/21 09:00 Anion Gap 10 (12-20) L 06/20/21 09:00 BUN 10 mg/dL (9-16) 06/20/21 09:00 Creatinine 0.78 mg/dL (0.5-1.4) 06/20/21 09:00 Estim Creat Clear Calc 101.4 06/20/21 09:00 Estimated GFR > 60 06/20/21 09:00 Random Glucose 110 mg/dL (60-115) 06/20/21 09:00 Fasting Glucose 98 mg/dL (60-99) 10/11/20 09:25 Calcium 8.1 mg/dL (8.4-10.2) L D 06/20/21 09:00 Magnesium 1.9 mg/dL (1.6-2.6) 06/08/21 10:00 Total Bilirubin 0.8 mg/dL (0.0-1.0) 06/20/21 09:00 AST 34 U/L (5-37) 06/20/21 09:00 ALT 27 U/L (0-40) 06/20/21 09:00 Alkaline Phosphatase 96 U/L (39-117) 06/20/21 09:00 Total Protein 6.1 g/dL (6.5-8.0) L 06/20/21 09:00 Albumin 3.5 g/dL (3.5-5.0) 06/20/21 09:00 Carcinoembryonic Ag 1.60 ng/mL 06/20/21 09:00 Urine Color YELLOW 06/20/21 08:45 Urine Appearance CLEAR 06/20/21 08:45 Urine pH 6.0 (5.0-8.0) 06/20/21 08:45 Ur Specific [place] >= 1.030 (1.005-1.025) H 06/20/21 08:45 Urine Protein NEG MG/DL (NEG-TRACE) 06/20/21 08:45 Urine Glucose (UA) NEG MG/DL (NEG) 06/20/21 08:45 Urine Ketones NEG MG/DL (NEG) 06/20/21 08:45 Urine Blood NEG (NEG) 06/20/21 08:45 Urine Nitrite NEG (NEG) 06/20/21 08:45 Ur Leukocyte Esterase NEG (NEG) 06/20/21 08:45 Urine RBC 0 /HPF (0) 06/20/21 08:45 Urine WBC 0-2 /HPF (0-4) 06/20/21 08:45 Ur Squamous Epith Cells NONE /LPF 06/20/21 08:45 Ur Renal Epithelial Cell 1+ /LPF 09/20/20 09:55 Urine Bacteria NONE /LPF 06/20/21 08:45 Urine Mucus TRACE /LPF 01/03/21 09:00 Urine Creatinine 265.84 mg/dL 06/08/21 10:11 Urine Opiates Screen POSITIVE (Not Detect) H 04/20/21 10:32 Assessment and Plan Patient Active problem list reviewed?: Yes (1) Colon cancer metastasized to liver Status: Chronic Assessment and plan: 1. This is a 61-year-old gentleman, with metastatic colon carcinoma, with liver and lung metastases. Biopsy of the liver lesion, Moderately differentiated adenocarcinoma. KRAS and BRAF negative. NRAS negative, MSI proficient or MSI stable. HER2 and panTRK negative. Initial CEA elevated at 91. He developed bowel obstruction, palliative bypass ileostomy has been performed in November 2018. He started on mFOLFOX/Avastin regimen from 11/27/2018. His last treatment cycle 13 was on 05/14/2019. He was on maintenance Xeloda 1500 mg p.o. b.i.d. 2 weeks on/1 week off, along with bevacizumab Q 3 weeks starting 10/22/2019 until 12/13/2020. Rising CEA as well as imaging in November 2020 showed evidence of progressive disease. He started irinotecan with bevacizumab from December 2020. He is tolerating treatment well. CEA level has come back down. Proceed with treatment today. 2. 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 He has been tapered off prednisone and CellCept. He is also off the oxygen. 3. Chronic arthralgias. He is on MSContin 30 mg b.i.d. he is on oxycodone 5 mg for breakthrough pain 2 to 3 times a day. 4. Intermittent elevation of bilirubin, indirect bilirubinemia, probable Gilbert's syndrome. Follow-up in 3 weeks. - Time Spent With Patient Time Spent with Patient (in minutes): 15
--- NOTE | 2021-06-20 15:28 | MHC.HEMONC ---
Pt here for C12D1 Avastin/Irinotecan. Port accessed with blood return noted. Blood drawn from port-specimen to lab. Pt states his neuropathy has improved. Continues with some fatigue, loose stools and occasional nausea. Lab results reviewed-calcium 8.[address] Mckee. Okay to receive treatment today. Pre medicated with decadron 12mg IV, Tylenol 650mg orally, zofran 16mg IV, pepcid 20mg IV, Atropine 0.5mg SC in right arm-tolerated well. Avastin/Irinotecan given as ordered-tolerated well. Port flushed with heparin and de accessed. Dr Mckee into see pt. Follow up appointment scheduled. Discharge packet given.
[2021-07-04 09:31] VITALS: BP 121/69; PULSE 82; RESP 18; TEMP 36.5; O2SAT 94; BMI 22.1
[2021-07-04 09:38] LABS: MANUAL DIFF FLAG NO
[2021-07-04 09:39] LABS: Appearance Urine HAZY; Color Urine YELLOW; Glucose Urine UA NEG (NEG); Leukocyte Esterase Urine NEG (NEG); Nitrite Urine NEG (NEG); Specific Gravity - Urine >= 1.030 (1.005-1.025); Urine Blood NEG (NEG); Urine Ketones NEG (NEG); Urine Protein TRACE MG/DL (NEG-TRACE)
[2021-07-04 09:40] LABS: Basophils Percent Auto 0.5 % (0-2); Eosinophils Absolute Auto 0.2 X10*3/uL (0.0-0.4); Eosinophils Percent Auto 3.9 % (0-4); Hematocrit 34.6 % (42.0-52.0); Hemoglobin 11.1 g/dl (14.0-18.0); Imm Gran Abs Auto 0.01 X10*3/uL (0.00-0.03); Imm Gran Pct Auto 0.3 % (0.0-0.4); Lymphocytes Absolute Auto 0.9 X10*3/uL (1.2-4.9); Lymphocytes Percent Auto 24.3 % (20-40); Mean Corpuscular HGB Conc 32.1 g/dl (31.0-36.0); Mean Corpuscular Hemoglobin 30.6 pg (27.0-33.0); Mean Corpuscular Volume 95.3 fL (80.0-98.0); Mean Platelet Volume 12.3 fL (9.4-12.4); Monocytes Absolute Auto 0.5 X10*3/uL (0.1-1.2); Monocytes Percent Auto 12.5 % (2-11); Neutrophils Absolute Auto 2.2 x10*3/uL (2.0-8.3); Neutrophils Percent Auto 58.5 % (45-73); Platelet Count 187 X10*3/uL (160-400); Red Blood Count 3.63 X10*6/uL (4.60-5.80); Red Cell Distribution Width 16.3 % (11.0-16.0); White Blood Count 3.8 X10*3/uL (4.8-10.8)
[2021-07-04 09:54] LABS: Alanine Aminotransferase 26 U/L (0-40); Albumin Level 3.6 g/dL (3.5-5.0); Alkaline Phosphatase 90 U/L (39-117); Anion Gap 13 (12-20); Aspartate Amino Transferase 34 U/L (5-37); Bilirubin Total 1.2 mg/dL (0.0-1.0); Blood Urea Nitrogen 15 mg/dL (9-16); Calcium 8.2 mg/dL (8.4-10.2); Carbon Dioxide 21 mmol/L (22-29); Chloride 108 mmol/L (96-108); Creatinine Clr Calc Pharmacy 92.8; Estimated Glomerular Filt Rate > 60; Glucose Random 127 mg/dL (60-115); Potassium 3.6 mmol/L (3.3-5.1); Sodium 138 mmol/L (135-145); Total Protein 6.2 g/dL (6.5-8.0)
[2021-07-04] MEDS: dexAMETHasone sod phosphate/NS 12 MG/50 ML PIGGYBACK 200 MG IV (10:14)
[2021-07-04] MEDS: Famotidine/PF 20 MG/2 ML VIAL IVPUSH (10:15)
[2021-07-04] MEDS: diphenhydrAMINE HCL 25 MG TABLET PO (10:15)
[2021-07-04] MEDS: Atropine Sulfate 1 MG/ML VIAL 0.5 MG SUBCUT (10:15)
[2021-07-04] MEDS: Acetaminophen 325 MG TABLET 650 MG PO (10:15)
[2021-07-04] MEDS: DEXTROSE 5% IV (11:15)
[2021-07-04] MEDS: IRINOTECAN HCL IV (11:15)
--- NOTE | 2021-07-04 15:20 | MHC.HEMONC ---
Pt here for C13D1 Avastin/Irinotecan. Pt states he had constipation over last few days-states passed a boyd colored stool rectally, states colostomy bag stool has been formed as well. Pt states he spoke with Dr Borja over the weekend to inform him of constipation. Plan for pt to have CT abdomen/pelvis. Dr Mckee notified-plan to hold Avastin today until results of CT are available. Port accessed with blood return noted-specimen to lab. Pt states he has had constipation and continued numbness in feet on occasion. Lab results reviewed okay to receive treatment today. Pre medicated with tylenol, atropine, decadron, benadryl, pepcid, zofran. Irinotecan given as ordered-tolerated well. Port flushed with heparin and de accessed. Follow up appointment scheduled. Discharge packet given.
[2021-07-18 09:45] LABS: MANUAL DIFF FLAG NO
[2021-07-18 09:47] LABS: Appearance Urine CLEAR; Color Urine YELLOW; Glucose Urine UA NEG (NEG); Leukocyte Esterase Urine NEG (NEG); Nitrite Urine NEG (NEG); Specific Gravity - Urine 1.015 (1.005-1.025); Urine Blood NEG (NEG); Urine Ketones NEG (NEG); Urine Protein NEG (NEG-TRACE)
[2021-07-18 09:49] VITALS: BP 95/68; PULSE 81; RESP 17; TEMP 36.7; O2SAT 95; BMI 22.8
[2021-07-18 09:50] LABS: Basophils Percent Auto 0.4 % (0-2); Eosinophils Absolute Auto 0.1 X10*3/uL (0.0-0.4); Eosinophils Percent Auto 3.1 % (0-4); Hematocrit 33.7 % (42.0-52.0); Hemoglobin 10.6 g/dl (14.0-18.0); Imm Gran Abs Auto 0.01 X10*3/uL (0.00-0.03); Imm Gran Pct Auto 0.2 % (0.0-0.4); Lymphocytes Absolute Auto 0.9 X10*3/uL (1.2-4.9); Lymphocytes Percent Auto 19.4 % (20-40); Mean Corpuscular HGB Conc 31.5 g/dl (31.0-36.0); Mean Corpuscular Hemoglobin 30.5 pg (27.0-33.0); Mean Corpuscular Volume 96.8 fL (80.0-98.0); Mean Platelet Volume 11.7 fL (9.4-12.4); Monocytes Absolute Auto 0.6 X10*3/uL (0.1-1.2); Monocytes Percent Auto 13.2 % (2-11); Neutrophils Absolute Auto 2.9 x10*3/uL (2.0-8.3); Neutrophils Percent Auto 63.7 % (45-73); Platelet Count 167 X10*3/uL (160-400); Red Blood Count 3.48 X10*6/uL (4.60-5.80); Red Cell Distribution Width 17.1 % (11.0-16.0); White Blood Count 4.5 X10*3/uL (4.8-10.8)
[2021-07-18 10:02] LABS: Alanine Aminotransferase 26 U/L (0-40); Albumin Level 3.4 g/dL (3.5-5.0); Alkaline Phosphatase 90 U/L (39-117); Anion Gap 12 (12-20); Aspartate Amino Transferase 35 U/L (5-37); Bilirubin Total 0.9 mg/dL (0.0-1.0); Blood Urea Nitrogen 6 mg/dL (9-16); Calcium 8.8 mg/dL (8.4-10.2); Carbon Dioxide 22 mmol/L (22-29); Chloride 109 mmol/L (96-108); Creatinine Clr Calc Pharmacy 103.3; Estimated Glomerular Filt Rate > 60; Glucose Random 105 mg/dL (60-115); Sodium 139 mmol/L (135-145); Total Protein 6.3 g/dL (6.5-8.0)
[2021-07-18] MEDS: Acetaminophen 325 MG TABLET 650 MG PO (10:24)
[2021-07-18] MEDS: diphenhydrAMINE HCL 25 MG TABLET PO (10:24)
[2021-07-18] MEDS: Famotidine/PF 20 MG/2 ML VIAL IVPUSH (10:25)
[2021-07-18] MEDS: dexAMETHasone sod phosphate/NS 12 MG/50 ML PIGGYBACK 200 MG IV (10:27)
[2021-07-18] MEDS: Atropine Sulfate 1 MG/ML VIAL 0.5 MG SUBCUT (10:29)
--- NOTE | 2021-07-18 11:15 | P.PNHO_ITS ---
Medical Summary - Medical Summary Date of Service: 07/18/21 Chief complaint: follow-up Medical Summary: Metastatic colon cancer diagnosed in October 2018. Presented with abdominal pain, 30 pound weight loss and severe pain. He had abnormal colonoscopy in 2009. He was told he needed a repeat colonoscopy in 5 years but he did not go for testing. CT abdomen/pelvis with IV contrast shows multiple areas of wall thickening in the sigmoid colon as well as thickening and enhancement of cecum, terminal ileum. Long segment of wall thickening of the distal transverse colon and left colon. Enlarged mesenteric and retroperitoneal lymph nodes, multiple liver metastasis and lung metastasis, all of these worrisome for metastatic colorectal malignancy. 11/01/18-Core biopsy of the right liver mass, moderately differentiated adenocarcinoma consistent with colorectal primary. KRAS mutation not detected BRAF mutation not detected. NRAS negative, MSI proficient or MSI stable. He developed bowel obstruction, palliative bypass ileostomy has been performed in November 2018. He started on mFOLFOX/Avastin regimen from 11/27/2018. His last treatment cycle 13 was on 05/14/2019. 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 Repeat CT abdomen/pelvis on 09/18/2019 showed further decrease in size of liver metastasis. He was on maintenance Xeloda 1500 mg p.o. b.i.d. 2 weeks on/1 week off, along with bevacizumab Q 3 weeks starting 10/22/2019 until 12/13/2020. Rising CEA as well as imaging in November 2020 showed evidence of progressive disease. He started irinotecan with bevacizumab from December 2020. Interval History Interval history: Patient is here in follow-up and scheduled treatment. He reports rectal discomfort. He has an appointment to see Dr. Borja. He had to disimpact himself a few days ago. He denies hematochezia, he also denies any blood from the ostomy or difficulty around the ostomy site. He has not been eating a as well as before and he does admit to mild weight loss. He denies fever or chills. No chest pain, shortness of breath or cough. Review of Systems - Constitutional Reports as per HPI, Reports no additional constitutional complaints - Cardiovascular Reports no additional cardiovascular complaints - Respiratory Reports no additional respiratory complaints - Gastrointestinal Reports no additional gastrointestinal complaints [facility] Medical History: Medical History (Last Updated 02/04/21 @ 13:55 by Shravan Mcginnis MD) Chronic respiratory failure ILD (interstitial lung disease) Pulmonary fibrosis Pulmonary nodule Tubular adenoma Family History: Family History (Last Updated 05/19/20 @ 16:28 by Simona Alanis RN) Son Cystic fibrosis Brother Esophageal cancer Maternal Aunt Lung cancer Surgical History: Surgical History (Last Updated 05/19/20 @ 16:24 by Simona Alanis, RN) H/O knee surgery Social History: Social History (Last Updated 05/19/20 @ 16:27 by Simona Alanis, RN) Living Situation History: Household Members: Spouse Household Members: Children Alcohol History Quit Date: Year quit: 2019 Alcohol History Details: Alcohol intake frequency: former alcohol drinker Substance Use History: Use of substances other than those prescribed or required for medical reasons : No Advance Directives: Advance Directives: Yes Advance Directives Information Provided: No Advance Directives on File: Yes Advance Directives Date on File: 10/31/18 Nutrition Assessment: Recently lost weight without trying: No Occupation Assessmet: service: No Current occupational status: employed Current occupation: [employer] Oncology 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 Performance Status ECOG Performance Status: 1 Home Medications and Allergies Current Medications: Current Medications Acetaminophen (Acetaminophen 325 Mg Tablet) 650 mg PO ONCE PINEDA Stop: 07/18/21 23:59 Atropine Sulfate (Atropine Sulfate 1 Mg/Ml Vial) 0.5 mg SUBCUT ONCE PINEDA Stop: 07/18/21 23:59 Diphenhydramine HCl (Diphenhydramine Hcl 25 Mg Tablet) 25 mg PO ONCE PINEDA Stop: 07/18/21 23:59 Famotidine (Famotidine/Pf 20 Mg/2 Ml Vial) 20 mg IVPUSH ONCE PINEDA Stop: 07/18/21 23:59 Heparin Sodium (Porcine) (Heparin Sodium,Porcine Flush 500 Unit/5 Ml Syringe) 500 unit IVFLUSH ONCE PINEDA Stop: 07/18/21 23:59 Dexamethasone Sodium Phosphate (Decadron) 12 mg in 50 mls @ 200 mls/hr IV ONCE PINEDA Stop: 07/18/21 23:59 Ondansetron HCl (Zofran) 16 mg in 50 mls @ 200 mls/hr IV ONCE PINEDA Stop: 07/18/21 23:59 Bevacizumab 370 mg/ Sodium (Chloride) 100 mls @ 200 mls/hr IV ONCE PINEDA Stop: 07/18/21 23:59 Irinotecan HCl 250 mg/ (Dextrose) 512.5 mls @ 341.667 mls/hr IV ONCE PINEDA Home Medications Medication Instructions Recorded Confirmed Type loperamide 2 mg capsule 2 mg PO QID PRN 05/19/20 07/18/21 History Allergies Allergy/AdvReac Type Severity Reaction Status Date / Time prednisone [PREDNISONE] AdvReac Intermediate Psychosis Verified 07/18/21 09:52 Exam Vital signs: Vital Signs Temp 98.1 F 07/18/21 09:49 Pulse 81 07/18/21 09:49 Resp 17 07/18/21 09:49 BP 95/68 07/18/21 09:49 Pulse Ox 95 07/18/21 09:49 Intake & Output 07/17/21 07/18/21 07/18/21 18:59 06:59 18:59 Other: Weight 74.4 kg [place] Weight in Grams [address]66 Weight 74.4 kg BMI result Body Mass Index 22.8 - Constitutional Present: no acute distress - Routine HEENT Exam Head: Present: normal inspection - Routine Neck Exam Present: full ROM. Absent: lymphadenopathy - Routine Respiratory Exam Present: CTAB - Routine Cardiovascular Exam Cardiovascular: Present: RRR, S1, S2 - Routine Abdominal Exam Present: normal bowel sounds, soft. Absent: mass, organomegaly - Routine Extremities Exam Present: full ROM. Absent: calf tenderness, pedal edema - Routine Skin Exam Present: intact. Absent: cyanosis, erythema - Routine Neurological Exam Present: alert, oriented X3 Data - Labs CBC & Chem 7: 07/18/21 09:15 07/18/21 09:15 Assessment and Plan Patient Active problem list reviewed?: Yes (1) Colon cancer metastasized to liver Status: Chronic Assessment and plan: 1. This is a 61-year-old gentleman, with metastatic colon carcinoma, with liver and lung metastases. Biopsy of the liver lesion, Moderately differentiated adenocarcinoma. KRAS and BRAF negative. NRAS negative, MSI proficient or MSI stable. HER2 and panTRK negative. Initial CEA elevated at 91. He developed bowel obstruction, palliative bypass ileostomy has been performed in November 2018. He started on mFOLFOX/Avastin regimen from 11/27/2018. His last treatment cycle 13 was on 05/14/2019. He was on maintenance Xeloda 1500 mg p.o. b.i.d. 2 weeks on/1 week off, along with bevacizumab Q 3 weeks starting 10/22/2019 until 12/13/2020. Rising CEA as well as imaging in November 2020 showed evidence of progressive disease. He started irinotecan with bevacizumab from December 2020. He is tolerating treatment well. 2. 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 He has been tapered off prednisone and CellCept. He is also off the oxygen. 3. Chronic arthralgias. He is on MSContin 30 mg b.i.d. he is on oxycodone 5 mg for breakthrough pain 2 to 3 times a day. 4. Intermittent elevation of bilirubin, indirect bilirubinemia, probable Gilbert's syndrome. 5. Iron deficiency anemia. He was advised to start oral iron. This is probably related to inadequate dietary intake as well as some gastrointestinal blood losses. Follow-up in 3 weeks. - Time Spent With Patient Time Spent with Patient (in minutes): 15
[2021-07-18] MEDS: SODIUM CHLORIDE 0.9% IV (11:38)
[2021-07-18] MEDS: BEVACIZUMAB IV (11:38)
[2021-07-18] MEDS: IRINOTECAN HCL IV (12:18)
[2021-07-18] MEDS: DEXTROSE 5% IV (12:18)
--- NOTE | 2021-07-18 14:30 | MHC.HEMONC ---
Pt here for C14D1 Avastin/Irinotecan. Port accessed with blood return noted. Labs drawn from port-specimen to lab. Pt states he conitinues to walk his dog for 40 minutes and has some fatigue after walking. States had a blockage in his ostomy- which has passed.Has appointment with Dr Borja on Sunday. Lab results reviewed-okay to receive treatment today. Pre medicated with tylenol, benadryl, pepcid, atropine sulfate SC, decadron, zofran. Avastin/Irinotecan given as ordered-tolerated well. Port flushed with heparin and de accessed. Follow up appointment scheduled. Dr Mckee into see pt. Discharge packet given.
[2021-08-01 09:10] VITALS: BP 106/59; PULSE 81; RESP 18; TEMP 36.1; O2SAT 94; BMI 22.5
[2021-08-01 09:31] LABS: MANUAL DIFF FLAG NO
[2021-08-01 09:42] LABS: Appearance Urine CLEAR; Color Urine YELLOW; Glucose Urine UA NEG (NEG); Leukocyte Esterase Urine NEG (NEG); Nitrite Urine NEG (NEG); Urine Blood NEG (NEG); Urine Ketones NEG (NEG); Urine Protein NEG (NEG-TRACE)
[2021-08-01 09:50] LABS: Basophils Percent Auto 0.4 % (0-2); Eosinophils Absolute Auto 0.2 X10*3/uL (0.0-0.4); Eosinophils Percent Auto 4.7 % (0-4); Hematocrit 37.2 % (42.0-52.0); Hemoglobin 11.9 g/dl (14.0-18.0); Imm Gran Abs Auto 0.01 X10*3/uL (0.00-0.03); Imm Gran Pct Auto 0.2 % (0.0-0.4); Lymphocytes Absolute Auto 1.4 X10*3/uL (1.2-4.9); Lymphocytes Percent Auto 30.1 % (20-40); Mean Corpuscular Hemoglobin 31.3 pg (27.0-33.0); Mean Corpuscular Volume 97.9 fL (80.0-98.0); Mean Platelet Volume 12.2 fL (9.4-12.4); Monocytes Absolute Auto 0.5 X10*3/uL (0.1-1.2); Monocytes Percent Auto 11.1 % (2-11); Neutrophils Absolute Auto 2.4 x10*3/uL (2.0-8.3); Neutrophils Percent Auto 53.5 % (45-73); Platelet Count 161 X10*3/uL (160-400); Red Cell Distribution Width 17.3 % (11.0-16.0); White Blood Count 4.5 X10*3/uL (4.8-10.8)
[2021-08-01 10:07] LABS: Alanine Aminotransferase 29 U/L (0-40); Albumin Level 3.5 g/dL (3.5-5.0); Alkaline Phosphatase 100 U/L (39-117); Anion Gap 10 (12-20); Aspartate Amino Transferase 37 U/L (5-37); Bilirubin Total 1.1 mg/dL (0.0-1.0); Blood Urea Nitrogen 10 mg/dL (9-16); Calcium 8.9 mg/dL (8.4-10.2); Carbon Dioxide 25 mmol/L (22-29); Chloride 107 mmol/L (96-108); Creatinine Clr Calc Pharmacy 101.6; Estimated Glomerular Filt Rate > 60; Glucose Random 98 mg/dL (60-115); Potassium 4.2 mmol/L (3.3-5.1); Sodium 138 mmol/L (135-145); Total Protein 6.3 g/dL (6.5-8.0)
[2021-08-01] MEDS: Acetaminophen 325 MG TABLET 650 MG PO (10:36)
[2021-08-01] MEDS: diphenhydrAMINE HCL 25 MG TABLET PO (10:36)
[2021-08-01] MEDS: Famotidine/PF 20 MG/2 ML VIAL IVPUSH (10:37)
[2021-08-01] MEDS: dexAMETHasone sod phosphate/NS 12 MG/50 ML PIGGYBACK 200 MG IV (10:37)
[2021-08-01] MEDS: Atropine Sulfate 1 MG/ML VIAL 0.5 MG SUBCUT (10:38)
[2021-08-01] MEDS: BEVACIZUMAB IV (11:47)
[2021-08-01] MEDS: SODIUM CHLORIDE 0.9% IV (11:47)
[2021-08-01] MEDS: DEXTROSE 5% IV (12:41)
[2021-08-01] MEDS: IRINOTECAN HCL IV (12:41)
--- NOTE | 2021-08-01 14:23 | MHC.HEMONC ---
Pt here for C15D1 Avastin/Irinotecan. Urine specimen obtained-sent to lab. Port accessed with blood return noted. Labs drawn from port-specimen to lab. Pt states he continues with intermittent numbness in hands and feet. Lab results reviewed-okay to receive treatment today. Pre medicated with tylenol, benadryl, pepcid, decadron, zofran, atropine sulfate SC in right arm. Avastin/Irinotecan given as ordered-tolerated well. Port flushed with heparin and de accessed. Follow up appointment scheduled. Discharge packet given.
[2021-08-15 09:07] VITALS: BP 111/69; PULSE 92; RESP 18; TEMP 36.1; O2SAT 100; BMI 22.2
[2021-08-15 09:20] LABS: MANUAL DIFF FLAG NO
[2021-08-15 09:23] LABS: Basophils Percent Auto 0.2 % (0-2); Eosinophils Absolute Auto 0.1 X10*3/uL (0.0-0.4); Eosinophils Percent Auto 3.4 % (0-4); Hematocrit 35.8 % (42.0-52.0); Hemoglobin 11.3 g/dl (14.0-18.0); Imm Gran Abs Auto 0.01 X10*3/uL (0.00-0.03); Imm Gran Pct Auto 0.2 % (0.0-0.4); Lymphocytes Absolute Auto 0.8 X10*3/uL (1.2-4.9); Lymphocytes Percent Auto 18.3 % (20-40); Mean Corpuscular HGB Conc 31.6 g/dl (31.0-36.0); Mean Corpuscular Hemoglobin 30.5 pg (27.0-33.0); Mean Corpuscular Volume 96.5 fL (80.0-98.0); Mean Platelet Volume 12.5 fL (9.4-12.4); Monocytes Absolute Auto 0.4 X10*3/uL (0.1-1.2); Monocytes Percent Auto 10.3 % (2-11); Neutrophils Absolute Auto 2.8 x10*3/uL (2.0-8.3); Neutrophils Percent Auto 67.6 % (45-73); Platelet Count 144 X10*3/uL (160-400); Red Blood Count 3.71 X10*6/uL (4.60-5.80); Red Cell Distribution Width 17.2 % (11.0-16.0); White Blood Count 4.1 X10*3/uL (4.8-10.8)
[2021-08-15 09:32] LABS: Appearance Urine CLEAR; Color Urine YELLOW; Glucose Urine UA NEG (NEG); Leukocyte Esterase Urine NEG (NEG); Nitrite Urine NEG (NEG); PH 5.5 (5.0-8.0); Urine Blood NEG (NEG); Urine Ketones NEG (NEG); Urine Protein NEG (NEG-TRACE)
[2021-08-15 09:39] LABS: Alanine Aminotransferase 32 U/L (0-40); Albumin Level 3.5 g/dL (3.5-5.0); Alkaline Phosphatase 96 U/L (39-117); Anion Gap 11 (12-20); Aspartate Amino Transferase 36 U/L (5-37); Bilirubin Total 1.7 mg/dL (0.0-1.0); Blood Urea Nitrogen 7 mg/dL (9-16); Carbon Dioxide 25 mmol/L (22-29); Chloride 107 mmol/L (96-108); Estimated Glomerular Filt Rate > 60; Glucose Random 142 mg/dL (60-115); Potassium 3.7 mmol/L (3.3-5.1); Sodium 139 mmol/L (135-145); Total Protein 6.1 g/dL (6.5-8.0)
[2021-08-15] MEDS: Atropine Sulfate 1 MG/ML VIAL 0.5 MG SUBCUT (10:25)
[2021-08-15] MEDS: Famotidine/PF 20 MG/2 ML VIAL IVPUSH (10:25)
[2021-08-15] MEDS: dexAMETHasone sod phosphate/NS 12 MG/50 ML PIGGYBACK 200 MG IV (10:26)
[2021-08-15] MEDS: Acetaminophen 325 MG TABLET 650 MG PO (10:26)
[2021-08-15] MEDS: diphenhydrAMINE HCL 25 MG TABLET PO (10:26)
[2021-08-15] MEDS: Heparin Sodium,Porcine Flush 500 UNIT/5 ML SYRINGE IVFLUSH (10:26)
[2021-08-15] MEDS: SODIUM CHLORIDE 0.9% IV (11:33)
[2021-08-15] MEDS: BEVACIZUMAB IV (11:33)
[2021-08-15] MEDS: IRINOTECAN HCL IV (12:15)
[2021-08-15] MEDS: DEXTROSE 5% IV (12:15)
--- NOTE | 2021-08-15 13:30 | HE.PHANOTE ---
ELEVATED BILIRUBIN TODAY; MD WOULD LIKE TO TREAT AT FULL DOSE SINCE PATIENT'S LIVER LABS TEND TO FLUCTUATE
--- NOTE | 2021-08-15 15:24 | MHC.HEMONC ---
Pt here for C16D1 Avastin/Irinotecan. Port accessed with blood return. Labs drawn from port-specimen to lab. Urine specimen obtained-sent to lab. Pt states he continues to have fatigue when he takes his dog for a walk, some numbness in his feet. Lab results reviewed-okay to receive treatment today. Pre medicated with zofram, benadryl, pepcid, decadron, tylenol, atropine sulfate SC right arm. Avastin/ Irinotecan given as ordered-tolerated well. Port flushed with heparin and de accessed. Follow up appointment scheduled. Discharge packet given.
[2021-08-29 09:20] LABS: Basophils Percent Auto 0.5 % (0-2); Eosinophils Absolute Auto 0.2 X10*3/uL (0.0-0.4); Eosinophils Percent Auto 5.5 % (0-4); Hematocrit 36.8 % (42.0-52.0); Hemoglobin 11.6 g/dl (14.0-18.0); Imm Gran Abs Auto 0.02 X10*3/uL (0.00-0.03); Imm Gran Pct Auto 0.5 % (0.0-0.4); Lymphocytes Absolute Auto 1.3 X10*3/uL (1.2-4.9); Lymphocytes Percent Auto 30.4 % (20-40); MANUAL DIFF FLAG NO; Mean Corpuscular HGB Conc 31.5 g/dl (31.0-36.0); Mean Corpuscular Hemoglobin 30.9 pg (27.0-33.0); Mean Corpuscular Volume 97.9 fL (80.0-98.0); Mean Platelet Volume 12.6 fL (9.4-12.4); Monocytes Absolute Auto 0.5 X10*3/uL (0.1-1.2); Monocytes Percent Auto 12.3 % (2-11); Neutrophils Absolute Auto 2.2 x10*3/uL (2.0-8.3); Neutrophils Percent Auto 50.8 % (45-73); Platelet Count 166 X10*3/uL (160-400); Red Blood Count 3.76 X10*6/uL (4.60-5.80); Red Cell Distribution Width 17.2 % (11.0-16.0); White Blood Count 4.4 X10*3/uL (4.8-10.8)
[2021-08-29 09:21] LABS: Appearance Urine CLEAR; Color Urine YELLOW; Glucose Urine UA NEG (NEG); Leukocyte Esterase Urine NEG (NEG); Nitrite Urine NEG (NEG); Urine Blood NEG (NEG); Urine Ketones NEG (NEG); Urine Protein NEG (NEG-TRACE)
[2021-08-29 09:28] VITALS: BP 122/66; PULSE 82; RESP 18; TEMP 36.2; O2SAT 94; BMI 22.7
[2021-08-29 09:48] LABS: Alanine Aminotransferase 32 U/L (0-40); Albumin Level 3.6 g/dL (3.5-5.0); Alkaline Phosphatase 96 U/L (39-117); Anion Gap 13 (12-20); Aspartate Amino Transferase 38 U/L (5-37); Bilirubin Total 1.5 mg/dL (0.0-1.0); Blood Urea Nitrogen 12 mg/dL (9-16); Calcium 8.9 mg/dL (8.4-10.2); Carbon Dioxide 22 mmol/L (22-29); Chloride 106 mmol/L (96-108); Creatinine Clr Calc Pharmacy 102.7; Estimated Glomerular Filt Rate > 60; Glucose Random 100 mg/dL (60-115); Potassium 4.1 mmol/L (3.3-5.1); Sodium 137 mmol/L (135-145); Total Protein 6.4 g/dL (6.5-8.0)
[2021-08-29] MEDS: Atropine Sulfate 1 MG/ML VIAL 0.5 MG SUBCUT (10:07)
[2021-08-29] MEDS: Famotidine/PF 20 MG/2 ML VIAL IVPUSH (10:07)
[2021-08-29] MEDS: Heparin Sodium,Porcine Flush 500 UNIT/5 ML SYRINGE IVFLUSH (10:07)
[2021-08-29] MEDS: Acetaminophen 325 MG TABLET 650 MG PO (10:08)
[2021-08-29] MEDS: dexAMETHasone sod phosphate/NS 12 MG/50 ML PIGGYBACK 200 MG IV (10:08)
[2021-08-29] MEDS: diphenhydrAMINE HCL 25 MG TABLET PO (10:08)
[2021-08-29] MEDS: BEVACIZUMAB IV (10:51)
[2021-08-29] MEDS: SODIUM CHLORIDE 0.9% IV (10:51)
[2021-08-29] MEDS: DEXTROSE 5% IV (11:42)
[2021-08-29] MEDS: IRINOTECAN HCL IV (11:42)
--- NOTE | 2021-08-29 13:04 | PM.HEMONCPN ---
Medical Summary - Medical Summary Date of Service: 08/29/21 Chief complaint: scheduled follow-up and treatment Medical Summary: Metastatic colon cancer diagnosed in October 2018. Presented with abdominal pain, 30 pound weight loss and severe pain. He had abnormal colonoscopy in 2009. He was told he needed a repeat colonoscopy in 5 years but he did not go for testing. CT abdomen/pelvis with IV contrast shows multiple areas of wall thickening in the sigmoid colon as well as thickening and enhancement of cecum, terminal ileum. Long segment of wall thickening of the distal transverse colon and left colon. Enlarged mesenteric and retroperitoneal lymph nodes, multiple liver metastasis and lung metastasis, all of these worrisome for metastatic colorectal malignancy. 11/01/18-Core biopsy of the right liver mass, moderately differentiated adenocarcinoma consistent with colorectal primary. KRAS mutation not detected BRAF mutation not detected. NRAS negative, MSI proficient or MSI stable. He developed bowel obstruction, palliative bypass ileostomy has been performed in November 2018. He started on mFOLFOX/Avastin regimen from 11/27/2018. His last treatment cycle 13 was on 05/14/2019. 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 Repeat CT abdomen/pelvis on 09/18/2019 showed further decrease in size of liver metastasis. He was on maintenance Xeloda 1500 mg p.o. b.i.d. 2 weeks on/1 week off, along with bevacizumab Q 3 weeks starting 10/22/2019 until 12/13/2020. Rising CEA as well as imaging in November 2020 showed evidence of progressive disease. He started irinotecan with bevacizumab from December 2020. Interval History Interval history: Patient is here in follow-up and scheduled treatment. He is doing better, rectal discomfort has resolved completely. He was seen by Dr. Borja, CT scan was negative for cancer recurrence. His appetite is good, he has gained some weight. He reported fatigue last week but that has since resolved. He denies abdominal discomfort, chest pain, shortness of breath, fever or chills. Review of Systems - Constitutional Reports as per HPI, Reports no additional constitutional complaints - Cardiovascular Reports no additional cardiovascular complaints - Respiratory Reports no additional respiratory complaints [facility] Medical History: Medical History (Last Reviewed 07/27/21 @ 13:21 by Daniel Borja MD) Chronic respiratory failure ILD (interstitial lung disease) Pulmonary fibrosis Pulmonary nodule Tubular adenoma Family History: Family History (Last Reviewed 07/27/21 @ 13:21 by Daniel Borja MD) Son Cystic fibrosis Brother Esophageal cancer Maternal Aunt Lung cancer Surgical History: Surgical History (Last Reviewed 07/27/21 @ 13:21 by Daniel Borja MD) H/O knee surgery Social History: Social History (Last Reviewed 07/27/21 @ 13:21 by Daniel Borja MD) Living Situation History: Household Members: Spouse Household Members: Children Substance Use History: Use of substances other than those prescribed or required for medical reasons: No Advance Directives: Advance Directives: Yes Advance Directives Information Provided: No Advance Directives on File: Yes Advance Directives Date on File: 10/31/18 Nutrition Assessment: Recently lost weight without trying: No Occupation Assessmet: service: No Current occupational status: employed Current occupation: [employer] Oncology 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 Performance Status ECOG Performance Status: 1 Home Medications and Allergies Current Medications: Current Medications Acetaminophen (Acetaminophen 325 Mg Tablet) 650 mg PO ONCE PINEDA Stop: 08/29/21 23:59 Last Admin: 08/29/21 10:08 Dose: 650 mg Documented by: Atropine Sulfate (Atropine Sulfate 1 Mg/Ml Vial) 0.5 mg SUBCUT ONCE PINEDA Stop: 08/29/21 23:59 Last Admin: 08/29/21 10:07 Dose: 0.5 mg Documented by: Diphenhydramine HCl (Diphenhydramine Hcl 25 Mg Tablet) 25 mg PO ONCE PINEDA Stop: 08/29/21 23:59 Last Admin: 08/29/21 10:08 Dose: 25 mg Documented by: Famotidine (Famotidine/Pf 20 Mg/2 Ml Vial) 20 mg IVPUSH ONCE PINEDA Stop: 08/29/21 23:59 Last Admin: 08/29/21 10:07 Dose: 20 mg Documented by: Heparin Sodium (Porcine) (Heparin Sodium,Porcine Flush 500 Unit/5 Ml Syringe) 500 unit IVFLUSH ONCE PINEDA Stop: 08/29/21 23:59 Last Admin: 08/29/21 10:07 Dose: 500 unit Documented by: Dexamethasone Sodium Phosphate (Decadron) 12 mg in 50 mls @ 200 mls/hr IV ONCE PINEDA Stop: 08/29/21 23:59 Last Infusion: 08/29/21 10:23 Dose: Infused Documented by: Ondansetron HCl (Zofran) 16 mg in 50 mls @ 200 mls/hr IV ONCE PINEDA Stop: 08/29/21 23:59 Last Infusion: 08/29/21 10:22 Dose: Infused Documented by: Bevacizumab 360 mg/ Sodium (Chloride) 100 mls @ 200 mls/hr IV ONCE PINEDA Stop: 08/29/21 23:59 Last Infusion: 08/29/21 11:21 Dose: Infused Documented by: Irinotecan HCl 250 mg/ (Dextrose) 512.5 mls @ 341.667 mls/hr IV ONCE PINEDA Last Admin: 08/29/21 11:42 Dose: 341.67 mls/hr Documented by: Home Medications Medication Instructions Recorded Confirmed Type loperamide 2 mg capsule 2 mg PO QID PRN 05/19/20 08/29/21 History Allergies Allergy/AdvReac Type Severity Reaction Status Date / Time prednisone [PREDNISONE] AdvReac Intermediate Psychosis Verified 07/27/21 13:05 Exam Vital signs: Vital Signs Temp 97.1 F 08/29/21 09:28 Pulse 82 08/29/21 09:28 Resp 18 08/29/21 09:28 BP 122/66 08/29/21 09:28 Pulse Ox 94 08/29/21 09:28 Intake & Output 08/28/21 08/29/21 08/29/21 18:59 06:59 18:59 Intake Total 200 / 200 Balance 200 / 200 Intake: Intake, IV Amount 200 / 200 Bevacizumab 360 mg In 0.9 % 100 / 100 Sodium Chloride 85.6 ml @ 200 mls/hr IV ONCE PINEDA Rx#: [id number] Ondansetron HCL/NS 16 mg In 50 50 / 50 ml @ 200 mls/hr IV ONCE PINEDA Rx# :[id number] dexAMETHasone sod phosphate/NS 50 / 50 12 mg In 50 ml @ 200 mls/hr IV ONCE PINEDA Rx#:[id number] Other: Weight 74 kg Weight in Grams 00343 Weight 74 kg BMI result Body Mass Index 22.7 - Constitutional Present: no acute distress - Routine HEENT Exam Head: Present: normal inspection - Routine Neck Exam Present: full ROM. Absent: lymphadenopathy - Routine Respiratory Exam Present: CTAB - Routine Cardiovascular Exam Cardiovascular: Present: RRR, S1, S2 - Routine Abdominal Exam Present: normal bowel sounds, soft. Absent: mass, organomegaly - Routine Extremities Exam Present: full ROM. Absent: calf tenderness, pedal edema - Routine Skin Exam Present: intact. Absent: cyanosis, erythema - Routine Neurological Exam Present: alert, oriented X3 Data - Labs CBC & Chem 7: 08/29/21 08:51 08/29/21 09:05 Assessment and Plan Patient Active problem list reviewed?: Yes (1) Colon cancer metastasized to liver Status: Chronic Assessment and plan: 1. This is a 61-year-old gentleman, with metastatic colon carcinoma, with liver and lung metastases. Biopsy of the liver lesion, Moderately differentiated adenocarcinoma. KRAS and BRAF negative. NRAS negative, MSI proficient or MSI stable. HER2 and panTRK negative. Initial CEA elevated at 91. He developed bowel obstruction, palliative bypass ileostomy has been performed in November 2018. He started on mFOLFOX/Avastin regimen from 11/27/2018. His last treatment cycle 13 was on 05/14/2019. He was on maintenance Xeloda 1500 mg p.o. b.i.d. 2 weeks on/1 week off, along with bevacizumab Q 3 weeks starting 10/22/2019 until 12/13/2020. Rising CEA as well as imaging in November 2020 showed evidence of progressive disease. He started irinotecan with bevacizumab from December 2020. CEA level below 2. He is tolerating treatment well. 2. 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 He has been tapered off prednisone and CellCept. He is also off the oxygen. 3. Chronic arthralgias. He is on MSContin 30 mg b.i.d. he is on oxycodone 5 mg for breakthrough pain 2 to 3 times a day. 4. Intermittent elevation of bilirubin, indirect bilirubinemia, probable Gilbert's syndrome. He had a CT abdomen/pelvis in July 2021 which was negative for disease recurrence. Decrease in size of liver lesions. Follow-up in 3 weeks. - Time Spent With Patient Time Spent with Patient (in minutes): 15
--- NOTE | 2021-08-29 13:45 | MHC.HEMONC ---
Pt here for C17D1 AVASTIN/IRINOTECAN. Port accessed with blood return noted. Labs drawn from port-specimen to lab. Pt states he continues with fatigue and numbness/tingling in fingers and feet. Dr Mckee into see pt. Lab results reviewed-okay to receive treatment today. Pre medicated with tylenol, benadryl, pepcid, decadron, zofran, atropine sulfate SC. Avastin/Irinotecan given as ordered-tolerated well. Port flushed with heparin and de accessed. Follow up appointment scheduled. Discharge packet given
[2021-09-12 09:10] VITALS: BP 133/72; PULSE 89; RESP 18; TEMP 36.2; O2SAT 94; BMI 22.1
[2021-09-12 09:30] LABS: MANUAL DIFF FLAG NO
[2021-09-12 09:38] LABS: Appearance Urine HAZY; Color Urine YELLOW; Glucose Urine UA NEG (NEG); Leukocyte Esterase Urine NEG (NEG); Nitrite Urine NEG (NEG); Specific Gravity - Urine >= 1.030 (1.005-1.025); Urine Blood NEG (NEG); Urine Ketones 5 MG/DL (NEG); Urine Protein NEG (NEG-TRACE)
[2021-09-12 09:39] LABS: Basophils Percent Auto 0.4 % (0-2); Eosinophils Absolute Auto 0.1 X10*3/uL (0.0-0.4); Eosinophils Percent Auto 3.5 % (0-4); Hematocrit 36.5 % (42.0-52.0); Hemoglobin 11.6 g/dl (14.0-18.0); Imm Gran Abs Auto 0.01 X10*3/uL (0.00-0.03); Imm Gran Pct Auto 0.4 % (0.0-0.4); Lymphocytes Absolute Auto 0.8 X10*3/uL (1.2-4.9); Lymphocytes Percent Auto 32.4 % (20-40); Mean Corpuscular HGB Conc 31.8 g/dl (31.0-36.0); Mean Corpuscular Hemoglobin 31.3 pg (27.0-33.0); Mean Corpuscular Volume 98.4 fL (80.0-98.0); Mean Platelet Volume 12.3 fL (9.4-12.4); Monocytes Absolute Auto 0.4 X10*3/uL (0.1-1.2); Monocytes Percent Auto 14.7 % (2-11); Neutrophils Absolute Auto 1.3 x10*3/uL (2.0-8.3); Neutrophils Percent Auto 48.6 % (45-73); Platelet Count 142 X10*3/uL (160-400); Red Blood Count 3.71 X10*6/uL (4.60-5.80); White Blood Count 2.6 X10*3/uL (4.8-10.8)
[2021-09-12 09:52] LABS: Alanine Aminotransferase 34 U/L (0-40); Albumin Level 3.5 g/dL (3.5-5.0); Alkaline Phosphatase 106 U/L (39-117); Anion Gap 16 (12-20); Aspartate Amino Transferase 45 U/L (5-37); Bilirubin Total 1.5 mg/dL (0.0-1.0); Blood Urea Nitrogen 14 mg/dL (9-16); Calcium 8.9 mg/dL (8.4-10.2); Carbon Dioxide 21 mmol/L (22-29); Chloride 106 mmol/L (96-108); Creatinine Clr Calc Pharmacy 95.1; Estimated Glomerular Filt Rate > 60; Glucose Random 132 mg/dL (60-115); Potassium 3.8 mmol/L (3.3-5.1); Sodium 139 mmol/L (135-145); Total Protein 6.3 g/dL (6.5-8.0)
[2021-09-12] MEDS: oxyCODONE HCl Immed Release 5 MG TABLET PO (10:18)
[2021-09-12] MEDS: diphenhydrAMINE HCL 25 MG TABLET PO (10:28)
[2021-09-12] MEDS: Acetaminophen 325 MG TABLET 650 MG PO (10:28)
[2021-09-12] MEDS: Famotidine/PF 20 MG/2 ML VIAL IVPUSH (10:30)
[2021-09-12] MEDS: dexAMETHasone sod phosphate/NS 12 MG/50 ML PIGGYBACK 200 MG IV (10:59)
[2021-09-12] MEDS: Atropine Sulfate 1 MG/ML VIAL 0.5 MG SUBCUT (11:27)
[2021-09-12] MEDS: BEVACIZUMAB IV (11:36)
[2021-09-12] MEDS: SODIUM CHLORIDE 0.9% IV (11:36)
[2021-09-12] MEDS: DEXTROSE 5% IV (12:30)
[2021-09-12] MEDS: IRINOTECAN HCL IV (12:30)
[2021-09-12] MEDS: Heparin Sodium,Porcine Flush 500 UNIT/5 ML SYRINGE IVFLUSH (14:13)
--- NOTE | 2021-09-12 17:34 | MHC.HEMONC ---
Pt presented for C18D1 chemo tx, in good spirits, VSS, weight taken, nurse noted all VS and weights are consistent w/ past doc. Nurse accessed pt's R chest port w/ 20g 3/4 inch bianchi needle in sterile procedure, found positive blood return, CBC/CMP drawn/reviewed, UA collected and sent, clinical summary reviewed. Pt's urine showed no excess protein, ANC resulted 1,300, WBC 2.6, and bilirubin of 1,500. Nurse reviewed w/ pharmacist Jacinto, who stated that ANC of 1,300 is acceptable for this pt given current dose reduction of Irinotecan at 130 mg/m2. Jacitno added that Dr. Mckee has approved tx w/ similar elevated bilirubin. 2 nurses, provider, and pharmacist reviewed labs and Irinotecan dose of 250 mg and Avastin dose of 370 mg. Nurse performed toxicity assessment. Pt reported some loss of appetite recently, only feels nauseous once a month, and has baseline neuropathy of feet and toes. Pt says he often has loose stools from his ostomy, but he takes daily questran to bulk them up so it's difficult to tell if he's having diarrhea. Pt admits feeling a bit SOB this morning when walking into clinic, which he attributed to the cold. Pt said he was having 6/10 LLQ pain, forgot to take his MS contin this morning. Dr. Friend ordered one time dose of oxycodone 5 mg IR PO, which pt reported help bring his pain down to 2/10. Nurse reviewed purpose of pre-meds and potential side effects of Irinotecan and Avastin. Nurse admin premeds acetaminophen 650 mg PO and diphenhydramine 25 mg PO. Nurse admin pre-meds famotidine 20 mg IVP, ondansetron 16 mg IV infusion, and dexamethasone 12 mg IV infusion, then admin Atropine 0.5 mg SC to pt's RUE, which he tolerated well. After performing required 2-person checks, nurse admin Avastin 370 mg IV over 30 min, then Irinotecan 250 mg IV over 90 minutes. Nurse confirmed positive blood return in between chemo tx and after infusing last chemo, then flushed w/ 5 ml NS and 500 units heparin before deaccessing pt's port. Pt denied any sx at this time, nurse reviewed use of PRN zofran for nausea or PRN imodium for diarrhea. Pt stated that Dr. Mckee had discussed reducing freq of his cycles from 14 days to 21 days, but the provider is out this week. Nurse booked pt's next chemo, C19D1, for 3 weeks away, w/ Onc f/u appt to coincide on 10/04/21. Nurse to confirm w/ Dr. Mckee if she would like pt to return after 2 weeks of 3 weeks. Pt received d/c packet w/ appts booked.
--- NOTE | 2021-09-19 08:19 | MHC.HEMONC ---
Pt treatment now to change to q [address] Mckee. Pt was aware.
--- NOTE | 2021-09-19 17:19 | MHC.HEMONC ---
Nurse called pt at home, spoke w/ his , notified her that Dr. Mckee confirmed he would be having 21 day chemo cycle from now on, as opposed to previous 14 day cycle. Nurse confirmed that pt's next cycle is on 10/04/21.
--- NOTE | 2021-09-20 12:07 | MHC.HEMONC ---
pt , Selena called to say that Milind has urgent tooth extraction appt. He is having a lot of pain and unable to eat. I informed Dr Mckee as pt is on Avastin. OK for pt to proceed with extraction and must monitor for bleeding. is aware and she will inform Dentist. Refill requested for oxycodone and message in for Dr Mckee.
--- NOTE | 2021-09-21 12:34 | MHC.HEMONC ---
pt will be having tooth extraction done as soon as Dr Mckee sends clearance . They will be having it faxed here. Pt aware that oxycodone has been refilled at [facility].
--- NOTE | 2021-10-04 11:07 | MHC.HEMONC ---
Nurse spoke w/ pt's , Selena, confirmed he has dental procedure scheduled for 10/11/21. Nurse spoke w/ Dr. Mckee, who advised pt's chemo cycle scheduled for today should be delayed until a week after. Nurse rebooked C19D1 Avastin/Irinotecan for 10/17/21, spoke w/ pt over the phone and confirmed.
--- NOTE | 2021-10-13 10:10 | MHC.HEMONC ---
Chemotherapy appointment for 10/17/21 rescheduled for 10/24/21 for tooth extraction 10/17/21
--- NOTE | 2021-10-13 10:16 | MHC.HEMONC ---
Chemo therapy for 10/17/21 rescheduled to 10/24/21 secondary to tooth extraction on 10/17/21. called and notified.
[2021-10-24 08:47] VITALS: BP 103/62; PULSE 72; RESP 18; TEMP 36.3; O2SAT 95; BMI 22.1
[2021-10-24 09:07] LABS: MANUAL DIFF FLAG NO
[2021-10-24 09:08] LABS: Appearance Urine CLEAR; Color Urine YELLOW; Glucose Urine UA NEG (NEG); Leukocyte Esterase Urine NEG (NEG); Nitrite Urine NEG (NEG); PH 5.5 (5.0-8.0); Specific Gravity - Urine 1.025 (1.005-1.025); Urine Blood NEG (NEG); Urine Ketones NEG (NEG); Urine Protein NEG (NEG-TRACE)
[2021-10-24 09:10] LABS: Basophils Percent Auto 0.3 % (0-2); Eosinophils Absolute Auto 0.3 X10*3/uL (0.0-0.4); Eosinophils Percent Auto 5.6 % (0-4); Hematocrit 39.5 % (42.0-52.0); Hemoglobin 12.2 g/dl (14.0-18.0); Imm Gran Abs Auto 0.02 X10*3/uL (0.00-0.03); Imm Gran Pct Auto 0.3 % (0.0-0.4); Lymphocytes Absolute Auto 1.3 X10*3/uL (1.2-4.9); Lymphocytes Percent Auto 20.8 % (20-40); Mean Corpuscular HGB Conc 30.9 g/dl (31.0-36.0); Mean Corpuscular Hemoglobin 30.4 pg (27.0-33.0); Mean Corpuscular Volume 98.5 fL (80.0-98.0); Mean Platelet Volume 12.1 fL (9.4-12.4); Monocytes Absolute Auto 0.6 X10*3/uL (0.1-1.2); Monocytes Percent Auto 9.2 % (2-11); Neutrophils Absolute Auto 3.9 x10*3/uL (2.0-8.3); Neutrophils Percent Auto 63.8 % (45-73); Platelet Count 118 X10*3/uL (160-400); Red Blood Count 4.01 X10*6/uL (4.60-5.80); Red Cell Distribution Width 15.7 % (11.0-16.0); White Blood Count 6.1 X10*3/uL (4.8-10.8)
[2021-10-24 09:24] LABS: Alanine Aminotransferase 35 U/L (0-40); Albumin Level 3.4 g/dL (3.5-5.0); Alkaline Phosphatase 92 U/L (39-117); Anion Gap 12 (12-20); Aspartate Amino Transferase 46 U/L (5-37); Bilirubin Total 0.7 mg/dL (0.0-1.0); Blood Urea Nitrogen 13 mg/dL (9-16); Calcium 8.6 mg/dL (8.4-10.2); Carbon Dioxide 20 mmol/L (22-29); Chloride 109 mmol/L (96-108); Creatinine Clr Calc Pharmacy 100.1; Estimated Glomerular Filt Rate > 60; Glucose Random 112 mg/dL (60-115); Sodium 137 mmol/L (135-145); Total Protein 6.6 g/dL (6.5-8.0)
[2021-10-24] MEDS: diphenhydrAMINE HCL 25 MG TABLET PO (09:43)
[2021-10-24] MEDS: Acetaminophen 325 MG TABLET 650 MG PO (09:43)
[2021-10-24] MEDS: Atropine Sulfate 1 MG/ML VIAL 0.5 MG SUBCUT (09:46)
[2021-10-24] MEDS: Heparin Sodium,Porcine Flush 500 UNIT/5 ML SYRINGE IVFLUSH (09:46)
[2021-10-24] MEDS: Famotidine/PF 20 MG/2 ML VIAL IVPUSH (09:47)
--- NOTE | 2021-10-24 10:32 | PM.HEMONCPN ---
Medical Summary - Medical Summary Date of Service: 10/24/21 Chief complaint: Follow-up and scheduled treatment Medical Summary: Metastatic colon cancer diagnosed in October 2018. Presented with abdominal pain, 30 pound weight loss and severe pain. He had abnormal colonoscopy in 2009. He was told he needed a repeat colonoscopy in 5 years but he did not go for testing. CT abdomen/pelvis with IV contrast shows multiple areas of wall thickening in the sigmoid colon as well as thickening and enhancement of cecum, terminal ileum. Long segment of wall thickening of the distal transverse colon and left colon. Enlarged mesenteric and retroperitoneal lymph nodes, multiple liver metastasis and lung metastasis, all of these worrisome for metastatic colorectal malignancy. 11/01/18-Core biopsy of the right liver mass, moderately differentiated adenocarcinoma consistent with colorectal primary. KRAS mutation not detected BRAF mutation not detected. NRAS negative, MSI proficient or MSI stable. He developed bowel obstruction, palliative bypass ileostomy has been performed in November 2018. He started on mFOLFOX/Avastin regimen from 11/27/2018. His last treatment cycle 13 was on 05/14/2019. 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 Repeat CT abdomen/pelvis on 09/18/2019 showed further decrease in size of liver metastasis. He was on maintenance Xeloda 1500 mg p.o. b.i.d. 2 weeks on/1 week off, along with bevacizumab Q 3 weeks starting 10/22/2019 until 12/13/2020. Rising CEA as well as imaging in November 2020 showed evidence of progressive disease. He started irinotecan with bevacizumab from December 2020. Interval History Interval history: Patient is here in follow-up and scheduled treatment. He is doing well, his concern that he has not had chemotherapy over a month. He has more dental work but he has postponed it so he can schedule his treatment. He denies abdominal discomfort, chest pain, shortness of breath, fever or chills. Review of Systems - Constitutional Reports as per HPI, Reports no additional constitutional complaints - Cardiovascular Reports no additional cardiovascular complaints - Respiratory Reports no additional respiratory complaints [facility] Medical History: Medical History (Last Reviewed 09/12/21 @ 09:45 by Sukh Patel RN) Chronic respiratory failure ILD (interstitial lung disease) Pulmonary fibrosis Pulmonary nodule Tubular adenoma Family History: Family History (Last Reviewed 09/12/21 @ 09:45 by Sukh Patel RN) Son Cystic fibrosis Brother Esophageal cancer Maternal Aunt Lung cancer Surgical History: Surgical History (Last Reviewed 09/12/21 @ 09:45 by Sukh Patel RN) H/O knee surgery Social History: Social History (Last Reviewed 09/12/21 @ 09:45 by Sukh Patel RN) Living Situation History: Household Members: Spouse Household Members: Children Substance Use History: Use of substances other than those prescribed or required for medical reasons: No Advance Directives: Advance Directives: Yes Advance Directives Information Provided: No Advance Directives on File: Yes Advance Directives Date on File: 10/31/18 Nutrition Assessment: Recently lost weight without trying: No Occupation Assessmet: service: No Current occupational status: employed Current occupation: [employer] Oncology 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 Performance Status ECOG Performance Status: 0 Home Medications and Allergies Current Medications: Current Medications Acetaminophen (Acetaminophen 325 Mg Tablet) 650 mg PO ONCE PINEDA Stop: 10/24/21 23:59 Last Admin: 10/24/21 09:43 Dose: 650 mg Documented by: Atropine Sulfate (Atropine Sulfate 1 Mg/Ml Vial) 0.5 mg SUBCUT ONCE PINEDA Stop: 10/24/21 23:59 Last Admin: 10/24/21 09:46 Dose: 0.5 mg Documented by: Diphenhydramine HCl (Diphenhydramine Hcl 25 Mg Tablet) 25 mg PO ONCE PINEDA Stop: 10/24/21 23:59 Last Admin: 10/24/21 09:43 Dose: 25 mg Documented by: Famotidine (Famotidine/Pf 20 Mg/2 Ml Vial) 20 mg IVPUSH ONCE PINEDA Stop: 10/24/21 23:59 Last Admin: 10/24/21 09:47 Dose: 20 mg Documented by: Heparin Sodium (Porcine) (Heparin Sodium,Porcine Flush 500 Unit/5 Ml Syringe) 500 unit IVFLUSH ONCE PINEDA Stop: 10/24/21 23:59 Last Admin: 10/24/21 09:46 Dose: 500 unit Documented by: Irinotecan HCl 250 mg/ (Dextrose) 512.5 mls @ 341.667 mls/hr IV ONCE [facility] Last Infusion: 08/29/21 13:15 Dose: Infused Documented by: Dexamethasone Sodium Phosphate (Decadron) 12 mg in 50 mls @ 200 mls/hr IV ONCE PINEDA Stop: 10/24/21 23:59 Ondansetron HCl (Zofran) 16 mg in 50 mls @ 200 mls/hr IV ONCE PINEDA Stop: 10/24/21 23:59 Last Admin: 10/24/21 09:44 Dose: 200 mls/hr Documented by: Bevacizumab 360 mg/ Sodium (Chloride) 100 mls @ 200 mls/hr IV ONCE PINEDA Stop: 10/24/21 23:59 Irinotecan HCl 200 mg/ (Irinotecan HCl 50 mg/ Dextrose) 512.5 mls @ 341.667 mls/hr IV ONCE PINEDA Stop: 10/24/21 23:59 Home Medications Medication Instructions Recorded Confirmed Type loperamide 2 mg capsule 2 mg PO QID PRN 05/19/20 10/24/21 History Allergies Allergy/AdvReac Type Severity Reaction Status Date / Time prednisone [PREDNISONE] AdvReac Intermediate Psychosis Verified 09/12/21 09:45 Exam Vital signs: Vital Signs Temp 97.3 F 10/24/21 08:47 Pulse 72 10/24/21 08:47 Resp 18 10/24/21 08:47 BP 103/62 10/24/21 08:47 Pulse Ox 95 10/24/21 08:47 Intake & Output 10/23/21 10/24/21 10/24/21 18:59 06:59 18:59 Other: Weight 72.1 kg [place] Weight in Grams 65747 Weight 72.1 kg BMI result Body Mass Index 22.1 - Constitutional Present: no acute distress - Routine HEENT Exam Head: Present: normal inspection - Routine Neck Exam Present: full ROM. Absent: lymphadenopathy - Routine Respiratory Exam Present: CTAB - Routine Cardiovascular Exam Cardiovascular: Present: RRR, S1, S2 - Routine Abdominal Exam Present: normal bowel sounds, soft. Absent: mass, organomegaly - Routine Extremities Exam Present: full ROM. Absent: calf tenderness, pedal edema - Routine Skin Exam Present: intact. Absent: cyanosis, erythema - Routine Neurological Exam Present: alert, oriented X3 Data - Labs CBC & Chem 7: 10/24/21 08:45 10/24/21 08:45 Assessment and Plan Patient Active problem list reviewed?: Yes (1) Colon cancer metastasized to liver Status: Chronic Assessment and plan: 1. This is a 61-year-old gentleman, with metastatic colon carcinoma, with liver and lung metastases. Biopsy of the liver lesion, Moderately differentiated adenocarcinoma. KRAS and BRAF negative. NRAS negative, MSI proficient or MSI stable. HER2 and panTRK negative. Initial CEA elevated at 91. He developed bowel obstruction, palliative bypass ileostomy has been performed in November 2018. He started on mFOLFOX/Avastin regimen from 11/27/2018. His last treatment cycle 13 was on 05/14/2019. He was on maintenance Xeloda 1500 mg p.o. b.i.d. 2 weeks on/1 week off, along with bevacizumab Q 3 weeks starting 10/22/2019 until 12/13/2020. Rising CEA as well as imaging in November 2020 showed evidence of progressive disease. He started irinotecan with bevacizumab from December 2020. CEA level below 2. He is tolerating treatment well. 2. 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 He has been tapered off prednisone and CellCept. He is also off the oxygen. 3. Chronic arthralgias. He is on MSContin 30 mg b.i.d. he is on oxycodone 5 mg for breakthrough pain 2 to 3 times a day. 4. Intermittent elevation of bilirubin, indirect bilirubinemia, probable Gilbert's syndrome. He had a CT abdomen/pelvis in July 2021 which was negative for disease recurrence. Decrease in size of liver lesions. Labs look good today, proceed with treatment. Follow-up in 3 weeks. - Time Spent With Patient Time Spent with Patient (in minutes): 15
[2021-10-24] MEDS: SODIUM CHLORIDE 0.9% IV (11:47)
[2021-10-24] MEDS: BEVACIZUMAB IV (11:47)
[2021-10-24] MEDS: IRINOTECAN HCL IV (12:25)
[2021-10-24] MEDS: DEXTROSE 5% IV (12:25)
--- NOTE | 2021-10-24 16:08 | MHC.HEMONCSW ---
MET WITH PT WHO IS KNOWN TO ME FROM PREVIOUS ENCOUNTERS. ALERT, REMAINS INDEPENDENT AND STATES HE IS COPING FAIRLY WELL. FAMILY AND FRIENDS SUPPORTIVE. WEIGHT LOSS NOTED AND HE DRINKS 1-2 BOOST PROTEIN DRINKS DAILY. EXERCISES DAILY WITH HIS DOG. BEGAN MEDICAL MARIJUANA FOR APPETITE AND IT IS WORKING. DISCUSSED VARIETY OTHER TOPICS. HEALTH CARE PROXY PREVIOUSLY DONE. EDUCATION AND SUPPORT PROVIDED.
--- NOTE | 2021-10-24 17:12 | MHC.HEMONC ---
Pt here for C19D1 AVASTIN/IRINOTECAN. Port accessed with blood return. Labs drawn from port-specimens to lab. Pt states he continues with fatigue, neuropathy and loose stools which he controls with lomotil. Lab results reviewed-okay to receive treatment today. Dr Mckee into see pt. Pre medicated with zofran, atropine sulfate 0.5mg SC right arm-tolerated well, decadron, tylenol, pepcid, benadryl. AVASTIN/IRINOTECAN given as ordered-tolerated well. Port flushed with heparin and de accessed. Follow up appointment scheduled in 3 weeks, discharge packet given
--- NOTE | 2021-10-26 17:17 | MHC.HEMONC ---
Nurse listened to VM on refill line, pt requested refill for his MS Contin 30 mg tablets from [facility] in [place]. Dr. Mckee was informed and this nurse confirmed that digital scrip was sent. Nurse called pt, spoke w/ Selena, who said she'd received notification of the scrip from their pharmacy.
--- NOTE | 2021-11-07 11:00 | MHC.HEMONC ---
Call from Milind khanna requesting a refill on his Oxycodone 5mg to be sent to [facility] in [place]. Request given to Dr Mckee.
--- NOTE | 2021-11-09 17:40 | MHC.HEMONC ---
Nurse heard VM on prescription refill line, pt's Selena was calling requesting refill on Cholestyramine packets. Nurse passed request to Dr. Mckee, confirmed she sent digital scrip to [facility] on [address] Nurse called pt's , Selena, and let her know the scrip had been filled. Pt's was grateful.
[2021-11-14 09:05] VITALS: BP 109/80; PULSE 76; RESP 18; TEMP 36.4; O2SAT 95; BMI 22.0
[2021-11-14 09:47] LABS: MANUAL DIFF FLAG NO
[2021-11-14 09:51] LABS: Appearance Urine CLEAR; Basophils Percent Auto 0.2 % (0-2); Color Urine YELLOW; Eosinophils Absolute Auto 0.2 X10*3/uL (0.0-0.4); Eosinophils Percent Auto 3.6 % (0-4); Glucose Urine UA NEG (NEG); Hematocrit 37.2 % (42.0-52.0); Hemoglobin 11.8 g/dl (14.0-18.0); Imm Gran Abs Auto 0.01 X10*3/uL (0.00-0.03); Imm Gran Pct Auto 0.2 % (0.0-0.4); Leukocyte Esterase Urine NEG (NEG); Lymphocytes Absolute Auto 0.8 X10*3/uL (1.2-4.9); Mean Corpuscular HGB Conc 31.7 g/dl (31.0-36.0); Mean Corpuscular Hemoglobin 31.4 pg (27.0-33.0); Mean Corpuscular Volume 98.9 fL (80.0-98.0); Mean Platelet Volume 11.9 fL (9.4-12.4); Monocytes Absolute Auto 0.4 X10*3/uL (0.1-1.2); Nitrite Urine NEG (NEG); Platelet Count 120 X10*3/uL (160-400); Red Blood Count 3.76 X10*6/uL (4.60-5.80); Red Cell Distribution Width 16.9 % (11.0-16.0); Specific Gravity - Urine <= 1.005 (1.005-1.025); Urine Blood NEG (NEG); Urine Ketones NEG (NEG); Urine Protein NEG (NEG-TRACE); White Blood Count 4.4 X10*3/uL (4.8-10.8)
[2021-11-14 10:12] LABS: Alanine Aminotransferase 41 U/L (0-40); Albumin Level 3.5 g/dL (3.5-5.0); Alkaline Phosphatase 94 U/L (39-117); Anion Gap 10 (12-20); Aspartate Amino Transferase 47 U/L (5-37); Bilirubin Total 2.1 mg/dL (0.0-1.0); Blood Urea Nitrogen 8 mg/dL (9-16); Calcium 8.8 mg/dL (8.4-10.2); Carbon Dioxide 24 mmol/L (22-29); Chloride 105 mmol/L (96-108); Creatinine Clr Calc Pharmacy 99.5; Estimated Glomerular Filt Rate > 60; Glucose Random 132 mg/dL (60-115); Potassium 3.8 mmol/L (3.3-5.1); Sodium 135 mmol/L (135-145); Total Protein 6.3 g/dL (6.5-8.0)
--- NOTE | 2021-11-14 10:32 | HE.PHANOTE ---
RPH SPOKE TO MD AND SHE WOULD LIKE TO TREAT PATIENT TODAY DESPITE HIGH BILIRUBIN (2.1)
[2021-11-14] MEDS: Acetaminophen 325 MG TABLET 650 MG PO (10:41)
[2021-11-14] MEDS: diphenhydrAMINE HCL 25 MG TABLET PO (10:41)
[2021-11-14] MEDS: Famotidine/PF 20 MG/2 ML VIAL IVPUSH (10:42)
[2021-11-14] MEDS: dexAMETHasone sod phosphate/NS 12 MG/50 ML PIGGYBACK 200 MG IV (11:08)
[2021-11-14] MEDS: Atropine Sulfate 1 MG/ML VIAL 0.5 MG SUBCUT (11:30)
[2021-11-14] MEDS: SODIUM CHLORIDE 0.9% IV (11:37)
[2021-11-14] MEDS: BEVACIZUMAB IV (11:37)
[2021-11-14] MEDS: IRINOTECAN HCL IV (12:17)
[2021-11-14] MEDS: DEXTROSE 5% IV (12:17)
--- NOTE | 2021-11-14 14:00 | PM.HEMONCPN ---
Medical Summary - Medical Summary Date of Service: 11/14/21 Chief complaint: Follow-up Medical Summary: Metastatic colon cancer diagnosed in October 2018. Presented with abdominal pain, 30 pound weight loss and severe pain. He had abnormal colonoscopy in 2009. He was told he needed a repeat colonoscopy in 5 years but he did not go for testing. CT abdomen/pelvis with IV contrast shows multiple areas of wall thickening in the sigmoid colon as well as thickening and enhancement of cecum, terminal ileum. Long segment of wall thickening of the distal transverse colon and left colon. Enlarged mesenteric and retroperitoneal lymph nodes, multiple liver metastasis and lung metastasis, all of these worrisome for metastatic colorectal malignancy. 11/01/18-Core biopsy of the right liver mass, moderately differentiated adenocarcinoma consistent with colorectal primary. KRAS mutation not detected BRAF mutation not detected. NRAS negative, MSI proficient or MSI stable. He developed bowel obstruction, palliative bypass ileostomy has been performed in November 2018. He started on mFOLFOX/Avastin regimen from 11/27/2018. His last treatment cycle 13 was on 05/14/2019. 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 Repeat CT abdomen/pelvis on 09/18/2019 showed further decrease in size of liver metastasis. He was on maintenance Xeloda 1500 mg p.o. b.i.d. 2 weeks on/1 week off, along with bevacizumab Q 3 weeks starting 10/22/2019 until 12/13/2020. Rising CEA as well as imaging in November 2020 showed evidence of progressive disease. He started irinotecan with bevacizumab from December 2020. Interval History Interval history: Patient is here in follow-up and scheduled treatment. He experienced slightly more nausea than usual after last treatment. He is feeling much better today and has no complaints. He denies abdominal discomfort, chest pain, shortness of breath, fever or chills. Review of Systems - Constitutional Reports as per HPI, Reports no additional constitutional complaints - Cardiovascular Reports no additional cardiovascular complaints - Respiratory Reports no additional respiratory complaints [facility] Medical History: Medical History (Last Reviewed 09/12/21 @ 09:45 by Sukh Patel RN) Chronic respiratory failure ILD (interstitial lung disease) Pulmonary fibrosis Pulmonary nodule Tubular adenoma Family History: Family History (Last Reviewed 09/12/21 @ 09:45 by Sukh Patel RN) Son Cystic fibrosis Brother Esophageal cancer Maternal Aunt Lung cancer Surgical History: Surgical History (Last Reviewed 09/12/21 @ 09:45 by Sukh Patel RN) H/O knee surgery Social History: Social History (Last Reviewed 09/12/21 @ 09:45 by Sukh Patel RN) Living Situation History: Household Members: Spouse Household Members: Children Substance Use History: Use of substances other than those prescribed or required for medical reasons: No Advance Directives: Advance Directives: Yes Advance Directives Information Provided: No Advance Directives on File: Yes Advance Directives Date on File: 10/31/18 Nutrition Assessment: Recently lost weight without trying: No Occupation Assessmet: service: No Current occupational status: employed Current occupation: [email or web address] Oncology 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 Performance Status ECOG Performance Status: 1 Home Medications and Allergies Current Medications: Current Medications Acetaminophen (Acetaminophen 325 Mg Tablet) 650 mg PO ONCE PINEDA Stop: 11/14/21 23:59 Last Admin: 11/14/21 10:41 Dose: 650 mg Documented by: Atropine Sulfate (Atropine Sulfate 1 Mg/Ml Vial) 0.5 mg SUBCUT ONCE PINEDA Stop: 11/14/21 23:59 Last Admin: 11/14/21 11:30 Dose: 0.5 mg Documented by: Diphenhydramine HCl (Diphenhydramine Hcl 25 Mg Tablet) 25 mg PO ONCE PINEDA Stop: 11/14/21 23:59 Last Admin: 11/14/21 10:41 Dose: 25 mg Documented by: Famotidine (Famotidine/Pf 20 Mg/2 Ml Vial) 20 mg IVPUSH ONCE PINEDA Stop: 11/14/21 23:59 Last Admin: 11/14/21 10:42 Dose: 20 mg Documented by: Heparin Sodium (Porcine) (Heparin Sodium,Porcine Flush 500 Unit/5 Ml Syringe) 500 unit IVFLUSH ONCE PINEDA Stop: 11/14/21 23:59 Dexamethasone Sodium Phosphate (Decadron) 12 mg in 50 mls @ 200 mls/hr IV ONCE PINEDA Stop: 11/14/21 23:59 Last Infusion: 11/14/21 11:28 Dose: Infused Documented by: Ondansetron HCl (Zofran) 16 mg in 50 mls @ 200 mls/hr IV ONCE PINEDA Stop: 11/14/21 23:59 Last Infusion: 11/14/21 11:09 Dose: Infused Documented by: Bevacizumab 360 mg/ Sodium (Chloride) 100 mls @ 200 mls/hr IV ONCE PINEDA Stop: 11/14/21 23:59 Last Infusion: 11/14/21 12:05 Dose: Infused Documented by: Irinotecan HCl 200 mg/ (Irinotecan HCl 50 mg/ Dextrose) 512.5 mls @ 341.667 mls/hr IV ONCE PINEDA Stop: 11/14/21 23:59 Last Admin: 11/14/21 12:17 Dose: 341.67 mls/hr Documented by: Home Medications Medication Instructions Recorded Confirmed Type loperamide 2 mg capsule 2 mg PO QID PRN 05/19/20 10/24/21 History Allergies Allergy/AdvReac Type Severity Reaction Status Date / Time prednisone [PREDNISONE] AdvReac Intermediate Psychosis Verified 09/12/21 09:45 Exam Vital signs: Vital Signs Temp 97.5 F 11/14/21 09:05 Pulse 76 11/14/21 09:05 Resp 18 11/14/21 09:05 BP 109/80 11/14/21 09:05 Pulse Ox 95 11/14/21 09:05 Intake & Output 11/13/21 11/14/21 11/14/21 18:59 06:59 18:59 Intake Total 200 / 200 Balance 200 / 200 Intake: Intake, IV Amount 200 / 200 Bevacizumab 360 mg In 0.9 % 100 / 100 Sodium Chloride 85.6 ml @ 200 mls/hr IV ONCE PINEDA Rx#: [id number] Ondansetron HCL/NS 16 mg In 50 50 / 50 ml @ 200 mls/hr IV ONCE PINEDA Rx# :[id number] dexAMETHasone sod phosphate/NS 50 / 50 12 mg In 50 ml @ 200 mls/hr IV ONCE PINEDA Rx#:[id number] Other: Weight 71.7 kg Weight in Grams 27656 Weight 71.7 kg BMI result Body Mass Index 22.0 - Constitutional Present: no acute distress - Routine HEENT Exam Head: Present: normal inspection - Routine Neck Exam Present: full ROM. Absent: lymphadenopathy - Routine Respiratory Exam Present: CTAB - Routine Cardiovascular Exam Cardiovascular: Present: RRR, S1, S2 - Routine Abdominal Exam Present: normal bowel sounds, soft. Absent: mass, organomegaly - Routine Extremities Exam Present: full ROM. Absent: calf tenderness, pedal edema - Routine Skin Exam Present: intact. Absent: cyanosis, erythema - Routine Neurological Exam Present: alert, oriented X3 Data - Labs CBC & Chem 7: 11/14/21 09:30 11/14/21 09:30 Assessment and Plan Patient Active problem list reviewed?: Yes (1) Colon cancer metastasized to liver Status: Chronic Assessment and plan: 1. This is a 61-year-old gentleman, with metastatic colon carcinoma, with liver and lung metastases. Biopsy of the liver lesion, Moderately differentiated adenocarcinoma. KRAS and BRAF negative. NRAS negative, MSI proficient or MSI stable. HER2 and panTRK negative. Initial CEA elevated at 91. He developed bowel obstruction, palliative bypass ileostomy has been performed in November 2018. He started on mFOLFOX/Avastin regimen from 11/27/2018. His last treatment cycle 13 was on 05/14/2019. He was on maintenance Xeloda 1500 mg p.o. b.i.d. 2 weeks on/1 week off, along with bevacizumab Q 3 weeks starting 10/22/2019 until 12/13/2020. Rising CEA as well as imaging in November 2020 showed evidence of progressive disease. He started irinotecan with bevacizumab from December 2020. CEA level below 2. He is tolerating treatment well. 2. 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 He has been tapered off prednisone and CellCept. He is also off the oxygen. 3. Chronic arthralgias. He is on MSContin 30 mg b.i.d. he is on oxycodone 5 mg for breakthrough pain 2 to 3 times a day. 4. Intermittent elevation of bilirubin, indirect bilirubinemia, probable Gilbert's syndrome. He had a CT abdomen/pelvis in July 2021 which was negative for disease recurrence. Decrease in size of liver lesions. Labs look good today, proceed with treatment. Follow-up in 3 weeks. - Time Spent With Patient Time Spent with Patient (in minutes): 10
[2021-11-14] MEDS: Heparin Sodium,Porcine Flush 500 UNIT/5 ML SYRINGE IVFLUSH (14:01)
--- NOTE | 2021-11-14 14:40 | MHC.HEMONC ---
Pt was here for C20D1 Avastin/Irinotecan, weights/VSS, pt reports feeling well overall, fatigued, neuropathy of bilat fingers, but no pain. Nurse accessed pt's R chest port w/ 20 g, 3/4 bianchi needle in sterile procedure, positive blood return, labs drawn/reviewed, UA sent to lab, negative for protein. Dr. Mckee cleared pt for tx in spite of elevated Bilirubin of 2.1, consulted w/ pharmacy. Pt's dose of irinotecan continues reduced from 180 to 130 mg/m2, also continues on Q21D schedule. Dr. Mckee was in to meet w/ pt for Onc f/u. Nurse admin pre-meds, Tylenol, benadryl PO, Zofran, Dex, Pepcid IV. Avastin was admin over 30 min, SC atropine was admin 30 min prior to start of Irinotecan. Nurse admin Irinotecan over 90 min, pt tolerated very well. Pt was de-accessed after flushing w/ NS and heparin 500 units, maintained positive blood return. Pt was given d/c packet w/ his next cycle, C21D1 booked on 12/05/21. pt left in good spirits.
[2021-12-05 09:16] VITALS: BP 132/75; PULSE 89; RESP 18; TEMP 36.5; O2SAT 94; BMI 22.6
[2021-12-05 09:19] LABS: MANUAL DIFF FLAG NO
[2021-12-05 09:22] LABS: Appearance Urine CLEAR; Color Urine YELLOW; Glucose Urine UA NEG (NEG); Leukocyte Esterase Urine NEG (NEG); Nitrite Urine NEG (NEG); PH 5.5 (5.0-8.0); Specific Gravity - Urine 1.015 (1.005-1.025); Urine Blood NEG (NEG); Urine Ketones NEG (NEG); Urine Protein NEG (NEG-TRACE)
[2021-12-05 09:23] LABS: Basophils Percent Auto 0.5 % (0-2); Eosinophils Absolute Auto 0.1 X10*3/uL (0.0-0.4); Eosinophils Percent Auto 3.6 % (0-4); Hemoglobin 12.2 g/dl (14.0-18.0); Imm Gran Abs Auto 0.03 X10*3/uL (0.00-0.03); Imm Gran Pct Auto 0.8 % (0.0-0.4); Lymphocytes Absolute Auto 1.4 X10*3/uL (1.2-4.9); Lymphocytes Percent Auto 36.7 % (20-40); Mean Corpuscular HGB Conc 32.1 g/dl (31.0-36.0); Mean Corpuscular Hemoglobin 31.5 pg (27.0-33.0); Mean Corpuscular Volume 98.2 fL (80.0-98.0); Mean Platelet Volume 11.4 fL (9.4-12.4); Monocytes Absolute Auto 0.6 X10*3/uL (0.1-1.2); Monocytes Percent Auto 15.4 % (2-11); Neutrophils Absolute Auto 1.7 x10*3/uL (2.0-8.3); Platelet Count 139 X10*3/uL (160-400); Red Blood Count 3.87 X10*6/uL (4.60-5.80); Red Cell Distribution Width 17.2 % (11.0-16.0); White Blood Count 3.8 X10*3/uL (4.8-10.8)
[2021-12-05 09:37] LABS: Alanine Aminotransferase 26 U/L (0-40); Albumin Level 3.6 g/dL (3.5-5.0); Alkaline Phosphatase 83 U/L (39-117); Anion Gap 10 (12-20); Aspartate Amino Transferase 34 U/L (5-37); Bilirubin Total 1.3 mg/dL (0.0-1.0); Blood Urea Nitrogen 11 mg/dL (9-16); Calcium 8.9 mg/dL (8.4-10.2); Carbon Dioxide 26 mmol/L (22-29); Chloride 107 mmol/L (96-108); Creatinine Clr Calc Pharmacy 93.5; Estimated Glomerular Filt Rate > 60; Glucose Random 114 mg/dL (60-115); Potassium 4.5 mmol/L (3.3-5.1); Sodium 138 mmol/L (135-145); Total Protein 6.6 g/dL (6.5-8.0)
[2021-12-05] MEDS: Acetaminophen 325 MG TABLET 650 MG PO (09:56)
[2021-12-05] MEDS: diphenhydrAMINE HCL 25 MG TABLET PO (09:57)
[2021-12-05] MEDS: Famotidine/PF 20 MG/2 ML VIAL IVPUSH (09:57)
[2021-12-05] MEDS: dexAMETHasone sod phosphate/NS 12 MG/50 ML PIGGYBACK 200 MG IV (10:03)
[2021-12-05] MEDS: Atropine Sulfate 1 MG/ML VIAL 0.5 MG SUBCUT (10:29)
[2021-12-05] MEDS: SODIUM CHLORIDE 0.9% IV (11:34)
[2021-12-05] MEDS: BEVACIZUMAB IV (11:34)
[2021-12-05] MEDS: DEXTROSE 5% IV (12:26)
[2021-12-05] MEDS: IRINOTECAN HCL IV (12:26)
[2021-12-05] MEDS: Heparin Sodium,Porcine Flush 500 UNIT/5 ML SYRINGE IVFLUSH (12:57)
--- NOTE | 2021-12-05 15:25 | MHC.HEMONC ---
C21 DAY 1: IRINOTECAN/AVASTIN. Port accessed without difficulty- positive blood return. Labs reviewed. Treatment well tolerated. VSS. No complaints at this time. Oxycodone refill by Dr. Friend.
[2021-12-26 09:04] VITALS: BP 109/64; PULSE 68; RESP 17; TEMP 36.4; O2SAT 94; BMI 22.0
[2021-12-26 09:32] LABS: MANUAL DIFF FLAG NO
[2021-12-26 09:34] LABS: Basophils Percent Auto 0.5 % (0-2); Eosinophils Absolute Auto 0.2 X10*3/uL (0.0-0.4); Eosinophils Percent Auto 5.7 % (0-4); Hematocrit 37.6 % (42.0-52.0); Hemoglobin 12.2 g/dl (14.0-18.0); Imm Gran Abs Auto 0.01 X10*3/uL (0.00-0.03); Imm Gran Pct Auto 0.3 % (0.0-0.4); Lymphocytes Percent Auto 25.7 % (20-40); Mean Corpuscular HGB Conc 32.4 g/dl (31.0-36.0); Mean Corpuscular Hemoglobin 31.2 pg (27.0-33.0); Mean Corpuscular Volume 96.2 fL (80.0-98.0); Mean Platelet Volume 12.1 fL (9.4-12.4); Monocytes Absolute Auto 0.5 X10*3/uL (0.1-1.2); Monocytes Percent Auto 13.2 % (2-11); Neutrophils Percent Auto 54.6 % (45-73); Platelet Count 142 X10*3/uL (160-400); Red Blood Count 3.91 X10*6/uL (4.60-5.80); Red Cell Distribution Width 16.7 % (11.0-16.0); White Blood Count 3.7 X10*3/uL (4.8-10.8)
[2021-12-26 09:47] LABS: Alanine Aminotransferase 22 U/L (0-40); Albumin Level 3.6 g/dL (3.5-5.0); Alkaline Phosphatase 87 U/L (39-117); Anion Gap 10 (12-20); Aspartate Amino Transferase 34 U/L (5-37); Bilirubin Total 1.6 mg/dL (0.0-1.0); Blood Urea Nitrogen 9 mg/dL (9-16); Calcium 8.9 mg/dL (8.4-10.2); Carbon Dioxide 24 mmol/L (22-29); Chloride 106 mmol/L (96-108); Creatinine Clr Calc Pharmacy 92.2; Estimated Glomerular Filt Rate > 60; Glucose Random 138 mg/dL (60-115); Sodium 136 mmol/L (135-145); Total Protein 6.5 g/dL (6.5-8.0)
[2021-12-26 09:58] LABS: Appearance Urine CLEAR; Color Urine YELLOW; Glucose Urine UA NEG (NEG); Leukocyte Esterase Urine NEG (NEG); Nitrite Urine NEG (NEG); Urine Blood NEG (NEG); Urine Ketones NEG (NEG); Urine Protein NEG (NEG-TRACE)
[2021-12-26] MEDS: diphenhydrAMINE HCL 25 MG TABLET PO (10:10)
[2021-12-26] MEDS: Heparin Sodium,Porcine Flush 500 UNIT/5 ML SYRINGE IVFLUSH (10:10)
[2021-12-26] MEDS: Acetaminophen 325 MG TABLET 650 MG PO (10:10)
[2021-12-26] MEDS: Famotidine/PF 20 MG/2 ML VIAL IVPUSH (10:10)
[2021-12-26] MEDS: dexAMETHasone sod phosphate/NS 12 MG/50 ML PIGGYBACK 200 MG IV (10:11)
[2021-12-26] MEDS: Atropine Sulfate 1 MG/ML VIAL 0.5 MG SUBCUT (11:05)
[2021-12-26] MEDS: BEVACIZUMAB IV (11:08)
[2021-12-26] MEDS: SODIUM CHLORIDE 0.9% IV (11:08)
[2021-12-26] MEDS: IRINOTECAN HCL IV (11:47)
[2021-12-26] MEDS: DEXTROSE 5% IV (11:47)
--- NOTE | 2021-12-26 16:15 | MHC.HEMONC ---
C23- AVASTIN/IRINOTECAN. VSS. Port accessed without difficulty. Labs obtained and reviewed. UA negative. Pre-medicated as ordered. Infusion well tolerated. Patient to return in 3 weeks for C24 and exam with Dr. Mckee on 01/16/22. No complaints at this time. Discharge packet given.
[2022-01-16 08:51] VITALS: BP 118/65; PULSE 72; RESP 16; TEMP 36.6; O2SAT 95; BMI 21.9
[2022-01-16 09:16] LABS: MANUAL DIFF FLAG NO
[2022-01-16 09:17] LABS: Basophils Percent Auto 0.6 % (0-2); Eosinophils Absolute Auto 0.3 X10*3/uL (0.0-0.4); Eosinophils Percent Auto 9.1 % (0-4); Hematocrit 37.5 % (42.0-52.0); Imm Gran Abs Auto 0.01 X10*3/uL (0.00-0.03); Imm Gran Pct Auto 0.3 % (0.0-0.4); Lymphocytes Absolute Auto 1.1 X10*3/uL (1.2-4.9); Lymphocytes Percent Auto 29.6 % (20-40); Mean Corpuscular Hemoglobin 31.3 pg (27.0-33.0); Mean Corpuscular Volume 97.7 fL (80.0-98.0); Mean Platelet Volume 12.2 fL (9.4-12.4); Monocytes Absolute Auto 0.5 X10*3/uL (0.1-1.2); Monocytes Percent Auto 13.6 % (2-11); Neutrophils Absolute Auto 1.7 x10*3/uL (2.0-8.3); Neutrophils Percent Auto 46.8 % (45-73); Platelet Count 126 X10*3/uL (160-400); Red Blood Count 3.84 X10*6/uL (4.60-5.80); White Blood Count 3.6 X10*3/uL (4.8-10.8)
[2022-01-16 09:18] LABS: Appearance Urine CLEAR; Color Urine YELLOW; Glucose Urine UA NEG (NEG); Leukocyte Esterase Urine NEG (NEG); Nitrite Urine NEG (NEG); PH 5.5 (5.0-8.0); Urine Blood NEG (NEG); Urine Ketones NEG (NEG); Urine Protein NEG (NEG-TRACE)
[2022-01-16 09:35] LABS: Alanine Aminotransferase 26 U/L (0-40); Albumin Level 3.7 g/dL (3.5-5.0); Alkaline Phosphatase 96 U/L (39-117); Anion Gap 11 (12-20); Aspartate Amino Transferase 38 U/L (5-37); Bilirubin Total 1.1 mg/dL (0.0-1.0); Blood Urea Nitrogen 12 mg/dL (9-16); Calcium 8.7 mg/dL (8.4-10.2); Carbon Dioxide 23 mmol/L (22-29); Chloride 105 mmol/L (96-108); Creatinine Clr Calc Pharmacy 96.7; Estimated Glomerular Filt Rate > 60; Glucose Random 132 mg/dL (60-115); Potassium 4.3 mmol/L (3.3-5.1); Sodium 135 mmol/L (135-145); Total Protein 6.5 g/dL (6.5-8.0)
[2022-01-16] MEDS: Atropine Sulfate 1 MG/ML VIAL 0.5 MG SUBCUT (10:10)
[2022-01-16] MEDS: dexAMETHasone sod phosphate/NS 12 MG/50 ML PIGGYBACK 200 MG IV (10:10)
[2022-01-16] MEDS: Famotidine/PF 20 MG/2 ML VIAL IVPUSH (10:10)
[2022-01-16] MEDS: Heparin Sodium,Porcine Flush 500 UNIT/5 ML SYRINGE IVFLUSH (10:10)
[2022-01-16] MEDS: diphenhydrAMINE HCL 25 MG TABLET PO (10:12)
[2022-01-16] MEDS: Acetaminophen 325 MG TABLET 650 MG PO (10:12)
[2022-01-16] MEDS: SODIUM CHLORIDE 0.9% IV (12:15)
[2022-01-16] MEDS: BEVACIZUMAB IV (12:15)
--- NOTE | 2022-01-16 12:36 | PM.HEMONCPN ---
Medical Summary - Medical Summary Date of Service: 01/16/22 Chief complaint: follow-up Medical Summary: Metastatic colon cancer diagnosed in October 2018. Presented with abdominal pain, 30 pound weight loss and severe pain. He had abnormal colonoscopy in 2009. He was told he needed a repeat colonoscopy in 5 years but he did not go for testing. CT abdomen/pelvis with IV contrast shows multiple areas of wall thickening in the sigmoid colon as well as thickening and enhancement of cecum, terminal ileum. Long segment of wall thickening of the distal transverse colon and left colon. Enlarged mesenteric and retroperitoneal lymph nodes, multiple liver metastasis and lung metastasis, all of these worrisome for metastatic colorectal malignancy. 11/01/18-Core biopsy of the right liver mass, moderately differentiated adenocarcinoma consistent with colorectal primary. KRAS mutation not detected BRAF mutation not detected. NRAS negative, MSI proficient or MSI stable. He developed bowel obstruction, palliative bypass ileostomy has been performed in November 2018. He started on mFOLFOX/Avastin regimen from 11/27/2018. His last treatment cycle 13 was on 05/14/2019. 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 Repeat CT abdomen/pelvis on 09/18/2019 showed further decrease in size of liver metastasis. He was on maintenance Xeloda 1500 mg p.o. b.i.d. 2 weeks on/1 week off, along with bevacizumab Q 3 weeks starting 10/22/2019 until 12/13/2020. Rising CEA as well as imaging in November 2020 showed evidence of progressive disease. He started irinotecan with bevacizumab from December 2020. Interval History Interval history: Patient is here in follow-up and scheduled treatment. He says that he has noticed some discomfort in the right upper/posterior quadrant of his abdomen. It is not associated with any nausea or change in bowel habits. No fever or chills. Review of Systems - Constitutional Reports as per HPI, Reports no additional constitutional complaints - Cardiovascular Reports no additional cardiovascular complaints - Respiratory Reports no additional respiratory complaints - Gastrointestinal Reports no additional gastrointestinal complaints [facility] Medical History: Medical History (Last Reviewed 09/12/21 @ 09:45 by Sukh Patel RN) Chronic respiratory failure ILD (interstitial lung disease) Pulmonary fibrosis Pulmonary nodule Tubular adenoma Family History: Family History (Last Reviewed 09/12/21 @ 09:45 by Sukh Patel RN) Son Cystic fibrosis Brother Esophageal cancer Maternal Aunt Lung cancer Surgical History: Surgical History (Last Reviewed 09/12/21 @ 09:45 by Sukh Patel RN) H/O knee surgery Social History: Social History (Last Reviewed 09/12/21 @ 09:45 by Sukh Patel RN) Living Situation History: Household Members: Spouse Household Members: Children Substance Use History: Use of substances other than those prescribed or required for medical reasons: No Advance Directives: Advance Directives: Yes Advance Directives Information Provided: No Advance Directives on File: Yes Advance Directives Date on File: 10/31/18 Nutrition Assessment: Recently lost weight without trying: No Occupation Assessmet: service: No Current occupational status: employed Current occupation: [employer] Oncology 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 Performance Status ECOG Performance Status: 1 Home Medications and Allergies Current Medications: Current Medications Acetaminophen (Acetaminophen 325 Mg Tablet) 650 mg PO ONCE PINEDA Stop: 01/16/22 23:59 Last Admin: 01/16/22 10:12 Dose: 650 mg Documented by: Atropine Sulfate (Atropine Sulfate 1 Mg/Ml Vial) 0.5 mg SUBCUT ONCE PINEDA Stop: 01/16/22 23:59 Last Admin: 01/16/22 10:10 Dose: 0.5 mg Documented by: Diphenhydramine HCl (Diphenhydramine Hcl 25 Mg Tablet) 25 mg PO ONCE PINEDA Stop: 01/16/22 23:59 Last Admin: 01/16/22 10:12 Dose: 25 mg Documented by: Famotidine (Famotidine/Pf 20 Mg/2 Ml Vial) 20 mg IVPUSH ONCE PINEDA Stop: 01/16/22 23:59 Last Admin: 01/16/22 10:10 Dose: 20 mg Documented by: Heparin Sodium (Porcine) (Heparin Sodium,Porcine Flush 500 Unit/5 Ml Syringe) 500 unit IVFLUSH ONCE PINEDA Stop: 01/16/22 23:59 Last Admin: 01/16/22 10:10 Dose: 500 unit Documented by: Dexamethasone Sodium Phosphate (Decadron) 12 mg in 50 mls @ 200 mls/hr IV ONCE PINEDA Stop: 01/16/22 23:59 Last Admin: 01/16/22 10:10 Dose: 200 mls/hr Documented by: Ondansetron HCl (Zofran) 16 mg in 50 mls @ 200 mls/hr IV ONCE PINEDA Stop: 01/16/22 23:59 Last Admin: 01/16/22 10:09 Dose: 200 mls/hr Documented by: Bevacizumab 360 mg/ Sodium (Chloride) 100 mls @ 200 mls/hr IV ONCE PINEDA Stop: 01/16/22 23:59 Last Admin: 01/16/22 12:15 Dose: 200 mls/hr Documented by: Irinotecan HCl 250 mg/ (Dextrose) 512.5 mls @ 341.667 mls/hr IV ONCE PINEDA Stop: 01/16/22 23:59 Home Medications Medication Instructions Recorded Confirmed Type loperamide 2 mg capsule 2 mg PO QID PRN 05/19/20 01/16/22 History Allergies Allergy/AdvReac Type Severity Reaction Status Date / Time prednisone [PREDNISONE] AdvReac Intermediate Psychosis Verified 09/12/21 09:45 Exam Vital signs: Vital Signs Temp 97.8 F 01/16/22 08:51 Pulse 72 01/16/22 08:51 Resp 16 01/16/22 08:51 BP 118/65 01/16/22 08:51 Pulse Ox 95 01/16/22 08:51 Intake & Output 01/15/22 01/16/22 01/16/22 18:59 06:59 18:59 Other: Weight 71.5 kg Weight in Grams [id number] Weight 71.5 kg BMI result Body Mass Index 21.9 - Constitutional Present: no acute distress - Routine HEENT Exam Head: Present: normal inspection - Routine Neck Exam Present: full ROM. Absent: lymphadenopathy - Routine Respiratory Exam Present: CTAB - Routine Cardiovascular Exam Cardiovascular: Present: RRR, S1, S2 - Routine Abdominal Exam Present: normal bowel sounds, soft. Absent: mass, organomegaly - Routine Extremities Exam Present: full ROM. Absent: calf tenderness, pedal edema - Routine Skin Exam Present: intact. Absent: cyanosis, erythema - Routine Neurological Exam Present: alert, oriented X3 Data - Labs CBC & Chem 7: 01/16/22 09:00 01/16/22 09:00 Assessment and Plan Patient Active problem list reviewed?: Yes (1) Colon cancer metastasized to liver Status: Chronic Assessment and plan: 1. This is a 61-year-old gentleman, with metastatic colon carcinoma, with liver and lung metastases. Biopsy of the liver lesion, Moderately differentiated adenocarcinoma. KRAS and BRAF negative. NRAS negative, MSI proficient or MSI stable. HER2 and panTRK negative. Initial CEA elevated at 91. He developed bowel obstruction, palliative bypass ileostomy has been performed in November 2018. He started on mFOLFOX/Avastin regimen from 11/27/2018. His last treatment cycle 13 was on 05/14/2019. He was on maintenance Xeloda 1500 mg p.o. b.i.d. 2 weeks on/1 week off, along with bevacizumab Q 3 weeks starting 10/22/2019 until 12/13/2020. Rising CEA as well as imaging in November 2020 showed evidence of progressive disease. He started irinotecan with bevacizumab from December 2020. CEA level below 2. He is tolerating treatment well. 2. 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 He has been tapered off prednisone and CellCept. He is also off the oxygen. 3. Chronic arthralgias. He is on MSContin 30 mg b.i.d. he is on oxycodone 5 mg for breakthrough pain 2 to 3 times a day. 4. Intermittent elevation of bilirubin, indirect bilirubinemia, probable Gilbert's syndrome. Since he is having right upper quadrant discomfort, repeat CT abdomen/pelvis with contrast has been ordered. His previous imaging was in July 2021. Labs look good today, proceed with treatment. Follow-up in 3 weeks. - Time Spent With Patient Time Spent with Patient (in minutes): 15
[2022-01-16] MEDS: DEXTROSE 5% IV (12:53)
[2022-01-16] MEDS: IRINOTECAN HCL IV (12:53)
--- NOTE | 2022-01-16 15:05 | MHC.HEMONC ---
Pt here for C24D1 Avastin/Irinotecan. Port accessed with blood return noted. Labs drawn from port-specimen to lab. Pt states he is having cramps right lower side. States tingling'' in hands is less, tingling in feet the same. States he received a covid booster last week and had a fever for 24 hours with mild nausea. Lab results reviewed-okay to receive treatment today. Pre medicated with zofran, benadryl, pepcid, decadron, tylenol. Avastin/Irinotecan given as ordered-tolerated well. Dr Mckee into see pt. Port flushed with heparin and de accessed. Next appointment scheduled. Discharge packet given.
--- NOTE | 2022-01-16 15:57 | MHC.HEMONCSW ---
patient here for treatment reports coping well, very quiet, he keeps to himself. discussed physical and emotional topics. supportive counseling provided.
--- NOTE | 2022-01-16 16:01 | MHC.HEMONC ---
Order for CT abdomen pelvis with contrast printed and given to Marsha horn place in order folder seamer
--- NOTE | 2022-02-02 13:08 | HO.HEMONCSCH ---
Nurse called pt, requested he move his next chemo cycle from 02/06 to 02/07 due to scheduling needs. Pt confirmed this was ok, nurse rescheduled this chemo and informed Dr. Mckee.
[2022-02-07 08:53] VITALS: BP 101/57; PULSE 83; RESP 18; TEMP 35.9; O2SAT 94; BMI 21.2
[2022-02-07 09:20] LABS: MANUAL DIFF FLAG NO
[2022-02-07 09:26] LABS: Appearance Urine CLEAR; Color Urine YELLOW; Glucose Urine UA NEG (NEG); Leukocyte Esterase Urine NEG (NEG); Nitrite Urine NEG (NEG); Specific Gravity - Urine >= 1.030 (1.005-1.025); Urine Blood NEG (NEG); Urine Ketones NEG (NEG); Urine Protein NEG (NEG-TRACE)
[2022-02-07 09:28] LABS: Basophils Percent Auto 0.4 % (0-2); Eosinophils Absolute Auto 0.4 X10*3/uL (0.0-0.4); Eosinophils Percent Auto 7.9 % (0-4); Hematocrit 37.8 % (42.0-52.0); Hemoglobin 12.3 g/dl (14.0-18.0); Imm Gran Abs Auto 0.03 X10*3/uL (0.00-0.03); Imm Gran Pct Auto 0.6 % (0.0-0.4); Lymphocytes Absolute Auto 0.6 X10*3/uL (1.2-4.9); Lymphocytes Percent Auto 13.6 % (20-40); Mean Corpuscular HGB Conc 32.5 g/dl (31.0-36.0); Mean Corpuscular Volume 95.2 fL (80.0-98.0); Mean Platelet Volume 12.3 fL (9.4-12.4); Monocytes Absolute Auto 0.8 X10*3/uL (0.1-1.2); Monocytes Percent Auto 17.9 % (2-11); Neutrophils Absolute Auto 2.8 x10*3/uL (2.0-8.3); Neutrophils Percent Auto 59.6 % (45-73); Platelet Count 141 X10*3/uL (160-400); Red Blood Count 3.97 X10*6/uL (4.60-5.80); Red Cell Distribution Width 15.9 % (11.0-16.0); White Blood Count 4.7 X10*3/uL (4.8-10.8)
[2022-02-07 09:35] LABS: Alanine Aminotransferase 19 U/L (0-40); Albumin Level 3.7 g/dL (3.5-5.0); Alkaline Phosphatase 88 U/L (39-117); Anion Gap 13 (12-20); Aspartate Amino Transferase 32 U/L (5-37); Bilirubin Total 1.6 mg/dL (0.0-1.0); Blood Urea Nitrogen 9 mg/dL (9-16); Calcium 8.6 mg/dL (8.4-10.2); Carbon Dioxide 21 mmol/L (22-29); Chloride 104 mmol/L (96-108); Creatinine Clr Calc Pharmacy 82.1; Estimated Glomerular Filt Rate > 60; Glucose Random 116 mg/dL (60-115); Potassium 4.2 mmol/L (3.3-5.1); Sodium 134 mmol/L (135-145); Total Protein 6.6 g/dL (6.5-8.0)
[2022-02-07] MEDS: Acetaminophen 325 MG TABLET 650 MG PO (10:03)
[2022-02-07] MEDS: diphenhydrAMINE HCL 25 MG TABLET PO (10:04)
[2022-02-07] MEDS: Famotidine/PF 20 MG/2 ML VIAL IVPUSH (10:05)
[2022-02-07] MEDS: Heparin Sodium,Porcine Flush 500 UNIT/5 ML SYRINGE IVFLUSH (10:07)
[2022-02-07] MEDS: dexAMETHasone sod phosphate/NS 12 MG/50 ML PIGGYBACK 200 MG IV (10:10)
[2022-02-07] MEDS: Atropine Sulfate 1 MG/ML VIAL 0.5 MG SUBCUT (10:13)
[2022-02-07] MEDS: BEVACIZUMAB IV (12:03)
[2022-02-07] MEDS: SODIUM CHLORIDE 0.9% IV (12:03)
[2022-02-07] MEDS: IRINOTECAN HCL IV (12:48)
[2022-02-07] MEDS: DEXTROSE 5% IV (12:48)
--- NOTE | 2022-02-07 14:35 | MHC.HEMONC ---
Pt here for C25D1 Avastin/Irinotecan. Port accessed with blood return noted. Labs drawn from port-specimen to lab. Pt states he continues with fatigue, occasional loose stools, numbness and tingling in hands and feet-better than in previous weeks. Occasional nausea. Lab results reviewed-okay to receive treatment today. Pre medicated with zofran, benadryl, pepcid, decadron, tylenol, atropine sulfate 0.5 mg SC right arm-tolerated well. Avastin/Irrinotecan given as ordered-tolerated well. Port flushed with heparin and de accessed. Discharge packet given with next appointment scheduled.
[2022-02-27 08:49] VITALS: BP 116/71; PULSE 85; RESP 18; TEMP 36.4; O2SAT 93; BMI 20.4
[2022-02-27 09:43] LABS: MANUAL DIFF FLAG NO
[2022-02-27 09:48] LABS: Basophils Percent Auto 0.5 % (0-2); Eosinophils Absolute Auto 0.2 X10*3/uL (0.0-0.4); Eosinophils Percent Auto 5.5 % (0-4); Hemoglobin 13.1 g/dl (14.0-18.0); Imm Gran Abs Auto 0.04 X10*3/uL (0.00-0.03); Lymphocytes Absolute Auto 0.8 X10*3/uL (1.2-4.9); Lymphocytes Percent Auto 20.1 % (20-40); Mean Corpuscular Hemoglobin 30.2 pg (27.0-33.0); Mean Corpuscular Volume 94.5 fL (80.0-98.0); Monocytes Absolute Auto 0.7 X10*3/uL (0.1-1.2); Monocytes Percent Auto 16.3 % (2-11); Neutrophils Absolute Auto 2.4 x10*3/uL (2.0-8.3); Neutrophils Percent Auto 56.6 % (45-73); Platelet Count 210 X10*3/uL (160-400); Red Blood Count 4.34 X10*6/uL (4.60-5.80); Red Cell Distribution Width 16.4 % (11.0-16.0); White Blood Count 4.2 X10*3/uL (4.8-10.8)
[2022-02-27 09:50] LABS: Appearance Urine CLEAR; Color Urine DK YELLOW; Glucose Urine UA NEG (NEG); Leukocyte Esterase Urine NEG (NEG); Nitrite Urine NEG (NEG); PH 5.5 (5.0-8.0); Specific Gravity - Urine >= 1.030 (1.005-1.025); Urine Blood NEG (NEG); Urine Ketones NEG (NEG); Urine Protein 1+ MG/DL (NEG-TRACE)
[2022-02-27 10:02] LABS: Mucus Urine 4+ /LPF; RBC Urine 0 /HPF (0); Squamous Epithelial Cell Urine 1+ /LPF; WBC Urine 0 /HPF (0-4)
[2022-02-27 10:03] LABS: Granular Casts Urine 0-2 /LPF; Hyaline Casts Urine 0-2 /LPF
--- NOTE | 2022-02-27 10:07 | PM.HEMONCPN ---
Medical Summary - Medical Summary Date of Service: 02/27/22 Chief complaint: follow-up Medical Summary: Metastatic colon cancer diagnosed in October 2018. Presented with abdominal pain, 30 pound weight loss and severe pain. He had abnormal colonoscopy in 2009. He was told he needed a repeat colonoscopy in 5 years but he did not go for testing. CT abdomen/pelvis with IV contrast shows multiple areas of wall thickening in the sigmoid colon as well as thickening and enhancement of cecum, terminal ileum. Long segment of wall thickening of the distal transverse colon and left colon. Enlarged mesenteric and retroperitoneal lymph nodes, multiple liver metastasis and lung metastasis, all of these worrisome for metastatic colorectal malignancy. 11/01/18-Core biopsy of the right liver mass, moderately differentiated adenocarcinoma consistent with colorectal primary. KRAS mutation not detected BRAF mutation not detected. NRAS negative, MSI proficient or MSI stable. He developed bowel obstruction, palliative bypass ileostomy has been performed in November 2018. He started on mFOLFOX/Avastin regimen from 11/27/2018. His last treatment cycle 13 was on 05/14/2019. 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 Repeat CT abdomen/pelvis on 09/18/2019 showed further decrease in size of liver metastasis. He was on maintenance Xeloda 1500 mg p.o. b.i.d. 2 weeks on/1 week off, along with bevacizumab Q 3 weeks starting 10/22/2019 until 12/13/2020. Rising CEA as well as imaging in November 2020 showed evidence of progressive disease. He started irinotecan with bevacizumab from December 2020. Interval History Interval history: Patient is here in follow-up and scheduled treatment. He reports loss of appetite and weight loss. He continues to have mild abdominal discomfort. He has not been taking oxycodone much lately. He is requesting a refill. He denies feeling depressed. No other complaints such as fever, chills, nausea, cough, shortness of breath or change in bowel habits. [facility], [facility] Medical History: Medical History (Last Reviewed 09/12/21 @ 09:45 by Sukh Patel RN) Chronic respiratory failure ILD (interstitial lung disease) Pulmonary fibrosis Pulmonary nodule Tubular adenoma Family History: Family History (Last Reviewed 09/12/21 @ 09:45 by Sukh Patel RN) Son Cystic fibrosis Brother Esophageal cancer Maternal Aunt Lung cancer Surgical History: Surgical History (Last Reviewed 09/12/21 @ 09:45 by Sukh Patel RN) H/O knee surgery Social History: Social History (Last Reviewed 09/12/21 @ 09:45 by Sukh Patel RN) Living Situation History: Household Members: Spouse Household Members: Children Substance Use History: Use of substances other than those prescribed or required for medical reasons: No Advance Directives: Advance Directives: Yes Advance Directives Information Provided: No Advance Directives on File: Yes Advance Directives Date on File: 10/31/18 Nutrition Assessment: Recently lost weight without trying: No Occupation Assessmet: service: No Current occupational status: employed Current occupation: [employer] Medications and Allergies Current Medications: Current Medications Acetaminophen (Acetaminophen 325 Mg Tablet) 650 mg PO ONCE PINEDA Stop: 02/27/22 23:59 Atropine Sulfate (Atropine Sulfate 1 Mg/Ml Vial) 0.5 mg SUBCUT ONCE PINEDA Stop: 02/27/22 23:59 Diphenhydramine HCl (Diphenhydramine Hcl 25 Mg Tablet) 25 mg PO ONCE PINEDA Stop: 02/27/22 23:59 Famotidine (Famotidine/Pf 20 Mg/2 Ml Vial) 20 mg IVPUSH ONCE PINEDA Stop: 02/27/22 23:59 Heparin Sodium (Porcine) (Heparin Sodium,Porcine Flush 500 Unit/5 Ml Syringe) 500 unit IVFLUSH ONCE PINEDA Stop: 02/27/22 23:59 Dexamethasone Sodium Phosphate (Decadron) 12 mg in 50 mls @ 200 mls/hr IV ONCE PINEDA Stop: 02/27/22 23:59 Ondansetron HCl (Zofran) 16 mg in 50 mls @ 200 mls/hr IV ONCE PINEDA Stop: 02/27/22 23:59 Home Medications Medication Instructions Recorded Confirmed Type loperamide 2 mg capsule 2 mg PO QID PRN Diarrhea 05/19/20 02/07/22 History Allergies Allergy/AdvReac Type Severity Reaction Status Date / Time prednisone [PREDNISONE] AdvReac Intermediate Psychosis Verified 02/07/22 09:08 Exam Vital signs: Vital Signs Temp 97.5 F 02/27/22 08:49 Pulse 85 02/27/22 08:49 Resp 18 02/27/22 08:49 BP 116/71 02/27/22 08:49 Pulse Ox 93 02/27/22 08:49 O2 Del Method 02/27/22 08:49 Intake & Output 02/26/22 02/27/22 02/27/22 18:59 06:59 18:59 Other: Weight 66.5 kg Weight in Grams 47029 Weight 66.5 kg BMI result Body Mass Index 20.4 - Constitutional Present: no acute distress - Routine HEENT Exam Head: Present: normal inspection - Routine Neck Exam Present: full ROM. Absent: lymphadenopathy - Routine Respiratory Exam Present: CTAB - Routine Cardiovascular Exam Cardiovascular: Present: RRR, S1, S2 - Routine Abdominal Exam Present: normal bowel sounds, soft. Absent: mass, organomegaly - Routine Extremities Exam Present: full ROM. Absent: calf tenderness, pedal edema - Routine Skin Exam Present: intact. Absent: cyanosis, erythema - Routine Neurological Exam Present: alert, oriented X3 Data - Labs CBC & Chem 7: 02/27/22 09:25 02/27/22 09:25 Assessment and Plan Patient Active problem list reviewed?: Yes (1) Colon cancer metastasized to liver Status: Chronic Assessment and plan: 1. This is a 61-year-old gentleman, with metastatic colon carcinoma, with liver and lung metastases. Biopsy of the liver lesion, Moderately differentiated adenocarcinoma. KRAS and BRAF negative. NRAS negative, MSI proficient or MSI stable. HER2 and panTRK negative. Initial CEA elevated at 91. He developed bowel obstruction, palliative bypass ileostomy has been performed in November 2018. He started on mFOLFOX/Avastin regimen from 11/27/2018. His last treatment cycle 13 was on 05/14/2019. He was on maintenance Xeloda 1500 mg p.o. b.i.d. 2 weeks on/1 week off, along with bevacizumab Q 3 weeks starting 10/22/2019 until 12/13/2020. Rising CEA as well as imaging in November 2020 showed evidence of progressive disease. He started irinotecan with bevacizumab from December 2020. CEA level is beginning to rise. It is now slightly above 5 NG/mL. 2. 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 He has been tapered off prednisone and CellCept. He is also off the oxygen. 3. Chronic arthralgias. He is on MSContin 30 mg b.i.d. he is on oxycodone 5 mg for breakthrough pain 2 to 3 times a day. 4. Intermittent elevation of bilirubin, indirect bilirubinemia, probable Gilbert's syndrome. He is awaiting repeat scans, CT chest /abdomen and pelvis has been ordered. He may have disease progression. His chemotherapy will be switched if that is the case. Follow-up in 3 weeks. - Time Spent With Patient Time Spent with Patient (in minutes): 15
[2022-02-27 10:09] LABS: Alanine Aminotransferase 21 U/L (0-40); Alkaline Phosphatase 87 U/L (39-117); Anion Gap 12 (12-20); Aspartate Amino Transferase 37 U/L (5-37); Bilirubin Total 1.3 mg/dL (0.0-1.0); Blood Urea Nitrogen 15 mg/dL (9-16); Calcium 9.1 mg/dL (8.4-10.2); Carbon Dioxide 22 mmol/L (22-29); Chloride 105 mmol/L (96-108); Creatinine Clr Calc Pharmacy 83.6; Estimated Glomerular Filt Rate > 60; Glucose Random 153 mg/dL (60-115); Potassium 4.1 mmol/L (3.3-5.1); Sodium 135 mmol/L (135-145)
[2022-02-27] MEDS: Acetaminophen 325 MG TABLET 650 MG PO (11:23)
[2022-02-27] MEDS: diphenhydrAMINE HCL 25 MG TABLET PO (11:24)
[2022-02-27] MEDS: Famotidine/PF 20 MG/2 ML VIAL IVPUSH (11:24)
[2022-02-27] MEDS: dexAMETHasone sod phosphate/NS 12 MG/50 ML PIGGYBACK 200 MG IV (11:25)
[2022-02-27] MEDS: Heparin Sodium,Porcine Flush 500 UNIT/5 ML SYRINGE IVFLUSH (11:27)
[2022-02-27] MEDS: Atropine Sulfate 1 MG/ML VIAL 0.5 MG SUBCUT (12:34)
[2022-02-27] MEDS: SODIUM CHLORIDE 0.9% IV (12:37)
[2022-02-27] MEDS: BEVACIZUMAB IV (12:37)
[2022-02-27] MEDS: DEXTROSE 5% IV (13:26)
[2022-02-27] MEDS: IRINOTECAN HCL IV (13:26)
--- NOTE | 2022-02-27 15:29 | MHC.HEMONC ---
C25D1 AVASTIN/IRINOTECAN. PORT ACCESSED WITHOUT DIFFICULTY. POSITIVE BLOOD RETURN. LABS OBTAINED AND REVIEWED FOR TREATMENT. PT REPORTS NO APPETITE, FATIGUE. 5 LB WEIGHT LOSS NOTED. DR CLARK NOTIFIED. EXAM COMPLETED WITH MD TODAY. CT SCAN ORDERED GIVEN TO MILAGRO RASHEED TO PLACE IN ORDER SPECIAL ASSETS OFFICER. PT PRE MEDICATED WITH TYLENOL, BENADRYL, PEPCID, ATROPINE, DEXAMETHASONE , ZOFRAN. CHEMO INFUSION WELL TOLERATED. PORT DE-ACCESSED. FLUSHED WITH HEPARIN. NO REDNESS AT PORT. PRESCRIPTION OXYCODONE REFILLED. CHEMO D/C PACKET GIVEN. ENSURE SAMPLES PROVIDED.
--- NOTE | 2022-03-01 11:34 | MHC.HEMONCMA ---
order for ct abdomen pelvis w/con in OF.
--- NOTE | 2022-03-20 08:46 | P.PNHO-ONC_ITS ---
Medical Summary - Medical Summary Date of Service: 03/20/22 Chief complaint: Follow-up Medical Summary: Metastatic colon cancer diagnosed in October 2018. Presented with abdominal pain, 30 pound weight loss and severe pain. He had abnormal colonoscopy in 2009. He was told he needed a repeat colonoscopy in 5 years but he did not go for testing. CT abdomen/pelvis with IV contrast shows multiple areas of wall thickening in the sigmoid colon as well as thickening and enhancement of cecum, terminal ileum. Long segment of wall thickening of the distal transverse colon and left colon. Enlarged mesenteric and retroperitoneal lymph nodes, multiple liver metastasis and lung metastasis, all of these worrisome for metastatic colorectal malignancy. 11/01/18-Core biopsy of the right liver mass, moderately differentiated adenocarcinoma consistent with colorectal primary. KRAS mutation not detected BRAF mutation not detected. NRAS negative, MSI proficient or MSI stable. He developed bowel obstruction, palliative bypass ileostomy has been performed in November 2018. He started on mFOLFOX/Avastin regimen from 11/27/2018. His last treatment cycle 13 was on 05/14/2019. 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 Repeat CT abdomen/pelvis on 09/18/2019 showed further decrease in size of liver metastasis. He was on maintenance Xeloda 1500 mg p.o. b.i.d. 2 weeks on/1 week off, along with bevacizumab Q 3 weeks starting 10/22/2019 until 12/13/2020. Rising CEA as well as imaging in November 2020 showed evidence of progressive disease. He started irinotecan with bevacizumab from December 2020. Interval History Interval history: Patient is here in follow-up and scheduled treatment. He is doing better he thinks the heat may have contributed to some loss of appetite and weight loss recently. He denies abdominal discomfort that is new or worsening. No other complaints such as fever, chills, nausea, cough, shortness of breath or change in bowel habits. [facility] Medical History: Medical History (Last Reviewed 09/12/21 @ 09:45 by Sukh Patel RN) Chronic respiratory failure ILD (interstitial lung disease) Pulmonary fibrosis Pulmonary nodule Tubular adenoma Family History: Family History (Last Reviewed 09/12/21 @ 09:45 by Sukh Patel RN) Son Cystic fibrosis Brother Esophageal cancer Maternal Aunt Lung cancer Surgical History: Surgical History (Last Reviewed 09/12/21 @ 09:45 by Sukh Patel RN) H/O knee surgery Social History: Social History (Last Reviewed 09/12/21 @ 09:45 by Sukh Patel RN) Living Situation History: Household Members: Spouse Household Members: Children Substance Use History: Use of substances other than those prescribed or required for medical reasons : No Advance Directives: Advance Directives: Yes Advance Directives Information Provided: No Advance Directives on File: Yes Advance Directives Date on File: 10/31/18 Nutrition Assessment: Recently lost weight without trying: No Occupation Assessmet: service: No Current occupational status: employed Current occupation: [employer] Medications and Allergies Current Medications: Current Medications Acetaminophen (Acetaminophen 325 Mg Tablet) 650 mg PO ONCE PINEDA Stop: 03/20/22 23:59 Atropine Sulfate (Atropine Sulfate 1 Mg/Ml Vial) 0.5 mg SUBCUT ONCE PINEDA Stop: 03/20/22 23:59 Diphenhydramine HCl (Diphenhydramine Hcl 25 Mg Tablet) 25 mg PO ONCE PINEDA Stop: 03/20/22 23:59 Famotidine (Famotidine/Pf 20 Mg/2 Ml Vial) 20 mg IVPUSH ONCE PINEDA Stop: 03/20/22 23:59 Heparin Sodium (Porcine) (Heparin Sodium,Porcine Flush 500 Unit/5 Ml Syringe) 500 unit IVFLUSH ONCE PINEDA Stop: 03/20/22 23:59 Dexamethasone Sodium Phosphate (Decadron) 12 mg in 50 mls @ 200 mls/hr IV ONCE PINEDA Stop: 03/20/22 23:59 Ondansetron HCl (Zofran) 16 mg in 50 mls @ 200 mls/hr IV ONCE PINEDA Stop: 03/20/22 23:59 Home Medications Medication Instructions Recorded Confirmed Type loperamide 2 mg capsule 2 mg PO QID PRN Diarrhea 05/19/20 02/07/22 History Allergies Allergy/AdvReac Type Severity Reaction Status Date / Time prednisone [PREDNISONE] AdvReac Intermediate Psychosis Verified 02/07/22 09:08 Exam Vital signs: Vital Signs Temp 97.5 F 02/27/22 08:49 Pulse 85 02/27/22 08:49 Resp 18 02/27/22 08:49 BP 116/71 02/27/22 08:49 Pulse Ox 93 02/27/22 08:49 O2 Del Method 02/27/22 08:49 Weight 66.5 kg BMI result Body Mass Index 20.4 - Constitutional Present: no acute distress - Routine HEENT Exam Head: Present: normal inspection - Routine Neck Exam Present: full ROM. Absent: lymphadenopathy - Routine Respiratory Exam Present: CTAB - Routine Cardiovascular Exam Cardiovascular: Present: RRR, S1, S2 - Routine Abdominal Exam Present: normal bowel sounds, soft. Absent: mass, organomegaly - Routine Extremities Exam Present: full ROM. Absent: calf tenderness, pedal edema - Routine Skin Exam Present: intact. Absent: cyanosis, erythema - Routine Neurological Exam Present: alert, oriented X3 Data - Labs CBC & Chem 7: 03/20/22 09:26 03/20/22 09:26 Assessment and Plan Patient Active problem list reviewed?: Yes (1) Colon cancer metastasized to liver Status: Chronic Assessment and plan: 1. This is a 61-year-old gentleman, with metastatic colon carcinoma, with liver and lung metastases. Biopsy of the liver lesion, Moderately differentiated adenocarcinoma. KRAS and BRAF negative. NRAS negative, MSI proficient or MSI stable. HER2 and panTRK negative. Initial CEA elevated at 91. He developed bowel obstruction, palliative bypass ileostomy has been performed in November 2018. He started on mFOLFOX/Avastin regimen from 11/27/2018. His last treatment cycle 13 was on 05/14/2019. He was on maintenance Xeloda 1500 mg p.o. b.i.d. 2 weeks on/1 week off, along with bevacizumab Q 3 weeks starting 10/22/2019 until 12/13/2020. Rising CEA as well as imaging in November 2020 showed evidence of progressive disease. He started irinotecan with bevacizumab from December 2020. CEA level is beginning to rise. It is now slightly above 5 NG/mL. 2. 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 He has been tapered off prednisone and CellCept. He is also off the oxygen. 3. Chronic arthralgias. He is on MSContin 30 mg b.i.d. he is on oxycodone 5 mg for breakthrough pain 2 to 3 times a day. 4. Intermittent elevation of bilirubin, indirect bilirubinemia, probable Gilbert's syndrome. Repeat CT abdomen/pelvis in February 2022 showed no significant progression of dise ase. He will be continued on the same medications. If Ca goes above 10, add Xeloda to his regimen. Follow-up in 6 weeks. - Time Spent With Patient Time Spent with Patient (in minutes): 15
[2022-03-20 09:23] VITALS: BP 128/66; PULSE 84; RESP 84; TEMP 36.1; O2SAT 94; BMI 20.6
[2022-03-20 09:27] LABS: MANUAL DIFF FLAG NO
[2022-03-20 09:47] LABS: Appearance Urine CLEAR; Color Urine YELLOW; Glucose Urine UA NEG (NEG); Leukocyte Esterase Urine NEG (NEG); Nitrite Urine NEG (NEG); Urine Blood NEG (NEG); Urine Ketones NEG (NEG); Urine Protein NEG (NEG-TRACE)
[2022-03-20 09:58] LABS: Basophils Percent Auto 0.9 % (0-2); Eosinophils Absolute Auto 0.2 X10*3/uL (0.0-0.4); Hemoglobin 12.2 g/dl (14.0-18.0); Imm Gran Abs Auto 0.02 X10*3/uL (0.00-0.03); Imm Gran Pct Auto 0.6 % (0.0-0.4); Lymphocytes Absolute Auto 0.7 X10*3/uL (1.2-4.9); Lymphocytes Percent Auto 20.6 % (20-40); Mean Corpuscular HGB Conc 32.1 g/dl (31.0-36.0); Mean Corpuscular Hemoglobin 30.6 pg (27.0-33.0); Mean Corpuscular Volume 95.2 fL (80.0-98.0); Mean Platelet Volume 12.1 fL (9.4-12.4); Monocytes Absolute Auto 0.5 X10*3/uL (0.1-1.2); Monocytes Percent Auto 13.1 % (2-11); Neutrophils Absolute Auto 2.1 x10*3/uL (2.0-8.3); Neutrophils Percent Auto 58.8 % (45-73); Platelet Count 123 X10*3/uL (160-400); Red Blood Count 3.99 X10*6/uL (4.60-5.80); Red Cell Distribution Width 16.9 % (11.0-16.0); White Blood Count 3.5 X10*3/uL (4.8-10.8)
[2022-03-20 10:16] LABS: Alanine Aminotransferase 28 U/L (0-40); Albumin Level 3.7 g/dL (3.5-5.0); Alkaline Phosphatase 87 U/L (39-117); Anion Gap 14 (12-20); Aspartate Amino Transferase 38 U/L (5-37); Bilirubin Total 1.8 mg/dL (0.0-1.0); Blood Urea Nitrogen 10 mg/dL (9-16); Calcium 8.8 mg/dL (8.4-10.2); Carbon Dioxide 22 mmol/L (22-29); Chloride 105 mmol/L (96-108); Creatinine Clr Calc Pharmacy 99.5; Estimated Glomerular Filt Rate > 60; Glucose Random 119 mg/dL (60-115); Sodium 137 mmol/L (135-145); Total Protein 6.3 g/dL (6.5-8.0)
[2022-03-20] MEDS: dexAMETHasone sod phosphate/NS 12 MG/50 ML PIGGYBACK 200 MG IV (10:43)
[2022-03-20] MEDS: Famotidine/PF 20 MG/2 ML VIAL IVPUSH (10:44)
[2022-03-20] MEDS: diphenhydrAMINE HCL 25 MG TABLET PO (10:44)
[2022-03-20] MEDS: Acetaminophen 325 MG TABLET 650 MG PO (10:44)
--- NOTE | 2022-03-20 11:41 | HE.PHANOTE ---
Irinotecan Tbili 1.8. Recommended to reduce dose to 75 %... Dr Mckee wanted to keep at 100 percent.
[2022-03-20] MEDS: SODIUM CHLORIDE 0.9% IV (12:10)
[2022-03-20] MEDS: BEVACIZUMAB IV (12:10)
[2022-03-20] MEDS: Atropine Sulfate 1 MG/ML VIAL 0.5 MG SUBCUT (12:12)
[2022-03-20] MEDS: DEXTROSE 5% IV (12:58)
[2022-03-20] MEDS: IRINOTECAN HCL IV (12:58)
[2022-03-20] MEDS: Heparin Sodium,Porcine Flush 500 UNIT/5 ML SYRINGE IVFLUSH (14:35)
--- NOTE | 2022-03-20 15:15 | MHC.HEMONC ---
Pt here for C27D1 Avastin, Irinotecan. Port to right chest accessed, good blood return but unable to draw labs. Labs drawn peripherally. Pt offered no new complaints. Continues to have his usual fatigue and neuropathy Labs reviewed. Pre medicated with tylenol po, atropine subq, dexamethasone IV, benadryl IV, Pepcid IV, Zofran IV as ordered. Pt toll treatment well. Port to right chest flushed with heparin and de-accessed. Site benign. Pt given calender with d/c packet. Next chemo treatment in 3 weeks with an onc follow up Dr Mckee.
--- NOTE | 2022-03-22 13:06 | MHC.HEMONC ---
Pt's Selena called to inform Dr. Mckee that he will be having a dental procedure on 04/04/22, and this is 1 week before pt's next sched cycle of Avastin/Irinotecan on 04/10/22. Dr. Mckee was notified and said, due to risk of bleed from Avastin, pt's tx cycle should be pushed back 1 week, so that his next cycle is at least 2 weeks after his dental work. Nurse called back pt's , Selena, informed her that his next cycle would be rescheduled for 04/19/22, and subsequent cycle was pushed back another week to maintain 21D cycle. Nurse added note to pt's tx plan.
--- NOTE | 2022-04-04 10:55 | MHC.HEMONC ---
I faxed back dental form re: clearance for teeth extractions ([facility]) at their request. Pt must wait until after 04/[address] Mckee due to pt given Avastin 2 weeks ago and this must be held for 30 days prior to procedure.
--- NOTE | 2022-04-07 13:10 | MHC.HEMONC ---
Addendum entered by Sukh Patel RN 04/07/22 13:17: Upcoming cycle sched for 04/10/22 is actually C27D1, and subsequent cycle on 05/01/22 will be C28D1. Original Note: Nurse contacted pt at home, spoke w/ his , Selena, who confirmed he will be having tooth extraction, now rescheduled for 04/19/22. Dr. Mckee was informed, says that pt may have his next chemo cycle rescheduled for next week, and we will be holding the Avastin d/t bleed risk, and pt will receive Irinotecan only for this upcoming cycle. Nurse spoke w/ Selena, rescheduled pt's upcoming C28D1 for 04/10/22 at 09:00. She said this would likely be fine, but pt is asleep at the moment, and if he has any problem w/ this date/time, they will call to let us know. Nurse sought further clarification from Dr. Mckee regarding the subsequent cycle, C29, which would be on 05/01/22, and asked whether the Avastin would still be on hold for that cycle as well. Dr. Mckee said it will depend how pt does w/ dental extraction, and this will be decided later. Nurse added note to pt's paper tx plan folder.
[2022-04-10 08:53] VITALS: BP 109/67; PULSE 81; RESP 17; TEMP 36.2; O2SAT 94; BMI 20.9
[2022-04-10 09:20] LABS: MANUAL DIFF FLAG NO
[2022-04-10 09:29] LABS: Basophils Percent Auto 0.6 % (0-2); Eosinophils Absolute Auto 0.2 X10*3/uL (0.0-0.4); Eosinophils Percent Auto 6.4 % (0-4); Hematocrit 38.3 % (42.0-52.0); Hemoglobin 12.3 g/dl (14.0-18.0); Imm Gran Abs Auto 0.01 X10*3/uL (0.00-0.03); Imm Gran Pct Auto 0.3 % (0.0-0.4); Lymphocytes Absolute Auto 0.8 X10*3/uL (1.2-4.9); Lymphocytes Percent Auto 26.8 % (20-40); Mean Corpuscular HGB Conc 32.1 g/dl (31.0-36.0); Mean Corpuscular Hemoglobin 30.8 pg (27.0-33.0); Mean Corpuscular Volume 95.8 fL (80.0-98.0); Mean Platelet Volume 11.7 fL (9.4-12.4); Monocytes Absolute Auto 0.5 X10*3/uL (0.1-1.2); Monocytes Percent Auto 16.9 % (2-11); Neutrophils Absolute Auto 1.5 x10*3/uL (2.0-8.3); Platelet Count 135 X10*3/uL (160-400); Red Cell Distribution Width 17.3 % (11.0-16.0); White Blood Count 3.1 X10*3/uL (4.8-10.8)
[2022-04-10 09:37] LABS: Alanine Aminotransferase 22 U/L (0-40); Albumin Level 3.7 g/dL (3.5-5.0); Alkaline Phosphatase 88 U/L (39-117); Anion Gap 13 (12-20); Aspartate Amino Transferase 34 U/L (5-37); Bilirubin Total 1.6 mg/dL (0.0-1.0); Blood Urea Nitrogen 8 mg/dL (9-16); Carbon Dioxide 25 mmol/L (22-29); Chloride 106 mmol/L (96-108); Creatinine Clr Calc Pharmacy 91.1; Estimated Glomerular Filt Rate > 60; Glucose Random 135 mg/dL (60-115); Potassium 4.1 mmol/L (3.3-5.1); Sodium 140 mmol/L (135-145); Total Protein 6.4 g/dL (6.5-8.0)
[2022-04-10] MEDS: Acetaminophen 325 MG TABLET 650 MG PO (10:01)
[2022-04-10] MEDS: diphenhydrAMINE HCL 25 MG TABLET PO (10:01)
[2022-04-10] MEDS: Famotidine/PF 20 MG/2 ML VIAL IVPUSH (10:02)
[2022-04-10] MEDS: Heparin Sodium,Porcine Flush 500 UNIT/5 ML SYRINGE IVFLUSH (10:02)
[2022-04-10] MEDS: dexAMETHasone sod phosphate/NS 12 MG/50 ML PIGGYBACK 200 MG IV (10:02)
[2022-04-10] MEDS: Atropine Sulfate 1 MG/ML VIAL 0.5 MG SUBCUT (10:03)
[2022-04-10] MEDS: DEXTROSE 5% IV (11:26)
[2022-04-10] MEDS: IRINOTECAN HCL IV (11:26)
--- NOTE | 2022-04-10 14:54 | MHC.HEMONC ---
Pt here for C27D1 (21 day cycle) Irinotecan. Avastin held due to planned dental extractions on 04/19/22. Port right chest accessed good blood return. Blood drawn and sent to lab. CBC,CMP reviewed with Dr Mckee. Ok to give treatment, wbc 3.1 and anc 1.5. Pt also asking for refill of morphine. Dr Mckee will sent new script. Pt offers no complaints except for dental issues. Pre meds given as ordered and Irinotecan infused. Pt toll well. Port was de accessed and flushed with saline then heparin. Site benign. Discharge packet given to patient with next treatment and follow up on 05/01/22.
--- NOTE | 2022-05-01 08:46 | P.PNHO-ONC_ITS ---
Medical Summary - Medical Summary Date of Service: 05/01/22 Chief complaint: Follow-up Medical Summary: Metastatic colon cancer diagnosed in October 2018. Presented with abdominal pain, 30 pound weight loss and severe pain. He had abnormal colonoscopy in 2009. He was told he needed a repeat colonoscopy in 5 years but he did not go for testing. CT abdomen/pelvis with IV contrast shows multiple areas of wall thickening in the sigmoid colon as well as thickening and enhancement of cecum, terminal ileum. Long segment of wall thickening of the distal transverse colon and left colon. Enlarged mesenteric and retroperitoneal lymph nodes, multiple liver metastasis and lung metastasis, all of these worrisome for metastatic colorectal malignancy. 11/01/18-Core biopsy of the right liver mass, moderately differentiated adenocarcinoma consistent with colorectal primary. KRAS mutation not detected BRAF mutation not detected. NRAS negative, MSI proficient or MSI stable. He developed bowel obstruction, palliative bypass ileostomy has been performed in November 2018. He started on mFOLFOX/Avastin regimen from 11/27/2018. His last treatment cycle 13 was on 05/14/2019. 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 Repeat CT abdomen/pelvis on 09/18/2019 showed further decrease in size of liver metastasis. He was on maintenance Xeloda 1500 mg p.o. b.i.d. 2 weeks on/1 week off, along with bevacizumab Q 3 weeks starting 10/22/2019 until 12/13/2020. Rising CEA as well as imaging in November 2020 showed evidence of progressive disease. He started irinotecan with bevacizumab from December 2020. Interval History Interval history: Patient is here in follow-up and scheduled treatment. He is eating better and has gained some weight. No other complaints such as fever, chills, nausea, cough, shortness of breath or change in bowel habits. He had dental work done, 4 teeth were pulled about 10 days ago. He is healing well. Review of Systems - Constitutional Reports as per HPI, Reports no additional constitutional complaints, Denies anorexia, Denies fatigue, Denies fever(s), Denies poor appetite - Cardiovascular Reports no additional cardiovascular complaints - Respiratory Reports no additional respiratory complaints - Gastrointestinal Reports no additional gastrointestinal complaints [facility] Medical History: Medical History (Last Reviewed 09/12/21 @ 09:45 by Sukh Patel RN) Chronic respiratory failure ILD (interstitial lung disease) Pulmonary fibrosis Pulmonary nodule Tubular adenoma Family History: Family History (Last Reviewed 09/12/21 @ 09:45 by Sukh Patel RN) Son Cystic fibrosis Brother Esophageal cancer Maternal Aunt Lung cancer Surgical History: Surgical History (Last Reviewed 09/12/21 @ 09:45 by Sukh Patel RN) H/O knee surgery Social History: Social History (Last Reviewed 09/12/21 @ 09:45 by Sukh Patel RN) Living Situation History: Household Members: Spouse Household Members: Children Substance Use History: Use of substances other than those prescribed or required for medical reasons : No Advance Directives: Advance Directives: Yes Advance Directives Information Provided: No Advance Directives on File: Yes Advance Directives Date on File: 10/31/18 Nutrition Assessment: Recently lost weight without trying: No Occupation Assessmet: service: No Current occupational status: employed Current occupation: [employer] 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 Performance Status ECOG Performance Status: 1 Home Medications and Allergies Home Medications Medication Instructions Recorded Confirmed Type loperamide 2 mg capsule 2 mg PO QID PRN Diarrhea 05/19/20 05/01/22 History Allergies Allergy/AdvReac Type Severity Reaction Status Date / Time prednisone [PREDNISONE] AdvReac Intermediate Psychosis Verified 02/07/22 09:08 Exam Vital signs: Vital Signs Temp 97.2 F 04/10/22 08:53 Pulse 81 04/10/22 08:53 Resp 17 04/10/22 08:53 BP 109/67 04/10/22 08:53 Pulse Ox 94 04/10/22 08:53 O2 Del Method 04/10/22 08:53 Weight 68.2 kg BMI result Body Mass Index 20.9 - Constitutional Present: no acute distress - Routine HEENT Exam Head: Present: normal inspection - Routine Neck Exam Present: full ROM. Absent: lymphadenopathy - Routine Respiratory Exam Present: CTAB - Routine Cardiovascular Exam Cardiovascular: Present: RRR, S1, S2 - Routine Abdominal Exam Present: normal bowel sounds, soft. Absent: mass, organomegaly - Routine Extremities Exam Present: full ROM. Absent: calf tenderness, pedal edema - Routine Skin Exam Present: intact. Absent: cyanosis, erythema - Routine Neurological Exam Present: alert, oriented X3 Data - Labs CBC & Chem 7: 05/01/22 09:00 05/01/22 09:00 Assessment and Plan Patient Active problem list reviewed?: Yes (1) Colon cancer metastasized to liver Status: Chronic Assessment and plan: 1. This is a 61-year-old gentleman, with metastatic colon carcinoma, with liver and lung metastases. Biopsy of the liver lesion, Moderately differentiated adenocarcinoma. KRAS and BRAF negative. NRAS negative, MSI proficient or MSI stable. HER2 and panTRK negative. Initial CEA elevated at 91. He developed bowel obstruction, palliative bypass ileostomy has been performed in November 2018. He started on mFOLFOX/Avastin regimen from 11/27/2018. His last treatment cycle 13 was on 05/14/2019. He was on maintenance Xeloda 1500 mg p.o. b.i.d. 2 weeks on/1 week off, along with bevacizumab Q 3 weeks starting 10/22/2019 until 12/13/2020. Rising CEA as well as imaging in November 2020 showed evidence of progressive disease. He started irinotecan with bevacizumab from December 2020. 2. 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 He has been tapered off prednisone and CellCept. He is also off the oxygen. 3. Chronic arthralgias. He is on MSContin 30 mg b.i.d. he is on oxycodone 5 mg for breakthrough pain 2 to 3 times a day. 4. Intermittent elevation of bilirubin, indirect bilirubinemia, probable Gilbert's syndrome. Repeat CT abdomen/pelvis in February 2022 showed no significant progression of disease. He will be continued on the same medications. Bevacizumab is on hold this week because of recent teeth extractions. Follow-up in 6 weeks. - Time Spent With Patient Time Spent with Patient (in minutes): 10
[2022-05-01 09:09] VITALS: BP 103/62; PULSE 81; RESP 18; TEMP 35.9; O2SAT 95; BMI 20.5
[2022-05-01 09:14] LABS: MANUAL DIFF FLAG NO
[2022-05-01 09:16] LABS: Basophils Percent Auto 0.7 % (0-2); Eosinophils Absolute Auto 0.2 X10*3/uL (0.0-0.4); Eosinophils Percent Auto 5.2 % (0-4); Hematocrit 34.9 % (42.0-52.0); Hemoglobin 11.3 g/dl (14.0-18.0); Imm Gran Abs Auto 0.03 X10*3/uL (0.00-0.03); Imm Gran Pct Auto 0.7 % (0.0-0.4); Lymphocytes Absolute Auto 0.8 X10*3/uL (1.2-4.9); Lymphocytes Percent Auto 17.8 % (20-40); Mean Corpuscular HGB Conc 32.4 g/dl (31.0-36.0); Mean Corpuscular Hemoglobin 30.8 pg (27.0-33.0); Mean Corpuscular Volume 95.1 fL (80.0-98.0); Monocytes Absolute Auto 0.5 X10*3/uL (0.1-1.2); Monocytes Percent Auto 11.5 % (2-11); Neutrophils Percent Auto 64.1 % (45-73); Platelet Count 166 X10*3/uL (160-400); Red Blood Count 3.67 X10*6/uL (4.60-5.80); Red Cell Distribution Width 16.3 % (11.0-16.0); White Blood Count 4.6 X10*3/uL (4.8-10.8)
[2022-05-01 09:35] LABS: Alanine Aminotransferase 32 U/L (0-40); Albumin Level 3.4 g/dL (3.5-5.0); Alkaline Phosphatase 92 U/L (39-117); Anion Gap 13 (12-20); Aspartate Amino Transferase 42 U/L (5-37); Bilirubin Total 0.6 mg/dL (0.0-1.0); Blood Urea Nitrogen 10 mg/dL (9-16); Calcium 8.6 mg/dL (8.4-10.2); Carbon Dioxide 23 mmol/L (22-29); Chloride 106 mmol/L (96-108); Creatinine Clr Calc Pharmacy 100.7; Estimated Glomerular Filt Rate > 60; Glucose Random 117 mg/dL (60-115); Potassium 3.9 mmol/L (3.3-5.1); Sodium 138 mmol/L (135-145); Total Protein 6.1 g/dL (6.5-8.0)
[2022-05-01] MEDS: Acetaminophen 325 MG TABLET 650 MG PO (10:09)
[2022-05-01] MEDS: diphenhydrAMINE HCL 25 MG TABLET PO (10:10)
[2022-05-01] MEDS: Atropine Sulfate 1 MG/ML VIAL 0.5 MG SUBCUT (10:10)
[2022-05-01] MEDS: Famotidine/PF 20 MG/2 ML VIAL IVPUSH (10:11)
[2022-05-01] MEDS: Heparin Sodium,Porcine Flush 500 UNIT/5 ML SYRINGE IVFLUSH (10:13)
[2022-05-01] MEDS: dexAMETHasone sod phosphate/NS 12 MG/50 ML PIGGYBACK 200 MG IV (10:14)
[2022-05-01] MEDS: DEXTROSE 5% IV (11:15)
[2022-05-01] MEDS: IRINOTECAN HCL IV (11:15)
--- NOTE | 2022-05-01 13:46 | MHC.HEMONC ---
Pt here for C28D1 Irinotecan (PA not required per Marsha Love) Avastin on hold until next cycle per Dr Mckee. Pt had 4 teeth extracted beginning of April. Dr Mckee into see pt. Pt states he continues with fatigue and loose stools which he manages with medication. Continues with numbness and tingling in feet and hands (hands improving per pt) Port accessed with blood return noted. Labs drawn from port-specimen to lab. Lab results reviewed okay to receive treatment today. Pre medicated with atropine sulfate 0.5mg SC right arm-tolerated well, zofran, decadron, pepcid, tylenol, benadryl, Irrinotecan given as directed-tolerated well. Port flushed with heparin and de accessed. Next appointment scheduled in 21 days. Discharge packet given.
--- NOTE | 2022-05-08 15:37 | MHC.HEMONC ---
Triage Line- refill request for Morphine. Dr. Mckee aware- order placed.
[2022-05-23 08:58] VITALS: BP 119/59; PULSE 74; RESP 17; TEMP 36.4; O2SAT 97; BMI 20.6
[2022-05-23 09:19] LABS: MANUAL DIFF FLAG NO
[2022-05-23 09:20] LABS: Basophils Percent Auto 0.3 % (0-2); Eosinophils Absolute Auto 0.2 X10*3/uL (0.0-0.4); Eosinophils Percent Auto 5.4 % (0-4); Hematocrit 37.1 % (42.0-52.0); Hemoglobin 11.8 g/dl (14.0-18.0); Imm Gran Abs Auto 0.01 X10*3/uL (0.00-0.03); Imm Gran Pct Auto 0.3 % (0.0-0.4); Lymphocytes Absolute Auto 0.8 X10*3/uL (1.2-4.9); Lymphocytes Percent Auto 21.2 % (20-40); Mean Corpuscular HGB Conc 31.8 g/dl (31.0-36.0); Mean Corpuscular Hemoglobin 30.5 pg (27.0-33.0); Mean Corpuscular Volume 95.9 fL (80.0-98.0); Monocytes Absolute Auto 0.4 X10*3/uL (0.1-1.2); Monocytes Percent Auto 11.3 % (2-11); Neutrophils Absolute Auto 2.2 x10*3/uL (2.0-8.3); Neutrophils Percent Auto 61.5 % (45-73); Platelet Count 127 X10*3/uL (160-400); Red Blood Count 3.87 X10*6/uL (4.60-5.80); Red Cell Distribution Width 16.8 % (11.0-16.0); White Blood Count 3.5 X10*3/uL (4.8-10.8)
[2022-05-23 09:21] LABS: Appearance Urine Clear; Color Urine Yellow; Glucose Urine UA Negative (Negative); Leukocyte Esterase Urine Negative (Negative); Nitrite Urine Negative (Negative); Urine Blood Negative (Negative); Urine Ketones Negative (Negative); Urine Protein Negative (Neg-Trace)
[2022-05-23 10:34] LABS: Alanine Aminotransferase 25 U/L (0-40); Albumin Level 3.8 g/dL (3.5-5.0); Alkaline Phosphatase 93 U/L (39-117); Anion Gap 14 (12-20); Aspartate Amino Transferase 37 U/L (5-37); Bilirubin Total 0.9 mg/dL (0.0-1.0); Blood Urea Nitrogen 10 mg/dL (9-16); Calcium 8.8 mg/dL (8.4-10.2); Carbon Dioxide 23 mmol/L (22-29); Chloride 106 mmol/L (96-108); Creatinine Clr Calc Pharmacy 96.8; Estimated Glomerular Filt Rate > 60; Glucose Random 123 mg/dL (60-115); Potassium 4.2 mmol/L (3.3-5.1); Sodium 139 mmol/L (135-145); Total Protein 6.4 g/dL (6.5-8.0)
[2022-05-23] MEDS: Acetaminophen 325 MG TABLET 650 MG PO (11:07)
[2022-05-23] MEDS: Famotidine/PF 20 MG/2 ML VIAL IVPUSH (11:08)
[2022-05-23] MEDS: dexAMETHasone sod phosphate/NS 12 MG/50 ML PIGGYBACK 200 MG IV (11:08)
[2022-05-23] MEDS: Heparin Sodium,Porcine Flush 500 UNIT/5 ML SYRINGE IVFLUSH (11:08)
--- NOTE | 2022-05-23 11:39 | P.PNHO-ONC_ITS ---
Medical Summary - Medical Summary Date of Service: 05/23/22 Chief complaint: Follow-up Medical Summary: Metastatic colon cancer diagnosed in October 2018. Presented with abdominal pain, 30 pound weight loss and severe pain. He had abnormal colonoscopy in 2009. He was told he needed a repeat colonoscopy in 5 years but he did not go for testing. CT abdomen/pelvis with IV contrast shows multiple areas of wall thickening in the sigmoid colon as well as thickening and enhancement of cecum, terminal ileum. Long segment of wall thickening of the distal transverse colon and left colon. Enlarged mesenteric and retroperitoneal lymph nodes, multiple liver metastasis and lung metastasis, all of these worrisome for metastatic colorectal malignancy. 11/01/18-Core biopsy of the right liver mass, moderately differentiated adenocarcinoma consistent with colorectal primary. KRAS mutation not detected BRAF mutation not detected. NRAS negative, MSI proficient or MSI stable. He developed bowel obstruction, palliative bypass ileostomy has been performed in November 2018. He started on mFOLFOX/Avastin regimen from 11/27/2018. His last treatment cycle 13 was on 05/14/2019. 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 Repeat CT abdomen/pelvis on 09/18/2019 showed further decrease in size of liver metastasis. He was on maintenance Xeloda 1500 mg p.o. b.i.d. 2 weeks on/1 week off, along with bevacizumab Q 3 weeks starting 10/22/2019 until 12/13/2020. Rising CEA as well as imaging in November 2020 showed evidence of progressive disease. He started irinotecan with bevacizumab from December 2020. Interval History Interval history: Patient is here in follow-up and scheduled treatment. He is eating better and has gained some weight. No other complaints such as fever, chills, nausea, cough, shortness of breath or change in bowel habits. He had dental work done, 6 teeth were pulled amost 4 weeks ago. He is healing well. He will eventually need fillings and dentures. Review of Systems - Constitutional Reports as per HPI, Denies fatigue, Denies lack of energy, Denies poor appetite, Denies weight loss - Cardiovascular Reports no additional cardiovascular complaints - Respiratory Reports no additional respiratory complaints [facility] Medical History: Medical History (Last Reviewed 09/12/21 @ 09:45 by Sukh Patel RN) Chronic respiratory failure ILD (interstitial lung disease) Pulmonary fibrosis Pulmonary nodule Tubular adenoma Family History: Family History (Last Reviewed 09/12/21 @ 09:45 by Sukh Patel RN) Son Cystic fibrosis Brother Esophageal cancer Maternal Aunt Lung cancer Surgical History: Surgical History (Last Reviewed 09/12/21 @ 09:45 by Sukh Patel RN) H/O knee surgery Social History: Social History (Last Reviewed 09/12/21 @ 09:45 by Sukh Patel, LORE[place]) Living Situation History: Household Members: Spouse Household Members: Children Substance Use History: Use of substances other than those prescribed or required for medical reasons : No Advance Directives: Advance Directives: Yes Advance Directives Information Provided: No Advance Directives on File: Yes Advance Directives Date on File: 10/31/18 Nutrition Assessment: Recently lost weight without trying: No Occupation Assessmet: service: No Current occupational status: employed Current occupation: [employer] Medications and Allergies Current Medications: Current Medications Acetaminophen (Acetaminophen 325 Mg Tablet) 650 mg PO ONCE PINEDA Stop: 05/23/22 23:59 Last Admin: 05/23/22 11:07 Dose: 650 mg Acetaminophen (Acetaminophen 325 Mg Tablet) 650 mg PO ONCE PINEDA Stop: 05/23/22 23:59 Atropine Sulfate (Atropine Sulfate 1 Mg/Ml Vial) 0.5 mg SUBCUT ONCE PINEDA Stop: 05/23/22 23:59 Diphenhydramine HCl (Diphenhydramine Hcl 25 Mg Tablet) 25 mg PO ONCE PINEDA Stop: 05/23/22 23:59 Famotidine (Famotidine/Pf 20 Mg/2 Ml Vial) 20 mg IVPUSH ONCE PINEDA Stop: 05/23/22 23:59 Last Admin: 05/23/22 11:08 Dose: 20 mg Heparin Sodium (Porcine) (Heparin Sodium,Porcine Flush 500 Unit/5 Ml Syringe) 500 unit IVFLUSH ONCE PINEDA Stop: 05/23/22 23:59 Last Admin: 05/23/22 11:08 Dose: 500 unit Dexamethasone Sodium Phosphate (Decadron) 12 mg in 50 mls @ 200 mls/hr IV ONCE PINEDA Stop: 05/23/22 23:59 Last Admin: 05/23/22 11:08 Dose: 200 mls/hr Ondansetron HCl (Zofran) 16 mg in 50 mls @ 200 mls/hr IV ONCE PINEDA Stop: 05/23/22 23:59 Last Admin: 05/23/22 11:08 Dose: 200 mls/hr Bevacizumab 335 mg/ Sodium (Chloride) 100 mls @ 200 mls/hr IV ONCE PINEDA Stop: 05/23/22 23:59 Irinotecan HCl 250 mg/ (Dextrose) 512.5 mls @ 341.667 mls/hr IV ONCE PINEDA Stop: 05/23/22 23:00 Home Medications Medication Instructions Recorded Confirmed Type loperamide 2 mg capsule 2 mg PO QID PRN Diarrhea 05/19/20 05/01/22 History Allergies Allergy/AdvReac Type Severity Reaction Status Date / Time prednisone [PREDNISONE] AdvReac Intermediate Psychosis Verified 02/07/22 09:08 Exam Vital signs: Vital Signs Temp 97.5 F 05/23/22 08:58 Pulse 74 05/23/22 08:58 Resp 17 05/23/22 08:58 BP 119/59 L 05/23/22 08:58 Pulse Ox 97 05/23/22 08:58 O2 Del Method 05/23/22 08:58 Intake & Output 05/22/22 05/23/22 05/23/22 18:59 06:59 18:59 Other: Weight 67 kg Weight in Grams 55192 Weight 67 kg BMI result Body Mass Index 20.6 - Constitutional Present: no acute distress - Routine HEENT Exam Head: Present: normal inspection - Routine Neck Exam Present: full ROM. Absent: lymphadenopathy - Routine Respiratory Exam Present: CTAB - Routine Cardiovascular Exam Cardiovascular: Present: RRR, S1, S2 - Routine Abdominal Exam Present: normal bowel sounds, soft. Absent: mass, organomegaly - Routine Extremities Exam Present: full ROM. Absent: calf tenderness, pedal edema - Routine Skin Exam Present: intact. Absent: cyanosis, erythema - Routine Neurological Exam Present: alert, oriented X3 Data - Labs CBC & Chem 7: 05/23/22 09:13 05/23/22 09:13 Assessment and Plan Patient Active problem list reviewed?: Yes (1) Colon cancer metastasized to liver Status: Chronic Assessment and plan: 1. This is a 61-year-old gentleman, with metastatic colon carcinoma, with liver and lung metastases. Biopsy of the liver lesion, Moderately differentiated adenocarcinoma. KRAS and BRAF negative. NRAS negative, MSI proficient or MSI stable. HER2 and panTRK negative. Initial CEA elevated at 91. He developed bowel obstruction, palliative bypass ileostomy has been performed in November 2018. He started on mFOLFOX/Avastin regimen from 11/27/2018. His last treatment cycle 13 was on 05/14/2019. He was on maintenance Xeloda 1500 mg p.o. b.i.d. 2 weeks on/1 week off, along with bevacizumab Q 3 weeks starting 10/22/2019 until 12/13/2020. Rising CEA as well as imaging in November 2020 showed evidence of progressive disease. He started irinotecan with bevacizumab from December 2020. 2. 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 He has been tapered off prednisone and CellCept. He is also off the oxygen. 3. Chronic arthralgias. He is on MSContin 30 mg b.i.d. he is on oxycodone 5 mg for breakthrough pain 2 to 3 times a day. 4. Intermittent elevation of bilirubin, indirect bilirubinemia, probable Gilbert's syndrome. Repeat CT abdomen/pelvis in February 2022 showed no significant progression of disease. He will be continued on the same medications. Bevacizumab is being resumed this week. Follow-up in 6 weeks. - Time Spent With Patient Time Spent with Patient (in minutes): 15
[2022-05-23] MEDS: diphenhydrAMINE HCL 25 MG TABLET PO (11:53)
[2022-05-23] MEDS: BEVACIZUMAB IV (12:21)
[2022-05-23] MEDS: SODIUM CHLORIDE 0.9% IV (12:21)
[2022-05-23] MEDS: Atropine Sulfate 1 MG/ML VIAL 0.5 MG SUBCUT (12:25)
[2022-05-23] MEDS: IRINOTECAN HCL IV (13:26)
[2022-05-23] MEDS: DEXTROSE 5% IV (13:26)
[2022-05-23] MEDS: oxyCODONE HCl Immed Release 5 MG TABLET PO (14:00)
[2022-05-23 15:00] VITALS: RESP 16
--- NOTE | 2022-05-23 15:27 | MHC.HEMONC ---
Pt here for C29D1 Avastin/Irinotecan and f/u Dr Mckee. Pt amb to tx room 3. Pt reoprts some intermittent nausea, neuropathy unchanged. Port to right chest accessed, good blood return. Labs drawn and results reviewed. urine obtained and results reviewed. Pre meds given: Tylenol po, benadryl po, dexamethasone IV, Pepcid IV, Zofran IV, Atropine SubQ. Ok to start Avastin per Dr Mckee. Was held due to dental extractions on 04/19/22. Avastin and Irinotecan infused as ordered. Pt toll well. Pt has forgotten to take his morphine this am. Oxycodone 5mg po ordered and given here. Pt reports pain went from 8 to 3/10. Port de-accessed with heparin. next treatment in 3 weeks, next follow up 6 weeks. D/C summary given.
--- NOTE | 2022-05-24 16:35 | MHC.HEMONC ---
Pt's , Selena, called, requested refill for PO Omeprazole [address] Daily[address] Nurse passed request to Dr. Mckee, called pt at home, no answer, updated pt, left CB#.
[2022-06-12 08:41] VITALS: BP 118/57; PULSE 85; RESP 18; TEMP 36.4; O2SAT 93; BMI 21.0
[2022-06-12 08:59] LABS: MANUAL DIFF FLAG NO
[2022-06-12 09:00] LABS: Basophils Percent Auto 0.6 % (0-2); Eosinophils Absolute Auto 0.2 X10*3/uL (0.0-0.4); Hematocrit 37.5 % (42.0-52.0); Imm Gran Abs Auto 0.02 X10*3/uL (0.00-0.03); Imm Gran Pct Auto 0.6 % (0.0-0.4); Lymphocytes Absolute Auto 1.1 X10*3/uL (1.2-4.9); Lymphocytes Percent Auto 33.9 % (20-40); Mean Corpuscular Hemoglobin 30.8 pg (27.0-33.0); Mean Corpuscular Volume 96.2 fL (80.0-98.0); Mean Platelet Volume 12.5 fL (9.4-12.4); Monocytes Absolute Auto 0.5 X10*3/uL (0.1-1.2); Monocytes Percent Auto 14.9 % (2-11); Neutrophils Absolute Auto 1.5 x10*3/uL (2.0-8.3); Platelet Count 136 X10*3/uL (160-400); Red Cell Distribution Width 16.5 % (11.0-16.0); White Blood Count 3.4 X10*3/uL (4.8-10.8)
[2022-06-12 09:28] LABS: Alanine Aminotransferase 30 U/L (0-40); Albumin Level 3.8 g/dL (3.5-5.0); Alkaline Phosphatase 87 U/L (39-117); Anion Gap 13 (12-20); Aspartate Amino Transferase 41 U/L (5-37); Bilirubin Total 1.4 mg/dL (0.0-1.0); Blood Urea Nitrogen 10 mg/dL (9-16); Calcium 9.1 mg/dL (8.4-10.2); Carbon Dioxide 25 mmol/L (22-29); Chloride 105 mmol/L (96-108); Creatinine Clr Calc Pharmacy 91.5; Estimated Glomerular Filt Rate > 60; Glucose Random 112 mg/dL (60-115); Potassium 4.3 mmol/L (3.3-5.1); Sodium 139 mmol/L (135-145); Total Protein 6.6 g/dL (6.5-8.0)
[2022-06-12 10:11] LABS: Appearance Urine Clear; Color Urine Yellow; Glucose Urine UA Negative (Negative); Leukocyte Esterase Urine Negative (Negative); Nitrite Urine Negative (Negative); PH 5.5 (5.0-9.0); Urine Blood Negative (Negative); Urine Ketones Negative (Negative); Urine Protein Negative (Neg-Trace)
[2022-06-12] MEDS: diphenhydrAMINE HCL 25 MG CAPSULE PO (10:41)
[2022-06-12] MEDS: Acetaminophen 325 MG TABLET 650 MG PO (10:41)
[2022-06-12] MEDS: Heparin Sodium,Porcine Flush 500 UNIT/5 ML SYRINGE IVFLUSH (10:42)
[2022-06-12] MEDS: dexAMETHasone sod phosphate/NS 12 MG/50 ML PIGGYBACK 200 MG IV (10:42)
[2022-06-12] MEDS: Famotidine/PF 20 MG/2 ML VIAL IVPUSH (10:42)
[2022-06-12] MEDS: SODIUM CHLORIDE 0.9% IV (12:05)
[2022-06-12] MEDS: BEVACIZUMAB IV (12:05)
[2022-06-12] MEDS: Atropine Sulfate 1 MG/ML VIAL 0.5 MG SUBCUT (12:06)
[2022-06-12] MEDS: DEXTROSE 5% IV (12:38)
[2022-06-12] MEDS: IRINOTECAN HCL IV (12:38)
--- NOTE | 2022-06-12 14:59 | MHC.HEMONC ---
C30- AVASTIN/IRINOTECAN- Port accessed without difficulty. Labs obtained and reviewed. Patient reports feeling well- no change in neuropathy. UA- unremarkable. VSS. Pre-medicated with Tylenol 650mg PO, Zofran 16mg IV, Dexamethasone 12mg IV. Pepcid 20mg IV and Atropine 0.5mg s/c to right upper arm prior to Irinotecan. Infusions well tolerated. Port de-accessed with Heparin. Discharge packet provided.
--- NOTE | 2022-06-13 11:32 | MHC.HEMONC ---
Called ptVladimir Brown with Pt's of Covid19 positive exposure while pt was in the clinic yesterday. Pt. opted to take a self test at home. Informed pt to notify clinic of test result.
--- NOTE | 2022-06-23 13:37 | MHC.HEMONC ---
Pt called to discuss Milind's appointments and working in a safe tooth extraction due to Avastin therapy. Per Dr Mckee pt needs to be off Avastin for one month prior and one month following extraction. He may still come in for chemo portion of treatment. Last Avastin was 06/12 so he cannot get booked for tooth extraction until early July. She will try to get appt scheduled at that time. Once we know that - we will make sure no additional Avastin is given for 30 days post procedure. I asked Selena to have Dentist fax clearance form with my attention.
--- NOTE | 2022-06-29 11:29 | MHC.HEMONC ---
Received call from pt's stating pt has infected tooth states pt is having tooth extracted on 07/17/22. States [place]'s dentist [place] and can not get script for antibiotic. Requesting antibiotic. Dr Mckee off today-Dr Friend covering. Notified Dr Friend-pt's requesting Augmentin
[2022-07-03 08:56] VITALS: BP 118/71; PULSE 113; RESP 18; TEMP 36.6; O2SAT 93; BMI 20.2
[2022-07-03 09:29] LABS: MANUAL DIFF FLAG NO
[2022-07-03 09:37] LABS: Basophils Percent Auto 0.6 % (0-2); Eosinophils Absolute Auto 0.2 X10*3/uL (0.0-0.4); Eosinophils Percent Auto 5.1 % (0-4); Hematocrit 40.3 % (42.0-52.0); Hemoglobin 12.9 g/dl (14.0-18.0); Imm Gran Abs Auto 0.01 X10*3/uL (0.00-0.03); Imm Gran Pct Auto 0.3 % (0.0-0.4); Lymphocytes Absolute Auto 0.9 X10*3/uL (1.2-4.9); Lymphocytes Percent Auto 27.3 % (20-40); Mean Corpuscular Volume 96.9 fL (80.0-98.0); Mean Platelet Volume 12.7 fL (9.4-12.4); Monocytes Absolute Auto 0.4 X10*3/uL (0.1-1.2); Monocytes Percent Auto 12.5 % (2-11); Neutrophils Absolute Auto 1.7 x10*3/uL (2.0-8.3); Neutrophils Percent Auto 54.2 % (45-73); Platelet Count 125 X10*3/uL (160-400); Red Blood Count 4.16 X10*6/uL (4.60-5.80); Red Cell Distribution Width 16.3 % (11.0-16.0); White Blood Count 3.1 X10*3/uL (4.8-10.8)
--- NOTE | 2022-07-03 10:11 | PM.HEMONCPN ---
Medical Summary - Medical Summary Date of Service: 07/03/22 Chief complaint: follow-up Medical Summary: Metastatic colon cancer diagnosed in October 2018. Presented with abdominal pain, 30 pound weight loss and severe pain. He had abnormal colonoscopy in 2009. He was told he needed a repeat colonoscopy in 5 years but he did not go for testing. CT abdomen/pelvis with IV contrast shows multiple areas of wall thickening in the sigmoid colon as well as thickening and enhancement of cecum, terminal ileum. Long segment of wall thickening of the distal transverse colon and left colon. Enlarged mesenteric and retroperitoneal lymph nodes, multiple liver metastasis and lung metastasis, all of these worrisome for metastatic colorectal malignancy. 11/01/18-Core biopsy of the right liver mass, moderately differentiated adenocarcinoma consistent with colorectal primary. KRAS mutation not detected BRAF mutation not detected. NRAS negative, MSI proficient or MSI stable. He developed bowel obstruction, palliative bypass ileostomy has been performed in November 2018. He started on mFOLFOX/Avastin regimen from 11/27/2018. His last treatment cycle 13 was on 05/14/2019. 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 Repeat CT abdomen/pelvis on 09/18/2019 showed further decrease in size of liver metastasis. He was on maintenance Xeloda 1500 mg p.o. b.i.d. 2 weeks on/1 week off, along with bevacizumab Q 3 weeks starting 10/22/2019 until 12/13/2020. Rising CEA as well as imaging in November 2020 showed evidence of progressive disease. He started irinotecan with bevacizumab from December 2020. Interval History Interval history: Patient is here in follow-up and scheduled treatment. He is eating better and has gained some weight. No other complaints such as fever, chills, nausea, cough, shortness of breath or change in bowel habits. He is scheduled for another dental extraction of July. Review of Systems - Constitutional Reports as per HPI, Reports no additional constitutional complaints, Denies fatigue, Denies night sweats, Denies poor appetite - Cardiovascular Reports no additional cardiovascular complaints - Respiratory Reports no additional respiratory complaints [facility] Medical History: Medical History (Last Reviewed 09/12/21 @ 09:45 by Sukh Patel RN) Chronic respiratory failure ILD (interstitial lung disease) Pulmonary fibrosis Pulmonary nodule Tubular adenoma Family History: Family History (Last Reviewed 09/12/21 @ 09:45 by Sukh Patel RN) Son Cystic fibrosis Brother Esophageal cancer Maternal Aunt Lung cancer Surgical History: Surgical History (Last Reviewed 09/12/21 @ 09:45 by Sukh Patel RN) H/O knee surgery Social History: Social History (Last Reviewed 09/12/21 @ 09:45 by Sukh Patel RN) Living Situation History: Household Members: Spouse Household Members: Children Substance Use History: Use of substances other than those prescribed or required for medical reasons: No Advance Directives: Advance Directives: Yes Advance Directives Information Provided: No Advance Directives on File: Yes Advance Directives Date on File: 10/31/18 Nutrition Assessment: Recently lost weight without trying: No Occupation Assessmet: service: No Current occupational status: employed Current occupation: [employer] Medications and Allergies Current Medications: Current Medications Acetaminophen (Acetaminophen 325 Mg Tablet) 650 mg PO ONCE PINEDA Stop: 07/03/22 23:59 Acetaminophen (Acetaminophen 325 Mg Tablet) 650 mg PO ONCE PINEDA Stop: 07/03/22 23:59 Atropine Sulfate (Atropine Sulfate 1 Mg/Ml Vial) 0.5 mg SUBCUT ONCE PINEDA Stop: 07/03/22 23:59 Diphenhydramine HCl (Diphenhydramine Hcl 25 Mg Tablet) 25 mg PO ONCE PINEDA Stop: 07/03/22 23:59 Famotidine (Famotidine/Pf 20 Mg/2 Ml Vial) 20 mg IVPUSH ONCE PINEDA Stop: 07/03/22 23:59 Heparin Sodium (Porcine) (Heparin Sodium,Porcine Flush 500 Unit/5 Ml Syringe) 500 unit IVFLUSH ONCE PINEDA Stop: 07/03/22 23:59 Dexamethasone Sodium Phosphate (Decadron) 12 mg in 50 mls @ 200 mls/hr IV ONCE PINEDA Stop: 07/03/22 23:59 Ondansetron HCl (Zofran) 16 mg in 50 mls @ 200 mls/hr IV ONCE PINEDA Stop: 07/03/22 23:59 Home Medications Medication Instructions Recorded Confirmed Type loperamide 2 mg capsule 2 mg PO QID PRN Diarrhea 05/19/20 05/01/22 History Allergies Allergy/AdvReac Type Severity Reaction Status Date / Time prednisone [PREDNISONE] AdvReac Intermediate Psychosis Verified 02/07/22 09:08 Exam Vital signs: Vital Signs Temp 97.9 F 07/03/22 08:56 Pulse 113 H 07/03/22 08:56 Resp 18 07/03/22 08:56 BP 118/71 07/03/22 08:56 Pulse Ox 93 07/03/22 08:56 O2 Del Method 07/03/22 08:56 Intake & Output 07/02/22 07/03/22 07/03/22 18:59 06:59 18:59 Other: Weight 65.9 kg [place] Weight in Grams 97920 Weight 65.9 kg BMI result Body Mass Index 20.2 - Constitutional Present: no acute distress - Routine HEENT Exam Head: Present: normal inspection - Routine Neck Exam Present: full ROM. Absent: lymphadenopathy - Routine Respiratory Exam Present: CTAB - Routine Cardiovascular Exam Cardiovascular: Present: RRR, S1, S2 - Routine Abdominal Exam Present: normal bowel sounds, soft. Absent: mass, organomegaly - Routine Extremities Exam Present: full ROM. Absent: calf tenderness, pedal edema - Routine Skin Exam Present: intact. Absent: cyanosis, erythema - Routine Neurological Exam Present: alert, oriented X3 Data - Labs CBC & Chem 7: 07/03/22 09:20 07/03/22 09:20 Assessment and Plan Patient Active problem list reviewed?: Yes (1) Colon cancer metastasized to liver Status: Chronic Assessment and plan: 1. This is a 61-year-old gentleman, with metastatic colon carcinoma, with liver and lung metastases. Biopsy of the liver lesion, Moderately differentiated adenocarcinoma. KRAS and BRAF negative. NRAS negative, MSI proficient or MSI stable. HER2 and panTRK negative. Initial CEA elevated at 91. He developed bowel obstruction, palliative bypass ileostomy has been performed in November 2018. He started on mFOLFOX/Avastin regimen from 11/27/2018. His last treatment cycle 13 was on 05/14/2019. He was on maintenance Xeloda 1500 mg p.o. b.i.d. 2 weeks on/1 week off, along with bevacizumab Q 3 weeks starting 10/22/2019 until 12/13/2020. Rising CEA as well as imaging in November 2020 showed evidence of progressive disease. He started irinotecan with bevacizumab from December 2020. 2. 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 He has been tapered off prednisone and CellCept. He is also off the oxygen. 3. Chronic arthralgias. He is on MSContin 30 mg b.i.d. he is on oxycodone 5 mg for breakthrough pain 2 to 3 times a day. 4. Intermittent elevation of bilirubin, indirect bilirubinemia, probable Gilbert's syndrome. Repeat CT abdomen/pelvis in February 2022 showed no significant progression of disease. He will be continued on the same medications. Bevacizumab is on hold, he has dental extractions for on 07/17/2022. CT chest/ abdomen and pelvis for surveillance and monitoring on therapy has been ordered. Follow-up in 6 weeks. - Time Spent With Patient Time Spent with Patient (in minutes): 10
[2022-07-03 10:13] LABS: Alanine Aminotransferase 27 U/L (0-40); Alkaline Phosphatase 82 U/L (39-117); Anion Gap 13 (12-20); Aspartate Amino Transferase 38 U/L (5-37); Bilirubin Total 1.8 mg/dL (0.0-1.0); Blood Urea Nitrogen 12 mg/dL (9-16); Calcium 9.3 mg/dL (8.4-10.2); Carbon Dioxide 23 mmol/L (22-29); Chloride 107 mmol/L (96-108); Creatinine Clr Calc Pharmacy 84.8; Estimated Glomerular Filt Rate > 60; Glucose Random 130 mg/dL (60-115); Potassium 4.1 mmol/L (3.3-5.1); Sodium 139 mmol/L (135-145); Total Protein 6.9 g/dL (6.5-8.0)
[2022-07-03] MEDS: Acetaminophen 325 MG TABLET 650 MG PO (10:59)
[2022-07-03] MEDS: diphenhydrAMINE HCL 25 MG TABLET PO (11:00)
[2022-07-03] MEDS: Famotidine/PF 20 MG/2 ML VIAL IVPUSH (11:00)
[2022-07-03] MEDS: Heparin Sodium,Porcine Flush 500 UNIT/5 ML SYRINGE IVFLUSH (11:07)
[2022-07-03] MEDS: Atropine Sulfate 1 MG/ML VIAL 0.5 MG SUBCUT (11:19)
[2022-07-03] MEDS: dexAMETHasone sod phosphate/NS 12 MG/50 ML PIGGYBACK 200 MG IV (11:47)
[2022-07-03] MEDS: IRINOTECAN HCL IV (12:16)
[2022-07-03] MEDS: DEXTROSE 5% IV (12:16)
--- NOTE | 2022-07-03 15:13 | MHC.HEMONC ---
C13D1: IRINOTECAN- AVASTIN ON HOLD. Patient has tooth extraction 07/17/22. Port accessed without difficulty- labs obtained and reviewed. VSS. Pre-medicated with Tylenol 650mg PO, Dexamethasone 12mg IV, Zofran 16mg IV, Benadryl 25mg PO, and Pepcid 20mg IV. Atropine 0.5mg s/c administered to right upper arm. Exam with Dr. Mckee today. CT scans ordered and given to Olinda to place in order wrapper operator. Refill for Morphine complete. Call placed to [facility] to fax clearance letter for treatment to our department. I also called Selena who will call dental office. Irinotecan infused. Port de-accessed. Chemo discharge packet provided. Avastin to be held 07/26 and can resume 08/15/[address] Mckee.
--- NOTE | 2022-07-04 09:42 | MHC.HEMONCMA ---
entered in OF ct abdomen/pelvis and chest
[2022-07-26 08:53] VITALS: BP 109/62; PULSE 82; RESP 18; TEMP 36.5; O2SAT 96; BMI 20.7
[2022-07-26 09:43] LABS: MANUAL DIFF FLAG NO
[2022-07-26 09:47] LABS: Basophils Percent Auto 0.5 % (0-2); Eosinophils Absolute Auto 0.2 X10*3/uL (0.0-0.4); Eosinophils Percent Auto 4.6 % (0-4); Hematocrit 35.5 % (42.0-52.0); Hemoglobin 11.9 g/dl (14.0-18.0); Imm Gran Abs Auto 0.02 X10*3/uL (0.00-0.03); Imm Gran Pct Auto 0.5 % (0.0-0.4); Lymphocytes Absolute Auto 0.6 X10*3/uL (1.2-4.9); Lymphocytes Percent Auto 15.6 % (20-40); Mean Corpuscular HGB Conc 33.5 g/dl (31.0-36.0); Mean Corpuscular Volume 95.4 fL (80.0-98.0); Monocytes Absolute Auto 0.5 X10*3/uL (0.1-1.2); Neutrophils Absolute Auto 2.7 x10*3/uL (2.0-8.3); Neutrophils Percent Auto 66.8 % (45-73); Platelet Count 129 X10*3/uL (160-400); Red Blood Count 3.72 X10*6/uL (4.60-5.80); Red Cell Distribution Width 16.6 % (11.0-16.0); White Blood Count 4.1 X10*3/uL (4.8-10.8)
[2022-07-26 10:18] LABS: Alanine Aminotransferase 25 U/L (0-40); Albumin Level 3.6 g/dL (3.5-5.0); Alkaline Phosphatase 82 U/L (39-117); Anion Gap 10 (12-20); Aspartate Amino Transferase 38 U/L (5-37); Blood Urea Nitrogen 13 mg/dL (9-16); Carbon Dioxide 25 mmol/L (22-29); Chloride 107 mmol/L (96-108); Creatinine Clr Calc Pharmacy 103.4; Estimated Glomerular Filt Rate > 60; Glucose Random 115 mg/dL (60-115); Potassium 4.6 mmol/L (3.3-5.1); Sodium 137 mmol/L (135-145)
[2022-07-26] MEDS: diphenhydrAMINE HCL 25 MG TABLET PO (10:31)
[2022-07-26] MEDS: Acetaminophen 325 MG TABLET 650 MG PO (10:31)
[2022-07-26] MEDS: Famotidine/PF 20 MG/2 ML VIAL IVPUSH (10:32)
[2022-07-26] MEDS: dexAMETHasone sod phosphate/NS 12 MG/50 ML PIGGYBACK 200 MG IV (10:32)
[2022-07-26] MEDS: Heparin Sodium,Porcine Flush 500 UNIT/5 ML SYRINGE IVFLUSH (10:33)
[2022-07-26] MEDS: Atropine Sulfate 1 MG/ML VIAL 0.5 MG SUBCUT (11:08)
--- NOTE | 2022-07-26 11:25 | PM.HEMONCPN ---
Medical Summary - Medical Summary Date of Service: 07/26/22 Chief complaint: Follow-up and scheduled treatment Medical Summary: Metastatic colon cancer diagnosed in October 2018. Presented with abdominal pain, 30 pound weight loss and severe pain. He had abnormal colonoscopy in 2009. He was told he needed a repeat colonoscopy in 5 years but he did not go for testing. CT abdomen/pelvis with IV contrast shows multiple areas of wall thickening in the sigmoid colon as well as thickening and enhancement of cecum, terminal ileum. Long segment of wall thickening of the distal transverse colon and left colon. Enlarged mesenteric and retroperitoneal lymph nodes, multiple liver metastasis and lung metastasis, all of these worrisome for metastatic colorectal malignancy. 11/01/18-Core biopsy of the right liver mass, moderately differentiated adenocarcinoma consistent with colorectal primary. KRAS mutation not detected BRAF mutation not detected. NRAS negative, MSI proficient or MSI stable. He developed bowel obstruction, palliative bypass ileostomy has been performed in November 2018. He started on mFOLFOX/Avastin regimen from 11/27/2018. His last treatment cycle 13 was on 05/14/2019. 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 Repeat CT abdomen/pelvis on 09/18/2019 showed further decrease in size of liver metastasis. He was on maintenance Xeloda 1500 mg p.o. b.i.d. 2 weeks on/1 week off, along with bevacizumab Q 3 weeks starting 10/22/2019 until 12/13/2020. Rising CEA as well as imaging in November 2020 showed evidence of progressive disease. He started irinotecan with bevacizumab from December 2020. Interval History Interval history: Patient is here in follow-up and scheduled treatment. He is doing okay but reports some pain in his right lower back especially when he walks. He is requesting refill on his narcotic pain medication. He has been smoking marijuana but he decided to stop because it makes him cough a lot. He denies any fever or chills. No shortness of breath. No nausea or emesis. He has had all dental work completed, multiple teeth extractions have been done. Review of Systems - Constitutional Reports as per HPI, Reports no additional constitutional complaints - Cardiovascular Reports no additional cardiovascular complaints - Respiratory Reports no additional respiratory complaints [facility] Medical History: Medical History (Last Reviewed 07/26/22 @ 10:38 by Sukh Patel RN) Chronic respiratory failure ILD (interstitial lung disease) Pulmonary fibrosis Pulmonary nodule Tubular adenoma Family History: Family History (Last Reviewed 07/26/22 @ 10:38 by Sukh Patel RN) Son Cystic fibrosis Brother Esophageal cancer Maternal Aunt Lung cancer Surgical History: Surgical History (Last Reviewed 07/26/22 @ 10:38 by Sukh Patel RN) H/O knee surgery Social History: Social History (Last Reviewed 07/26/22 @ 10:38 by Sukh Patel RN) Living Situation History: Household Members: Spouse Household Members: Children Substance Use History: Use of substances other than those prescribed or required for medical reasons: No Advance Directives: Advance Directives: Yes Advance Directives Information Provided: No Advance Directives on File: Yes Advance Directives Date on File: 10/31/18 Nutrition Assessment: Recently lost weight without trying: No Occupation Assessmet: service: No Current occupational status: employed Current occupation: [email or web address] Oncology 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 Performance Status ECOG Performance Status: 1 Home Medications and Allergies Current Medications: Current Medications Acetaminophen (Acetaminophen 325 Mg Tablet) 650 mg PO ONCE PINEDA Stop: 07/26/22 23:59 Last Admin: 07/26/22 10:31 Dose: 650 mg Acetaminophen (Acetaminophen 325 Mg Tablet) 650 mg PO ONCE PINEDA Stop: 07/26/22 23:59 Atropine Sulfate (Atropine Sulfate 1 Mg/Ml Vial) 0.5 mg SUBCUT ONCE PINEDA Stop: 07/26/22 23:59 Last Admin: 07/26/22 11:08 Dose: 0.5 mg Diphenhydramine HCl (Diphenhydramine Hcl 25 Mg Tablet) 25 mg PO ONCE PINEDA Stop: 07/26/22 23:59 Last Admin: 07/26/22 10:31 Dose: 25 mg Famotidine (Famotidine/Pf 20 Mg/2 Ml Vial) 20 mg IVPUSH ONCE PINEDA Stop: 07/26/22 23:59 Last Admin: 07/26/22 10:32 Dose: 20 mg Heparin Sodium (Porcine) (Heparin Sodium,Porcine Flush 500 Unit/5 Ml Syringe) 500 unit IVFLUSH ONCE PINEDA Stop: 07/26/22 23:59 Last Admin: 07/26/22 10:33 Dose: 500 unit Dexamethasone Sodium Phosphate (Decadron) 12 mg in 50 mls @ 200 mls/hr IV ONCE PINEDA Stop: 07/26/22 23:59 Last Infusion: 07/26/22 11:11 Dose: Infused Ondansetron HCl (Zofran) 16 mg in 50 mls @ 200 mls/hr IV ONCE PINEDA Stop: 07/26/22 23:59 Last Infusion: 07/26/22 11:11 Dose: Infused Irinotecan HCl 200 mg/ (Irinotecan HCl 50 mg/ Dextrose) 512.5 mls @ 341.667 mls/hr IV ONCE PINEDA Stop: 07/26/22 23:59 Home Medications Medication Instructions Recorded Confirmed Type loperamide 2 mg capsule 2 mg PO QID PRN Diarrhea 05/19/20 07/26/22 History Allergies Allergy/AdvReac Type Severity Reaction Status Date / Time prednisone [PREDNISONE] AdvReac Intermediate Psychosis Verified 07/26/22 10:39 Exam Vital signs: Vital Signs Temp 97.7 F 07/26/22 08:53 Pulse 82 07/26/22 08:53 Resp 18 07/26/22 08:53 BP 109/62 07/26/22 08:53 Pulse Ox 96 07/26/22 08:53 O2 Del Method 07/26/22 08:53 Intake & Output 07/25/22 07/26/22 07/26/22 18:59 06:59 18:59 Intake Total 100 / 100 Balance 100 / 100 Intake: Intake, IV Amount 100 / 100 Ondansetron HCL/NS 16 mg In 50 50 / 50 ml @ 200 mls/hr IV ONCE PINEDA Rx# :[id number] dexAMETHasone sod phosphate/NS 50 / 50 12 mg In 50 ml @ 200 mls/hr IV ONCE PINEDA Rx#:[id number] Other: Weight 67.6 kg [place] Weight in Grams [id number] Weight 67.6 kg BMI result Body Mass Index 20.7 - Constitutional Present: no acute distress - Routine HEENT Exam Head: Present: normal inspection - Routine Neck Exam Present: full ROM. Absent: lymphadenopathy - Routine Respiratory Exam Present: CTAB - Routine Cardiovascular Exam Cardiovascular: Present: RRR, S1, S2 - Routine Abdominal Exam Present: normal bowel sounds, soft. Absent: mass, organomegaly - Routine Extremities Exam Present: full ROM. Absent: calf tenderness, pedal edema - Routine Skin Exam Present: intact. Absent: cyanosis, erythema - Routine Neurological Exam Present: alert, oriented X3 Data - Labs CBC & Chem 7: 07/26/22 09:25 07/26/22 09:25 Assessment and Plan Patient Active problem list reviewed?: Yes (1) Colon cancer metastasized to liver Status: Chronic Assessment and plan: 1. This is a 62-year-old gentleman, with metastatic colon carcinoma, with liver and lung metastases. Biopsy of the liver lesion, Moderately differentiated adenocarcinoma. KRAS and BRAF negative. NRAS negative, MSI proficient or MSI stable. HER2 and panTRK negative. Initial CEA elevated at 91. He developed bowel obstruction, palliative bypass ileostomy has been performed in November 2018. He started on mFOLFOX/Avastin regimen from 11/27/2018. His last treatment cycle 13 was on 05/14/2019. He was on maintenance Xeloda 1500 mg p.o. b.i.d. 2 weeks on/1 week off, along with bevacizumab Q 3 weeks starting 10/22/2019 until 12/13/2020. Rising CEA as well as imaging in November 2020 showed evidence of progressive disease. He started irinotecan with bevacizumab from December 2020. 2. 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 He has been tapered off prednisone and CellCept. He is also off the oxygen. 3. Chronic arthralgias. He is on MSContin 30 mg b.i.d. He is on oxycodone 5 mg for breakthrough pain 2 to 3 times a day. He has right-sided low back pain, probably muscular. 4. Intermittent elevation of bilirubin, indirect bilirubinemia, probable Gilbert's syndrome. CT chest/ abdomen and pelvis in July shows progression in lung nodules. His CEA level is also rising. I will change treatment to FOLFIRI Avastin. I discussed this with patient, he is agreeable. Follow-up in 6 weeks. - Time Spent With Patient Time Spent with Patient (in minutes): 25
[2022-07-26] MEDS: DEXTROSE 5% IV (11:49)
[2022-07-26] MEDS: IRINOTECAN HCL IV (11:49)
--- NOTE | 2022-07-26 15:08 | HO.HEMONCPA ---
NO PA REQUIRED FOR EMEND, NEULASTA INJ OR ONPRO, IRINOTECAN,LEUCOVORIN,FLUOROURACIL, & BEVACIZUMAB. DRUGS COVERED UNDER MEDICARE PART B BENEFITS.
--- NOTE | 2022-07-26 15:20 | MHC.HEMONC ---
Pt was in for C32 Irinotecan, plus Onc f/u appt, nurse verified pt requires no PA for Irinotecan, pt reports he had multiple upper teeth pulled on 07/17, so Dr. Mckee is holding the Bevacizumab today. Pt says he now has no upper teeth remaining, will be getting some dentures eventually. Pt reports he feels well overall, has occasional nausea, bilat neuropathy of his fingers. Pt's VSS, weight stable. Nurse accessed pt's R chest port, flushed w/ NS, found positive blood return, collected blood labs via port, placed add-on order for CEA, per Dr. Mckee. Nurse admin pre-meds: PO Tylenol, PO Benadryl, IV Pepcid, IV Dexamethasone, IV Zofran, and SC Atropine 30 min prior to starting Iriontecan. Nurse admin Irinotecan over 90 minutes. Pt's port was flushed w/ NS, blood return still, then flushed w/ heparin 500 units, then de-accessed. Dr. Mckee was in to meet w/ pt, pt was told his disease has progression. Nurse noted CEA has worsened from 10.[address] Mckee told pt his tx plan will be changing back to Bevacizumab w/ FOLFIRI, and he will return to [address] Mckee put in new tx plan, nurse printed copy for [employer]rent[employer] Marsha to request PA for Bevacizumab/FOLFIRI. Nurse booked pt's C1D1 for 08/08/22, as well as chemo-teach on same morning, nurse to confirm PA before starting C1D1, also pt will need to sign consent for tx. Pt was given d/c packet.
--- NOTE | 2022-08-04 11:28 | MHC.HEMONC ---
Pt , Selena called to report that pt has had fevers 100.5-101.2 last two days. He did home Covid test yesterday and it was negative. He received chemo 10 days ago. He is on antibiotics s/p tooth extraction early in month which she states is healing per MD.He has no other c/o. I told Dr Mckee and she suggests ER for fever w/u. I told Selena and she will discuss with Milind. I explained importance of checking blood and initiating treatment and told her Dr Mckee will call ER prior to them coming. Selena will call me back.
--- NOTE | 2022-08-08 08:59 | MHC.HEMONC ---
Chemotherapy has been rescheduled to 08/15/22- patient is positive for influenza with symptoms of coughing, weakness, and fatigue. Dr. Mckee and chemo pharmacist notified. Selena notified over phone.
[2022-08-15 08:24] VITALS: BP 127/58; PULSE 77; RESP 14; TEMP 36.6; O2SAT 94; BMI 19.7
[2022-08-15 08:45] LABS: MANUAL DIFF FLAG NO
[2022-08-15 08:46] LABS: Basophils Percent Auto 0.6 % (0-2); Eosinophils Absolute Auto 0.1 X10*3/uL (0.0-0.4); Eosinophils Percent Auto 3.8 % (0-4); Hematocrit 34.2 % (42.0-52.0); Hemoglobin 11.2 g/dl (14.0-18.0); Imm Gran Abs Auto 0.04 X10*3/uL (0.00-0.03); Imm Gran Pct Auto 1.2 % (0.0-0.4); Lymphocytes Absolute Auto 1.1 X10*3/uL (1.2-4.9); Lymphocytes Percent Auto 31.5 % (20-40); Mean Corpuscular HGB Conc 32.7 g/dl (31.0-36.0); Mean Corpuscular Hemoglobin 31.1 pg (27.0-33.0); Mean Platelet Volume 11.9 fL (9.4-12.4); Monocytes Absolute Auto 0.7 X10*3/uL (0.1-1.2); Monocytes Percent Auto 19.5 % (2-11); Neutrophils Absolute Auto 1.5 x10*3/uL (2.0-8.3); Neutrophils Percent Auto 43.4 % (45-73); Platelet Count 215 X10*3/uL (160-400); Red Cell Distribution Width 15.4 % (11.0-16.0); White Blood Count 3.4 X10*3/uL (4.8-10.8)
[2022-08-15 09:02] LABS: Appearance Urine Clear; Color Urine Yellow; Glucose Urine UA Negative (Negative); Leukocyte Esterase Urine Negative (Negative); Nitrite Urine Negative (Negative); Specific Gravity - Urine 1.015 (1.005-1.025); Urine Blood Negative (Negative); Urine Ketones Negative (Negative); Urine Protein Negative (Neg-Trace)
[2022-08-15 09:10] LABS: Alanine Aminotransferase 21 U/L (0-40); Albumin Level 3.5 g/dL (3.5-5.0); Alkaline Phosphatase 96 U/L (39-117); Anion Gap 11 (12-20); Aspartate Amino Transferase 31 U/L (5-37); Bilirubin Total 1.1 mg/dL (0.0-1.0); Blood Urea Nitrogen 10 mg/dL (9-16); Carbon Dioxide 23 mmol/L (22-29); Chloride 106 mmol/L (96-108); Creatinine Clr Calc Pharmacy 90.3; Estimated Glomerular Filt Rate > 60; Glucose Random 157 mg/dL (60-115); Potassium 4.3 mmol/L (3.3-5.1); Sodium 136 mmol/L (135-145); Total Protein 6.3 g/dL (6.5-8.0)
[2022-08-15] MEDS: Fosaprepitant Dimeglumine 150 MG in 0.9 % Sodium Chloride 145 ML 300 MG IV (10:00)
[2022-08-15] MEDS: Acetaminophen 325 MG TABLET 650 MG PO (10:18)
[2022-08-15] MEDS: diphenhydrAMINE HCL 25 MG CAPSULE PO (10:18)
[2022-08-15] MEDS: dexAMETHasone sod phosphate/NS 12 MG/50 ML PIGGYBACK 200 MG IV (10:22)
[2022-08-15] MEDS: Atropine Sulfate 1 MG/ML VIAL 0.5 MG SUBCUT (11:27)
[2022-08-15] MEDS: SODIUM CHLORIDE 0.9% IV ×2 (11:35→14:29)
[2022-08-15] MEDS: BEVACIZUMAB IV (11:35)
[2022-08-15] MEDS: LEUCOVORIN CALCIUM IV (12:15)
[2022-08-15] MEDS: DEXTROSE 5% IV ×2 (12:15→12:16)
[2022-08-15] MEDS: IRINOTECAN HCL IV (12:16)
[2022-08-15] MEDS: FLUOROURACIL 138 MG IVPUSH (14:28)
[2022-08-15] MEDS: FLUOROURACIL IV (14:29)
--- NOTE | 2022-08-15 17:32 | MHC.HEMONC ---
Pt was in today for C1D1 Bevacizumab/FOLFIRI new-start,nurse confirmed pt needs no PA for these meds, nor for Emend or Neulasta. Pt's tx today had been delayed 1 week as pt was d/c'd from [facility] for influenza infection a week ago, today says he is still very fatigued, also had a lot of weight loss, lost 3.8 kg in less than 2 weeks. VSS. Pt reports he is currently eating again, but not much. Dr. Friend was updated. Pt's R chest implanted port was accessed, flushed w/ NS, had positive blood return, labs were collected, as well as UA. Nurse performed chemo teach to review Fluorouracil and Leucovorin, as pt was already receiving Bevacizumab and Irinotecan on previous regimen. Pt and Dr. Friend both signed consent for chemo tx, which nurse left for scanning into EMR. Nurse also provided pt w/ chemo home spill kit, and had Dr. Friend send scrip to pt's [facility] for PO Dex 4mg PO BID on D2-D3. Nurse admin pt's pre-meds: PO Tylenol, PO Benadryl, IV Emend, IV Dexamethasone, IV Zofran, and SC Atropine 30 min prior to initiation of Irinotecan. Pt was admin Bevacizumab over 30 minutes, and received FOLFIRI, tolerated all-meds well. Nurse admin 5FU bolus over 5 minutes and initiated 46 hr take-home 5FU infusion via CADD pump, and gave pt tutorial on pump's use. Pt was given d/c packet, to return on , 08/17/22 for take-down, then to return 08/28/22 for C2D1.
[2022-08-17] MEDS: Heparin Sodium,Porcine Flush 500 UNIT/5 ML SYRINGE IVFLUSH (12:59)
--- NOTE | 2022-08-17 14:12 | MHC.HEMONC ---
Port flushed with heparin and de accessed. Pt has next appointment scheduled-declines discharge packet
[2022-08-28 08:01] VITALS: BP 91/61; PULSE 80; RESP 18; TEMP 36.2; O2SAT 97
[2022-08-28 08:39] LABS: Basophils Percent Auto 0.4 % (0-2); Eosinophils Absolute Auto 0.1 X10*3/uL (0.0-0.4); Eosinophils Percent Auto 4.1 % (0-4); Hematocrit 32.7 % (42.0-52.0); Hemoglobin 10.4 g/dl (14.0-18.0); Lymphocytes Absolute Auto 0.7 X10*3/uL (1.2-4.9); MANUAL DIFF FLAG SCAN; Mean Corpuscular HGB Conc 31.8 g/dl (31.0-36.0); Mean Corpuscular Hemoglobin 30.9 pg (27.0-33.0); Monocytes Absolute Auto 0.2 X10*3/uL (0.1-1.2); Monocytes Percent Auto 7.5 % (2-11); Neutrophils Absolute Auto 1.4 x10*3/uL (2.0-8.3); Red Blood Count 3.37 X10*6/uL (4.60-5.80); Red Cell Distribution Width 17.2 % (11.0-16.0); SCAN SMEAR FLAG 1
[2022-08-28 08:41] LABS: Appearance Urine Clear; Color Urine Yellow; Glucose Urine UA Negative (Negative); Leukocyte Esterase Urine Negative (Negative); Nitrite Urine Negative (Negative); Specific Gravity - Urine 1.025 (1.005-1.025); Urine Blood Negative (Negative); Urine Ketones Trace mg/dL (Negative); Urine Protein Negative (Neg-Trace)
[2022-08-28 08:49] LABS: Platelet Count 93 X10*3/uL (160-400); White Blood Count 2.4 X10*3/uL (4.8-10.8)
[2022-08-28 08:54] LABS: Alanine Aminotransferase 45 U/L (0-40); Albumin Level 3.2 g/dL (3.5-5.0); Alkaline Phosphatase 85 U/L (39-117); Anion Gap 11 (12-20); Aspartate Amino Transferase 42 U/L (5-37); Blood Urea Nitrogen 15 mg/dL (9-16); Calcium 8.6 mg/dL (8.4-10.2); Carbon Dioxide 24 mmol/L (22-29); Chloride 109 mmol/L (96-108); Creatinine Clr Calc Pharmacy 89.5; Estimated Glomerular Filt Rate > 60; Glucose Random 111 mg/dL (60-115); Sodium 140 mmol/L (135-145); Total Protein 5.6 g/dL (6.5-8.0)
[2022-08-28 09:36] LABS: SLIDE REVIEW VERIFIED
[2022-08-28] MEDS: Acetaminophen 325 MG TABLET 650 MG PO (10:02)
[2022-08-28] MEDS: diphenhydrAMINE HCL 25 MG CAPSULE PO (10:03)
[2022-08-28] MEDS: dexAMETHasone sod phosphate/NS 12 MG/50 ML PIGGYBACK 200 MG IV (10:04)
[2022-08-28] MEDS: Atropine Sulfate 1 MG/ML VIAL 0.5 MG SUBCUT (10:05)
[2022-08-28] MEDS: Fosaprepitant Dimeglumine 150 MG in 0.9 % Sodium Chloride 145 ML 300 MG IV (10:38)
--- NOTE | 2022-08-28 11:40 | MHC.HEMONC ---
Faxed rx and supporting information to [facility] for Boost Plus or alternative per Dr Mckee.
[2022-08-28] MEDS: BEVACIZUMAB IV (12:04)
[2022-08-28] MEDS: SODIUM CHLORIDE 0.9% IV ×2 (12:04→14:41)
--- NOTE | 2022-08-28 12:32 | PM.HEMONCPN ---
Medical Summary - Medical Summary Date of Service: 08/28/22 Chief complaint: Follow-up Medical Summary: Metastatic colon cancer diagnosed in October 2018. Presented with abdominal pain, 30 pound weight loss and severe pain. He had abnormal colonoscopy in 2009. He was told he needed a repeat colonoscopy in 5 years but he did not go for testing. CT abdomen/pelvis with IV contrast shows multiple areas of wall thickening in the sigmoid colon as well as thickening and enhancement of cecum, terminal ileum. Long segment of wall thickening of the distal transverse colon and left colon. Enlarged mesenteric and retroperitoneal lymph nodes, multiple liver metastasis and lung metastasis, all of these worrisome for metastatic colorectal malignancy. 11/01/18-Core biopsy of the right liver mass, moderately differentiated adenocarcinoma consistent with colorectal primary. KRAS mutation not detected BRAF mutation not detected. NRAS negative, MSI proficient or MSI stable. He developed bowel obstruction, palliative bypass ileostomy has been performed in November 2018. He started on mFOLFOX/Avastin regimen from 11/27/2018. His last treatment cycle 13 was on 05/14/2019. 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 Repeat CT abdomen/pelvis on 09/18/2019 showed further decrease in size of liver metastasis. He was on maintenance Xeloda 1500 mg p.o. b.i.d. 2 weeks on/1 week off, along with bevacizumab Q 3 weeks starting 10/22/2019 until 12/13/2020. Rising CEA as well as imaging in November 2020 showed evidence of progressive disease. He started irinotecan with bevacizumab from December 2020. Interval History Interval history: Patient is here in follow-up and scheduled treatment. He has been doing better this week. He is eating better and he stopped losing weight. He denies nausea or emesis. No significant diarrhea and denies abdominal discomfort. No fever or chills. Review of Systems - Constitutional Reports as per HPI, Denies anorexia, Denies fatigue, Denies fever(s), Denies lack of energy, Denies malaise - Cardiovascular Reports no additional cardiovascular complaints - Respiratory Reports no additional respiratory complaints [facility] Medical History: Medical History (Last Updated 08/28/22 @ 09:09 by Sheree Mckee MD) Chronic respiratory failure Colon cancer metastasized to liver Colon cancer metastasized to liver ILD (interstitial lung disease) Pulmonary fibrosis Pulmonary nodule Tubular adenoma Family History: Family History (Last Reviewed 08/04/22 @ 20:56 by SANDRO Rob) Son Cystic fibrosis Brother Esophageal cancer Maternal Aunt Lung cancer Surgical History: Surgical History (Last Reviewed 08/04/22 @ 20:56 by SANDRO Rob) H/O knee surgery Social History: Social History (Last Reviewed 08/04/22 @ 20:56 by SANDRO Rob) Living Situation History: Household Members: Spouse Household Members: Children Substance Use History: Use of substances other than those prescribed or required for medical reasons: No Advance Directives: Advance Directives: Yes Advance Directives Information Provided: No Advance Directives on File: Yes Advance Directives Date on File: 10/25/21 Nutrition Assessment: Recently lost weight without trying: No Occupation Assessmet: service: No Current occupational status: employed Current occupation: [employer] Oncology 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 Performance Status ECOG Performance Status: 1 Home Medications and Allergies Current Medications: Current Medications Acetaminophen (Acetaminophen 325 Mg Tablet) 650 mg PO ONCE PINEDA Stop: 08/28/22 23:59 Last Admin: 08/28/22 10:02 Dose: 650 mg Atropine Sulfate (Atropine Sulfate 1 Mg/Ml Vial) 0.5 mg SUBCUT ONCE PINEDA Stop: 08/28/22 23:59 Last Admin: 08/28/22 10:05 Dose: 0.5 mg Diphenhydramine HCl (Diphenhydramine Hcl 25 Mg Capsule) 25 mg PO ONCE PINEDA Stop: 08/28/22 23:59 Last Admin: 08/28/22 10:03 Dose: 25 mg Dexamethasone Sodium Phosphate (Decadron) 12 mg in 50 mls @ 200 mls/hr IV ONCE PINEDA Stop: 08/28/22 23:59 Last Infusion: 08/28/22 10:19 Dose: Infused Ondansetron HCl (Zofran) 16 mg in 50 mls @ 200 mls/hr IV ONCE PINEDA Stop: 08/28/22 23:59 Last Infusion: 08/28/22 10:19 Dose: Infused Fosaprepitant 150 mg/ Sodium (Chloride) 150 mls @ 300 mls/hr IV ONCE PINEDA Stop: 08/28/22 23:59 Last Infusion: 08/28/22 11:08 Dose: Infused Bevacizumab 320 mg/ Sodium (Chloride) 100 mls @ 200 mls/hr IV ONCE PINEDA Stop: 08/28/22 23:59 Last Admin: 08/28/22 12:04 Dose: 200 mls/hr Irinotecan HCl 260 mg/ (Dextrose) 513 mls @ 342 mls/hr IV ONCE PINEDA Stop: 08/28/22 23:00 Leucovorin Calcium 570 mg/ (Dextrose) 278.5 mls @ 185.667 mls/hr IV ONCE PINEDA Stop: 08/28/22 23:59 Home Medications Medication Instructions Recorded Confirmed Type loperamide 2 mg capsule 2 mg PO BID PRN Diarrhea 05/19/20 08/28/22 History acetaminophen 650 mg 650 mg PO Q6H PRN Pain 08/04/22 08/28/22 History tablet,extended release omeprazole 40 mg capsule,delayed 40 mg PO DAILY@0630 08/04/22 08/28/22 History release Allergies Allergy/AdvReac Type Severity Reaction Status Date / Time prednisone [PREDNISONE] AdvReac Intermediate Psychosis Verified 08/28/22 08:37 Exam Vital signs: Vital Signs Temp 97.2 F 08/28/22 08:01 Pulse 80 08/28/22 08:01 Resp 18 08/28/22 08:01 BP 91/61 08/28/22 08:01 Pulse Ox 97 08/28/22 08:01 O2 Del Method 08/28/22 08:01 Intake & Output 08/27/22 08/28/22 08/28/22 18:59 06:59 18:59 Intake Total 250 / 250 Balance 250 / 250 Intake: Intake, IV Amount 250 / 250 Fosaprepitant Dimeglumine 150 150 / 150 mg In 0.9 % Sodium Chloride 145 ml @ 300 mls/hr IV ONCE PINEDA Rx #:[id number] Ondansetron HCL/NS 16 mg In 50 50 / 50 ml @ 200 mls/hr IV ONCE PINEDA Rx# :[id number] dexAMETHasone sod phosphate/NS 50 / 50 12 mg In 50 ml @ 200 mls/hr IV ONCE PINEDA Rx#:[id number] Other: Weight 65.3 kg Weight in Grams 87240 Weight 65.3 kg BMI result Body Mass Index 20.0 - Constitutional Present: no acute distress - Routine HEENT Exam Head: Present: normal inspection - Routine Neck Exam Present: full ROM. Absent: lymphadenopathy - Routine Respiratory Exam Present: CTAB - Routine Cardiovascular Exam Cardiovascular: Present: RRR, S1, S2 - Routine Abdominal Exam Present: normal bowel sounds, soft. Absent: mass, organomegaly - Routine Extremities Exam Present: full ROM. Absent: calf tenderness, pedal edema - Routine Skin Exam Present: intact. Absent: cyanosis, erythema - Routine Neurological Exam Present: alert, oriented X3 Data - Labs CBC & Chem 7: 08/28/22 08:20 08/28/22 08:20 Assessment and Plan Patient Active problem list reviewed?: Yes (1) Colon cancer metastasized to liver Status: Inactive Assessment and plan: 1. This is a 62-year-old gentleman, with metastatic colon carcinoma, with liver and lung metastases. Biopsy of the liver lesion, Moderately differentiated adenocarcinoma. KRAS and BRAF negative. NRAS negative, MSI proficient or MSI stable. HER2 and panTRK negative. Initial CEA elevated at 91. He developed bowel obstruction, palliative bypass ileostomy has been performed in November 2018. He started on mFOLFOX/Avastin regimen from 11/27/2018. His last treatment cycle 13 was on 05/14/2019. He was on maintenance Xeloda 1500 mg p.o. b.i.d. 2 weeks on/1 week off, along with bevacizumab Q 3 weeks starting 10/22/2019 until 12/13/2020. Rising CEA as well as imaging in November 2020 showed evidence of progressive disease. He started irinotecan with bevacizumab from December 2020 until 07/2022. CT chest/ abdomen and pelvis in July 2022 showed progression in lung nodules. CEA penelope to 18.8 NG/mL. Treatment was changed to FOLFIRI Avastin. CEA today is 12.30. 2. 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 He has been tapered off prednisone and CellCept. He is also off the oxygen. 3. Chronic arthralgias. He is on MSContin 30 mg b.i.d. He is on oxycodone 5 mg for breakthrough pain 2 to 3 times a day. He has right-sided low back pain, probably muscular. 4. Intermittent elevation of bilirubin, indirect bilirubinemia, probable Gilbert's syndrome. He has developed leukopenia and thrombocytopenia secondary to ongoing treatment. Neulasta will be administered from this cycle. Follow-up in 6 weeks. - Time Spent With Patient Time Spent with Patient (in minutes): 15
[2022-08-28] MEDS: DEXTROSE 5% IV ×2 (12:44→12:45)
[2022-08-28] MEDS: LEUCOVORIN CALCIUM IV (12:44)
[2022-08-28] MEDS: IRINOTECAN HCL IV (12:45)
--- NOTE | 2022-08-28 14:29 | MHC.HEMONC ---
Pt here for C2D1 Avastin/FOLFIRI. Port accessed with blood return noted. Labs drawn from port-specimen to lab. Urine specimen obtained-specimen to lab.Pt states he has fatigue and continues with numbness in both feet. Occasional diarrhea. Lab results reviewed-given to Dr Mckee to review. Plan for Neulasta injection on pump take down day. Okay to receive treatment today. Pre medicated with tylenol, benadryl, emend, zofran, dexamethasone, atropine SC in right arm-tolerated well. Avastin/Folfiri given as ordered-tolerated well. Dr Mckee into see pt. 5FU home chemo pump started as ordered. Pt instructed to take dexamethasone for 2 days twice a day starting tomorrow. Verbalizes understanding.Discharge packet given with next appointment scheduled. Instructed to call department with any side effects or concerns
[2022-08-28] MEDS: FLUOROURACIL 138 MG IVPUSH (14:40)
[2022-08-28] MEDS: FLUOROURACIL IV (14:41)
[2022-08-30] MEDS: Heparin Sodium,Porcine Flush 500 UNIT/5 ML SYRINGE IVFLUSH (12:54)
[2022-08-30 15:31] VITALS: BP 109/58; PULSE 71; RESP 18; O2SAT 97
--- NOTE | 2022-08-30 15:34 | MHC.HEMONC ---
Pump take down- reservoir zero. Port flushed with Heparin and de-accessed. Neulasta 6mg s/c administered to right upper arm and well tolerated. VSS. Patient does report fatigue and slight nausea. Patient instructed to call department if unable to maintain hydration. Patient is taking prn Zofran- no vomiting at this time.
[2022-09-11 08:10] VITALS: BP 119/62; PULSE 79; RESP 18; TEMP 36.6; O2SAT 94; BMI 20.9
[2022-09-11 08:42] LABS: MANUAL DIFF FLAG NO
[2022-09-11 08:43] LABS: Appearance Urine Clear; Color Urine Yellow; Glucose Urine UA Negative (Negative); Leukocyte Esterase Urine Negative (Negative); Nitrite Urine Negative (Negative); PH 5.5 (5.0-9.0); Urine Blood Negative (Negative); Urine Ketones Negative (Negative); Urine Protein Negative (Neg-Trace)
[2022-09-11 08:45] LABS: Basophils Absolute Auto 0.1 X10*3/uL (0.0-0.2); Basophils Percent Auto 0.7 % (0-2); Eosinophils Absolute Auto 0.1 X10*3/uL (0.0-0.4); Eosinophils Percent Auto 0.9 % (0-4); Hematocrit 34.5 % (42.0-52.0); Hemoglobin 11.3 g/dl (14.0-18.0); Imm Gran Abs Auto 0.12 X10*3/uL (0.00-0.03); Imm Gran Pct Auto 1.6 % (0.0-0.4); Lymphocytes Absolute Auto 0.8 X10*3/uL (1.2-4.9); Lymphocytes Percent Auto 10.7 % (20-40); Mean Corpuscular HGB Conc 32.8 g/dl (31.0-36.0); Mean Corpuscular Hemoglobin 31.8 pg (27.0-33.0); Mean Corpuscular Volume 97.2 fL (80.0-98.0); Mean Platelet Volume 11.9 fL (9.4-12.4); Monocytes Absolute Auto 0.3 X10*3/uL (0.1-1.2); Monocytes Percent Auto 4.3 % (2-11); Neutrophils Absolute Auto 6.3 x10*3/uL (2.0-8.3); Neutrophils Percent Auto 81.8 % (45-73); Platelet Count 114 X10*3/uL (160-400); Red Blood Count 3.55 X10*6/uL (4.60-5.80); Red Cell Distribution Width 19.3 % (11.0-16.0); White Blood Count 7.7 X10*3/uL (4.8-10.8)
[2022-09-11 08:59] LABS: Alanine Aminotransferase 26 U/L (0-40); Albumin Level 3.4 g/dL (3.5-5.0); Alkaline Phosphatase 99 U/L (39-117); Anion Gap 9 (12-20); Aspartate Amino Transferase 30 U/L (5-37); Bilirubin Total 0.8 mg/dL (0.0-1.0); Blood Urea Nitrogen 13 mg/dL (9-16); Calcium 8.8 mg/dL (8.4-10.2); Carbon Dioxide 25 mmol/L (22-29); Chloride 109 mmol/L (96-108); Creatinine Clr Calc Pharmacy 99.9; Estimated Glomerular Filt Rate > 60; Glucose Random 110 mg/dL (60-115); Potassium 3.8 mmol/L (3.3-5.1); Sodium 139 mmol/L (135-145); Total Protein 5.7 g/dL (6.5-8.0)
[2022-09-11] MEDS: dexAMETHasone sod phosphate 12 MG in 0.9 % Sodium Chloride 50 ML 200 MG IV (09:47)
[2022-09-11] MEDS: Acetaminophen 325 MG TABLET 650 MG PO (09:48)
[2022-09-11] MEDS: diphenhydrAMINE HCL 25 MG CAPSULE PO (09:48)
[2022-09-11] MEDS: ondansetron HCL 16 MG in 0.9 % Sodium Chloride 50 ML 232 MG IV (09:48)
[2022-09-11] MEDS: Fosaprepitant Dimeglumine 150 MG in 0.9 % Sodium Chloride 145 ML 300 MG IV (10:55)
[2022-09-11] MEDS: Atropine Sulfate 1 MG/ML VIAL 0.5 MG SUBCUT (11:33)
[2022-09-11] MEDS: SODIUM CHLORIDE 0.9% IV ×2 (11:43→14:52)
[2022-09-11] MEDS: BEVACIZUMAB IV (11:43)
[2022-09-11] MEDS: LEUCOVORIN CALCIUM IV (12:31)
[2022-09-11] MEDS: DEXTROSE 5% IV ×2 (12:31→12:33)
[2022-09-11] MEDS: IRINOTECAN HCL IV (12:33)
[2022-09-11] MEDS: FLUOROURACIL IV (14:52)
[2022-09-11] MEDS: FLUOROURACIL 138 MG IVPUSH (14:52)
--- NOTE | 2022-09-11 16:16 | MHC.HEMONC ---
Pt here for C3D1 Folfiri/Avastin. Pt amb to tx room 3. Pt reports Occasional nausea controlled with Zofran. Neuropathy unchanged. Some fatigue. Port to right chest accessed, biopatch applied, good blood return. Labs drawn and results reviewed. Premeds given as ordered and Atropine 0.5mg SubQ 30min prior to Irinotecan. Treatment infused. Pt toll well. 5FU push given and pt home with 5FU pump. Pt aware to return in 2 days for pump takedown and Neulasta. Pt also aware to take dexamethasone bidx2 days starting tomorrow. Summary given with next treatment in 2 weeks. Pt had question about a dental procedure. Pt states his dentist sent some information to Dr Mckee (which we did not get) about the procedure. Pt states he is getting dentures and has kendy prominences that they have to shave off. This nurse spoke with Dr Mckee and she states he should be off the Avastin 2 weeks prior and 1 week after proceedure. Pt was informed of this and that we did not get any information from the dentist. pt to speak with his dentist. Pt departed.
[2022-09-13] MEDS: Heparin Sodium,Porcine Flush 500 UNIT/5 ML SYRINGE IVFLUSH (13:01)
--- NOTE | 2022-09-13 13:11 | MHC.HEMONC ---
Addendum entered by Maria Luisa Nichols RN 09/13/22 13:45: pt called dental extraction is actually scheduled for 09/28 at [facility] [phone] [phone]. called office an spoke to staff they will fax request for clearance. Original Note: chemo pump d/c port flushed with heparin. pre dr hay no neulasta needed. refill of zofran and oxycodone sent to pharm. pt report needed dental work done scheduled for 10/01. no fax request from dental office yet, pt will call to give this dept dental office info.
--- NOTE | 2022-09-20 15:26 | MHC.HEMONC ---
Triage call: Received call from Selena (patient's )- dental procedure is booked for 09/28. Next chemotherapy cycle is scheduled for 09/25. Per Dr. Rylee garcía to skip this cycle and return two weeks after dental procedure. C3D1: scheduled for 10/09.
--- NOTE | 2022-09-25 09:14 | MHC.HEMONC ---
Triage call-pt called requesting refill on 30mg morphine-note given to Dr Mckee
[2022-10-09 08:02] VITALS: BP 131/61; PULSE 87; RESP 18; TEMP 36.6; O2SAT 94; BMI 20.7
[2022-10-09 08:32] LABS: MANUAL DIFF FLAG NO
[2022-10-09 08:36] LABS: Basophils Percent Auto 0.8 % (0-2); Eosinophils Absolute Auto 0.2 X10*3/uL (0.0-0.4); Eosinophils Percent Auto 4.8 % (0-4); Hematocrit 37.8 % (42.0-52.0); Imm Gran Abs Auto 0.02 X10*3/uL (0.00-0.03); Imm Gran Pct Auto 0.4 % (0.0-0.4); Lymphocytes Absolute Auto 0.9 X10*3/uL (1.2-4.9); Lymphocytes Percent Auto 17.9 % (20-40); Mean Corpuscular HGB Conc 31.7 g/dl (31.0-36.0); Mean Corpuscular Volume 97.7 fL (80.0-98.0); Monocytes Absolute Auto 0.5 X10*3/uL (0.1-1.2); Monocytes Percent Auto 9.7 % (2-11); Neutrophils Absolute Auto 3.3 x10*3/uL (2.0-8.3); Neutrophils Percent Auto 66.4 % (45-73); Platelet Count 103 X10*3/uL (160-400); Red Blood Count 3.87 X10*6/uL (4.60-5.80); Red Cell Distribution Width 15.9 % (11.0-16.0)
[2022-10-09 08:39] LABS: Appearance Urine Clear; Color Urine Yellow; Glucose Urine UA Negative (Negative); Leukocyte Esterase Urine Negative (Negative); Nitrite Urine Negative (Negative); PH 5.5 (5.0-9.0); Urine Blood Negative (Negative); Urine Ketones Negative (Negative); Urine Protein Negative (Neg-Trace)
[2022-10-09 08:48] LABS: Alanine Aminotransferase 22 U/L (0-40); Albumin Level 3.5 g/dL (3.5-5.0); Alkaline Phosphatase 65 U/L (39-117); Anion Gap 9 (12-20); Aspartate Amino Transferase 34 U/L (5-37); Bilirubin Total 1.3 mg/dL (0.0-1.0); Blood Urea Nitrogen 11 mg/dL (9-16); Calcium 8.6 mg/dL (8.4-10.2); Carbon Dioxide 25 mmol/L (22-29); Chloride 108 mmol/L (96-108); Creatinine Clr Calc Pharmacy 96.1; Estimated Glomerular Filt Rate > 60; Glucose Random 114 mg/dL (60-115); Potassium 3.8 mmol/L (3.3-5.1); Sodium 138 mmol/L (135-145); Total Protein 5.7 g/dL (6.5-8.0)
[2022-10-09] MEDS: Acetaminophen 325 MG TABLET 650 MG PO (09:37)
[2022-10-09] MEDS: diphenhydrAMINE HCL 25 MG CAPSULE PO (09:38)
[2022-10-09] MEDS: Fosaprepitant Dimeglumine 150 MG in 0.9 % Sodium Chloride 145 ML 300 MG IV (09:39)
[2022-10-09] MEDS: ondansetron HCL 16 MG in 0.9 % Sodium Chloride 50 ML 232 MG IV (09:41)
[2022-10-09] MEDS: dexAMETHasone sod phosphate 12 MG in 0.9 % Sodium Chloride 50 ML 212 MG IV (09:42)
[2022-10-09] MEDS: Atropine Sulfate 1 MG/ML VIAL 0.5 MG SUBCUT (09:42)
[2022-10-09] MEDS: BEVACIZUMAB IV (11:29)
[2022-10-09] MEDS: SODIUM CHLORIDE 0.9% IV ×2 (11:29→14:28)
[2022-10-09] MEDS: DEXTROSE 5% IV ×2 (12:23→12:24)
[2022-10-09] MEDS: IRINOTECAN HCL IV (12:23)
[2022-10-09] MEDS: LEUCOVORIN CALCIUM IV (12:24)
[2022-10-09] MEDS: FLUOROURACIL 138 MG IVPUSH (14:27)
[2022-10-09] MEDS: FLUOROURACIL IV (14:28)
--- NOTE | 2022-10-09 15:19 | MHC.HEMONC ---
Pt here for C4D1 FOLFIRI and Bevacizumab. Port accessed with blood return noted. Labs drawn from port-specimen to lab. Pt states he feels well today. States he is finished with all dental work-awaiting dentures now. Lab results reviewed-okay to receive treatment today. Pre medicated with emend, tylenol, zofran,decadron, atropine sulfate 0.5mg SC. Bevacizumab/Leucovorin, Irinotecan,5FU given as ordered-tolerated well. Home chemo pump attached. Next appointment scheduled for Sunday10/11/22 for chemo pump take down. Discharge packet given. Instructed to call with any side effects or concerns-verbalizes understanding of information given
[2022-10-11] MEDS: Heparin Sodium,Porcine Flush 500 UNIT/5 ML SYRINGE IVFLUSH (11:56)
--- NOTE | 2022-10-11 15:58 | MHC.HEMONC ---
Pt here for pump takedown. Pump taken down by Nani CARRILLO. Pt given calendar for next treatment. Pt departed.
[2022-10-23 08:34] LABS: MANUAL DIFF FLAG NO
[2022-10-23 08:37] LABS: Appearance Urine Clear; Color Urine Yellow; Glucose Urine UA Negative (Negative); Leukocyte Esterase Urine Negative (Negative); Nitrite Urine Negative (Negative); PH 5.5 (5.0-9.0); Specific Gravity - Urine 1.015 (1.005-1.025); Urine Blood Negative (Negative); Urine Ketones Negative (Negative); Urine Protein Negative (Neg-Trace)
[2022-10-23 08:39] LABS: Basophils Percent Auto 0.3 % (0-2); Eosinophils Absolute Auto 0.2 X10*3/uL (0.0-0.4); Eosinophils Percent Auto 5.7 % (0-4); Hematocrit 34.9 % (42.0-52.0); Hemoglobin 11.5 g/dl (14.0-18.0); Imm Gran Abs Auto 0.01 X10*3/uL (0.00-0.03); Imm Gran Pct Auto 0.3 % (0.0-0.4); Lymphocytes Absolute Auto 0.9 X10*3/uL (1.2-4.9); Lymphocytes Percent Auto 21.9 % (20-40); Mean Corpuscular Hemoglobin 31.5 pg (27.0-33.0); Mean Corpuscular Volume 95.6 fL (80.0-98.0); Mean Platelet Volume 10.9 fL (9.4-12.4); Monocytes Absolute Auto 0.4 X10*3/uL (0.1-1.2); Monocytes Percent Auto 11.1 % (2-11); Neutrophils Absolute Auto 2.4 x10*3/uL (2.0-8.3); Neutrophils Percent Auto 60.7 % (45-73); Platelet Count 128 X10*3/uL (160-400); Red Blood Count 3.65 X10*6/uL (4.60-5.80); Red Cell Distribution Width 15.4 % (11.0-16.0); White Blood Count 3.9 X10*3/uL (4.8-10.8)
[2022-10-23 08:40] VITALS: BP 114/72; PULSE 82; RESP 16; TEMP 36.8; O2SAT 96; BMI 20.3
[2022-10-23 08:52] LABS: Alanine Aminotransferase 24 U/L (0-40); Albumin Level 3.6 g/dL (3.5-5.0); Alkaline Phosphatase 70 U/L (39-117); Anion Gap 12 (12-20); Aspartate Amino Transferase 30 U/L (5-37); Bilirubin Total 1.2 mg/dL (0.0-1.0); Blood Urea Nitrogen 10 mg/dL (9-16); Calcium 8.8 mg/dL (8.4-10.2); Carbon Dioxide 23 mmol/L (22-29); Chloride 106 mmol/L (96-108); Estimated Glomerular Filt Rate > 60; Glucose Random 103 mg/dL (60-115); Potassium 4.2 mmol/L (3.3-5.1); Sodium 137 mmol/L (135-145); Total Protein 5.9 g/dL (6.5-8.0)
--- NOTE | 2022-10-23 09:12 | PM.HEMONCPN ---
Medical Summary - Medical Summary Date of Service: 10/23/22 Chief complaint: Follow-up and scheduled treatment Primary Care Provider: Jono Headley MD Medical Summary: Metastatic colon cancer diagnosed in October 2018. Presented with abdominal pain, 30 pound weight loss and severe pain. He had abnormal colonoscopy in 2009. He was told he needed a repeat colonoscopy in 5 years but he did not go for testing. CT abdomen/pelvis with IV contrast shows multiple areas of wall thickening in the sigmoid colon as well as thickening and enhancement of cecum, terminal ileum. Long segment of wall thickening of the distal transverse colon and left colon. Enlarged mesenteric and retroperitoneal lymph nodes, multiple liver metastasis and lung metastasis, all of these worrisome for metastatic colorectal malignancy. 11/01/18-Core biopsy of the right liver mass, moderately differentiated adenocarcinoma consistent with colorectal primary. KRAS mutation not detected BRAF mutation not detected. NRAS negative, MSI proficient or MSI stable. He developed bowel obstruction, palliative bypass ileostomy has been performed in November 2018. He started on mFOLFOX/Avastin regimen from 11/27/2018. His last treatment cycle 13 was on 05/14/2019. 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 Repeat CT abdomen/pelvis on 09/18/2019 showed further decrease in size of liver metastasis. He was on maintenance Xeloda 1500 mg p.o. b.i.d. 2 weeks on/1 week off, along with bevacizumab Q 3 weeks starting 10/22/2019 until 12/13/2020. Rising CEA as well as imaging in November 2020 showed evidence of progressive disease. He started irinotecan with bevacizumab from December 2020. Interval History Interval history: Patient is here in follow-up and scheduled treatment. He is eating better and he stopped losing weight. He denies nausea or emesis. No significant diarrhea and denies abdominal discomfort. No fever or chills. Review of Systems - Constitutional Reports as per HPI, Denies fatigue, Denies malaise, Denies night sweats - Cardiovascular Reports no additional cardiovascular complaints - Respiratory Reports no additional respiratory complaints - Gastrointestinal Reports no additional gastrointestinal complaints [facility] Medical History: Medical History (Last Updated 08/28/22 @ 09:09 by Sheree Mckee MD) Chronic respiratory failure Colon cancer metastasized to liver Colon cancer metastasized to liver ILD (interstitial lung disease) Pulmonary fibrosis Pulmonary nodule Tubular adenoma Family History: Family History (Last Reviewed 08/04/22 @ 20:56 by SANDRO Rob) Son Cystic fibrosis Brother Esophageal cancer Maternal Aunt Lung cancer Surgical History: Surgical History (Last Reviewed 08/04/22 @ 20:56 by SANDRO Rob) H/O knee surgery Social History: Social History (Last Reviewed 08/04/22 @ 20:56 by SANDRO Rob) Living Situation History: Household Members: Spouse Household Members: Children Substance Use History: Use of substances other than those prescribed or required for medical reasons: No Advance Directives: Advance Directives: Yes Advance Directives Information Provided: No Advance Directives on File: Yes Advance Directives Date on File: 10/25/21 Nutrition Assessment: Recently lost weight without trying: No Occupation Assessmet: service: No Current occupational status: employed Current occupation: [employer] On[employer] 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 Performance Status ECOG Performance Status: 1 Home Medications and Allergies Current Medications: Current Medications Acetaminophen (Acetaminophen 325 Mg Tablet) 650 mg PO ONCE PINEDA Stop: 10/23/22 23:59 Atropine Sulfate (Atropine Sulfate 1 Mg/Ml Vial) 0.5 mg SUBCUT ONCE PINEDA Stop: 10/23/22 23:59 Diphenhydramine HCl (Diphenhydramine Hcl 25 Mg Capsule) 25 mg PO ONCE PINEDA Stop: 10/23/22 23:59 Dexamethasone Sodium Phosphate (Decadron) 12 mg in 50 mls @ 200 mls/hr IV ONCE PINEDA Stop: 10/23/22 23:59 Ondansetron HCl (Zofran) 16 mg in 50 mls @ 200 mls/hr IV ONCE PINEDA Stop: 10/23/22 23:59 Fosaprepitant 150 mg/ Sodium (Chloride) 150 mls @ 300 mls/hr IV ONCE PINEDA Stop: 10/23/22 23:59 Bevacizumab 320 mg/ Sodium (Chloride) 100 mls @ 200 mls/hr IV ONCE PINEDA Stop: 10/23/22 23:59 Fluorouracil 3,400 mg/ Sodium (Chloride) 92 mls @ 2 mls/hr IV ONCE PINEDA Stop: 10/23/22 23:59 Leucovorin Calcium 570 mg/ (Dextrose) 307 mls @ 204.667 mls/hr IV ONCE PINEDA Last Infusion: 10/09/22 13:54 Dose: Infused Home Medications Medication Instructions Recorded Confirmed Type loperamide 2 mg capsule 2 mg PO BID PRN Diarrhea 05/19/20 10/09/22 History acetaminophen 650 mg 650 mg PO Q6H PRN Pain 08/04/22 10/09/22 History tablet,extended release omeprazole 40 mg capsule,delayed 40 mg PO DAILY@0630 08/04/22 10/09/22 History release Allergies Allergy/AdvReac Type Severity Reaction Status Date / Time prednisone [PREDNISONE] AdvReac Intermediate Psychosis Verified 08/28/22 08:37 Exam Vital signs: Vital Signs Temp 98.3 F 10/23/22 08:40 Pulse 82 10/23/22 08:40 Resp 16 10/23/22 08:40 BP 114/72 10/23/22 08:40 Pulse Ox 96 10/23/22 08:40 O2 Del Method 10/23/22 08:40 Intake & Output 10/22/22 10/23/22 10/23/22 18:59 06:59 18:59 Other: Weight 66.1 kg Weight in Grams 88186 Weight 66.1 kg BMI result Body Mass Index 20.3 - Constitutional Present: no acute distress - Routine HEENT Exam Head: Present: normal inspection - Routine Neck Exam Present: full ROM. Absent: lymphadenopathy - Routine Respiratory Exam Present: CTAB - Routine Cardiovascular Exam Cardiovascular: Present: RRR, S1, S2 - Routine Abdominal Exam Present: normal bowel sounds, soft. Absent: mass, organomegaly - Routine Extremities Exam Present: full ROM. Absent: calf tenderness, pedal edema - Routine Skin Exam Present: intact. Absent: cyanosis, erythema - Routine Neurological Exam Present: alert, oriented X3 Data - Labs CBC & Chem 7: 10/23/22 08:25 10/23/22 08:25 Assessment and Plan Patient Active problem list reviewed?: Yes (1) Colon cancer metastasized to liver Status: Inactive Assessment and plan: 1. This is a 62-year-old gentleman, with metastatic colon carcinoma, with liver and lung metastases. Biopsy of the liver lesion, Moderately differentiated adenocarcinoma. KRAS and BRAF negative. NRAS negative, MSI proficient or MSI stable. HER2 and panTRK negative. Initial CEA elevated at 91. He developed bowel obstruction, palliative bypass ileostomy has been performed in November 2018. He started on mFOLFOX/Avastin regimen from 11/27/2018. His last treatment cycle 13 was on 05/14/2019. He was on maintenance Xeloda 1500 mg p.o. b.i.d. 2 weeks on/1 week off, along with bevacizumab Q 3 weeks starting 10/22/2019 until 12/13/2020. Rising CEA as well as imaging in November 2020 showed evidence of progressive disease. He started irinotecan with bevacizumab from December 2020 until 07/2022. CT chest/ abdomen and pelvis in July 2022 showed progression in lung nodules. CEA penelope to 18.8 NG/mL. Treatment was changed to FOLFIRI Avastin. 2. 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 He has been tapered off prednisone and CellCept. He is also off the oxygen. 3. Chronic arthralgias. He is on MSContin 30 mg b.i.d. He is on oxycodone 5 mg for breakthrough pain 2 to 3 times a day. He has right-sided low back pain, probably muscular. 4. Intermittent elevation of bilirubin, indirect bilirubinemia, probable Gilbert's syndrome. 5. Diarrhea related to chemotherapy. He was advised to increase frequency of Imodium to after every bowel movement. He was advised that it was safe to take 4-6 Imodium's a day. CEA level is gradually coming down. Continue with current therapy. Follow-up in 6 weeks. - Time Spent With Patient Time Spent with Patient (in minutes): 15
[2022-10-23] MEDS: diphenhydrAMINE HCL 25 MG CAPSULE PO (09:36)
[2022-10-23] MEDS: Acetaminophen 325 MG TABLET 650 MG PO (09:36)
[2022-10-23] MEDS: dexAMETHasone sod phosphate/NS 12 MG/50 ML PIGGYBACK 200 MG IV (09:37)
[2022-10-23] MEDS: Fosaprepitant Dimeglumine 150 MG in 0.9 % Sodium Chloride 145 ML 300 MG IV (09:40)
[2022-10-23] MEDS: Atropine Sulfate 1 MG/ML VIAL 0.5 MG SUBCUT (10:58)
[2022-10-23] MEDS: BEVACIZUMAB IV (10:59)
[2022-10-23] MEDS: SODIUM CHLORIDE 0.9% IV ×2 (10:59→13:47)
[2022-10-23] MEDS: IRINOTECAN HCL IV (11:44)
[2022-10-23] MEDS: DEXTROSE 5% IV ×2 (11:44→11:48)
[2022-10-23] MEDS: LEUCOVORIN CALCIUM IV (11:48)
[2022-10-23] MEDS: FLUOROURACIL IV (13:47)
[2022-10-23] MEDS: FLUOROURACIL 138 MG IVPUSH (13:47)
--- NOTE | 2022-10-23 15:12 | MHC.HEMONC ---
C5D1: FOLFIRI + AVASTIN. Patient reports feeling well. VSS. Port accessed to right chest without difficulty- labs obtained and reviewed. UA negative. Exam with Dr. Mckee today. No new side effects reported. Pre-medicated with Tylenol 650mg PO, Dex 12mg IV, Zofran 16mg IV, and Emend 150mg IV. Atropine 0.5mg s/c administered to right upper arm. Infusions well tolerated- 5FU bolus and pump administered. Discharge packet provided. Patient to return on Sunday for pump take down and Neulasta.
[2022-10-25] MEDS: Heparin Sodium,Porcine Flush 500 UNIT/5 ML SYRINGE IVFLUSH (11:01)
[2022-10-25 11:06] VITALS: BP 149/74; PULSE 82; RESP 17; TEMP 36.9; O2SAT 97
--- NOTE | 2022-10-25 11:18 | MHC.HEMONC ---
Pt here for pump takedown. Pt offers no complaints. Pump volume at zero. Pump disconnected and port flushed with saline and heparin. Good blood return. Site benign. this nurse questioned need for neulasta with Dr Mckee. No neulasta today. Will watch for need in future. Pt declined summary. Pt departed.
[2022-11-06 08:16] VITALS: BP 151/70; PULSE 101; RESP 18; TEMP 37; O2SAT 92; BMI 20.4
[2022-11-06 08:38] LABS: MANUAL DIFF FLAG NO
[2022-11-06 08:40] LABS: Basophils Percent Auto 0.3 % (0-2); Eosinophils Absolute Auto 0.2 X10*3/uL (0.0-0.4); Eosinophils Percent Auto 5.1 % (0-4); Hematocrit 37.2 % (42.0-52.0); Hemoglobin 12.2 g/dl (14.0-18.0); Imm Gran Abs Auto 0.01 X10*3/uL (0.00-0.03); Imm Gran Pct Auto 0.3 % (0.0-0.4); Lymphocytes Absolute Auto 0.9 X10*3/uL (1.2-4.9); Lymphocytes Percent Auto 27.8 % (20-40); Mean Corpuscular HGB Conc 32.8 g/dl (31.0-36.0); Mean Corpuscular Hemoglobin 31.4 pg (27.0-33.0); Mean Corpuscular Volume 95.9 fL (80.0-98.0); Mean Platelet Volume 11.4 fL (9.4-12.4); Monocytes Absolute Auto 0.5 X10*3/uL (0.1-1.2); Monocytes Percent Auto 14.2 % (2-11); Neutrophils Absolute Auto 1.7 x10*3/uL (2.0-8.3); Neutrophils Percent Auto 52.3 % (45-73); Platelet Count 105 X10*3/uL (160-400); Red Blood Count 3.88 X10*6/uL (4.60-5.80); Red Cell Distribution Width 15.6 % (11.0-16.0); White Blood Count 3.3 X10*3/uL (4.8-10.8)
[2022-11-06 08:45] LABS: Appearance Urine Clear; Color Urine Yellow; Glucose Urine UA Negative (Negative); Leukocyte Esterase Urine Negative (Negative); Nitrite Urine Negative (Negative); PH 5.5 (5.0-9.0); Specific Gravity - Urine 1.015 (1.005-1.025); Urine Blood Negative (Negative); Urine Ketones Negative (Negative); Urine Protein Negative (Neg-Trace)
[2022-11-06 08:54] LABS: Alanine Aminotransferase 26 U/L (0-40); Albumin Level 3.6 g/dL (3.5-5.0); Alkaline Phosphatase 78 U/L (39-117); Anion Gap 11 (12-20); Aspartate Amino Transferase 36 U/L (5-37); Bilirubin Total 1.4 mg/dL (0.0-1.0); Blood Urea Nitrogen 11 mg/dL (9-16); Carbon Dioxide 24 mmol/L (22-29); Chloride 103 mmol/L (96-108); Creatinine Clr Calc Pharmacy 83.5; Estimated Glomerular Filt Rate > 60; Glucose Random 150 mg/dL (60-115); Potassium 4.2 mmol/L (3.3-5.1); Sodium 134 mmol/L (135-145); Total Protein 5.9 g/dL (6.5-8.0)
[2022-11-06] MEDS: diphenhydrAMINE HCL 25 MG CAPSULE PO (09:28)
[2022-11-06] MEDS: Acetaminophen 325 MG TABLET 650 MG PO (09:28)
[2022-11-06] MEDS: dexAMETHasone sod phosphate/NS 12 MG/50 ML PIGGYBACK 200 MG IV (09:29)
[2022-11-06] MEDS: Fosaprepitant Dimeglumine 150 MG in 0.9 % Sodium Chloride 145 ML 300 MG IV (09:50)
[2022-11-06] MEDS: Atropine Sulfate 1 MG/ML VIAL 0.5 MG SUBCUT (11:27)
[2022-11-06] MEDS: SODIUM CHLORIDE 0.9% IV ×2 (11:32→14:03)
[2022-11-06] MEDS: BEVACIZUMAB IV (11:32)
[2022-11-06] MEDS: DEXTROSE 5% IV ×2 (12:16)
[2022-11-06] MEDS: LEUCOVORIN CALCIUM IV (12:16)
[2022-11-06] MEDS: IRINOTECAN HCL IV (12:16)
[2022-11-06] MEDS: FLUOROURACIL 138 MG IVPUSH (14:02)
[2022-11-06] MEDS: FLUOROURACIL IV (14:03)
--- NOTE | 2022-11-06 15:00 | MHC.HEMONC ---
Pt here fot C6D1 FolFiri /Avastin. Pt reports has intermittent diarrhea but controls it with meds prescribed. Pt otherwise feels good. Port to right chest accessed, good blood return. Labs drawn and reviewed with Dr Mckee. Pt feels well. Ok to treat. Pre meds given. Tylenol 650mg po, Dex 12mg IV, Zofran 16mg IV, Emend 150mg IV, Atropine 0.5mg SubQ 30 min prior to irinotecan. . Avastin, Irinotecan, Leucovorin infused. 5FU push given and pump attached. Pt to return on sun for pump takedown. Summary given. Pt departed.
[2022-11-08 11:20] VITALS: BP 113/63; PULSE 68; RESP 16; TEMP 36.3; O2SAT 95
--- NOTE | 2022-11-08 11:53 | MHC.HEMONC ---
Pt here for pump take down and Neulasta. Dr Mckee wants neulasta given WBC 3.3. Pt offers no complaints. Pt educated about neulasta reason needed and side effects. Neulasta given ENDY. Pump at zero ml. pump disconnected and port flushed with saline and heparin. Good blood return. Port de accessed. Pt declined summary. Pt departed. Next treatment 2 weeks.
--- NOTE | 2022-11-13 09:46 | MHC.HEMONC ---
Pt Selena called triage line and asked for refill of Cholestyramine. Dr Friend notified and med sent to pharmacy.
[2022-11-20 08:15] VITALS: BP 104/55; PULSE 78; RESP 18; TEMP 36.6; O2SAT 93; BMI 20.5
[2022-11-20 08:43] LABS: MANUAL DIFF FLAG NO
[2022-11-20 08:44] LABS: Basophils Percent Auto 0.6 % (0-2); Eosinophils Absolute Auto 0.1 X10*3/uL (0.0-0.4); Eosinophils Percent Auto 1.7 % (0-4); Hematocrit 37.7 % (42.0-52.0); Hemoglobin 12.3 g/dl (14.0-18.0); Imm Gran Abs Auto 0.06 X10*3/uL (0.00-0.03); Imm Gran Pct Auto 0.8 % (0.0-0.4); Lymphocytes Absolute Auto 0.7 X10*3/uL (1.2-4.9); Lymphocytes Percent Auto 9.9 % (20-40); Mean Corpuscular HGB Conc 32.6 g/dl (31.0-36.0); Mean Corpuscular Hemoglobin 30.8 pg (27.0-33.0); Mean Corpuscular Volume 94.5 fL (80.0-98.0); Mean Platelet Volume 12.9 fL (9.4-12.4); Monocytes Absolute Auto 0.4 X10*3/uL (0.1-1.2); Monocytes Percent Auto 5.5 % (2-11); Neutrophils Absolute Auto 5.8 x10*3/uL (2.0-8.3); Neutrophils Percent Auto 81.5 % (45-73); Red Blood Count 3.99 X10*6/uL (4.60-5.80); Red Cell Distribution Width 16.6 % (11.0-16.0); White Blood Count 7.1 X10*3/uL (4.8-10.8)
[2022-11-20 08:45] LABS: Appearance Urine Clear; Color Urine Yellow; Glucose Urine UA Negative (Negative); Leukocyte Esterase Urine Negative (Negative); Nitrite Urine Negative (Negative); PH 5.5 (5.0-9.0); Urine Blood Negative (Negative); Urine Ketones Negative (Negative); Urine Protein Negative (Neg-Trace)
[2022-11-20 08:49] LABS: Platelet Count 94 X10*3/uL (160-400)
[2022-11-20 09:03] LABS: Alanine Aminotransferase 27 U/L (0-40); Albumin Level 3.4 g/dL (3.5-5.0); Alkaline Phosphatase 109 U/L (39-117); Anion Gap 10 (12-20); Aspartate Amino Transferase 38 U/L (5-37); Blood Urea Nitrogen 10 mg/dL (9-16); Calcium 8.6 mg/dL (8.4-10.2); Carbon Dioxide 25 mmol/L (22-29); Chloride 105 mmol/L (96-108); Creatinine Clr Calc Pharmacy 90.3; Estimated Glomerular Filt Rate > 60; Glucose Random 153 mg/dL (60-115); Potassium 4.2 mmol/L (3.3-5.1); Sodium 136 mmol/L (135-145); Total Protein 5.6 g/dL (6.5-8.0)
[2022-11-20] MEDS: dexAMETHasone sod phosphate/NS 12 MG/50 ML PIGGYBACK 200 MG IV (09:30)
[2022-11-20] MEDS: Acetaminophen 325 MG TABLET 650 MG PO (09:30)
[2022-11-20] MEDS: diphenhydrAMINE HCL 25 MG CAPSULE PO (09:30)
[2022-11-20 09:38] VITALS: O2SAT 95
[2022-11-20] MEDS: Fosaprepitant Dimeglumine 150 MG in 0.9 % Sodium Chloride 145 ML 300 MG IV (09:59)
[2022-11-20] MEDS: Atropine Sulfate 1 MG/ML VIAL 0.5 MG SUBCUT (11:10)
[2022-11-20] MEDS: SODIUM CHLORIDE 0.9% IV ×2 (11:11→14:06)
[2022-11-20] MEDS: BEVACIZUMAB IV (11:11)
[2022-11-20] MEDS: DEXTROSE 5% IV ×2 (12:06→12:07)
[2022-11-20] MEDS: LEUCOVORIN CALCIUM IV (12:06)
[2022-11-20] MEDS: IRINOTECAN HCL IV (12:07)
[2022-11-20] MEDS: FLUOROURACIL 138 MG IVPUSH (14:05)
[2022-11-20] MEDS: FLUOROURACIL IV (14:06)
--- NOTE | 2022-11-20 14:38 | MHC.HEMONC ---
Pt here for C7D1 Avastin,Folfiri. Pt reports woke up sweaty last night and chilly. No other symptoms. DR Mckee aware. Port to right chest accessed. Good blood return. Labs drawn via port.Urine obtained. Results reviewed with Dr Mckee. Ok to treat. Pre meds given Tylenol po, Benadryl po, dex IV, Zofran IV, Emend IV, Atropine 0.5mg subq 30 min prior to the irinotecan. Treatment infused and toll well. 5FU push given and pump attached. Summary given. Pt to return on sun for pump takedown.
[2022-11-22 11:34] VITALS: BP 112/65; PULSE 87; RESP 18; TEMP 37; O2SAT 93; BMI 20.7
[2022-11-22] MEDS: Heparin Sodium,Porcine Flush 500 UNIT/5 ML SYRINGE IVFLUSH (11:40)
--- NOTE | 2022-11-22 13:52 | MHC.HEMONC ---
Addendum entered by Lola Bermeo, LORENA 11/22/22 13:55: Port flushed with saline/heparin. good blood return. De accessed port. Site benign. Pt declined summary. Pt departed. Original Note: Pt here for pump takedown. WBC 7.1 no neulasta today per DR Mckee. Pump disconnected. Pump at zero ml. Pt asking for new script for morphine, pharmacy asking for new script. Dr Mckee aware and will put in new order.
--- NOTE | 2022-11-22 14:36 | MHC.HEMONC ---
This nurse called and spoke to Wendi Walters to let them know the script for morphine ext release has been sent in to the [facility] on [address].
[2022-12-04 08:13] VITALS: BP 117/68; PULSE 92; RESP 18; TEMP 36.6; O2SAT 93; BMI 20.5
[2022-12-04 08:54] LABS: Basophils Percent Auto 1.1 % (0-2); Eosinophils Absolute Auto 0.1 X10*3/uL (0.0-0.4); Eosinophils Percent Auto 5.9 % (0-4); Hematocrit 35.9 % (42.0-52.0); Hemoglobin 11.7 g/dl (14.0-18.0); Imm Gran Abs Auto 0.01 X10*3/uL (0.00-0.03); Imm Gran Pct Auto 0.5 % (0.0-0.4); Lymphocytes Absolute Auto 0.5 X10*3/uL (1.2-4.9); Lymphocytes Percent Auto 24.2 % (20-40); MANUAL DIFF FLAG SCAN; Mean Corpuscular HGB Conc 32.6 g/dl (31.0-36.0); Mean Corpuscular Hemoglobin 30.9 pg (27.0-33.0); Mean Corpuscular Volume 94.7 fL (80.0-98.0); Mean Platelet Volume 11.8 fL (9.4-12.4); Monocytes Absolute Auto 0.4 X10*3/uL (0.1-1.2); Neutrophils Absolute Auto 0.9 x10*3/uL (2.0-8.3); Neutrophils Percent Auto 46.3 % (45-73); Platelet Count 121 X10*3/uL (160-400); Red Blood Count 3.79 X10*6/uL (4.60-5.80); Red Cell Distribution Width 16.8 % (11.0-16.0); SCAN SMEAR FLAG 1
[2022-12-04 08:55] LABS: Appearance Urine Clear; Color Urine Yellow; Glucose Urine UA Negative (Negative); Leukocyte Esterase Urine Negative (Negative); Nitrite Urine Negative (Negative); PH 5.5 (5.0-9.0); Urine Blood Negative (Negative); Urine Ketones Negative (Negative); Urine Protein Negative (Neg-Trace)
--- NOTE | 2022-12-04 08:56 | MHC.HEMONCSW ---
SW checked in with Pt about the Health Care proxy - it seemed familiar to him, but he was going to fill it out until he recalled he di dfill one out. His probably knows where it is and he will bring in a copy. He said he is doing ok otherwise.
[2022-12-04 08:58] LABS: White Blood Count 1.9 X10*3/uL (4.8-10.8)
[2022-12-04 09:08] LABS: Alanine Aminotransferase 27 U/L (0-40); Albumin Level 3.3 g/dL (3.5-5.0); Alkaline Phosphatase 79 U/L (39-117); Anion Gap 11 (12-20); Aspartate Amino Transferase 35 U/L (5-37); Bilirubin Total 1.2 mg/dL (0.0-1.0); Blood Urea Nitrogen 12 mg/dL (9-16); Calcium 8.6 mg/dL (8.4-10.2); Carbon Dioxide 23 mmol/L (22-29); Chloride 107 mmol/L (96-108); Creatinine Clr Calc Pharmacy 87.1; Estimated Glomerular Filt Rate > 60; Glucose Random 119 mg/dL (60-115); Potassium 4.4 mmol/L (3.3-5.1); Sodium 137 mmol/L (135-145); Total Protein 5.4 g/dL (6.5-8.0)
[2022-12-04 09:23] LABS: SLIDE REVIEW VERIFIED
--- NOTE | 2022-12-04 15:44 | MHC.HEMONC ---
Patient scheduled for C8D1: FOLFIRI +AVASTIN. Port accessed to right chest without difficulty- CBC/CMP obtained. WBC 1.9 and ANC 0.9 unable to treat today due to low counts. Dr. Mckee states to move chemotherapy by one week. Chemo orders moved and pharmacy notified. Discharge packet provided with calender. Patient to return on 12/11 for chemotherapy and follow up with Dr. Mckee. Educated on neutropenic precautions- patient verbalizes understanding. Instructed patient to call office if any fevers arise or signs of possible infection.
--- NOTE | 2022-12-11 08:34 | PM.HEMONCPN ---
Medical Summary - Medical Summary Date of Service: 12/11/22 Chief complaint: Follow-up Primary Care Provider: Jono Headley MD Medical Summary: Metastatic colon cancer diagnosed in October 2018. Presented with abdominal pain, 30 pound weight loss and severe pain. He had abnormal colonoscopy in 2009. He was told he needed a repeat colonoscopy in 5 years but he did not go for testing. CT abdomen/pelvis with IV contrast shows multiple areas of wall thickening in the sigmoid colon as well as thickening and enhancement of cecum, terminal ileum. Long segment of wall thickening of the distal transverse colon and left colon. Enlarged mesenteric and retroperitoneal lymph nodes, multiple liver metastasis and lung metastasis, all of these worrisome for metastatic colorectal malignancy. 11/01/18-Core biopsy of the right liver mass, moderately differentiated adenocarcinoma consistent with colorectal primary. KRAS mutation not detected BRAF mutation not detected. NRAS negative, MSI proficient or MSI stable. He developed bowel obstruction, palliative bypass ileostomy has been performed in November 2018. He started on mFOLFOX/Avastin regimen from 11/27/2018. His last treatment cycle 13 was on 05/14/2019. 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 Repeat CT abdomen/pelvis on 09/18/2019 showed further decrease in size of liver metastasis. He was on maintenance Xeloda 1500 mg p.o. b.i.d. 2 weeks on/1 week off, along with bevacizumab Q 3 weeks starting 10/22/2019 until 12/13/2020. Rising CEA as well as imaging in November 2020 showed evidence of progressive disease. He started irinotecan with bevacizumab from December 2020. Interval History Interval history: Patient is here in follow-up and scheduled treatment. He is eating better and he stopped losing weight. He denies nausea or emesis. No significant diarrhea and denies abdominal discomfort. No fever or chills. He did not feel that well last time, treatment was delayed because of neutropenia. He is feeling a lot better today. Review of Systems - Constitutional Reports as per HPI, Denies fatigue, Denies malaise, Denies night sweats, Denies poor appetite - Cardiovascular Reports no additional cardiovascular complaints - Respiratory Reports no additional respiratory complaints - Gastrointestinal Reports no additional gastrointestinal complaints [facility] Medical History: Medical History (Last Updated 08/28/22 @ 09:09 by Sheree Mckee MD) Chronic respiratory failure Colon cancer metastasized to liver Colon cancer metastasized to liver ILD (interstitial lung disease) Pulmonary fibrosis Pulmonary nodule Tubular adenoma Family History: Family History (Last Reviewed 08/04/22 @ 20:56 by SANDRO Rob) Son Cystic fibrosis Brother Esophageal cancer Maternal Aunt Lung cancer Surgical History: Surgical History (Last Reviewed 08/04/22 @ 20:56 by SANDRO Rob) H/O knee surgery Social History: Social History (Last Reviewed 08/04/22 @ 20:56 by SANDRO Rob) Living Situation History: Household Members: Spouse Household Members: Children Substance Use History: Use of substances other than those prescribed or required for medical reasons: No Advance Directives: Advance Directives: Yes Advance Directives Information Provided: No Advance Directives on File: Yes Advance Directives Date on File: 10/25/21 Nutrition Assessment: Recently lost weight without trying: No Occupation Assessmet: service: No Current occupational status: employed Current occupation: [employer] Medications and Allergies Current Medications: Current Medications Acetaminophen (Acetaminophen 325 Mg Tablet) 650 mg PO ONCE PINEDA Stop: 12/11/22 23:59 Atropine Sulfate (Atropine Sulfate 1 Mg/Ml Vial) 0.5 mg SUBCUT ONCE PINEDA Stop: 12/11/22 23:59 Diphenhydramine HCl (Diphenhydramine Hcl 25 Mg Capsule) 25 mg PO ONCE PINEDA Stop: 12/11/22 23:59 Irinotecan HCl 260 mg/ (Dextrose) 513 mls @ 342 mls/hr IV ONCE PINEDA Last Infusion: 11/06/22 13:46 Dose: Infused Irinotecan HCl 260 mg/ (Dextrose) 513 mls @ 342 mls/hr IV ONCE PINEDA Last Infusion: 11/20/22 13:37 Dose: Infused Dexamethasone Sodium Phosphate (Decadron) 12 mg in 50 mls @ 200 mls/hr IV ONCE PINEDA Stop: 12/11/22 23:59 Ondansetron HCl (Zofran) 16 mg in 50 mls @ 200 mls/hr IV ONCE PINEDA Stop: 12/11/22 23:59 Fosaprepitant 150 mg/ Sodium (Chloride) 150 mls @ 300 mls/hr IV ONCE PINEDA Stop: 12/11/22 23:59 Home Medications Medication Instructions Recorded Confirmed Type loperamide 2 mg capsule 2 mg PO BID PRN Diarrhea 05/19/20 10/09/22 History acetaminophen 650 mg 650 mg PO Q6H PRN Pain 08/04/22 10/09/22 History tablet,extended release omeprazole 40 mg capsule,delayed 40 mg PO DAILY@0630 08/04/22 10/09/22 History release Allergies Allergy/AdvReac Type Severity Reaction Status Date / Time prednisone [PREDNISONE] AdvReac Intermediate Psychosis Verified 08/28/22 08:37 Exam Vital signs: Vital Signs Temp 97.9 F 12/04/22 08:13 Pulse 92 12/04/22 08:13 Resp 18 12/04/22 08:13 BP 117/68 12/04/22 08:13 Pulse Ox 93 12/04/22 08:13 O2 Del Method Room Air 12/04/22 08:13 Weight 66.9 kg BMI result Body Mass Index 20.5 - Constitutional Present: no acute distress - Routine HEENT Exam Head: Present: normal inspection - Routine Neck Exam Present: full ROM. Absent: lymphadenopathy - Routine Respiratory Exam Present: CTAB - Routine Cardiovascular Exam Cardiovascular: Present: RRR, S1, S2 - Routine Abdominal Exam Present: normal bowel sounds, soft. Absent: mass, organomegaly - Routine Extremities Exam Present: full ROM. Absent: calf tenderness, pedal edema - Routine Skin Exam Present: intact. Absent: cyanosis, erythema - Routine Neurological Exam Present: alert, oriented X3 Data - Labs CBC & Chem 7: 12/11/22 08:30 12/04/22 08:40 Assessment and Plan Patient Active problem list reviewed?: Yes (1) Colon cancer metastasized to liver Status: Inactive Assessment and plan: 1. This is a 62-year-old gentleman, with metastatic colon carcinoma, with liver and lung metastases. Biopsy of the liver lesion, Moderately differentiated adenocarcinoma. KRAS and BRAF negative. NRAS negative, MSI proficient or MSI stable. HER2 and panTRK negative. Initial CEA elevated at 91. He developed bowel obstruction, palliative bypass ileostomy has been performed in November 2018. He started on mFOLFOX/Avastin regimen from 11/27/2018. His last treatment cycle 13 was on 05/14/2019. He was on maintenance Xeloda 1500 mg p.o. b.i.d. 2 weeks on/1 week off, along with bevacizumab Q 3 weeks starting 10/22/2019 until 12/13/2020. Rising CEA as well as imaging in November 2020 showed evidence of progressive disease. He started irinotecan with bevacizumab from December 2020 until 07/2022. CT chest/ abdomen and pelvis in July 2022 showed progression in lung nodules. CEA penelope to 18.8 NG/mL. Treatment was changed to FOLFIRI Avastin. 2. 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 He has been tapered off prednisone and CellCept. He is also off the oxygen. 3. Chronic arthralgias. He is on MSContin 30 mg b.i.d. He is on oxycodone 5 mg for breakthrough pain 2 to 3 times a day. He has right-sided low back pain, probably muscular. 4. Intermittent elevation of bilirubin, indirect bilirubinemia, probable Gilbert's syndrome. 5. Diarrhea related to chemotherapy. He was advised to increase frequency of Imodium to after every bowel movement. He was advised that it was safe to take 4-6 Imodium's a day. Chemotherapy was postponed last week because of neutropenia. Counts have improved, proceed with treatment today. Follow-up in 6 weeks. - Time Spent With Patient Time Spent with Patient (in minutes): 15
[2022-12-11 08:36] VITALS: BP 119/65; PULSE 89; RESP 18; TEMP 36.4; O2SAT 95; BMI 20.5
[2022-12-11 08:56] LABS: MANUAL DIFF FLAG NO
[2022-12-11 08:59] LABS: Basophils Percent Auto 0.8 % (0-2); Eosinophils Absolute Auto 0.2 X10*3/uL (0.0-0.4); Eosinophils Percent Auto 4.3 % (0-4); Hematocrit 39.2 % (42.0-52.0); Hemoglobin 12.6 g/dl (14.0-18.0); Imm Gran Abs Auto 0.06 X10*3/uL (0.00-0.03); Imm Gran Pct Auto 1.2 % (0.0-0.4); Lymphocytes Percent Auto 19.7 % (20-40); Mean Corpuscular HGB Conc 32.1 g/dl (31.0-36.0); Mean Corpuscular Hemoglobin 30.2 pg (27.0-33.0); Mean Platelet Volume 11.9 fL (9.4-12.4); Monocytes Absolute Auto 0.8 X10*3/uL (0.1-1.2); Monocytes Percent Auto 15.4 % (2-11); Neutrophils Percent Auto 58.6 % (45-73); Platelet Count 162 X10*3/uL (160-400); Red Blood Count 4.17 X10*6/uL (4.60-5.80); Red Cell Distribution Width 16.4 % (11.0-16.0); White Blood Count 5.1 X10*3/uL (4.8-10.8)
[2022-12-11 09:00] LABS: Appearance Urine Clear; Color Urine Yellow; Glucose Urine UA Negative (Negative); Leukocyte Esterase Urine Negative (Negative); Nitrite Urine Negative (Negative); PH 5.5 (5.0-9.0); Urine Blood Negative (Negative); Urine Ketones Negative (Negative); Urine Protein Negative (Neg-Trace)
[2022-12-11 10:09] LABS: Alanine Aminotransferase 23 U/L (0-40); Albumin Level 3.5 g/dL (3.5-5.0); Alkaline Phosphatase 87 U/L (39-117); Anion Gap 13 (12-20); Aspartate Amino Transferase 38 U/L (5-37); Bilirubin Total 1.1 mg/dL (0.0-1.0); Blood Urea Nitrogen 8 mg/dL (9-16); Calcium 8.8 mg/dL (8.4-10.2); Carbon Dioxide 22 mmol/L (22-29); Chloride 106 mmol/L (96-108); Creatinine Clr Calc Pharmacy 91.5; Estimated Glomerular Filt Rate > 60; Potassium 4.5 mmol/L (3.3-5.1); Sodium 136 mmol/L (135-145); Total Protein 5.9 g/dL (6.5-8.0)
--- NOTE | 2022-12-11 10:09 | MHC.HEMONCSW ---
Pt's , Selena came in to ask about the Health Care Proxy. She indicated they do not have one, but would like top fill one out. SW provided a copy and she indicated she will bring it back.
[2022-12-11] MEDS: Acetaminophen 325 MG TABLET 650 MG PO (10:16)
[2022-12-11] MEDS: dexAMETHasone sod phosphate/NS 12 MG/50 ML PIGGYBACK 200 MG IV (10:16)
[2022-12-11] MEDS: diphenhydrAMINE HCL 25 MG CAPSULE PO (10:16)
[2022-12-11] MEDS: Fosaprepitant Dimeglumine 150 MG in 0.9 % Sodium Chloride 145 ML 300 MG IV (10:38)
[2022-12-11 11:29] LABS: Glucose Random 107 mg/dL (60-115)
[2022-12-11] MEDS: Atropine Sulfate 1 MG/ML VIAL 0.5 MG SUBCUT (11:40)
[2022-12-11] MEDS: SODIUM CHLORIDE 0.9% IV ×2 (11:40→14:28)
[2022-12-11] MEDS: BEVACIZUMAB IV (11:40)
[2022-12-11] MEDS: LEUCOVORIN CALCIUM IV (12:36)
[2022-12-11] MEDS: DEXTROSE 5% IV ×2 (12:36→12:37)
[2022-12-11] MEDS: IRINOTECAN HCL IV (12:37)
[2022-12-11] MEDS: FLUOROURACIL 138 MG IVPUSH (14:27)
[2022-12-11] MEDS: FLUOROURACIL IV (14:28)
[2022-12-13] MEDS: Heparin Sodium,Porcine Flush 500 UNIT/5 ML SYRINGE IVFLUSH (11:32)
--- NOTE | 2022-12-13 16:32 | MHC.HEMONC ---
Pump take down- confirmed reservoir volume zero. No complaints at this time. Port flushed with Heparin and de-accessed. Neulasta 6mg administered to left upper arm and well tolerated. Patient to return in 2 weeks for next cycle.
--- NOTE | 2022-12-21 10:41 | MHC.HEMONC ---
Pt called triage line for refill Morphine 30mg and oxycodone 5mg. [place] text sent to Dr Mckee. She will refill. Patient notified.
[2022-12-25 07:57] VITALS: BP 154/64; PULSE 91; RESP 18; TEMP 36.3; O2SAT 92; BMI 20.7
[2022-12-25 08:26] VITALS: PULSE 82; O2SAT 95
[2022-12-25 08:26] LABS: MANUAL DIFF FLAG NO
[2022-12-25 08:35] LABS: Basophils Absolute Auto 0.1 X10*3/uL (0.0-0.2); Basophils Percent Auto 0.6 % (0-2); Eosinophils Absolute Auto 0.2 X10*3/uL (0.0-0.4); Eosinophils Percent Auto 1.8 % (0-4); Hematocrit 39.7 % (42.0-52.0); Hemoglobin 12.9 g/dl (14.0-18.0); Imm Gran Abs Auto 0.08 X10*3/uL (0.00-0.03); Imm Gran Pct Auto 0.9 % (0.0-0.4); Lymphocytes Absolute Auto 0.9 X10*3/uL (1.2-4.9); Lymphocytes Percent Auto 10.6 % (20-40); Mean Corpuscular HGB Conc 32.5 g/dl (31.0-36.0); Mean Corpuscular Hemoglobin 30.1 pg (27.0-33.0); Mean Corpuscular Volume 92.5 fL (80.0-98.0); Mean Platelet Volume 12.3 fL (9.4-12.4); Monocytes Absolute Auto 0.5 X10*3/uL (0.1-1.2); Monocytes Percent Auto 5.9 % (2-11); Neutrophils Absolute Auto 6.8 x10*3/uL (2.0-8.3); Neutrophils Percent Auto 80.2 % (45-73); Red Blood Count 4.29 X10*6/uL (4.60-5.80); Red Cell Distribution Width 17.2 % (11.0-16.0); White Blood Count 8.5 X10*3/uL (4.8-10.8)
[2022-12-25 08:38] LABS: Appearance Urine Clear; Color Urine Dark Yellow; Glucose Urine UA Negative (Negative); Leukocyte Esterase Urine Negative (Negative); Nitrite Urine Negative (Negative); PH 5.5 (5.0-9.0); Specific Gravity - Urine >= 1.030 (1.005-1.025); Urine Blood Negative (Negative); Urine Ketones Trace mg/dL (Negative); Urine Protein Trace mg/dL (Neg-Trace)
[2022-12-25 08:51] LABS: Alanine Aminotransferase 31 U/L (0-40); Albumin Level 3.4 g/dL (3.5-5.0); Alkaline Phosphatase 99 U/L (39-117); Anion Gap 10 (12-20); Aspartate Amino Transferase 36 U/L (5-37); Blood Urea Nitrogen 10 mg/dL (9-16); Calcium 8.7 mg/dL (8.4-10.2); Carbon Dioxide 26 mmol/L (22-29); Chloride 106 mmol/L (96-108); Creatinine Clr Calc Pharmacy 91.2; Estimated Glomerular Filt Rate > 60; Glucose Random 125 mg/dL (60-115); Sodium 138 mmol/L (135-145); Total Protein 5.7 g/dL (6.5-8.0)
[2022-12-25 09:13] LABS: Platelet Count 81 X10*3/uL (160-400)
[2022-12-25] MEDS: Acetaminophen 325 MG TABLET 650 MG PO (09:46)
[2022-12-25] MEDS: diphenhydrAMINE HCL 25 MG CAPSULE PO (09:47)
[2022-12-25] MEDS: dexAMETHasone sod phosphate/NS 12 MG/50 ML PIGGYBACK 200 MG IV (09:48)
[2022-12-25] MEDS: BEVACIZUMAB IV (10:39)
[2022-12-25] MEDS: SODIUM CHLORIDE 0.9% IV ×2 (10:39→13:06)
[2022-12-25] MEDS: DEXTROSE 5% IV (11:23)
[2022-12-25] MEDS: LEUCOVORIN CALCIUM IV (11:23)
[2022-12-25] MEDS: FLUOROURACIL 138 MG IVPUSH (13:04)
[2022-12-25] MEDS: FLUOROURACIL IV (13:06)
--- NOTE | 2022-12-25 14:09 | MHC.HEMONC ---
Pt here for C9D1 Folfuri/Avastin. Pt amb to tx room 3. Pt continues to have some diarrhea controlled with medications, tingling in hands decreased, feet unchanged. Occasional nausea controlled with zofran. Port to right chest accessed, good blood return. Labs drawn and results reviewed with Dr friend. PLT 81. Pharmacy consulted per Dr Friend for NCCN recomendations. Irinotecan held for PLT <100. Pre meds given Dex 16mg IV, Zofran 12mg IV, Benadryl 25mg po, Tylenol 650mg po. Emend,Atropine and Irinotecan held today. Avastin, Leucovorin infused. 5FU push given and home with 5FU pump. Pt to return on Sunday for pump take down and Neulasta. Pt departed.
[2022-12-27 11:15] VITALS: BP 99/61; PULSE 65; RESP 17; TEMP 36.2; O2SAT 95
[2022-12-27] MEDS: Heparin Sodium,Porcine Flush 500 UNIT/5 ML SYRINGE IVFLUSH (11:17)
--- NOTE | 2022-12-27 16:36 | MHC.HEMONC ---
Pt was in for pump takedown and Neulasta injection, nurse nnoted that no PA is required for Neulasta. Pt's VSS, nurse checked that 46 hour infusion was completed on take-home pump, nurse flushed R chest port w/ NS, confirmed blood return, flushed w/ heparin 500 units, then de-accessed pump. Nurse admin Neulasta 6mg SC to pt's LUE, which was well-tolerated. Pt departed, to return in 2 weeks for next tx cycle.
[2023-01-09 08:26] VITALS: BP 109/58; PULSE 69; TEMP 36.1; O2SAT 95; BMI 20.9
[2023-01-09 08:26] LABS: Appearance Urine Clear; Basophils Percent Auto 0.6 % (0-2); Color Urine Yellow; Glucose Urine UA Negative (Negative); Hemoglobin 12.1 g/dl (14.0-18.0); Leukocyte Esterase Urine Negative (Negative); Mean Corpuscular Volume 94.2 fL (80.0-98.0); Monocytes Absolute Auto 0.7 X10*3/uL (0.1-1.2); Monocytes Percent Auto 9.6 % (2-11); Nitrite Urine Negative (Negative); PH 5.5 (5.0-9.0); PLT CLUMP 1; SCAN SMEAR FLAG 1; Specific Gravity - Urine 1.015 (1.005-1.025); Urine Blood Negative (Negative); Urine Ketones Negative (Negative); Urine Protein Negative (Neg-Trace)
[2023-01-09 08:28] LABS: Eosinophils Absolute Auto 0.2 X10*3/uL (0.0-0.4); Eosinophils Percent Auto 2.1 % (0-4); Hematocrit 37.3 % (42.0-52.0); Imm Gran Abs Auto 0.05 X10*3/uL (0.00-0.03); Imm Gran Pct Auto 0.7 % (0.0-0.4); Lymphocytes Absolute Auto 0.8 X10*3/uL (1.2-4.9); Lymphocytes Percent Auto 10.8 % (20-40); Mean Corpuscular HGB Conc 32.4 g/dl (31.0-36.0); Mean Corpuscular Hemoglobin 30.6 pg (27.0-33.0); Neutrophils Absolute Auto 5.3 x10*3/uL (2.0-8.3); Neutrophils Percent Auto 76.2 % (45-73); Red Blood Count 3.96 X10*6/uL (4.60-5.80); Red Cell Distribution Width 18.7 % (11.0-16.0)
[2023-01-09 08:33] LABS: MANUAL DIFF FLAG NO; Platelet Count 94 X10*3/uL (160-400)
[2023-01-09 08:42] LABS: Alanine Aminotransferase 25 U/L (0-40); Albumin Level 3.5 g/dL (3.5-5.0); Alkaline Phosphatase 114 U/L (39-117); Anion Gap 11 (12-20); Aspartate Amino Transferase 35 U/L (5-37); Bilirubin Total 1.8 mg/dL (0.0-1.0); Blood Urea Nitrogen 12 mg/dL (9-16); Calcium 8.9 mg/dL (8.4-10.2); Carbon Dioxide 23 mmol/L (22-29); Chloride 108 mmol/L (96-108); Creatinine Clr Calc Pharmacy 88.6; Estimated Glomerular Filt Rate > 60; Glucose Random 105 mg/dL (60-115); Potassium 4.1 mmol/L (3.3-5.1); Sodium 138 mmol/L (135-145); Total Protein 5.8 g/dL (6.5-8.0)
[2023-01-09] MEDS: Atropine Sulfate 1 MG/ML VIAL 0.5 MG SUBCUT (09:09)
[2023-01-09] MEDS: diphenhydrAMINE HCL 25 MG CAPSULE PO (09:09)
[2023-01-09] MEDS: Acetaminophen 325 MG TABLET 650 MG PO (09:09)
[2023-01-09] MEDS: dexAMETHasone sod phosphate/NS 12 MG/50 ML PIGGYBACK 200 MG IV (09:28)
[2023-01-09] MEDS: Fosaprepitant Dimeglumine 150 MG in 0.9 % Sodium Chloride 145 ML 300 MG IV (10:09)
[2023-01-09] MEDS: BEVACIZUMAB IV (10:49)
[2023-01-09] MEDS: SODIUM CHLORIDE 0.9% IV ×2 (10:49→15:30)
[2023-01-09] MEDS: DEXTROSE 5% IV ×2 (13:02→13:13)
[2023-01-09] MEDS: IRINOTECAN HCL IV (13:02)
[2023-01-09] MEDS: LEUCOVORIN CALCIUM IV (13:13)
--- NOTE | 2023-01-09 14:15 | MHC.HEMONC ---
Here for c10 avastin/folfiri. Labs drawn and reviewed by raquel Steiner to proceed today despite low platelet count. Premeds and chemo (85%) tolerated well. Pt aware of next appt, discharge packet provided.
[2023-01-09] MEDS: FLUOROURACIL 138 MG IVPUSH (15:30)
[2023-01-09] MEDS: FLUOROURACIL IV (15:30)
[2023-01-11 13:04] VITALS: BP 113/59; PULSE 64; RESP 18; TEMP 36.2; O2SAT 95; BMI 20.7
[2023-01-11] MEDS: Heparin Sodium,Porcine Flush 500 UNIT/5 ML SYRINGE IVFLUSH (13:14)
--- NOTE | 2023-01-11 15:34 | MHC.HEMONC ---
Pt here for chemo pump take down. Port flushed with heparin and de accessed. Neulasta SC given in right arm-tolerated well. Pt aware of next appointment
[2023-01-22 08:31] VITALS: BP 95/55; PULSE 79; RESP 18; TEMP 36.6; O2SAT 95; BMI 21.1
[2023-01-22 08:33] LABS: MANUAL DIFF FLAG NO
[2023-01-22 08:34] LABS: Basophils Percent Auto 0.6 % (0-2); Eosinophils Absolute Auto 0.2 X10*3/uL (0.0-0.4); Eosinophils Percent Auto 3.3 % (0-4); Hemoglobin 11.6 g/dl (14.0-18.0); Imm Gran Abs Auto 0.13 X10*3/uL (0.00-0.03); Imm Gran Pct Auto 1.9 % (0.0-0.4); Lymphocytes Percent Auto 14.8 % (20-40); Mean Corpuscular HGB Conc 32.2 g/dl (31.0-36.0); Mean Corpuscular Volume 96.3 fL (80.0-98.0); Mean Platelet Volume 12.2 fL (9.4-12.4); Monocytes Absolute Auto 0.5 X10*3/uL (0.1-1.2); Monocytes Percent Auto 7.4 % (2-11); Red Blood Count 3.74 X10*6/uL (4.60-5.80); Red Cell Distribution Width 18.9 % (11.0-16.0); White Blood Count 6.9 X10*3/uL (4.8-10.8)
[2023-01-22 08:35] LABS: Appearance Urine Clear; Color Urine Yellow; Glucose Urine UA Negative (Negative); Leukocyte Esterase Urine Negative (Negative); Nitrite Urine Negative (Negative); PH 5.5 (5.0-9.0); Urine Blood Negative (Negative); Urine Ketones Negative (Negative); Urine Protein Negative (Neg-Trace)
[2023-01-22 08:38] LABS: Platelet Count 97 X10*3/uL (160-400)
[2023-01-22 08:47] LABS: Alanine Aminotransferase 23 U/L (0-40); Albumin Level 3.3 g/dL (3.5-5.0); Alkaline Phosphatase 112 U/L (39-117); Anion Gap 12 (12-20); Aspartate Amino Transferase 33 U/L (5-37); Bilirubin Total 0.8 mg/dL (0.0-1.0); Blood Urea Nitrogen 6 mg/dL (9-16); Calcium 8.5 mg/dL (8.4-10.2); Carbon Dioxide 24 mmol/L (22-29); Chloride 106 mmol/L (96-108); Creatinine Clr Calc Pharmacy 89.3; Estimated Glomerular Filt Rate > 60; Glucose Random 121 mg/dL (60-115); Potassium 4.6 mmol/L (3.3-5.1); Sodium 137 mmol/L (135-145); Total Protein 5.3 g/dL (6.5-8.0)
[2023-01-22] MEDS: Acetaminophen 325 MG TABLET 650 MG PO (09:23)
[2023-01-22] MEDS: dexAMETHasone sod phosphate/NS 12 MG/50 ML PIGGYBACK 200 MG IV (09:23)
[2023-01-22] MEDS: diphenhydrAMINE HCL 25 MG CAPSULE PO (09:23)
[2023-01-22] MEDS: Fosaprepitant Dimeglumine 150 MG in 0.9 % Sodium Chloride 145 ML 300 MG IV (10:07)
[2023-01-22] MEDS: BEVACIZUMAB IV (10:46)
[2023-01-22] MEDS: SODIUM CHLORIDE 0.9% IV ×2 (10:46→13:21)
[2023-01-22] MEDS: Atropine Sulfate 1 MG/ML VIAL 0.5 MG SUBCUT (10:54)
[2023-01-22] MEDS: LEUCOVORIN CALCIUM IV (11:34)
[2023-01-22] MEDS: DEXTROSE 5% IV ×2 (11:34→11:43)
[2023-01-22] MEDS: IRINOTECAN HCL IV (11:43)
[2023-01-22] MEDS: FLUOROURACIL 138 MG IVPUSH (13:16)
[2023-01-22] MEDS: FLUOROURACIL IV (13:21)
[2023-01-22 13:36] VITALS: BP 104/55; PULSE 72; RESP 17
--- NOTE | 2023-01-22 14:16 | MHC.HEMONC ---
C11D1: FOLFIRI + AVASTIN. Patient reports feeling well. VSS. Port accessed to right chest without difficulty- labs obtained and reviewed. UA negative. No new side effects reported. Pre-medicated with Tylenol 650mg PO, Dex 12mg IV, Zofran 16mg IV, and Emend 150mg IV. Atropine 0.5mg s/c administered to right upper arm. Infusions well tolerated- 5FU bolus and pump administered. Discharge packet provided. Patient to return on Sunday for pump take down and Neulasta. Declilned discharge packet.
[2023-01-24 10:42] VITALS: BP 120/59; PULSE 84; RESP 18; TEMP 37.2; O2SAT 92; BMI 21.2
[2023-01-24] MEDS: Heparin Sodium,Porcine Flush 500 UNIT/5 ML SYRINGE IVFLUSH (10:52)
--- NOTE | 2023-01-24 15:30 | MHC.HEMONC ---
Chemo pump disconnect- confirmed reservoir volume zero. Port flushed with heparin and de accessed. Neulasta 6mg SC given in left arm-tolerated well. Pt aware of next appointment- declined discharge packet.
[2023-02-05 08:14] VITALS: BP 97/56; PULSE 83; RESP 18; TEMP 36.3; O2SAT 94; BMI 20.9
[2023-02-05 08:26] LABS: MANUAL DIFF FLAG NO
[2023-02-05 08:30] LABS: Appearance Urine Clear; Color Urine Yellow; Glucose Urine UA Negative (Negative); Leukocyte Esterase Urine Negative (Negative); Nitrite Urine Negative (Negative); PH 5.5 (5.0-9.0); Specific Gravity - Urine 1.025 (1.005-1.025); Urine Blood Negative (Negative); Urine Ketones Negative (Negative); Urine Protein Negative (Neg-Trace)
[2023-02-05 08:32] LABS: Basophils Absolute Auto 0.1 X10*3/uL (0.0-0.2); Basophils Percent Auto 0.8 % (0-2); Eosinophils Absolute Auto 0.1 X10*3/uL (0.0-0.4); Eosinophils Percent Auto 1.2 % (0-4); Hematocrit 38.2 % (42.0-52.0); Hemoglobin 12.2 g/dl (14.0-18.0); Imm Gran Abs Auto 0.12 X10*3/uL (0.00-0.03); Imm Gran Pct Auto 1.7 % (0.0-0.4); Lymphocytes Percent Auto 13.2 % (20-40); Mean Corpuscular HGB Conc 31.9 g/dl (31.0-36.0); Mean Corpuscular Hemoglobin 30.7 pg (27.0-33.0); Mean Platelet Volume 11.6 fL (9.4-12.4); Monocytes Absolute Auto 0.6 X10*3/uL (0.1-1.2); Neutrophils Absolute Auto 5.4 x10*3/uL (2.0-8.3); Neutrophils Percent Auto 75.1 % (45-73); Platelet Count 101 X10*3/uL (160-400); Red Blood Count 3.98 X10*6/uL (4.60-5.80); Red Cell Distribution Width 18.6 % (11.0-16.0); White Blood Count 7.3 X10*3/uL (4.8-10.8)
--- NOTE | 2023-02-05 08:32 | PM.HEMONCPN ---
Medical Summary - Medical Summary Date of Service: 02/05/23 Chief complaint: Follow-up and scheduled treatment Primary Care Provider: Jono Headley MD Medical Summary: Metastatic colon cancer diagnosed in October 2018. Presented with abdominal pain, 30 pound weight loss and severe pain. He had abnormal colonoscopy in 2009. He was told he needed a repeat colonoscopy in 5 years but he did not go for testing. CT abdomen/pelvis with IV contrast shows multiple areas of wall thickening in the sigmoid colon as well as thickening and enhancement of cecum, terminal ileum. Long segment of wall thickening of the distal transverse colon and left colon. Enlarged mesenteric and retroperitoneal lymph nodes, multiple liver metastasis and lung metastasis, all of these worrisome for metastatic colorectal malignancy. 11/01/18-Core biopsy of the right liver mass, moderately differentiated adenocarcinoma consistent with colorectal primary. KRAS mutation not detected BRAF mutation not detected. NRAS negative, MSI proficient or MSI stable. He developed bowel obstruction, palliative bypass ileostomy has been performed in November 2018. He started on mFOLFOX/Avastin regimen from 11/27/2018. His last treatment cycle 13 was on 05/14/2019. 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 Repeat CT abdomen/pelvis on 09/18/2019 showed further decrease in size of liver metastasis. He was on maintenance Xeloda 1500 mg p.o. b.i.d. 2 weeks on/1 week off, along with bevacizumab Q 3 weeks starting 10/22/2019 until 12/13/2020. Rising CEA as well as imaging in November 2020 showed evidence of progressive disease. He started irinotecan with bevacizumab from December 2020. Interval History Interval history: Patient is here in follow-up and scheduled treatment. He is doing fairly well. Apart from chronic fatigue he has no new complaints today. He has had dental work done and has no issues at this time. He denies nausea or emesis. No significant diarrhea and denies abdominal discomfort. No fever or chills. Review of Systems - Constitutional Reports as per HPI, Denies fatigue, Denies malaise, Denies night sweats, Denies poor appetite, Denies weight loss - Cardiovascular Reports no additional cardiovascular complaints - Respiratory Reports no additional respiratory complaints [facility] Medical History: Medical History (Last Updated 08/28/22 @ 09:09 by Sheree Mckee MD) Chronic respiratory failure Colon cancer metastasized to liver Colon cancer metastasized to liver ILD (interstitial lung disease) Pulmonary fibrosis Pulmonary nodule Tubular adenoma Family History: Family History (Last Reviewed 08/04/22 @ 20:56 by SANDRO Rob) Son Cystic fibrosis Brother Esophageal cancer Maternal Aunt Lung cancer Surgical History: Surgical History (Last Reviewed 08/04/22 @ 20:56 by SANDRO Rob) H/O knee surgery Social History: Social History (Last Reviewed 08/04/22 @ 20:56 by SANDRO Rob) Living Situation History: Household Members: Spouse Household Members: Children Substance Use History: Use of substances other than those prescribed or required for medical reasons: No Advance Directives: Advance Directives: Yes Advance Directives Information Provided: No Advance Directives on File: Yes Advance Directives Date on File: 10/25/21 Nutrition Assessment: Recently lost weight without trying: No Occupation Assessmet: service: No Current occupational status: employed Current occupation: [employer] 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 Performance Status ECOG Performance Status: 1 Home Medications and Allergies Current Medications: Current Medications Acetaminophen (Acetaminophen 325 Mg Tablet) 650 mg PO ONCE PINEDA Stop: 02/05/23 23:59 Atropine Sulfate (Atropine Sulfate 1 Mg/Ml Vial) 0.5 mg SUBCUT ONCE PINEDA Stop: 02/05/23 23:59 Diphenhydramine HCl (Diphenhydramine Hcl 25 Mg Capsule) 25 mg PO ONCE PINEDA Stop: 02/05/23 23:59 Irinotecan HCl 260 mg/ (Dextrose) 513 mls @ 342 mls/hr IV ONCE PINEDA Last Infusion: 11/20/22 13:37 Dose: Infused Irinotecan HCl 260 mg/ (Dextrose) 513 mls @ 342 mls/hr IV ONCE PINEDA Last Infusion: 12/11/22 14:07 Dose: Infused Irinotecan HCl 260 mg/ (Dextrose) 513 mls @ 342 mls/hr IV ONCE PINEDA Last Infusion: 01/22/23 13:13 Dose: Infused Dexamethasone Sodium Phosphate (Decadron) 12 mg in 50 mls @ 200 mls/hr IV ONCE PINEDA Stop: 02/05/23 23:59 Ondansetron HCl (Zofran) 16 mg in 50 mls @ 200 mls/hr IV ONCE PINEDA Stop: 02/05/23 23:59 Fosaprepitant 150 mg/ Sodium (Chloride) 150 mls @ 300 mls/hr IV ONCE PINEDA Stop: 02/05/23 23:59 Home Medications Medication Instructions Recorded Confirmed Type loperamide 2 mg capsule 2 mg PO BID PRN Diarrhea 05/19/20 02/05/23 History acetaminophen 650 mg 650 mg PO Q6H PRN Pain 08/04/22 02/05/23 History tablet,extended release omeprazole 40 mg capsule,delayed 40 mg PO DAILY@0630 08/04/22 02/05/23 History release Allergies Allergy/AdvReac Type Severity Reaction Status Date / Time prednisone [PREDNISONE] AdvReac Intermediate Psychosis Verified 08/28/22 08:37 Exam Vital signs: Vital Signs Temp 97.3 F 02/05/23 08:14 Pulse 83 02/05/23 08:14 Resp 18 02/05/23 08:14 BP 97/56 L 02/05/23 08:14 Pulse Ox 94 02/05/23 08:14 O2 Del Method Room Air 02/05/23 08:14 Intake & Output 02/04/23 02/05/23 02/05/23 18:59 06:59 18:59 Other: Weight 98.1 kg Weight in Grams 46416 Weight 98.1 kg BMI result Body Mass Index 30.2 - Constitutional Present: no acute distress - Routine HEENT Exam Head: Present: normal inspection - Routine Neck Exam Present: full ROM. Absent: lymphadenopathy - Routine Respiratory Exam Present: CTAB - Routine Cardiovascular Exam Cardiovascular: Present: RRR, S1, S2 - Routine Abdominal Exam Present: normal bowel sounds, soft. Absent: mass, organomegaly - Routine Extremities Exam Present: full ROM. Absent: calf tenderness, pedal edema - Routine Skin Exam Present: intact. Absent: cyanosis, erythema - Routine Neurological Exam Present: alert, oriented X3 Data - Labs CBC & Chem 7: 02/05/23 08:15 02/05/23 08:15 Assessment and Plan Patient Active problem list reviewed?: Yes (1) Colon cancer metastasized to liver Status: Inactive Assessment and plan: 1. This is a 62-year-old gentleman, with metastatic colon carcinoma, with liver and lung metastases. Biopsy of the liver lesion, Moderately differentiated adenocarcinoma. KRAS and BRAF negative. NRAS negative, MSI proficient or MSI stable. HER2 and panTRK negative. Initial CEA elevated at 91. He developed bowel obstruction, palliative bypass ileostomy has been performed in November 2018. He started on mFOLFOX/Avastin regimen from 11/27/2018. His last treatment cycle 13 was on 05/14/2019. He was on maintenance Xeloda 1500 mg p.o. b.i.d. 2 weeks on/1 week off, along with bevacizumab Q 3 weeks starting 10/22/2019 until 12/13/2020. Rising CEA as well as imaging in November 2020 showed evidence of progressive disease. He started irinotecan with bevacizumab from December 2020 until 07/2022. CT chest/ abdomen and pelvis in July 2022 showed progression in lung nodules. CEA penelope to 18.8 NG/mL. Treatment was changed to FOLFIRI Avastin. 2. 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 He has been tapered off prednisone and CellCept. He is also off the oxygen. 3. Chronic arthralgias. He is on MSContin 30 mg b.i.d. He is on oxycodone 5 mg for breakthrough pain 2 to 3 times a day. He has right-sided low back pain, probably muscular. 4. Intermittent elevation of bilirubin, indirect bilirubinemia, probable Gilbert's syndrome. 5. Diarrhea related to chemotherapy. He was advised to increase frequency of Imodium to after every bowel movement. He was advised that it was safe to take 4-6 Imodium's a day. Because of neutropenia, he has been receiving Neulasta with treatments more frequently now. Repeat CT chest/abdomen pelvis with IV contrast at this time to assess response to ongoing chemotherapy/treatment. Follow-up in 6 weeks. - Time Spent With Patient Time Spent with Patient (in minutes): 15
[2023-02-05 08:42] LABS: Alanine Aminotransferase 30 U/L (0-40); Albumin Level 3.5 g/dL (3.5-5.0); Alkaline Phosphatase 105 U/L (39-117); Anion Gap 9 (12-20); Aspartate Amino Transferase 45 U/L (5-37); Bilirubin Total 0.9 mg/dL (0.0-1.0); Blood Urea Nitrogen 13 mg/dL (9-16); Calcium 9.2 mg/dL (8.4-10.2); Carbon Dioxide 26 mmol/L (22-29); Chloride 106 mmol/L (96-108); Creatinine Clr Calc Pharmacy 115.7; Estimated Glomerular Filt Rate > 60; Glucose Random 100 mg/dL (60-115); Potassium 4.4 mmol/L (3.3-5.1); Sodium 137 mmol/L (135-145); Total Protein 5.9 g/dL (6.5-8.0)
[2023-02-05] MEDS: Atropine Sulfate 1 MG/ML VIAL 0.5 MG SUBCUT (09:15)
[2023-02-05] MEDS: Acetaminophen 325 MG TABLET 650 MG PO (09:16)
[2023-02-05] MEDS: diphenhydrAMINE HCL 25 MG CAPSULE PO (09:16)
[2023-02-05] MEDS: dexAMETHasone sod phosphate/NS 12 MG/50 ML PIGGYBACK 200 MG IV (09:17)
[2023-02-05] MEDS: Fosaprepitant Dimeglumine 150 MG in 0.9 % Sodium Chloride 145 ML 300 MG IV (10:00)
[2023-02-05] MEDS: BEVACIZUMAB IV (10:32)
[2023-02-05] MEDS: SODIUM CHLORIDE 0.9% IV ×2 (10:32→13:29)
[2023-02-05] MEDS: DEXTROSE 5% IV ×2 (11:52→11:53)
[2023-02-05] MEDS: LEUCOVORIN CALCIUM IV (11:52)
[2023-02-05] MEDS: IRINOTECAN HCL IV (11:53)
[2023-02-05] MEDS: FLUOROURACIL 138 MG IVPUSH (13:28)
[2023-02-05] MEDS: FLUOROURACIL IV (13:29)
--- NOTE | 2023-02-05 15:19 | MHC.HEMONC ---
Pt here for C12 D1 Avastin/Folfiri. Port accessed with blood return noted. Labs drawn from port. Urine specimen and blood sample sent to lab. Pt states he continues with intermittent diarrhea which he takes imodium. Pt states he has had some dehydration over last 2 weeks-drinking pedialyte as needed. States numbness in hands and feet unchanged. Lab results reviewed-okay to receive treatment today. Avastin/Folfiri given as ordered-tolerated well. 5 Fu chemo home chemo pump attached. Next appointment scheduled-pt to return on February 07 for chemo pump take down. Discharge packet given. CT chest/abdomen/pelvis order printed and given to Marsha Love to facilitate.
--- NOTE | 2023-02-06 09:19 | HE.ONCSEC ---
Called pt to confirm appt, lvm.
[2023-02-07 11:45] VITALS: BP 108/56; PULSE 74; RESP 17; TEMP 36.3; O2SAT 95
[2023-02-07] MEDS: Heparin Sodium,Porcine Flush 500 UNIT/5 ML SYRINGE IVFLUSH (11:45)
--- NOTE | 2023-02-07 15:30 | MHC.HEMONC ---
Pt here for pump take down. Per Dr Mckee no neulasta today when asked for order. wants to see how he will do , continue to monitor WBC. Pt offers no complaints. Pt asking for refill oxycodone 5mg po. [place] texted request to Dr Mckee who responded ok. Pump verified at zero ml and disconnected. Port to right chest flushed with saline and heparin and de accessed. calendar given with next appointment. Pt departed.
--- NOTE | 2023-02-16 08:41 | HE.ONCSEC ---
LVM reminding pt of appt on 02/19/23
--- NOTE | 2023-02-16 13:55 | MHC.HEMONC ---
Nurse confirmed Dr. Mckee sent scrip for MS Contin 30mg Q12H to [facility] in [place], per pt's request.
[2023-02-19 08:20] VITALS: BP 113/56; PULSE 70; TEMP 36.2; O2SAT 94; BMI 21.1
[2023-02-19 08:22] LABS: MANUAL DIFF FLAG NO
[2023-02-19 08:24] LABS: Appearance Urine Clear; Color Urine Yellow; Glucose Urine UA Negative (Negative); Leukocyte Esterase Urine Negative (Negative); Nitrite Urine Negative (Negative); PH 5.5 (5.0-9.0); Urine Blood Negative (Negative); Urine Ketones Negative (Negative); Urine Protein Negative (Neg-Trace)
[2023-02-19 08:24] LABS: Basophils Absolute Auto 0.1 X10*3/uL (0.0-0.2); Basophils Percent Auto 1.6 % (0-2); Eosinophils Absolute Auto 0.2 X10*3/uL (0.0-0.4); Eosinophils Percent Auto 4.7 % (0-4); Hematocrit 36.5 % (42.0-52.0); Hemoglobin 11.5 g/dl (14.0-18.0); Imm Gran Abs Auto 0.02 X10*3/uL (0.00-0.03); Imm Gran Pct Auto 0.6 % (0.0-0.4); Lymphocytes Absolute Auto 0.9 X10*3/uL (1.2-4.9); Lymphocytes Percent Auto 26.6 % (20-40); Mean Corpuscular HGB Conc 31.5 g/dl (31.0-36.0); Mean Corpuscular Hemoglobin 30.5 pg (27.0-33.0); Mean Corpuscular Volume 96.8 fL (80.0-98.0); Mean Platelet Volume 11.6 fL (9.4-12.4); Monocytes Absolute Auto 0.5 X10*3/uL (0.1-1.2); Monocytes Percent Auto 14.7 % (2-11); Neutrophils Absolute Auto 1.7 x10*3/uL (2.0-8.3); Neutrophils Percent Auto 51.8 % (45-73); Platelet Count 135 X10*3/uL (160-400); Red Blood Count 3.77 X10*6/uL (4.60-5.80); Red Cell Distribution Width 17.6 % (11.0-16.0); White Blood Count 3.2 X10*3/uL (4.8-10.8)
[2023-02-19 08:42] LABS: Alanine Aminotransferase 24 U/L (0-40); Albumin Level 3.3 g/dL (3.5-5.0); Alkaline Phosphatase 80 U/L (39-117); Anion Gap 9 (12-20); Aspartate Amino Transferase 35 U/L (5-37); Bilirubin Total 1.2 mg/dL (0.0-1.0); Blood Urea Nitrogen 8 mg/dL (9-16); Calcium 8.8 mg/dL (8.4-10.2); Carbon Dioxide 24 mmol/L (22-29); Chloride 109 mmol/L (96-108); Creatinine Clr Calc Pharmacy 97.9; Estimated Glomerular Filt Rate > 60; Glucose Random 88 mg/dL (60-115); Magnesium 2.1 mg/dL (1.6-2.6); Potassium 4.4 mmol/L (3.3-5.1); Sodium 138 mmol/L (135-145); Total Protein 5.6 g/dL (6.5-8.0)
[2023-02-19] MEDS: SODIUM CHLORIDE 0.9% IV (10:36)
[2023-02-19] MEDS: BEVACIZUMAB IV (10:36)
[2023-02-19] MEDS: DEXTROSE 5% IV (11:38)
[2023-02-19] MEDS: IRINOTECAN HCL IV (11:38)
--- NOTE | 2023-02-19 15:38 | MHC.HEMONC ---
c13 avastin/folfiri today. labs and urine results reviewed, ok to proceed today. Looking and feeling well. Using imodium to control diarrhea with success. Pt aware of next appt, discharge packet provided.
[2023-02-21] MEDS: Heparin Sodium,Porcine Flush 500 UNIT/5 ML SYRINGE IVFLUSH (11:36)
--- NOTE | 2023-02-21 12:04 | MHC.HEMONC ---
Pt here for pump take down and neulasta. Pump taken down, port was flushed and neulasta given by Maria Luisa CARRILLO Pt offered no complaints. WBC 3.2, ANC 1.7. Pt departed.
[2023-03-05 08:08] VITALS: BP 106/54; PULSE 70; RESP 18; TEMP 36.1; O2SAT 94; BMI 21.2
[2023-03-05 08:34] LABS: MANUAL DIFF FLAG NO
[2023-03-05 08:37] LABS: Basophils Percent Auto 0.5 % (0-2); Eosinophils Absolute Auto 0.1 X10*3/uL (0.0-0.4); Eosinophils Percent Auto 1.7 % (0-4); Hematocrit 36.7 % (42.0-52.0); Hemoglobin 11.6 g/dl (14.0-18.0); Imm Gran Abs Auto 0.04 X10*3/uL (0.00-0.03); Imm Gran Pct Auto 0.5 % (0.0-0.4); Lymphocytes Absolute Auto 1.1 X10*3/uL (1.2-4.9); Lymphocytes Percent Auto 14.2 % (20-40); Mean Corpuscular HGB Conc 31.6 g/dl (31.0-36.0); Mean Corpuscular Hemoglobin 30.2 pg (27.0-33.0); Mean Corpuscular Volume 95.6 fL (80.0-98.0); Mean Platelet Volume 12.7 fL (9.4-12.4); Monocytes Absolute Auto 0.5 X10*3/uL (0.1-1.2); Monocytes Percent Auto 5.9 % (2-11); Neutrophils Absolute Auto 6.2 x10*3/uL (2.0-8.3); Neutrophils Percent Auto 77.2 % (45-73); Platelet Count 107 X10*3/uL (160-400); Red Blood Count 3.84 X10*6/uL (4.60-5.80); Red Cell Distribution Width 18.2 % (11.0-16.0)
[2023-03-05 08:41] LABS: Appearance Urine Clear; Color Urine Yellow; Glucose Urine UA Negative (Negative); Leukocyte Esterase Urine Negative (Negative); Nitrite Urine Negative (Negative); PH 5.5 (5.0-9.0); Urine Blood Negative (Negative); Urine Ketones Negative (Negative); Urine Protein Negative (Neg-Trace)
[2023-03-05 08:52] LABS: Alanine Aminotransferase 28 U/L (0-40); Albumin Level 3.3 g/dL (3.5-5.0); Alkaline Phosphatase 105 U/L (39-117); Anion Gap 11 (12-20); Aspartate Amino Transferase 39 U/L (5-37); Bilirubin Total 0.7 mg/dL (0.0-1.0); Blood Urea Nitrogen 11 mg/dL (9-16); Calcium 8.9 mg/dL (8.4-10.2); Carbon Dioxide 23 mmol/L (22-29); Chloride 107 mmol/L (96-108); Creatinine Clr Calc Pharmacy 89.6; Estimated Glomerular Filt Rate > 60; Glucose Random 108 mg/dL (60-115); Potassium 4.5 mmol/L (3.3-5.1); Sodium 136 mmol/L (135-145); Total Protein 5.7 g/dL (6.5-8.0)
[2023-03-05] MEDS: Acetaminophen 325 MG TABLET 650 MG PO (09:17)
[2023-03-05] MEDS: Atropine Sulfate 1 MG/ML VIAL 0.5 MG SUBCUT (09:18)
[2023-03-05] MEDS: diphenhydrAMINE HCL 25 MG CAPSULE PO (09:18)
[2023-03-05] MEDS: dexAMETHasone sod phosphate/NS 12 MG/50 ML PIGGYBACK 200 MG IV (09:19)
[2023-03-05] MEDS: Fosaprepitant Dimeglumine 150 MG in 0.9 % Sodium Chloride 145 ML 300 MG IV (09:50)
[2023-03-05] MEDS: SODIUM CHLORIDE 0.9% IV ×2 (11:02→13:44)
[2023-03-05] MEDS: BEVACIZUMAB IV (11:02)
[2023-03-05] MEDS: LEUCOVORIN CALCIUM IV (11:59)
[2023-03-05] MEDS: DEXTROSE 5% IV ×2 (11:59→12:00)
[2023-03-05] MEDS: IRINOTECAN HCL IV (12:00)
[2023-03-05] MEDS: FLUOROURACIL 138 MG IVPUSH (13:43)
[2023-03-05] MEDS: FLUOROURACIL IV (13:44)
--- NOTE | 2023-03-05 15:09 | MHC.HEMONC ---
Pt here for C14D1 Avastin/Folfiri. Pt states he continues with loose stools through his colostomy. Continues with fatigue and numbness in feet. Port accessed with blood return noted-labs drawn from port-specimen to lab. Lab results reviewed-okay to receive treatment today. Pre medicated with tylenol, Atropine sulfate 0.5mg SC, dexamethasone, benadryl, zofran, emend. Avastin/Folfiri given as ordered-tolerated well. Home chemo pump attached. Discharge packet given with next appointment scheduled. Pt reminded to take dexamethasone twice a day tomorrow and next day-verbalizes understanding of information given. Pt to return on Sunday03/07/23 for chemo pump take down
[2023-03-07 11:34] VITALS: BP 109/56; PULSE 78; RESP 18; TEMP 36.4; O2SAT 93
[2023-03-07] MEDS: Heparin Sodium,Porcine Flush 500 UNIT/5 ML SYRINGE IVFLUSH (11:36)
--- NOTE | 2023-03-07 17:21 | MHC.HEMONC ---
Pt tolerated treatment well. Verified volume of 0ml. Port flushed with heparin 500units and de-accessed. No neulasta given per Dr Mckee. Pt departed unit and is aware of next treatment.
--- NOTE | 2023-03-16 09:45 | MHC.HEMONC ---
Triage call-pt called for refill on long acting morphine 30mg-message left for Dr Mckee to refill
--- NOTE | 2023-03-19 08:20 | PM.HEMONCPN ---
Medical Summary - Medical Summary Date of Service: 03/19/23 Chief complaint: Follow-up Primary Care Provider: Jono Headley MD Medical Summary: Metastatic colon cancer diagnosed in October 2018. Presented with abdominal pain, 30 pound weight loss and severe pain. He had abnormal colonoscopy in 2009. He was told he needed a repeat colonoscopy in 5 years but he did not go for testing. CT abdomen/pelvis with IV contrast shows multiple areas of wall thickening in the sigmoid colon as well as thickening and enhancement of cecum, terminal ileum. Long segment of wall thickening of the distal transverse colon and left colon. Enlarged mesenteric and retroperitoneal lymph nodes, multiple liver metastasis and lung metastasis, all of these worrisome for metastatic colorectal malignancy. 11/01/18-Core biopsy of the right liver mass, moderately differentiated adenocarcinoma consistent with colorectal primary. KRAS mutation not detected BRAF mutation not detected. NRAS negative, MSI proficient or MSI stable. He developed bowel obstruction, palliative bypass ileostomy has been performed in November 2018. He started on mFOLFOX/Avastin regimen from 11/27/2018. His last treatment cycle 13 was on 05/14/2019. 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 Repeat CT abdomen/pelvis on 09/18/2019 showed further decrease in size of liver metastasis. He was on maintenance Xeloda 1500 mg p.o. b.i.d. 2 weeks on/1 week off, along with bevacizumab Q 3 weeks starting 10/22/2019 until 12/13/2020. Rising CEA as well as imaging in November 2020 showed evidence of progressive disease. He started irinotecan with bevacizumab from December 2020. Interval History Interval history: Patient is here in follow-up and scheduled treatment. He is doing fairly well. Apart from chronic fatigue he has no new complaints today. He has had dental work done and has no issues at this time. He denies nausea or emesis. No significant diarrhea and denies abdominal discomfort. No fever or chills. He had mouth sores briefly, that resolved now. He wants to know results of his scans. Review of Systems - Constitutional Reports as per HPI, Denies lack of energy, Denies weight loss - Respiratory Reports no additional respiratory complaints - Gastrointestinal Reports no additional gastrointestinal complaints - Genitourinary Genitourinary: Reports no additional male genitourinary complaints [facility] Medical History: Medical History (Last Updated 08/28/22 @ 09:09 by Sheree Mckee MD) Chronic respiratory failure Colon cancer metastasized to liver Colon cancer metastasized to liver ILD (interstitial lung disease) Pulmonary fibrosis Pulmonary nodule Tubular adenoma Family History: Family History (Last Reviewed 08/04/22 @ 20:56 by SANDRO Rob) Son Cystic fibrosis Brother Esophageal cancer Maternal Aunt Lung cancer Surgical History: Surgical History (Last Reviewed 08/04/22 @ 20:56 by SANDRO Rob) H/O knee surgery Social History: Social History (Last Reviewed 08/04/22 @ 20:56 by SANDRO oRb) Living Situation History: Household Members: Spouse Household Members: Children Substance Use History: Use of substances other than those prescribed or required for medical reasons: No Advance Directives: Advance Directives: Yes Advance Directives Information Provided: No Advance Directives on File: Yes Advance Directives Date on File: 10/25/21 Nutrition Assessment: Recently lost weight without trying: No Occupation Assessmet: service: No Current occupational status: employed Current occupation: [employer] Home Medications and Allergies Current Medications: Current Medications Acetaminophen (Acetaminophen 325 Mg Tablet) 650 mg PO ONCE PINEDA Stop: 03/19/23 23:59 Atropine Sulfate (Atropine Sulfate 1 Mg/Ml Vial) 0.5 mg SUBCUT ONCE PINEDA Stop: 03/19/23 23:59 Diphenhydramine HCl (Diphenhydramine Hcl 25 Mg Capsule) 25 mg PO ONCE PINEDA Stop: 03/19/23 23:59 Irinotecan HCl 260 mg/ (Dextrose) 513 mls @ 342 mls/hr IV ONCE PINEDA Last Infusion: 01/22/23 13:13 Dose: Infused Dexamethasone Sodium Phosphate (Decadron) 12 mg in 50 mls @ 200 mls/hr IV ONCE PINEDA Stop: 03/19/23 23:59 Ondansetron HCl (Zofran) 16 mg in 50 mls @ 200 mls/hr IV ONCE PINEDA Stop: 03/19/23 23:59 Fosaprepitant 150 mg/ Sodium (Chloride) 150 mls @ 300 mls/hr IV ONCE PINEDA Stop: 03/19/23 23:59 Home Medications Medication Instructions Recorded Confirmed Type loperamide 2 mg capsule 2 mg PO BID PRN Diarrhea 05/19/20 03/19/23 History acetaminophen 650 mg 650 mg PO Q6H PRN Pain 08/04/22 03/19/23 History tablet,extended release omeprazole 40 mg capsule,delayed 40 mg PO DAILY@0630 08/04/22 03/19/23 History release Allergies Allergy/AdvReac Type Severity Reaction Status Date / Time prednisone [PREDNISONE] AdvReac Intermediate Psychosis Verified 03/05/23 08:51 Exam Vital signs: Vital Signs Temp 97.5 F 03/07/23 11:34 Pulse 78 03/07/23 11:34 Resp 18 03/07/23 11:34 BP 109/56 L 03/07/23 11:34 Pulse Ox 93 03/07/23 11:34 O2 Del Method Room Air 03/07/23 11:34 Weight 68.8 kg BMI result Body Mass Index 21.2 - Constitutional Present: no acute distress - Routine HEENT Exam Head: Present: normal inspection - Routine Neck Exam Present: full ROM. Absent: lymphadenopathy - Routine Respiratory Exam Present: CTAB - Routine Cardiovascular Exam Cardiovascular: Present: RRR, S1, S2 - Routine Abdominal Exam Present: normal bowel sounds, soft. Absent: mass, organomegaly - Routine Extremities Exam Present: full ROM. Absent: calf tenderness, pedal edema - Routine Skin Exam Present: intact. Absent: cyanosis, erythema - Routine Neurological Exam Present: alert, oriented X3 Data - Labs CBC & Chem 7: 03/19/23 08:16 03/19/23 08:16 Assessment and Plan Patient Active problem list reviewed?: Yes (1) Colon cancer metastasized to liver Status: Inactive Assessment and plan: 1. This is a 62-year-old gentleman, with metastatic colon carcinoma, with liver and lung metastases. Biopsy of the liver lesion, Moderately differentiated adenocarcinoma. KRAS and BRAF negative. NRAS negative, MSI proficient or MSI stable. HER2 and panTRK negative. Initial CEA elevated at 91. He developed bowel obstruction, palliative bypass ileostomy has been performed in November 2018. He started on mFOLFOX/Avastin regimen from 11/27/2018. His last treatment cycle 13 was on 05/14/2019. He was on maintenance Xeloda 1500 mg p.o. b.i.d. 2 weeks on/1 week off, along with bevacizumab Q 3 weeks starting 10/22/2019 until 12/13/2020. Rising CEA as well as imaging in November 2020 showed evidence of progressive disease. He started irinotecan with bevacizumab from December 2020 until 07/2022. CT chest/ abdomen and pelvis in July 2022 showed progression in lung nodules. CEA penelope to 18.8 NG/mL. Treatment was changed to FOLFIRI Avastin. 2. 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 He has been tapered off prednisone and CellCept. He is also off the oxygen. 3. Chronic arthralgias. He is on MSContin 30 mg b.i.d. He is on oxycodone 5 mg for breakthrough pain 2 to 3 times a day. He has right-sided low back pain, probably muscular. 4. Intermittent elevation of bilirubin, indirect bilirubinemia, probable Gilbert's syndrome. 5. Diarrhea related to chemotherapy. He was advised to increase frequency of Imodium to after every bowel movement. He was advised that it was safe to take 4-6 Imodium's a day. Because of neutropenia, he has been receiving Neulasta with treatments more frequently now. Repeat CT chest/abdomen pelvis with IV contrast shows mild progression and bilateral lung nodules as well as a solitary liver lesion that has grown slightly in size. For now continue same treatment, monitor CEA levels. If it continues to rise, he will be switched to cetuximab with irinotecan. Follow-up in 6 weeks. - Time Spent With Patient Time Spent with Patient (in minutes): 15
[2023-03-19 08:56] LABS: MANUAL DIFF FLAG NO
[2023-03-19 08:58] LABS: Basophils Percent Auto 1.3 % (0-2); Eosinophils Absolute Auto 0.2 X10*3/uL (0.0-0.4); Hematocrit 36.2 % (42.0-52.0); Hemoglobin 11.8 g/dl (14.0-18.0); Imm Gran Abs Auto 0.01 X10*3/uL (0.00-0.03); Imm Gran Pct Auto 0.3 % (0.0-0.4); Lymphocytes Percent Auto 33.3 % (20-40); Mean Corpuscular HGB Conc 32.6 g/dl (31.0-36.0); Mean Corpuscular Hemoglobin 31.5 pg (27.0-33.0); Mean Corpuscular Volume 96.5 fL (80.0-98.0); Mean Platelet Volume 12.2 fL (9.4-12.4); Monocytes Absolute Auto 0.4 X10*3/uL (0.1-1.2); Monocytes Percent Auto 13.2 % (2-11); Neutrophils Absolute Auto 1.4 x10*3/uL (2.0-8.3); Neutrophils Percent Auto 46.9 % (45-73); Platelet Count 116 X10*3/uL (160-400); Red Blood Count 3.75 X10*6/uL (4.60-5.80); Red Cell Distribution Width 17.9 % (11.0-16.0)
[2023-03-19 09:01] LABS: Appearance Urine Clear; Color Urine Yellow; Glucose Urine UA Negative (Negative); Leukocyte Esterase Urine Negative (Negative); Nitrite Urine Negative (Negative); PH 5.5 (5.0-9.0); Urine Blood Negative (Negative); Urine Ketones Negative (Negative); Urine Protein Negative (Neg-Trace)
[2023-03-19 09:14] VITALS: BP 119/78; PULSE 97; RESP 18; TEMP 36.4; O2SAT 96; BMI 21.0
[2023-03-19 09:31] LABS: Alanine Aminotransferase 36 U/L (0-40); Albumin Level 3.5 g/dL (3.5-5.0); Alkaline Phosphatase 77 U/L (39-117); Anion Gap 13 (12-20); Aspartate Amino Transferase 44 U/L (5-37); Bilirubin Total 1.7 mg/dL (0.0-1.0); Blood Urea Nitrogen 9 mg/dL (9-16); Calcium 9.1 mg/dL (8.4-10.2); Carbon Dioxide 19 mmol/L (22-29); Chloride 107 mmol/L (96-108); Creatinine Clr Calc Pharmacy 83.9; Estimated Glomerular Filt Rate > 60; Glucose Random 101 mg/dL (60-115); Potassium 4.1 mmol/L (3.3-5.1); Sodium 135 mmol/L (135-145); Total Protein 5.9 g/dL (6.5-8.0)
[2023-03-19] MEDS: Acetaminophen 325 MG TABLET 650 MG PO (09:52)
[2023-03-19] MEDS: diphenhydrAMINE HCL 25 MG CAPSULE PO (09:53)
[2023-03-19] MEDS: Atropine Sulfate 1 MG/ML VIAL 0.5 MG SUBCUT (09:54)
[2023-03-19] MEDS: dexAMETHasone sod phosphate/NS 12 MG/50 ML PIGGYBACK 200 MG IV (09:54)
[2023-03-19] MEDS: Fosaprepitant Dimeglumine 150 MG in 0.9 % Sodium Chloride 145 ML 300 MG IV (10:06)
[2023-03-19] MEDS: SODIUM CHLORIDE 0.9% IV ×2 (11:15→14:05)
[2023-03-19] MEDS: BEVACIZUMAB IV (11:15)
[2023-03-19] MEDS: Loperamide HCl 2 MG CAPSULE 4 MG PO (12:04)
[2023-03-19] MEDS: IRINOTECAN HCL IV (12:14)
[2023-03-19] MEDS: DEXTROSE 5% IV ×2 (12:14→12:15)
[2023-03-19] MEDS: LEUCOVORIN CALCIUM IV (12:15)
[2023-03-19] MEDS: FLUOROURACIL 138 MG IVPUSH (14:04)
[2023-03-19] MEDS: FLUOROURACIL IV (14:05)
--- NOTE | 2023-03-19 15:50 | MHC.HEMONC ---
Pt here for C15D1 Avastin/Folfiri. Port accessed with blood return noted-labs drawn from port-specimen to lab. Urine specimen obtained-specimen to lab. Pt states he has been more fatigued lately and has had cold sores in corner of mouth for a few days. was moving into new home ad was stressed for the move. States he has had some loose stools today. Dr Mckee in room and notified. Imodium 4 mg given for loose stools per pt request. Lab results reviewed-okay to receive treatment today. Pre medicated with emend, tylenol, benadryl, zofran, dexamethasone. Avastin/Folfiri given as ordered-tolerated well. 5 FU home chemo pump attached as directed. Discharge packet given with next appointment scheduled. Pt to return on Sunday03/21/23 for chemo pump take down. Refill request for oxycodone 5mg given to Dr Mckee
[2023-03-21 11:37] VITALS: BP 112/56; PULSE 68; RESP 18; TEMP 36.4; O2SAT 96
[2023-03-21] MEDS: Heparin Sodium,Porcine Flush 500 UNIT/5 ML SYRINGE IVFLUSH (11:39)
--- NOTE | 2023-03-21 11:43 | MHC.HEMONC ---
VSS. Pt in for pump discontinue and Neulasta. Port flushed per protocol.
--- NOTE | 2023-03-30 15:17 | HE.ONCSEC ---
Called pt to confirm appt, lvm.
[2023-04-02 07:56] VITALS: BP 97/55; PULSE 66; RESP 18; TEMP 36.6; O2SAT 95; BMI 21.0
[2023-04-02 08:38] LABS: MANUAL DIFF FLAG NO
[2023-04-02 08:42] LABS: Basophils Absolute Auto 0.1 X10*3/uL (0.0-0.2); Basophils Percent Auto 0.7 % (0-2); Eosinophils Absolute Auto 0.1 X10*3/uL (0.0-0.4); Eosinophils Percent Auto 1.2 % (0-4); Hematocrit 36.8 % (42.0-52.0); Hemoglobin 11.5 g/dl (14.0-18.0); Imm Gran Abs Auto 0.06 X10*3/uL (0.00-0.03); Imm Gran Pct Auto 0.7 % (0.0-0.4); Lymphocytes Absolute Auto 1.1 X10*3/uL (1.2-4.9); Lymphocytes Percent Auto 13.4 % (20-40); Mean Corpuscular HGB Conc 31.3 g/dl (31.0-36.0); Mean Corpuscular Volume 99.2 fL (80.0-98.0); Mean Platelet Volume 12.2 fL (9.4-12.4); Monocytes Absolute Auto 0.4 X10*3/uL (0.1-1.2); Monocytes Percent Auto 5.1 % (2-11); Neutrophils Absolute Auto 6.5 x10*3/uL (2.0-8.3); Neutrophils Percent Auto 78.9 % (45-73); Red Blood Count 3.71 X10*6/uL (4.60-5.80); Red Cell Distribution Width 18.5 % (11.0-16.0); White Blood Count 8.2 X10*3/uL (4.8-10.8)
[2023-04-02 08:44] LABS: Platelet Count 99 X10*3/uL (160-400)
[2023-04-02 08:56] LABS: Alanine Aminotransferase 23 U/L (0-40); Albumin Level 3.1 g/dL (3.5-5.0); Alkaline Phosphatase 92 U/L (39-117); Anion Gap 10 (12-20); Aspartate Amino Transferase 36 U/L (5-37); Blood Urea Nitrogen 8 mg/dL (9-16); Carbon Dioxide 25 mmol/L (22-29); Chloride 108 mmol/L (96-108); Creatinine Clr Calc Pharmacy 86.9; Estimated Glomerular Filt Rate > 60; Glucose Random 109 mg/dL (60-115); Potassium 4.5 mmol/L (3.3-5.1); Sodium 138 mmol/L (135-145); Total Protein 5.3 g/dL (6.5-8.0)
[2023-04-02 08:58] LABS: Appearance Urine Clear; Color Urine Yellow; Glucose Urine UA Negative (Negative); Leukocyte Esterase Urine Negative (Negative); Nitrite Urine Negative (Negative); PH 5.5 (5.0-9.0); Urine Blood Negative (Negative); Urine Ketones Negative (Negative); Urine Protein Negative (Neg-Trace)
[2023-04-02] MEDS: Fosaprepitant Dimeglumine 150 MG in 0.9 % Sodium Chloride 145 ML 300 MG IV (09:53)
[2023-04-02] MEDS: dexAMETHasone sod phosphate/NS 12 MG/50 ML PIGGYBACK 200 MG IV (09:54)
[2023-04-02] MEDS: Acetaminophen 325 MG TABLET 650 MG PO (09:54)
[2023-04-02] MEDS: diphenhydrAMINE HCL 25 MG CAPSULE PO (09:55)
[2023-04-02] MEDS: Atropine Sulfate 1 MG/ML VIAL 0.5 MG SUBCUT (11:39)
[2023-04-02] MEDS: SODIUM CHLORIDE 0.9% IV ×2 (11:46→14:58)
[2023-04-02] MEDS: BEVACIZUMAB IV (11:46)
[2023-04-02] MEDS: LEUCOVORIN CALCIUM IV (12:43)
[2023-04-02] MEDS: DEXTROSE 5% IV ×2 (12:43→12:45)
[2023-04-02] MEDS: IRINOTECAN HCL IV (12:45)
[2023-04-02] MEDS: FLUOROURACIL 138 MG IVPUSH (14:55)
[2023-04-02] MEDS: FLUOROURACIL IV (14:58)
--- NOTE | 2023-04-02 16:58 | MHC.HEMONC ---
Pt here for C16D1 Avastin,Folfiri. Pt offers no complaints. Port to right chest accessed, able to get blood return but not enough to draw blood. Labs were drawn peripherally and reviewed. Pre meds were given and treatment infused. 5FU push given and Pt home with 5FU pump. Pt will return on for pump take down.
[2023-04-04] MEDS: Heparin Sodium,Porcine Flush 500 UNIT/5 ML SYRINGE IVFLUSH (14:23)
--- NOTE | 2023-04-04 16:42 | MHC.HEMONC ---
Pt here for pump take down. Pump taken down by Maria Luisa CARRILLO. Pt departed.
--- NOTE | 2023-04-12 09:55 | MHC.HEMONC ---
Triage line- pt called to request a Rx refill of morphine. request sent to Dr Mckee.
[2023-04-18 08:11] VITALS: BP 90/53; PULSE 70; RESP 18; TEMP 36.6; O2SAT 95; BMI 20.9
[2023-04-18 08:48] LABS: Basophils Percent Auto 0.5 % (0-2); Eosinophils Absolute Auto 0.1 X10*3/uL (0.0-0.4); Eosinophils Percent Auto 5.7 % (0-4); Hematocrit 34.7 % (42.0-52.0); Hemoglobin 11.1 g/dl (14.0-18.0); Imm Gran Abs Auto 0.01 X10*3/uL (0.00-0.03); Imm Gran Pct Auto 0.5 % (0.0-0.4); Lymphocytes Absolute Auto 0.9 X10*3/uL (1.2-4.9); Lymphocytes Percent Auto 40.8 % (20-40); MANUAL DIFF FLAG SCAN; Mean Corpuscular Hemoglobin 31.2 pg (27.0-33.0); Mean Corpuscular Volume 97.5 fL (80.0-98.0); Monocytes Absolute Auto 0.3 X10*3/uL (0.1-1.2); Monocytes Percent Auto 16.1 % (2-11); Neutrophils Absolute Auto 0.8 x10*3/uL (2.0-8.3); Neutrophils Percent Auto 36.4 % (45-73); Red Blood Count 3.56 X10*6/uL (4.60-5.80); Red Cell Distribution Width 17.9 % (11.0-16.0); SCAN SMEAR FLAG 1
[2023-04-18 08:49] LABS: Platelet Count 98 X10*3/uL (160-400); White Blood Count 2.1 X10*3/uL (4.8-10.8)
[2023-04-18 09:01] LABS: Appearance Urine Clear; Color Urine Yellow; Glucose Urine UA Negative (Negative); Leukocyte Esterase Urine Negative (Negative); Nitrite Urine Negative (Negative); PH 5.5 (5.0-9.0); Urine Blood Negative (Negative); Urine Ketones Negative (Negative); Urine Protein Negative (Neg-Trace)
[2023-04-18 09:01] LABS: Alanine Aminotransferase 25 U/L (0-40); Alkaline Phosphatase 88 U/L (39-117); Anion Gap 10 (12-20); Aspartate Amino Transferase 43 U/L (5-37); Blood Urea Nitrogen 8 mg/dL (9-16); Calcium 8.5 mg/dL (8.4-10.2); Carbon Dioxide 22 mmol/L (22-29); Chloride 108 mmol/L (96-108); Creatinine Clr Calc Pharmacy 90.8; Estimated Glomerular Filt Rate > 60; Glucose Random 142 mg/dL (60-115); Potassium 3.9 mmol/L (3.3-5.1); Sodium 136 mmol/L (135-145); Total Protein 5.2 g/dL (6.5-8.0)
[2023-04-18 09:35] LABS: SLIDE REVIEW VERIFIED
--- NOTE | 2023-04-18 10:18 | MHC.HEMONC ---
anc 0.[address] mallory delay treatment one week. cycle moved, pharm aware.
[2023-04-23 08:44] LABS: Basophils Percent Auto 0.9 % (0-2); Eosinophils Absolute Auto 0.1 X10*3/uL (0.0-0.4); Eosinophils Percent Auto 3.8 % (0-4); Hematocrit 40.5 % (42.0-52.0); Hemoglobin 13.3 g/dl (14.0-18.0); Imm Gran Abs Auto 0.03 X10*3/uL (0.00-0.03); Imm Gran Pct Auto 0.9 % (0.0-0.4); Lymphocytes Percent Auto 32.1 % (20-40); Mean Corpuscular HGB Conc 32.8 g/dl (31.0-36.0); Mean Corpuscular Hemoglobin 31.1 pg (27.0-33.0); Mean Corpuscular Volume 94.8 fL (80.0-98.0); Mean Platelet Volume 11.7 fL (9.4-12.4); Monocytes Absolute Auto 0.7 X10*3/uL (0.1-1.2); Neutrophils Absolute Auto 1.3 x10*3/uL (2.0-8.3); Neutrophils Percent Auto 40.3 % (45-73); Platelet Count 135 X10*3/uL (160-400); Red Blood Count 4.27 X10*6/uL (4.60-5.80); Red Cell Distribution Width 17.5 % (11.0-16.0); SCAN SMEAR FLAG 1; White Blood Count 3.2 X10*3/uL (4.8-10.8)
[2023-04-23 08:46] LABS: MANUAL DIFF FLAG NO
[2023-04-23 08:51] VITALS: BP 127/60; PULSE 68; RESP 18; TEMP 36.6; O2SAT 93; BMI 20.6
[2023-04-23 08:58] LABS: Alanine Aminotransferase 22 U/L (0-40); Albumin Level 3.4 g/dL (3.5-5.0); Alkaline Phosphatase 101 U/L (39-117); Anion Gap 12 (12-20); Aspartate Amino Transferase 41 U/L (5-37); Bilirubin Total 1.2 mg/dL (0.0-1.0); Blood Urea Nitrogen 9 mg/dL (9-16); Calcium 9.3 mg/dL (8.4-10.2); Carbon Dioxide 20 mmol/L (22-29); Chloride 110 mmol/L (96-108); Estimated Glomerular Filt Rate > 60; Glucose Random 107 mg/dL (60-115); Potassium 4.1 mmol/L (3.3-5.1); Sodium 138 mmol/L (135-145); Total Protein 6.4 g/dL (6.5-8.0)
[2023-04-23 09:42] LABS: Appearance Urine Clear; Color Urine Yellow; Glucose Urine UA Negative (Negative); Leukocyte Esterase Urine Negative (Negative); Nitrite Urine Negative (Negative); PH 5.5 (5.0-9.0); Specific Gravity - Urine 1.015 (1.005-1.025); Urine Blood Negative (Negative); Urine Ketones Negative (Negative); Urine Protein Negative (Neg-Trace)
[2023-04-23] MEDS: dexAMETHasone sod phosphate/NS 12 MG/50 ML PIGGYBACK 200 MG IV (10:06)
[2023-04-23] MEDS: Acetaminophen 325 MG TABLET 650 MG PO (10:06)
[2023-04-23] MEDS: diphenhydrAMINE HCL 25 MG CAPSULE PO (10:06)
[2023-04-23] MEDS: Fosaprepitant Dimeglumine 150 MG in 0.9 % Sodium Chloride 145 ML 300 MG IV (10:24)
[2023-04-23] MEDS: Atropine Sulfate 1 MG/ML VIAL 0.5 MG SUBCUT (11:44)
[2023-04-23] MEDS: SODIUM CHLORIDE 0.9% IV ×2 (11:50→16:15)
[2023-04-23] MEDS: BEVACIZUMAB IV (11:50)
[2023-04-23] MEDS: DEXTROSE 5% IV ×2 (14:39→14:40)
[2023-04-23] MEDS: LEUCOVORIN CALCIUM IV (14:39)
[2023-04-23] MEDS: IRINOTECAN HCL IV (14:40)
[2023-04-23] MEDS: FLUOROURACIL 138 MG IVPUSH (16:13)
[2023-04-23] MEDS: FLUOROURACIL IV (16:15)
--- NOTE | 2023-04-23 16:42 | MHC.HEMONC ---
C17: AVASTIN+ FOLFIRI. Labs obtained in main lab along with urine. Reviewed- UA unremarkable. Patient reports feeling well today. VSS. Port to right chest wall -accessed without difficulty- positive blood return. Biopatch in place. Pre-medicated with Tylenol 650mg PO, Benadryl 25mg PO, Dexamethasone 12mg IV, Zofran 16mg IV, Emend 150mg IV and Atropine 0.5mg s/c to right upper arm. Chemo infused without incident. 5FU bolus and pump administered and in place. Patient to return Sunday for pump take down. Tatum Schroeder per Dr. Mckee. Discharge packet provided .
[2023-04-25 14:18] VITALS: BP 101/59; PULSE 64; RESP 18; TEMP 36.6; O2SAT 95
[2023-04-25] MEDS: Heparin Sodium,Porcine Flush 500 UNIT/5 ML SYRINGE IVFLUSH (14:19)
--- NOTE | 2023-04-25 14:29 | MHC.HEMONC ---
Pt here for pump take down. Pt offers no complaints. Pump verified at Zero and disconnected. Port flushed with saline and heparin and de accessed. Declined calendar. Pt amb out of onc with steady gait. No neulasta until further notice per Dr Mckee.
[2023-05-07 08:39] VITALS: BP 129/57; PULSE 78; RESP 16; TEMP 37.4; O2SAT 94; BMI 20.8
[2023-05-07 08:50] LABS: MANUAL DIFF FLAG NO
[2023-05-07 08:56] LABS: Basophils Percent Auto 0.3 % (0-2); Eosinophils Absolute Auto 0.1 X10*3/uL (0.0-0.4); Eosinophils Percent Auto 2.1 % (0-4); Hematocrit 35.9 % (42.0-52.0); Hemoglobin 11.7 g/dl (14.0-18.0); Imm Gran Abs Auto 0.01 X10*3/uL (0.00-0.03); Imm Gran Pct Auto 0.3 % (0.0-0.4); Lymphocytes Absolute Auto 0.5 X10*3/uL (1.2-4.9); Mean Corpuscular HGB Conc 32.6 g/dl (31.0-36.0); Mean Corpuscular Hemoglobin 30.5 pg (27.0-33.0); Mean Corpuscular Volume 93.7 fL (80.0-98.0); Monocytes Absolute Auto 0.2 X10*3/uL (0.1-1.2); Monocytes Percent Auto 6.7 % (2-11); Neutrophils Absolute Auto 2.6 x10*3/uL (2.0-8.3); Neutrophils Percent Auto 75.6 % (45-73); Red Blood Count 3.83 X10*6/uL (4.60-5.80); Red Cell Distribution Width 16.8 % (11.0-16.0); White Blood Count 3.4 X10*3/uL (4.8-10.8)
[2023-05-07 09:00] LABS: Appearance Urine Clear; Color Urine Yellow; Glucose Urine UA Negative (Negative); Leukocyte Esterase Urine Negative (Negative); Nitrite Urine Negative (Negative); Specific Gravity - Urine 1.015 (1.005-1.025); Urine Blood Negative (Negative); Urine Ketones Negative (Negative); Urine Protein Negative (Neg-Trace)
[2023-05-07 09:04] LABS: Platelet Count 75 X10*3/uL (160-400)
[2023-05-07 09:11] LABS: Alanine Aminotransferase 32 U/L (0-40); Albumin Level 3.4 g/dL (3.5-5.0); Alkaline Phosphatase 110 U/L (39-117); Anion Gap 15 (12-20); Aspartate Amino Transferase 51 U/L (5-37); Bilirubin Total 1.5 mg/dL (0.0-1.0); Blood Urea Nitrogen 8 mg/dL (9-16); Calcium 8.7 mg/dL (8.4-10.2); Carbon Dioxide 20 mmol/L (22-29); Chloride 103 mmol/L (96-108); Creatinine Clr Calc Pharmacy 100.6; Estimated Glomerular Filt Rate > 60; Glucose Random 108 mg/dL (60-115); Potassium 3.9 mmol/L (3.3-5.1); Sodium 134 mmol/L (135-145); Total Protein 6.3 g/dL (6.5-8.0)
--- NOTE | 2023-05-07 09:27 | PM.HEMONCPN ---
Medical Summary - Medical Summary Date of Service: 05/07/23 Chief complaint: Follow-up and scheduled treatment Primary Care Provider: Jono Headley MD Medical Summary: Metastatic colon cancer diagnosed in October 2018. Presented with abdominal pain, 30 pound weight loss and severe pain. He had abnormal colonoscopy in 2009. He was told he needed a repeat colonoscopy in 5 years but he did not go for testing. CT abdomen/pelvis with IV contrast shows multiple areas of wall thickening in the sigmoid colon as well as thickening and enhancement of cecum, terminal ileum. Long segment of wall thickening of the distal transverse colon and left colon. Enlarged mesenteric and retroperitoneal lymph nodes, multiple liver metastasis and lung metastasis, all of these worrisome for metastatic colorectal malignancy. 11/01/18-Core biopsy of the right liver mass, moderately differentiated adenocarcinoma consistent with colorectal primary. KRAS mutation not detected BRAF mutation not detected. NRAS negative, MSI proficient or MSI stable. He developed bowel obstruction, palliative bypass ileostomy has been performed in November 2018. He started on mFOLFOX/Avastin regimen from 11/27/2018. His last treatment cycle 13 was on 05/14/2019. 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 Repeat CT abdomen/pelvis on 09/18/2019 showed further decrease in size of liver metastasis. He was on maintenance Xeloda 1500 mg p.o. b.i.d. 2 weeks on/1 week off, along with bevacizumab Q 3 weeks starting 10/22/2019 until 12/13/2020. Rising CEA as well as imaging in November 2020 showed evidence of progressive disease. He started irinotecan with bevacizumab from December 2020. Interval History Interval history: Patient is here in follow-up and scheduled treatment. He is doing fairly well. Apart from chronic fatigue he has no new complaints today. He has had dental work done and has no issues at this time. He denies nausea or emesis. No significant diarrhea and denies abdominal discomfort. No fever or chills. He had mouth sores briefly, that resolved now. He wants to know results of his scans. Review of Systems - Constitutional Reports as per HPI, Denies lack of energy, Denies malaise, Denies night sweats, Denies weight loss - Cardiovascular Reports no additional cardiovascular complaints - Respiratory Reports no additional respiratory complaints - Gastrointestinal Reports no additional gastrointestinal complaints [facility] Medical History: Medical History (Last Updated 08/28/22 @ 09:09 by Sheree Mckee MD) Chronic respiratory failure Colon cancer metastasized to liver Colon cancer metastasized to liver ILD (interstitial lung disease) Pulmonary fibrosis Pulmonary nodule Tubular adenoma Family History: Family History (Last Reviewed 08/04/22 @ 20:56 by SANDRO Rob) Son Cystic fibrosis Brother Esophageal cancer Maternal Aunt Lung cancer Surgical History: Surgical History (Last Reviewed 08/04/22 @ 20:56 by SANDRO Rob) H/O knee surgery Social History: Social History (Last Reviewed 08/04/22 @ 20:56 by SANDRO Rob) Living Situation History: Household Members: Spouse Household Members: Children Substance Use History: Use of substances other than those prescribed or required for medical reasons: No Advance Directives: Advance Directives: Yes Advance Directives Information Provided: No Advance Directives on File: Yes Advance Directives Date on File: 10/25/21 Nutrition Assessment: Recently lost weight without trying: No Occupation Assessmet: service: No Current occupational status: employed Current occupation: [employer] Medications and Allergies Current Medications: Current Medications Acetaminophen (Acetaminophen 325 Mg Tablet) 650 mg PO ONCE PINEDA Stop: 05/07/23 23:59 Atropine Sulfate (Atropine Sulfate 1 Mg/Ml Vial) 0.5 mg SUBCUT ONCE PINEDA Stop: 05/07/23 23:59 Diphenhydramine HCl (Diphenhydramine Hcl 25 Mg Capsule) 25 mg PO ONCE PINEDA Stop: 05/07/23 23:59 Dexamethasone Sodium Phosphate (Decadron) 12 mg in 50 mls @ 200 mls/hr IV ONCE PINEDA Stop: 05/07/23 23:59 Ondansetron HCl (Zofran) 16 mg in 50 mls @ 200 mls/hr IV ONCE PINEDA Stop: 05/07/23 23:59 Fosaprepitant 150 mg/ Sodium (Chloride) 150 mls @ 300 mls/hr IV ONCE PINEDA Stop: 05/07/23 23:59 Home Medications Medication Instructions Recorded Confirmed Type loperamide 2 mg capsule 2 mg PO BID PRN Diarrhea 05/19/20 04/23/23 History acetaminophen 650 mg 650 mg PO Q6H PRN Pain 08/04/22 04/23/23 History tablet,extended release omeprazole 40 mg capsule,delayed 40 mg PO DAILY@0630 08/04/22 04/23/23 History release Allergies Allergy/AdvReac Type Severity Reaction Status Date / Time prednisone [PREDNISONE] AdvReac Intermediate Psychosis Verified 03/05/23 08:51 Exam Vital signs: Vital Signs Temp 99.3 F 05/07/23 08:39 Pulse 78 05/07/23 08:39 Resp 16 05/07/23 08:39 BP 129/57 L 05/07/23 08:39 Pulse Ox 94 05/07/23 08:39 O2 Del Method Room Air 05/07/23 08:39 Intake & Output 05/06/23 05/07/23 05/07/23 18:59 06:59 18:59 Other: Weight 67.7 kg [place] Weight in Grams [id number] Weight 67.7 kg BMI result Body Mass Index 20.8 - Constitutional Present: no acute distress - Routine HEENT Exam Head: Present: normal inspection - Routine Neck Exam Present: full ROM. Absent: lymphadenopathy - Routine Respiratory Exam Present: CTAB - Routine Cardiovascular Exam Cardiovascular: Present: RRR, S1, S2 - Routine Abdominal Exam Present: normal bowel sounds, soft. Absent: mass, organomegaly - Routine Extremities Exam Present: full ROM. Absent: calf tenderness, pedal edema - Routine Skin Exam Present: intact. Absent: cyanosis, erythema - Routine Neurological Exam Present: alert, oriented X3 Data - Labs CBC & Chem 7: 05/07/23 08:30 05/07/23 08:30 Assessment and Plan Patient Active problem list reviewed?: Yes (1) Colon cancer metastasized to liver Status: Inactive Assessment and plan: 1. This is a 62-year-old gentleman, with metastatic colon carcinoma, with liver and lung metastases. Biopsy of the liver lesion, Moderately differentiated adenocarcinoma. KRAS and BRAF negative. NRAS negative, MSI proficient or MSI stable. HER2 and panTRK negative. Initial CEA elevated at 91. He developed bowel obstruction, palliative bypass ileostomy has been performed in November 2018. He started on mFOLFOX/Avastin regimen from 11/27/2018. His last treatment cycle 13 was on 05/14/2019. He was on maintenance Xeloda 1500 mg p.o. b.i.d. 2 weeks on/1 week off, along with bevacizumab Q 3 weeks starting 10/22/2019 until 12/13/2020. Rising CEA as well as imaging in November 2020 showed evidence of progressive disease. He started irinotecan with bevacizumab from December 2020 until 07/2022. CT chest/ abdomen and pelvis in July 2022 showed progression in lung nodules. CEA penelope to 18.8 NG/mL. Treatment was changed to FOLFIRI Avastin. 2. 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 He has been tapered off prednisone and CellCept. He is also off the oxygen. 3. Chronic arthralgias. He is on MSContin 30 mg b.i.d. He is on oxycodone 5 mg for breakthrough pain 2 to 3 times a day. He has right-sided low back pain, probably muscular. 4. Intermittent elevation of bilirubin, indirect bilirubinemia, probable Gilbert's syndrome. 5. Diarrhea related to chemotherapy. He was advised to increase frequency of Imodium to after every bowel movement. He was advised that it was safe to take 4-6 Imodium's a day. Because of neutropenia, he has been receiving Neulasta with treatments more frequently now. Repeat CT chest/abdomen pelvis with IV contrast shows mild progression and bilateral lung nodules as well as a solitary liver lesion that has grown slightly in size. For now continue same treatment, he CEA levels are stable and he is tolerating treatment well. Follow-up in 6 weeks. - Time Spent With Patient Time Spent with Patient (in minutes): 15
[2023-05-07] MEDS: Acetaminophen 325 MG TABLET 650 MG PO (09:59)
[2023-05-07] MEDS: diphenhydrAMINE HCL 25 MG CAPSULE PO (10:00)
[2023-05-07] MEDS: Fosaprepitant Dimeglumine 150 MG in 0.9 % Sodium Chloride 145 ML 300 MG IV (10:00)
[2023-05-07] MEDS: dexAMETHasone sod phosphate/NS 12 MG/50 ML PIGGYBACK 200 MG IV (10:00)
[2023-05-07] MEDS: BEVACIZUMAB IV (11:23)
[2023-05-07] MEDS: SODIUM CHLORIDE 0.9% IV ×2 (11:23→14:02)
[2023-05-07] MEDS: Atropine Sulfate 1 MG/ML VIAL 0.5 MG SUBCUT (11:29)
[2023-05-07] MEDS: DEXTROSE 5% IV ×2 (12:11→12:21)
[2023-05-07] MEDS: IRINOTECAN HCL IV (12:11)
[2023-05-07] MEDS: LEUCOVORIN CALCIUM IV (12:21)
[2023-05-07] MEDS: FLUOROURACIL 138 MG IVPUSH (14:01)
[2023-05-07] MEDS: FLUOROURACIL IV (14:02)
--- NOTE | 2023-05-07 15:58 | MHC.HEMONC ---
C19: AVASTIN+ FOLFIRI. Port accessed without difficulty with positive blood return. Labs obtained and reviewed- UA unremarkable. Patient states he is feeling well overall- did have Covid booster yesterday. Patient reported slight nausea with chills due to vaccine. Port to right chest wall -accessed without difficulty- positive blood return. Biopatch in place. Pre-medicated with Tylenol 650mg PO, Benadryl 25mg PO, Dexamethasone 12mg IV, Zofran 16mg IV, Emend 150mg IV and Atropine 0.5mg s/c to right upper arm. Chemo infused without incident. 5FU bolus and pump administered and in place. Patient to return Sunday for pump take down. No Neulasta per Dr. Mckee. Discharge packet provided. Follow up with Dr. Mckee today.
[2023-05-09] MEDS: Heparin Sodium,Porcine Flush 500 UNIT/5 ML SYRINGE IVFLUSH (12:38)
[2023-05-23 08:13] VITALS: BP 109/59; PULSE 77; RESP 18; TEMP 36.7; O2SAT 94; BMI 20.4
--- NOTE | 2023-05-23 15:26 | MHC.HEMONC ---
C20: AVASTIN+ FOLFIRI. Port accessed without difficulty with positive blood return. Labs obtained and reviewed WBC 2.7- ANC 1.2 ok to treat today per Dr. Mckee. UA unremarkable. Patient states he is feeling well did report some diarrhea, manages well with Imodium. Port to right chest wall -accessed without difficulty- positive blood return. Biopatch in place. Pre-medicated with Tylenol 650mg PO, Benadryl 25mg PO, Dexamethasone 12mg IV, Zofran 16mg IV, Emend 150mg IV and Atropine 0.5mg s/c to right upper arm. Chemo infused without incident. 5FU bolus and pump administered and in place. Patient to return Sunday for pump take down. No Neulasta per Dr. Mckee. Discharge packet provided.
[2023-05-25] MEDS: Heparin Sodium,Porcine Flush 500 UNIT/5 ML SYRINGE IVFLUSH (12:20)
[2023-05-25 12:24] VITALS: BP 149/72; PULSE 86; RESP 18; TEMP 36.7; O2SAT 98; BMI 17.9
--- NOTE | 2023-05-25 12:25 | MHC.HEMONC ---
Pt here for chemo pump take down. Port flushed with heparin and de accessed. Pt aware of next appointment
[2023-06-06 08:18] VITALS: BP 139/63; PULSE 75; RESP 18; TEMP 36.4; O2SAT 95; BMI 20.5
[2023-06-06 09:11] LABS: Appearance Urine Clear; Color Urine Dark Yellow; Glucose Urine UA Negative (Negative); Leukocyte Esterase Urine Negative (Negative); Nitrite Urine Negative (Negative); PH 5.5 (5.0-9.0); Specific Gravity - Urine 1.025 (1.005-1.025); Urine Blood Negative (Negative); Urine Ketones Negative (Negative); Urine Protein Negative (Neg-Trace)
[2023-06-06 09:13] LABS: Basophils Percent Auto 0.5 % (0-2); Eosinophils Absolute Auto 0.1 X10*3/uL (0.0-0.4); Eosinophils Percent Auto 4.8 % (0-4); Hematocrit 34.5 % (42.0-52.0); Lymphocytes Absolute Auto 0.6 X10*3/uL (1.2-4.9); Lymphocytes Percent Auto 29.5 % (20-40); Mean Corpuscular HGB Conc 31.9 g/dl (31.0-36.0); Mean Corpuscular Hemoglobin 30.5 pg (27.0-33.0); Mean Corpuscular Volume 95.6 fL (80.0-98.0); Monocytes Absolute Auto 0.3 X10*3/uL (0.1-1.2); Monocytes Percent Auto 13.3 % (2-11); Neutrophils Absolute Auto 1.1 x10*3/uL (2.0-8.3); Neutrophils Percent Auto 51.9 % (45-73); Platelet Count 87 X10*3/uL (160-400); Red Blood Count 3.61 X10*6/uL (4.60-5.80); Red Cell Distribution Width 17.9 % (11.0-16.0); White Blood Count 2.1 X10*3/uL (4.8-10.8)
[2023-06-06 09:28] LABS: Alanine Aminotransferase 27 U/L (0-40); Albumin Level 3.1 g/dL (3.5-5.0); Alkaline Phosphatase 85 U/L (39-117); Anion Gap 11 (12-20); Aspartate Amino Transferase 37 U/L (5-37); Bilirubin Total 0.9 mg/dL (0.0-1.0); Blood Urea Nitrogen 12 mg/dL (9-16); Calcium 8.8 mg/dL (8.4-10.2); Carbon Dioxide 24 mmol/L (22-29); Chloride 108 mmol/L (96-108); Creatinine Clr Calc Pharmacy 103.5; Estimated Glomerular Filt Rate > 60; Glucose Random 138 mg/dL (60-115); Potassium 3.9 mmol/L (3.3-5.1); Sodium 139 mmol/L (135-145); Total Protein 5.6 g/dL (6.5-8.0)
[2023-06-06] MEDS: dexAMETHasone sod phosphate/NS 12 MG/50 ML PIGGYBACK 200 MG IV (10:08)
[2023-06-06] MEDS: Atropine Sulfate 1 MG/ML VIAL 0.5 MG SUBCUT (10:09)
[2023-06-06] MEDS: diphenhydrAMINE HCL 25 MG CAPSULE PO (10:09)
[2023-06-06] MEDS: Acetaminophen 325 MG TABLET 650 MG PO (10:09)
[2023-06-06] MEDS: Fosaprepitant Dimeglumine 150 MG in 0.9 % Sodium Chloride 145 ML 300 MG IV (10:45)
[2023-06-06] MEDS: SODIUM CHLORIDE 0.9% IV ×2 (11:31→14:09)
[2023-06-06] MEDS: BEVACIZUMAB IV (11:31)
[2023-06-06] MEDS: DEXTROSE 5% IV ×2 (12:10→12:11)
[2023-06-06] MEDS: IRINOTECAN HCL IV (12:10)
[2023-06-06] MEDS: LEUCOVORIN CALCIUM IV (12:11)
[2023-06-06] MEDS: FLUOROURACIL 138 MG IVPUSH (14:08)
[2023-06-06] MEDS: FLUOROURACIL IV (14:09)
[2023-06-08] MEDS: Heparin Sodium,Porcine Flush 500 UNIT/5 ML SYRINGE IVFLUSH (11:34)
--- NOTE | 2023-06-08 11:57 | MHC.HEMONC ---
Patient here for pump take down- confirmed reservoir volume zero. No complaints at this time. Port flushed with Heparin and de-accessed. Patient aware of next appt.
[2023-06-20 08:24] VITALS: BP 133/65; PULSE 80; RESP 18; TEMP 36.4; O2SAT 96; BMI 20.3
[2023-06-20 08:53] LABS: Basophils Percent Auto 0.4 % (0-2); Eosinophils Absolute Auto 0.1 X10*3/uL (0.0-0.4); Eosinophils Percent Auto 2.5 % (0-4); Hematocrit 36.3 % (42.0-52.0); Hemoglobin 11.7 g/dl (14.0-18.0); Lymphocytes Absolute Auto 0.6 X10*3/uL (1.2-4.9); Lymphocytes Percent Auto 24.6 % (20-40); Mean Corpuscular HGB Conc 32.2 g/dl (31.0-36.0); Mean Corpuscular Hemoglobin 30.5 pg (27.0-33.0); Mean Corpuscular Volume 94.5 fL (80.0-98.0); Mean Platelet Volume 11.3 fL (9.4-12.4); Monocytes Absolute Auto 0.4 X10*3/uL (0.1-1.2); Neutrophils Absolute Auto 1.4 x10*3/uL (2.0-8.3); Neutrophils Percent Auto 57.5 % (45-73); Platelet Count 135 X10*3/uL (160-400); Red Blood Count 3.84 X10*6/uL (4.60-5.80); Red Cell Distribution Width 18.6 % (11.0-16.0); SCAN SMEAR FLAG 1
[2023-06-20 08:54] LABS: Appearance Urine Clear; Color Urine Dark Yellow; Glucose Urine UA Negative (Negative); Leukocyte Esterase Urine Negative (Negative); Nitrite Urine Negative (Negative); PH 5.5 (5.0-9.0); Urine Blood Negative (Negative); Urine Ketones Negative (Negative); Urine Protein Negative (Neg-Trace); White Blood Count 2.4 X10*3/uL (4.8-10.8)
[2023-06-20 08:55] LABS: MANUAL DIFF FLAG NO
[2023-06-20 09:11] LABS: Alanine Aminotransferase 24 U/L (0-40); Albumin Level 3.1 g/dL (3.5-5.0); Alkaline Phosphatase 83 U/L (39-117); Anion Gap 9 (12-20); Aspartate Amino Transferase 40 U/L (5-37); Bilirubin Total 0.8 mg/dL (0.0-1.0); Blood Urea Nitrogen 8 mg/dL (9-16); Calcium 8.6 mg/dL (8.4-10.2); Carbon Dioxide 24 mmol/L (22-29); Chloride 110 mmol/L (96-108); Creatinine Clr Calc Pharmacy 91.8; Estimated Glomerular Filt Rate > 60; Glucose Random 134 mg/dL (60-115); Potassium 3.9 mmol/L (3.3-5.1); Sodium 139 mmol/L (135-145); Total Protein 5.7 g/dL (6.5-8.0)
[2023-06-20] MEDS: Fosaprepitant Dimeglumine 150 MG in 0.9 % Sodium Chloride 145 ML 300 MG IV (09:51)
[2023-06-20] MEDS: Acetaminophen 325 MG TABLET 650 MG PO (09:51)
[2023-06-20] MEDS: dexAMETHasone sod phosphate/NS 12 MG/50 ML PIGGYBACK 200 MG IV (09:51)
[2023-06-20] MEDS: diphenhydrAMINE HCL 25 MG CAPSULE PO (09:52)
[2023-06-20] MEDS: Atropine Sulfate 1 MG/ML VIAL 0.5 MG SUBCUT (09:52)
[2023-06-20] MEDS: BEVACIZUMAB IV (11:16)
[2023-06-20] MEDS: SODIUM CHLORIDE 0.9% IV ×2 (11:16→14:44)
[2023-06-20] MEDS: IRINOTECAN HCL IV (12:50)
[2023-06-20] MEDS: LEUCOVORIN CALCIUM IV (12:50)
[2023-06-20] MEDS: DEXTROSE 5% IV ×2 (12:50)
--- NOTE | 2023-06-20 13:32 | P.PNHO-ONC_ITS ---
Medical Summary - Medical Summary Date of Service: 06/20/23 Chief complaint: Follow-up Primary Care Provider: Jono Headley MD Medical Summary: Metastatic colon cancer diagnosed in October 2018. Presented with abdominal pain, 30 pound weight loss and severe pain. He had abnormal colonoscopy in 2009. He was told he needed a repeat colonoscopy in 5 years but he did not go for testing. CT abdomen/pelvis with IV contrast shows multiple areas of wall thickening in the sigmoid colon as well as thickening and enhancement of cecum, terminal ileum. Long segment of wall thickening of the distal transverse colon and left colon. Enlarged mesenteric and retroperitoneal lymph nodes, multiple liver metastasis and lung metastasis, all of these worrisome for metastatic colorectal malignancy. 11/01/18-Core biopsy of the right liver mass, moderately differentiated adenocarcinoma consistent with colorectal primary. KRAS mutation not detected BRAF mutation not detected. NRAS negative, MSI proficient or MSI stable. He developed bowel obstruction, palliative bypass ileostomy has been performed in November 2018. He started on mFOLFOX/Avastin regimen from 11/27/2018. His last treatment cycle 13 was on 05/14/2019. 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 Repeat CT abdomen/pelvis on 09/18/2019 showed further decrease in size of liver metastasis. He was on maintenance Xeloda 1500 mg p.o. b.i.d. 2 weeks on/1 week off, along with bevacizumab Q 3 weeks starting 10/22/2019 until 12/13/2020. Rising CEA as well as imaging in November 2020 showed evidence of progressive disease. He started irinotecan with bevacizumab from December 2020. Interval History Interval history: Patient is here in follow-up and scheduled treatment. He feels a bit beat up. He thinks he had the flu last week. He denies nausea or emesis. No significant diarrhea and denies abdominal discomfort. No fever or chills. Review of Systems - Constitutional Reports as per HPI, Reports fatigue, Reports lack of energy, Reports malaise, Denies night sweats, Reports weight loss - Cardiovascular Reports no additional cardiovascular complaints - Respiratory Reports no additional respiratory complaints - Gastrointestinal Reports no additional gastrointestinal complaints [facility] Medical History: Medical History (Last Updated 08/28/22 @ 09:09 by Sheree Mckee MD) Chronic respiratory failure Colon cancer metastasized to liver Colon cancer metastasized to liver ILD (interstitial lung disease) Pulmonary fibrosis Pulmonary nodule Tubular adenoma Family History: Family History (Last Reviewed 08/04/22 @ 20:56 by SANDRO Rob) Son Cystic fibrosis Brother Esophageal cancer Maternal Aunt Lung cancer Surgical History: Surgical History (Last Reviewed 08/04/22 @ 20:56 by SANDRO Rob) H/O knee surgery Social History: Social History (Last Reviewed 08/04/22 @ 20:56 by SANDRO Rob) Living Situation History: Household Members: Spouse Household Members: Children Substance Use History: Use of substances other than those prescribed or required for medical reasons : No Advance Directives: Advance Directives: Yes Advance Directives Information Provided: No Advance Directives on File: Yes Advance Directives Date on File: 10/25/21 Nutrition Assessment: Recently lost weight without trying: No Occupation Assessmet: service: No Current occupational status: employed Current occupation: [employer] Medications and Allergies Current Medications: Current Medications Acetaminophen (Acetaminophen 325 Mg Tablet) 650 mg PO ONCE PINEDA Stop: 06/20/23 23:59 Last Admin: 06/20/23 09:51 Dose: 650 mg Atropine Sulfate (Atropine Sulfate 1 Mg/Ml Vial) 0.5 mg SUBCUT ONCE PINEDA Stop: 06/20/23 23:59 Last Admin: 06/20/23 09:52 Dose: 0.5 mg Diphenhydramine HCl (Diphenhydramine Hcl 25 Mg Capsule) 25 mg PO ONCE PINEDA Stop: 06/20/23 23:59 Last Admin: 06/20/23 09:52 Dose: 25 mg Dexamethasone Sodium Phosphate (Decadron) 12 mg in 50 mls @ 200 mls/hr IV ONCE PINEDA Stop: 06/20/23 23:59 Last Admin: 06/20/23 09:51 Dose: 200 mls/hr Ondansetron HCl (Zofran) 16 mg in 50 mls @ 200 mls/hr IV ONCE PINEDA Stop: 06/20/23 23:59 Last Admin: 06/20/23 09:51 Dose: 200 mls/hr Fosaprepitant 150 mg/ Sodium (Chloride) 150 mls @ 300 mls/hr IV ONCE PINEDA Stop: 06/20/23 23:59 Last Admin: 06/20/23 09:51 Dose: 300 mls/hr Bevacizumab 340 mg/ Sodium (Chloride) 100 mls @ 200 mls/hr IV ONCE PINEDA Stop: 06/20/23 23:59 Last Admin: 06/20/23 11:16 Dose: 200 mls/hr Fluorouracil 3,400 mg/ Sodium (Chloride) 92 mls @ 2 mls/hr IV ONCE PINEDA Stop: 06/20/23 23:59 Fluorouracil 575 mg/ IV (Miscellaneous Supplies) 11.5 mls @ 138 mls/hr IVPUSH ONCE PINEDA Stop: 06/20/23 23:59 Irinotecan HCl 260 mg/ (Dextrose) 513 mls @ 342 mls/hr IV ONCE PINEDA Stop: 06/20/23 23:59 Last Admin: 06/20/23 12:50 Dose: 342 mls/hr Leucovorin Calcium 570 mg/ (Dextrose) 278.5 mls @ 185.667 mls/hr IV ONCE PINEDA Stop: 06/20/23 23:59 Last Admin: 06/20/23 12:50 Dose: 185.67 mls/hr Home Medications Medication Instructions Recorded Confirmed Type loperamide 2 mg capsule 2 mg PO BID PRN Diarrhea 05/19/20 04/23/23 History acetaminophen 650 mg 650 mg PO Q6H PRN Pain 08/04/22 04/23/23 History tablet,extended release omeprazole 40 mg capsule,delayed 40 mg PO DAILY@0630 08/04/22 04/23/23 History release Allergies Allergy/AdvReac Type Severity Reaction Status Date / Time prednisone [PREDNISONE] AdvReac Intermediate Psychosis Verified 03/05/23 08:51 Exam Vital signs: Vital Signs Temp 97.6 F 06/20/23 08:24 Pulse 80 06/20/23 08:24 Resp 18 06/20/23 08:24 BP 133/65 06/20/23 08:24 Pulse Ox 96 06/20/23 08:24 O2 Del Method Room Air 06/20/23 08:24 Intake & Output 06/19/23 06/20/23 06/20/23 18:59 06:59 18:59 Other: Weight 66.1 kg [place] Weight in Grams 06751 Weight 66.1 kg BMI result Body Mass Index 20.3 - Constitutional Present: no acute distress - Routine HEENT Exam Head: Present: normal inspection - Routine Neck Exam Present: full ROM. Absent: lymphadenopathy - Routine Respiratory Exam Present: CTAB - Routine Cardiovascular Exam Cardiovascular: Present: RRR, S1, S2 - Routine Abdominal Exam Present: normal bowel sounds, soft. Absent: mass, organomegaly - Routine Extremities Exam Present: full ROM. Absent: calf tenderness, pedal edema - Routine Skin Exam Present: intact. Absent: cyanosis, erythema - Routine Neurological Exam Present: alert, oriented X3 Data - Labs CBC & Chem 7: 06/20/23 08:45 06/20/23 08:45 Assessment and Plan Patient Active problem list reviewed?: Yes (1) Colon cancer metastasized to liver Status: Inactive Assessment and plan: 1. This is a 63-year-old gentleman, with metastatic colon carcinoma, with liver and lung metastases. Biopsy of the liver lesion, Moderately differentiated adenocarcinoma. KRAS and BRAF negative. NRAS negative, MSI proficient or MSI stable. HER2 and panTRK negative. Initial CEA elevated at 91. He developed bowel obstruction, palliative bypass ileostomy has been performed in November 2018. He started on mFOLFOX/Avastin regimen from 11/27/2018. His last treatment cycle 13 was on 05/14/2019. He was on maintenance Xeloda 1500 mg p.o. b.i.d. 2 weeks on/1 week off, along with bevacizumab Q 3 weeks starting 10/22/2019 until 12/13/2020. Rising CEA as well as imaging in November 2020 showed evidence of progressive disease. He started irinotecan with bevacizumab from December 2020 until 07/2022. CT chest/ abdomen and pelvis in July 2022 showed progression in lung nodules. CEA penelope to 18.8 NG/mL. Treatment was changed to FOLFIRI Avastin. 2. 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 He has been tapered off prednisone and CellCept. He is also off the oxygen. 3. Chronic arthralgias. He is on MSContin 30 mg b.i.d. He is on oxycodone 5 mg for breakthrough pain 2 to 3 times a day. He has right-sided low back pain, probably muscular. 4. Intermittent elevation of bilirubin, indirect bilirubinemia, probable Gilbert's syndrome. 5. Diarrhea related to chemotherapy. He was advised to increase frequency of Imodium to after every bowel movement. He was advised that it was safe to take 4-6 Imodium's a day. Because of neutropenia, he has been receiving Neulasta with treatments more frequently now. Repeat CT chest/abdomen pelvis with IV contrast shows mild progression and bilateral lung nodules as well as a solitary liver lesion that has grown slightly in size. For now continue same treatment, he CEA levels are stable and he is tolerating treatment well. Repeat CT chest/abdomen and pelvis has been ordered. Follow-up in 6 weeks. - Time Spent With Patient Time Spent with Patient (in minutes): 15
[2023-06-20] MEDS: FLUOROURACIL IV (14:44)
[2023-06-20] MEDS: FLUOROURACIL 138 MG IVPUSH (14:44)
--- NOTE | 2023-06-20 15:41 | MHC.HEMONC ---
C21: AVASTIN+ FOLFIRI. Port accessed without difficulty with positive blood return. Labs obtained and reviewed. UA unremarkable. Patient states he is feeling well did report some diarrhea, manages well with Imodium. Port to right chest wall -accessed without difficulty- positive blood return. Biopatch in place. Pre-medicated with Tylenol 650mg PO, Benadryl 25mg PO, Dexamethasone 12mg IV, Zofran 16mg IV, Emend 150mg IV and Atropine 0.5mg s/c to left upper arm. Chemo infused without incident. 5FU bolus and pump administered and in place. Patient to return Sunday for pump take down. Patient declined discharge packet. Follow up with Dr. Mckee today- plan to repeat scans.
[2023-06-22] MEDS: Heparin Sodium,Porcine Flush 500 UNIT/5 ML SYRINGE IVFLUSH (11:55)
--- NOTE | 2023-06-22 13:56 | MHC.HEMONC ---
Patient here for pump take down- confirmed reservoir volume zero. No complaints at this time. Port flushed with Heparin and de-accessed. Patient aware of next appt.
[2023-07-09 08:08] VITALS: BP 119/56; PULSE 93; RESP 18; TEMP 37.6; O2SAT 93; BMI 20.4
[2023-07-09 08:24] LABS: SCAN SMEAR FLAG 1
[2023-07-09 08:26] LABS: Basophils Percent Auto 0.3 % (0-2); Eosinophils Percent Auto 1.4 % (0-4); Hematocrit 37.5 % (42.0-52.0); Lymphocytes Absolute Auto 0.7 X10*3/uL (1.2-4.9); Lymphocytes Percent Auto 23.9 % (20-40); Mean Corpuscular Hemoglobin 30.2 pg (27.0-33.0); Mean Corpuscular Volume 94.5 fL (80.0-98.0); Mean Platelet Volume 11.6 fL (9.4-12.4); Monocytes Absolute Auto 0.6 X10*3/uL (0.1-1.2); Monocytes Percent Auto 21.5 % (2-11); Neutrophils Absolute Auto 1.5 x10*3/uL (2.0-8.3); Neutrophils Percent Auto 52.9 % (45-73); Red Blood Count 3.97 X10*6/uL (4.60-5.80); Red Cell Distribution Width 18.6 % (11.0-16.0); White Blood Count 2.9 X10*3/uL (4.8-10.8)
[2023-07-09 08:27] LABS: Appearance Urine Clear; Color Urine Dark Yellow; Glucose Urine UA Negative (Negative); Leukocyte Esterase Urine Negative (Negative); Nitrite Urine Negative (Negative); PH 5.5 (5.0-9.0); Specific Gravity - Urine 1.025 (1.005-1.025); Urine Blood Negative (Negative); Urine Ketones Trace mg/dL (Negative); Urine Protein Trace mg/dL (Neg-Trace)
[2023-07-09 08:27] LABS: MANUAL DIFF FLAG NO; PLT ABN DIST 1; Platelet Count 79 X10*3/uL (160-400)
[2023-07-09 08:41] LABS: Alanine Aminotransferase 22 U/L (0-40); Albumin Level 3.4 g/dL (3.5-5.0); Alkaline Phosphatase 90 U/L (39-117); Anion Gap 11 (12-20); Aspartate Amino Transferase 42 U/L (5-37); Bilirubin Total 1.4 mg/dL (0.0-1.0); Blood Urea Nitrogen 10 mg/dL (9-16); Calcium 8.7 mg/dL (8.4-10.2); Carbon Dioxide 24 mmol/L (22-29); Chloride 100 mmol/L (96-108); Creatinine Clr Calc Pharmacy 75.1; Estimated Glomerular Filt Rate > 60; Glucose Random 111 mg/dL (60-115); Sodium 131 mmol/L (135-145)
[2023-07-09 09:04] LABS: Influenza A PCR NEGATIVE (Negative); Influenza B PCR NEGATIVE (Negative); Resp Syncy Virus RNA Qual PCR NEGATIVE (Negative); SARS COV2 PCR INHOUSE NEGATIVE (Negative)
[2023-07-09] MEDS: Atropine Sulfate 1 MG/ML VIAL 0.5 MG SUBCUT (09:46)
[2023-07-09] MEDS: dexAMETHasone sod phosphate/NS 12 MG/50 ML PIGGYBACK 200 MG IV (09:46)
[2023-07-09] MEDS: Acetaminophen 325 MG TABLET 650 MG PO (09:47)
[2023-07-09] MEDS: diphenhydrAMINE HCL 25 MG CAPSULE PO (09:47)
[2023-07-09] MEDS: Fosaprepitant Dimeglumine 150 MG in 0.9 % Sodium Chloride 145 ML 300 MG IV (10:09)
[2023-07-09] MEDS: BEVACIZUMAB IV (11:06)
[2023-07-09] MEDS: SODIUM CHLORIDE 0.9% IV ×2 (11:06→13:29)
[2023-07-09] MEDS: DEXTROSE 5% IV ×2 (11:50→11:51)
[2023-07-09] MEDS: IRINOTECAN HCL IV (11:50)
[2023-07-09] MEDS: LEUCOVORIN CALCIUM IV (11:51)
--- NOTE | 2023-07-09 13:00 | MHC.HEMONC ---
Pt here for C22D1 Avastin/Folfiri. Pt states he does not feel well today. States he feel achey all over, low grade temp 99.7, slight nausea, states coughing up clear mucous. Dr Mckee notified. Sars/Flu/covid swab obtained-sent to lab. Port accessed with blood return noted-labs drawn from port specimen to lab. Urine specimen obtained-sent to lab. Lab results reviewed, Covid swab negative, pt states he feels a bit better and wants to receive treatment today-Dr Mckee notified. Pre medeciated with tylenol, dexamethasone, benadryl, zofran, emend, atropine sulfate SC right arm. Avastin/Folfiri given as ordered-tolerated well. Home chemo pump attached as ordered. Discharge packet given with next appointment scheduled. Pt to return on 07/11/23 for chemo pump take down. Declines wheelchair for discharge
[2023-07-09] MEDS: FLUOROURACIL 138 MG IVPUSH (13:28)
[2023-07-09] MEDS: FLUOROURACIL IV (13:29)
[2023-07-11] MEDS: Heparin Sodium,Porcine Flush 500 UNIT/5 ML SYRINGE IVFLUSH (11:26)
--- NOTE | 2023-07-11 11:33 | MHC.HEMONC ---
Here for pump take down. States tolerated treatment well, and also is starting to feel better from his head cold. Port flushed with heparin 500units and de-accessed. Aware of next appointment. Departed unit.
[2023-07-23 08:13] VITALS: BP 122/72; PULSE 112; RESP 18; TEMP 36.3; O2SAT 92; BMI 18.5
[2023-07-23 08:40] LABS: Hematocrit 40.5 % (42.0-52.0); Hemoglobin 13.1 g/dl (14.0-18.0); Mean Corpuscular HGB Conc 32.3 g/dl (31.0-36.0); Mean Corpuscular Hemoglobin 29.6 pg (27.0-33.0); Mean Corpuscular Volume 91.4 fL (80.0-98.0); Mean Platelet Volume 12.3 fL (9.4-12.4); Platelet Count 215 X10*3/uL (160-400); Red Blood Count 4.43 X10*6/uL (4.60-5.80); Red Cell Distribution Width 16.9 % (11.0-16.0)
[2023-07-23 09:00] LABS: Alanine Aminotransferase 18 U/L (0-40); Albumin Level 2.8 g/dL (3.5-5.0); Alkaline Phosphatase 137 U/L (39-117); Anion Gap 16 (12-20); Aspartate Amino Transferase 36 U/L (5-37); Blood Urea Nitrogen 15 mg/dL (9-16); Calcium 8.8 mg/dL (8.4-10.2); Carbon Dioxide 16 mmol/L (22-29); Chloride 101 mmol/L (96-108); Creatinine Clr Calc Pharmacy 67.4; Estimated Glomerular Filt Rate > 60; Glucose Random 181 mg/dL (60-115); Potassium 4.3 mmol/L (3.3-5.1); Sodium 129 mmol/L (135-145); Total Protein 7.2 g/dL (6.5-8.0)
[2023-07-23] MEDS: 0.9 % Sodium Chloride 1,000 ML 999 ML IV (09:00)
[2023-07-23 09:07] LABS: Band Neutrophils Percent 7 % (3-5); Basophils Abs Manual 0.1 X10*3/uL (0.0-0.2); Basophils Percent Manual 1 % (0-2); Eosinophils Absolute Manual 0.1 X10*3/uL (0.0-0.4); Eosinophils Percent Manual 1 % (0-4); Lymphocytes Absolute Manual 0.5 X10*3/uL (1.2-4.9); Lymphocytes Percent Manual 5 % (20-40); Metamyelocytes Absolute 0.2 X10*3/uL; Metamyelocytes Percent 2 %; Monocytes Absolute Manual 0.9 X10*3/uL (0.1-1.2); Monocytes Percent Manual 10 % (2-11); Neutrophils Absolute Manual 7.3 X10*3/uL (2.0-8.3); Neutrophils Percent Manual 74 % (45-73)
[2023-07-23 09:09] LABS: Ovalocytes 1+ (5-14) /OIF; Platelet Estimate NORMAL (NORMAL); Platelet Morphology Comment NORMAL; RBC Morphology NOTED; Schistocytes 1+ (0-2) /OIF
--- NOTE | 2023-07-23 10:15 | MHC.HEMONC ---
Addendum entered by Rosalie Baires RN 07/23/23 13:21: Pt states his hair hurts Has a backache and headache, nausea with dry heaves, congested non productive cough. Original Note: Pt here for C23D1 Avastin/Folfiri. Pt states he has been sick with upper respiratory symptoms. States has fever intermittently with night sweats. Afebrile today. Pt states he was in ED 2 weeks ago and tested positive for RSV. Declines chemotherapy today. Dr Mckee notified-plan for Dr Mckee to order z-pack for pt and IV hydration-pt notified. Pt requesting refill of oxycodone 5 mg-Dr Mckee notified. Port accessed with blood return noted. Labs drawn from port-specimen to lab. 1000 ml 0.9% NS infused-port flushed with heparin and de-accessed. Next Chemo therapy appointment scheduled for day after per pt request. Discharge packet given with next appointment scheduled. Instructed to call department if he continues to feel poorly after antibiotic treatment-verbalizes understanding of information given
--- NOTE | 2023-07-25 13:57 | MHC.HEMONC ---
pt's came to report insurance has been dropped and will be changing Ct scan for tomorrow has been cancelled and central scheduling will call him to reschedule when new insurance instated
[2023-07-31] MEDS: 0.9 % Sodium Chloride 1,000 ML 500 ML IV (09:15)
[2023-07-31 09:24] VITALS: BP 135/90; PULSE 96; RESP 18; TEMP 36.3; O2SAT 93
[2023-07-31 09:29] LABS: MANUAL DIFF FLAG NO
--- NOTE | 2023-07-31 09:30 | MHC.HEMONC ---
Pt here for IV hydration and lab draw. Vital signs as noted. Port accessed with blood return noted. Labs drawn from port-specimen to lab. 1000 ml 0.9% NS infusing as ordered. 5 mg oxycodone given for 8/10 left sided pain with some relief per pt. Congested productive cough noted with green brown mucous noted. Rales noted LLL-reported to Dr Mckee. Lab results reviewed by Dr Mckee and into see pt. Plan for pt to be transferred to ED-pt notified. Transferred to ED via stretcher.
[2023-07-31 09:32] LABS: Basophils Absolute Auto 0.1 X10*3/uL (0.0-0.2); Basophils Percent Auto 0.4 % (0-2); Eosinophils Absolute Auto 0.1 X10*3/uL (0.0-0.4); Eosinophils Percent Auto 0.6 % (0-4); Hematocrit 35.9 % (42.0-52.0); Hemoglobin 11.6 g/dl (14.0-18.0); Imm Gran Abs Auto 0.17 X10*3/uL (0.00-0.03); Lymphocytes Absolute Auto 1.3 X10*3/uL (1.2-4.9); Lymphocytes Percent Auto 7.1 % (20-40); Mean Corpuscular HGB Conc 32.3 g/dl (31.0-36.0); Mean Corpuscular Hemoglobin 30.4 pg (27.0-33.0); Mean Platelet Volume 11.5 fL (9.4-12.4); Monocytes Absolute Auto 1.1 X10*3/uL (0.1-1.2); Monocytes Percent Auto 6.1 % (2-11); Neutrophils Percent Auto 84.8 % (45-73); Platelet Count 295 X10*3/uL (160-400); Red Blood Count 3.82 X10*6/uL (4.60-5.80); Red Cell Distribution Width 16.3 % (11.0-16.0); White Blood Count 17.7 X10*3/uL (4.8-10.8)
[2023-07-31] MEDS: oxyCODONE HCl Immed Release 5 MG TABLET PO (09:58)
[2023-07-31 10:03] LABS: Alanine Aminotransferase 13 U/L (0-40); Albumin Level 2.9 g/dL (3.5-5.0); Alkaline Phosphatase 113 U/L (39-117); Aspartate Amino Transferase 30 U/L (5-37); Bilirubin Total 0.8 mg/dL (0.0-1.0); Blood Urea Nitrogen 56 mg/dL (9-16); Calcium 9.5 mg/dL (8.4-10.2); Glucose Random 104 mg/dL (60-115); Magnesium 2.6 mg/dL (1.6-2.6)
[2023-07-31 10:22] LABS: Anion Gap 13 (12-20); Carbon Dioxide 12 mmol/L (22-29); Chloride 110 mmol/L (96-108); Creatinine Clr Calc Pharmacy 32.8; Estimated Glomerular Filt Rate 36; Potassium 7.1 mmol/L (3.3-5.1); Sodium 128 mmol/L (135-145)
--- NOTE | 2023-07-31 10:33 | PM.HEMONCPN ---
Medical Summary - Medical Summary Date of Service: 07/31/23 Chief complaint: Weakness and abdominal discomfort Primary Care Provider: Jono Headley MD Medical Summary: Metastatic colon cancer diagnosed in October 2018. Presented with abdominal pain, 30 pound weight loss and severe pain. He had abnormal colonoscopy in 2009. He was told he needed a repeat colonoscopy in 5 years but he did not go for testing. CT abdomen/pelvis with IV contrast shows multiple areas of wall thickening in the sigmoid colon as well as thickening and enhancement of cecum, terminal ileum. Long segment of wall thickening of the distal transverse colon and left colon. Enlarged mesenteric and retroperitoneal lymph nodes, multiple liver metastasis and lung metastasis, all of these worrisome for metastatic colorectal malignancy. 11/01/18-Core biopsy of the right liver mass, moderately differentiated adenocarcinoma consistent with colorectal primary. KRAS mutation not detected BRAF mutation not detected. NRAS negative, MSI proficient or MSI stable. He developed bowel obstruction, palliative bypass ileostomy has been performed in November 2018. He started on mFOLFOX/Avastin regimen from 11/27/2018. His last treatment cycle 13 was on 05/14/2019. 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 Repeat CT abdomen/pelvis on 09/18/2019 showed further decrease in size of liver metastasis. He was on maintenance Xeloda 1500 mg p.o. b.i.d. 2 weeks on/1 week off, along with bevacizumab Q 3 weeks starting 10/22/2019 until 12/13/2020. Rising CEA as well as imaging in November 2020 showed evidence of progressive disease. He started irinotecan with bevacizumab from December 2020. Interval History Interval history: Patient was seen urgently today because of complaints of progressive weakness and severe lower abdominal discomfort. He has been gradually getting weak and not feeling well at all. His called and patient was asked to come in. He denies any fever or chills but feels he is getting dehydrated. He does recall urinating this morning. He is having soft stools through the ostomy bag. He has some persistent cough since his recent RSV infection. He denies palpitation but he feels somewhat lightheaded. No chest pain. Review of Systems - Constitutional Reports as per HPI, Reports fatigue, Reports lack of energy, Reports malaise, Reports poor appetite, Reports weight loss PMFSH Medical History: Medical History (Last Updated 08/28/22 @ 09:09 by Sheree Mckee MD) Chronic respiratory failure Colon cancer metastasized to liver Colon cancer metastasized to liver ILD (interstitial lung disease) Pulmonary fibrosis Pulmonary nodule Tubular adenoma Family History: Family History (Last Reviewed 08/04/22 @ 20:56 by SANDRO Rob) Son Cystic fibrosis Brother Esophageal cancer Maternal Aunt Lung cancer Surgical History: Surgical History (Last Reviewed 08/04/22 @ 20:56 by SANDRO Rob) H/O knee surgery Social History: Social History (Last Reviewed 08/04/22 @ 20:56 by SANDRO Rob) Living Situation History: Household Members: Spouse Household Members: Children Substance Use History: Use of substances other than those prescribed or required for medical reasons: No Substance Use Type: Marijuana Advance Directives: Advance Directives: Yes Advance Directives Information Provided: No Advance Directives on File: Yes Advance Directives Date on File: 12/12/22 Nutrition Assessment: Recently lost weight without trying: No Occupation Assessmet: service: No Current occupational status: employed Current occupation: [employer] Home Medications and Allergies Home Medications Medication Instructions Recorded Confirmed Type loperamide 2 mg capsule 2 mg PO BID PRN Diarrhea 05/19/20 07/09/23 History acetaminophen 650 mg 650 mg PO Q6H PRN Pain 08/04/22 07/09/23 History tablet,extended release omeprazole 40 mg capsule,delayed 40 mg PO DAILY@0630 08/04/22 07/09/23 History release Allergies Allergy/AdvReac Type Severity Reaction Status Date / Time prednisone [PREDNISONE] AdvReac Intermediate Psychosis Verified 03/05/23 08:51 Exam Vital signs: Vital Signs Temp 97.3 F 07/31/23 09:24 Pulse 96 07/31/23 09:24 Resp 18 07/31/23 09:24 BP 135/90 H 07/31/23 09:24 Pulse Ox 93 07/31/23 09:24 O2 Del Method Room Air 07/31/23 09:24 Weight 60.2 kg BMI result Body Mass Index 18.5 - Constitutional Present: no acute distress - Routine HEENT Exam Head: Present: normal inspection - Routine Neck Exam Present: full ROM. Absent: lymphadenopathy - Routine Respiratory Exam Present: CTAB - Routine Cardiovascular Exam Cardiovascular: Present: RRR, S1, S2 - Routine Abdominal Exam Present: normal bowel sounds, soft. Absent: mass, organomegaly - Routine Extremities Exam Present: full ROM. Absent: calf tenderness, pedal edema - Routine Skin Exam Present: intact. Absent: cyanosis, erythema - Routine Neurological Exam Present: alert, oriented X3 Data - Labs CBC & Chem 7: 07/31/23 09:15 07/31/23 09:15 Assessment and Plan Patient Active problem list reviewed?: Yes (1) Colon cancer metastasized to liver Status: Inactive Assessment and plan: 1. This is a 63-year-old gentleman, with metastatic colon carcinoma, with liver and lung metastases. Biopsy of the liver lesion, Moderately differentiated adenocarcinoma. KRAS and BRAF negative. NRAS negative, MSI proficient or MSI stable. HER2 and panTRK negative. Initial CEA elevated at 91. He developed bowel obstruction, palliative bypass ileostomy has been performed in November 2018. He started on mFOLFOX/Avastin regimen from 11/27/2018. His last treatment cycle 13 was on 05/14/2019. He was on maintenance Xeloda 1500 mg p.o. b.i.d. 2 weeks on/1 week off, along with bevacizumab Q 3 weeks starting 10/22/2019 until 12/13/2020. Rising CEA as well as imaging in November 2020 showed evidence of progressive disease. He started irinotecan with bevacizumab from December 2020 until 07/2022. CT chest/ abdomen and pelvis in July 2022 showed progression in lung nodules. CEA penelope to 18.8 NG/mL. Treatment was changed to FOLFIRI Avastin. Repeat CT chest/abdomen pelvis with IV contrast shows mild progression and bilateral lung nodules as well as a solitary liver lesion that has grown slightly in size. 2. 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 He has been tapered off prednisone and CellCept. He is also off the oxygen. 3. Chronic arthralgias. He is on MSContin 30 mg b.i.d. He is on oxycodone 5 mg for breakthrough pain 2 to 3 times a day. He has right-sided low back pain, probably muscular. 4. Intermittent elevation of bilirubin, indirect bilirubinemia, probable Gilbert's syndrome. 5. Acute renal failure with hyperkalemia. Unclear etiology, could be progressive disease with obstructive uropathy. I discussed with ER provider to obtain stat CT abdomen/pelvis without contrast. He was started on IV fluids. [facility] for management of hyperkalemia, renal consult and admission. - Time Spent With Patient Time Spent with Patient (in minutes): 20
--- NOTE | 2023-07-31 10:49 | MHC.HEMONC ---
K+7.[address] Mckee. Pt to go to ED for hyperkalemia. Report called to Herminia CARRILLOmedical logistics specialist. Pt transported to ED via stretcher to ED17. Chery CARRILLO assigned to patient unavailable for nurse to nurse. SANDRO Herrera will update her.
--- NOTE | 2023-08-03 16:11 | HO.HEMONCSCH ---
Nurse cancelled pt's upcoming chemo and f/u appts on 08/07, as pt is inpatient at [facility], as well as all subsequent appts.
--- NOTE | 2023-08-07 09:31 | MHC.HEMONC ---
Triage call-received call from pt's who said pt is almost done with medications prescribed from hospital. States pt does not have a fever but continues with a cough. Will notify Dr Mckee and call back with plan
--- NOTE | 2023-08-08 14:36 | P.PNHO-ONC_ITS ---
Medical Summary - Medical Summary Date of Service: 08/08/23 Chief complaint: Follow-up Primary Care Provider: Jono Headley MD Medical Summary: Metastatic colon cancer diagnosed in October 2018. Presented with abdominal pain, 30 pound weight loss and severe pain. He had abnormal colonoscopy in 2009. He was told he needed a repeat colonoscopy in 5 years but he did not go for testing. CT abdomen/pelvis with IV contrast shows multiple areas of wall thickening in the sigmoid colon as well as thickening and enhancement of cecum, terminal ileum. Long segment of wall thickening of the distal transverse colon and left colon. Enlarged mesenteric and retroperitoneal lymph nodes, multiple liver metastasis and lung metastasis, all of these worrisome for metastatic colorectal malignancy. 11/01/18-Core biopsy of the right liver mass, moderately differentiated adenocarcinoma consistent with colorectal primary. KRAS mutation not detected BRAF mutation not detected. NRAS negative, MSI proficient or MSI stable. He developed bowel obstruction, palliative bypass ileostomy has been performed in November 2018. He started on mFOLFOX/Avastin regimen from 11/27/2018. His last treatment cycle 13 was on 05/14/2019. 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 Repeat CT abdomen/pelvis on 09/18/2019 showed further decrease in size of liver metastasis. He was on maintenance Xeloda 1500 mg p.o. b.i.d. 2 weeks on/1 week off, along with bevacizumab Q 3 weeks starting 10/22/2019 until 12/13/2020. Rising CEA as well as imaging in November 2020 showed evidence of progressive disease. He started irinotecan with bevacizumab from December 2020. Interval History Interval history: Patient is here in follow-up. He is feeling much better now. He finished course of doxycycline. His appetite is slowly improving. He is here to talk about his scans and further treatment. Review of Systems - Constitutional Reports as per HPI, Reports fatigue, Reports malaise [facility] Medical History: Medical History (Last Reviewed 08/08/23 @ 14:37 by Jim Camacho) Chronic respiratory failure Colon cancer metastasized to liver Colon cancer metastasized to liver ILD (interstitial lung disease) Pulmonary fibrosis Pulmonary nodule Tubular adenoma Family History: Family History (Last Reviewed 08/08/23 @ 14:37 by Jim Camacho) Son Cystic fibrosis Brother Esophageal cancer Maternal Aunt Lung cancer Surgical History: Surgical History (Last Reviewed 08/08/23 @ 14:37 by Jim Camacho) H/O knee surgery Social History: Social History (Last Reviewed 08/08/23 @ 14:37 by Jim Camacho) Living Situation History: Household Members: Family Housing: House Do you presently have visiting nurse or other home services: Yes Do you presently have visiting nurse or other home services comment: son s girlfriend is [employer]. 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 [employer] Home Medications and Allergies Home Medications Medication Instructions Recorded Confirmed Type acetaminophen 650 mg 650 mg PO Q6H PRN Pain 08/04/22 08/08/23 History tablet,extended release omeprazole 40 mg capsule,delayed 40 mg PO DAILY@0630 08/04/22 08/08/23 History release Allergies Allergy/AdvReac Type Severity Reaction Status Date / Time prednisone [PREDNISONE] AdvReac Intermediate Psychosis Verified 08/08/23 14:38 Exam Vital signs: Vital Signs Temp 97.3 F 07/31/23 09:24 Pulse 96 07/31/23 09:24 Resp 18 07/31/23 09:24 BP 135/90 H 07/31/23 09:24 Pulse Ox 93 07/31/23 09:24 O2 Del Method Room Air 07/31/23 09:24 Weight 60.2 kg BMI result Body Mass Index 18.5 - Constitutional Present: no acute distress - Routine HEENT Exam Head: Present: normal inspection - Routine Neck Exam Present: full ROM. Absent: lymphadenopathy - Routine Respiratory Exam Present: CTAB - Routine Cardiovascular Exam Cardiovascular: Present: RRR, S1, S2 - Routine Abdominal Exam Present: normal bowel sounds, soft. Absent: mass, organomegaly - Routine Extremities Exam Present: full ROM. Absent: calf tenderness, pedal edema - Routine Skin Exam Present: intact. Absent: cyanosis, erythema - Routine Neurological Exam Present: alert, oriented X3 Data - Labs CBC & Chem 7: 07/31/23 09:15 07/31/23 09:15 Assessment and Plan Patient Active problem list reviewed?: Yes (1) Colon cancer metastasized to liver Status: Inactive Assessment and plan: 1. This is a 63-year-old gentleman, with metastatic colon carcinoma, ? cecal/rt colon primary with liver and lung metastases. Biopsy of the liver lesion, Moderately differentiated adenocarcinoma. KRAS and BRAF negative. NRAS negative, MSI proficient or MSI stable. HER2 and panTRK negative. Initial CEA elevated at 91. He developed bowel obstruction, palliative bypass ileostomy has been performed in November 2018. He started on mFOLFOX/Avastin regimen from 11/27/2018. His last treatment cycle 13 was on 05/14/2019. He was on maintenance Xeloda 1500 mg p.o. b.i.d. 2 weeks on/1 week off, along with bevacizumab Q 3 weeks starting 10/22/2019 until 12/13/2020. Rising CEA as well as imaging in November 2020 showed evidence of progressive disease. He started irinotecan with bevacizumab from December 2020 until 07/2022. CT chest/ abdomen and pelvis in July 2022 showed progression in lung nodules. CEA penelope to 18.8 NG/mL. Treatment was changed to FOLFIRI Avastin. Repeat CT chest/abdomen pelvis with IV contrast shows mild progression and bilateral lung nodules as well as a solitary liver lesion that has grown slightly in size. 2. 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 He has been tapered off prednisone and CellCept. He is also off the oxygen. 3. Chronic arthralgias. He is on MSContin 30 mg b.i.d. He is on oxycodone 5 mg for breakthrough pain 2 to 3 times a day. He has right-sided low back pain, probably muscular. 4. Intermittent elevation of bilirubin, indirect bilirubinemia, probable Gilbert's syndrome. 5. Acute renal failure with hyperkalemia. He was admitted to the hospital earlier, nephrology consult was obtained. Imaging did not reveal hydronephrosis or obstructive uropathy. His acute kidney injury was related to prerenal azotemia secondary to poor intake and pneumonia. He was treated with IV hydration and antibiotics for pneumonia. He is feeling better now. His kidney functions have normalized. CT chest has shown disease progression with increase in size of bilateral pulmonary nodules. He is also being treated for pneumonia at this time. PET-CT was recommended. This has been ordered. CEA level is also rising. If he has disease progression, I will change his treatment to Lonsurf (trifluridine and tipiracil) with Avastin. Based on his initial CT scan patient appears to have right-sided colon cancer and therefore will avoid EGFR inhibitors at this time. Follow-up in 1 month. - Time Spent With Patient Time Spent with Patient (in minutes): 20
[2023-08-08 14:38] VITALS: BP 131/70; PULSE 81; O2SAT 95; BMI 18.1
--- NOTE | 2023-08-08 15:53 | HO.HEMONCPA ---
NO PA NEEDED FOR PET/CT [id number] SENT TO [facility] FOR SCHEDULING
--- NOTE | 2023-08-09 12:36 | HO.HEMONCSCH ---
Patient scheduled for Pet/CT [id number] with [facility] on August 14 at 11:15am
[2023-08-15 09:25] LABS: MANUAL DIFF FLAG NO
[2023-08-15 09:27] LABS: Basophils Absolute Auto 0.1 X10*3/uL (0.0-0.2); Basophils Percent Auto 0.7 % (0-2); Eosinophils Absolute Auto 0.3 X10*3/uL (0.0-0.4); Eosinophils Percent Auto 3.5 % (0-4); Hematocrit 30.1 % (42.0-52.0); Hemoglobin 9.7 g/dl (14.0-18.0); Imm Gran Abs Auto 0.07 X10*3/uL (0.00-0.03); Imm Gran Pct Auto 0.8 % (0.0-0.4); Lymphocytes Absolute Auto 1.4 X10*3/uL (1.2-4.9); Lymphocytes Percent Auto 15.8 % (20-40); Mean Corpuscular HGB Conc 32.2 g/dl (31.0-36.0); Mean Corpuscular Hemoglobin 30.3 pg (27.0-33.0); Mean Corpuscular Volume 94.1 fL (80.0-98.0); Monocytes Absolute Auto 0.7 X10*3/uL (0.1-1.2); Monocytes Percent Auto 7.4 % (2-11); Neutrophils Absolute Auto 6.4 x10*3/uL (2.0-8.3); Neutrophils Percent Auto 71.8 % (45-73); Platelet Count 130 X10*3/uL (160-400); Red Cell Distribution Width 16.6 % (11.0-16.0); White Blood Count 8.9 X10*3/uL (4.8-10.8)
[2023-08-15 09:56] LABS: Alanine Aminotransferase 24 U/L (0-40); Albumin Level 2.5 g/dL (3.5-5.0); Alkaline Phosphatase 119 U/L (39-117); Anion Gap 8 (12-20); Aspartate Amino Transferase 48 U/L (5-37); Bilirubin Total 0.6 mg/dL (0.0-1.0); Blood Urea Nitrogen 13 mg/dL (9-16); Calcium 8.9 mg/dL (8.4-10.2); Carbon Dioxide 21 mmol/L (22-29); Chloride 111 mmol/L (96-108); Creatinine Clr Calc Pharmacy 78.7; Estimated Glomerular Filt Rate > 60; Glucose Random 96 mg/dL (60-115); Potassium 4.2 mmol/L (3.3-5.1); Sodium 136 mmol/L (135-145); Total Protein 7.5 g/dL (6.5-8.0)
--- NOTE | 2023-08-15 12:18 | MHC.HEMONC ---
repeat labs show improvement. pt report starting to feel better. refill request for ms villavicencio given to dr hay. pt aware treatment might change pending pet scan results
--- NOTE | 2023-08-16 12:53 | MHC.HEMONC ---
Triage call-pt called requesting refill on ms contin 30mg-request given to Dr Friend
[2023-08-20 10:12] VITALS: BP 108/67; PULSE 88; RESP 18; TEMP 36.4; O2SAT 96; BMI 18.8
[2023-08-20] MEDS: IRINOTECAN HCL IV (12:51)
[2023-08-20] MEDS: DEXTROSE 5% IV ×2 (12:51→12:56)
[2023-08-20] MEDS: LEUCOVORIN CALCIUM IV (12:56)
--- NOTE | 2023-08-20 12:58 | PM.HEMONCPN ---
Medical Summary - Medical Summary Date of Service: 08/20/23 Chief complaint: None reported Primary Care Provider: Jono Headley MD Medical Summary: Metastatic colon cancer diagnosed in October 2018. Presented with abdominal pain, 30 pound weight loss and severe pain. He had abnormal colonoscopy in 2009. He was told he needed a repeat colonoscopy in 5 years but he did not go for testing. CT abdomen/pelvis with IV contrast shows multiple areas of wall thickening in the sigmoid colon as well as thickening and enhancement of cecum, terminal ileum. Long segment of wall thickening of the distal transverse colon and left colon. Enlarged mesenteric and retroperitoneal lymph nodes, multiple liver metastasis and lung metastasis, all of these worrisome for metastatic colorectal malignancy. 11/01/18-Core biopsy of the right liver mass, moderately differentiated adenocarcinoma consistent with colorectal primary. KRAS mutation not detected BRAF mutation not detected. NRAS negative, MSI proficient or MSI stable. He developed bowel obstruction, palliative bypass ileostomy has been performed in November 2018. He started on mFOLFOX/Avastin regimen from 11/27/2018. His last treatment cycle 13 was on 05/14/2019. 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 Repeat CT abdomen/pelvis on 09/18/2019 showed further decrease in size of liver metastasis. He was on maintenance Xeloda 1500 mg p.o. b.i.d. 2 weeks on/1 week off, along with bevacizumab Q 3 weeks starting 10/22/2019 until 12/13/2020. Rising CEA as well as imaging in November 2020 showed evidence of progressive disease. He started irinotecan with bevacizumab from December 2020. Interval History Interval history: Patient is here in follow-up. He just had PET scan and is here to discuss results as well as scheduled treatment. He feels okay, ongoing malaise and poor appetite but no acute complaints. He denies any fever or chills. No abdominal discomfort or change in bowel habits. [facility] Medical History: Medical History (Last Reviewed 08/08/23 @ 14:37 by Jim Camacho) Chronic respiratory failure Colon cancer metastasized to liver Colon cancer metastasized to liver Colon cancer metastasized to liver ILD (interstitial lung disease) Pulmonary fibrosis Pulmonary nodule Tubular adenoma Family History: Family History (Last Reviewed 08/08/23 @ 14:37 by Jim Camacho) Son Cystic fibrosis Brother Esophageal cancer Maternal Aunt Lung cancer Surgical History: Surgical History (Last Reviewed 08/08/23 @ 14:37 by Jim Camacho) H/O knee surgery Social History: Social History (Last Reviewed 08/08/23 @ 14:37 by Jim Camacho) Living Situation History: Household Members: Family Housing: House Do you presently have visiting nurse or other home services: Yes Do you presently have visiting nurse or other home services comment: son s girlfriend is [employer]. Tobacco History: Patient Tobacco Use Status: Former Tobacco user Tobacco use type: Cigarette e-Cigarette/Vaping Use: Former Use Second Hand Smoke Exposure: No Substance Use History: Use of substances other than those prescribed or required for medical reasons: No Substance Use Type: Marijuana Advance Directives: Advance Directives: Yes Advance Directives Information Provided: No Advance Directives on File: Yes Advance Directives Date on File: 12/12/22 Nutrition Assessment: Recently lost weight without trying: No Occupation Assessmet: service: No Current occupational status: employed Current occupation: [employer] Medications and Allergies Current Medications: Current Medications Acetaminophen (Acetaminophen 325 Mg Tablet) 650 mg PO ONCE PINEDA Stop: 08/20/23 23:59 Last Admin: 08/20/23 10:42 Dose: 650 mg Atropine Sulfate (Atropine Sulfate 1 Mg/Ml Vial) 0.5 mg SUBCUT ONCE PINEDA Stop: 08/20/23 23:59 Last Admin: 08/20/23 10:43 Dose: 0.5 mg Diphenhydramine HCl (Diphenhydramine Hcl 25 Mg Capsule) 25 mg PO ONCE PINEDA Stop: 08/20/23 23:59 Last Admin: 08/20/23 10:43 Dose: 25 mg Dexamethasone Sodium Phosphate (Decadron) 12 mg in 50 mls @ 200 mls/hr IV ONCE PINEDA Stop: 08/20/23 23:59 Last Admin: 08/20/23 10:43 Dose: 200 mls/hr Ondansetron HCl (Zofran) 16 mg in 50 mls @ 200 mls/hr IV ONCE PINEDA Stop: 08/20/23 23:59 Last Admin: 08/20/23 10:43 Dose: 200 mls/hr Fosaprepitant 150 mg/ Sodium (Chloride) 150 mls @ 300 mls/hr IV ONCE PINEDA Stop: 08/20/23 23:59 Last Admin: 08/20/23 10:43 Dose: 300 mls/hr Bevacizumab 300 mg/ Sodium (Chloride) 100 mls @ 200 mls/hr IV ONCE PINEDA Stop: 08/20/23 23:59 Last Admin: 08/20/23 12:07 Dose: 200 mls/hr Fluorouracil 3,400 mg/ Sodium (Chloride) 92 mls @ 2 mls/hr IV ONCE PINEDA Stop: 08/20/23 23:59 Fluorouracil 575 mg/ IV (Miscellaneous Supplies) 11.5 mls @ 138 mls/hr IVPUSH ONCE PINEDA Stop: 08/20/23 23:59 Irinotecan HCl 260 mg/ (Dextrose) 513 mls @ 342 mls/hr IV ONCE PINEDA Stop: 08/20/23 23:59 Last Admin: 08/20/23 12:51 Dose: 342 mls/hr Leucovorin Calcium 570 mg/ (Dextrose) 278.5 mls @ 185.667 mls/hr IV ONCE PINEDA Stop: 08/20/23 23:59 Last Admin: 08/20/23 12:56 Dose: 185.67 mls/hr Home Medications Medication Instructions Recorded Confirmed Type acetaminophen 650 mg 650 mg PO Q6H PRN Pain 08/04/22 08/08/23 History tablet,extended release omeprazole 40 mg capsule,delayed 40 mg PO DAILY@0630 08/04/22 08/08/23 History release Allergies Allergy/AdvReac Type Severity Reaction Status Date / Time prednisone [PREDNISONE] AdvReac Intermediate Psychosis Verified 08/08/23 14:38 Exam Vital signs: Vital Signs Temp 97.6 F 08/20/23 10:12 Pulse 88 08/20/23 10:12 Resp 18 08/20/23 10:12 BP 108/67 08/20/23 10:12 Pulse Ox 96 08/20/23 10:12 O2 Del Method Room Air 08/20/23 10:12 Intake & Output 08/19/23 08/20/23 08/20/23 18:59 06:59 18:59 Other: Weight 61.1 kg [place] Weight in Grams 86520 Weight 61.1 kg BMI result Body Mass Index 18.8 - Constitutional Present: no acute distress - Routine HEENT Exam Head: Present: normal inspection - Routine Neck Exam Present: full ROM. Absent: lymphadenopathy - Routine Respiratory Exam Present: CTAB - Routine Cardiovascular Exam Cardiovascular: Present: RRR, S1, S2 - Routine Abdominal Exam Present: normal bowel sounds, soft. Absent: mass, organomegaly - Routine Extremities Exam Present: full ROM. Absent: calf tenderness, pedal edema - Routine Skin Exam Present: intact. Absent: cyanosis, erythema - Routine Neurological Exam Present: alert, oriented X3 Data - Labs CBC & Chem 7: 08/20/23 10:00 08/20/23 10:00 Assessment and Plan Patient Active problem list reviewed?: Yes (1) Colon cancer metastasized to liver Status: Inactive Assessment and plan: 1. This is a 63-year-old gentleman, with metastatic colon carcinoma, ? cecal/rt colon primary with liver and lung metastases. Biopsy of the liver lesion, Moderately differentiated adenocarcinoma. KRAS and BRAF negative. NRAS negative, MSI proficient or MSI stable. HER2 and panTRK negative. Initial CEA elevated at 91. He developed bowel obstruction, palliative bypass ileostomy has been performed in November 2018. He started on mFOLFOX/Avastin regimen from 11/27/2018. His last treatment cycle 13 was on 05/14/2019. He was on maintenance Xeloda 1500 mg p.o. b.i.d. 2 weeks on/1 week off, along with bevacizumab Q 3 weeks starting 10/22/2019 until 12/13/2020. Rising CEA as well as imaging in November 2020 showed evidence of progressive disease. He started irinotecan with bevacizumab from December 2020 until 07/2022. CT chest/ abdomen and pelvis in July 2022 showed progression in lung nodules. CEA penelope to 18.8 NG/mL. Treatment was changed to FOLFIRI Avastin. Repeat CT chest/abdomen pelvis with IV contrast shows mild progression and bilateral lung nodules as well as a solitary liver lesion that has grown slightly in size. 2. 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 He has been tapered off prednisone and CellCept. He is also off the oxygen. 3. Chronic arthralgias. He is on MSContin 30 mg b.i.d. He is on oxycodone 5 mg for breakthrough pain 2 to 3 times a day. He has right-sided low back pain, probably muscular. 4. Intermittent elevation of bilirubin, indirect bilirubinemia, probable Gilbert's syndrome. 5. Acute renal failure with hyperkalemia. He was admitted to the hospital earlier, nephrology consult was obtained. Imaging did not reveal hydronephrosis or obstructive uropathy. His acute kidney injury was related to prerenal azotemia secondary to poor intake and pneumonia. He was treated with IV hydration and antibiotics for pneumonia. He is feeling better now. His kidney functions have normalized. CT chest has shown disease progression with increase in size of bilateral pulmonary nodules. CEA level now above 50. PET-CT performed 08/14/2023 showed left upper lobe lung nodule measuring 2.2 cm with SUV 6.8, multiple lesions throughout both lobes of liver largest measuring 5.3 x 2.7 cm with SUV is 5.3. As he has disease progression, I will change his treatment to Lonsurf (trifluridine and tipiracil) with Avastin. Dose of Lonsurf is 60 mg b.i.d. day 1-5 and day 8-12 Q 28 day cycle. Avastin will be administered D1 and 15. He will be monitored closely for myelosuppression. New treatment regimen will be started on 09/03/23. Follow-up in 1 month. - Time Spent With Patient Time Spent with Patient (in minutes): 15
--- NOTE | 2023-08-20 13:17 | MHC.HEMONC ---
Dr Mckee asked to send lonsurf rx to [facility]
--- NOTE | 2023-08-20 14:15 | MHC.HEMONC ---
c24d1 avastin/folfiri today. Labs and urine results reviewed, ok to proceed. Premeds and chemo given via right chest port, tolerated well. Per Dr Mckee, pt to change to lonsurf and avastin next cycle (09/03/23). Lonsurf teaching completed and all questions answered. He will bring the lonsurf with him to the 09/03/23 appointment. Pt aware of next appt, discharge packet provided.
[2023-08-22] MEDS: Heparin Sodium,Porcine Flush 500 UNIT/5 ML SYRINGE IVFLUSH (12:17)
[2023-08-22 12:21] VITALS: BP 104/53; PULSE 77
[2023-09-03 08:00] VITALS: BP 133/60; PULSE 89; RESP 18; TEMP 36.3; O2SAT 95; BMI 19.3
[2023-09-03 08:21] LABS: MANUAL DIFF FLAG NO
[2023-09-03 08:23] LABS: Basophils Percent Auto 0.7 % (0-2); Eosinophils Absolute Auto 0.2 X10*3/uL (0.0-0.4); Eosinophils Percent Auto 6.6 % (0-4); Hematocrit 30.1 % (42.0-52.0); Hemoglobin 9.7 g/dl (14.0-18.0); Lymphocytes Absolute Auto 0.9 X10*3/uL (1.2-4.9); Lymphocytes Percent Auto 31.3 % (20-40); Mean Corpuscular HGB Conc 32.2 g/dl (31.0-36.0); Mean Corpuscular Hemoglobin 30.6 pg (27.0-33.0); Mean Platelet Volume 11.3 fL (9.4-12.4); Monocytes Absolute Auto 0.3 X10*3/uL (0.1-1.2); Monocytes Percent Auto 12.5 % (2-11); Neutrophils Absolute Auto 1.3 x10*3/uL (2.0-8.3); Neutrophils Percent Auto 48.9 % (45-73); Platelet Count 129 X10*3/uL (160-400); Red Blood Count 3.17 X10*6/uL (4.60-5.80); Red Cell Distribution Width 18.4 % (11.0-16.0); White Blood Count 2.7 X10*3/uL (4.8-10.8)
[2023-09-03 08:24] LABS: Appearance Urine Clear; Color Urine Yellow; Glucose Urine UA Negative (Negative); Leukocyte Esterase Urine Negative (Negative); Nitrite Urine Negative (Negative); PH 5.5 (5.0-9.0); Urine Blood Negative (Negative); Urine Ketones Negative (Negative); Urine Protein Negative (Neg-Trace)
[2023-09-03 08:44] LABS: Alanine Aminotransferase 37 U/L (0-40); Albumin Level 2.9 g/dL (3.5-5.0); Alkaline Phosphatase 131 U/L (39-117); Anion Gap 9 (12-20); Aspartate Amino Transferase 46 U/L (5-37); Bilirubin Total 0.8 mg/dL (0.0-1.0); Blood Urea Nitrogen 9 mg/dL (9-16); Calcium 8.7 mg/dL (8.4-10.2); Carbon Dioxide 24 mmol/L (22-29); Chloride 107 mmol/L (96-108); Creatinine Clr Calc Pharmacy 87.3; Estimated Glomerular Filt Rate > 60; Glucose Random 135 mg/dL (60-115); Potassium 3.6 mmol/L (3.3-5.1); Sodium 136 mmol/L (135-145); Total Protein 6.8 g/dL (6.5-8.0)
[2023-09-03] MEDS: diphenhydrAMINE HCL 25 MG CAPSULE PO (09:46)
[2023-09-03] MEDS: Ondansetron ODT 8 MG TAB.RAPDIS TRANSLINGU (09:46)
[2023-09-03] MEDS: Heparin Sodium,Porcine Flush 500 UNIT/5 ML SYRINGE IVFLUSH (09:46)
[2023-09-03] MEDS: Acetaminophen 325 MG TABLET 650 MG PO (09:47)
[2023-09-03] MEDS: SODIUM CHLORIDE 0.9% IV (10:18)
[2023-09-03] MEDS: BEVACIZUMAB IV (10:18)
--- NOTE | 2023-09-03 11:24 | MHC.HEMONC ---
Pt here for C1D1 Avastin, Lonsurf. Follow up moved to next treatment. Pt reports feeling well. Pt Did not bring lonsurf this am but will take as soon as he gets home and again tonight. Pt verbalized understanding when to take lonsurf on days 1-5 and 8-12. States has ganged some weight. VSS. Port to right chest accessed, good blood return. Labs drawn and reviewed with DR Mckee. WBC 2.7, ANC 1.3 ok to treat per Dr Mckee. Only pre med ordered was zofran. Per Dr Mckee pt to get Zofran 8mg po, Tylenol 650mg po and Benadryl 25mg po. Avastin infused. Pt tolerated tx well. Port de accessed with heparin. Discharge summary given with next treatment 2 weeks. Pt departed with brisk steady gait.
--- NOTE | 2023-09-13 11:00 | MHC.HEMONC ---
Addendum entered by India Sevilla RN 09/13/23 12:17: Prescription sent- patient notified over phone. Original Note: Triage call: Refill request for Morphine 30mg PO BID given to Dr. Friend (covering for Dr. Mckee)
[2023-09-17 08:06] VITALS: BP 135/63; PULSE 91; RESP 18; TEMP 36.3; O2SAT 94; BMI 19.4
[2023-09-17 08:30] LABS: MANUAL DIFF FLAG NO
[2023-09-17 08:33] LABS: Appearance Urine Clear; Color Urine Dark Yellow; Glucose Urine UA Negative (Negative); Leukocyte Esterase Urine Negative (Negative); Nitrite Urine Negative (Negative); PH 5.5 (5.0-9.0); Specific Gravity - Urine 1.025 (1.005-1.025); Urine Blood Negative (Negative); Urine Ketones Negative (Negative); Urine Protein Negative (Neg-Trace)
[2023-09-17 08:34] LABS: Basophils Percent Auto 0.6 % (0-2); Eosinophils Percent Auto 0.8 % (0-4); Hematocrit 25.3 % (42.0-52.0); Hemoglobin 8.3 g/dl (14.0-18.0); Imm Gran Abs Auto 0.03 X10*3/uL (0.00-0.03); Imm Gran Pct Auto 0.8 % (0.0-0.4); Lymphocytes Absolute Auto 0.6 X10*3/uL (1.2-4.9); Lymphocytes Percent Auto 17.1 % (20-40); Mean Corpuscular HGB Conc 32.8 g/dl (31.0-36.0); Mean Corpuscular Hemoglobin 31.3 pg (27.0-33.0); Mean Corpuscular Volume 95.5 fL (80.0-98.0); Mean Platelet Volume 11.4 fL (9.4-12.4); Monocytes Absolute Auto 0.1 X10*3/uL (0.1-1.2); Monocytes Percent Auto 3.3 % (2-11); Neutrophils Absolute Auto 2.8 x10*3/uL (2.0-8.3); Neutrophils Percent Auto 77.4 % (45-73); Platelet Count 132 X10*3/uL (160-400); Red Blood Count 2.65 X10*6/uL (4.60-5.80); Red Cell Distribution Width 17.8 % (11.0-16.0); White Blood Count 3.6 X10*3/uL (4.8-10.8)
[2023-09-17 08:47] LABS: Alanine Aminotransferase 19 U/L (0-40); Albumin Level 3.1 g/dL (3.5-5.0); Alkaline Phosphatase 102 U/L (39-117); Anion Gap 10 (12-20); Aspartate Amino Transferase 37 U/L (5-37); Bilirubin Total 1.8 mg/dL (0.0-1.0); Blood Urea Nitrogen 15 mg/dL (9-16); Calcium 8.7 mg/dL (8.4-10.2); Carbon Dioxide 23 mmol/L (22-29); Chloride 106 mmol/L (96-108); Creatinine Clr Calc Pharmacy 90.1; Estimated Glomerular Filt Rate > 60; Glucose Random 153 mg/dL (60-115); Sodium 135 mmol/L (135-145); Total Protein 6.5 g/dL (6.5-8.0)
[2023-09-17] MEDS: Ondansetron ODT 8 MG TAB.RAPDIS TRANSLINGU (09:09)
[2023-09-17] MEDS: Heparin Sodium,Porcine Flush 500 UNIT/5 ML SYRINGE IVFLUSH (09:10)
[2023-09-17] MEDS: Acetaminophen 325 MG TABLET 650 MG PO (10:04)
[2023-09-17] MEDS: diphenhydrAMINE HCL 50 MG/ML VIAL 25 MG IVPUSH (10:04)
--- NOTE | 2023-09-17 10:08 | P.PNHO-ONC_ITS ---
Medical Summary - Medical Summary Date of Service: 09/17/23 Chief complaint: Follow-up and scheduled treatment Primary Care Provider: Jono Headley MD Medical Summary: Metastatic colon cancer diagnosed in October 2018. Presented with abdominal pain, 30 pound weight loss and severe pain. He had abnormal colonoscopy in 2009. He was told he needed a repeat colonoscopy in 5 years but he did not go for testing. CT abdomen/pelvis with IV contrast shows multiple areas of wall thickening in the sigmoid colon as well as thickening and enhancement of cecum, terminal ileum. Long segment of wall thickening of the distal transverse colon and left colon. Enlarged mesenteric and retroperitoneal lymph nodes, multiple liver metastasis and lung metastasis, all of these worrisome for metastatic colorectal malignancy. 11/01/18-Core biopsy of the right liver mass, moderately differentiated adenocarcinoma consistent with colorectal primary. KRAS mutation not detected BRAF mutation not detected. NRAS negative, MSI proficient or MSI stable. He developed bowel obstruction, palliative bypass ileostomy has been performed in November 2018. He started on mFOLFOX/Avastin regimen from 11/27/2018. His last treatment cycle 13 was on 05/14/2019. 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 Repeat CT abdomen/pelvis on 09/18/2019 showed further decrease in size of liver metastasis. He was on maintenance Xeloda 1500 mg p.o. b.i.d. 2 weeks on/1 week off, along with bevacizumab Q 3 weeks starting 10/22/2019 until 12/13/2020. Rising CEA as well as imaging in November 2020 showed evidence of progressive disease. He started irinotecan with bevacizumab from December 2020. Interval History Interval history: Patient is here in follow-up. He has been taking Lonsurf and tolerating it well. He denies any fever or chills. No abdominal discomfort or change in bowel habits. He feels quite well overall. Review of Systems - Constitutional Reports as per HPI, Denies lack of energy, Denies malaise - Cardiovascular Reports no additional cardiovascular complaints - Respiratory Reports no additional respiratory complaints - Gastrointestinal Reports no additional gastrointestinal complaints [facility] Medical History: Medical History (Last Reviewed 08/08/23 @ 14:37 by Jim Camacho) Chronic respiratory failure Colon cancer metastasized to liver Colon cancer metastasized to liver Colon cancer metastasized to liver Encounter for ostomy care education Hyponatremia ILD (interstitial lung disease) Multifocal pneumonia Pulmonary fibrosis Pulmonary nodule Tubular adenoma Family History: Family History (Last Reviewed 08/08/23 @ 14:37 by Jim Camacho) Son Cystic fibrosis Brother Esophageal cancer Maternal Aunt Lung cancer Surgical History: Surgical History (Last Reviewed 08/08/23 @ 14:37 by Jim Camacho) H/O knee surgery Social History: Social History (Last Reviewed 08/08/23 @ 14:37 by Jim Camacho) Living Situation History: Household Members: Family Housing: House Do you presently have visiting nurse or other home services: Yes Do you presently have visiting nurse or other home services comment: son s girlfriend is [employer]. Tobacco History: Patient Tobacco Use Status: Former Tobacco user Tobacco use type: Cigarette e-Cigarette/Vaping Use: Former Use Second Hand Smoke Exposure: No Substance Use History: Use of substances other than those prescribed or required for medical reasons : No Substance Use Type: Marijuana Advance Directives: Advance Directives: Yes Advance Directives Information Provided: No Advance Directives on File: Yes Advance Directives Date on File: 12/12/22 Nutrition Assessment: Recently lost weight without trying: No Occupation Assessmet: service: No Current occupational status: employed Current occupation: [employer] Medications and Allergies Current Medications: Current Medications Heparin Sodium (Porcine) (Heparin Sodium,Porcine Flush 500 Unit/5 Ml Syringe) 500 unit IVFLUSH ONCE [facility] Stop: 09/17/23 23:59 Last Admin: 09/17/23 09:10 Dose: 500 unit Bevacizumab 300 mg/ Sodium (Chloride) 100 mls @ 200 mls/hr IV ONCE PINEDA Stop: 09/17/23 23:59 Ondansetron HCl (Ondansetron Odt 8 Mg Tab.Rapdis) 8 mg TRANSLINGU ONCE PINEDA Stop: 09/17/23 23:59 Last Admin: 09/17/23 09:09 Dose: 8 mg Home Medications Medication Instructions Recorded Confirmed Type acetaminophen 650 mg 650 mg PO Q6H PRN Pain 08/04/22 08/08/23 History tablet,extended release Allergies Allergy/AdvReac Type Severity Reaction Status Date / Time prednisone [PREDNISONE] AdvReac Intermediate Psychosis Verified 08/08/23 14:38 Exam Vital signs: Vital Signs Temp 97.4 F 09/17/23 08:06 Pulse 91 09/17/23 08:06 Resp 18 09/17/23 08:06 BP 135/63 09/17/23 08:06 Pulse Ox 94 09/17/23 08:06 O2 Del Method Room Air 09/17/23 08:06 Intake & Output 09/16/23 09/17/23 09/17/23 18:59 06:59 18:59 Other: Weight 63.2 kg [place] Weight in Grams 75071 Weight 63.2 kg BMI result Body Mass Index 19.4 - Constitutional Present: no acute distress - Routine HEENT Exam Head: Present: normal inspection - Routine Neck Exam Present: full ROM. Absent: lymphadenopathy - Routine Respiratory Exam Present: CTAB - Routine Cardiovascular Exam Cardiovascular: Present: RRR, S1, S2 - Routine Abdominal Exam Present: normal bowel sounds, soft. Absent: mass, organomegaly - Routine Extremities Exam Present: full ROM. Absent: calf tenderness, pedal edema - Routine Skin Exam Present: intact. Absent: cyanosis, erythema - Routine Neurological Exam Present: alert, oriented X3 Data - Labs CBC & Chem 7: 09/17/23 08:15 09/17/23 08:15 Assessment and Plan Patient Active problem list reviewed?: Yes (1) Colon cancer metastasized to liver Status: Inactive Assessment and plan: 1. This is a 63-year-old gentleman, with metastatic colon carcinoma, ? cecal/rt colon primary with liver and lung metastases. Biopsy of the liver lesion, Moderately differentiated adenocarcinoma. KRAS and BRAF negative. NRAS negative, MSI proficient or MSI stable. HER2 and panTRK negative. Initial CEA elevated at 91. He developed bowel obstruction, palliative bypass ileostomy has been performed in November 2018. He started on mFOLFOX/Avastin regimen from 11/27/2018. His last treatment cycle 13 was on 05/14/2019. He was on maintenance Xeloda 1500 mg p.o. b.i.d. 2 weeks on/1 week off, along with bevacizumab Q 3 weeks starting 10/22/2019 until 12/13/2020. Rising CEA as well as imaging in November 2020 showed evidence of progressive disease. He started irinotecan with bevacizumab from December 2020 until 07/2022. CT chest/ abdomen and pelvis in July 2022 showed progression in lung nodules. CEA penelope to 18.8 NG/mL. Treatment was changed to FOLFIRI Avastin. 2. 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 He has been tapered off prednisone and CellCept. He is also off the oxygen. 3. Chronic arthralgias. He is on MSContin 30 mg b.i.d. He is on oxycodone 5 mg for breakthrough pain 2 to 3 times a day. He has right-sided low back pain, probably muscular. 4. Intermittent elevation of bilirubin, indirect bilirubinemia, probable Gilbert's syndrome. 5. Acute renal failure with hyperkalemia. He was admitted to the hospital earlier, nephrology consult was obtained. Imaging did not reveal hydronephrosis or obstructive uropathy. His acute kidney injury was related to prerenal azotemia secondary to poor intake and pneumonia. He was treated with IV hydration and antibiotics for pneumonia. He is feeling better now. His kidney functions have normalized. CT chest has shown disease progression with increase in size of bilateral pulmonary nodules. CEA level now above 50. PET-CT performed 08/14/2023 showed left upper lobe lung nodule measuring 2.2 cm with SUV 6.8, multiple lesions throughout both lobes of liver largest measuring 5.3 x 2.7 cm with SUV is 5.3. Because of disease progression, he has been switched to Lonsurf (trifluridine and tipiracil) with Avastin in the 3rd line setting from 09/03/2023. Dose of Lonsurf is 60 mg b.i.d. day 1-5 and day 8-12 Q 28 day cycle. Avastin will be administered D1 and 15. He will be monitored closely for myelosuppression. He is tolerating treatment well, proceed today. Follow-up in 1 month. - Time Spent With Patient Time Spent with Patient (in minutes): 15
[2023-09-17] MEDS: SODIUM CHLORIDE 0.9% IV (10:09)
[2023-09-17] MEDS: BEVACIZUMAB IV (10:09)
--- NOTE | 2023-09-17 14:00 | MHC.HEMONC ---
Pt here for C1D15 Bevacizumab/Lansurf. Port accessed with blood return noted-labs drawn from port. Urine specimen obtained-all specimens sent to lab. Pt states he feels well today-states his appetite is good, has some fatigue. Lab results reviewed, bili level 1.[address] Mckee-leida to receive treatment today. Pre medicated with tylenol, zofran, benadryl. Bevacizumab given as ordered-tolerated well. Pt states he is tolerating Lonsurf medication and taking as directed. Port flushed with heparin and de accessed. Dr Mckee into see pt. Discharge packet given with next appointment scheduled. Declines wheelchair for discharge
--- NOTE | 2023-09-21 10:41 | HO.HEMONCPA ---
Addendum entered by Jo Samaniego 09/21/23 13:37: PA APPROVED FOR BEVACIZUMAB [id number] AUTH # [id number] DOS 09/17/23 - 09/16/24 28 VISITS Original Note: PA PENDING FOR BEVACIZUMAB [id number] AWAITING DECISION FROM [facility] Patient's insurance changed on 09/13/23 from Medicare/Medicaid to [facility] PA now required
--- NOTE | 2023-09-21 17:05 | MHC.HEMONC ---
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 Nurse replied to Selena's call, told her no fax had been received, but would make inquiries w/ [facility] on Sunday.
[2023-09-28 10:39] VITALS: BP 154/74; RESP 19; TEMP 38.9; O2SAT 98
[2023-09-28 10:41] LABS: Mean Corpuscular Hemoglobin 31.1 pg (27.0-33.0); Mean Corpuscular Volume 86.3 fL (80.0-98.0); Red Cell Distribution Width 15.8 % (11.0-16.0)
[2023-09-28 10:44] LABS: Hemoglobin 5.9 g/dl (14.0-18.0)
[2023-09-28 10:45] LABS: Hematocrit 16.4 % (42.0-52.0); Platelet Count 49 X10*3/uL (160-400); WBC ABN SCTR FOR CBC 1; White Blood Count 0.9 X10*3/uL (4.8-10.8)
[2023-09-28 10:54] LABS: Alanine Aminotransferase 13 U/L (0-40); Albumin Level 3.5 g/dL (3.5-5.0); Alkaline Phosphatase 126 U/L (39-117); Anion Gap 16 (12-20); Aspartate Amino Transferase 21 U/L (5-37); Bilirubin Total 3.7 mg/dL (0.0-1.0); Blood Urea Nitrogen 32 mg/dL (9-16); Calcium 9.1 mg/dL (8.4-10.2); Carbon Dioxide 19 mmol/L (22-29); Chloride 100 mmol/L (96-108); Creatinine Clr Calc Pharmacy 55.7; Estimated Glomerular Filt Rate > 60; Glucose Random 154 mg/dL (60-115); Magnesium 1.8 mg/dL (1.6-2.6); Potassium 4.5 mmol/L (3.3-5.1); Sodium 130 mmol/L (135-145); Total Protein 7.2 g/dL (6.5-8.0)
[2023-09-28] MEDS: Morphine Sulfate 2 MG/ML CARTRIDGE 6 MG IVPUSH (11:04)
[2023-09-28] MEDS: Acetaminophen 325 MG TABLET 650 MG PO (11:11)
[2023-09-28 11:12] LABS: Band Neutrophils Percent 2 % (3-5); Basophils Percent Manual 1 % (0-2); Eosinophils Absolute Manual 0.1 X10*3/uL (0.0-0.4); Eosinophils Percent Manual 8 % (0-4); Lymphocytes Absolute Manual 0.6 X10*3/uL (1.2-4.9); Lymphocytes Percent Manual 65 % (20-40); Monocytes Percent Manual 4 % (2-11); Neutrophils Absolute Manual 0.2 X10*3/uL (2.0-8.3); Neutrophils Percent Manual 20 % (45-73)
[2023-09-28 11:14] LABS: RBC Morphology NOTED; Schistocytes 1+ (0-2) /OIF
[2023-09-28 11:15] LABS: Platelet Estimate DECREASED (NORMAL); Platelet Morphology Comment NORMAL; Tear Drop Cells 1+ (0-2) /OIF
[2023-09-28] MEDS: 0.9 % Sodium Chloride 1,000 ML 999 ML IV (11:30)
[2023-09-28 11:34] VITALS: RESP 16
[2023-09-28 12:11] VITALS: TEMP 37.1
[2023-09-28 12:55] LABS: Appearance Urine Hazy; Color Urine Orange; Glucose Urine UA Negative (Negative); Leukocyte Esterase Urine Negative (Negative); PH 5.5 (5.0-9.0); UMIC TRIGGER UACC YES; Urine Blood Trace (Negative); Urine Ketones Negative (Negative); Urine Protein Trace mg/dL (Neg-Trace)
[2023-09-28 13:09] LABS: Bacteria Urine None Seen (None Seen); Granular Casts Urine Present; Squamous Epithelial Cell Urine 0-2 /HPF (0-2); WBC Urine 0-5 /HPF (0-5)
--- NOTE | 2023-09-28 13:52 | MHC.HEMONC ---
Pt here for complaints of abdominal pain 10/10, pain with urination, no appetite, diarrhea for several days. Presents with fever of 102.1, shaking chills, constant abdominal pain 10/10 unrelieved with oxycontin or oxycodone. Port accessed with blood return noted. Labs drawn from port-specimen to lab. Urine sample obtained-urine cranberry colored-all specimens to lab. Pt states he stopped taking Lonsurf on Sunday09/26/23. States last pain medication was at 0100. Lab results reviewed-WBC 0.9,HGB 5.9/HCT 16.4, BILI 3.7, BUN 32, NA 130, ALK PHOS 126-Lb results reviewed by Dr Friend (covering for Dr Mckee) 650mg tylenol given for fever of 102.1,Morphine 6 mg IV given for pain 10/10. 1000 ml 0.9% NS infusing as ordered. Blood cultures drawn from port and peripherally. Dr Friend into see pt. Plan for transfer to ED for further evaluation. Report called to charge nurse Destiney. Pt states abdominal pain is now 5/10, temp now 98.2. Pt transferred to ED via wheelchair. Report given to ED nurse
--- NOTE | 2023-09-28 14:18 | MHC.HEMONC ---
I spoke to Milind while he was in the Department and asked if he would like to have a discussion with me and his around his care preferences as he is very sick and is going inpatient. They both wanted to fill out MOLST and I will visit them in ER to do it with them.
--- NOTE | 2023-09-28 16:29 | MHC.HEMONC ---
MOLST filled out with patient and his in ER. MD to sign and scan. Pt is full code.
--- NOTE | 2023-10-08 10:25 | MHC.HEMONC ---
Addendum entered by Sukh Patel RN 10/08/23 12:59: Pt was in for lab draw, said that he would actually be fine to resume taking the Lonsurf, if Dr. Mckee thinks it would be safe for him to do so. Pt will continue holding the Lonsurf until he comes back on 10/14, to discuss his options w/ Dr. Mckee. Original Note: Nurse received fax from [id number], questioning whether pt would be discontinuing his Lonsurf pills. Nurse explained to pharmacist, Everardo, that pt was hospitalized on 09/28 w/ abd pain, fever, and other symptoms, and apparently he attributes much of it to taking the Lonsurf, has refused to take it ever since. Nurse went on to say that pt's oncologist, Dr. Mckee, is away until 10/14, so this med should be placed on hold for now, until Dr. Mckee can decide if it should be fully discontinued. Pharmacist said they will follow up by phone next week to ask Dr. Mckee if she wants to d/c the med. Nurse removed Lonsurf from pt's med list.
[2023-10-08 13:13] LABS: Basophils Percent Auto 0.6 % (0-2); Hematocrit 30.5 % (42.0-52.0); Hemoglobin 10.2 g/dl (14.0-18.0); Imm Gran Abs Auto 0.22 X10*3/uL (0.00-0.03); Imm Gran Pct Auto 4.3 % (0.0-0.4); Lymphocytes Absolute Auto 1.3 X10*3/uL (1.2-4.9); Lymphocytes Percent Auto 24.8 % (20-40); MANUAL DIFF FLAG SCAN; Mean Corpuscular HGB Conc 33.4 g/dl (31.0-36.0); Mean Corpuscular Hemoglobin 31.5 pg (27.0-33.0); Mean Corpuscular Volume 94.1 fL (80.0-98.0); Mean Platelet Volume 12.1 fL (9.4-12.4); Monocytes Absolute Auto 1.2 X10*3/uL (0.1-1.2); Neutrophils Absolute Auto 2.5 x10*3/uL (2.0-8.3); Neutrophils Percent Auto 47.3 % (45-73); Platelet Count 121 X10*3/uL (160-400); Red Blood Count 3.24 X10*6/uL (4.60-5.80); Red Cell Distribution Width 16.7 % (11.0-16.0); SCAN SMEAR FLAG 1; White Blood Count 5.2 X10*3/uL (4.8-10.8)
[2023-10-08 13:32] LABS: Alanine Aminotransferase 19 U/L (0-40); Albumin Level 3.6 g/dL (3.5-5.0); Alkaline Phosphatase 156 U/L (39-117); Anion Gap 10 (12-20); Aspartate Amino Transferase 34 U/L (5-37); Bilirubin Total 1.1 mg/dL (0.0-1.0); Blood Urea Nitrogen 38 mg/dL (9-16); Calcium 9.4 mg/dL (8.4-10.2); Carbon Dioxide 17 mmol/L (22-29); Chloride 107 mmol/L (96-108); Creatinine Clr Calc Pharmacy 55.3; Estimated Glomerular Filt Rate > 60; Glucose Random 120 mg/dL (60-115); Potassium 4.8 mmol/L (3.3-5.1); SLIDE REVIEW VERIFIED; Sodium 129 mmol/L (135-145); Total Protein 7.3 g/dL (6.5-8.0)
[2023-10-08 15:33] VITALS: BP 100/50; PULSE 95
--- NOTE | 2023-10-08 15:45 | MHC.HEMONC ---
Patient in for labs post hospitalization and requests to have labs done through port. Port to right chest wall accessed without difficulty- CBC/CMP completed and reviewed. Dr. Mckee would like follow up with patient before resuming chemotherapy. Patient scheduled for 10/17 at 0800, chemotherapy cancelled. Left voicemail for patient.
--- NOTE | 2023-10-15 11:11 | MHC.HEMONC ---
Pt Selena called for Fentanyl Patch refill. Milind will be putting his last one on and she was concerned it may need PA. She said it is controlling his pain nearly 100%. I told her oxy is for breakthrough pain if needed. Hospital changed MS ER to patch due to finding it in his ostomy bag undigested. Pt seeing Dr Mckee on .
[2023-10-18 08:09] VITALS: BP 94/53; PULSE 78; TEMP 35.9; O2SAT 95; BMI 18.3
--- NOTE | 2023-10-18 08:12 | P.PNHO-ONC_ITS ---
Medical Summary - Medical Summary Date of Service: 10/18/23 Chief complaint: Follow-up Primary Care Provider: Jono Headley MD Medical Summary: Metastatic colon cancer diagnosed in October 2018. Presented with abdominal pain, 30 pound weight loss and severe pain. He had abnormal colonoscopy in 2009. He was told he needed a repeat colonoscopy in 5 years but he did not go for testing. CT abdomen/pelvis with IV contrast shows multiple areas of wall thickening in the sigmoid colon as well as thickening and enhancement of cecum, terminal ileum. Long segment of wall thickening of the distal transverse colon and left colon. Enlarged mesenteric and retroperitoneal lymph nodes, multiple liver metastasis and lung metastasis, all of these worrisome for metastatic colorectal malignancy. 11/01/18-Core biopsy of the right liver mass, moderately differentiated adenocarcinoma consistent with colorectal primary. KRAS mutation not detected BRAF mutation not detected. NRAS negative, MSI proficient or MSI stable. He developed bowel obstruction, palliative bypass ileostomy has been performed in November 2018. He started on mFOLFOX/Avastin regimen from 11/27/2018. His last treatment cycle 13 was on 05/14/2019. 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 Repeat CT abdomen/pelvis on 09/18/2019 showed further decrease in size of liver metastasis. He was on maintenance Xeloda 1500 mg p.o. b.i.d. 2 weeks on/1 week off, along with bevacizumab Q 3 weeks starting 10/22/2019 until 12/13/2020. Rising CEA as well as imaging in November 2020 showed evidence of progressive disease. He started irinotecan with bevacizumab from December 2020. CT chest/ abdomen and pelvis in July 2022 showed progression in lung nodules. CEA penelope to 18.8 NG/mL. Treatment was changed to FOLFIRI Avastin. CT chest 2022 disease progression with increase in size of bilateral pulmonary nodules. CEA level now above 50. PET-CT performed 08/14/2023 showed left upper lobe lung nodule measuring 2.2 cm with SUV 6.8, multiple lesions throughout both lobes of liver largest measuring 5.3 x 2.7 cm with SUV is 5.3. Because of disease progression, he has been switched to Lonsurf (trifluridine and tipiracil) with Avastin in the 3rd line setting from 09/03/2023. Interval History Interval history: Patient is here in follow-up. He is accompanied by his today. Patient was admitted to the hospital mid September because of severe pancytopenia pneumonia. He was given Granix and treated with IV antibiotics. Most of his symptoms have resolved and he is feeling better. His appetite has improved. No complaints at this time other than mild generalized weakness. He is willing to resume treatment. He is requesting continued fentanyl for long-term pain control but at slightly increased dose as by day 2 he feels very achy all over. Review of Systems - Constitutional Reports as per HPI, Reports malaise, Denies night sweats - Cardiovascular Reports no additional cardiovascular complaints - Respiratory Reports no additional respiratory complaints - Gastrointestinal Reports no additional gastrointestinal complaints [facility] Medical History: Medical History (Last Reviewed 10/18/23 @ 08:08 by Jim Camacho) Chronic respiratory failure Colon cancer metastasized to liver Colon cancer metastasized to liver Colon cancer metastasized to liver Encounter for ostomy care education Hyponatremia ILD (interstitial lung disease) Multifocal pneumonia Pulmonary fibrosis Pulmonary nodule Tubular adenoma Family History: Family History (Last Reviewed 10/18/23 @ 08:08 by Jim Camacho) Son Cystic fibrosis Brother Esophageal cancer Maternal Aunt Lung cancer Surgical History: Surgical History (Last Reviewed 10/18/23 @ 08:08 by Jim Camacho) H/O knee surgery Social History: Social History (Last Reviewed 10/18/23 @ 08:08 by Jim Camacho) Living Situation History: Household Members: Spouse Housing: House Do you presently have visiting nurse or other home services: Yes Tobacco History: Patient Tobacco Use Status: Former Tobacco user Tobacco use type: Cigarette Smoke Quit Date: quit 20 years ago e-Cigarette/Vaping Use: Former Use Second Hand Smoke Exposure: No Substance Use History: Use of substances other than those prescribed or required for medical reasons : No Substance Use Type: Marijuana Advance Directives: Advance Directives: Yes Advance Directives Information Provided: No Advance Directives on File: Yes Advance Directives Date on File: 12/12/22 Nutrition Assessment: Recently lost weight without trying: No Occupation Assessmet: service: No Current occupational status: employed Current occupation: [employer] Home Medications and Allergies Current Medications: Current Medications Heparin Sodium (Porcine) 500 (unit/ Sodium Chloride 5 ml) 0 unit IVFLUSH ONCE ONE Stop: 10/18/23 08:11 Home Medications Medication Instructions Recorded Confirmed Type acetaminophen 650 mg 650 mg PO Q6H PRN Pain 08/04/22 10/18/23 History tablet,extended release Allergies Allergy/AdvReac Type Severity Reaction Status Date / Time prednisone [PREDNISONE] AdvReac Intermediate Psychosis Verified 10/18/23 08:08 Exam Vital signs: Vital Signs Temp 96.6 F L 10/18/23 08:09 Pulse 78 10/18/23 08:09 Resp 16 09/28/23 11:34 BP 94/53 L 10/18/23 08:09 Pulse Ox 95 10/18/23 08:09 O2 Del Method Room Air 10/18/23 08:09 Intake & Output 10/17/23 10/18/23 10/18/23 18:59 06:59 18:59 Other: Weight 59.6 kg Weight in Grams [id number] Weight 59.6 kg BMI result Body Mass Index 18.3 - Constitutional Present: no acute distress - Routine HEENT Exam Head: Present: normal inspection - Routine Neck Exam Present: full ROM. Absent: lymphadenopathy - Routine Respiratory Exam Present: CTAB - Routine Cardiovascular Exam Cardiovascular: Present: RRR, S1, S2 - Routine Abdominal Exam Present: normal bowel sounds, soft. Absent: mass, organomegaly - Routine Extremities Exam Present: full ROM. Absent: calf tenderness, pedal edema - Routine Skin Exam Present: intact. Absent: cyanosis, erythema - Routine Neurological Exam Present: alert, oriented X3 Data - Labs CBC & Chem 7: 10/18/23 08:30 10/18/23 08:30 Assessment and Plan Patient Active problem list reviewed?: Yes (1) Colon cancer metastasized to liver Status: Inactive Assessment and plan: 1. This is a 63-year-old gentleman, with metastatic colon carcinoma, ? cecal/rt colon primary with liver and lung metastases. Biopsy of the liver lesion, Moderately differentiated adenocarcinoma. KRAS and BRAF negative. NRAS negative, MSI proficient or MSI stable. HER2 and panTRK negative. Initial CEA elevated at 91. He developed bowel obstruction, palliative bypass ileostomy has been performed in November 2018. He started on mFOLFOX/Avastin regimen from 11/27/2018. His last treatment cycle 13 was on 05/14/2019. He was on maintenance Xeloda 1500 mg p.o. b.i.d. 2 weeks on/1 week off, along with bevacizumab Q 3 weeks starting 10/22/2019 until 12/13/2020. Rising CEA as well as imaging in November 2020 showed evidence of progressive disease. He started irinotecan with bevacizumab from December 2020 until 07/2022. CT chest/ abdomen and pelvis in July 2022 showed progression in lung nodules. CEA penelope to 18.8 NG/mL. Treatment was changed to FOLFIRI Avastin. He was switched to Lonsurf (trifluridine and tipiracil) with Avastin in the 3rd line setting from 09/03/2023. Dose of Lonsurf is 60 mg b.i.d. day 1-5 and day 8- 12 Q 28 day cycle. Avastin will be administered D1 and 15. 2. 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 He has been tapered off prednisone and CellCept. He is also off the oxygen. 3. Chronic arthralgias. MS Contin was discontinued as it was not getting absorbed and coming out through his ostomy. He is now on fentanyl 50 mcg q.72 hours. Is not holding him for the 3 days, dose will be increased to 75 mcg q.72 hours. He is on oxycodone 5 mg for breakthrough pain 2 to 3 times a day. 4. Intermittent elevation of bilirubin, indirect bilirubinemia, probable Gilbert's syndrome. 5. Acute renal failure with hyperkalemia. He was admitted to the hospital 2022, nephrology consult was obtained. Imaging did not reveal hydronephrosis or obstructive uropathy. His acute kidney injury was related to prerenal azotemia secondary to poor intake and pneumonia. He was treated with IV hydration and antibiotics for pneumonia. He is feeling better now. His kidney functions have normalized. 6. Pancytopenia bilateral pneumonia secondary to ongoing chemotherapy. Patient has recovered from it. He has been off therapy for slightly over a month. 7. Hyponatremia, probably related to malignancy. SIADH is possible. I have advised him to increase salt intake. Because of severe myelosuppression, dose of Lonsurf will be decreased to 40 mg b.i.d. will continue with current therapy. Monitor CEA. Follow-up in 1 month. - Time Spent With Patient Time Spent with Patient (in minutes): 20
--- NOTE | 2023-10-18 08:25 | MHC.HEMONCMA ---
patient seen today for metastatic colon cancer, vss, labs, follow up with provider in 1 month
[2023-10-18 08:46] LABS: MANUAL DIFF FLAG NO
[2023-10-18 08:48] LABS: Basophils Absolute Auto 0.1 X10*3/uL (0.0-0.2); Basophils Percent Auto 0.9 % (0-2); Eosinophils Percent Auto 0.2 % (0-4); Hematocrit 30.9 % (42.0-52.0); Hemoglobin 10.3 g/dl (14.0-18.0); Imm Gran Abs Auto 0.05 X10*3/uL (0.00-0.03); Imm Gran Pct Auto 0.9 % (0.0-0.4); Lymphocytes Absolute Auto 1.2 X10*3/uL (1.2-4.9); Lymphocytes Percent Auto 21.2 % (20-40); Mean Corpuscular HGB Conc 33.3 g/dl (31.0-36.0); Mean Corpuscular Hemoglobin 31.9 pg (27.0-33.0); Mean Corpuscular Volume 95.7 fL (80.0-98.0); Mean Platelet Volume 11.6 fL (9.4-12.4); Monocytes Absolute Auto 0.9 X10*3/uL (0.1-1.2); Monocytes Percent Auto 16.5 % (2-11); Neutrophils Absolute Auto 3.3 x10*3/uL (2.0-8.3); Neutrophils Percent Auto 60.3 % (45-73); Platelet Count 208 X10*3/uL (160-400); Red Blood Count 3.23 X10*6/uL (4.60-5.80); Red Cell Distribution Width 19.6 % (11.0-16.0); White Blood Count 5.5 X10*3/uL (4.8-10.8)
[2023-10-18 09:08] LABS: Alanine Aminotransferase 31 U/L (0-40); Albumin Level 3.3 g/dL (3.5-5.0); Alkaline Phosphatase 159 U/L (39-117); Anion Gap 10 (12-20); Aspartate Amino Transferase 48 U/L (5-37); Bilirubin Total 0.9 mg/dL (0.0-1.0); Blood Urea Nitrogen 14 mg/dL (9-16); Calcium 9.3 mg/dL (8.4-10.2); Carbon Dioxide 19 mmol/L (22-29); Chloride 105 mmol/L (96-108); Estimated Glomerular Filt Rate > 60; Glucose Random 104 mg/dL (60-115); Potassium 4.9 mmol/L (3.3-5.1); Sodium 129 mmol/L (135-145); Total Protein 8.1 g/dL (6.5-8.0)
--- NOTE | 2023-10-18 09:09 | MHC.HEMONC ---
Pt here for follow up With Dr Mckee and labs via port. Port to right chest accessed. Good blood return. Labs drawn. Port de accessed with heparin. Lonsurf will be restarted at decreased dose. Pt to start Avastin and Lonsurf ? 10/22/23 at 1300. left to confirm start date. Waiting for call back.
[2023-10-22 13:46] LABS: MANUAL DIFF FLAG NO
[2023-10-22 13:51] LABS: Basophils Absolute Auto 0.1 X10*3/uL (0.0-0.2); Basophils Percent Auto 0.9 % (0-2); Eosinophils Absolute Auto 0.1 X10*3/uL (0.0-0.4); Eosinophils Percent Auto 0.6 % (0-4); Hematocrit 33.2 % (42.0-52.0); Hemoglobin 10.9 g/dl (14.0-18.0); Imm Gran Abs Auto 0.11 X10*3/uL (0.00-0.03); Imm Gran Pct Auto 1.4 % (0.0-0.4); Lymphocytes Absolute Auto 1.4 X10*3/uL (1.2-4.9); Lymphocytes Percent Auto 17.8 % (20-40); Mean Corpuscular HGB Conc 32.8 g/dl (31.0-36.0); Mean Corpuscular Hemoglobin 32.3 pg (27.0-33.0); Mean Corpuscular Volume 98.5 fL (80.0-98.0); Mean Platelet Volume 11.7 fL (9.4-12.4); Monocytes Absolute Auto 1.2 X10*3/uL (0.1-1.2); Monocytes Percent Auto 14.8 % (2-11); Neutrophils Absolute Auto 5.2 x10*3/uL (2.0-8.3); Neutrophils Percent Auto 64.5 % (45-73); Platelet Count 227 X10*3/uL (160-400); Red Blood Count 3.37 X10*6/uL (4.60-5.80); Red Cell Distribution Width 19.6 % (11.0-16.0); White Blood Count 8.1 X10*3/uL (4.8-10.8)
[2023-10-22 13:52] LABS: Appearance Urine Clear; Color Urine Dark Yellow; Glucose Urine UA Negative (Negative); Leukocyte Esterase Urine Negative (Negative); Nitrite Urine Negative (Negative); PH 5.5 (5.0-9.0); Urine Blood Negative (Negative); Urine Ketones Trace mg/dL (Negative); Urine Protein Trace mg/dL (Neg-Trace)
[2023-10-22 14:03] VITALS: BP 103/61; PULSE 76; RESP 16; TEMP 37.1; O2SAT 97
[2023-10-22 14:04] VITALS: BMI 18.1
[2023-10-22 14:06] LABS: Alanine Aminotransferase 31 U/L (0-40); Albumin Level 3.3 g/dL (3.5-5.0); Alkaline Phosphatase 189 U/L (39-117); Anion Gap 13 (12-20); Aspartate Amino Transferase 50 U/L (5-37); Blood Urea Nitrogen 15 mg/dL (9-16); Calcium 9.5 mg/dL (8.4-10.2); Carbon Dioxide 19 mmol/L (22-29); Chloride 107 mmol/L (96-108); Creatinine Clr Calc Pharmacy 64.6; Estimated Glomerular Filt Rate > 60; Glucose Random 132 mg/dL (60-115); Sodium 134 mmol/L (135-145); Total Protein 8.3 g/dL (6.5-8.0)
[2023-10-22] MEDS: Heparin Sodium,Porcine Flush 500 UNIT/5 ML SYRINGE IVFLUSH (14:20)
[2023-10-22] MEDS: diphenhydrAMINE HCL 25 MG CAPSULE PO (14:20)
[2023-10-22] MEDS: Ondansetron ODT 8 MG TAB.RAPDIS TRANSLINGU (14:20)
[2023-10-22] MEDS: Acetaminophen 325 MG TABLET 650 MG PO (14:20)
[2023-10-22] MEDS: BEVACIZUMAB IV (14:43)
[2023-10-22] MEDS: SODIUM CHLORIDE 0.9% IV (14:43)
--- NOTE | 2023-10-22 16:12 | MHC.HEMONC ---
C2: AVASTIN/LONSURF. Port to right chest wall accessed without difficulty with positive blood return. Labs obtained and reviewed. UA unremarkable. Patient reports fatigue and poor appetite. Pre-medicated with Tylenol 650mg PO, Benardryl 25mg PO, and Zofran 8mg PO. Chemo infused and well tolerated. Port flushed with Heparin and de-accessed. Carrie contacted [facility] pharmacy to confirm that Lonsurf order was received. Selena (patient's ) will call to arrange delivery. Discharge packet provided with next appt. Patient departed unit via wheelchair..
--- NOTE | 2023-10-30 10:31 | MHC.HEMONC ---
Triage call-pt called requesting refill on Fentanyl patch and oxycodone. Message given to Dr Mckee
[2023-11-05 13:00] VITALS: BP 114/62; PULSE 83; RESP 18; TEMP 36.3; O2SAT 97; BMI 18.6
[2023-11-05 13:42] LABS: MANUAL DIFF FLAG NO
[2023-11-05 13:49] LABS: Basophils Percent Auto 0.4 % (0-2); Eosinophils Absolute Auto 0.2 X10*3/uL (0.0-0.4); Eosinophils Percent Auto 3.7 % (0-4); Hemoglobin 8.8 g/dl (14.0-18.0); Imm Gran Abs Auto 0.02 X10*3/uL (0.00-0.03); Imm Gran Pct Auto 0.4 % (0.0-0.4); Lymphocytes Absolute Auto 0.6 X10*3/uL (1.2-4.9); Lymphocytes Percent Auto 11.5 % (20-40); Mean Corpuscular HGB Conc 33.8 g/dl (31.0-36.0); Mean Corpuscular Hemoglobin 32.7 pg (27.0-33.0); Mean Corpuscular Volume 96.7 fL (80.0-98.0); Mean Platelet Volume 12.2 fL (9.4-12.4); Monocytes Absolute Auto 0.2 X10*3/uL (0.1-1.2); Monocytes Percent Auto 4.7 % (2-11); Neutrophils Absolute Auto 3.8 x10*3/uL (2.0-8.3); Neutrophils Percent Auto 79.3 % (45-73); Platelet Count 70 X10*3/uL (160-400); Red Blood Count 2.69 X10*6/uL (4.60-5.80); Red Cell Distribution Width 18.6 % (11.0-16.0); White Blood Count 4.9 X10*3/uL (4.8-10.8)
[2023-11-05 13:51] LABS: Appearance Urine Clear; Color Urine Dark Yellow; Glucose Urine UA Negative (Negative); Leukocyte Esterase Urine Negative (Negative); Nitrite Urine Negative (Negative); PH 5.5 (5.0-9.0); Urine Blood Negative (Negative); Urine Ketones Negative (Negative); Urine Protein Negative (Neg-Trace)
[2023-11-05 14:03] LABS: Alanine Aminotransferase 26 U/L (0-40); Alkaline Phosphatase 122 U/L (39-117); Anion Gap 7 (12-20); Aspartate Amino Transferase 40 U/L (5-37); Bilirubin Total 1.6 mg/dL (0.0-1.0); Blood Urea Nitrogen 12 mg/dL (9-16); Calcium 9.3 mg/dL (8.4-10.2); Carbon Dioxide 24 mmol/L (22-29); Chloride 106 mmol/L (96-108); Creatinine Clr Calc Pharmacy 76.8; Estimated Glomerular Filt Rate > 60; Glucose Random 145 mg/dL (60-115); Sodium 133 mmol/L (135-145); Total Protein 7.2 g/dL (6.5-8.0)
[2023-11-05] MEDS: diphenhydrAMINE HCL 25 MG CAPSULE PO (14:22)
[2023-11-05] MEDS: Acetaminophen 325 MG TABLET 650 MG PO (14:22)
[2023-11-05] MEDS: Heparin Sodium,Porcine Flush 500 UNIT/5 ML SYRINGE IVFLUSH (14:22)
[2023-11-05] MEDS: Ondansetron ODT 8 MG TAB.RAPDIS TRANSLINGU (14:22)
[2023-11-05] MEDS: BEVACIZUMAB IV (14:29)
[2023-11-05] MEDS: SODIUM CHLORIDE 0.9% IV (14:29)
--- NOTE | 2023-11-05 15:31 | MHC.HEMONC ---
Pt here for C2D15 Bevocizumab ad Lonsurf (D1-D5 and D8-D12) Pt states he is very fatigued while taking Lonsorf. Continues neuropathy in feet and hands, states has some nausea-taking zofran with relief. Port accessed with blood return noted. Labs drawn from port. Urine specimen obtained. All specimens to lab. Lab results reported to Dr Weller to receive treatment today. Pre medicated with tylenol, benadryl, zofran. Bevacizumab given as ordered-tolerated well. Port flushed with heparin and de accessed. Next appointment scheduled. Discharge packet given with next appointment and scheduled for Lonsurf. Dr Mckee into see pt. Discharged to front of hospital via wheelchair. Instructed to call department with any concerns or questions
[2023-11-19 11:02] VITALS: BP 118/58; PULSE 93; RESP 18; TEMP 36.5; O2SAT 94; BMI 19.0
[2023-11-19 11:41] LABS: MANUAL DIFF FLAG NO
[2023-11-19 11:44] LABS: Appearance Urine Clear; Color Urine Yellow; Glucose Urine UA Negative (Negative); Leukocyte Esterase Urine Negative (Negative); Nitrite Urine Negative (Negative); PH 5.5 (5.0-9.0); Urine Blood Negative (Negative); Urine Ketones Negative (Negative); Urine Protein Negative (Neg-Trace)
[2023-11-19 11:48] LABS: Basophils Percent Auto 0.4 % (0-2); Eosinophils Absolute Auto 0.2 X10*3/uL (0.0-0.4); Eosinophils Percent Auto 7.2 % (0-4); Hematocrit 26.5 % (42.0-52.0); Hemoglobin 8.8 g/dl (14.0-18.0); Imm Gran Abs Auto 0.01 X10*3/uL (0.00-0.03); Imm Gran Pct Auto 0.4 % (0.0-0.4); Lymphocytes Absolute Auto 0.7 X10*3/uL (1.2-4.9); Lymphocytes Percent Auto 26.8 % (20-40); Mean Corpuscular HGB Conc 33.2 g/dl (31.0-36.0); Mean Corpuscular Hemoglobin 34.8 pg (27.0-33.0); Mean Corpuscular Volume 104.7 fL (80.0-98.0); Mean Platelet Volume 11.4 fL (9.4-12.4); Monocytes Absolute Auto 0.4 X10*3/uL (0.1-1.2); Neutrophils Absolute Auto 1.3 x10*3/uL (2.0-8.3); Neutrophils Percent Auto 51.2 % (45-73); Platelet Count 114 X10*3/uL (160-400); Red Blood Count 2.53 X10*6/uL (4.60-5.80); Red Cell Distribution Width 23.7 % (11.0-16.0)
[2023-11-19 11:53] LABS: White Blood Count 2.5 X10*3/uL (4.8-10.8)
[2023-11-19 11:58] LABS: Alanine Aminotransferase 24 U/L (0-40); Albumin Level 3.2 g/dL (3.5-5.0); Alkaline Phosphatase 128 U/L (39-117); Anion Gap 6 (12-20); Aspartate Amino Transferase 39 U/L (5-37); Bilirubin Total 1.3 mg/dL (0.0-1.0); Blood Urea Nitrogen 13 mg/dL (9-16); Calcium 8.9 mg/dL (8.4-10.2); Carbon Dioxide 23 mmol/L (22-29); Chloride 109 mmol/L (96-108); Creatinine Clr Calc Pharmacy 76.5; Estimated Glomerular Filt Rate > 60; Glucose Random 130 mg/dL (60-115); Potassium 4.1 mmol/L (3.3-5.1); Sodium 134 mmol/L (135-145); Total Protein 7.3 g/dL (6.5-8.0)
[2023-11-19] MEDS: Ondansetron ODT 8 MG TAB.RAPDIS TRANSLINGU (12:39)
[2023-11-19] MEDS: Acetaminophen 325 MG TABLET 650 MG PO (12:39)
[2023-11-19] MEDS: diphenhydrAMINE HCL 25 MG CAPSULE PO (12:39)
[2023-11-19] MEDS: Heparin Sodium,Porcine Flush 500 UNIT/5 ML SYRINGE IVFLUSH (12:40)
[2023-11-19] MEDS: BEVACIZUMAB IV (13:14)
[2023-11-19] MEDS: SODIUM CHLORIDE 0.9% IV (13:14)
--- NOTE | 2023-11-19 14:52 | MHC.HEMONC ---
C3: AVASTIN/LONSURF (D1-5 and 8-12) Port to right chest wall accessed without difficulty with positive blood return. Labs obtained and reviewed. UA unremarkable. Patient reports feeling well today. Pre-medicated with Tylenol 650mg PO, Benardryl 25mg PO, and Zofran 8mg PO. Chemo infused and well tolerated. Port flushed with Heparin and de-accessed. Discharge packet provided with next appt. Patient departed unit via wheelchair..
--- NOTE | 2023-11-30 11:00 | MHC.HEMONC ---
Triage call- pt's called for refill on fentanyl patch. Request given to Dr Friend (covering for Dr Mckee)
[2023-12-03 13:28] LABS: MANUAL DIFF FLAG NO
[2023-12-03 13:32] LABS: Basophils Percent Auto 0.3 % (0-2); Eosinophils Percent Auto 0.3 % (0-4); Imm Gran Abs Auto 0.01 X10*3/uL (0.00-0.03); Imm Gran Pct Auto 0.3 % (0.0-0.4); Lymphocytes Absolute Auto 0.9 X10*3/uL (1.2-4.9); Lymphocytes Percent Auto 26.5 % (20-40); Mean Corpuscular HGB Conc 35.6 g/dl (31.0-36.0); Mean Corpuscular Volume 101.1 fL (80.0-98.0); Monocytes Absolute Auto 0.2 X10*3/uL (0.1-1.2); Monocytes Percent Auto 4.5 % (2-11); Neutrophils Absolute Auto 2.3 x10*3/uL (2.0-8.3); Neutrophils Percent Auto 68.1 % (45-73); Red Blood Count 1.86 X10*6/uL (4.60-5.80); Red Cell Distribution Width 19.3 % (11.0-16.0); White Blood Count 3.3 X10*3/uL (4.8-10.8)
[2023-12-03 13:33] LABS: Appearance Urine Clear; Color Urine Dark Yellow; Glucose Urine UA Negative (Negative); Leukocyte Esterase Urine Trace (Negative); Nitrite Urine Negative (Negative); PH 5.5 (5.0-9.0); UMIC TRIGGER UA YES; Urine Blood Negative (Negative); Urine Ketones Trace mg/dL (Negative); Urine Protein Trace mg/dL (Neg-Trace)
[2023-12-03 13:35] LABS: Bacteria Urine None Seen (None Seen); RBC Urine 0-2 /HPF (0-2); Squamous Epithelial Cell Urine 0-2 /HPF (0-2); WBC Urine 0-5 /HPF (0-5)
[2023-12-03 13:47] LABS: Alanine Aminotransferase 17 U/L (0-40); Albumin Level 3.1 g/dL (3.5-5.0); Alkaline Phosphatase 109 U/L (39-117); Anion Gap 9 (12-20); Aspartate Amino Transferase 32 U/L (5-37); Bilirubin Total 2.1 mg/dL (0.0-1.0); Blood Urea Nitrogen 19 mg/dL (9-16); Calcium 8.8 mg/dL (8.4-10.2); Carbon Dioxide 23 mmol/L (22-29); Chloride 100 mmol/L (96-108); Creatinine Clr Calc Pharmacy 63.6; Estimated Glomerular Filt Rate > 60; Glucose Random 97 mg/dL (60-115); Potassium 4.3 mmol/L (3.3-5.1); Sodium 128 mmol/L (135-145); Total Protein 7.1 g/dL (6.5-8.0)
[2023-12-03 13:49] LABS: Hemoglobin 6.7 g/dl (14.0-18.0)
[2023-12-03 13:50] LABS: Hematocrit 18.8 % (42.0-52.0)
[2023-12-03 13:52] VITALS: BMI 19.0
[2023-12-03 13:57] VITALS: BP 99/61; PULSE 84; RESP 16; TEMP 37.7; O2SAT 95
[2023-12-03 13:58] LABS: Mean Platelet Volume 11.5 fL (9.4-12.4); Platelet Count 38 X10*3/uL (160-400)
[2023-12-03] MEDS: 0.9 % Sodium Chloride 500 ML 250 ML IV (14:00)
--- NOTE | 2023-12-03 14:01 | P.PNHO-ONC_ITS ---
Medical Summary - Medical Summary Date of Service: 12/03/23 Chief complaint: Weakness/chills Primary Care Provider: Jono Headley MD Medical Summary: Metastatic colon cancer diagnosed in October 2018. Presented with abdominal pain, 30 pound weight loss and severe pain. He had abnormal colonoscopy in 2009. He was told he needed a repeat colonoscopy in 5 years but he did not go for testing. CT abdomen/pelvis with IV contrast shows multiple areas of wall thickening in the sigmoid colon as well as thickening and enhancement of cecum, terminal ileum. Long segment of wall thickening of the distal transverse colon and left colon. Enlarged mesenteric and retroperitoneal lymph nodes, multiple liver metastasis and lung metastasis, all of these worrisome for metastatic colorectal malignancy. 11/01/18-Core biopsy of the right liver mass, moderately differentiated adenocarcinoma consistent with colorectal primary. KRAS mutation not detected BRAF mutation not detected. NRAS negative, MSI proficient or MSI stable. He developed bowel obstruction, palliative bypass ileostomy has been performed in November 2018. He started on mFOLFOX/Avastin regimen from 11/27/2018. His last treatment cycle 13 was on 05/14/2019. 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 Repeat CT abdomen/pelvis on 09/18/2019 showed further decrease in size of liver metastasis. He was on maintenance Xeloda 1500 mg p.o. b.i.d. 2 weeks on/1 week off, along with bevacizumab Q 3 weeks starting 10/22/2019 until 12/13/2020. Rising CEA as well as imaging in November 2020 showed evidence of progressive disease. He started irinotecan with bevacizumab from December 2020. CT chest/ abdomen and pelvis in July 2022 showed progression in lung nodules. CEA penelope to 18.8 NG/mL. Treatment was changed to FOLFIRI Avastin. CT chest 2022 disease progression with increase in size of bilateral pulmonary nodules. CEA level now above 50. PET-CT performed 08/14/2023 showed left upper lobe lung nodule measuring 2.2 cm with SUV 6.8, multiple lesions throughout both lobes of liver largest measuring 5.3 x 2.7 cm with SUV is 5.3. Because of disease progression, he has been switched to Lonsurf (trifluridine and tipiracil) with Avastin in the 3rd line setting from 09/03/2023. Interval History Interval history: Patient is here in follow-up and scheduled treatment. He states that this morning he woke up with some chills but he did not record any temperature. It does not have any other localizing signs or symptoms such as sore throat, cough, dysuria, diarrhea or abdominal pain. He took Lonsurf, last dose was about 2 days ago. He is aware that his blood counts are low. He feels weak but denies any acute symptoms such as shortness of breath or chest pain, dizziness or palpitations. Review of Systems - Constitutional Reports as per HPI, Reports fatigue, Reports lack of energy [facility] Medical History: Medical History (Last Reviewed 10/18/23 @ 08:08 by Jim Camacho) Chronic respiratory failure Colon cancer metastasized to liver Colon cancer metastasized to liver Colon cancer metastasized to liver Encounter for ostomy care education Hyponatremia ILD (interstitial lung disease) Multifocal pneumonia Pulmonary fibrosis Pulmonary nodule Tubular adenoma Family History: Family History (Last Reviewed 10/18/23 @ 08:08 by Jim Camacho) Son Cystic fibrosis Brother Esophageal cancer Maternal Aunt Lung cancer Surgical History: Surgical History (Last Reviewed 10/18/23 @ 08:08 by Jim Camacho) H/O knee surgery Social History: Social History (Last Reviewed 10/18/23 @ 08:08 by Jim Camacho) Living Situation History: Household Members: Spouse Housing: House Do you presently have visiting nurse or other home services: Yes Tobacco History: Patient Tobacco Use Status: Former Tobacco user Tobacco use type: Cigarette Smoke Quit Date: quit 20 years ago e-Cigarette/Vaping Use: Former Use Second Hand Smoke Exposure: No Substance Use History: Use of substances other than those prescribed or required for medical reasons : No Substance Use Type: Marijuana Advance Directives: Advance Directives: Yes Advance Directives Information Provided: No Advance Directives on File: Yes Advance Directives Date on File: 12/12/22 Nutrition Assessment: Recently lost weight without trying: No Occupation Assessmet: service: No Current occupational status: employed Current occupation: [employer] Medications and Allergies Current Medications: Current Medications Acetaminophen (Acetaminophen 325 Mg Tablet) 650 mg PO ONCE PINEDA Stop: 12/03/23 23:59 Diphenhydramine HCl (Diphenhydramine Hcl 25 Mg Capsule) 25 mg PO ONCE PINEDA Stop: 12/03/23 23:59 Heparin Sodium (Porcine) (Heparin Sodium,Porcine Flush 500 Unit/5 Ml Syringe) 500 unit IVFLUSH ONCE PINEDA Stop: 12/03/23 23:59 Ondansetron HCl (Ondansetron Odt 8 Mg Tab.Rapdis) 8 mg TRANSLINGU ONCE PINEDA Stop: 12/03/23 23:59 Home Medications ?Medication ?Instructions ?Recorded ?Confirmed ?Type acetaminophen 650 mg 650 mg PO Q6H PRN Pain 08/04/22 10/18/23 History tablet,extended release Allergies Allergy/AdvReac Type Severity Reaction Status Date / Time prednisone [PREDNISONE] AdvReac Intermediate Psychosis Verified 10/18/23 08:08 Exam Vital signs: Vital Signs Temp 99.9 F 12/03/23 13:57 Pulse 84 12/03/23 13:57 Resp 16 12/03/23 13:57 BP 99/61 12/03/23 13:57 Pulse Ox 95 12/03/23 13:57 O2 Del Method Room Air 12/03/23 13:57 Intake & Output 12/02/23 12/03/23 12/03/23 18:59 06:59 18:59 Other: Weight 61.7 kg [place] Weight in Grams 85080 Weight 61.7 kg BMI result Body Mass Index 19.0 - Constitutional Present: no acute distress - Routine HEENT Exam Head: Present: normal inspection - Routine Neck Exam Present: full ROM. Absent: lymphadenopathy - Routine Respiratory Exam Present: CTAB - Routine Cardiovascular Exam Cardiovascular: Present: RRR, S1, S2 - Routine Abdominal Exam Present: normal bowel sounds, soft. Absent: mass, organomegaly - Routine Extremities Exam Present: full ROM. Absent: calf tenderness, pedal edema - Routine Skin Exam Present: intact. Absent: cyanosis, erythema - Routine Neurological Exam Present: alert, oriented X3 Data - Labs CBC & Chem 7: 12/03/23 14:50 12/03/23 13:27 Assessment and Plan Patient Active problem list reviewed?: Yes (1) Colon cancer metastasized to liver Status: Inactive Assessment and plan: 1. This is a 63-year-old gentleman, with metastatic colon carcinoma, ? cecal/rt colon primary with liver and lung metastases. Biopsy of the liver lesion, Moderately differentiated adenocarcinoma. KRAS and BRAF negative. NRAS negative, MSI proficient or MSI stable. HER2 and panTRK negative. Initial CEA elevated at 91. He developed bowel obstruction, palliative bypass ileostomy has been performed in November 2018. He started on mFOLFOX/Avastin regimen from 11/27/2018. His last treatment cycle 13 was on 05/14/2019. He was on maintenance Xeloda 1500 mg p.o. b.i.d. 2 weeks on/1 week off, along with bevacizumab Q 3 weeks starting 10/22/2019 until 12/13/2020. Rising CEA as well as imaging in November 2020 showed evidence of progressive disease. He started irinotecan with bevacizumab from December 2020 until 07/2022. CT chest/ abdomen and pelvis in July 2022 showed progression in lung nodules. CEA penelope to 18.8 NG/mL. Treatment was changed to FOLFIRI Avastin. He was switched to Lonsurf (trifluridine and tipiracil) with Avastin in the 3rd line setting from 09/03/2023. Dose of Lonsurf is 60 mg b.i.d. day 1-5 and day 8- 12 Q 28 day cycle. Avastin will be administered D1 and 15. 2. 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 He has been tapered off prednisone and CellCept. He is also off the oxygen. 3. Chronic arthralgias. MS Contin was discontinued as it was not getting absorbed and coming out through his ostomy. He is now on fentanyl 50 mcg q.72 hours. Is not holding him for the 3 days, dose will be increased to 75 mcg q.72 hours. He is on oxycodone 5 mg for breakthrough pain 2 to 3 times a day. 4. Intermittent elevation of bilirubin, indirect bilirubinemia, probable Gilbert's syndrome. 5. Acute renal failure with hyperkalemia. He was admitted to the hospital 2022, nephrology consult was obtained. Imaging did not reveal hydronephrosis or obstructive uropathy. His acute kidney injury was related to prerenal azotemia secondary to poor intake and pneumonia. He was treated with IV hydration and antibiotics for pneumonia. He is feeling better now. His kidney functions have normalized. 6. Pancytopenia secondary to ongoing chemotherapy. 7. Hyponatremia, probably related to malignancy. SIADH is possible. I have advised him to increase salt intake. Because of severe myelosuppression, dose of Lonsurf was decreased to 40 mg b.i.d.. This will be further reduced to 6 days per cycle rather than 10 days. Transfused 2 units PRBC because of severe anemia. He has developed recurrent pancytopenia. Empiric antibiotics with amoxicillin 500 b.i.d. because of chills. Follow-up in 1 month. - Time Spent With Patient Time Spent with Patient (in minutes): 20
[2023-12-03 15:03] LABS: Mean Corpuscular HGB Conc 34.3 g/dl (31.0-36.0); Mean Corpuscular Hemoglobin 34.9 pg (27.0-33.0); Mean Corpuscular Volume 101.7 fL (80.0-98.0); Mean Platelet Volume 10.5 fL (9.4-12.4); Red Blood Count 1.75 X10*6/uL (4.60-5.80); Red Cell Distribution Width 19.3 % (11.0-16.0)
[2023-12-03 15:04] LABS: White Blood Count 2.1 X10*3/uL (4.8-10.8)
[2023-12-03 15:05] LABS: Hematocrit 17.8 % (42.0-52.0); Hemoglobin 6.1 g/dl (14.0-18.0); Platelet Count 31 X10*3/uL (160-400)
--- NOTE | 2023-12-03 15:57 | MHC.HEMONC ---
C3D15: AVASTIN+LONSURF. Patient completed Lonsurf 2 days ago. Port to right chest wall accessed without difficulty - positive blood return however return is sluggish. Unable to fill specimen tubes completely. Phlebotomy in to draw patient peripherally. BP low at 99/51. UA obtained and unremarkable. Patient reports feeling fatigued, dizzy with poor appetite. Critical labs called. H/H 6.7/18.[address] Mckee notified. CMP also review. NA 128. Order for NS 500mls to be administered over 2 hours. Plan to hold chemotherapy today and transfuse tomorrow. Pharmacy notified- orders moved to next Saturday 12/09. Type and screen completed and repeated CBC. 2nd set consistent at 6.1/17.8. Blood bank notified. Follow up with Dr. Mckee today. WBC 3.3- patient did report some mild chills last night. Prophylactic antibiotic will be ordered per MD. Fluids well tolerated. Port clamped, capped, and wrapped for protection. Patient will return tomorrow morning at 0900. Departed unit via wheelchair. Patient declined discharge packet.
[2023-12-04] VITALS (8 sets, daily range): BP systolic 90–115; BP diastolic 40–56; PULSE 63–75; RESP 18; TEMP 36.4–36.6; O2SAT 96; BMI 19.0
[2023-12-04] MEDS: Ondansetron ODT 8 MG TAB.RAPDIS TRANSLINGU (09:56)
[2023-12-10 13:08] VITALS: BP 103/59; PULSE 99; RESP 18; TEMP 36.1; O2SAT 94; BMI 19.2
[2023-12-10 13:31] LABS: Appearance Urine Clear; Color Urine Dark Yellow; Glucose Urine UA Negative (Negative); Leukocyte Esterase Urine Negative (Negative); Nitrite Urine Negative (Negative); PH 5.5 (5.0-9.0); Urine Blood Negative (Negative); Urine Ketones Negative (Negative); Urine Protein Negative (Neg-Trace)
[2023-12-10 13:32] LABS: Eosinophils Percent Auto 3.1 % (0-4); Hematocrit 23.7 % (42.0-52.0); Hemoglobin 8.2 g/dl (14.0-18.0); Imm Gran Abs Auto 0.01 X10*3/uL (0.00-0.03); Lymphocytes Absolute Auto 0.4 X10*3/uL (1.2-4.9); Lymphocytes Percent Auto 42.7 % (20-40); MANUAL DIFF FLAG SCAN; Mean Corpuscular HGB Conc 34.6 g/dl (31.0-36.0); Mean Corpuscular Hemoglobin 34.2 pg (27.0-33.0); Mean Corpuscular Volume 98.8 fL (80.0-98.0); Mean Platelet Volume 12.8 fL (9.4-12.4); Monocytes Absolute Auto 0.1 X10*3/uL (0.1-1.2); Monocytes Percent Auto 9.4 % (2-11); Neutrophils Absolute Auto 0.4 x10*3/uL (2.0-8.3); Neutrophils Percent Auto 43.8 % (45-73); Platelet Count 48 X10*3/uL (160-400); Red Cell Distribution Width 17.5 % (11.0-16.0); SCAN SMEAR FLAG 1
[2023-12-10 13:49] LABS: Alanine Aminotransferase 20 U/L (0-40); Albumin Level 2.8 g/dL (3.5-5.0); Alkaline Phosphatase 109 U/L (39-117); Anion Gap 10 (12-20); Aspartate Amino Transferase 35 U/L (5-37); Bilirubin Total 1.5 mg/dL (0.0-1.0); Blood Urea Nitrogen 10 mg/dL (9-16); Calcium 8.9 mg/dL (8.4-10.2); Carbon Dioxide 23 mmol/L (22-29); Chloride 105 mmol/L (96-108); Creatinine Clr Calc Pharmacy 81.5; Estimated Glomerular Filt Rate > 60; Glucose Random 150 mg/dL (60-115); Potassium 3.8 mmol/L (3.3-5.1); Sodium 134 mmol/L (135-145); Total Protein 6.7 g/dL (6.5-8.0)
[2023-12-10 13:57] LABS: SLIDE REVIEW VERIFIED
--- NOTE | 2023-12-11 09:33 | MHC.HEMONC ---
LATE ENTRY FOR 12/10/2023 - Pt was in for C3D15 Avastin/Lonsurf, arrived on foot, treatment was delayed since last week d/t abnormal labs, pt was anemic, also was c/o severe nausea, received blood transfusion last week. Today, pt reports he feels much better, does have fatigue, but other symptoms are resolved, VSS, nurse accessed R chest port in sterile procedure, flushed w/ NS, found positive blood return, obtained blood specimens and urine for US. Nurse reviewed results w/ Dr. Mckee, pt is neutropenic today, also reports he has been holding the Lonsurf for the past week as ordered. Dr. Mckee ordered pt to delay tx for another week, chemo pharmacy was notified, nurse rescheduled chemo and pt's tx plan, flushed port w/ NS and heparin 500 units, then de-accessed. Pt was given calendar of upcoming appts and copy of lab results.
--- NOTE | 2023-12-13 15:05 | MHC.HEMONC ---
Addendum entered by India Sevilla RN 12/14/23 09:23: Refill sent Original Note: Triage call: Refill request for Fentanyl patch. Dr. Mckee out of office today- will notify tomorrow.
[2023-12-17 13:01] VITALS: BP 91/54; PULSE 87; RESP 18; TEMP 36.4; O2SAT 95
[2023-12-17 13:33] LABS: Appearance Urine Clear; Color Urine Dark Yellow; Glucose Urine UA Negative (Negative); Leukocyte Esterase Urine Negative (Negative); Nitrite Urine Negative (Negative); Specific Gravity - Urine 1.015 (1.005-1.025); Urine Blood Negative (Negative); Urine Ketones Trace mg/dL (Negative); Urine Protein Negative (Neg-Trace)
[2023-12-17 13:37] LABS: Basophils Percent Auto 0.7 % (0-2); Eosinophils Percent Auto 1.4 % (0-4); Hematocrit 25.4 % (42.0-52.0); Hemoglobin 8.7 g/dl (14.0-18.0); Lymphocytes Absolute Auto 0.7 X10*3/uL (1.2-4.9); Lymphocytes Percent Auto 50.7 % (20-40); MANUAL DIFF FLAG SCAN; Mean Corpuscular HGB Conc 34.3 g/dl (31.0-36.0); Mean Corpuscular Hemoglobin 35.1 pg (27.0-33.0); Mean Corpuscular Volume 102.4 fL (80.0-98.0); Mean Platelet Volume 12.1 fL (9.4-12.4); Monocytes Absolute Auto 0.4 X10*3/uL (0.1-1.2); Monocytes Percent Auto 27.1 % (2-11); Neutrophils Absolute Auto 0.3 x10*3/uL (2.0-8.3); Neutrophils Percent Auto 20.1 % (45-73); Red Blood Count 2.48 X10*6/uL (4.60-5.80); SCAN SMEAR FLAG 1
[2023-12-17 13:42] LABS: Platelet Count 77 X10*3/uL (160-400); White Blood Count 1.4 X10*3/uL (4.8-10.8)
[2023-12-17 13:48] LABS: Alanine Aminotransferase 22 U/L (0-40); Alkaline Phosphatase 119 U/L (39-117); Anion Gap 9 (12-20); Aspartate Amino Transferase 43 U/L (5-37); Bilirubin Total 1.6 mg/dL (0.0-1.0); Blood Urea Nitrogen 9 mg/dL (9-16); Carbon Dioxide 24 mmol/L (22-29); Chloride 104 mmol/L (96-108); Creatinine Clr Calc Pharmacy 71.6; Estimated Glomerular Filt Rate > 60; Glucose Random 123 mg/dL (60-115); Potassium 4.4 mmol/L (3.3-5.1); Sodium 133 mmol/L (135-145)
[2023-12-17 14:10] VITALS: BMI 18.8
[2023-12-17 14:20] LABS: SLIDE REVIEW VERIFIED
--- NOTE | 2023-12-17 14:40 | MHC.HEMONC ---
treatment held today anc 0.3. pre dr hay push out 2 weeks, pt will receive c3d15 on 12/30. pt is to also hold lonsurf until this time as well. when he able to restart the lonsurf it will be 20mg bid days1-3 and days8-10. pharm aware and tx plan moved
[2023-12-31 13:09] VITALS: BP 118/60; PULSE 83; RESP 16; TEMP 36.6; O2SAT 94
[2023-12-31 13:10] VITALS: BMI 17.9
[2023-12-31 13:34] LABS: MANUAL DIFF FLAG NO
[2023-12-31 13:36] LABS: Appearance Urine Clear; Color Urine Yellow; Glucose Urine UA Negative (Negative); Leukocyte Esterase Urine Negative (Negative); Nitrite Urine Negative (Negative); Specific Gravity - Urine 1.015 (1.005-1.025); Urine Blood Negative (Negative); Urine Ketones Negative (Negative); Urine Protein Negative (Neg-Trace)
[2023-12-31 13:41] LABS: Hematocrit 29.6 % (42.0-52.0); Red Blood Count 2.79 X10*6/uL (4.60-5.80); White Blood Count 4.6 X10*3/uL (4.8-10.8)
[2023-12-31 13:42] LABS: Basophils Percent Auto 0.6 % (0-2); Eosinophils Absolute Auto 0.1 X10*3/uL (0.0-0.4); Eosinophils Percent Auto 1.7 % (0-4); Imm Gran Abs Auto 0.04 X10*3/uL (0.00-0.03); Imm Gran Pct Auto 0.9 % (0.0-0.4); Lymphocytes Percent Auto 21.2 % (20-40); Mean Corpuscular HGB Conc 33.8 g/dl (31.0-36.0); Mean Corpuscular Hemoglobin 35.8 pg (27.0-33.0); Mean Corpuscular Volume 106.1 fL (80.0-98.0); Mean Platelet Volume 11.1 fL (9.4-12.4); Monocytes Absolute Auto 0.6 X10*3/uL (0.1-1.2); Monocytes Percent Auto 12.7 % (2-11); Neutrophils Absolute Auto 2.9 x10*3/uL (2.0-8.3); Neutrophils Percent Auto 62.9 % (45-73); Platelet Count 120 X10*3/uL (160-400); Red Cell Distribution Width 20.7 % (11.0-16.0)
[2023-12-31 13:50] LABS: Alanine Aminotransferase 23 U/L (0-40); Alkaline Phosphatase 143 U/L (39-117); Anion Gap 14 (12-20); Aspartate Amino Transferase 53 U/L (5-37); Bilirubin Total 0.8 mg/dL (0.0-1.0); Blood Urea Nitrogen 9 mg/dL (9-16); Calcium 8.8 mg/dL (8.4-10.2); Carbon Dioxide 20 mmol/L (22-29); Chloride 105 mmol/L (96-108); Creatinine Clr Calc Pharmacy 76.6; Estimated Glomerular Filt Rate > 60; Glucose Random 104 mg/dL (60-115); Potassium 4.7 mmol/L (3.3-5.1); Sodium 134 mmol/L (135-145); Total Protein 7.8 g/dL (6.5-8.0)
[2023-12-31] MEDS: Ondansetron ODT 8 MG TAB.RAPDIS TRANSLINGU (14:03)
[2023-12-31] MEDS: Acetaminophen 325 MG TABLET 650 MG PO (14:03)
[2023-12-31] MEDS: diphenhydrAMINE HCL 25 MG CAPSULE PO (14:04)
[2023-12-31] MEDS: Heparin Sodium,Porcine Flush 500 UNIT/5 ML SYRINGE IVFLUSH (14:04)
--- NOTE | 2023-12-31 14:12 | PM.HEMONCPN ---
Medical Summary - Medical Summary Date of Service: 12/31/23 Chief complaint: Follow-up and scheduled treatment Primary Care Provider: Jono Headley MD Medical Summary: Metastatic colon cancer diagnosed in October 2018. Presented with abdominal pain, 30 pound weight loss and severe pain. He had abnormal colonoscopy in 2009. He was told he needed a repeat colonoscopy in 5 years but he did not go for testing. CT abdomen/pelvis with IV contrast shows multiple areas of wall thickening in the sigmoid colon as well as thickening and enhancement of cecum, terminal ileum. Long segment of wall thickening of the distal transverse colon and left colon. Enlarged mesenteric and retroperitoneal lymph nodes, multiple liver metastasis and lung metastasis, all of these worrisome for metastatic colorectal malignancy. 11/01/18-Core biopsy of the right liver mass, moderately differentiated adenocarcinoma consistent with colorectal primary. KRAS mutation not detected BRAF mutation not detected. NRAS negative, MSI proficient or MSI stable. He developed bowel obstruction, palliative bypass ileostomy has been performed in November 2018. He started on mFOLFOX/Avastin regimen from 11/27/2018. His last treatment cycle 13 was on 05/14/2019. 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 Repeat CT abdomen/pelvis on 09/18/2019 showed further decrease in size of liver metastasis. He was on maintenance Xeloda 1500 mg p.o. b.i.d. 2 weeks on/1 week off, along with bevacizumab Q 3 weeks starting 10/22/2019 until 12/13/2020. Rising CEA as well as imaging in November 2020 showed evidence of progressive disease. He started irinotecan with bevacizumab from December 2020. CT chest/ abdomen and pelvis in July 2022 showed progression in lung nodules. CEA penelope to 18.8 NG/mL. Treatment was changed to FOLFIRI Avastin. CT chest 2022 disease progression with increase in size of bilateral pulmonary nodules. CEA level now above 50. PET-CT performed 08/14/2023 showed left upper lobe lung nodule measuring 2.2 cm with SUV 6.8, multiple lesions throughout both lobes of liver largest measuring 5.3 x 2.7 cm with SUV is 5.3. Because of disease progression, he has been switched to Lonsurf (trifluridine and tipiracil) with Avastin in the 3rd line setting from 09/03/2023. Interval History Interval history: Patient is here in follow-up and scheduled treatment. He feels better, he has not received any treatment for a month because of cytopenias. He denies any acute symptoms such as shortness of breath or chest pain, dizziness or palpitations. Review of Systems - Constitutional Reports as per HPI, Denies night sweats, Denies poor appetite - Cardiovascular Reports no additional cardiovascular complaints - Respiratory Reports no additional respiratory complaints - Gastrointestinal Reports no additional gastrointestinal complaints [facility] Medical History: Medical History (Last Reviewed 10/18/23 @ 08:08 by Jim Camacho) Chronic respiratory failure Colon cancer metastasized to liver Colon cancer metastasized to liver Colon cancer metastasized to liver Encounter for ostomy care education Hyponatremia ILD (interstitial lung disease) Multifocal pneumonia Pulmonary fibrosis Pulmonary nodule Tubular adenoma Family History: Family History (Last Reviewed 10/18/23 @ 08:08 by Jim Camacho) Son Cystic fibrosis Brother Esophageal cancer Maternal Aunt Lung cancer Surgical History: Surgical History (Last Reviewed 10/18/23 @ 08:08 by Jim Camacho) H/O knee surgery Social History: Social History (Last Reviewed 10/18/23 @ 08:08 by Jim Camacho) Living Situation History: Household Members: Spouse Housing: House Do you presently have visiting nurse or other home services: Yes Tobacco History: Patient Tobacco Use Status: Former Tobacco user Tobacco use type: Cigarette Smoke Quit Date: quit 20 years ago e-Cigarette/Vaping Use: Former Use Second Hand Smoke Exposure: No Substance Use History: Use of substances other than those prescribed or required for medical reasons: No Substance Use Type: Marijuana Advance Directives: Advance Directives: Yes Advance Directives Information Provided: No Advance Directives on File: Yes Advance Directives Date on File: 12/12/22 Nutrition Assessment: Recently lost weight without trying: No Occupation Assessmet: service: No Current occupational status: employed Current occupation: [employer] Medications and Allergies Current Medications: Current Medications Acetaminophen (Acetaminophen 325 Mg Tablet) 650 mg PO ONCE PINEDA Stop: 12/31/23 23:59 Last Admin: 12/31/23 14:03 Dose: 650 mg Diphenhydramine HCl (Diphenhydramine Hcl 25 Mg Capsule) 25 mg PO ONCE PINEDA Stop: 12/31/23 23:59 Last Admin: 12/31/23 14:04 Dose: 25 mg Heparin Sodium (Porcine) (Heparin Sodium,Porcine Flush 500 Unit/5 Ml Syringe) 500 unit IVFLUSH ONCE PINEDA Stop: 12/31/23 23:59 Last Admin: 12/31/23 14:04 Dose: 500 unit Bevacizumab 300 mg/ Sodium (Chloride) 100 mls @ 200 mls/hr IV ONCE PINEDA Stop: 12/31/23 23:59 Ondansetron HCl (Ondansetron Odt 8 Mg Tab.Rapdis) 8 mg TRANSLINGU ONCE PINEDA Stop: 12/31/23 23:59 Last Admin: 12/31/23 14:03 Dose: 8 mg Home Medications ?Medication ?Instructions ?Recorded ?Confirmed ?Type acetaminophen 650 mg 650 mg PO Q6H PRN Pain 08/04/22 10/18/23 History tablet,extended release Allergies Allergy/AdvReac Type Severity Reaction Status Date / Time prednisone [PREDNISONE] AdvReac Intermediate Psychosis Verified 10/18/23 08:08 Exam Vital signs: Vital Signs Temp 97.9 F 12/31/23 13:09 Pulse 83 12/31/23 13:09 Resp 16 12/31/23 13:09 BP 118/60 12/31/23 13:09 Pulse Ox 94 12/31/23 13:09 O2 Del Method Room Air 12/31/23 13:09 Intake & Output 12/30/23 12/31/23 12/31/23 18:59 06:59 18:59 Other: Weight 58.1 kg [place] Weight in Grams 99061 Weight 58.1 kg BMI result Body Mass Index 17.9 - Constitutional Present: no acute distress - Routine HEENT Exam Head: Present: normal inspection - Routine Neck Exam Present: full ROM. Absent: lymphadenopathy - Routine Respiratory Exam Present: CTAB - Routine Cardiovascular Exam Cardiovascular: Present: RRR, S1, S2 - Routine Abdominal Exam Present: normal bowel sounds, soft. Absent: mass, organomegaly - Routine Extremities Exam Present: full ROM. Absent: calf tenderness, pedal edema - Routine Skin Exam Present: intact. Absent: cyanosis, erythema - Routine Neurological Exam Present: alert, oriented X3 Data - Labs CBC & Chem 7: 12/31/23 13:20 12/31/23 13:20 Assessment and Plan Patient Active problem list reviewed?: Yes (1) Colon cancer metastasized to liver Status: Inactive Assessment and plan: 1. This is a 63-year-old gentleman, with metastatic colon carcinoma, ? cecal/rt colon primary with liver and lung metastases. Biopsy of the liver lesion, Moderately differentiated adenocarcinoma. KRAS and BRAF negative. NRAS negative, MSI proficient or MSI stable. HER2 and panTRK negative. Initial CEA elevated at 91. He developed bowel obstruction, palliative bypass ileostomy has been performed in November 2018. He started on mFOLFOX/Avastin regimen from 11/27/2018. His last treatment cycle 13 was on 05/14/2019. He was on maintenance Xeloda 1500 mg p.o. b.i.d. 2 weeks on/1 week off, along with bevacizumab Q 3 weeks starting 10/22/2019 until 12/13/2020. Rising CEA as well as imaging in November 2020 showed evidence of progressive disease. He started irinotecan with bevacizumab from December 2020 until 07/2022. CT chest/ abdomen and pelvis in July 2022 showed progression in lung nodules. CEA penelope to 18.8 NG/mL. Treatment was changed to FOLFIRI Avastin. He was switched to Lonsurf (trifluridine and tipiracil) with Avastin in the 3rd line setting from 09/03/2023. Dose of Lonsurf is 60 mg b.i.d. day 1-5 and day 8-12 Q 28 day cycle. Avastin will be administered D1 and 15. 2. 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 He has been tapered off prednisone and CellCept. He is also off the oxygen. 3. Chronic arthralgias. MS Contin was discontinued as it was not getting absorbed and coming out through his ostomy. He is now on fentanyl 50 mcg q.72 hours. Is not holding him for the 3 days, dose will be increased to 75 mcg q.72 hours. He is on oxycodone 5 mg for breakthrough pain 2 to 3 times a day. 4. Intermittent elevation of bilirubin, indirect bilirubinemia, probable Gilbert's syndrome. 5. Acute renal failure with hyperkalemia. He was admitted to the hospital 2022, nephrology consult was obtained. Imaging did not reveal hydronephrosis or obstructive uropathy. His acute kidney injury was related to prerenal azotemia secondary to poor intake and pneumonia. He was treated with IV hydration and antibiotics for pneumonia. He is feeling better now. His kidney functions have normalized. 6. Pancytopenia secondary to ongoing chemotherapy. 7. Hyponatremia, probably related to malignancy. SIADH is possible. I have advised him to increase salt intake. Because of severe myelosuppression, dose of Lonsurf was decreased to 40 mg b.i.d.. This will be further reduced to 6 days per cycle rather than 10 days. Labs are improved and he is feeling better. Proceed with treatment today. Follow-up in 1 month. - Time Spent With Patient Time Spent with Patient (in minutes): 15
[2023-12-31] MEDS: BEVACIZUMAB IV (14:50)
[2023-12-31] MEDS: SODIUM CHLORIDE 0.9% IV (14:50)
--- NOTE | 2023-12-31 15:28 | MHC.HEMONC ---
C3D15: AVASTIN+LONSURF. (Last cycle held due to abnormal labs). Port accessed without difficulty-positive blood return. Labs obtained and reviewed. UA unremarkable. VSS. Patient reports fatigue otherwise no other complaints. Pre-medicated with Tylenol 650mg PO, Benadryl 25mg PO, and Pepcid 20mg PO. Infusion well tolerated. Follow up with Dr. Mckee today. Patient instructed to restart Lonsurf 20mg BID today. Patient to take Lonsurf Days 1-3 and Day 8-10 every 28 days. Calender provided with instructions when to take this medication. Patient verbalizes understanding. Port flushed with Heparin and de-accessed. Refill for Oxycodone ordered by Dr. Mckee. Patient declined wheelchair- ambulating with steady gait.
--- NOTE | 2024-01-10 13:23 | MHC.HEMONC ---
refill request fentanyl patch. Sent by Dr Mckee.
[2024-01-14 13:31] LABS: MANUAL DIFF FLAG NO
[2024-01-14 13:35] LABS: Basophils Percent Auto 0.5 % (0-2); Eosinophils Absolute Auto 0.3 X10*3/uL (0.0-0.4); Eosinophils Percent Auto 5.1 % (0-4); Hematocrit 28.6 % (42.0-52.0); Hemoglobin 9.6 g/dl (14.0-18.0); Imm Gran Abs Auto 0.02 X10*3/uL (0.00-0.03); Imm Gran Pct Auto 0.4 % (0.0-0.4); Lymphocytes Percent Auto 17.4 % (20-40); Mean Corpuscular HGB Conc 33.6 g/dl (31.0-36.0); Mean Corpuscular Hemoglobin 36.2 pg (27.0-33.0); Mean Corpuscular Volume 107.9 fL (80.0-98.0); Mean Platelet Volume 12.4 fL (9.4-12.4); Monocytes Absolute Auto 0.6 X10*3/uL (0.1-1.2); Monocytes Percent Auto 10.3 % (2-11); Neutrophils Absolute Auto 3.7 x10*3/uL (2.0-8.3); Neutrophils Percent Auto 66.3 % (45-73); Platelet Count 110 X10*3/uL (160-400); Red Blood Count 2.65 X10*6/uL (4.60-5.80); Red Cell Distribution Width 19.3 % (11.0-16.0); White Blood Count 5.5 X10*3/uL (4.8-10.8)
[2024-01-14 13:39] VITALS: BP 102/61; PULSE 74; RESP 17; TEMP 36.2; O2SAT 93; BMI 17.9
[2024-01-14 13:39] LABS: Appearance Urine Clear; Color Urine Dark Yellow; Glucose Urine UA Negative (Negative); Leukocyte Esterase Urine Negative (Negative); Nitrite Urine Negative (Negative); PH 5.5 (5.0-9.0); Specific Gravity - Urine 1.025 (1.005-1.025); Urine Blood Negative (Negative); Urine Ketones Trace mg/dL (Negative); Urine Protein Negative (Neg-Trace)
[2024-01-14 13:52] LABS: Alanine Aminotransferase 23 U/L (0-40); Albumin Level 3.2 g/dL (3.5-5.0); Alkaline Phosphatase 128 U/L (39-117); Anion Gap 10 (12-20); Aspartate Amino Transferase 45 U/L (5-37); Bilirubin Total 1.2 mg/dL (0.0-1.0); Blood Urea Nitrogen 10 mg/dL (9-16); Calcium 9.3 mg/dL (8.4-10.2); Carbon Dioxide 25 mmol/L (22-29); Chloride 103 mmol/L (96-108); Creatinine Clr Calc Pharmacy 75.7; Estimated Glomerular Filt Rate > 60; Glucose Random 101 mg/dL (60-115); Potassium 4.4 mmol/L (3.3-5.1); Sodium 134 mmol/L (135-145); Total Protein 7.7 g/dL (6.5-8.0)
[2024-01-14] MEDS: Ondansetron ODT 8 MG TAB.RAPDIS TRANSLINGU (14:16)
[2024-01-14] MEDS: diphenhydrAMINE HCL 25 MG CAPSULE PO (14:16)
[2024-01-14] MEDS: Acetaminophen 325 MG TABLET 650 MG PO (14:16)
[2024-01-14] MEDS: Heparin Sodium,Porcine Flush 500 UNIT/5 ML SYRINGE IVFLUSH (14:18)
[2024-01-14] MEDS: SODIUM CHLORIDE 0.9% IV (14:37)
[2024-01-14] MEDS: BEVACIZUMAB IV (14:37)
--- NOTE | 2024-01-14 15:45 | MHC.HEMONC ---
Addendum entered by Lola Bermeo RN 01/14/24 15:51: Pt is on Lonsurf D1-3 and D8-10. States tolerating it well at this time. Original Note: Pt here for C4D1 Avastin q 28 day cycle. Pt feeling well. No complaints. Port to right chest accessed,good blood return. Labs drawn and results reviewed. Ok to treat. Pre meds given Tylenol, Zofran, Benadryl PO and Avastin infused. Pt tolerated it well. Port flushed with saline/Heparin and de accessed. Pt departed with steady gait, escorted to main entrance.
--- NOTE | 2024-01-24 16:22 | MHC.HEMONC ---
Triage call-received call from pt requesting refill on Fentanyl patch-request given to Dr rFiend (covering for Dr Mckee) requesting month supply next time-will notify Dr Mckee tomorrow
[2024-01-28 13:12] VITALS: BP 127/58; PULSE 88; RESP 18; TEMP 36.8; O2SAT 91; BMI 17.9
[2024-01-28 13:43] LABS: Appearance Urine Clear; Color Urine Dark Yellow; Glucose Urine UA Negative (Negative); Leukocyte Esterase Urine Negative (Negative); Nitrite Urine Negative (Negative); PH 5.5 (5.0-9.0); Urine Blood Negative (Negative); Urine Ketones Negative (Negative); Urine Protein Negative (Neg-Trace)
[2024-01-28 13:49] LABS: Basophils Percent Auto 0.5 % (0-2); Eosinophils Absolute Auto 0.3 X10*3/uL (0.0-0.4); Eosinophils Percent Auto 6.6 % (0-4); Hematocrit 29.5 % (42.0-52.0); Imm Gran Abs Auto 0.01 X10*3/uL (0.00-0.03); Imm Gran Pct Auto 0.2 % (0.0-0.4); Lymphocytes Absolute Auto 0.9 X10*3/uL (1.2-4.9); Lymphocytes Percent Auto 20.9 % (20-40); Mean Corpuscular HGB Conc 33.9 g/dl (31.0-36.0); Mean Corpuscular Hemoglobin 37.5 pg (27.0-33.0); Mean Corpuscular Volume 110.5 fL (80.0-98.0); Mean Platelet Volume 13.1 fL (9.4-12.4); Monocytes Absolute Auto 0.4 X10*3/uL (0.1-1.2); Monocytes Percent Auto 9.9 % (2-11); Neutrophils Absolute Auto 2.6 x10*3/uL (2.0-8.3); Neutrophils Percent Auto 61.9 % (45-73); Red Blood Count 2.67 X10*6/uL (4.60-5.80); Red Cell Distribution Width 19.5 % (11.0-16.0); White Blood Count 4.3 X10*3/uL (4.8-10.8)
[2024-01-28 13:50] LABS: Platelet Count 83 X10*3/uL (160-400)
[2024-01-28 14:27] LABS: Alanine Aminotransferase 21 U/L (0-40); Albumin Level 3.1 g/dL (3.5-5.0); Alkaline Phosphatase 111 U/L (39-117); Anion Gap 9 (12-20); Aspartate Amino Transferase 45 U/L (5-37); Bilirubin Total 1.6 mg/dL (0.0-1.0); Blood Urea Nitrogen 11 mg/dL (9-16); Calcium 9.2 mg/dL (8.4-10.2); Carbon Dioxide 26 mmol/L (22-29); Chloride 104 mmol/L (96-108); Creatinine Clr Calc Pharmacy 71.2; Estimated Glomerular Filt Rate > 60; Glucose Random 138 mg/dL (60-115); Potassium 4.6 mmol/L (3.3-5.1); Sodium 134 mmol/L (135-145); Total Protein 7.2 g/dL (6.5-8.0)
[2024-01-28] MEDS: Heparin Sodium,Porcine Flush 500 UNIT/5 ML SYRINGE IVFLUSH (14:36)
[2024-01-28] MEDS: Ondansetron ODT 8 MG TAB.RAPDIS TRANSLINGU (14:37)
[2024-01-28] MEDS: diphenhydrAMINE HCL 25 MG CAPSULE PO (14:37)
[2024-01-28] MEDS: Acetaminophen 325 MG TABLET 650 MG PO (14:37)
[2024-01-28] MEDS: SODIUM CHLORIDE 0.9% IV (14:55)
[2024-01-28] MEDS: BEVACIZUMAB IV (14:55)
--- NOTE | 2024-01-28 15:59 | MHC.HEMONC ---
C4D15: AVASTIN+LONSURF. Port accessed without difficulty-positive blood return however return is sluggish. CMP did hemolyze- patient was drawn peripherally. Labs obtained and reviewed. Platelets 83 with Bili 1.6. Ok to proceed with treatment per Dr. Mckee. UA unremarkable. VSS. Patient reports fatigue otherwise no other complaints. Pre-medicated with Tylenol 650mg PO, Benadryl 25mg PO, and Pepcid 20mg PO. Infusion well tolerated. Patient remains on Lonsurf 20mg BID days 1-3 and Day 8-10 every 28 days. Patient to start Lonsurf on 02/10 with C5D1: Avastin. Calender provided with instructions when to take this medication. Patient verbalizes understanding. Port flushed with Heparin and de-accessed. Patient declined wheelchair- ambulated with steady gait.
--- NOTE | 2024-02-08 12:23 | MHC.HEMONC ---
Triage call-received call from pt's requesting refill on Fentanyl 50mcg patch-also requesting one month supply. Request given to Dr Mckee
[2024-02-11 13:08] LABS: MANUAL DIFF FLAG NO
[2024-02-11 13:11] LABS: Appearance Urine Clear; Basophils Percent Auto 0.2 % (0-2); Color Urine Yellow; Eosinophils Absolute Auto 0.2 X10*3/uL (0.0-0.4); Eosinophils Percent Auto 4.2 % (0-4); Glucose Urine UA Negative (Negative); Hematocrit 29.5 % (42.0-52.0); Hemoglobin 9.9 g/dl (14.0-18.0); Imm Gran Abs Auto 0.01 X10*3/uL (0.00-0.03); Imm Gran Pct Auto 0.2 % (0.0-0.4); Leukocyte Esterase Urine Negative (Negative); Lymphocytes Absolute Auto 0.8 X10*3/uL (1.2-4.9); Mean Corpuscular HGB Conc 33.6 g/dl (31.0-36.0); Mean Corpuscular Hemoglobin 37.2 pg (27.0-33.0); Mean Platelet Volume 12.1 fL (9.4-12.4); Monocytes Absolute Auto 0.5 X10*3/uL (0.1-1.2); Monocytes Percent Auto 11.9 % (2-11); Neutrophils Absolute Auto 2.6 x10*3/uL (2.0-8.3); Neutrophils Percent Auto 63.5 % (45-73); Nitrite Urine Negative (Negative); Red Blood Count 2.66 X10*6/uL (4.60-5.80); Red Cell Distribution Width 17.2 % (11.0-16.0); Urine Blood Negative (Negative); Urine Ketones Negative (Negative); Urine Protein Negative (Neg-Trace)
[2024-02-11 13:12] LABS: Mean Corpuscular Volume 110.9 fL (80.0-98.0); Platelet Count 87 X10*3/uL (160-400)
[2024-02-11 13:16] VITALS: BP 115/56; PULSE 76; RESP 18; TEMP 36.1; O2SAT 97; BMI 17.6
[2024-02-11 13:34] LABS: Alanine Aminotransferase 21 U/L (0-40); Albumin Level 3.2 g/dL (3.5-5.0); Alkaline Phosphatase 123 U/L (39-117); Anion Gap 10 (12-20); Aspartate Amino Transferase 48 U/L (5-37); Bilirubin Total 1.2 mg/dL (0.0-1.0); Blood Urea Nitrogen 9 mg/dL (9-16); Carbon Dioxide 25 mmol/L (22-29); Chloride 103 mmol/L (96-108); Creatinine Clr Calc Pharmacy 75.2; Estimated Glomerular Filt Rate > 60; Glucose Random 88 mg/dL (60-115); Potassium 4.5 mmol/L (3.3-5.1); Sodium 133 mmol/L (135-145); Total Protein 7.5 g/dL (6.5-8.0)
[2024-02-11] MEDS: Acetaminophen 325 MG TABLET 650 MG PO (13:49)
[2024-02-11] MEDS: Ondansetron ODT 8 MG TAB.RAPDIS TRANSLINGU (13:49)
[2024-02-11] MEDS: diphenhydrAMINE HCL 25 MG CAPSULE PO (13:49)
[2024-02-11] MEDS: Heparin Sodium,Porcine Flush 500 UNIT/5 ML SYRINGE IVFLUSH (13:50)
[2024-02-11] MEDS: BEVACIZUMAB IV (14:11)
[2024-02-11] MEDS: SODIUM CHLORIDE 0.9% IV (14:11)
--- NOTE | 2024-02-11 14:44 | MHC.HEMONC ---
Pt here for C5D1 Bevacizumab/Lonsurf (D1-3, D8-10 BID) Port accessed with blood return noted. Labs drawn from port-specimen to lab. Pt states he feels okay today-requesting refill on oxycodone. Request for refill given to Dr Mckee. Lab results reviewed-okay to receive treatment today. Pre medicated with tylenol, benadryl, zofran. Bevacizumab given as ordered-tolerated well. Port flushed with heparin and de accessed. Next appointment scheduled. Discharge packet given. Instructed to call with any questions or concerns-verbalizes understanding of information given. Declines wheelchair for discharge. Gait steady on discharge.
[2024-02-25 13:17] VITALS: BP 117/59; PULSE 81; RESP 16; TEMP 36.1; O2SAT 93; BMI 17.8
[2024-02-25 13:20] LABS: MANUAL DIFF FLAG NO
[2024-02-25 13:24] LABS: Basophils Percent Auto 0.2 % (0-2); Eosinophils Absolute Auto 0.1 X10*3/uL (0.0-0.4); Eosinophils Percent Auto 2.9 % (0-4); Hematocrit 30.6 % (42.0-52.0); Hemoglobin 10.5 g/dl (14.0-18.0); Imm Gran Abs Auto 0.02 X10*3/uL (0.00-0.03); Imm Gran Pct Auto 0.4 % (0.0-0.4); Lymphocytes Absolute Auto 0.9 X10*3/uL (1.2-4.9); Lymphocytes Percent Auto 19.8 % (20-40); Mean Corpuscular HGB Conc 34.3 g/dl (31.0-36.0); Mean Corpuscular Hemoglobin 37.6 pg (27.0-33.0); Mean Corpuscular Volume 109.7 fL (80.0-98.0); Mean Platelet Volume 12.4 fL (9.4-12.4); Monocytes Absolute Auto 0.5 X10*3/uL (0.1-1.2); Monocytes Percent Auto 11.4 % (2-11); Neutrophils Absolute Auto 2.9 x10*3/uL (2.0-8.3); Neutrophils Percent Auto 65.3 % (45-73); Red Blood Count 2.79 X10*6/uL (4.60-5.80); White Blood Count 4.5 X10*3/uL (4.8-10.8)
[2024-02-25 13:25] LABS: Platelet Count 99 X10*3/uL (160-400)
[2024-02-25 13:28] LABS: Appearance Urine Clear; Color Urine Yellow; Glucose Urine UA Negative (Negative); Leukocyte Esterase Urine Negative (Negative); Nitrite Urine Negative (Negative); PH 5.5 (5.0-9.0); Specific Gravity - Urine 1.015 (1.005-1.025); Urine Blood Negative (Negative); Urine Ketones Negative (Negative); Urine Protein Negative (Neg-Trace)
[2024-02-25 13:42] LABS: Alanine Aminotransferase 28 U/L (0-40); Albumin Level 3.1 g/dL (3.5-5.0); Alkaline Phosphatase 150 U/L (39-117); Anion Gap 11 (12-20); Aspartate Amino Transferase 68 U/L (5-37); Bilirubin Total 1.3 mg/dL (0.0-1.0); Blood Urea Nitrogen 9 mg/dL (9-16); Calcium 8.6 mg/dL (8.4-10.2); Carbon Dioxide 24 mmol/L (22-29); Chloride 105 mmol/L (96-108); Creatinine Clr Calc Pharmacy 72.6; Estimated Glomerular Filt Rate > 60; Glucose Random 89 mg/dL (60-115); Potassium 4.1 mmol/L (3.3-5.1); Sodium 136 mmol/L (135-145); Total Protein 7.3 g/dL (6.5-8.0)
[2024-02-25] MEDS: diphenhydrAMINE HCL 25 MG CAPSULE PO (13:55)
[2024-02-25] MEDS: Acetaminophen 325 MG TABLET 650 MG PO (13:55)
[2024-02-25] MEDS: Ondansetron ODT 8 MG TAB.RAPDIS TRANSLINGU (13:56)
[2024-02-25] MEDS: Heparin Sodium,Porcine Flush 500 UNIT/5 ML SYRINGE IVFLUSH (13:57)
[2024-02-25] MEDS: BEVACIZUMAB IV (14:49)
[2024-02-25] MEDS: SODIUM CHLORIDE 0.9% IV (14:49)
--- NOTE | 2024-02-25 14:58 | P.PNHO-ONC_ITS ---
Medical Summary - Medical Summary Date of Service: 02/25/24 Chief complaint: Follow-up and scheduled treatment Primary Care Provider: Jono Headley MD Medical Summary: Metastatic colon cancer diagnosed in October 2018. Presented with abdominal pain, 30 pound weight loss and severe pain. He had abnormal colonoscopy in 2009. He was told he needed a repeat colonoscopy in 5 years but he did not go for testing. CT abdomen/pelvis with IV contrast shows multiple areas of wall thickening in the sigmoid colon as well as thickening and enhancement of cecum, terminal ileum. Long segment of wall thickening of the distal transverse colon and left colon. Enlarged mesenteric and retroperitoneal lymph nodes, multiple liver metastasis and lung metastasis, all of these worrisome for metastatic colorectal malignancy. 11/01/18-Core biopsy of the right liver mass, moderately differentiated adenocarcinoma consistent with colorectal primary. KRAS mutation not detected BRAF mutation not detected. NRAS negative, MSI proficient or MSI stable. He developed bowel obstruction, palliative bypass ileostomy has been performed in November 2018. He started on mFOLFOX/Avastin regimen from 11/27/2018. His last treatment cycle 13 was on 05/14/2019. 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 Repeat CT abdomen/pelvis on 09/18/2019 showed further decrease in size of liver metastasis. He was on maintenance Xeloda 1500 mg p.o. b.i.d. 2 weeks on/1 week off, along with bevacizumab Q 3 weeks starting 10/22/2019 until 12/13/2020. Rising CEA as well as imaging in November 2020 showed evidence of progressive disease. He started irinotecan with bevacizumab from December 2020. CT chest/ abdomen and pelvis in July 2022 showed progression in lung nodules. CEA penelope to 18.8 NG/mL. Treatment was changed to FOLFIRI Avastin. CT chest 2022 disease progression with increase in size of bilateral pulmonary nodules. CEA level now above 50. PET-CT performed 08/14/2023 showed left upper lobe lung nodule measuring 2.2 cm with SUV 6.8, multiple lesions throughout both lobes of liver largest measuring 5.3 x 2.7 cm with SUV is 5.3. Because of disease progression, he has been switched to Lonsurf (trifluridine and tipiracil) with Avastin in the 3rd line setting from 09/03/2023. Interval History Interval history: Patient is here in follow-up and scheduled treatment. He is doing okay, he has lost some weight but says he is now holding steady. He is trying to eat as much as he can as well as take diet supplements. He denies any acute symptoms such as shortness of breath or chest pain, dizziness or palpitations. Review of Systems - Constitutional Reports as per HPI, Reports weight loss - Cardiovascular Reports no additional cardiovascular complaints - Respiratory Reports no additional respiratory complaints - Gastrointestinal Reports no additional gastrointestinal complaints [facility] Medical History: Medical History (Last Reviewed 10/18/23 @ 08:08 by Jim Camacho) Chronic respiratory failure Colon cancer metastasized to liver Colon cancer metastasized to liver Colon cancer metastasized to liver Encounter for ostomy care education Hyponatremia ILD (interstitial lung disease) Multifocal pneumonia Pulmonary fibrosis Pulmonary nodule Tubular adenoma Family History: Family History (Last Reviewed 10/18/23 @ 08:08 by Jim Camacho) Son Cystic fibrosis Brother Esophageal cancer Maternal Aunt Lung cancer Surgical History: Surgical History (Last Reviewed 10/18/23 @ 08:08 by Jim Camacho) H/O knee surgery Social History: Social History (Last Reviewed 10/18/23 @ 08:08 by Jim Camacho) Living Situation History: Household Members: Spouse Housing: House Do you presently have visiting nurse or other home services: Yes Tobacco History: Patient Tobacco Use Status: Former Tobacco user Tobacco use type: Cigarette e-Cigarette/Vaping Use: Former Use Second Hand Smoke Exposure: No Substance Use History: Use of substances other than those prescribed or required for medical reasons : No Substance Use Type: Marijuana Advance Directives: Advance Directives: Yes Advance Directives Information Provided: No Advance Directives on File: Yes Advance Directives Date on File: 12/12/22 Nutrition Assessment: Recently lost weight without trying: No Occupation Assessmet: service: No Current occupational status: employed Current occupation: [employer] Medications and Allergies Current Medications: Current Medications Acetaminophen (Acetaminophen 325 Mg Tablet) 650 mg PO ONCE PINEDA Stop: 02/25/24 23:59 Last Admin: 02/25/24 13:55 Dose: 650 mg Diphenhydramine HCl (Diphenhydramine Hcl 25 Mg Capsule) 25 mg PO ONCE PINEDA Stop: 02/25/24 23:59 Last Admin: 02/25/24 13:55 Dose: 25 mg Heparin Sodium (Porcine) (Heparin Sodium,Porcine Flush 500 Unit/5 Ml Syringe) 500 unit IVFLUSH ONCE PINEDA Stop: 02/25/24 23:59 Last Admin: 02/25/24 13:57 Dose: 500 unit Bevacizumab 300 mg/ Sodium (Chloride) 100 mls @ 200 mls/hr IV ONCE PINEDA Stop: 02/25/24 23:59 Last Admin: 02/25/24 14:49 Dose: 200 mls/hr Ondansetron HCl (Ondansetron Odt 8 Mg Tab.Rapdis) 8 mg TRANSLINGU ONCE PINEDA Stop: 02/25/24 23:59 Last Admin: 02/25/24 13:56 Dose: 8 mg Home Medications ?Medication ?Instructions ?Recorded ?Confirmed ?Type acetaminophen 650 mg 650 mg PO Q6H PRN Pain 08/04/22 02/11/24 History tablet,extended release Allergies Allergy/AdvReac Type Severity Reaction Status Date / Time prednisone [PREDNISONE] AdvReac Intermediate Psychosis Verified 02/11/24 13:52 Exam Vital signs: Vital Signs Temp 97.0 F 02/25/24 13:17 Pulse 81 02/25/24 13:17 Resp 16 02/25/24 13:17 BP 117/59 L 02/25/24 13:17 Pulse Ox 93 02/25/24 13:17 O2 Del Method Room Air 02/25/24 13:17 Intake & Output 02/24/24 02/25/24 02/25/24 18:59 06:59 18:59 Other: Weight 57.9 kg Weight in Grams 07205 Weight 57.9 kg BMI result Body Mass Index 17.8 - Constitutional Present: no acute distress, chronically ill appearing - Routine HEENT Exam Head: Present: normal inspection - Routine Neck Exam Present: full ROM. Absent: lymphadenopathy - Routine Respiratory Exam Present: CTAB - Routine Cardiovascular Exam Cardiovascular: Present: RRR, S1, S2 - Routine Abdominal Exam Present: normal bowel sounds, soft. Absent: mass, organomegaly - Routine Extremities Exam Present: full ROM. Absent: calf tenderness, pedal edema - Routine Skin Exam Present: intact. Absent: cyanosis, erythema - Routine Neurological Exam Present: alert, oriented X3 Data - Labs CBC & Chem 7: 02/25/24 13:10 02/25/24 13:10 Assessment and Plan Patient Active problem list reviewed?: Yes (1) Colon cancer metastasized to liver Status: Inactive Assessment and plan: 1. This is a 63-year-old gentleman, with metastatic colon carcinoma, ? cecal/rt colon primary with liver and lung metastases. Biopsy of the liver lesion, Moderately differentiated adenocarcinoma. KRAS and BRAF negative. NRAS negative, MSI proficient or MSI stable. HER2 and panTRK negative. Initial CEA elevated at 91. He developed bowel obstruction, palliative bypass ileostomy has been performed in November 2018. He started on mFOLFOX/Avastin regimen from 11/27/2018. His last treatment cycle 13 was on 05/14/2019. He was on maintenance Xeloda 1500 mg p.o. b.i.d. 2 weeks on/1 week off, along with bevacizumab Q 3 weeks starting 10/22/2019 until 12/13/2020. Rising CEA as well as imaging in November 2020 showed evidence of progressive disease. He started irinotecan with bevacizumab from December 2020 until 07/2022. CT chest/ abdomen and pelvis in July 2022 showed progression in lung nodules. CEA penelope to 18.8 NG/mL. Treatment was changed to FOLFIRI Avastin. He was switched to Lonsurf (trifluridine and tipiracil) with Avastin in the 3rd line setting from 09/03/2023. Dose of Lonsurf is 60 mg b.i.d. day 1-5 and day 8- 12 Q 28 day cycle. Avastin will be administered D1 and 15. 2. 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 He has been tapered off prednisone and CellCept. He is also off the oxygen. 3. Chronic arthralgias. MS Contin was discontinued as it was not getting absorbed and coming out through his ostomy. He is now on fentanyl 50 mcg q.72 hours. Is not holding him for the 3 days, dose will be increased to 75 mcg q.72 hours. He is on oxycodone 5 mg for breakthrough pain 2 to 3 times a day. 4. Intermittent elevation of bilirubin, indirect bilirubinemia, probable Gilbert's syndrome. 5. Acute renal failure with hyperkalemia. He was admitted to the hospital 2022, nephrology consult was obtained. Imaging did not reveal hydronephrosis or obstructive uropathy. His acute kidney injury was related to prerenal azotemia secondary to poor intake and pneumonia. He was treated with IV hydration and antibiotics for pneumonia. He is feeling better now. His kidney functions have normalized. 6. Pancytopenia secondary to ongoing chemotherapy. 7. Hyponatremia, probably related to malignancy. SIADH is possible. I have advised him to increase salt intake. Because of severe myelosuppression, dose of Lonsurf was decreased to 40 mg b.i.d.. This was further reduced to 6 days per cycle rather than 10 days. Proceed with treatment today. Submit CEA level and PET scan. Follow-up in 1 month. - Time Spent With Patient Time Spent with Patient (in minutes): 15
--- NOTE | 2024-02-25 15:17 | MHC.HEMONC ---
C5D15: AVASTIN+LONSURF. Port accessed without difficulty-positive blood return. CBC/CMP reviewed. UA unremarkable. VSS. Patient reports fatigue otherwise no other complaints. Pre-medicated with Tylenol 650mg PO, Benadryl 25mg PO, and Pepcid 20mg PO. Infusion well tolerated. Patient remains on Lonsurf 20mg BID days 1-3 and Day 8-10 every 28 days. Patient to re-start Lonsurf on 03/10 with C6D1: Avastin. Calender provided with instructions when to take this medication. Patient verbalizes understanding. Port flushed with Heparin and de-accessed. Patient declined wheelchair- ambulated with steady gait. Follow up with Dr. Mckee today. PET scan ordered.
--- NOTE | 2024-02-25 15:22 | HO.HEMONCPA ---
Addendum entered by Jo Samaniego 03/03/24 09:29: SANDRO APPROVED AUTH # [id number] DOS 02/26 - 08/12/24 FAXED FOR SCHEDULING TO [facility] PET[facility] ([facility]) FOR SCHEDULING Original Note: SANDRO PENDING FOR PET/CT SKULL TO THIGH [id number] AWAITING DECISION FROM [facility]
[2024-03-03 14:24] VITALS: BP 114/62; PULSE 75; TEMP 36.2; O2SAT 95; BMI 17.5
--- NOTE | 2024-03-03 15:05 | MHC.HEMONCMA ---
pt was seen today for metastatic colon cancer f/u, vss. pt will f/u with provider in 1 month.
--- NOTE | 2024-03-03 15:21 | PM.HEMONCPN ---
Medical Summary - Medical Summary Date of Service: 03/03/24 Chief complaint: Anorexia/weight loss Primary Care Provider: Jono Headley MD Medical Summary: Metastatic colon cancer diagnosed in October 2018. Presented with abdominal pain, 30 pound weight loss and severe pain. He had abnormal colonoscopy in 2009. He was told he needed a repeat colonoscopy in 5 years but he did not go for testing. CT abdomen/pelvis with IV contrast shows multiple areas of wall thickening in the sigmoid colon as well as thickening and enhancement of cecum, terminal ileum. Long segment of wall thickening of the distal transverse colon and left colon. Enlarged mesenteric and retroperitoneal lymph nodes, multiple liver metastasis and lung metastasis, all of these worrisome for metastatic colorectal malignancy. 11/01/18-Core biopsy of the right liver mass, moderately differentiated adenocarcinoma consistent with colorectal primary. KRAS mutation not detected BRAF mutation not detected. NRAS negative, MSI proficient or MSI stable. He developed bowel obstruction, palliative bypass ileostomy has been performed in November 2018. He started on mFOLFOX/Avastin regimen from 11/27/2018. His last treatment cycle 13 was on 05/14/2019. 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 Repeat CT abdomen/pelvis on 09/18/2019 showed further decrease in size of liver metastasis. He was on maintenance Xeloda 1500 mg p.o. b.i.d. 2 weeks on/1 week off, along with bevacizumab Q 3 weeks starting 10/22/2019 until 12/13/2020. Rising CEA as well as imaging in November 2020 showed evidence of progressive disease. He started irinotecan with bevacizumab from December 2020. CT chest/ abdomen and pelvis in July 2022 showed progression in lung nodules. CEA penelope to 18.8 NG/mL. Treatment was changed to FOLFIRI Avastin. CT chest 2022 disease progression with increase in size of bilateral pulmonary nodules. CEA level now above 50. PET-CT performed 08/14/2023 showed left upper lobe lung nodule measuring 2.2 cm with SUV 6.8, multiple lesions throughout both lobes of liver largest measuring 5.3 x 2.7 cm with SUV is 5.3. Because of disease progression, he has been switched to Lonsurf (trifluridine and tipiracil) with Avastin in the 3rd line setting from 09/03/2023. Interval History Interval history: Patient is here in follow-up. He is accompanied by his , Selena today. They report progressive loss of appetite and weight loss. They want to know if they can use Marinol. He denies any acute symptoms such as shortness of breath or chest pain, dizziness or palpitations. Review of Systems - Constitutional Reports anorexia, Reports lack of energy, Reports weight loss - ENT Denies vertigo, Denies dizziness - Cardiovascular Denies chest pain with activity - Gastrointestinal Reports abdominal pain [facility] Medical History: Medical History (Last Reviewed 03/03/24 @ 14:23 by Sarthak Caldwell) Chronic respiratory failure Colon cancer metastasized to liver Colon cancer metastasized to liver Colon cancer metastasized to liver Encounter for ostomy care education Hyponatremia ILD (interstitial lung disease) Multifocal pneumonia Pulmonary fibrosis Pulmonary nodule Tubular adenoma Family History: Family History (Last Reviewed 03/03/24 @ 14:23 by Sarthak Caldwell) Son Cystic fibrosis Brother Esophageal cancer Maternal Aunt Lung cancer Surgical History: Surgical History (Last Reviewed 03/03/24 @ 14:23 by Sarthak Caldwell) H/O knee surgery Social History: Social History (Last Reviewed 03/03/24 @ 14:23 by Sarthak Caldwell) Living Situation History: Household Members: Spouse Housing: House Do you presently have visiting nurse or other home services: Yes Tobacco History: Patient Tobacco Use Status: Former Tobacco user Tobacco use type: Cigarette e-Cigarette/Vaping Use: Former Use Second Hand Smoke Exposure: No Substance Use History: Use of substances other than those prescribed or required for medical reasons: No Substance Use Type: Marijuana Advance Directives: Advance Directives: Yes Advance Directives Information Provided: No Advance Directives on File: Yes Advance Directives Date on File: 12/12/22 Nutrition Assessment: Recently lost weight without trying: No Occupation Assessmet: service: No Current occupational status: employed Current occupation: [employer] Medications and Allergies Home Medications ?Medication ?Instructions ?Recorded ?Confirmed ?Type acetaminophen 650 mg 650 mg PO Q6H PRN Pain 08/04/22 03/03/24 History tablet,extended release Allergies Allergy/AdvReac Type Severity Reaction Status Date / Time prednisone [PREDNISONE] AdvReac Intermediate Psychosis Verified 03/03/24 14:23 Exam Vital signs: Vital Signs Temp 97.1 F 03/03/24 14:24 Pulse 75 03/03/24 14:24 Resp 16 02/25/24 13:17 BP 114/62 03/03/24 14:24 Pulse Ox 95 03/03/24 14:24 O2 Del Method Room Air 03/03/24 14:24 Intake & Output 03/02/24 03/03/24 03/03/24 18:59 06:59 18:59 Other: Weight 56.9 kg Weight in Grams 11612 Weight 56.9 kg BMI result Body Mass Index 17.5 - Constitutional Present: no acute distress, chronically ill appearing - Routine HEENT Exam Head: Present: normal inspection - Routine Neck Exam Present: full ROM. Absent: lymphadenopathy - Routine Respiratory Exam Present: CTAB - Routine Cardiovascular Exam Cardiovascular: Present: RRR, S1, S2 - Routine Abdominal Exam Present: normal bowel sounds, soft. Absent: mass, organomegaly - Routine Extremities Exam Present: full ROM. Absent: calf tenderness, pedal edema - Routine Skin Exam Present: intact. Absent: cyanosis, erythema - Routine Neurological Exam Present: alert, oriented X3 Data - Labs CBC & Chem 7: 02/25/24 13:10 02/25/24 13:10 Assessment and Plan Patient Active problem list reviewed?: Yes (1) Colon cancer metastasized to liver Status: Inactive Assessment and plan: 1. This is a 63-year-old gentleman, with metastatic colon carcinoma, ? cecal/rt colon primary with liver and lung metastases. Biopsy of the liver lesion, Moderately differentiated adenocarcinoma. KRAS and BRAF negative. NRAS negative, MSI proficient or MSI stable. HER2 and panTRK negative. Initial CEA elevated at 91. He developed bowel obstruction, palliative bypass ileostomy has been performed in November 2018. He started on mFOLFOX/Avastin regimen from 11/27/2018. His last treatment cycle 13 was on 05/14/2019. He was on maintenance Xeloda 1500 mg p.o. b.i.d. 2 weeks on/1 week off, along with bevacizumab Q 3 weeks starting 10/22/2019 until 12/13/2020. Rising CEA as well as imaging in November 2020 showed evidence of progressive disease. He started irinotecan with bevacizumab from December 2020 until 07/2022. CT chest/ abdomen and pelvis in July 2022 showed progression in lung nodules. CEA penelope to 18.8 NG/mL. Treatment was changed to FOLFIRI Avastin. He was switched to Lonsurf (trifluridine and tipiracil) with Avastin in the 3rd line setting from 09/03/2023. Dose of Lonsurf is 60 mg b.i.d. day 1-5 and day 8-12 Q 28 day cycle. Avastin will be administered D1 and 15. Because of severe myelosuppression, dose of Lonsurf was decreased to 40 mg b.i.d.. This was further reduced to 6 days per cycle rather than 10 days. 2. 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 He has been tapered off prednisone and CellCept. He is also off the oxygen. 3. Chronic arthralgias. MS Contin was discontinued as it was not getting absorbed and coming out through his ostomy. He is now on fentanyl 50 mcg q.72 hours. Is not holding him for the 3 days, dose will be increased to 75 mcg q.72 hours. He is on oxycodone 5 mg for breakthrough pain 2 to 3 times a day. 4. Intermittent elevation of bilirubin, indirect bilirubinemia, probable Gilbert's syndrome. 5. Acute renal failure with hyperkalemia. He was admitted to the hospital 2022, nephrology consult was obtained. Imaging did not reveal hydronephrosis or obstructive uropathy. His acute kidney injury was related to prerenal azotemia secondary to poor intake and pneumonia. He was treated with IV hydration and antibiotics for pneumonia. He is feeling better now. His kidney functions have normalized. 6. Pancytopenia secondary to ongoing chemotherapy. 7. Hyponatremia, probably related to malignancy. SIADH is possible. I have advised him to increase salt intake. 8. Anorexia/weight loss secondary to ongoing treatment as well as progressive cancer. CEA is going up. I discussed this with the patient and his . Lots of with Avastin will be discontinued at this time. PET-CT has been ordered. Possible next line treatment could be single agent cetuximab. However, response at this stage of his treatment is not expected to be good. We discussed best care versus ongoing treatment. They will think about it. PET scan to be scheduled in the next few days. Follow-up in 1 month. - Time Spent With Patient Time Spent with Patient (in minutes): 20 Additional Coding: - Additional E/M codes Complex E/M visit Add On: CPT G2211
--- NOTE | 2024-03-05 16:32 | MHC.HEMONC ---
Triage call from [id number] to confirm Lonsurf is discontinued. Per Dr Mckee's report, Kylah has been dc'd.
[2024-03-10 13:25] LABS: MANUAL DIFF FLAG NO
[2024-03-10 13:26] LABS: Eosinophils Absolute Auto 0.1 X10*3/uL (0.0-0.4); Eosinophils Percent Auto 1.8 % (0-4); Hematocrit 32.1 % (42.0-52.0); Hemoglobin 11.2 g/dl (14.0-18.0); Imm Gran Abs Auto 0.01 X10*3/uL (0.00-0.03); Imm Gran Pct Auto 0.4 % (0.0-0.4); Lymphocytes Absolute Auto 0.6 X10*3/uL (1.2-4.9); Lymphocytes Percent Auto 20.5 % (20-40); Mean Corpuscular HGB Conc 34.9 g/dl (31.0-36.0); Mean Corpuscular Hemoglobin 37.3 pg (27.0-33.0); Mean Platelet Volume 12.2 fL (9.4-12.4); Monocytes Absolute Auto 0.5 X10*3/uL (0.1-1.2); Monocytes Percent Auto 19.8 % (2-11); Neutrophils Absolute Auto 1.6 x10*3/uL (2.0-8.3); Neutrophils Percent Auto 57.5 % (45-73); White Blood Count 2.7 X10*3/uL (4.8-10.8)
[2024-03-10 13:31] VITALS: BP 108/60; PULSE 74; RESP 16; TEMP 36.1; O2SAT 94
[2024-03-10 13:32] VITALS: BMI 17.6
[2024-03-10 13:38] LABS: Platelet Count 73 X10*3/uL (160-400)
[2024-03-10 13:46] LABS: Alanine Aminotransferase 30 U/L (0-40); Albumin Level 3.2 g/dL (3.5-5.0); Alkaline Phosphatase 182 U/L (39-117); Anion Gap 12 (12-20); Aspartate Amino Transferase 70 U/L (5-37); Bilirubin Total 1.4 mg/dL (0.0-1.0); Blood Urea Nitrogen 7 mg/dL (9-16); Calcium 9.1 mg/dL (8.4-10.2); Carbon Dioxide 24 mmol/L (22-29); Chloride 100 mmol/L (96-108); Creatinine Clr Calc Pharmacy 75.5; Estimated Glomerular Filt Rate > 60; Glucose Random 100 mg/dL (60-115); Potassium 4.1 mmol/L (3.3-5.1); Sodium 132 mmol/L (135-145); Total Protein 7.6 g/dL (6.5-8.0)
[2024-03-10] MEDS: oxyCODONE HCl Immed Release 5 MG TABLET 10 MG PO (13:53)
[2024-03-10] MEDS: 0.9 % Sodium Chloride 500 ML IV (13:55)
--- NOTE | 2024-03-10 14:26 | HO.HEMONCSCH ---
Patient scheduled for PETCT at [facility] Pet/CT ([facility]) for March 14 at 12pm
--- NOTE | 2024-03-10 15:26 | HO.HEMONCPA ---
Addendum entered by Jo Samaniego 07/14/24 13:31: Fru[employer] Approved DOS 07/14/24 - 07/14/25 Addendum entered by Jo Samaniego 03/11/24 13:09: SANDRO APPROVED FOR CETUXIMAB [id number] AUTH # [id number] DOS 03/17/24 - 03/16/25 FOR 52 VISITS Original Note: SANDRO PENDING FOR CETUXIMAB [id number] AWAITING DECISION FROM [facility]
--- NOTE | 2024-03-10 16:30 | MHC.HEMONC ---
Lab appt/hydration: Patient reports feeling extremely fatigued, unable to sleep or get comfortable, and increased pain throughout body. Dr. Mckee notified. Port to right chest wall accessed. Labs obtained and reviewed. Patient is tearful at times with facial grimacing noted. Dr. Mckee notified and ordered Oxycodone 10mg PO- medication administered. Patient resting comfortably. NS 500mls administered over 1 hour and well tolerated. PET scan is scheduled for this Wednesday 03/14. Dr. Mckee would like patient to start new regimen with Cetuximab next week. Port flushed with Heparin and de-accessed. Patient reports feeling better and would like to go home and rest. Refill for Oxycodone sent to pharmacy.
--- NOTE | 2024-03-12 16:05 | MHC.HEMONC ---
Selena pt called asking if there was any meds coming via [employer] because she got a text saying missed delivery x3 and asking for information. This nurse confirmed with [facility] and they DO NOT send anything via [employer] and is probably a scam. Selena notified.
[2024-03-19 13:06] VITALS: BP 117/57; PULSE 75; RESP 18; TEMP 36.4; O2SAT 96; BMI 17.4
[2024-03-19 13:38] LABS: MANUAL DIFF FLAG NO
[2024-03-19 13:43] LABS: Basophils Percent Auto 0.2 % (0-2); Eosinophils Absolute Auto 0.1 X10*3/uL (0.0-0.4); Eosinophils Percent Auto 2.2 % (0-4); Hematocrit 32.1 % (42.0-52.0); Hemoglobin 11.1 g/dl (14.0-18.0); Imm Gran Abs Auto 0.01 X10*3/uL (0.00-0.03); Imm Gran Pct Auto 0.2 % (0.0-0.4); Lymphocytes Absolute Auto 0.5 X10*3/uL (1.2-4.9); Lymphocytes Percent Auto 12.7 % (20-40); Mean Corpuscular HGB Conc 34.6 g/dl (31.0-36.0); Mean Corpuscular Hemoglobin 37.1 pg (27.0-33.0); Mean Corpuscular Volume 107.4 fL (80.0-98.0); Mean Platelet Volume 12.5 fL (9.4-12.4); Monocytes Absolute Auto 0.5 X10*3/uL (0.1-1.2); Monocytes Percent Auto 11.3 % (2-11); Neutrophils Absolute Auto 3.1 x10*3/uL (2.0-8.3); Neutrophils Percent Auto 73.4 % (45-73); Platelet Count 94 X10*3/uL (160-400); Red Blood Count 2.99 X10*6/uL (4.60-5.80); Red Cell Distribution Width 15.6 % (11.0-16.0); White Blood Count 4.2 X10*3/uL (4.8-10.8)
[2024-03-19 14:01] LABS: Alanine Aminotransferase 27 U/L (0-40); Albumin Level 3.1 g/dL (3.5-5.0); Alkaline Phosphatase 152 U/L (39-117); Anion Gap 11 (12-20); Aspartate Amino Transferase 52 U/L (5-37); Bilirubin Total 1.1 mg/dL (0.0-1.0); Blood Urea Nitrogen 10 mg/dL (9-16); Calcium 9.1 mg/dL (8.4-10.2); Carbon Dioxide 22 mmol/L (22-29); Chloride 104 mmol/L (96-108); Creatinine Clr Calc Pharmacy 80.9; Estimated Glomerular Filt Rate > 60; Glucose Random 130 mg/dL (60-115); Magnesium 2.1 mg/dL (1.6-2.6); Potassium 4.1 mmol/L (3.3-5.1); Sodium 133 mmol/L (135-145); Total Protein 7.5 g/dL (6.5-8.0)
[2024-03-19] MEDS: diphenhydrAMINE HCL 25 MG CAPSULE PO (14:37)
[2024-03-19] MEDS: Ondansetron ODT 8 MG TAB.RAPDIS TRANSLINGU (14:37)
[2024-03-19] MEDS: Acetaminophen 325 MG TABLET 650 MG PO (14:37)
[2024-03-19] MEDS: Heparin Sodium,Porcine Flush 500 UNIT/5 ML SYRINGE IVFLUSH (14:42)
[2024-03-19] MEDS: CONTAINER EMPTY IV (15:31)
[2024-03-19] MEDS: CETUXIMAB IV (15:31)
--- NOTE | 2024-03-19 15:36 | MHC.HEMONC ---
pt tolerated first well, no s/sx of reaction. chemo teach done, consent signed and carenotes given
[2024-03-26 13:09] VITALS: BP 115/71; PULSE 97; RESP 18; TEMP 36.6; O2SAT 93; BMI 17.5
[2024-03-26 13:37] LABS: MANUAL DIFF FLAG NO
[2024-03-26 13:54] LABS: Alanine Aminotransferase 52 U/L (0-40); Alkaline Phosphatase 165 U/L (39-117); Anion Gap 11 (12-20); Aspartate Amino Transferase 75 U/L (5-37); Bilirubin Total 0.9 mg/dL (0.0-1.0); Blood Urea Nitrogen 9 mg/dL (9-16); Carbon Dioxide 25 mmol/L (22-29); Chloride 103 mmol/L (96-108); Creatinine Clr Calc Pharmacy 82.3; Estimated Glomerular Filt Rate > 60; Glucose Random 106 mg/dL (60-115); Sodium 135 mmol/L (135-145); Total Protein 7.3 g/dL (6.5-8.0)
[2024-03-26 14:02] LABS: Basophils Percent Auto 0.7 % (0-2); Eosinophils Absolute Auto 0.2 X10*3/uL (0.0-0.4); Hematocrit 33.7 % (42.0-52.0); Hemoglobin 11.5 g/dl (14.0-18.0); Imm Gran Abs Auto 0.01 X10*3/uL (0.00-0.03); Imm Gran Pct Auto 0.2 % (0.0-0.4); Lymphocytes Absolute Auto 0.7 X10*3/uL (1.2-4.9); Lymphocytes Percent Auto 16.2 % (20-40); Mean Corpuscular HGB Conc 34.1 g/dl (31.0-36.0); Mean Corpuscular Hemoglobin 36.5 pg (27.0-33.0); Mean Platelet Volume 12.9 fL (9.4-12.4); Monocytes Absolute Auto 0.5 X10*3/uL (0.1-1.2); Monocytes Percent Auto 11.4 % (2-11); Neutrophils Absolute Auto 2.8 x10*3/uL (2.0-8.3); Neutrophils Percent Auto 67.5 % (45-73); Platelet Count 94 X10*3/uL (160-400); Red Blood Count 3.15 X10*6/uL (4.60-5.80); Red Cell Distribution Width 15.5 % (11.0-16.0); White Blood Count 4.2 X10*3/uL (4.8-10.8)
--- NOTE | 2024-03-26 15:03 | MHC.HEMONC ---
Milind came in to see Dr Mckee. His new treatment is q 14 days. We reviewed this. He talked with MD about his side effects and she is adjusting his pain med. He had labs and will return next week for c#2.
--- NOTE | 2024-03-28 09:41 | MHC.HEMONC ---
Triage - Pt's called to request a refill of fentanyl patches. Selena stated that you were going to increase the dose. msg sent to Dr Mckee
--- NOTE | 2024-03-28 09:48 | P.PNHO-ONC_ITS ---
Medical Summary - Medical Summary Date of Service: 03/26/24 Chief complaint: Follow-up Primary Care Provider: Jono Headley MD Medical Summary: Metastatic colon cancer diagnosed in October 2018. Presented with abdominal pain, 30 pound weight loss and severe pain. He had abnormal colonoscopy in 2009. He was told he needed a repeat colonoscopy in 5 years but he did not go for testing. CT abdomen/pelvis with IV contrast shows multiple areas of wall thickening in the sigmoid colon as well as thickening and enhancement of cecum, terminal ileum. Long segment of wall thickening of the distal transverse colon and left colon. Enlarged mesenteric and retroperitoneal lymph nodes, multiple liver metastasis and lung metastasis, all of these worrisome for metastatic colorectal malignancy. 11/01/18-Core biopsy of the right liver mass, moderately differentiated adenocarcinoma consistent with colorectal primary. KRAS mutation not detected BRAF mutation not detected. NRAS negative, MSI proficient or MSI stable. He developed bowel obstruction, palliative bypass ileostomy has been performed in November 2018. He started on mFOLFOX/Avastin regimen from 11/27/2018. His last treatment cycle 13 was on 05/14/2019. 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 Repeat CT abdomen/pelvis on 09/18/2019 showed further decrease in size of liver metastasis. He was on maintenance Xeloda 1500 mg p.o. b.i.d. 2 weeks on/1 week off, along with bevacizumab Q 3 weeks starting 10/22/2019 until 12/13/2020. Rising CEA as well as imaging in November 2020 showed evidence of progressive disease. He started irinotecan with bevacizumab from December 2020. CT chest/ abdomen and pelvis in July 2022 showed progression in lung nodules. CEA penelope to 18.8 NG/mL. Treatment was changed to FOLFIRI Avastin. CT chest 2022 disease progression with increase in size of bilateral pulmonary nodules. CEA level now above 50. PET-CT performed 08/14/2023 showed left upper lobe lung nodule measuring 2.2 cm with SUV 6.8, multiple lesions throughout both lobes of liver largest measuring 5.3 x 2.7 cm with SUV is 5.3. Because of disease progression, he has been switched to Lonsurf (trifluridine and tipiracil) with Avastin in the 3rd line setting from 09/03/2023. Interval History Interval history: Patient is here in follow-up. He is doing okay, tolerating cetuximab fairly well. He has not had any rash thus far. No nausea or diarrhea. He does report increased pain in his back and abdomen. He is requesting for increasing his pain medication. No chest pain or shortness of breath. His weight is holding. Review of Systems - Neurologic Denies vertigo, Denies dizziness PMF Medical History: Medical History (Last Reviewed 03/03/24 @ 14:23 by Sarthak Caldwell) Chronic respiratory failure Colon cancer metastasized to liver Colon cancer metastasized to liver Colon cancer metastasized to liver Encounter for ostomy care education Hyponatremia ILD (interstitial lung disease) Multifocal pneumonia Pulmonary fibrosis Pulmonary nodule Tubular adenoma Family History: Family History (Last Reviewed 03/03/24 @ 14:23 by Sarthak Caldwell) Son Cystic fibrosis Brother Esophageal cancer Maternal Aunt Lung cancer Surgical History: Surgical History (Last Reviewed 03/03/24 @ 14:23 by Sarthak Caldwell) H/O knee surgery Social History: Social History (Last Reviewed 03/03/24 @ 14:23 by Sarthak Caldwell) Living Situation History: Household Members: Spouse Housing: House Do you presently have visiting nurse or other home services: Yes Tobacco History: Patient Tobacco Use Status: Former Tobacco user Tobacco use type: Cigarette e-Cigarette/Vaping Use: Former Use Second Hand Smoke Exposure: No Substance Use History: Use of substances other than those prescribed or required for medical reasons : No Substance Use Type: Marijuana Advance Directives: Advance Directives: Yes Advance Directives Information Provided: No Advance Directives on File: Yes Advance Directives Date on File: 12/12/22 Nutrition Assessment: Recently lost weight without trying: No Occupation Assessmet: service: No Current occupational status: employed Current occupation: [employer] Medications and Allergies Home Medications ?Medication ?Instructions ?Recorded ?Confirmed ?Type acetaminophen 650 mg 650 mg PO Q6H PRN Pain 08/04/22 03/03/24 History tablet,extended release Allergies Allergy/AdvReac Type Severity Reaction Status Date / Time prednisone [PREDNISONE] AdvReac Intermediate Psychosis Verified 03/03/24 14:23 Exam Vital signs: Vital Signs Temp 97.9 F 03/26/24 13:09 Pulse 97 03/26/24 13:09 Resp 18 03/26/24 13:09 BP 115/71 03/26/24 13:09 Pulse Ox 93 03/26/24 13:09 O2 Del Method Room Air 03/26/24 13:09 Weight 56.9 kg BMI result Body Mass Index 17.5 - Constitutional Present: no acute distress, chronically ill appearing - Routine HEENT Exam Head: Present: normal inspection - Routine Neck Exam Present: full ROM. Absent: lymphadenopathy - Routine Respiratory Exam Present: CTAB - Routine Cardiovascular Exam Cardiovascular: Present: RRR, S1, S2 - Routine Abdominal Exam Present: normal bowel sounds, soft. Absent: mass, organomegaly - Routine Extremities Exam Present: full ROM. Absent: calf tenderness, pedal edema - Routine Skin Exam Present: intact. Absent: cyanosis, erythema - Routine Neurological Exam Present: alert, oriented X3 Data - Labs CBC & Chem 7: 03/26/24 13:20 03/26/24 13:20 Assessment and Plan Patient Active problem list reviewed?: Yes (1) Colon cancer metastasized to liver Status: Inactive Assessment and plan: 1. This is a 63-year-old gentleman, with metastatic colon carcinoma, ? cecal/rt colon primary with liver and lung metastases. Biopsy of the liver lesion, Moderately differentiated adenocarcinoma. KRAS and BRAF negative. NRAS negative, MSI proficient or MSI stable. HER2 and panTRK negative. Initial CEA elevated at 91. He developed bowel obstruction, palliative bypass ileostomy has been performed in November 2018. He started on mFOLFOX/Avastin regimen from 11/27/2018. His last treatment cycle 13 was on 05/14/2019. He was on maintenance Xeloda 1500 mg p.o. b.i.d. 2 weeks on/1 week off, along with bevacizumab Q 3 weeks starting 10/22/2019 until 12/13/2020. Rising CEA as well as imaging in November 2020 showed evidence of progressive disease. He started irinotecan with bevacizumab from December 2020 until 07/2022. CT chest/ abdomen and pelvis in July 2022 showed progression in lung nodules. CEA penelope to 18.8 NG/mL. Treatment was changed to FOLFIRI Avastin. He was switched to Lonsurf (trifluridine and tipiracil) with Avastin in the 3rd line setting from 09/03/2023. Dose of Lonsurf is 60 mg b.i.d. day 1-5 and day 8- 12 Q 28 day cycle. Avastin will be administered D1 and 15. Because of severe myelosuppression, dose of Lonsurf was decreased to 40 mg b.i.d.. Because of rising tumor marker, he had a PET-CT in 04/01/2024 which unfortunately revealed increase in size and number of multiple liver lesions, largest in the right hepatic lobe with SUV max of 10.1, FDG avid internal iliac and external iliac lymph nodes, multiple FDG avid pulmonary nodules increased in number, increasing thoracic lymphadenopathy and right-sided pleural nodularity suspicious for metastatic disease. FDG avid left-sided pelvic lymphadenopathy suspicious for metastatic disease. He was switched to cetuximab in 04/01/2024. 2. 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 He has been tapered off prednisone and CellCept. He is also off the oxygen. 3. Chronic arthralgias. MS Contin was discontinued as it was not getting absorbed and coming out through his ostomy. He is now on fentanyl 50 mcg q.72 hours. Is not holding him for the 3 days, dose will be increased to 75 mcg q.72 hours. He is on oxycodone 5 mg for breakthrough pain 2 to 3 times a day. Because of increasing pain, increasing dose of fentanyl to 75 mcg q.72 hours. 4. Intermittent elevation of bilirubin, indirect bilirubinemia, probable Gilbert's syndrome. 5. Acute renal failure with hyperkalemia. He was admitted to the hospital 2022, nephrology consult was obtained. Imaging did not reveal hydronephrosis or obstructive uropathy. His acute kidney injury was related to prerenal azotemia secondary to poor intake and pneumonia. He was treated with IV hydration and antibiotics for pneumonia. He is feeling better now. His kidney functions have normalized. 6. Pancytopenia secondary to ongoing chemotherapy. 7. Hyponatremia, probably related to malignancy. SIADH is possible. I have advised him to increase salt intake. 8. Anorexia/weight loss secondary to ongoing treatment as well as progressive cancer. CEA is going up. I discussed this with the patient and his . Lots of with Avastin will be discontinued at this time. PET-CT has been ordered. Follow-up in 1 month. - Time Spent With Patient Time Spent with Patient (in minutes): 25 Additional Coding: - Additional E/M codes Complex E/M visit Add On: CPT G2211
[2024-04-02 11:28] VITALS: BP 113/56; PULSE 86; RESP 18; TEMP 36.4; O2SAT 92; BMI 17.7
[2024-04-02 11:50] LABS: MANUAL DIFF FLAG NO
[2024-04-02 11:51] LABS: Basophils Percent Auto 0.5 % (0-2); Eosinophils Absolute Auto 0.2 X10*3/uL (0.0-0.4); Eosinophils Percent Auto 5.6 % (0-4); Hematocrit 32.3 % (42.0-52.0); Hemoglobin 11.1 g/dl (14.0-18.0); Imm Gran Abs Auto 0.01 X10*3/uL (0.00-0.03); Imm Gran Pct Auto 0.3 % (0.0-0.4); Lymphocytes Absolute Auto 0.8 X10*3/uL (1.2-4.9); Lymphocytes Percent Auto 19.9 % (20-40); Mean Corpuscular HGB Conc 34.4 g/dl (31.0-36.0); Mean Corpuscular Hemoglobin 36.9 pg (27.0-33.0); Mean Corpuscular Volume 107.3 fL (80.0-98.0); Mean Platelet Volume 12.8 fL (9.4-12.4); Monocytes Absolute Auto 0.4 X10*3/uL (0.1-1.2); Monocytes Percent Auto 9.4 % (2-11); Neutrophils Absolute Auto 2.5 x10*3/uL (2.0-8.3); Neutrophils Percent Auto 64.3 % (45-73); Platelet Count 75 X10*3/uL (160-400); Red Blood Count 3.01 X10*6/uL (4.60-5.80); Red Cell Distribution Width 15.3 % (11.0-16.0); White Blood Count 3.9 X10*3/uL (4.8-10.8)
[2024-04-02 12:04] LABS: Alanine Aminotransferase 43 U/L (0-40); Alkaline Phosphatase 135 U/L (39-117); Anion Gap 9 (12-20); Aspartate Amino Transferase 63 U/L (5-37); Bilirubin Total 1.5 mg/dL (0.0-1.0); Blood Urea Nitrogen 10 mg/dL (9-16); Calcium 9.3 mg/dL (8.4-10.2); Carbon Dioxide 26 mmol/L (22-29); Chloride 106 mmol/L (96-108); Creatinine Clr Calc Pharmacy 77.7; Estimated Glomerular Filt Rate > 60; Glucose Random 114 mg/dL (60-115); Magnesium 1.9 mg/dL (1.6-2.6); Sodium 137 mmol/L (135-145); Total Protein 7.2 g/dL (6.5-8.0)
[2024-04-02] MEDS: Acetaminophen 325 MG TABLET 650 MG PO (12:29)
[2024-04-02] MEDS: Ondansetron ODT 8 MG TAB.RAPDIS TRANSLINGU (12:30)
[2024-04-02] MEDS: diphenhydrAMINE HCL 25 MG CAPSULE PO (12:30)
[2024-04-02] MEDS: Heparin Sodium,Porcine Flush 500 UNIT/5 ML SYRINGE IVFLUSH (12:32)
[2024-04-02] MEDS: CONTAINER EMPTY IV (13:22)
[2024-04-02] MEDS: CETUXIMAB IV (13:22)
--- NOTE | 2024-04-02 15:11 | MHC.HEMONC ---
Pt here for c2D1 Cetuximab. Pt feeling well. No complaints. Port to right chest accessed, good blood return. Labs drawn and results reviewed PLT [address] Mckee. OK to treat. Premeds given and Cetuximab infused. Pt tolerated it well. Pt has script for Minocycline - rash prevention. Port de accessed with heparin. Summary given and pt escorted to main entrance. Gait steady.
--- NOTE | 2024-04-09 08:43 | MHC.HEMONC ---
Addendum entered by Susan Olmedo RN 04/09/24 10:51: No effects from ativan. Dr Mckee aware, and pt to go to ED. Call made to ED for report and pt brought to ED via wheelchair. Addendum entered by Susan Olmedo RN 04/09/24 09:44: Pt here and is extremely anxious, unable to sit still. He and his state that he has been like this for approx 2-3 days. He hasn't slept in 2 nights. He reports starting minocycline 3 days ago. Port accessed with good blood return noted. Labs obtained. Ativan 1mg IV given as ordered. Dr Mckee in to assess pt. Dr Mckee discussed with pt the possibility of being assessed by psych for further treatment. Pt agreeable. He denies any thoughts of self harm. He states he is very scared, and just wants to feel better. Effects of ativan pending. Original Note: Triage call from pts Selena. She states he is very anxious, unable to sleep, pacing, and clammy. She states he doesn't want to go to ED, so she is bringing him here. Dr Mckee aware
[2024-04-09 09:09] VITALS: BP 121/74; PULSE 91; RESP 20; TEMP 36.2; O2SAT 94
[2024-04-09] MEDS: LORazepam 2 MG/ML VIAL 1 MG IVPUSH (09:34)
[2024-04-09 09:42] LABS: Basophils Percent Auto 0.4 % (0-2); Eosinophils Absolute Auto 0.1 X10*3/uL (0.0-0.4); Eosinophils Percent Auto 2.9 % (0-4); Hematocrit 33.3 % (42.0-52.0); Hemoglobin 11.3 g/dl (14.0-18.0); Imm Gran Abs Auto 0.02 X10*3/uL (0.00-0.03); Imm Gran Pct Auto 0.4 % (0.0-0.4); Lymphocytes Absolute Auto 0.5 X10*3/uL (1.2-4.9); Lymphocytes Percent Auto 10.3 % (20-40); MANUAL DIFF FLAG SCAN; Mean Corpuscular HGB Conc 33.9 g/dl (31.0-36.0); Mean Corpuscular Hemoglobin 35.3 pg (27.0-33.0); Mean Corpuscular Volume 104.1 fL (80.0-98.0); Mean Platelet Volume 13.5 fL (9.4-12.4); Monocytes Absolute Auto 0.4 X10*3/uL (0.1-1.2); Monocytes Percent Auto 7.3 % (2-11); Neutrophils Absolute Auto 3.8 x10*3/uL (2.0-8.3); Neutrophils Percent Auto 78.7 % (45-73); PLT CLUMP 1; Red Cell Distribution Width 15.5 % (11.0-16.0); SCAN SMEAR FLAG 1
[2024-04-09 10:05] LABS: Platelet Count 78 X10*3/uL (160-400); White Blood Count 4.7 X10*3/uL (4.8-10.8)
--- NOTE | 2024-04-09 10:06 | HO.HEMONCPA ---
I spoke with Amaya from Crisis Team. I explained Dr Mckee's concern. I informed her of the patient's agitation and restlessness with insomnia. Patient denies suicidal thoughts or similar. I was told that he would need to go to ER for such evaluation and if he did not consent to visit, Dr Mckee could section him to go. I informed Dr Mckee. We will observe for now and have our DRILL FOREMANTaylor meet with him.
[2024-04-09 10:13] LABS: Alanine Aminotransferase 39 U/L (0-40); Albumin Level 3.3 g/dL (3.5-5.0); Alkaline Phosphatase 145 U/L (39-117); Anion Gap 11 (12-20); Aspartate Amino Transferase 60 U/L (5-37); Bilirubin Total 2.3 mg/dL (0.0-1.0); Blood Urea Nitrogen 11 mg/dL (9-16); Calcium 9.6 mg/dL (8.4-10.2); Carbon Dioxide 23 mmol/L (22-29); Chloride 109 mmol/L (96-108); Creatinine Clr Calc Pharmacy 85.5; Estimated Glomerular Filt Rate > 60; Glucose Random 127 mg/dL (60-115); Magnesium 1.8 mg/dL (1.6-2.6); Potassium 3.8 mmol/L (3.3-5.1); Sodium 139 mmol/L (135-145); Total Protein 7.5 g/dL (6.5-8.0)
[2024-04-09 11:40] LABS: SLIDE REVIEW VERIFIED
[2024-04-16 10:56] LABS: MANUAL DIFF FLAG NO
--- NOTE | 2024-04-16 10:57 | PM.HEMONCPN ---
Medical Summary - Medical Summary Date of Service: 04/16/24 Chief complaint: Follow-up Primary Care Provider: Jono Headley MD Medical Summary: Metastatic colon cancer diagnosed in October 2018. Presented with abdominal pain, 30 pound weight loss and severe pain. He had abnormal colonoscopy in 2009. He was told he needed a repeat colonoscopy in 5 years but he did not go for testing. CT abdomen/pelvis with IV contrast shows multiple areas of wall thickening in the sigmoid colon as well as thickening and enhancement of cecum, terminal ileum. Long segment of wall thickening of the distal transverse colon and left colon. Enlarged mesenteric and retroperitoneal lymph nodes, multiple liver metastasis and lung metastasis, all of these worrisome for metastatic colorectal malignancy. 11/01/18-Core biopsy of the right liver mass, moderately differentiated adenocarcinoma consistent with colorectal primary. KRAS mutation not detected BRAF mutation not detected. NRAS negative, MSI proficient or MSI stable. He developed bowel obstruction, palliative bypass ileostomy has been performed in November 2018. He started on mFOLFOX/Avastin regimen from 11/27/2018. His last treatment cycle 13 was on 05/14/2019. 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 Repeat CT abdomen/pelvis on 09/18/2019 showed further decrease in size of liver metastasis. He was on maintenance Xeloda 1500 mg p.o. b.i.d. 2 weeks on/1 week off, along with bevacizumab Q 3 weeks starting 10/22/2019 until 12/13/2020. Rising CEA as well as imaging in November 2020 showed evidence of progressive disease. He started irinotecan with bevacizumab from December 2020. CT chest/ abdomen and pelvis in July 2022 showed progression in lung nodules. CEA penelope to 18.8 NG/mL. Treatment was changed to FOLFIRI Avastin. CT chest 2022 disease progression with increase in size of bilateral pulmonary nodules. CEA level now above 50. PET-CT performed 08/14/2023 showed left upper lobe lung nodule measuring 2.2 cm with SUV 6.8, multiple lesions throughout both lobes of liver largest measuring 5.3 x 2.7 cm with SUV is 5.3. Because of disease progression, he has been switched to Lonsurf (trifluridine and tipiracil) with Avastin in the 3rd line setting from 09/03/2023. Interval History Interval history: Patient is here in follow-up and scheduled treatment treatment. He is feeling okay now but he presented to the clinic last week with extreme tremulousness and symptoms of anxiety. He had been unable to sleep for 2-3 nights in a row and he was unable to even sit for a few minutes in the office. He was sent to emergency department. He had evaluation in the ED including CT of the brain which was negative for metastasis. He was treated with multiple doses of sedatives and eventually discharged home. He says this has happened before but on a much lesser scale when he was initially diagnosed with cancer. He does not know what triggered this anxiety. He denies taking any other medications or illicit substances. Other than smoking weed and being on pain killers/narcotics he has not on anything else. Years ago he was prescribed medications for his anxiety but he thinks it did not help him. He was also tried on Klonopin briefly and he discontinued it. He also has developed a boil on the left side of his neck. I could slightly tender. He denies any fever or chills. He has not taken minocycline in a few days as he has had no skin rash. Review of Systems - Constitutional Reports as per HPI, Reports malaise - Cardiovascular Reports no additional cardiovascular complaints - Respiratory Reports no additional respiratory complaints - Gastrointestinal Reports no additional gastrointestinal complaints - Neurologic Denies vertigo, Denies dizziness PMFSH Medical History: Medical History (Last Reviewed 03/03/24 @ 14:23 by Sarthak Caldwell) Chronic respiratory failure Colon cancer metastasized to liver Colon cancer metastasized to liver Colon cancer metastasized to liver Encounter for ostomy care education Hyponatremia ILD (interstitial lung disease) Multifocal pneumonia Pulmonary fibrosis Pulmonary nodule Tubular adenoma Family History: Family History (Last Reviewed 03/03/24 @ 14:23 by Sarthak Caldwell) Son Cystic fibrosis Brother Esophageal cancer Maternal Aunt Lung cancer Surgical History: Surgical History (Last Reviewed 03/03/24 @ 14:23 by Sarthak Caldwell) H/O knee surgery Social History: Social History (Last Reviewed 03/03/24 @ 14:23 by Sarthak Caldwell) Living Situation History: Household Members: Spouse Housing: House Do you presently have visiting nurse or other home services: Yes Tobacco History: Patient Tobacco Use Status: Former Tobacco user Tobacco use type: Cigarette e-Cigarette/Vaping Use: Former Use Second Hand Smoke Exposure: No Substance Use History: Use of substances other than those prescribed or required for medical reasons: No Substance Use Type: Marijuana Advance Directives: Advance Directives: Yes Advance Directives Information Provided: No Advance Directives on File: Yes Advance Directives Date on File: 12/12/22 Nutrition Assessment: Recently lost weight without trying: No Occupation Assessmet: service: No Current occupational status: employed 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 [employer] Home Medications and Allergies Home Medications ?Medication ?Instructions ?Recorded ?Confirmed ?Type acetaminophen 650 mg 650 mg PO Q6H PRN Pain 08/04/22 04/10/24 History tablet,extended release loperamide 2 mg tablet (Imodium 4 mg PO DAILY PRN Loose Stool 04/10/24 04/10/24 History A-D) Allergies Allergy/AdvReac Type Severity Reaction Status Date / Time prednisone [PREDNISONE] AdvReac Intermediate Psychosis Verified 04/09/24 10:45 Exam Vital signs: Vital Signs Temp 97.2 F 04/09/24 09:09 Pulse 91 04/09/24 09:09 Resp 20 04/09/24 09:09 BP 121/74 04/09/24 09:09 Pulse Ox 94 04/09/24 09:09 O2 Del Method Room Air 04/09/24 09:09 Weight 57.5 kg BMI result Body Mass Index 17.7 - Constitutional Present: no acute distress, chronically ill appearing - Routine HEENT Exam Head: Present: normal inspection - Routine Neck Exam Present: full ROM. Absent: lymphadenopathy - Routine Respiratory Exam Present: CTAB - Routine Cardiovascular Exam Cardiovascular: Present: RRR, S1, S2 - Routine Abdominal Exam Present: normal bowel sounds, soft. Absent: mass, organomegaly - Routine Extremities Exam Present: full ROM. Absent: calf tenderness, pedal edema - Routine Skin Exam Present: intact. Absent: cyanosis, erythema - Routine Neurological Exam Present: alert, oriented X3 Data - Labs CBC & Chem 7: 04/16/24 10:53 04/16/24 10:53 Assessment and Plan Patient Active problem list reviewed?: Yes (1) Colon cancer metastasized to liver Status: Inactive Assessment and plan: 1. This is a 63-year-old gentleman, with metastatic colon carcinoma, ? cecal/rt colon primary with liver and lung metastases. Biopsy of the liver lesion, Moderately differentiated adenocarcinoma. KRAS and BRAF negative. NRAS negative, MSI proficient or MSI stable. HER2 and panTRK negative. Initial CEA elevated at 91. He developed bowel obstruction, palliative bypass ileostomy has been performed in November 2018. He started on mFOLFOX/Avastin regimen from 11/27/2018. His last treatment cycle 13 was on 05/14/2019. He was on maintenance Xeloda 1500 mg p.o. b.i.d. 2 weeks on/1 week off, along with bevacizumab Q 3 weeks starting 10/22/2019 until 12/13/2020. Rising CEA as well as imaging in November 2020 showed evidence of progressive disease. He started irinotecan with bevacizumab from December 2020 until 07/2022. CT chest/ abdomen and pelvis in July 2022 showed progression in lung nodules. CEA penelope to 18.8 NG/mL. Treatment was changed to FOLFIRI Avastin. He was switched to Lonsurf (trifluridine and tipiracil) with Avastin in the 3rd line setting from 09/03/2023. Dose of Lonsurf is 60 mg b.i.d. day 1-5 and day 8-12 Q 28 day cycle. Avastin will be administered D1 and 15. Because of severe myelosuppression, dose of Lonsurf was decreased to 40 mg b.i.d.. Because of rising tumor marker, he had a PET-CT in 04/01/2024 which unfortunately revealed increase in size and number of multiple liver lesions, largest in the right hepatic lobe with SUV max of 10.1, FDG avid internal iliac and external iliac lymph nodes, multiple FDG avid pulmonary nodules increased in number, increasing thoracic lymphadenopathy and right-sided pleural nodularity suspicious for metastatic disease. FDG avid left-sided pelvic lymphadenopathy suspicious for metastatic disease. He was switched to cetuximab in 04/01/2024. 2. 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 He has been tapered off prednisone and CellCept. He is also off the oxygen. 3. Chronic arthralgias. MS Contin was discontinued as it was not getting absorbed and coming out through his ostomy. He is now on fentanyl 50 mcg q.72 hours. Is not holding him for the 3 days, dose will be increased to 75 mcg q.72 hours. He is on oxycodone 5 mg for breakthrough pain 2 to 3 times a day. Because of increasing pain, increasing dose of fentanyl to 75 mcg q.72 hours. 4. Intermittent elevation of bilirubin, indirect bilirubinemia, probable Gilbert's syndrome. 5. Acute renal failure with hyperkalemia. He was admitted to the hospital 2022, nephrology consult was obtained. Imaging did not reveal hydronephrosis or obstructive uropathy. His acute kidney injury was related to prerenal azotemia secondary to poor intake and pneumonia. He was treated with IV hydration and antibiotics for pneumonia. He is feeling better now. His kidney functions have normalized. 6. Pancytopenia secondary to ongoing chemotherapy. 7. Hyponatremia, probably related to malignancy. SIADH is possible. I have advised him to increase salt intake. 8. Anorexia/weight loss secondary to ongoing treatment as well as progressive cancer. CEA is going up. I discussed this with the patient and his . Lots of with Avastin will be discontinued at this time. PET-CT has been ordered. 9. Acute mental status change/panic attack. Patient was evaluated in the ED on 04/08/2024. Blood work and imaging was unrevealing. Patient says he has had such panic attacks before. He is willing to speak to a counselor. He was on Klonopin and other anxiety medications in the past, unclear why he is not on anything at this time. 10. Suppurative boil left upper neck region. He was prescribed doxycycline 100 mg p.o. b.i.d. for 10 days. Follow-up in 1 month. - Time Spent With Patient Time Spent with Patient (in minutes): 30 Additional Coding: - Additional E/M codes Complex E/M visit Add On: CPT G2211
[2024-04-16 10:58] LABS: Basophils Percent Auto 0.4 % (0-2); Eosinophils Absolute Auto 0.2 X10*3/uL (0.0-0.4); Eosinophils Percent Auto 3.6 % (0-4); Hematocrit 34.3 % (42.0-52.0); Hemoglobin 11.4 g/dl (14.0-18.0); Imm Gran Abs Auto 0.03 X10*3/uL (0.00-0.03); Imm Gran Pct Auto 0.6 % (0.0-0.4); Lymphocytes Absolute Auto 0.6 X10*3/uL (1.2-4.9); Lymphocytes Percent Auto 11.9 % (20-40); Mean Corpuscular HGB Conc 33.2 g/dl (31.0-36.0); Mean Corpuscular Hemoglobin 35.3 pg (27.0-33.0); Mean Corpuscular Volume 106.2 fL (80.0-98.0); Mean Platelet Volume 12.2 fL (9.4-12.4); Monocytes Absolute Auto 0.7 X10*3/uL (0.1-1.2); Monocytes Percent Auto 12.4 % (2-11); Neutrophils Absolute Auto 3.7 x10*3/uL (2.0-8.3); Neutrophils Percent Auto 71.1 % (45-73); Red Blood Count 3.23 X10*6/uL (4.60-5.80); Red Cell Distribution Width 15.9 % (11.0-16.0); White Blood Count 5.2 X10*3/uL (4.8-10.8)
[2024-04-16 10:59] LABS: Platelet Count 83 X10*3/uL (160-400)
[2024-04-16 11:03] VITALS: BP 134/73; PULSE 82; TEMP 36.4; O2SAT 95
[2024-04-16 11:11] LABS: Alanine Aminotransferase 65 U/L (0-40); Albumin Level 3.3 g/dL (3.5-5.0); Alkaline Phosphatase 170 U/L (39-117); Anion Gap 10 (12-20); Aspartate Amino Transferase 92 U/L (5-37); Bilirubin Total 1.7 mg/dL (0.0-1.0); Blood Urea Nitrogen 13 mg/dL (9-16); Calcium 9.4 mg/dL (8.4-10.2); Carbon Dioxide 20 mmol/L (22-29); Chloride 110 mmol/L (96-108); Creatinine Clr Calc Pharmacy 84.3; Estimated Glomerular Filt Rate > 60; Glucose Random 104 mg/dL (60-115); Sodium 135 mmol/L (135-145); Total Protein 7.5 g/dL (6.5-8.0)
[2024-04-16] MEDS: Acetaminophen 325 MG TABLET 650 MG PO (12:09)
[2024-04-16] MEDS: diphenhydrAMINE HCL 25 MG CAPSULE PO (12:09)
[2024-04-16] MEDS: Heparin Sodium,Porcine Flush 500 UNIT/5 ML SYRINGE IVFLUSH (12:10)
[2024-04-16] MEDS: Ondansetron ODT 8 MG TAB.RAPDIS TRANSLINGU (12:10)
--- NOTE | 2024-04-16 12:15 | MHC.HEMONC ---
pt feeling much better since last week. presents with abscess to l neck, po abx ordered. pt spoke to odette as well as dr hay. ok to treat today
[2024-04-16] MEDS: CONTAINER EMPTY IV (12:58)
[2024-04-16] MEDS: CETUXIMAB IV (12:58)
--- NOTE | 2024-04-16 15:13 | MHC.HEMONCSW ---
This communications writer met with patient during treatment appointment for assessment and to discuss patient concerns re: anxiety. Patient described symptoms of panic attacks and reports having them a few times per week since beginning cancer treatment. Patient completed PHQ-9 and GA scale with this communications writer. Scores for depression ranked low, and scores for anxiety ranked moderate-high. Discussed coping skills with patient and offered a referral for counseling and possible medication. Patient reported they were interested in a referral - sent to [facility]. Patient also completed distress thermometer. Patient's affect was full, with sad mood and tearfulness. Cognition intact and linear thinking.
--- NOTE | 2024-04-22 10:01 | MHC.HEMONC ---
Pt , Selena called very upset. Milind is escalating with anxiety and panic. She has not heard from [facility] regarding referral that [facility] sent last week. I attempted to call them but was unable to reach a live person. I was able to reach out to [facility] on [address] [place] [address] in [place] at [phone]. They cover pt with [facility] who are in crisis. They have a walk-in clinic and will be seen by a clinician. I gave Selena the information and she said she will bring Milind there. I asked her to call me back with an update. Dr Mckee advised.
--- NOTE | 2024-04-25 17:01 | MHC.HEMONC ---
Nurse took t/c from pt's , Selena, requesting new scrip for Fentanyl 75 mcg/hr patches. Nurse asked covering provider, Dr. Friend to send scrip to pt's [facility] , pharmacist confirmed it is in progress, will be ready for greens picker soon. Nurse left for pt's , that scrip went through.
[2024-04-30 10:51] VITALS: BMI 17.2
[2024-04-30 10:52] VITALS: BP 107/55; PULSE 68; RESP 16; TEMP 35.8; O2SAT 97
[2024-04-30 11:26] LABS: Basophils Percent Auto 0.3 % (0-2); Eosinophils Absolute Auto 0.2 X10*3/uL (0.0-0.4); Eosinophils Percent Auto 4.1 % (0-4); Hematocrit 31.6 % (42.0-52.0); Hemoglobin 10.6 g/dl (14.0-18.0); Imm Gran Abs Auto 0.01 X10*3/uL (0.00-0.03); Imm Gran Pct Auto 0.3 % (0.0-0.4); Lymphocytes Absolute Auto 0.5 X10*3/uL (1.2-4.9); MANUAL DIFF FLAG SCAN; Mean Corpuscular HGB Conc 33.5 g/dl (31.0-36.0); Mean Corpuscular Hemoglobin 35.5 pg (27.0-33.0); Mean Corpuscular Volume 105.7 fL (80.0-98.0); Monocytes Absolute Auto 0.3 X10*3/uL (0.1-1.2); Monocytes Percent Auto 7.8 % (2-11); Neutrophils Absolute Auto 2.9 x10*3/uL (2.0-8.3); Neutrophils Percent Auto 74.5 % (45-73); PLT CLUMP 1; Red Blood Count 2.99 X10*6/uL (4.60-5.80); Red Cell Distribution Width 15.2 % (11.0-16.0); SCAN SMEAR FLAG 1
[2024-04-30 11:37] LABS: Alanine Aminotransferase 45 U/L (0-40); Alkaline Phosphatase 129 U/L (39-117); Anion Gap 6 (12-20); Aspartate Amino Transferase 57 U/L (5-37); Bilirubin Total 1.6 mg/dL (0.0-1.0); Blood Urea Nitrogen 13 mg/dL (9-16); Calcium 8.7 mg/dL (8.4-10.2); Carbon Dioxide 25 mmol/L (22-29); Chloride 108 mmol/L (96-108); Creatinine Clr Calc Pharmacy 83.3; Estimated Glomerular Filt Rate > 60; Glucose Random 136 mg/dL (60-115); Magnesium 1.6 mg/dL (1.6-2.6); Potassium 4.5 mmol/L (3.3-5.1); Sodium 134 mmol/L (135-145)
[2024-04-30 11:56] LABS: Mean Platelet Volume 13.3 fL (9.4-12.4); Platelet Count 51 X10*3/uL (160-400); White Blood Count 3.9 X10*3/uL (4.8-10.8)
[2024-04-30 11:57] LABS: SLIDE REVIEW VERIFIED
[2024-04-30] MEDS: diphenhydrAMINE HCL 25 MG CAPSULE PO (12:06)
[2024-04-30] MEDS: Heparin Sodium,Porcine Flush 500 UNIT/5 ML SYRINGE IVFLUSH (12:07)
[2024-04-30] MEDS: Acetaminophen 325 MG TABLET 650 MG PO (12:07)
[2024-04-30] MEDS: Ondansetron ODT 8 MG TAB.RAPDIS TRANSLINGU (12:07)
[2024-04-30] MEDS: CONTAINER EMPTY IV (13:23)
[2024-04-30] MEDS: CETUXIMAB IV (13:23)
[2024-05-14 11:05] VITALS: BP 105/55; PULSE 112; RESP 18; TEMP 36.2; O2SAT 94; BMI 16.7
[2024-05-14] MEDS: Acetaminophen 325 MG TABLET 650 MG PO (12:01)
[2024-05-14] MEDS: Ondansetron ODT 8 MG TAB.RAPDIS TRANSLINGU (12:01)
[2024-05-14] MEDS: diphenhydrAMINE HCL 25 MG CAPSULE PO (12:01)
[2024-05-14] MEDS: Heparin Sodium,Porcine Flush 500 UNIT/5 ML SYRINGE IVFLUSH (12:02)
[2024-05-14] MEDS: CETUXIMAB IV (13:11)
[2024-05-14] MEDS: CONTAINER EMPTY IV (13:11)
--- NOTE | 2024-05-14 16:13 | MHC.HEMONC ---
Here for C5 Cetuximab. Pt reports that last night he was in the ED for abd pain and diarrhea. He recently received his flu and covid vaccines, and he was told at his ED visit that the vaccines may have caused his symptoms. His symptoms have resolved. Dr Mckee is aware that he was in ED, and has reviewed his labs. OK for treatment today. Port accessed with good blood return noted. Premeds given as ordered. Treatment done and tolerated well. Port flushed with heparin and de-accessed. Pt departed ambulatory with steady gait. Declined wheelchair. Aware of next appointment in 2 weeks.
[2024-05-28 11:27] VITALS: BP 88/50; PULSE 96; RESP 20; TEMP 36.7; O2SAT 97; BMI 16.4
[2024-05-28 11:37] LABS: Basophils Percent Auto 0.5 % (0-2); Eosinophils Absolute Auto 0.2 X10*3/uL (0.0-0.4); Eosinophils Percent Auto 3.6 % (0-4); Hematocrit 31.9 % (42.0-52.0); Hemoglobin 10.5 g/dl (14.0-18.0); Imm Gran Abs Auto 0.03 X10*3/uL (0.00-0.03); Imm Gran Pct Auto 0.7 % (0.0-0.4); Lymphocytes Absolute Auto 0.7 X10*3/uL (1.2-4.9); Lymphocytes Percent Auto 16.2 % (20-40); Mean Corpuscular HGB Conc 32.9 g/dl (31.0-36.0); Mean Corpuscular Hemoglobin 34.5 pg (27.0-33.0); Mean Corpuscular Volume 104.9 fL (80.0-98.0); Mean Platelet Volume 13.1 fL (9.4-12.4); Monocytes Absolute Auto 0.4 X10*3/uL (0.1-1.2); Monocytes Percent Auto 10.5 % (2-11); Neutrophils Absolute Auto 2.9 x10*3/uL (2.0-8.3); Neutrophils Percent Auto 68.5 % (45-73); Red Blood Count 3.04 X10*6/uL (4.60-5.80); Red Cell Distribution Width 14.4 % (11.0-16.0)
[2024-05-28 11:38] LABS: Platelet Count 98 X10*3/uL (160-400); White Blood Count 4.2 X10*3/uL (4.8-10.8)
[2024-05-28 12:06] LABS: Alanine Aminotransferase 57 U/L (0-40); Alkaline Phosphatase 284 U/L (39-117); Anion Gap 9 (12-20); Aspartate Amino Transferase 69 U/L (5-37); Bilirubin Total 1.9 mg/dL (0.0-1.0); Blood Urea Nitrogen 11 mg/dL (9-16); Carbon Dioxide 22 mmol/L (22-29); Chloride 108 mmol/L (96-108); Creatinine Clr Calc Pharmacy 82.8; Estimated Glomerular Filt Rate > 60; Glucose Random 94 mg/dL (60-115); Magnesium 1.4 mg/dL (1.6-2.6); Potassium 4.4 mmol/L (3.3-5.1); Sodium 135 mmol/L (135-145); Total Protein 7.6 g/dL (6.5-8.0)
[2024-05-28] MEDS: Magnesium Sulfate/H2O 2 GM/50 ML PIGGYBACK IV (12:12)
--- NOTE | 2024-05-28 12:43 | MHC.HEMONC ---
2mg iv mag given for mag1.4
[2024-05-28] MEDS: diphenhydrAMINE HCL 25 MG CAPSULE PO (13:50)
[2024-05-28] MEDS: Heparin Sodium,Porcine Flush 500 UNIT/5 ML SYRINGE IVFLUSH (13:50)
[2024-05-28] MEDS: Acetaminophen 325 MG TABLET 650 MG PO (13:50)
[2024-05-28] MEDS: Ondansetron ODT 8 MG TAB.RAPDIS TRANSLINGU (13:50)
[2024-05-28] MEDS: CONTAINER EMPTY IV (14:25)
[2024-05-28] MEDS: CETUXIMAB IV (14:25)
[2024-06-11 10:53] VITALS: BP 114/59; PULSE 79; RESP 18; TEMP 36.6; O2SAT 95; BMI 16.4
[2024-06-11 11:31] LABS: Basophils Percent Auto 0.3 % (0-2); Eosinophils Absolute Auto 0.2 X10*3/uL (0.0-0.4); Eosinophils Percent Auto 5.4 % (0-4); Hemoglobin 9.9 g/dl (14.0-18.0); Imm Gran Abs Auto 0.01 X10*3/uL (0.00-0.03); Imm Gran Pct Auto 0.3 % (0.0-0.4); Lymphocytes Absolute Auto 0.5 X10*3/uL (1.2-4.9); Lymphocytes Percent Auto 14.3 % (20-40); MANUAL DIFF FLAG SCAN; Mean Corpuscular Hemoglobin 35.2 pg (27.0-33.0); Mean Corpuscular Volume 106.8 fL (80.0-98.0); Monocytes Absolute Auto 0.3 X10*3/uL (0.1-1.2); Neutrophils Absolute Auto 2.4 x10*3/uL (2.0-8.3); Neutrophils Percent Auto 70.7 % (45-73); PLT CLUMP 1; Red Blood Count 2.81 X10*6/uL (4.60-5.80); Red Cell Distribution Width 14.9 % (11.0-16.0); SCAN SMEAR FLAG 1
[2024-06-11 11:33] LABS: White Blood Count 3.4 X10*3/uL (4.8-10.8)
[2024-06-11 11:39] LABS: Alanine Aminotransferase 33 U/L (0-40); Albumin Level 2.9 g/dL (3.5-5.0); Alkaline Phosphatase 181 U/L (39-117); Anion Gap 8 (12-20); Aspartate Amino Transferase 56 U/L (5-37); Bilirubin Total 1.4 mg/dL (0.0-1.0); Blood Urea Nitrogen 14 mg/dL (9-16); Carbon Dioxide 19 mmol/L (22-29); Chloride 113 mmol/L (96-108); Estimated Glomerular Filt Rate > 60; Glucose Random 129 mg/dL (60-115); Sodium 135 mmol/L (135-145); Total Protein 7.4 g/dL (6.5-8.0)
[2024-06-11 11:41] LABS: Magnesium 1.3 mg/dL (1.6-2.6)
[2024-06-11] MEDS: Magnesium Sulfate/H2O 2 GM/50 ML PIGGYBACK IV (11:57)
[2024-06-11 12:08] LABS: Mean Platelet Volume 13.3 fL (9.4-12.4); Platelet Count 68 X10*3/uL (160-400)
[2024-06-11 12:09] LABS: SLIDE REVIEW VERIFIED
[2024-06-11] MEDS: Ondansetron ODT 8 MG TAB.RAPDIS TRANSLINGU (13:39)
[2024-06-11] MEDS: Heparin Sodium,Porcine Flush 500 UNIT/5 ML SYRINGE IVFLUSH (13:39)
[2024-06-11] MEDS: Acetaminophen 325 MG TABLET 650 MG PO (13:39)
[2024-06-11] MEDS: diphenhydrAMINE HCL 25 MG CAPSULE PO (13:39)
[2024-06-11] MEDS: CONTAINER EMPTY IV (14:26)
[2024-06-11] MEDS: CETUXIMAB IV (14:26)
--- NOTE | 2024-06-19 16:19 | MHC.HEMONC ---
Nurse took t/c from pt's , Selena, requesting new scrip for Fentanyl 75 mcg/hr patches. Nurse asked covering provider, Dr. Friend to send scrip to pt's [facility]
[2024-06-25 11:03] VITALS: BP 103/57; PULSE 79; RESP 18; TEMP 36.2; O2SAT 97; BMI 16.7
[2024-06-25 11:27] LABS: Basophils Percent Auto 0.4 % (0-2); Eosinophils Absolute Auto 0.2 X10*3/uL (0.0-0.4); Eosinophils Percent Auto 4.9 % (0-4); Hematocrit 28.5 % (42.0-52.0); Hemoglobin 9.5 g/dl (14.0-18.0); Imm Gran Abs Auto 0.02 X10*3/uL (0.00-0.03); Imm Gran Pct Auto 0.4 % (0.0-0.4); Lymphocytes Absolute Auto 0.5 X10*3/uL (1.2-4.9); Mean Corpuscular HGB Conc 33.3 g/dl (31.0-36.0); Mean Corpuscular Hemoglobin 35.4 pg (27.0-33.0); Mean Corpuscular Volume 106.3 fL (80.0-98.0); Monocytes Absolute Auto 0.3 X10*3/uL (0.1-1.2); Monocytes Percent Auto 7.6 % (2-11); Neutrophils Absolute Auto 3.4 x10*3/uL (2.0-8.3); Neutrophils Percent Auto 75.7 % (45-73); Red Blood Count 2.68 X10*6/uL (4.60-5.80)
[2024-06-25 11:30] LABS: Platelet Count 58 X10*3/uL (160-400); White Blood Count 4.5 X10*3/uL (4.8-10.8)
[2024-06-25 11:48] LABS: Alanine Aminotransferase 31 U/L (0-40); Albumin Level 2.8 g/dL (3.5-5.0); Alkaline Phosphatase 147 U/L (39-117); Anion Gap 7 (12-20); Aspartate Amino Transferase 59 U/L (5-37); Bilirubin Total 1.4 mg/dL (0.0-1.0); Blood Urea Nitrogen 11 mg/dL (9-16); Calcium 9.4 mg/dL (8.4-10.2); Carbon Dioxide 17 mmol/L (22-29); Chloride 113 mmol/L (96-108); Creatinine Clr Calc Pharmacy 84.7; Estimated Glomerular Filt Rate > 60; Glucose Random 110 mg/dL (60-115); Potassium 4.6 mmol/L (3.3-5.1); Sodium 132 mmol/L (135-145)
[2024-06-25 11:50] LABS: Magnesium 1.1 mg/dL (1.6-2.6)
[2024-06-25] MEDS: Magnesium Sulfate/H2O 2 GM/50 ML PIGGYBACK IV (12:01)
--- NOTE | 2024-06-25 13:25 | MHC.HEMONC ---
Addendum entered by Susan Olmedo RN 06/25/24 16:32: Pre meds given as ordered. Treatment done and tolerated well. Port flushed with heparin and de-accessed. Departure packet given and pt aware of next appointment. Original Note: Here for C8 D1 Cetuximab. States feeling well. Port accessed with good blood return noted. Labs obtained. Magnesium 1.1. Dr Mckee aware. Pt receiving Magnesium 2gm IV.
[2024-06-25] MEDS: diphenhydrAMINE HCL 25 MG CAPSULE PO (14:07)
[2024-06-25] MEDS: Acetaminophen 325 MG TABLET 650 MG PO (14:07)
[2024-06-25] MEDS: Ondansetron ODT 8 MG TAB.RAPDIS TRANSLINGU (14:08)
[2024-06-25] MEDS: Heparin Sodium,Porcine Flush 500 UNIT/5 ML SYRINGE IVFLUSH (14:08)
[2024-06-25] MEDS: CETUXIMAB IV (14:17)
[2024-06-25] MEDS: CONTAINER EMPTY IV (14:17)
--- NOTE | 2024-07-03 09:39 | MHC.HEMONC ---
Addendum entered by India Sevilla RN 07/03/24 10:46: Prescription ordered. Patient notified. Original Note: Triage call: Refill request for Oxycodone. Given to Dr. Friend (covering for Dr. Mckee)
[2024-07-09 08:58] VITALS: BP 105/56; PULSE 76; RESP 18; TEMP 36.4; O2SAT 93; BMI 16.4
--- NOTE | 2024-07-09 09:11 | PM.HEMONCPN ---
Medical Summary - Medical Summary Date of Service: 07/09/24 Chief complaint: Follow-up and scheduled treatment Primary Care Provider: Jono Headley MD Medical Summary: Metastatic colon cancer diagnosed in October 2018. Presented with abdominal pain, 30 pound weight loss and severe pain. He had abnormal colonoscopy in 2009. He was told he needed a repeat colonoscopy in 5 years but he did not go for testing. CT abdomen/pelvis with IV contrast shows multiple areas of wall thickening in the sigmoid colon as well as thickening and enhancement of cecum, terminal ileum. Long segment of wall thickening of the distal transverse colon and left colon. Enlarged mesenteric and retroperitoneal lymph nodes, multiple liver metastasis and lung metastasis, all of these worrisome for metastatic colorectal malignancy. 11/01/18-Core biopsy of the right liver mass, moderately differentiated adenocarcinoma consistent with colorectal primary. KRAS mutation not detected BRAF mutation not detected. NRAS negative, MSI proficient or MSI stable. He developed bowel obstruction, palliative bypass ileostomy has been performed in November 2018. He started on mFOLFOX/Avastin regimen from 11/27/2018. His last treatment cycle 13 was on 05/14/2019. 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 Repeat CT abdomen/pelvis on 09/18/2019 showed further decrease in size of liver metastasis. He was on maintenance Xeloda 1500 mg p.o. b.i.d. 2 weeks on/1 week off, along with bevacizumab Q 3 weeks starting 10/22/2019 until 12/13/2020. Rising CEA as well as imaging in November 2020 showed evidence of progressive disease. He started irinotecan with bevacizumab from December 2020. CT chest/ abdomen and pelvis in July 2022 showed progression in lung nodules. CEA penelope to 18.8 NG/mL. Treatment was changed to FOLFIRI Avastin. CT chest 2022 disease progression with increase in size of bilateral pulmonary nodules. CEA level now above 50. PET-CT performed 08/14/2023 showed left upper lobe lung nodule measuring 2.2 cm with SUV 6.8, multiple lesions throughout both lobes of liver largest measuring 5.3 x 2.7 cm with SUV is 5.3. Because of disease progression, he has been switched to Lonsurf (trifluridine and tipiracil) with Avastin in the 3rd line setting from 09/03/2023. Because of rising tumor marker, he had a PET-CT in 04/01/2024 which unfortunately revealed increase in size and number of multiple liver lesions, largest in the right hepatic lobe with SUV max of 10.1, FDG avid internal iliac and external iliac lymph nodes, multiple FDG avid pulmonary nodules increased in number, increasing thoracic lymphadenopathy and right-sided pleural nodularity suspicious for metastatic disease. FDG avid left-sided pelvic lymphadenopathy suspicious for metastatic disease. Interval History Interval history: Patient is here in follow-up and scheduled treatment treatment. He has been receiving cetuximab which he is tolerating well without any rash or diarrhea. His magnesium levels have been low and he receives both oral and IV supplementation. He has been started on new psychiatric medications and says overall he is feeling better. He is less anxious. His pain is well controlled. He says he is trying to eat and gained weight. No acute complaints such as chest pain, shortness of breath, fever, chills or diarrhea. Review of Systems - Constitutional Reports as per HPI - Neurologic Denies vertigo, Denies dizziness PMFSH Medical History: Medical History (Last Reviewed 05/14/24 @ 00:11 by Andre Lyons MD) Chronic respiratory failure Colon cancer metastasized to liver Colon cancer metastasized to liver Colon cancer metastasized to liver Encounter for ostomy care education Hyponatremia ILD (interstitial lung disease) Multifocal pneumonia Pulmonary fibrosis Pulmonary nodule Tubular adenoma Family History: Family History (Last Reviewed 05/14/24 @ 00:11 by Andre Lyons MD) Son Cystic fibrosis Brother Esophageal cancer Maternal Aunt Lung cancer Surgical History: Surgical History (Last Reviewed 05/14/24 @ 00:11 by Andre Lyons MD) H/O knee surgery Social History: Social History (Last Reviewed 05/14/24 @ 00:11 by Andre Lyons MD) Living Situation History: Household Members: Spouse Housing: House Do you presently have visiting nurse or other home services: Yes Tobacco History: Patient Tobacco Use Status: Former Tobacco user Tobacco use type: Cigarette e-Cigarette/Vaping Use: Former Use Second Hand Smoke Exposure: No Substance Use History: Use of substances other than those prescribed or required for medical reasons: No Substance Use Type: Marijuana Advance Directives: Advance Directives: Yes Advance Directives Information Provided: No Advance Directives on File: Yes Advance Directives Date on File: 12/12/22 Nutrition Assessment: Recently lost weight without trying: No Occupation Assessmet: service: No Current occupational status: employed 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 Home Medications and Allergies Current Medications: Current Medications Acetaminophen (Acetaminophen 325 Mg Tablet) 650 mg PO ONCE PINEDA Stop: 07/09/24 23:59 Diphenhydramine HCl (Diphenhydramine Hcl 25 Mg Capsule) 25 mg PO ONCE PINEDA Stop: 07/09/24 23:59 Heparin Sodium (Porcine) (Heparin Sodium,Porcine Flush 500 Unit/5 Ml Syringe) 500 unit IVFLUSH ONCE PINEDA Stop: 07/09/24 23:59 Ondansetron HCl (Ondansetron Odt 8 Mg Tab.Rapdis) 8 mg TRANSLINGU ONCE PINEDA Stop: 07/09/24 23:59 Home Medications ?Medication ?Instructions ?Recorded ?Confirmed ?Type acetaminophen 650 mg 650 mg PO Q6H PRN Pain 08/04/22 04/10/24 History tablet,extended release loperamide 2 mg tablet (Imodium 4 mg PO DAILY PRN Loose Stool 04/10/24 06/11/24 History A-D) clonazepam 0.5 mg disintegrating 0.5 mg PO DAILY 06/11/24 06/11/24 History tablet magnesium oxide 800 mg PO DAILY 06/25/24 06/25/24 History Allergies Allergy/AdvReac Type Severity Reaction Status Date / Time prednisone [PREDNISONE] AdvReac Intermediate Psychosis Verified 05/13/24 22:12 Exam Vital signs: Vital Signs Temp 97.6 F 07/09/24 08:58 Pulse 76 07/09/24 08:58 Resp 18 07/09/24 08:58 BP 105/56 L 07/09/24 08:58 Pulse Ox 93 07/09/24 08:58 O2 Del Method Room Air 07/09/24 08:58 Intake & Output 07/08/24 07/09/24 07/09/24 18:59 06:59 18:59 Other: Weight 53.4 kg Weight in Grams 71780 Weight 53.4 kg BMI result Body Mass Index 16.4 - Constitutional Present: no acute distress, cachectic, chronically ill appearing - Routine HEENT Exam Head: Present: normal inspection Eye: Present: EOMI, conjunctivae pale - Routine Neck Exam Present: full ROM. Absent: lymphadenopathy - Routine Respiratory Exam Present: CTAB - Routine Cardiovascular Exam Cardiovascular: Present: RRR, S1, S2 - Routine Abdominal Exam Present: normal bowel sounds, soft. Absent: mass, organomegaly - Routine Extremities Exam Present: full ROM. Absent: calf tenderness, pedal edema - Routine Skin Exam Present: intact. Absent: cyanosis, erythema - Routine Neurological Exam Present: alert, oriented X3 Data - Labs CBC & Chem 7: 07/09/24 09:15 07/09/24 09:15 Assessment and Plan Patient Active problem list reviewed?: Yes (1) Colon cancer metastasized to liver Status: Inactive Assessment and plan: 1. This is a 64-year-old gentleman, with metastatic colon carcinoma, ? cecal/rt colon primary with liver and lung metastases. Biopsy of the liver lesion, Moderately differentiated adenocarcinoma. KRAS and BRAF negative. NRAS negative, MSI proficient or MSI stable. HER2 and panTRK negative. Initial CEA elevated at 91. He developed bowel obstruction, palliative bypass ileostomy has been performed in November 2018. He started on mFOLFOX/Avastin regimen from 11/27/2018. His last treatment cycle 13 was on 05/14/2019. He was on maintenance Xeloda 1500 mg p.o. b.i.d. 2 weeks on/1 week off, along with bevacizumab Q 3 weeks starting 10/22/2019 until 12/13/2020. Rising CEA as well as imaging in November 2020 showed evidence of progressive disease. He started irinotecan with bevacizumab from December 2020 until 07/2022. CT chest/ abdomen and pelvis in July 2022 showed progression in lung nodules. CEA penelope to 18.8 NG/mL. Treatment was changed to FOLFIRI Avastin. He was switched to Lonsurf (trifluridine and tipiracil) with Avastin in the 3rd line setting from 09/03/2023. Dose of Lonsurf is 60 mg b.i.d. day 1-5 and day 8-12 Q 28 day cycle. Because of severe myelosuppression, dose of Lonsurf was decreased to 40 mg b.i.d.. PET scan in 04/01/2024 showed disease progression. He was switched to cetuximab in 04/01/2024 in the 4th line setting. I reviewed recent labs, CEA now is over 150. We discussed supportive/hospice care versus ongoing treatment. He says other than anxiety symptoms he has no physical complaints and would like to continue to receive palliative treatment. I will switch him to Fruquintinib 5 mg p.o. day 1-20 1q28 day cycle in the 5th line setting. 2. 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 He has been tapered off prednisone and CellCept. He is also off the oxygen. 3. Chronic arthralgias. MS Contin was discontinued as it was not getting absorbed and coming out through his ostomy. He is now on fentanyl 50 mcg q.72 hours. Is not holding him for the 3 days, dose will be increased to 75 mcg q.72 hours. He is on oxycodone 5 mg for breakthrough pain 2 to 3 times a day. Because of increasing pain, increasing dose of fentanyl to 75 mcg q.72 hours. 4. Intermittent elevation of bilirubin, indirect bilirubinemia, probable Gilbert's syndrome. 5. Acute renal failure with hyperkalemia. He was admitted to the hospital 2022, nephrology consult was obtained. Imaging did not reveal hydronephrosis or obstructive uropathy. His acute kidney injury was related to prerenal azotemia secondary to poor intake and pneumonia. He was treated with IV hydration and antibiotics for pneumonia. He is feeling better now. His kidney functions have normalized. 6. Pancytopenia secondary to ongoing chemotherapy. 7. Hyponatremia, probably related to malignancy. SIADH is possible. I have advised him to increase salt intake. 8. Anorexia/weight loss secondary to ongoing treatment as well as progressive cancer. 9. Acute mental status change/panic attack. Patient was evaluated in the ED on 04/08/2024. Blood work and imaging was unrevealing. Patient says he has had such panic attacks before. He has met up with counselor, he is on medication and is doing well. Labs are stable, administer IV magnesium and proceed with treatment today. This will be last dose of cetuximab. Follow-up in 1 month. - Time Spent With Patient Time Spent with Patient (in minutes): 25 Additional Coding: - Additional E/M codes Complex E/M visit Add On: CPT G2211
[2024-07-09 09:22] LABS: MANUAL DIFF FLAG NO
[2024-07-09 09:23] LABS: Basophils Percent Auto 0.3 % (0-2); Eosinophils Absolute Auto 0.4 X10*3/uL (0.0-0.4); Eosinophils Percent Auto 6.8 % (0-4); Hematocrit 28.2 % (42.0-52.0); Hemoglobin 9.5 g/dl (14.0-18.0); Imm Gran Abs Auto 0.02 X10*3/uL (0.00-0.03); Imm Gran Pct Auto 0.3 % (0.0-0.4); Lymphocytes Absolute Auto 0.6 X10*3/uL (1.2-4.9); Lymphocytes Percent Auto 10.5 % (20-40); Mean Corpuscular HGB Conc 33.7 g/dl (31.0-36.0); Mean Corpuscular Hemoglobin 35.7 pg (27.0-33.0); Mean Platelet Volume 12.2 fL (9.4-12.4); Monocytes Absolute Auto 0.6 X10*3/uL (0.1-1.2); Monocytes Percent Auto 9.8 % (2-11); Neutrophils Absolute Auto 4.1 x10*3/uL (2.0-8.3); Neutrophils Percent Auto 72.3 % (45-73); Platelet Count 88 X10*3/uL (160-400); Red Blood Count 2.66 X10*6/uL (4.60-5.80); Red Cell Distribution Width 14.9 % (11.0-16.0); White Blood Count 5.7 X10*3/uL (4.8-10.8)
[2024-07-09 09:42] LABS: Alanine Aminotransferase 42 U/L (0-40); Albumin Level 2.8 g/dL (3.5-5.0); Alkaline Phosphatase 162 U/L (39-117); Anion Gap 11 (12-20); Aspartate Amino Transferase 71 U/L (5-37); Bilirubin Total 2.2 mg/dL (0.0-1.0); Blood Urea Nitrogen 16 mg/dL (9-16); Calcium 8.8 mg/dL (8.4-10.2); Carbon Dioxide 17 mmol/L (22-29); Chloride 110 mmol/L (96-108); Creatinine Clr Calc Pharmacy 74.1; Estimated Glomerular Filt Rate > 60; Glucose Random 93 mg/dL (60-115); Magnesium 1.4 mg/dL (1.6-2.6); Potassium 5.1 mmol/L (3.3-5.1); Sodium 133 mmol/L (135-145); Total Protein 7.1 g/dL (6.5-8.0)
[2024-07-09] MEDS: Magnesium Sulfate/H2O 2 GM/50 ML PIGGYBACK IV (09:54)
[2024-07-09] MEDS: Ondansetron ODT 8 MG TAB.RAPDIS TRANSLINGU (12:05)
[2024-07-09] MEDS: diphenhydrAMINE HCL 25 MG CAPSULE PO (12:05)
[2024-07-09] MEDS: Acetaminophen 325 MG TABLET 650 MG PO (12:05)
[2024-07-09] MEDS: Heparin Sodium,Porcine Flush 500 UNIT/5 ML SYRINGE IVFLUSH (12:07)
[2024-07-09] MEDS: CETUXIMAB IV (12:15)
[2024-07-09] MEDS: CONTAINER EMPTY IV (12:15)
--- NOTE | 2024-07-09 15:27 | MHC.HEMONC ---
Here for C9 Cetuximab. States he is feeling well. Port accessed with good blood return noted. Labs obtained. Magnesium 1.[address] Mckee aware. Dr Mckee in to see pt for follow up. Decision made to stop Cetuximab after today and pt will be switched to oral chemo. Pt is agreeable. IV magnesium 2gm given over 2 hrs as ordered. Premeds given as ordered. Treatment done and tolerated well. Port flushed with heparin and de-accessed. Calendar given with next appointment for labs in 1 week. Departed unit ambulatory with steady gait.
--- NOTE | 2024-07-15 14:24 | MHC.HEMONC ---
Pt to get his new chemo pills tomorrow 07/16/24.
[2024-07-16 11:21] LABS: MANUAL DIFF FLAG NO
[2024-07-16 11:23] LABS: Basophils Percent Auto 0.4 % (0-2); Eosinophils Absolute Auto 0.3 X10*3/uL (0.0-0.4); Eosinophils Percent Auto 5.5 % (0-4); Hematocrit 28.8 % (42.0-52.0); Hemoglobin 9.2 g/dl (14.0-18.0); Imm Gran Abs Auto 0.02 X10*3/uL (0.00-0.03); Imm Gran Pct Auto 0.4 % (0.0-0.4); Lymphocytes Absolute Auto 0.6 X10*3/uL (1.2-4.9); Lymphocytes Percent Auto 11.3 % (20-40); Mean Corpuscular HGB Conc 31.9 g/dl (31.0-36.0); Mean Corpuscular Hemoglobin 34.3 pg (27.0-33.0); Mean Corpuscular Volume 107.5 fL (80.0-98.0); Mean Platelet Volume 11.8 fL (9.4-12.4); Monocytes Absolute Auto 0.5 X10*3/uL (0.1-1.2); Monocytes Percent Auto 10.3 % (2-11); Neutrophils Absolute Auto 3.6 x10*3/uL (2.0-8.3); Neutrophils Percent Auto 72.1 % (45-73); Red Blood Count 2.68 X10*6/uL (4.60-5.80); Red Cell Distribution Width 14.7 % (11.0-16.0); White Blood Count 5.1 X10*3/uL (4.8-10.8)
[2024-07-16 11:27] LABS: Platelet Count 95 X10*3/uL (160-400)
[2024-07-16 11:45] LABS: Alanine Aminotransferase 47 U/L (0-40); Albumin Level 2.9 g/dL (3.5-5.0); Alkaline Phosphatase 170 U/L (39-117); Anion Gap 7 (12-20); Aspartate Amino Transferase 72 U/L (5-37); Bilirubin Total 1.8 mg/dL (0.0-1.0); Blood Urea Nitrogen 15 mg/dL (9-16); Calcium 8.6 mg/dL (8.4-10.2); Carbon Dioxide 20 mmol/L (22-29); Chloride 113 mmol/L (96-108); Creatinine Clr Calc Pharmacy 76.2; Estimated Glomerular Filt Rate > 60; Glucose Random 126 mg/dL (60-115); Magnesium 1.3 mg/dL (1.6-2.6); Potassium 5.1 mmol/L (3.3-5.1); Sodium 135 mmol/L (135-145); Total Protein 7.4 g/dL (6.5-8.0)
--- NOTE | 2024-07-16 12:55 | MHC.HEMONC ---
mag 1.[address] hay r/t last chemo pt will increase po mag to 4 magnesium pill daily for 7 days then go back to 2 daily. repeat labs and follow up in 10 days
--- NOTE | 2024-07-16 16:35 | MHC.HEMONC ---
Pt to start new chemo pill in AM. Pt given information and reviewed side effects with pt and his . They both state understanding. Will return in 10 days for labs and follow up, and will call with any questions/problems.
[2024-07-29 10:53] VITALS: BP 119/79; PULSE 113; TEMP 35.9; O2SAT 92; BMI 15.1
[2024-07-29] MEDS: Morphine Sulfate 2 MG/ML CARTRIDGE IVPUSH (11:34)
[2024-07-29] MEDS: 0.9 % Sodium Chloride 1,000 ML 500 ML IV (11:38)
--- NOTE | 2024-07-29 11:41 | MHC.HEMONC ---
Port accessed with good blood return. 1 L NS given over 2 hours. IV morphine given with good effect. Dr Mckee to arrange hospice.
--- NOTE | 2024-07-29 12:11 | PM.HEMONCPN ---
Medical Summary - Medical Summary Date of Service: 07/29/24 Chief complaint: Not feeling well Primary Care Provider: Jono Headley MD Medical Summary: Metastatic colon cancer diagnosed in October 2018. Presented with abdominal pain, 30 pound weight loss and severe pain. He had abnormal colonoscopy in 2009. He was told he needed a repeat colonoscopy in 5 years but he did not go for testing. CT abdomen/pelvis with IV contrast shows multiple areas of wall thickening in the sigmoid colon as well as thickening and enhancement of cecum, terminal ileum. Long segment of wall thickening of the distal transverse colon and left colon. Enlarged mesenteric and retroperitoneal lymph nodes, multiple liver metastasis and lung metastasis, all of these worrisome for metastatic colorectal malignancy. 11/01/18-Core biopsy of the right liver mass, moderately differentiated adenocarcinoma consistent with colorectal primary. KRAS mutation not detected BRAF mutation not detected. NRAS negative, MSI proficient or MSI stable. He developed bowel obstruction, palliative bypass ileostomy has been performed in November 2018. He started on mFOLFOX/Avastin regimen from 11/27/2018. His last treatment cycle 13 was on 05/14/2019. 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 Repeat CT abdomen/pelvis on 09/18/2019 showed further decrease in size of liver metastasis. He was on maintenance Xeloda 1500 mg p.o. b.i.d. 2 weeks on/1 week off, along with bevacizumab Q 3 weeks starting 10/22/2019 until 12/13/2020. Rising CEA as well as imaging in November 2020 showed evidence of progressive disease. He started irinotecan with bevacizumab from December 2020. CT chest/ abdomen and pelvis in July 2022 showed progression in lung nodules. CEA penelope to 18.8 NG/mL. Treatment was changed to FOLFIRI Avastin. CT chest 2022 disease progression with increase in size of bilateral pulmonary nodules. CEA level now above 50. PET-CT performed 08/14/2023 showed left upper lobe lung nodule measuring 2.2 cm with SUV 6.8, multiple lesions throughout both lobes of liver largest measuring 5.3 x 2.7 cm with SUV is 5.3. Because of disease progression, he has been switched to Lonsurf (trifluridine and tipiracil) with Avastin in the 3rd line setting from 09/03/2023. Because of rising tumor marker, he had a PET-CT in 04/01/2024 which unfortunately revealed increase in size and number of multiple liver lesions, largest in the right hepatic lobe with SUV max of 10.1, FDG avid internal iliac and external iliac lymph nodes, multiple FDG avid pulmonary nodules increased in number, increasing thoracic lymphadenopathy and right-sided pleural nodularity suspicious for metastatic disease. FDG avid left-sided pelvic lymphadenopathy suspicious for metastatic disease. Interval History Interval history: Patient was seen today urgently because his Selena called saying that patient was feeling extremely anxious, tired and complaining of pain. He has not been eating or drinking for several days. She wants to know if hydration is possible. There also here to talk about hospice care, they are willing to transition to hospice care at this time. Review of Systems - Constitutional Reports as per HPI, Reports lack of energy, Reports malaise, Reports poor appetite, Reports weakness, Reports weight loss - Neurologic Denies vertigo, Denies dizziness PMFSH Medical History: Medical History (Last Reviewed 07/29/24 @ 10:52 by Sarthak Caldwell) Chronic respiratory failure Colon cancer metastasized to liver Colon cancer metastasized to liver Colon cancer metastasized to liver Encounter for ostomy care education Hyponatremia ILD (interstitial lung disease) Multifocal pneumonia Pulmonary fibrosis Pulmonary nodule Tubular adenoma Family History: Family History (Last Reviewed 07/29/24 @ 10:53 by Sarthak Caldwell) Son Cystic fibrosis Brother Esophageal cancer Maternal Aunt Lung cancer Surgical History: Surgical History (Last Reviewed 07/29/24 @ 10:52 by Sarthak Caldwell) H/O knee surgery Social History: Social History (Last Reviewed 07/29/24 @ 10:53 by Sarthak Caldwell) Living Situation History: Household Members: Spouse Housing: House Do you presently have visiting nurse or other home services: Yes Tobacco History: Patient Tobacco Use Status: Former Tobacco user Tobacco use type: Cigarette e-Cigarette/Vaping Use: Former Use Second Hand Smoke Exposure: No Substance Use History: Use of substances other than those prescribed or required for medical reasons: No Substance Use Type: Marijuana Advance Directives: Advance Directives: Yes Advance Directives Information Provided: No Advance Directives on File: Yes Advance Directives Date on File: 12/12/22 Nutrition Assessment: Recently lost weight without trying: No Occupation Assessmet: service: No Current occupational status: employed 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 Home Medications and Allergies Current Medications: Current Medications Sodium Chloride (Ns) 1,000 mls @ 500 mls/hr IV .Q2H PINEDA Stop: 07/29/24 13:14 Last Admin: 07/29/24 11:38 Dose: 500 mls/hr Home Medications ?Medication ?Instructions ?Recorded ?Confirmed ?Type acetaminophen 650 mg 650 mg PO Q6H PRN Pain 08/04/22 04/10/24 History tablet,extended release loperamide 2 mg tablet (Imodium 4 mg PO DAILY PRN Loose Stool 04/10/24 06/11/24 History A-D) clonazepam 0.5 mg disintegrating 0.5 mg PO DAILY 06/11/24 06/11/24 History tablet Allergies Allergy/AdvReac Type Severity Reaction Status Date / Time prednisone [PREDNISONE] AdvReac Intermediate Psychosis Verified 05/13/24 22:12 Exam Vital signs: Vital Signs Temp 96.6 F L 07/29/24 10:53 Pulse 113 H 07/29/24 10:53 Resp 18 07/09/24 08:58 BP 119/79 07/29/24 10:53 Pulse Ox 92 07/29/24 10:53 O2 Del Method Room Air 07/29/24 10:53 Intake & Output 07/28/24 07/29/24 07/29/24 18:59 06:59 18:59 Other: Weight 49 kg [place] Weight in Grams 98250 Weight 49 kg BMI result Body Mass Index 15.1 - Constitutional Present: no acute distress, cachectic, chronically ill appearing - Routine HEENT Exam Head: Present: normal inspection Eye: Present: conjunctivae pale - Routine Neck Exam Present: full ROM. Absent: lymphadenopathy - Routine Respiratory Exam Present: CTAB - Routine Cardiovascular Exam Cardiovascular: Present: RRR, S1, S2 - Routine Abdominal Exam Present: normal bowel sounds, soft. Absent: mass, organomegaly - Routine Extremities Exam Present: full ROM. Absent: calf tenderness, pedal edema - Routine Skin Exam Present: intact. Absent: cyanosis, erythema - Routine Neurological Exam Present: alert, oriented X3 Data - Labs CBC & Chem 7: 07/16/24 11:14 07/16/24 11:14 Assessment and Plan Patient Active problem list reviewed?: Yes (1) Colon cancer metastasized to liver Status: Inactive Assessment and plan: 1. This is a 64-year-old gentleman, with metastatic colon carcinoma, ? cecal/rt colon primary with liver and lung metastases. Biopsy of the liver lesion, Moderately differentiated adenocarcinoma. KRAS and BRAF negative. NRAS negative, MSI proficient or MSI stable. HER2 and panTRK negative. Initial CEA elevated at 91. He developed bowel obstruction, palliative bypass ileostomy has been performed in November 2018. He started on mFOLFOX/Avastin regimen from 11/27/2018. His last treatment cycle 13 was on 05/14/2019. He was on maintenance Xeloda 1500 mg p.o. b.i.d. 2 weeks on/1 week off, along with bevacizumab Q 3 weeks starting 10/22/2019 until 12/13/2020. Rising CEA as well as imaging in November 2020 showed evidence of progressive disease. He started irinotecan with bevacizumab from December 2020 until 07/2022. CT chest/ abdomen and pelvis in July 2022 showed progression in lung nodules. CEA penelope to 18.8 NG/mL. Treatment was changed to FOLFIRI Avastin. He was switched to Lonsurf (trifluridine and tipiracil) with Avastin in the 3rd line setting from 09/03/2023. Dose of Lonsurf is 60 mg b.i.d. day 1-5 and day 8-12 Q 28 day cycle. Because of severe myelosuppression, dose of Lonsurf was decreased to 40 mg b.i.d.. PET scan in 04/01/2024 showed disease progression. He was switched to cetuximab in 04/01/2024 in the 4th line setting. I reviewed recent labs, CEA now is over 150. We discussed supportive/hospice care versus ongoing treatment. He says other than anxiety symptoms he has no physical complaints and would like to continue to receive palliative treatment. I was on Fruquintinib 5 mg p.o. day 1-20 1q28 day cycle in the 5th line setting. 2. 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 He has been tapered off prednisone and CellCept. He is also off the oxygen. 3. Chronic arthralgias. MS Contin was discontinued as it was not getting absorbed and coming out through his ostomy. He is now on fentanyl 50 mcg q.72 hours. Is not holding him for the 3 days, dose will be increased to 75 mcg q.72 hours. He is on oxycodone 5 mg for breakthrough pain 2 to 3 times a day. Because of increasing pain, increasing dose of fentanyl to 75 mcg q.72 hours. 4. Intermittent elevation of bilirubin, indirect bilirubinemia, probable Gilbert's syndrome. 5. Acute renal failure with hyperkalemia. He was admitted to the hospital 2022, nephrology consult was obtained. Imaging did not reveal hydronephrosis or obstructive uropathy. His acute kidney injury was related to prerenal azotemia secondary to poor intake and pneumonia. He was treated with IV hydration and antibiotics for pneumonia. He is feeling better now. His kidney functions have normalized. 6. Pancytopenia secondary to ongoing chemotherapy. 7. Hyponatremia, probably related to malignancy. SIADH is possible. I have advised him to increase salt intake. 8. Anorexia/weight loss secondary to ongoing treatment as well as progressive cancer. 9. Acute mental status change/panic attack. Patient was evaluated in the ED on 04/08/2024. Blood work and imaging was unrevealing. Patient says he has had such panic attacks before. He has met up with counselor, he is on medication and is doing well. 10. Disposition. Today we discussed hospice care with the patient. He has become extremely cachectic and no longer able to tolerate treatment. He is now willing for home hospice care. Prior discussions about this were had with the patient. He is DNR DNI. His came assess healthcare proxy. Referral placed to hospice and [facility] services of [facility]. - Time Spent With Patient Time Spent with Patient (in minutes): 20 Additional Coding: - Additional E/M codes Complex E/M visit Add On: CPT G2211
--- NOTE | 2024-07-29 13:04 | MHC.HEMONCMA ---
pt presents in the office today for metastatic colon cancer f/u, vss. pt will f/u with provider next week.
== END 2024-08-28 13:03 | disposition home or self-care (01) ==
LOC: HO.ONC 13:20
PROVIDERS: Internal Medicine Medical Oncology; PCP Internal Medicine; Visit Provider Internal Medicine
DX: C18.9 Malignant neoplasm of colon, unspecified; C78.7 Secondary malignant neoplasm of liver and intrahepatic bile duct; C78.00 Secondary malignant neoplasm of unspecified lung; E80.6 Other disorders of bilirubin metabolism; E87.5 Hyperkalemia; E87.1 Hypo-osmolality and hyponatremia; D61.818 Other pancytopenia; T45.1X5A Adverse effect of antineoplastic and immunosuppressive drugs, initial encounter; R63.0 Anorexia; R41.82 Altered mental status, unspecified; E83.42 Hypomagnesemia; Z79.891 Long term (current) use of opiate analgesic; Z93.2 Ileostomy status; Z66 Do not resuscitate
CPT/HCPCS: 0241U; 36415; 36430; 36591; 80053; 80307; 81001; 81003; 82378; 83735; 85007; 85025; 85027; 86850; 86900; 86901; 86923; 87040; 96360; 96361; 96365; 96366; 96367; 96368; 96372; 96375; 96376; 96409; 96411; 96413; 96415; 96416; 96417; 96523; 99212; 99213; 99214; 99215; J0461; J0640; J1100; J1200; J1453; J1642; J2060; J2270; J2405; J2506; J3475; J9035; J9055; J9190; J9206; P9016; Q0163

== ENCOUNTER 2024-08-03 08:15 | Inpatient (IN) | payer OTHER, SELFPAY ==
[2024-08-03] VITALS (7 sets, daily range): BP systolic 92–138; BP diastolic 54–104; PULSE 45–137; RESP 12–20; TEMP 35.6–36.7; O2SAT 91; BMI 14.9
--- NOTE | 2024-08-03 08:21 | PC.NURSE ---
Per Allen Stauffer MD - pt. is on hospice. No triage vitals, no night monitor, no blood work, no IV/IV sticks. At this time, pt. is only on 2L NC for comfort. Pt. reports no pain at this time and states that he does not want any additional pain medications. Plan of care ongoing.
--- NOTE | 2024-08-03 08:31 | ED.ABDPAIN ---
HPI - Abdominal Pain General Chief Complaint: General Medical Stated Complaint: PAIN MANAGEMENT Time Seen by Provider: 08/03/24 08:19 Source: patient, EMS and other (Hospitalist nurse) Mode of arrival: ambulatory Limitations: no limitations History of Present Illness ED Provider: Dr. Saran Stauffer HPI narrative: 63-year-old male with a PMH significant for ILD/pulmonary fibrosis and metastatic colon cancer with metastasis to liver and lung who was brought to emergency department for evaluation for pain management and management of agitation. Patient is on hospice and apparently they are having difficulty controlling his pain at home. According to paramedics, the patient received morphine and Ativan sublingually 45 minutes prior to coming to the emergency department. Patient has been complaining of your night and kept the moving his colostomy bag. Here in the emergency department the patient was oriented to person. He states that he has been getting pain medications but he does not want any pain medication at this time. He was requesting fluid to drink. The following text message was sent to ED case management regarding this patient : Good morning. We have a patient that?s having uncontrolled agitation at home (becoming combative, removing his ostomy bag multiple times over night, getting out of bed, removing his clothes, etc). The patient is not responding to PO meds at home. It looks like the patient may already be in the ED or on his way and report was called in to Herminia the charge nurse by our on-call nurse Amparo. The patients name is Milind Bustamante. He is a patient of Dr. Devine and was referred by her. We are asking for a GIP admission to assist with controlling his behavior at this time. Once we can determine a way to manage his agitation at home and without the use of any IV meds we can transition the patient back home. He?s on hospice for metastatic cancer. Related Data Home Medications ?Medication ?Instructions ?Recorded ?Confirmed acetaminophen 650 mg 650 mg PO Q6H PRN Pain 08/04/22 04/10/24 tablet,extended release loperamide 2 mg tablet (Imodium 4 mg PO DAILY PRN Loose Stool 04/10/24 06/11/24 A-D) clonazepam 0.5 mg disintegrating 0.5 mg PO DAILY 06/11/24 06/11/24 tablet Previous Rx's ?Medication ?Instructions ?Recorded colostomy bag, non-sterile 1 08/14 #10 ea 03/29/21 (12 ) (Natura Drainable Pouch) omeprazole 40 mg capsule,delayed 40 mg PO DAILY@0630 09/07/23 release ondansetron HCl 8 mg tablet 8 mg PO Q6-8H PRN Nausea And 10/22/23 Vomiting #60 tabs ferrous sulfate 325 mg (65 mg 325 mg PO BID #60 tabs 11/30/23 iron) tablet (iron) Magic Mouthwash 10 ml PO TID #240 mL 04/16/24 Diphen/Lido/Antacid 1:1:1 240 mL suspension doxycycline hyclate 100 mg tablet 100 mg PO BID #20 tabs 04/16/24 quetiapine 25 mg tablet (Seroquel) 25 mg PO BEDTIME #30 tabs 04/28/24 fruquintinib 5 mg capsule 5 mg PO DAILY #21 caps 07/09/24 fentanyl 75 mcg/hr transdermal 1 patch transdermal Q72H #10 ea 07/18/24 patch magnesium oxide 800 mg (2 x 400 mg magnesium) PO 07/18/24 DAILY #60 tabs cholestyramine (with sugar) 4 gram 1 ea PO BID #60 ea 07/29/24 powder for susp in a packet (Questran) cholestyramine (with sugar) 4 gram 4 g PO BID #180 ea 07/29/24 powder for susp in a packet (Questran) oxycodone 5 mg tablet 5 mg PO Q8H PRN Pain #60 tabs 07/29/24 Allergies Allergy/AdvReac Type Severity Reaction Status Date / Time prednisone [PREDNISONE] AdvReac Intermediate Psychosis Verified 08/03/24 08:55 PMFSH Past Medical History Medical History Encounter for ostomy care education Multifocal pneumonia Hyponatremia Colon cancer metastasized to liver Pulmonary nodule Colon cancer metastasized to liver Pulmonary fibrosis ILD (interstitial lung disease) Chronic respiratory failure Tubular adenoma Colon cancer metastasized to liver Surgical History H/O knee surgery Family History Family History Son Cystic fibrosis Brother Esophageal cancer Maternal Aunt Lung cancer Social History Social History Household Members: Spouse Housing: House Do you presently have visiting nurse or other home services: Yes Alcohol intake: former Year quit: 2019 Patient Tobacco Use Status: Former Tobacco user Tobacco use type: Cigarette e-Cigarette/Vaping Use: Former Use Second Hand Smoke Exposure: No Substance Use Type: Marijuana Advance Directives: Yes Advance Directives on File: Yes Advance Directives Date on File: 12/12/22 Do you have a plan to hurt others: No Plan service: No Current occupational status: employed Current occupation: [employer] Cognitive needs: No Hearing needs: No Vision needs: No Physical Exam ED Vital Signs: BMI result Body Mass Index 14.9 Exam: General: Patient was awake, he is emaciated and very skeletal in appearance. EENT: Mouth revealed dry mucous membranes Neck: Supple, no adenopathy Lung: breath sounds symmetric, no wheezing, rales or rhonchi Chest: symmetric movement, nontender Heart: regular rate and rhythm, normal S1, S2 no murmurs or rubs Abdomen: soft, mild diffuse tenderness, colostomy bag left lower quad Psych: Pleasant, cooperative Medical Decision Making Medical Decision Making MDM Narrative: 63-year-old male with a PMH significant for ILD/pulmonary fibrosis and metastatic colon cancer with metastasis to liver and lung who was brought to emergency department for evaluation for pain management and management of agitation. Patient was on hospice care and he did receive sublingual morphine and Ativan prior to coming to the emergency department. Patient told me they does not want pain medications at this time but he only wants fluid to drink. Differential diagnosis: ?Includes but is not limited to intractable pain, dehydration, volume depletion Course: 08:58 hours The patient was on hospice care therefore we will not do any vital signs or testing on this patient. At this time the patient does not want pain medications. Patient was sent to the emergency department by his hospice nurse since they were having difficulty managing the patient's agitation Hospice is requesting GIP admission to assist with controlling his behavior at this time. I did discuss the patient's presentation over [facility] hospitalist, Dr. Cordova. 09:32 I did discuss the patient with the hospitalist department. Patient was extremely agitated and was complaining of pain overnight and the hospitalist nurse recommended IV management at this time. Patient was given morphine 2 mg IV and Ativan 1 mg IV. The hospice nurse also discuss the plan with the covering hospitalist, Dr. Berg. Admission/Observation Consideration of admission/observation: Escalation of care including admission/observation considered (Yes) Consult Healthcare Provider Management of the patient was discussed with: Hospitalist (Dr Cordova) Chronic Conditions Patient?s care impacted by: Other (Metastatic colon cancer, hospice care) Discharge Plan Discharge Clinical Impression: Agitation, Colon cancer, Inadequate pain control, Admission for hospice care Patient Disposition: Admitted As Inpatient Print Language: Austrian
--- NOTE | 2024-08-03 10:06 | PM.IMHP ---
History of Present Illness Date of Service: 08/03/24 Chief Complaint: agitation 64M PMH metastatic colon cancer on home hospice presented with agitation. Patient was agitated home pulling at ostomy tube unable to be managed with p.o. meds. Brought to ED for better symptom control. Review of Systems Review of Systems: Yes Unobtainable due to mental condition PMFSH Medical History Encounter for ostomy care education Multifocal pneumonia Hyponatremia Colon cancer metastasized to liver Pulmonary nodule Colon cancer metastasized to liver Pulmonary fibrosis ILD (interstitial lung disease) Chronic respiratory failure Tubular adenoma Colon cancer metastasized to liver Family History Son Cystic fibrosis Brother Esophageal cancer Maternal Aunt Lung cancer Surgical History H/O knee surgery Social History Household Members: Spouse Housing: House Do you presently have visiting nurse or other home services: Yes Alcohol intake: former Year quit: 2019 Patient Tobacco Use Status: Former Tobacco user Tobacco use type: Cigarette e-Cigarette/Vaping Use: Former Use Second Hand Smoke Exposure: No Substance Use Type: Marijuana Advance Directives: Yes Advance Directives on File: Yes Advance Directives Date on File: 12/12/22 Do you have a plan to hurt others: No Plan service: No Current occupational status: employed Current occupation: [employer] Cognitive needs: No Hearing needs: No Vision needs: No Meds Allergies Allergy/AdvReac Type Severity Reaction Status Date / Time prednisone [PREDNISONE] AdvReac Intermediate Psychosis Verified 08/03/24 08:55 Active Medications: Current Medications Bisacodyl (Bisacodyl 10 Mg Supp.Rect) 10 mg [place] BEDTIME PRN PRN Reason: Constipation Haloperidol Lactate (Haloperidol Lactate 5 Mg/Ml Vial) 1 mg IVPUSH Q8H [facility] Lorazepam (Lorazepam 2 Mg/Ml Vial) 0.5 mg IVPUSH Q4H PRN PRN Reason: Anxiety Morphine Sulfate (Morphine Sulfate 2 Mg/Ml Cartridge) 2 mg IVPUSH Q2H PRN; Protocol PRN Reason: agitation Morphine Sulfate (Morphine Sulfate 2 Mg/Ml Cartridge) 2 mg IVPUSH Q4H [facility]; Protocol Ondansetron HCl (Ondansetron Hcl 4 Mg/2 Ml Vial) 4 mg IVPUSH Q6H PRN PRN Reason: Nausea Quetiapine Fumarate (Quetiapine Fumarate 25 Mg Tablet) 25 mg PO BEDTIME [facility] Home Medications ?Medication ?Instructions ?Recorded ?Confirmed ?Last Taken ?Type acetaminophen 650 mg 650 mg PO Q6H PRN Pain 08/04/22 04/10/24 Unknown History tablet,extended release loperamide 2 mg tablet (Imodium 4 mg PO DAILY PRN Loose Stool 04/10/24 06/11/24 Unknown History A-D) clonazepam 0.5 mg disintegrating 0.5 mg PO DAILY 06/11/24 06/11/24 Unknown History tablet Physical Exam Vital Signs and Narrative: Vital Signs: BMI result Body Mass Index 14.9 lethargic, cachexic, ill appearing Assessment and Plan (1) Admission for hospice care: Status: Acute Plan 64M PMH metastatic colon cancer on home hospice presented with agitation Metastatic colon cancer complicated by agitation Admit to [facility] hospice IV morphine 2 mg q.4 hours around the clock, 2 mg q.2h p.r.n. Seroquel 25 mg Ativan 0.5 mg IV q.4 hours p.r.n. anxiety Haldol 1 mg IV Q 8 hours around the clock Zofran as needed Dulcolax for constipation as needed Quality Stroke Does the patient have a stroke diagnosis?: No VTE Prior VTE?: No VTE Risk Level:: Medical - moderate - high VTE Device Contraindication: Treatment Not Indicated VTE Drug Contraindication: Treatment Not Indicated
--- NOTE | 2024-08-03 10:11 | MHC.CM.ED ---
Received notification from [facility] that patient is active with their agency and will need to be admitted under GIP for pain control. Dr Stauffer and Paula Castro aware. Continue to monitor for d/c needs.
[2024-08-03] MEDS: Morphine Sulfate 2 MG/ML CARTRIDGE IVPUSH ×4 (11:20→22:59)
[2024-08-03] MEDS: Haloperidol Lactate 5 MG/ML VIAL 1 MG IVPUSH ×2 (11:20→19:49)
--- NOTE | 2024-08-03 12:24 | PHA.MEDREC ---
Pharmacy Consult ? Medication Reconciliation Pharmacy has completed the medication reconciliation. Spoke with hospice nurse over the phone to confirm patients medications. There was no fentanyl patches on their list. I called the patients and she reports fentanyl patches were picked up a few days ago and a nurse applied one on Sunday around 2 PM. Nurse Roro in ED reports there is no patch on the patient. Leaving off of home list, will notify .
[2024-08-03] MEDS: LORazepam 2 MG/ML VIAL 0.5 MG IVPUSH ×2 (12:50→16:56)
[2024-08-03] MEDS: QUEtiapine Fumarate 25 MG TABLET PO (20:45)
[2024-08-04] MEDS: LORazepam 2 MG/ML VIAL 0.5 MG IVPUSH ×6 (00:26→22:50)
[2024-08-04] MEDS: Haloperidol Lactate 5 MG/ML VIAL 1 MG IVPUSH ×5 (02:23→22:49)
[2024-08-04] MEDS: Morphine Sulfate 2 MG/ML CARTRIDGE IVPUSH ×8 (02:24→22:51)
--- NOTE | 2024-08-04 06:01 | PC.NURSE ---
Pt very restless throughout the night even with the pain medication administered. Pt restless trying to throw legs over railing and disrobing. Warm blankets and packs applied to patient to attempt to sooth patient, and repositioned patient frequently, to improve comfort.
--- NOTE | 2024-08-04 08:24 | HO.PM.IMPN ---
Subjective Subjective Date of Service: 08/04/24 Interval History: agitated overnight Physical Exam Vital Signs: Vital Signs: Last Vital Signs Temp 96.1 F L 08/03/24 14:02 Pulse 45 L 08/03/24 14:02 Resp 12 08/03/24 18:21 BP 92/54 L 08/03/24 14:02 O2 Del Method Room Air 08/03/24 11:10 BMI result Body Mass Index 14.9 frail ill apperaing, cachexic, obtunded, appears more comfortable now Objective Data Active Medications Bisacodyl (Bisacodyl 10 Mg Supp.Rect) 10 mg [place] BEDTIME PRN PRN Reason: Constipation Haloperidol Lactate (Haloperidol Lactate 5 Mg/Ml Vial) 1 mg IVPUSH Q8H [facility] Last Admin: 08/04/24 02:23 Dose: 1 mg Documented By: ANGELITO Lorazepam (Lorazepam 2 Mg/Ml Vial) 0.5 mg IVPUSH Q4H PRN PRN Reason: Anxiety Last Admin: 08/04/24 04:23 Dose: 0.5 mg Documented By: ANGELITO Morphine Sulfate (Morphine Sulfate 2 Mg/Ml Cartridge) 2 mg IVPUSH Q2H PRN; Protocol PRN Reason: agitation Last Admin: 08/04/24 05:26 Dose: 2 mg Documented By: ANGELITO Morphine Sulfate (Morphine Sulfate 2 Mg/Ml Cartridge) 2 mg IVPUSH Q4H [facility]; Protocol Last Admin: 08/04/24 07:36 Dose: 2 mg Documented By: BEAR Ondansetron HCl (Ondansetron Hcl 4 Mg/2 Ml Vial) 4 mg IVPUSH Q6H PRN PRN Reason: Nausea Quetiapine Fumarate (Quetiapine Fumarate 25 Mg Tablet) 25 mg PO BEDTIME [facility] Last Admin: 08/03/24 20:45 Dose: 25 mg Documented By: ANGELITO Assessment and Plan (1) Admission for hospice care: Status: Acute Plan 64M PMH metastatic colon cancer on home hospice presented with agitation Metastatic colon cancer complicated by agitation IV morphine 2 mg q.4 hours around the clock, 2 mg q.2h p.r.n. Seroquel 25 mg Ativan 0.5 mg IV q.4 hours p.r.n. anxiety Haldol 1 mg IV Q 8 hours around the clock Zofran as needed Dulcolax for constipation as needed follow up hospice reason for continued hospitalization:symtpoms not adequately controlled Quality Stroke Does the patient have a stroke diagnosis?: No VTE Prior VTE?: No VTE Risk Level:: Medical - moderate - high VTE Device Contraindication: Treatment Not Indicated VTE Drug Contraindication: Treatment Not Indicated
[2024-08-04] MEDS: fentaNYL 75 MCG PATCH.TD72 TRANSDERMA (14:59)
[2024-08-05] MEDS: Haloperidol Lactate 5 MG/ML VIAL 1 MG IVPUSH ×3 (02:54→10:52)
[2024-08-05] MEDS: LORazepam 2 MG/ML VIAL 0.5 MG IVPUSH ×3 (02:54→10:51)
[2024-08-05] MEDS: Morphine Sulfate 2 MG/ML CARTRIDGE IVPUSH ×3 (02:55→10:51)
--- NOTE | 2024-08-05 08:39 | HO.PM.IMPN ---
Subjective Subjective Date of Service: 08/05/24 Interval History: symptoms better controlled Physical Exam Vital Signs: Vital Signs: Last Vital Signs Temp 96.1 F L 08/03/24 14:02 Pulse 45 L 08/03/24 14:02 Resp 12 08/03/24 18:21 BP 92/54 L 08/03/24 14:02 O2 Del Method Room Air 08/03/24 11:10 BMI result Body Mass Index 14.9 frail ill apperaing, cachexic, obtunded, appears more comfortable now Objective Data Active Medications Bisacodyl (Bisacodyl 10 Mg Supp.Rect) [address] BEDTIME PRN PRN Reason: Constipation Fentanyl (Fentanyl 75 Mcg Patch.[id number]) 75 mcg TRANSDERMA Q72H [facility]EDA Last Admin: 08/04/24 14:59 Dose: 75 mcg Documented By: BEAR Haloperidol Lactate (Haloperidol Lactate 5 Mg/Ml Vial) 1 mg IVPUSH Q4H [facility]EDA Last Admin: 08/05/24 06:34 Dose: 1 mg Documented By: DESMOND Lorazepam (Lorazepam 2 Mg/Ml Vial) 0.5 mg IVPUSH Q4H PINEDA Last Admin: 08/05/24 06:35 Dose: 0.5 mg Documented By: DESMOND Morphine Sulfate (Morphine Sulfate 2 Mg/Ml Cartridge) 2 mg IVPUSH Q2H PRN; Protocol PRN Reason: agitation Last Admin: 08/04/24 05:26 Dose: 2 mg Documented By: ANGELITO Morphine Sulfate (Morphine Sulfate 2 Mg/Ml Cartridge) 2 mg IVPUSH Q4H [facility]; Protocol Last Admin: 08/05/24 06:35 Dose: 2 mg Documented By: DESMOND Ondansetron HCl (Ondansetron Hcl 4 Mg/2 Ml Vial) 4 mg IVPUSH Q6H PRN PRN Reason: Nausea Quetiapine Fumarate (Quetiapine Fumarate 25 Mg Tablet) 25 mg PO BEDTIME [facility] Last Admin: 08/04/24 20:33 Dose: Not Given Documented By: DESMOND Non-Admin Reason: unable to swallow Assessment and Plan (1) Admission for hospice care: Status: Acute Plan 64M PMH metastatic colon cancer on home hospice presented with agitation Metastatic colon cancer complicated by agitation IV morphine 2 mg q.4 hours around the clock, 2 mg q.2h p.r.n. Seroquel 25 mg Ativan 0.5 mg IV q.4 hours changed to around the clock Haldol 1 mg IV Q8H increased to Q4H around the clock Zofran as needed Dulcolax for constipation as needed follow up hospice reason for continued hospitalization:requiring IV meds to manage symptoms Quality Stroke Does the patient have a stroke diagnosis?: No VTE Prior VTE?: No VTE Risk Level:: Medical - moderate - high VTE Device Contraindication: Treatment Not Indicated VTE Drug Contraindication: Treatment Not Indicated
--- NOTE | 2024-08-05 14:20 | PM.DDS ---
Discharge Sum: Prov Provider Primary care physician: Jono Headley MD Discharge Sum: Diag Contributing Factors (1) Admission for hospice care: Discharge Sum: Summary Date and Time Date of admission: 08/03/24 10:09 Date of : 08/05/24 Time of : 14:15 Summary Details: from initial hpi: 64M PMH metastatic colon cancer on home hospice presented with agitation. Patient was agitated home pulling at ostomy tube unable to be managed with p.o. meds. Brought to ED for better symptom control hospital course: Patient was admitted for metastatic colon cancer complicated by agitation. He was given IV morphine, Haldol, Ativan, Seroquel. Patient continued to be agitated, doses of medication slowly increased to improve symptoms. On 08/05/2024 patient found to be apneic, asystolic, time of 14:15. Additional Data Attending physician: Pepe Berg MD
--- NOTE | 2024-08-05 14:45 | PC.NURSE ---
pt found with no respiration and no present heart sounds ay 1357. MD notified came to pronounce. notified of by MD. [facility] called and requested hold on body. came and took belongings.
== END 2024-08-05 14:45 | disposition expired | DRG 951 ==
LOC: HO.ED 09:06 → HO.EDOVER 10:14 → HO.S3 11:49
PROVIDERS: Admitting Provider Internal Medicine; Emergency Provider Emergency Medicine Emergency Medical Services; PCP Internal Medicine; Visit Provider Internal Medicine
DX: Z51.5 Encounter for palliative care (principal); C18.9 Malignant neoplasm of colon, unspecified; C78.7 Secondary malignant neoplasm of liver and intrahepatic bile duct; C78.00 Secondary malignant neoplasm of unspecified lung; K59.00 Constipation, unspecified; G89.3 Neoplasm related pain (acute) (chronic); Z93.3 Colostomy status; Z87.891 Personal history of nicotine dependence; Z79.899 Other long term (current) drug therapy
CPT/HCPCS: 99285; J1630; J2060; J2270

== ENCOUNTER → 2024-08-03 09:03 | Outpatient (BNV) | payer OTHER, SELFPAY | PROVIDERS: Emergency Provider Emergency Medicine Emergency Medical Services; PCP Internal Medicine; Visit Provider Internal Medicine | DX: Z51.5 Encounter for palliative care (principal) | CPT/HCPCS: 99223; 99232; 99238 ==